=== PATIENT | female | born 1935 | race Hispanic/Latino ===

== ENCOUNTER 2016-12-25 11:32 | Inpatient (IN) | payer MEDICARE, OTHER ==
--- NOTE | 2016-12-25 12:21 | ED PDOC ---
Arrival/HPI - General Chief Complaint: Palpitations Time Seen by Provider: 12/25/16 11:59 Historian: Family EM Caveat: Language Barrier ([place] translating as per patient request) - History of Present Illness Narrative History of Present Illness (Text): 12/25/16 12:00 A 81 year old female, whose past medical history includes hypertension, hyperlipidemia, and previous blood infection, who is sent into the emergency department by PMD for a high heart rate. Patient's daughter states this morning the visiting nurse came to the house and told them to patient heart rate was 157 , so they should go see her PMD. Patient was at the PMD's office for about 2 hours but the heart rate did not decrease so she sent her to the emergency department. Patient's daughter states the patient is asymptomatic and denies any chest pain, palpitations, fever or any other complaints at this time. PMD: Dr. Huitron Past Medical History - Provider Review Nursing Documentation Reviewed: Yes - Past Medical History Past Medical History: No Previous - Cardiac Hx Cardiac Disorders: Yes Hx Hypertension: Yes - Neurological Hx Neurological Disorder: Yes (SYNCOPE) Hx Dizziness: Yes - Renal Hx Renal Disorder: Yes (ATONIC BLADDER,) - Hematological/Oncological Hx Cancer: Yes (uterine 2003 in had radiation) - Musculoskeletal/Rheumatological Hx Musculoskeletal Disorders: Yes (chronic r hip pain) Hx Arthritis: Yes (OSTEOARTHRITIS) Hx Falls: Yes Hx Osteoarthritis: Yes Hx Unsteady Gait: Yes - Gastrointestinal Hx Gastrointestinal Disorders: Yes (chronic diarrhea x 2 months on and off- IRRITABLE BOWEL SYNDROME) Hx Gastroesophageal Reflux: Yes - Genitourinary/Gynecological Hx Genitourinary Disorders: (urgency/frequency/HESITANCY-ATONIC BLADDER) Other/Comment: CERVICAL CA WITH RADIATION - Psychiatric Hx Psychophysiologic Disorder: Yes (INSOMNIA) Hx Anxiety: Yes Hx Depression: Yes (took paxil for the 1st time last night) Hx Substance Use: No - Past Surgical History Past Surgical History: No Previous - Surgical History Hx Cholecystectomy: Yes Hx Hysterectomy: Yes Other/Comment: pt has uterine ca with radiation in 2003 and had bladder lift for urinary problems post radiation - Anesthesia Hx Anesthesia: Yes Hx Anesthesia Reactions: No Hx Malignant Hyperthermia: No - Suicidal Assessment Feels Threatened In Home Enviroment: No Family/Social History - Physician Review Nursing Documentation Reviewed: Yes Family/Social History: No Known Family HX Smoking Status: Never Smoked Hx Alcohol Use: No Hx Substance Use: No Allergies/Home Meds Allergies/Adverse Reactions: Allergies No Known Allergies Allergy (Verified 12/25/16 11:48) Home Medications: Home Meds Medication Instructions Recorded Confirmed Amlodipine Besylate [Norvasc] 10 mg PO DAILY 12/16/14 12/25/16 Paroxetine HCl [Paxil] 20 mg PO DAILY 12/16/14 12/25/16 Enalapril/Hydrochlorothiazide 1 tab PO DAILY 10/06/16 12/25/16 [Enalapril-Hctz 10-25 mg Tablet] Temazepam [Restoril] 15 mg PO HS 10/06/16 12/25/16 Zolpidem [Ambien] 5 mg PO HS PRN 10/08/16 12/25/16 Review of Systems - Physician Review All systems were reviewed & negative as marked: Yes - Review of Systems Constitutional: absent: Fevers Respiratory: absent: SOB Cardiovascular: Other (high heart rate). absent: Chest Pain, Palpitations Physical Exam Vital Signs Reviewed: Yes Vital Signs Temp Pulse Resp BP Pulse Ox 12/25/16 14:44 76 18 138/85 98 12/25/16 13:19 156 H 18 129/73 99 12/25/16 12:52 143 H 118/78 12/25/16 12:20 156 H 125/62 12/25/16 11:52 98 F 157 H 18 136/88 95 Temperature: Afebrile Blood Pressure: Normal Pulse: Tachycardic Respiratory Rate: Normal Appearance: Positive for: Well-Appearing, Non-Toxic, Comfortable Pain Distress: None Mental Status: Positive for: Alert and Oriented X 3 - Systems Exam Head: Present: Atraumatic, Normocephalic Pupils: Present: PERRL Conjunctiva: Present: Normal Mouth: Present: Moist Mucous Membranes Pharnyx: Present: Normal. No: ERYTHEMA, EXUDATE Neck: Present: Normal Range of Motion Respiratory/Chest: Present: Clear to Auscultation, Good Air Exchange. No: Respiratory Distress, Accessory Muscle Use Cardiovascular: Present: Normal S1, S2, Tachycardic. No: Murmurs Abdomen: Present: Normal Bowel Sounds. No: Tenderness, Distention, Peritoneal Signs Back: Present: Normal Inspection Upper Extremity: Present: Normal Inspection. No: Cyanosis, Edema Lower Extremity: Present: Normal Inspection. No: Edema Neurological: Present: GCS=15, CN II-XII Intact, Speech Normal Skin: Present: Warm, Dry, Normal Color. No: Rashes Psychiatric: Present: Alert, Oriented x 3, Normal Insight, Normal Concentration Medical Decision Making ED Course and Treatment: 12/25/16 12:00 Impression: A 81 year old female sent in for a high heart rate with no symptoms. Differential Diagnosis include but are not limited to: supraventricular tachycardia vs rapid afib/flutter. Plan: -- EKG -- Chest X-ray -- Labs -- Urinalysis -- Adenosine -- Reassess and disposition Prior Visits: Notes and results from previous visits were reviewed. The patient last presented to the emergency department on 12/07/16 for evaluation of abdominal pain associated with nausea, vomiting and diarrhea. Progress Notes: EKG: Ordered, reviewed, and independently interpreted the EKG. Rate : 157 BPM Rhythm : Narrow complex tachycardia (appears regular) Interpretation : Nonspecific ST/T changes; No ST elevations; Normal QRS. 12/25/16 12:06 Patient given Adenosine 6mg/2ml Inj. Patient's heart rate dropped briefly from 150's - 120's. 12/25/16 12:11 Second dose of Adenosine 12 mg Patient's heart rate dropped down to the 40's but went back up into the 150's; when low, it appeared irregular. Will give 10mg of Cardizem. 12/25/16 12:37 Cardizem was given to patient. Patient showing slower afib. Will give another dose of Cardizem 10mg and place patient of a Cardizem drip. 12/25/16 13:04 Patient has a elevated D-Dimer, Will order a Angio Chest CT. 12/25/16 13:32 Repeat EKG: Ordered, reviewed, and independently interpreted the EKG. Rate : 103 BPM Rhythm : Atrial fibrillation/Flutter Interpretation : Left axis deviation, No ST/T changes. 12/25/16 14:00 Chest X-Ray: Creator : Rome Bird MD COMPARISON: 10/06/2016 and 12/08/2014. FINDINGS: No active pulmonary disease. No pulmonary nodules, masses or infiltrates. No evidence of acute, significant cardiovascular disease. No significant pleural, osseous or subdiaphragmatic abnormalities. IMPRESSION: No active disease. No acute/significant interval changes. 12/25/16 15:25 Patient on cardizem drip - will need to be admitted for new onset afib with RVR. Case discussed with Dr. Pacheco. - Critical Care Critical Care Minutes: 30 minutes - Lab Interpretations Lab Results: 12/25/16 12:15 12/25/16 12:15 Lab Results 12/25/16 12:15: WBC 8.7 D, RBC 3.65, Hgb 10.0 L, Hct 31.6 L, MCV 86.6, MCH 27.4 , MCHC 31.6, RDW 14.5, Plt Count 464 H, MPV 10.1, Gran % 71.4 H, Lymph % (Auto) 19.9 L, [place] % (Auto) 6.9 H, Eos % (Auto) 1.3 L, Baso % (Auto) 0.5, Gran # 6.23 , Lymph # 1.7, [place] # 0.6, Eos # 0.1, Baso # 0.04, PT 11.5, INR 1.06, APTT 26.4 , D-Dimer, Quantitative 2.51 H, Sodium 140, Potassium 3.8, Chloride 106, Carbon Dioxide 22, Anion Gap 16, BUN 16, Creatinine 1.0, Est GFR ( Amer) > 60, Est GFR (Non-Af Amer) 53, Random Glucose 115 H, Calcium 9.1, Total Bilirubin 0.4 , AST 31, ALT 35, Alkaline Phosphatase 92, Lactate Dehydrogenase 442, Total Creatine Kinase 47, Troponin I 0.01 D, NT-Pro-B Natriuret Pep 5090 H, Total Protein 7.2, Albumin 3.4, Globulin 3.8, Albumin/Globulin Ratio 0.9 L, Lipase 137 I have reviewed the lab results: Yes - RAD Interpretation Radiology Orders: 12/25/16 12:13 CHEST PORTABLE [RAD] Stat 12/25/16 13:04 ANGIO CHEST PE PROTOCOL [CT] Stat - Medication Orders Current Medication Orders: diltiaZEM IVPB 100mg in NS (Cardizem 100mg In Ns) 100 mls @ 5 mls/hr IV .Q20H STA; 5 MG/HR PRN Reason: Protocol Stop: 12/26/16 08:36 Last Admin: 12/25/16 12:52 Dose: 5 MLS/HR Titration Intervention Document 12/25/16 12:52 [facility] (Rec: 12/25/16 12:53 [place] [id number]) Titration Intake Container Volume 100 Titration Dosing Titration Dose 5 IV Rate 5 Intake/Decrease Start eMAR Start Stop Document 12/25/16 12:52 [facility] (Rec: 12/25/16 12:53 [place] [id number]) Intravenous Solution Start Date 12/25/16 Start Time 12:53 Discontinued Medications Adenosine (Adenosine 6 Mg/2 Ml Inj) Confirm Administered Dose 18 mg .ROUTE .STK- MED ONE Stop: 12/25/16 12:01 Last Admin: 12/25/16 12:05 Dose: 6 MG Adenosine (Adenosine 6 Mg/2 Ml Inj) 12 mg IVP STAT STA Stop: 12/25/16 12:15 Last Admin: 12/25/16 12:08 Dose: 12 MG IVP Administration Document 12/25/16 12:08 [facility] (Rec: 12/25/16 12:22 [place] [id number]) Charges for Administration # of IVP Administrations 2 Adenosine (Adenosine 6 Mg/2 Ml Inj) 6 mg IVP STAT STA Stop: 12/25/16 12:15 Last Admin: 12/25/16 12:05 Dose: 6 MG Comments: duplicate IVP Administration Document 12/25/16 12:05 [facility] (Rec: 12/25/16 12:22 [place] [id number]) Charges for Administration # of IVP Administrations 1 Diltiazem HCl (Cardizem) 10 mg IVP STAT STA Stop: 12/25/16 12:16 Last Admin: 12/25/16 12:20 Dose: 10 MG MAR Pulse and Blood Pressure Document 12/25/16 12:20 [facility] (Rec: 12/25/16 12:20 [place] [id number]) Pulse Pulse Rate (60-90) 156 Blood Pressure Blood Pressure (100/60-150/90) 125/62 IVP Administration Document 12/25/16 12:20 [facility] (Rec: 12/25/16 12:20 [place] [id number]) Charges for Administration # of IVP Administrations 1 Diltiazem HCl (Cardizem) 10 mg IVP STAT STA Stop: 12/25/16 12:38 Last Admin: 12/25/16 12:52 Dose: 10 MG MAR Pulse and Blood Pressure Document 12/25/16 12:52 [facility] (Rec: 12/25/16 12:52 [facility] [id number]) Pulse Pulse Rate (60-90) 143 Blood Pressure Blood Pressure (100/60-150/90) 118/78 IVP Administration Document 12/25/16 12:52 [facility] (Rec: 12/25/16 12:52 [facility] [id number]) Charges for Administration # of IVP Administrations 2 Iodixanol (Visipaque 320 Mg/Ml 100 Ml) Confirm Administered Dose 100 ml IV .tvCompass- MED ONE Stop: 12/25/16 13:15 - Scribe Statement The provider has reviewed the documentation as recorded by the Scribe Claudia Mendez Provider Scribe Attestation: All medical record entries made by the Scribe were at my direction and personally dictated by me. I have reviewed the chart and agree that the record accurately reflects my personal performance of the history, physical exam, medical decision making, and the department course for this patient. I have also personally directed, reviewed, and agree with the discharge instructions and disposition. Disposition/Present on Arrival - Present on Arrival Any Indicators Present on Arrival: No History of DVT/PE: No History of Uncontrolled Diabetes: No Urinary Catheter: No History of Decub. Ulcer: No History Surgical Site Infection Following: None - Disposition Have Diagnosis and Disposition been Completed?: Yes Diagnosis: Rapid atrial fibrillation Disposition: HOSPITALIZED Disposition Time: 13:40 Patient Plan: Admission, Telemetry Patient Problems: Current Active Problems Problem Status Diagnosed Acute bronchitis Acute Anemia of chronic disease Acute Sepsis due to Escherichia coli (E. coli) Acute Urinary tract infection Acute Syncope Resolved Condition: FAIR
[2016-12-25 12:27] LABS: ADD MANUAL DIFF? NO
[2016-12-25] MEDS ORDERED: diltiaZEM IVPB 100mg in NS 100 ML IV STA ×2 (12:37→18:00)
[2016-12-25 12:41] LABS: ALB/GLOB RATIO 0.9 (1.1-1.8); ALKALINE PHOSPHATASE 92 U/L (38-133); ALT/SGPT 35 U/L (7-56); AST/SGOT 31 U/L (15-39); BILIRUBIN,TOTAL 0.4 mg/dL (0.2-1.3); BLOOD UREA NITROGEN 16 mg/dL (7-21); CALCIUM 9.1 mg/dL (8.4-10.5); CARBON DIOXIDE 22 mmol/L (21-33); CHLORIDE 106 mmol/L (98-107); GFR AFRICAN-AMERICAN > 60; GLUCOSE,RANDOM 115 mg/dL (70-110); LIPASE 137 U/L (23-300); POTASSIUM 3.8 mmol/L (3.6-5.0); SODIUM 140 mmol/L (132-148); TOTAL PROTEIN 7.2 g/dL (5.8-8.3)
[2016-12-25 12:42] LABS: BASO # 0.04 K/mm3 (0.0-2.0); BASO % 0.5 % (0.0-3.0); EOS # 0.1 (0.0-0.7); EOS % 1.3 % (1.5-5.0); GRAN # 6.23 (1.4-6.5); GRAN % 71.4 % (50.0-68.0); HEMATOCRIT 31.6 % (36.0-48.0); LYMPH # 1.7 (1.2-3.4); LYMPH % 19.9 % (22.0-35.0); MEAN CELL VOLUME 86.6 fL (80.0-105.0); MEAN CORPUSCULAR HEMOGLOBIN 27.4 pg (25.0-35.0); MEAN CORPUSCULAR HGB CONC 31.6 g/dl (31.0-37.0); MEAN PLATELET VOLUME 10.1 fl (7.0-11.0); MONO # 0.6 (0.1-0.6); MONO % 6.9 % (1.0-6.0); PLATELET COUNT 464 10^3/uL (120.0-450.0); RED CELL DISTRIBUTION WIDTH 14.5 % (11.5-14.5); WHITE BLOOD COUNT 8.7 10^3/ul (4.5-11.0)
[2016-12-25 12:53] LABS: TROPONIN I 0.01 ng/mL
[2016-12-25 13:00] LABS: INR 1.06 (0.93-1.08); PARTIAL THROMBOPLASTIN TIME 26.4 Seconds (23.7-30.8)
[2016-12-25 13:02] LABS: D DIMER 2.51 mg/L FEU (0-0.50)
[2016-12-25] MEDS ORDERED: Iodixanol 320 MG/ML 100 ML BOTTLE IV ONE (13:14)
--- NOTE | 2016-12-25 14:00 | RAD ---
PROCEDURE: Chest portable HISTORY: tachycardia COMPARISON: 10/06/2016 and 12/08/2014. TECHNIQUE: Technique: Single view portable semi erect @ 12:23. FINDINGS: No active pulmonary disease. No pulmonary nodules, masses or infiltrates. No evidence of acute, significant cardiovascular disease. No significant pleural, osseous or subdiaphragmatic abnormalities. IMPRESSION: No active disease. No acute/significant interval changes.
--- NOTE | 2016-12-25 15:07 | CT ---
PROCEDURE: CT Chest with contrast (Pulmonary Angiogram) HISTORY: new tachycardia, post-hosp - r/o PE COMPARISON: None available. TECHNIQUE: Axial computed tomography images were obtained of the chest in the pulmonary arterial phase of enhancement. Coronal and sagittal reformatted images were created and reviewed. Intravenous contrast dose: 100 mL of Omnipaque 350 Radiation dose: Total exam DLP = 597.15 mGy-cm. FINDINGS: PULMONARY ARTERIES: Unremarkable. No pulmonary embolism. AORTA: No acute findings. No thoracic aortic aneurysm. LUNGS: Mild pulmonary vascular congestion is noted. No evidence of pneumonia or mass lesion in the lungs. There is a partially calcified 8.5 millimeter nodule at the superior portion of the right lung lower lobe image 40 series 5. There is a pleural-based 7 millimeter nodule at the left lung base. PLEURAL SPACES: Unremarkable. No effusion or pneuomothorax. HEART: Mild cardiomegaly is noted. . No significant pericardial effusion. LYMPH NODES: Slightly prominent mediastinal lymph nodes. BONES, CHEST WALL: Unremarkable. No fracture or destructive lesion OTHER FINDINGS: Unremarkable. IMPRESSION: No evidence of pulmonary embolus. Mild cardiomegaly. Mild pulmonary vascular congestion. Right lung lower lobe partially calcified 8.5 millimeter nodule. 7 millimeter pleural based nodule at the left lung base. No evidence of pneumonia or mass lesion in the lungs. Small hiatus hernia. Mild esophageal mucosal thickening. Mildly enlarged thyroid gland.
[2016-12-25 15:08] LABS: PH,URINE 5.5 (4.7-8.0); URINE BILIRUBIN NEGATIVE (NEGATIVE); URINE BLOOD MODERATE (NEGATIVE); URINE GLUCOSE (UA) NEGATIVE (NEGATIVE); URINE KETONE NEGATIVE (NEGATIVE); URINE LEUKOCYTE ESTERASE TRACE Leu/uL (NEGATIVE); URINE PROTEIN 30 mg/dL (<30 mg/dL); URINE UROBILINOGEN 0.2 E.U./dL (<1 E.U./dL)
[2016-12-25 15:09] LABS: URINE APPEARANCE SL CLOUDY (CLEAR); URINE COLOR YELLOW (YELLOW)
[2016-12-25 15:21] LABS: URINE BACTERIA FEW (NEG)
--- NOTE | 2016-12-25 17:38 | CARD ---
APPROVED REPORT EKG Measurement Heart [id number] PA 112P [id number] <Conclusion> Junctional tachycardia vs A Flutter with 2:[address] and T wave abnormality Abnormal ECG
--- NOTE | 2016-12-25 18:14 | CARD ---
APPROVED REPORT EKG Measurement Heart [id number] <Conclusion> Atrial flutter with variable AV block Abnormal ECG
[2016-12-25] MEDS ORDERED: Enoxaparin 60 mg Syringe SC SCH ×2 (19:15)
[2016-12-25 19:16] VITALS: BMI 28.1
[2016-12-25] MEDS ORDERED: Magnesium Sulfate 2 GM in Sodium Chloride 0.9% 100 ML IVPB ONE (20:12)
--- NOTE | 2016-12-25 20:34 | CP.PCM.PN ---
Subjective - Date & Time of Evaluation Date of Evaluation: 12/25/16 Time of Evaluation: 20:09 - Subjective Subjective: Nurse called and told that Mag level was 1.6 mEq. Patient was seen at bedside. Speaks Ch[place]. Has no acute symptoms now. This 81 year old woman was admitted with atrial fibrillation with RVR. Has PMH of HTN,HLD,depression, chronic insomnia , OA of right hip, UTI, appendectomy. 1:19 Later on, I was called and told that monitor showed atrial fibrillation with RVR ,rate sustaining above 130 per minute. I had increased cardizem from 10 ml per hour to 15 ml per hour. Objective - Vital Signs/Intake and Output Vital Signs (last 24 hours): Temp Pulse Resp BP Pulse Ox 98.5 F 76 18 138/70 98 12/25/16 18:58 12/25/16 18:58 12/25/16 18:58 12/25/16 18:58 12/25/16 16:25 - Medications Medications: Current Medications Atorvastatin Calcium (Lipitor) 10 mg PO HS BONNIE Enoxaparin Sodium (Lovenox) 60 mg SC 2000 BONNIE PRN Reason: Protocol Furosemide (Lasix) 20 mg IVP Q12 BONNIE diltiaZEM IVPB 100mg in NS (Cardizem 100mg In Ns) 100 mls @ 10 mls/hr IV .Q10H STA; 10 MG/HR PRN Reason: Protocol Stop: 12/26/16 03:59 Last Admin: 12/25/16 18:00 Dose: 10 mls/hr Lisinopril (Zestril) 10 mg PO DAILY BONNIE Paroxetine HCl (Paxil) 20 mg PO HS BONNIE Zolpidem Tartrate (Ambien) 5 mg PO HS PRN; Protocol PRN Reason: Insomnia - Labs Labs: PT 11.5 Seconds (9.9-11.8) 12/25/16 12:15 INR 1.06 (0.93-1.08) 12/25/16 12:15 APTT 26.4 Seconds (23.7-30.8) 12/25/16 12:15 - Constitutional Appears: Well, In Acute Distress - Head Exam Head Exam: ATRAUMATIC, NORMAL INSPECTION, NORMOCEPHALIC - Eye Exam Eye Exam: Normal appearance - ENT Exam ENT Exam: Normal External Ear Exam - Neck Exam Neck Exam: Normal Inspection - Respiratory Exam Respiratory Exam: NORMAL BREATHING PATTERN - Cardiovascular Exam Cardiovascular Exam: Tachycardia, Irregular Rhythm. absent: JVD - GI/Abdominal Exam GI & Abdominal Exam: absent: Distended - Rectal Exam Rectal Exam: Deferred - Extremities Exam Extremities Exam: Normal Inspection - Back Exam Back Exam: NORMAL INSPECTION - Neurological Exam Neurological Exam: Alert, Oriented x3 - Psychiatric Exam Psychiatric exam: Normal Affect, Normal Mood - Skin Skin Exam: Normal Color Assessment and Plan - Assessment and Plan (Free Text) Assessment: A/P:Atrial fibrillation with RVR. Hypomagensemia. HTN. HLD. Magnesium sulfate 1 Gram IV stat given. Mag level this AM. Troponin this AM. Cardizem drip rate was increased to 15 ml per hour.
--- NOTE | 2016-12-25 20:53 | HP ---
CHIEF COMPLAINT: Fast heart rate. HISTORY OF PRESENT ILLNESS: This is a 81-year-old female with a history of hypertension treated for dehydration 3 weeks ago in [facility]. She was readmitted a week ago for acute urinary tract infection. The patient was evaluated this morning by a visiting nurse at home when found to have heart rate at 150 per minute. The patient was advised to see a primary care doctor. In the office, her heart rate remained fast. Her EKG in the office showed supraventricular tachycardia with a heart rate of 157. The patient denied any chest pain, shortness of breath, heart palpitations, dizziness or lightheadedness. She, however, was advised to go to Emergency Room for evaluation and treatment. PAST MEDICAL HISTORY: History of hypertension, hyperlipidemia, depression with chronic insomnia, severe osteoarthritis of the hip, recent hospitalization for dehydration and urinary tract infection a week ago, status post appendectomy 3 weeks ago. History of cervical cancer 40 years ago, s/o radiation therapy. History of atonic bladder. ALLERGIES: The patient has no known allergies. CHRONIC MEDICATIONS AT HOME: Includes atorvastatin 10 mg daily, zolpidem 5 mg daily, Paxil 20 mg daily, enalapril 10 mg twice a day and Nexium 40 mg daily. FAMILY HISTORY: Both parents are , history of heart disease and hypertension. SOCIAL HISTORY: The patient denies any smoking, alcohol or drug use. The patient is retired. She lives alone in a senior building. She is independent of activity of daily living and ambulatory. REVIEW OF SYSTEMS: The patient complains of decrease of appetite for the past 3 weeks. The patient complains of weight loss for the past 3 weeks. She denies any fever. The patient denies any ocular symptoms. She denies any nasal congestion, sore throat or dysphagia. The patient denies any cough, wheezing or shortness of breath. The patient denies any chest pain, heart palpitations or shortness of breath. The patient denies any abdominal pain, nausea, vomiting, constipation or diarrhea. She denies any dysuria or hematuria. The patient complains of knee pains and right hip pain. The patient denies any headache, dizziness, numbness, weakness or tremor. The patient complains of chronic insomnia and chronic depression, but denies any suicidal thoughts. PHYSICAL EXAMINATION: VITAL SIGNS: Showed a temperature of 98.0, pulse in the Emergency Room 157 irregular, blood pressure 136/88 and respiratory rate 18. Her oxygen saturation was 95% on room air. GENERAL: The patient was alert, awake, oriented, in no acute form of distress. HEAD: Normocephalic, atraumatic. EYES: Pupils reactive to light. Oral mucosa was moist. NECK: Supple, no neck masses, no JVD. LUNGS: Clear to auscultation. HEART: Irregular rhythm, rate of 150 per minute. ABDOMEN: Soft, nontender, nondistended. No CVA tenderness. Bowel sounds were positive. EXTREMITIES: Showed no edema, but chronic varicose veins in the lower extremities. Her distal pulses were palpable. DIAGNOSTIC TESTS: CBC showed significant for WBC 8.7, hemoglobin 10, hematocrit 31.6. Her chemistry showed normal electrolytes, normal renal function. Her troponin was negative, but BNP high at 5000. The patient had elevated D-dimer at 2.51. Urinalysis showed moderate blood and trace of leukocytes. Her EKG in the Emergency Room showed a fast heart rate of 150 with signs of probably atrial flutter and nonspecific ST-T changes. Her chest x-ray showed no acute changes. Due to elevated D-dimer she had a CT angiogram done, which was negative for pulmonary embolism, but showed cardiomegaly and vascular congestion. In the Emergency Room, she was treated with 2 doses of adenosine and started on Cardizem IV drip. ASSESSMENT: The patient is a 81-year-old female with new onset of atrial fibrillation with rapid ventricular response, acute congestive heart failure related to cardiac arrhythmia, urinary tract infection, hypertension. PLAN OF TREATMENT: The patient was admitted to telemetry and continued with IV Cardizem drip. Will continue monitoring her heart rate and rhythm. The patient was also treated with IV Lasix and Lipitor and maintained on Paxil and zolpidem. Cage Manager was called on consult. The patient will be started also on anticoagulation. Karly Barron MD cc: [id number] TT: 12/25/2016 20:53:23 [email or web address]
[2016-12-25] MEDS ORDERED: diltiaZEM IVPB 100mg in NS 100 ML IV PRN (23:10)
[2016-12-26] MEDS: diltiaZEM IVPB 100mg in NS 100 ML IV PRN ×2 (01:30→07:55)
[2016-12-26 07:26] LABS: MEAN CELL VOLUME 85.1 fL (80.0-105.0); MEAN CORPUSCULAR HEMOGLOBIN 27.1 pg (25.0-35.0); MEAN CORPUSCULAR HGB CONC 31.8 g/dl (31.0-37.0); RED CELL DISTRIBUTION WIDTH 14.5 % (11.5-14.5); WHITE BLOOD COUNT 8.9 10^3/ul (4.5-11.0)
[2016-12-26 07:48] LABS: ALB/GLOB RATIO 0.9 (1.1-1.8); ALKALINE PHOSPHATASE 110 U/L (38-133); ALT/SGPT 33 U/L (7-56); AST/SGOT 32 U/L (15-39); BILIRUBIN,TOTAL 0.4 mg/dL (0.2-1.3); BLOOD UREA NITROGEN 10 mg/dL (7-21); CALCIUM 9.2 mg/dL (8.4-10.5); CARBON DIOXIDE 23 mmol/L (21-33); CHLORIDE 104 mmol/L (98-107); GFR AFRICAN-AMERICAN > 60; GLUCOSE,RANDOM 133 mg/dL (70-110); POTASSIUM 3.6 mmol/L (3.6-5.0); SODIUM 140 mmol/L (132-148); TOTAL PROTEIN 7.6 g/dL (5.8-8.3)
[2016-12-26 08:51] LABS: MAGNESIUM 1.8 mg/dL (1.7-2.2)
[2016-12-26 08:56] LABS: TROPONIN I < 0.01 ng/mL
[2016-12-26] MEDS: Enoxaparin 80 mg Syringe SC SCH ×2 (10:55→22:10)
[2016-12-26 11:15] LABS: CHOLESTEROL 110 mg/dL (130-200)
--- NOTE | 2016-12-26 11:31 | CON ---
DATE: 12/26/2016 REASON FOR CONSULTATION: AFib with rapid ventricular rate. BRIEF CLINICAL HISTORY: This is a 81-year-old female with a past medical history significant for hyp ertension, chronic atrial fibrillation for many years. As per daughter, Debra, that patient goes mojgan k and forth in atrial fibrillation, who came in with a fast heart rate. Denies any chest pain, short ness of breath, any palpitation. The patient says yesterday patient went to Dr. Pacheco's office, f ound to be pulse is high, so admitted here. PAST MEDICAL HISTORY: Significant for hypertension, osteoporosis, irritable bowel syndrome, diarrhea , history of cervical cancer, history of radiation, status post cholecystectomy. PAST SURGICAL HISTORY: Significant patient had recently a month ago, abdominal pain, diarrhea, admit rocky to [facility], found to be acute appendicitis, status post appendectomy, went home. L ater on, patient had a UTI, fever, sepsis, thought to be the abscess in the appendix at the operative site, but found to be the UTI. Significant for cholecystectomy many years ago, hysterectomy, found to be cervical cancer, later on radiation and chemo. History of lifting of the bladder. ALLERGIES: HISTORY OF ALLERGY. SOCIAL HISTORY: Denies smoking. Denies any history of alcohol abuse. Lives with the daughter named Debra. CURRENT MEDICATIONS: The patient is taking at home zolpidem, restoril, Paxil, enalapril, ciprofloxac in, amlodipine. REVIEW OF SYSTEMS: As per HPI. PREVIOUS CARDIAC WORKUP: The patient had echocardiography 12/10/2014 that showed ejection fraction 55 %-60%, trace aortic regurgitation, aortic sclerosis with mild , trace mitral regurg, mild to modera te tricuspid regurgitation, RV systolic pressure of 40 dated 12/10/2014. The patient had a carotid ul trasound 12/09/2014 that showed bilateral carotid 20%-39% stenosis. Previous EKG reviewed. The patie nt had PVCs, but no history of AFib/flutter in the past. REVIEW OF SYSTEMS: As per HPI. PHYSICAL EXAMINATION: VITAL SIGNS: Temperature afebrile, heart rate 79, blood pressure 139/75. HEENT: PERRLA. Extraocular muscles intact. NECK: Supple. No carotid bruits. No thyromegaly. CHEST: Clear to auscultation. HEART: S1, S2 regular. ABDOMEN: Soft. EXTREMITIES: Clubbing, cyanosis negative. BLOOD WORKUP: WBC 8.9, hemoglobin 10.5, hematocrit 33.0, platelet count 478. Chemistry showed sodiu m 140, potassium 3.6, chloride of 104, carbon dioxide , anion gap of 10, BUN 17, creatinine 1.0. Troponin 0.01. EKG shows atrial flutter with 4:1 conduction, rate in the 80s. IMPRESSION: Possible new onset of atrial fibrillation and flutter, though patient's daughter, Debra, said that patient has irregular beat, but on previous EKG since 2014 shows normal sinus with atrial premature contractions. Possibly, patient was admitted recently to the [facility] acute appendicitis and complication at that time might have atrial fibrillation. The patient is n ot currently on anticoagulation. History of echo in the past shows preserved left ventricular functi on, recent surgery and history of urinary tract infection and recent history of infection. Possibly, that triggered the atrial fibrillation on the baseline as patient had some irregular heart beat and arrhythmia. Currently, patient is on IV Cardizem and the rate is well controlled with 4:1 conduction . We will switch over to p.o. Cardizem and we will repeat the echo. Start anticoagulation with Love nox. Further recommendation depending on the hospital course. stress test to assess any ische yamile substrate. Further recommendation as mentioned. We will follow with you and depending upon the hospital course. Thank you, Dr. Pacheco, for providing us the opportunity in taking care of the patient. Jimmy Garcia MD cc: [id number] TT: 12/26/2016 10:55:34 Confirmation # [id number] Dictation # [id number] en 12/26/2016 10:30:51
[2016-12-27 08:09] LABS: HEMATOCRIT 32.9 % (36.0-48.0); MEAN CELL VOLUME 85.2 fL (80.0-105.0); MEAN CORPUSCULAR HEMOGLOBIN 26.7 pg (25.0-35.0); MEAN CORPUSCULAR HGB CONC 31.3 g/dl (31.0-37.0); MEAN PLATELET VOLUME 10.1 fl (7.0-11.0); RED CELL DISTRIBUTION WIDTH 14.6 % (11.5-14.5)
[2016-12-27] MEDS ORDERED: Aminophylline 25 mg/ml Inj ONE (08:15)
--- NOTE | 2016-12-27 08:34 | CON ---
DATE: 12/26/2016 CHIEF COMPLAINT: Abdominal pain. HISTORY OF PRESENT ILLNESS: This is a 81-year-old female who is known to me. The patient had a rece nt appendicitis. She was seen in [facility] and underwent an appendectomy. Postoper atively, patient reports she had a fever and chills. She presented to the hospital and was readmitte d, reportedly was found to have a urinary tract infection. The patient was discharged home. At home , visiting nurse found that the patient had severe tachycardia. She was brought back to the hospital where she was then readmitted. The patient has had a Workman catheter inserted which remains in place as this time. Urologically, the patient has a history of incomplete bladder emptying. She had a ur ethral sling many years ago and since that time has had episodes of difficulty voiding. She reports when she had the urinary infection, she was having some dysuria along with urinary frequency, but fel t she was not emptying fully and the Workman catheter was then placed. A urologic consultation was the n requested. PAST MEDICAL HISTORY: Significant for hypertension, hyperlipidemia, depression, insomnia, arthritis, recent appendectomy, urinary tract infections, supraventricular tachycardia. MEDICATIONS: At home include Crestor, Ambien, Paxil, enalapril and Nexium. Currently does not appea r to be on antibiotics. ALLERGIES: No known drug allergies. FAMILY HISTORY: Noncontributory. SOCIAL HISTORY: No smoking or ETOH use. REVIEW OF SYSTEMS: The patient currently reports feeling well. She denies any current palpitations or shortness of breath. She does report some mild abdominal pain which appears to be improving since surgery. She denies any current fevers or chills. Other systems are negative. PHYSICAL EXAMINATION: GENERAL: The patient is awake, alert, in no acute distress. She is afebrile, temp was 98.9, pulse n ow 72, blood pressure 137/79, respirations 18. NECK: Supple. There is no adenopathy. CHEST: Reveals normal inspiratory effort. CARDIAC: Showed a regular pulse. There is no peripheral edema. ABDOMEN: Soft. There is some mild diffuse tenderness. There is no rebound or guarding. There is n o organomegaly. There is no costovertebral angle tenderness. GENITOURINARY: There is a Workman catheter in place, which is draining clear urine. EXTREMITIES: Showed no cyanosis. There was some trace edema. LABORATORY DATA: WBC count 8.9. GFR 53. BNP of 5090 yesterday. Urinalysis showed 5-10 RBC, 2-5 WB C, negative for nitrites. On radiologic exam: No pertinent urologic x-rays were done. IMPRESSION AND PLAN: This is a 81-year-old female admitted with supraventricular tachycardia a few w eeks after appendectomy and a urinary infection. Currently, patient is afebrile. She does not appea r to be on any antibiotics. I would recommend a repeat urine culture at this time given the patient has a Workman catheter in place. The patient is going for some testing regarding her supraventricular tachycardia. When the patient has recovered fully, is ambulatory and ready for discharge, the Workman catheter should be removed for a voiding trial. The patient should then follow up in my office to re check her postvoid residual and make sure she is emptying adequately as well as rechecking her urine to rule out any further urinary infection. The patient does have a history of incomplete emptying, s o as long as her postvoid residual is acceptable, I would rather her be discharged without the Workman catheter as this will hopefully prevent further urinary infection. Thank you for allowing us to participate in the care of this patient. We will follow her with you. Oscar Cuba MD cc: [id number] TT: 12/27/2016 06:26:13 Confirmation # [id number] Dictation # [id number] rakel
[2016-12-27 08:59] LABS: ALB/GLOB RATIO 0.9 (1.1-1.8); BILIRUBIN,TOTAL 0.5 mg/dL (0.2-1.3); CALCIUM 9.2 mg/dL (8.4-10.5); POTASSIUM 3.8 mmol/L (3.6-5.0); TOTAL PROTEIN 7.4 g/dL (5.8-8.3)
--- NOTE | 2016-12-27 09:11 | PN ---
DATE: 12/26/2016 This is a 81-year-old, Nigerian speaking female who was brought in for what was perceived as atrial fibrillation with rapid ventricular rate, and we are learning that in the daughter's recall, her atrial fibrillation had been ongoing. Uncertain if she understands the term as in our office, this was a new finding and in her prior admissions, she had been in what was perceived as normal sinus rhythm with occasional extrasystoles. Nevertheless, the visiting nurse that had been at the patient on the day of admission, noted a rapid heart rate and when she notified us, we asked that the patient come to the office or go to the Emergency Room and when she came to the office, the EKG tracing was suspicious for atrial fibrillation, so she was sent to the Emergency Room and she was placed on Cardizem drip when she would not convert and the rate remained high. She was totally asymptomatic at home, in the office and in the Emergency Room and has had no further discomfort. Only has an indwelling catheter that was placed on her discharge from [facility] less than 2 weeks ago and that was the reason why the visiting nurse was at the home. Other significant past history is recent bouts of diarrhea requiring admission, a subsequent finding of an abnormal thickening in the appendiceal region on that admission and thereby required an appendectomy OTHER COMORBIDITIES AND PAST SURGERY: Cholecystectomy, hysterectomy, history of cervical cancer with subsequent radiation and chemo and because of the symptoms, she has had prior lifting of the bladder. PAST MEDICAL HISTORY: Also is remarkable for hypertension, osteoporosis, irritable bowel syndrome, history of the cervical cancer as mentioned before and cholecystectomy and appendectomy. ALLERGIES: There is no documentation of a history of allergy. SOCIAL HISTORY: Nonsmoker or alcohol. Home medications were reviewed and continued and we are grateful for the consult by Dr. Garcia and see a plan of care. The daughter, Anna, approached us this morning and asked for a consultation with Dr. Cuba regarding the Workman catheter as she has had this since discharge from [facility]. The patient had had cardiac workup in the past with no overwhelming determinations other than mild aortic stenosis and a right ventricular systolic pressure of 40. Prior evaluations were unremarkable for cardiac arrhythmia and for us, this is the first instance. PHYSICAL EXAMINATION: GENERAL: The patient is asymptomatic, alert and oriented to all spheres, speaking Nigerian and translated through the daughter. We again are explaining the understanding of her irregular heart rhythm and trying to bring the patient up to date. We did not get a confirmation that this had been ongoing in the past. VITAL SIGNS: Temperature in the morning 98.9, her weight is listed as 159 pounds with 4 ounces, the pulse rate is listed at 75, the blood pressure 119/68 and an O2 sat not listed, but a respiratory rate of 18. HEENT: Oral mucosa is moist. Pupils are equally round and reactive to light and accommodation. Extraocular movement is intact. No appreciable jaundice in the sclerae nor is there any injection. NECK: Supple. No bruit appreciated. HEART: Irregularly irregular in rhythm, no S3 appreciated. LUNGS: Have diminished breath sounds, but no adventitious sounds. No wheeze, no rhonchi. ABDOMEN: Soft, bowel sounds are present. Curiously, she notes that she has few , but little, bowel movements and so far in the morning, at the time of rounds at 10:00, she had had 3 small bowel movements. She does not consider this diarrhea, but rather regular. We have some concern, but she says it is not a change and noting that in the past she had irritable bowel syndrome, perhaps this is normal. NEUROLOGIC: She is moving all her extremities: There is no weakness, no focal neurological signs. Once again, we reinforced that the CT angio done on admission was negative for PE. MORNING LABORATORIES: Showed triglycerides of 213 and normal cholesterol of 110 with an LDL of 43. The A1c is listed as 6.2 and we have no other remarkable abnormalities. Since she arrived, her H and H has remained stable with 10.5 and a hematocrit of 33, platelet count 478, normal WBCs 8900 with no specified shift. The glucose was 133 and thereby the request for the hemoglobin A1c, not consistent with uncontrolled diabetes, but perhaps impaired glucose tolerance. CURRENT MEDICATIONS: Cardizem drip, atorvastatin 10, low-dose Lovenox, furosemide 20, magnesium replacement p.r.n., metoprolol tartrate 25 mg twice a day, Paxil 20, zolpidem 5 and diltiazem to be started later on in the day orally. IMPRESSION: 1. Arrhythmia, atrial fibrillation, possibly with rapid ventricular rate, versus atrial flutter. Await for television maintenance man to interpret and advise. 2. History of recent appendectomy. 3. Workman in place. PLAN OF CARE: For now, continue telemetry, observe response to the IV Cardizem and as per cardiology. Tereso Ferro MD cc: [id number] TT: 12/27/2016 09:10:47 Confirmation # [id number] Dictation # [id number] en JULY
[2016-12-27] MEDS: Enoxaparin 80 mg Syringe SC SCH ×2 (12:17→22:33)
--- NOTE | 2016-12-27 13:35 | PN ---
DATE: 12/27/2016 REASON FOR CONSULTATION AND FOLLOWUP: AFib with rapid ventricular rate. BRIEF CLINICAL HISTORY: This is a 81-year-old female with a past medical history significant for hyp ertension, chronic atrial fibrillation possibly for many years, irregular heart rate, admitted with A Fib with rapid ventricular rate. PAST HISTORY: Significant for hypertension, hyperlipidemia, recently history of appendectomy at [facility]. The patient was on IV Cardizem, now changed to p.o. Significantly improved, heart rate improved. Going for a stress test and echo today. Denies any chest pain, shortness of b reath, any palpitation. Daughter is at the bedside named Debra. PHYSICAL EXAMINATION: As follows: VITAL SIGNS: Temperature afebrile, heart rate 99, blood pressure 137/93. HEENT: PERRLA, intact. NECK: Supple. No carotid bruits. No thyromegaly. CHEST: Clear to auscultation. HEART: S1, S2 regular. ABDOMEN: Soft. EXTREMITIES: Clubbing and cyanosis negative. BLOOD WORKUP: As follows: WBC 8, hemoglobin 10.3, hematocrit 32.9, platelet count 468. Chemistry s hows sodium 140, potassium 3.8, chloride 103, carbon dioxide 26, anion gap of 15, BUN 15, creatinine 1.1. IMPRESSION: Atrial fibrillation with rapid ventricular rate, now rate is well controlled. We will c hange to Cardizem-CD from tomorrow. Continue atorvastatin. Continue beta allyson. Now, patient is on Lovenox. We will get echo and stress test today. If the stress test is negative, we will start E liquis also. Possible discharge tomorrow. We will follow with you. Thank you, Dr. Pacheco for providing us the opportunity in taking care of the patient. Further recommendation after the stress test and echo findings. We will follow with you. We change Cardizem-CD after the night to CD from tomorrow 240 mg daily. Jimmy Garcia MD cc: [id number] TT: 12/27/2016 13:34:39 Confirmation # [id number] Dictation # [id number] sn
--- NOTE | 2016-12-27 18:38 | CARD ---
" APPROVED REPORT EXAM: Two-dimensional and M-mode echocardiogram with Doppler and color Doppler. INDICATION Atrial Fibrillation 2D DIMENSIONS Left Atrium (2D)4.2 (1.6-4.0cm)IVSd0.9 (0.7-1.1cm) LVDd5.5 (3.9-5.9cm)PWd1.0 (0.7-1.1cm) LVDs4.5 (2.5-4.0cm)FS (%) 18.4 % LVEF (%)37.4 (>50%) M-Mode DIMENSIONS Aortic Root2.30 (2.2-3.7cm)Aortic Cusp Exc.1.50 (1.5-2.0cm) Aortic Valve AoV Peak Cohzwqbo386.0cm/Foreign Peak GR.20mmHg Mitral Valve E/A ratio0.0 TDI E/Lateral E'0.0E/Medial E'0.0 Tricuspid Valve TR Peak Mcmleeok909da/sRAP [id number] Peak Gr.35mmHg [id number] LEFT VENTRICLE The left ventricle is normal size. There is normal left ventricular wall thickness. The systolic function is mildly impaired.\\| fib) There is normal LV segmental wall motion. A Fib No left ventricle thrombus noted on this study. There is no ventricular septal defect visualized. There is no left ventricular aneurysm. There is no mass noted in the left ventricle. RIGHT VENTRICLE The right ventricle is normal size. There is normal right ventricular wall thickness. The right ventricular systolic function is normal. ATRIA The left atrium is mildly dilated. The right atrium is mildly dilated. The interatrial septum is intact with no evidence for an atrial septal defect. AORTIC VALVE The aortic valve is mildly thickened but opens well. The aortic valve is mildly to moderately sclerotic. There is trace aortic regurgitation. There is no aortic valvular stenosis. There is no aortic valvular vegetation. MITRAL VALVE The mitral valve is thickened but opens well. Mitral regurgitation is mild. There is no mitral valve stenosis. There is no evidence of mitral valve prolapse. TRICUSPID VALVE The tricuspid valve leaflets are thickened , but open well. There is mild to moderate tricuspid regurgitation.RVSP-45 mmof hg There is no tricuspid valve stenosis. There is no tricuspid valve prolapse or vegetation. PULMONIC VALVE The pulmonic valve is mildly thickened. There is mild pulmonic valvular regurgitation. There is no pulmonic valvular stenosis. GREAT VESSELS The aortic root is normal in size. The ascending aorta is normal in size. The pulmonary artery is normal. The IVC is dilated. PERICARDIAL EFFUSION There is no pleural effusion. There is no pericardial effusion. <Conclusion> The left ventricle is normal size. There is normal left ventricular wall thickness. The systolic function is mildly impaired.\\| There is trace aortic regurgitation. Mitral regurgitation is mild. There is mild to moderate tricuspid regurgitation.RVSP-45 mmof hg"
--- NOTE | 2016-12-27 21:54 | CARD ---
APPROVED REPORT Protocol: LEXISCAN Test Type: Lexiscan Sestamibi Stress Test Attending Physician: Dr. Jimmy Kidd Referring Physician: Dr. Pacheco Test Indications: Abnormal ECG Height:5 ft 3 in Weight:159lbs Medications: cardizem lovenox lopressor Paxil Medical History: 81 y/o female hx of atrial fib hypertension Target HR: 141 bpm Resting ECG: Atrfial Fibrillation. PVCs/Abberrantly Conducted Beats. Resting Heart Rate: 71 bpm Resting Blood Pressure: 130/80mmHg Submaximum (85%): 120 bpm PROCEDURE Pharmacologic stress testing was performed using 0.4mg per 5ml of regadenoson given intravenously over 7-10 seconds. POST EXERCISE Reason for Termination: Protocol completed Target HR: No Max HR: 92 bpm 70% of Maximum Predicted HR: 141 bpm Exercise duration: 05:05 min:sec, 0 Stage Exercise capacity: 1.0METs Max Blood Pressure: 132/74mmHg Blood Pressure response to exercise: normal resting BP - appropriate response Heart Rate response to exercise: appropriate Chest Pain: No, none Angina index: 0 Arrhythmia: Yes, Atrial Fibrillation as on Resting EKG. ST Change: No, none Deviation: 0 mm TEST SUMMARY [id number]/80.0. INFUSIONDOSE 101:000.00.01.145292/80.1. INFUSIONDOSE 201:000.00.01.081/.8. INFUSIONDOSE 301:[id number]/74.12. INFUSIONDOSE 401:000.00.01.961201/74.4. INFUSIONDOSE 501:000.00.01.096/.12. INFUSIONDOSE 600:050.00.01.092/.12. INTERPRETATION Stress EKG Conclusion: IV LEXISCAN NUCLEAR STRESS TEST NEGATIVE FOR CHEST PAIN AND NEGATIVE FOR ST-T CHANGES, NUCLEAR SCAN REPORT PENDING. Signed by Jimmy Kidd Electronically Approved: 12/27/2016 10:37:50 EXAM: Myocardial Perfusion REST/STRESS Stress Test Type: Pharmacologic Imaging Protocol Rest Spect myocardial perfusion imaging was performed in supine position 60 minutes following the injection of 10.9 mCi of Tc-99 Myoview. At peak stress, the patient was injected intravenously with 30.6mCi of Tc-99 tetrofosmin after an infusion time of 0 minutes and 10 seconds. Gated Stress Spect was performed 80 minutes after intravenous Tc-99 Myoview injection. The images were gated to evaluate regional wall motion and calculate ventricular ejection fraction.Images were reconstructed using backfilter projection method in short horizontal and verticle long axis. Spect slices were generated. LV Perfusion The quality of the study is good. The left ventricle is mildly enlarged in size. The right ventricle is unremarkable. The lung uptake is normal. The distribution of tracer reveals an area of moderately to severlely decreased perfusion involving mid to distal anterior and apical/ distal inferio wall on the stress study. The remainder of the LV myocardium is unremarkable. The rest myocardial perfusion study shows partial improvement of the anerior defect and no significant change in the apical/ inferior defects. Wall Motion Wall motion study shows anteroapical hypokinesis. LVEF = 40%. Conclusion 1. Abnormal SPECT myocardial perfusion study. 2. Partially reverislble, anterior defect is suggestive of ischemia. 3. Fixed, apical/ distal inferior defect could be due to previous myocardial injury and/ or low lying breast attenuation. 4. Mild to moderate LV dysfunctioin despite anteroapical hypokinesis.
--- NOTE | 2016-12-27 23:46 | PN ---
DATE: 12/27/2016 The patient was seen this morning. The patient is feeling better. The patient denies any heart palpitation or chest pain. She was admitted for new onset of atrial fibrillation with rapid ventricular response, treated with IV Cardizem. Her heart rate slowed down, and the patient is currently off IV Cardizem. PHYSICAL EXAMINATION THIS MORNING: VITAL SIGNS: Stable. Temperature 98.2; pulse 99, irregular; blood pressure 137 /93 and respiratory rate 18. GENERAL: Comfortable, alert, awake, oriented. HEENT: Head is normocephalic, atraumatic. Oral mucosa is moist. NECK: Supple. LUNGS: Clear to auscultation. HEART: With irregular rhythm, rate of 90 per minute. ABDOMEN: Soft, nontender, nondistended. EXTREMITIES: With no edema. DIAGNOSTIC TESTS: Stable CBC with hemoglobin 10.3, hematocrit 32.9. Her chemistry with normal electrolytes. BUN 15, creatinine 1.1. TSH is suppressed at 0.18. Her preliminary urine culture growing gram-negative rods. Final report is pending. The patient had echocardiogram today, which showed normal left ventricle size and normal wall thickness, systolic function moderately impaired. There was trace aortic regurgitation. Her stress test showed anterior apical hypokinesis with left ventricular ejection fraction of 40%, also all suggestive of ischemia. ASSESSMENT: 1. Atrial fibrillation with improved heart rate. 2. Abnormal stress test with inferior ischemia. 3. Hypertension. 4. Anemia. 5. Urinary tract infection. PLAN OF TREATMENT: Case was discussed with supervisor [employer] and a family member. We will continue Cardizem p.o. I will adjust the dose as needed. The patient is currently on Lovenox. Will need anticoagulant before discharging home. Will discuss with supervisor [employer] plans regarding abnormal stress test. The patient will be maintained on current medication. We will wait for final urine culture to start antibiotics. Karly Barron MD cc: [id number] TT: 12/27/2016 23:45:37 Confirmation # [id number] Dictation # [id number] [facility]
[2016-12-28] MEDS ORDERED: Oxycodone/Acetaminophen 5/325 mg Tab PO STA (05:27)
--- NOTE | 2016-12-28 05:29 | CP.PCM.PN ---
Subjective - Date & Time of Evaluation Date of Evaluation: 12/28/16 Time of Evaluation: 05:28 - Subjective Subjective: Patient seen for both shoulder arthritic pain. Has no other complaints now. Wants something stronger than tylenol. Speaks Hebrew. This 81 year old woman was admitted with atrial fibrillation with RVR. Has PMH of HTN,HLD,depression, chronic insomnia , OA of right hip, UTI, appendectomy. Objective - Vital Signs/Intake and Output Vital Signs (last 24 hours): Temp Pulse Resp BP Pulse Ox 99 F 71 19 138/75 94 L 12/28/16 00:01 12/28/16 04:19 12/28/16 00:01 12/28/16 00:01 12/26/16 05:18 Intake and Output: 12/27/16 12/28/16 18:59 06:59 Output Total 1125 Balance -1125 - Medications Medications: Current Medications Atorvastatin Calcium (Lipitor) 10 mg PO HS [facility] Last Admin: 12/27/16 22:33 Dose: 10 mg Diltiazem HCl (Cardizem Cd) 240 mg PO DAILY [facility] Enoxaparin Sodium (Lovenox) 70 mg SC Q12H [facility] PRN Reason: Protocol Last Admin: 12/27/16 22:33 Dose: 70 mg Furosemide (Lasix) 20 mg IVP Q12 [facility] Last Admin: 12/27/16 22:35 Dose: 20 mg Metoprolol Tartrate (Lopressor) 25 mg PO BID [facility] Last Admin: 12/27/16 17:25 Dose: 25 mg Oxycodone/Acetaminophen (Percocet 5/325 Mg Tab) 1 tab PO STAT STA Stop: 12/28/16 05:28 Paroxetine HCl (Paxil) 20 mg PO HS [facility] Last Admin: 12/27/16 22:33 Dose: 20 mg Zolpidem Tartrate (Ambien) 5 mg PO HS PRN; Protocol PRN Reason: Insomnia Last Admin: 12/26/16 22:09 Dose: 5 mg - Labs Labs: 12/27/16 07:45 12/27/16 07:45 PT 11.5 Seconds (9.9-11.8) 12/25/16 12:15 INR 1.06 (0.93-1.08) 12/25/16 12:15 APTT 26.4 Seconds (23.7-30.8) 12/25/16 12:15 - Constitutional Appears: Well, No Acute Distress - Head Exam Head Exam: ATRAUMATIC, NORMAL INSPECTION, NORMOCEPHALIC - Eye Exam Eye Exam: Normal appearance - ENT Exam ENT Exam: Normal External Ear Exam - Neck Exam Neck Exam: Normal Inspection - Respiratory Exam Respiratory Exam: NORMAL BREATHING PATTERN - Cardiovascular Exam Cardiovascular Exam: absent: JVD - GI/Abdominal Exam GI & Abdominal Exam: absent: Distended - Rectal Exam Rectal Exam: Deferred - Extremities Exam Extremities Exam: Normal Inspection Additional comments: Both shoulders no deformity, no swelling, ROM restricted secondary to pain. - Back Exam Back Exam: NORMAL INSPECTION - Neurological Exam Neurological Exam: Alert - Psychiatric Exam Psychiatric exam: Normal Affect, Normal Mood - Skin Skin Exam: Normal Color Assessment and Plan - Assessment and Plan (Free Text) Assessment: A/P:Osteoarthritis B/L shoulder. HTN. HLD. Percocet 5/325 PO STAT. Continue meds.
[2016-12-28] MEDS: diltiaZEM 240 mg/24 Hours CD Cap PO SCH (09:14)
[2016-12-28] MEDS ORDERED: Oxycodone/Acetaminophen 5/325 mg Tab PO PRN (09:15)
[2016-12-28] MEDS ORDERED: Aspirin 325 mg EC Tablets PO SCH (10:00)
[2016-12-28] MEDS: Lidocaine 5% Patch TD SCH (10:01)
--- NOTE | 2016-12-28 10:16 | PN ---
DATE: 12/28/2016 REASON FOR CONSULTATION AND FOLLOWUP: AFib, rapid ventricular rate, is well controlled, abnormal str ess test. BRIEF CLINICAL HISTORY: A 81-year-old female with a past medical history significant for hypertensio n, chronic arrhythmia, possibly APCs. Admitted with new onset of atrial fibrillation possibly. Afte r talking to the family, came to the conclusion that probably AFib is new and talking to Dr. Pacheco , but she has arrhythmia from the past. Admitted with AFib with rapid ventricular rate, underwent a stress test that was abnormal, so patient is scheduled for cardiac catheterization today at 3 p.m. C omplaining of right shoulder pain. She has always arthritis, but she pulled her muscles while trying to shift herself, so is in pain. Daughter is at the bedside, named . I explained the patient' s condition and procedure for cardiac catheterization at 3 p.m. They agreed. We will proceed for ca rdiac catheterization. PHYSICAL EXAMINATION: VITAL SIGNS: Temperature afebrile, heart rate 70, blood pressure 130/80. HEENT: PERRLA. Extraocular muscles intact. NECK: Supple. No carotid bruit, no thyromegaly. CHEST: Clear to auscultation. HEART: S1, S2 irregular. ABDOMEN: Soft. EXTREMITIES: Clubbing, cyanosis negative. BLOOD WORKUP: Pending as computer is very slow today, unable to retrieve whole blood. Now shows WBC 8, hemoglobin 10.3, hematocrit 32.9, platelet count 468. Coagulation profile: INR 1.06. Chemistry shows sodium 140, potassium 3.8, chloride of 103, carbon dioxide 26, anion gap of 15, BUN 1.5 as of yesterday. A stress test read as suspicious for ischemia, but cannot 100% rule out changing position of the j[address]. Again, computer is very slow and is not retrieving the result of the stress test completely, is coming line by line. In the morning I saw, which I recall, that ejection fraction 40% and with fixed defect and partially reversible, suggestive of ischemia. The patient had also echocardiography done that showed ejection fraction in the range of 35%-40%, 45%, trace aortic regurgitation, mild mitral regurgitation, RV systolic pressure 45. RECOMMENDATION: We will hold Lovenox. Keep n.p.o. after the breakfast. Keep cardiac catheterizatio n at 3 p.m. We will load with Plavix. Further recommendation after the cardiac catheterization. We will follow with you. Thank you, Dr. Pacheco, for providing us the opportunity in taking care of the patient. We will try to reach you because patient is complaining of right shoulder pain, so patient can get the benefit f rom orthopedic evaluation, possibly intra-articular injection. Jimmy Garcia MD cc: [phone] TT: 12/28/2016 10:16:10 Confirmation # [id number] Dictation # [id number] en
--- NOTE | 2016-12-28 10:36 | PN ---
DATE: 12/28/2016 SUBJECTIVE: The patient was admitted for new onset atrial fibrillation with rapid ventricular response. She is doing better. She is currently on Cardizem p.o. She continues with atrial fibrillation with controlled rate. She denies any chest pain. The patient, however, developed sudden onset of right anterior shoulder pain after moved quickly in her bed. Pain is radiating down her arm. The patient has difficulty of moving her arm over head. PHYSICAL EXAMINATION: VITAL SIGNS: Stable. Temperature 98.3, pulse is 78, blood pressure 141/74, respiratory rate 18. GENERAL: She is comfortable in bed, alert, awake, oriented. HEENT: Head is normocephalic, atraumatic. Oral mucosa is moist. NECK: Supple. LUNGS: Clear to auscultation. HEART: With irregular rhythm, rate of 80 per minute. ABDOMEN: Soft, nontender, nondistended. EXTREMITIES: Significant for severe tenderness on palpation of the anterior shoulder joint, diminished rotation and abduction. Lower extremities with no edema. LABORATORY DATA: The patient had abnormal stress test yesterday. ASSESSMENT: 1. Atrial fibrillation with controlled heart rate. 2. Abnormal stress test with inferior ischemia. 3. New onset of right shoulder pain due to shoulder sprain. 4. Urinary tract infection. 5. Hypertension. PLAN OF TREATMENT: Case was discussed with environmental solutions engineer. The patient is scheduled for a cardiac catheterization this afternoon. We will continue Lovenox, Plavix, aspirin, Cardizem for rate control. The patient's right shoulder pain will be evaluated by orthopedist, local treatment with ice and pain medication. Follow up urine culture. Will need antibiotic before discharge home. Karly Barron MD cc: [phone] TT: 12/28/2016 10:35:16 Confirmation # [id number] Dictation # [id number] tn MTDD
[2016-12-28] MEDS ORDERED: Meropenem 1g/NS 100mL IVPB 100 ML IVPB SCH ×3 (12:35→14:00)
--- NOTE | 2016-12-28 13:51 | RAD ---
PROCEDURE: Radiographs of the Right Shoulder HISTORY: Right anterior shoulder pain COMPARISON: 06/02/2012 FINDINGS: BONES: Bone alignment is normal. There is no evidence of acute fracture or bone destruction. JOINTS: There is severe degenerative osteoarthrosis in the acromioclavicular joint, progressed since the prior examination and moderate degenerative osteoarthrosis in the glenohumeral joint. SOFT TISSUES: Normal. OTHER FINDINGS: None. IMPRESSION: No acute fracture or bone destruction. Severe degenerative osteoarthrosis in the acromioclavicular joint and moderate degenerative osteoarthrosis in the glenohumeral joint.
[2016-12-28] MEDS ORDERED: Lidocaine 2% Inj (20ml) ONE (14:32)
[2016-12-28] MEDS ORDERED: Nitroglycerin 50mg in D5W 250 ML IV ONE (15:11)
[2016-12-28] MEDS ORDERED: Midazolam 2 MG/2 ML VIAL ONE (15:15)
[2016-12-28] MEDS ORDERED: Digoxin 500 mcg/2ml (0.5 mg/2ml) Inj ONE (15:47)
[2016-12-28] MEDS ORDERED: Metoprolol 1 mg/ml Inj IVP ONE (15:59)
[2016-12-28] MEDS ORDERED: Sodium Chloride 0.9% 1,000 ML IV SCH (16:15)
[2016-12-28 16:16] VITALS: PULSE 115
[2016-12-28] MEDS ORDERED: Bupivacaine 0.5% Inj(30mL) IJ ONE (16:30)
[2016-12-28] MEDS ORDERED: MethylPREDNISolone Depo 40 mg/ml Inj IM ONE (16:30)
--- NOTE | 2016-12-28 17:01 | CARD ---
APPROVED REPORT Procedure(s) performed: Left Heart Catheterization HISTORY The patient is a 81 year-old female with a history of : hypertension , dyslipidemia , Admitted with New onset of A Fib and abnormal stress test, suggestive of Ischemia. INDICATION The indication(s) include : positive stress test, arrhythmia. CASE TECHNIQUE The patient was brought urgently to the Cardiac Catheterization Laboratory in a fasting state and was prepped and draped in a sterile manner. The right femoral groin was infiltrated with 2% Lidocaine subcutaneous anesthesia. A 6 Fr x 11 cm Cori sheath was inserted into the right femoral artery without difficulty. Coronary angiography was performed using coronary diagnostic catheters. The left coronary system was accessed and visualized with a Diagnostic , JL4.0,5FR catheter. The right coronary system was accessed and visualized with a Diagnostic ,JR4.0,5FR catheter. The left ventricle was accessed and visualized with a pig tail catheter. Left ventriculogram was performed in HWANG projection. The patient tolerated the procedure well and there were no complications associated with the procedure. Vessel Analysis The patient's coronary anatomy is right dominant. The left main coronary artery is a large size vessel without significant stenosis. The left main bifurcates to the left anterior descending and circumflex. The left anterior descending artery is a medium size vessel with diffuse calcification noted throughout this vessel and without significant stenosis. very tortous vessel There is a 50-55% stenosis in the mid segment. The first diagonal branch is a small size vessel with diffuse calcification noted throughout this vessel and without significant stenosis. The second diagonal branch is a small size vessel with diffuse calcification noted throughout this vessel and without significant stenosis. The circumflex artery is a medium size vessel without significant stenosis. The first obtuse marginal branch is a medium size vessel without significant stenosis. Very tortous vessel The second obtuse marginal branch is a medium size vessel without significant stenosis. Very tortous vessel. The right coronary artery is a large size vessel with diffuse calcification noted throughout this vessel and without significant stenosis. The right posterior descending artery is a large size vessel without significant stenosis. The right posterolateral branch is a medium size vessel without significant stenosis. Left Ventricle The left ventricle is mildly enlarged in size with mild to moderately decreased contractility. Non-Ischemic cardiomyopathy. The left ventricular ejection fraction is estimated to be 35-40%. The left ventricular end diastolic pressure is 14 mmHg. 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 Mild to Moderately decreased LV Fx. EF-35-40% ( A Fib).EDP-14 mmof Hg. A Fib UTI Recommendations Aggressive Medical TherapyCardiac Risk Reduction Program Weight Loss Reduction Program Start Eliquis Continue Cardiazem, Metoprolol PIEDAD and Cardioversion on Saturday If pt stays otherwiseas out PT. Cc; DR. Pacheco/ Bernabe.
--- NOTE | 2016-12-28 17:48 | CP.PCM.CON ---
History of Present Illness - History of Present Illness History of Present Illness: 81 year old female with PMH of HTN, dyslipidemia, obesity with BMI 31, history of uterine cancer S/P hysterectomy, S/P cholecystectomy, osteoarthritis, GERD, history of depression, history of E. coli bacteremia from UTI was brought in to [facility] because of tachycardia. She was found to have atrial fibrillation and is currently being treated for this. About a week prior to this admission, she was at [facility] and was being treated for UTI with Ciprofloxacin and has finished the course. At that time she had urinary frequency and dysuria. Workman was placed then and has had the Workman since then, and it has been 10 days. Urine cx were taken on admission here which is now showing ESBL Klebsiella and has not been on antibiotics for it. Infectious diseases consult is requested to further evaluate and manage. Currently the patient afebrile and has been afebrile since admission (she had fever when was at [facility] [place] with the [place]TI). She denies suprapubic pain, no flank pain, no nausea or vomiting, no chest pain currently, no SOB, no headache or dizziness, no diarrhea, no cough or colds. Review of Systems - Review of Systems All systems: reviewed and no additional remarkable complaints except (as per HPI ) Past Patient History - Past Medical History & Family History Past Medical History?: Yes Past Family History: Reviewed and not pertinent - Past Social History Smoking Status: Never Smoked Alcohol: None Drugs: Denies - CARDIAC Hx Hypertension: Yes - NEUROLOGICAL Hx Dizziness: No - RENAL Hx Chronic Kidney Disease: Yes (ATONIC BLADDER,) - HEMATOLOGICAL/ONCOLOGICAL Hx Cancer: Yes (uterine 2003 in had radiation) - MUSCULOSKELETAL/RHEUMATOLOGICAL Hx Falls: No - GASTROINTESTINAL Hx Gastrointestinal Disorders: Yes (chronic diarrhea x 2 months on and off- IRRITABLE BOWEL SYNDROME) Hx Gastroesophageal Reflux: Yes - GENITOURINARY/GYNECOLOGICAL Hx Genitourinary Disorders: (urgency/frequency/HESITANCY-ATONIC BLADDER) Other/Comment: CERVICAL CA WITH RADIATION - PSYCHIATRIC Hx Psychophysiologic Disorder: Yes (INSOMNIA) Hx Anxiety: Yes Hx Depression: Yes - SURGICAL HISTORY Hx Appendectomy: Yes (2 weeks ago) Hx Cholecystectomy: Yes Hx Hysterectomy: Yes Other/Comment: pt has uterine ca with radiation in 2003 and had bladder lift for urinary problems post radiation - ANESTHESIA Hx Anesthesia Reactions: No Hx Malignant Hyperthermia: No Meds Allergies/Adverse Reactions: Allergies Allergy/AdvReac Type Severity Reaction Status Date / Time No Known Allergies Allergy Verified 12/25/16 11:48 - Medications Medications: Current Medications Aspirin (Ecotrin) 325 mg PO DAILY [facility] Last Admin: 12/28/16 09:11 Dose: 325 mg Atorvastatin Calcium (Lipitor) 10 mg PO HS [facility] Last Admin: 12/27/16 22:33 Dose: 10 mg Diltiazem HCl (Cardizem Cd) 240 mg PO DAILY [facility] Last Admin: 12/28/16 09:14 Dose: 240 mg Furosemide (Lasix) 20 mg IVP Q12 [facility] Last Admin: 12/28/16 09:14 Dose: 20 mg Meropenem 1g/NS 100mL IVPB (Meropenem 1g/Ns 100ml Ivpb) 100 mls @ 100 mls/hr IVPB Q8 [facility] PRN Reason: Protocol Stop: 01/04/17 12:36 Lidocaine (Lidoderm) 1 ea TD DAILY [facility] Last Admin: 12/28/16 10:01 Dose: 1 ea Metoprolol Tartrate (Lopressor) 25 mg PO BID [facility] Last Admin: 12/28/16 09:14 Dose: 25 mg Oxycodone/Acetaminophen (Percocet 5/325 Mg Tab) 1 tab PO Q6H PRN PRN Reason: Pain, moderate (4-7) Stop: 12/31/16 09:16 Paroxetine HCl (Paxil) 20 mg PO HS [facility] Last Admin: 12/27/16 22:33 Dose: 20 mg Zolpidem Tartrate (Ambien) 5 mg PO HS PRN; Protocol PRN Reason: Insomnia Last Admin: 12/26/16 22:09 Dose: 5 mg Physical Exam - Constitutional Appears: Non-toxic, No Acute Distress - Head Exam Head Exam: NORMAL INSPECTION - ENT Exam ENT Exam: Mucous Membranes Moist - Neck Exam Neck exam: Negative for: Lymphadenopathy, Meningismus - Respiratory Exam Respiratory Exam: Decreased Breath Sounds - Cardiovascular Exam Cardiovascular Exam: +S1, +S2 - GI/Abdominal Exam GI & Abdominal Exam: Soft. absent: Tenderness Results - Vital Signs Recent Vital Signs: Last Vital Signs Temp 98.3 F 12/28/16 05:52 Pulse 68 12/28/16 09:14 Resp 18 12/28/16 05:52 BP 141/74 12/28/16 09:14 Pulse Ox 96 12/28/16 05:52 - Labs Result Diagrams: 12/27/16 07:45 12/27/16 07:45 Assessment & Plan - Assessment and Plan (Free Text) Plan: Assessment ESBL Klebsiella in urine culture in a patient who has a Workman catheter from previous admission - asymptomatic bacteriuria (patient does not and did not have fever, no suprapubic tenderness, no CVA tenderness, no leukocytosis, urinalysis does not show pyuria) Atrial fibrillation, new onset history of E. coli bacteremia, urine as the source HTN dyslipidemia obesity with BMI 31 history of uterine cancer S/P hysterectomy S/P cholecystectomy osteoarthritis GERD history of depression Plan Discussed with Dr. Edge, who is currently covering Dr. [place] - we have agreed that the Workman catheter may be removed Will repeat urine culture and urinalysis after the Workman is removed; will monitor the patient off antibiotics - discussed plan with family members Keep patient on contact isolation because of the ESBL Klebsiella colonization will follow clinically
--- NOTE | 2016-12-28 18:11 | CON ---
DATE: 12/28/2016 A 81-year-old female with complaint of right shoulder pain. It is present for several months prior t o this admission for medical reasons, and then now she was trying to move in the stretcher and felt a pop in her right shoulder. It is suspicious for a rotator cuff tear. She was having pain before, n ow she just exacerbated by putting some stress on the shoulder when trying to move up in bed. The sh ouanika has an effusion, but by coincidence she just today had a cardiac catheterization and has to la y flat in bed with pressure on her groin where the catheter went in. So the nursing staff said it is not prudent to give a cortisone injection today, so I will wait for tomorrow, reevaluate her again a s the x-ray do show subacromial impingement, acromioclavicular joint osteoarthritis and then effusion of the right shoulder. So I will try to aspirate the shoulder tomorrow and give her cortisone for s ome relief of pain knowing that she is not a surgical candidate for rotator cuff repair, but will may be make her feel better with a Depo-Medrol and Marcaine injection tomorrow. FINAL DIAGNOSES: Chronic right shoulder pain with acromioclavicular joint arthritis, subacromial imp ingement and a suggestion of a rotator cuff tear. Grant Bains DO cc: [phone] TT: 12/28/2016 18:10:25 Confirmation # [id number] Dictation # [id number] mn
[2016-12-29 07:06] LABS: HEMATOCRIT 33.8 % (36.0-48.0); MEAN CELL VOLUME 84.9 fL (80.0-105.0); MEAN CORPUSCULAR HEMOGLOBIN 27.1 pg (25.0-35.0); MEAN PLATELET VOLUME 10.3 fl (7.0-11.0); RED CELL DISTRIBUTION WIDTH 14.5 % (11.5-14.5); WHITE BLOOD COUNT 10.6 10^3/ul (4.5-11.0)
[2016-12-29 07:16] LABS: ALB/GLOB RATIO 0.9 (1.1-1.8); BILIRUBIN,TOTAL 0.5 mg/dL (0.2-1.3); CALCIUM 9.1 mg/dL (8.4-10.5); POTASSIUM 3.9 mmol/L (3.6-5.0); TOTAL PROTEIN 7.5 g/dL (5.8-8.3)
--- NOTE | 2016-12-29 09:24 | PROCN ---
DATE: 12/29/2016 A 89-cdih-irx-female with effusion of the right shoulder after she heard a pop in her shoulder while she was trying to lift herself up in bed a day ago, just before cardiac catheterization. I was unabl e to do this yesterday because of the bed rest that she was on. Today, I cleaned up the right shoulder, still had an effusion. X-rays show osteoarthritis AC joint a nd subacromial spurs with a past history of rotator cuff. So we aspirated with an [address] I used antiseptic to clean the skin with alcohol and Betadine and aspirated 10 mL of blood non-cl otting, so it was mixed with synovial fluid. We sent it to the lab for culture and injected her with Depo-Medrol and Marcaine for the inflammation. This hopefully will help the pain and the swelling. It did not look like infection so we did not send it for the other cell count or crystals and she banks s no history of infection. So we will see how she responds to the Depo-Medrol injection of her arthritic shoulder with rotator c uff tear. This could be rupture of some scar tissue that she has had since she has been having shoul harpreet pain for several years. Grant Bains DO cc: [phone] TT: 12/29/2016 09:23:45 Confirmation # [id number] Dictation # [id number] rakel
--- NOTE | 2016-12-29 09:50 | PN ---
DATE: 12/29/2016 The patient is in bed in no acute distress, nontoxic. PHYSICAL EXAMINATION: VITAL SIGNS: Temperature is 98, blood pressure is 140/70, respiratory rate of 18. HEENT: Unremarkable. NECK: Supple. LUNGS: Have decreased breath sounds. HEART: Normal S1, S2. ABDOMEN: Soft. LABORATORY EXAMINATION: Reveals a white count of 10,000, hemoglobin of 10, platelets of 472. Chemis tries reveal the BUN of 19, creatinine of 1.1. Urinalysis is noted. Urine culture has Klebsiella pn eumoniae in the urine. It is ESBL. Dr. Bains's note is reviewed and he is awaiting her respo nse on Depo-Medrol. ASSESSMENT AND PLAN: A 81-year-old female with a history of hypertension, dyslipidemia, obesity, bod y mass index of 31, history of uterine cancer, history of hysterectomy, cholecystectomy, osteoarthrit is, gastroesophageal reflux disease, history of depression, history of Escherichia coli bacteremia fr om an Escherichia coli urinary tract infection, admitted on this admission with extended-spectrum bet a-lactamase Klebsiella in the urine culture in a patient who has a Workman catheter from a previous adm ission. She has had asymptomatic bacteriuria. No fevers. No suprapubic tenderness. No costoverteb ral angle tenderness. No leukocytosis. She is complaining this morning of the right shoulder pain. We will keep the patient on extended spectrum beta-lactamase isolation, off of antibiotics and we wi ll follow the patient's right shoulder pain, response to treatment. X-ray of the right shoulder is n oted. Puneet David MD cc: [phone] TT: 12/29/2016 09:50:15 Confirmation # [id number] Dictation # [id number] tn
[2016-12-29] MEDS: diltiaZEM 240 mg/24 Hours CD Cap PO SCH (10:54)
[2016-12-29] MEDS: Lidocaine 5% Patch TD SCH (10:55)
--- NOTE | 2016-12-29 17:52 | CP.PCM.PN ---
Subjective - Date & Time of Evaluation Date of Evaluation: 12/29/16 Time of Evaluation: 17:48 - Subjective Subjective: responded to [facility] pt with hx of sepsis a-fib flutter ,was in the bathroom helped by family member and she tried to put away the urine and fell on the ground was c/o dizziness no loc ,did not hit the head. Objective - Vital Signs/Intake and Output Vital Signs (last 24 hours): Temp Pulse Resp BP Pulse Ox 97.1 F L 70 20 146/84 95 12/29/16 12:00 12/29/16 12:00 12/29/16 12:00 12/29/16 12:00 12/29/16 06:00 Intake and Output: 12/29/16 12/29/16 06:59 18:59 Intake Total 390 Output Total 1200 Balance -810 - Medications Medications: Current Medications Apixaban (Eliquis) 5 mg PO BID [facility] PRN Reason: Protocol Atorvastatin Calcium (Lipitor) 10 mg PO HS [facility] Last Admin: 12/28/16 21:47 Dose: 10 mg Diltiazem HCl (Cardizem Cd) 240 mg PO DAILY [facility] Last Admin: 12/29/16 10:54 Dose: 240 mg Lidocaine (Lidoderm) 1 ea TD DAILY [facility] Last Admin: 12/29/16 10:55 Dose: 1 ea Metoprolol Tartrate (Lopressor) 25 mg PO BID [facility] Last Admin: 12/29/16 10:54 Dose: 25 mg Oxycodone/Acetaminophen (Percocet 5/325 Mg Tab) 1 tab PO Q6H PRN PRN Reason: Pain, moderate (4-7) Stop: 12/31/16 09:16 Last Admin: 12/28/16 18:57 Dose: 1 tab Paroxetine HCl (Paxil) 20 mg PO HS [facility] Last Admin: 12/28/16 21:47 Dose: 20 mg Verapamil HCl (Verapamil Inj) 2.5 mg IVP Q6H PRN PRN Reason: for Heart rate >130 Zolpidem Tartrate (Ambien) 5 mg PO HS PRN; Protocol PRN Reason: Insomnia Last Admin: 12/28/16 21:47 Dose: 5 mg - Labs Labs: 12/29/16 06:15 12/29/16 06:15 PT 11.5 Seconds (9.9-11.8) 12/25/16 12:15 INR 1.06 (0.93-1.08) 12/25/16 12:15 APTT 26.4 Seconds (23.7-30.8) 12/25/16 12:15 - Constitutional Appears: No Acute Distress - Eye Exam Pupil Exam: PERRL - ENT Exam ENT Exam: Mucous Membranes Moist - Neck Exam Neck Exam: Full ROM - Respiratory Exam Respiratory Exam: Clear to Ausculation Bilateral, NORMAL BREATHING PATTERN - GI/Abdominal Exam GI & Abdominal Exam: Soft, Normal Bowel Sounds - Rectal Exam Rectal Exam: Deferred - Neurological Exam Neurological Exam: Alert, Awake, CN II-XII Intact, Oriented x3 - Psychiatric Exam Psychiatric exam: Normal Affect - Skin Skin Exam: Dry, Warm Assessment and Plan - Assessment and Plan (Free Text) Assessment: s/p fall no injury noted. Plan: fall precautions.
[2016-12-29 21:22] LABS: URINE BILIRUBIN NEGATIVE (NEGATIVE); URINE BLOOD LARGE (NEGATIVE); URINE GLUCOSE (UA) NEGATIVE (NEGATIVE); URINE KETONE NEGATIVE (NEGATIVE); URINE LEUKOCYTE ESTERASE MODERATE Leu/uL (NEGATIVE); URINE PROTEIN 100 mg/dL (<30 mg/dL); URINE UROBILINOGEN 0.2 E.U./dL (<1 E.U./dL)
[2016-12-29 21:24] LABS: URINE COLOR YELLOW (YELLOW)
[2016-12-29 21:25] LABS: URINE APPEARANCE SL CLOUDY (CLEAR)
[2016-12-29 21:35] LABS: URINE RBC 0 - 2 /hpf (0-2); URINE WBC 25 - 30 /hpf (0-6)
[2016-12-29 21:36] LABS: URINE BACTERIA OCC (NEG)
--- NOTE | 2016-12-30 01:00 | PN ---
DATE: 12/30/2016 The patient was evaluated in telemetry. The patient is feeling much better. She was admitted for atrial fibrillation with rapid ventricular response. Her rhythm and rates were improved with IV Cardizem. Currently, patient is on oral Cardizem. She had cardiac catheterization yesterday, which was negative for significant coronary artery occlusions. The patient had a urine culture done during hospitalization, which was positive for Klebsiella pneumoniae, highly resistant, She was evaluated by infectious disease specialist. Antibiotic was on hold and patient's catheter was removed yesterday and today we are for monitoring her voiding. She is feeling better. She is voiding urine sufficiently. She fell this afternoon when in the bathroom with no significant injuries. PHYSICAL EXAMINATION: VITAL SIGNS: Today her vitals are stable. Temperature is 98, pulse ranging between 90 to 130, irregular; blood pressure 146/84 and respiratory rate 20. GENERAL: She is comfortable, alert, awake and oriented. HEENT: Head is normocephalic and atraumatic. Oral mucosa is moist. NECK: Supple. LUNGS: Clear to auscultation. MUSCULOSKELETAL: There is tenderness of the right anterior shoulder and decrease of motion. HEART: With irregular rhythm, rate 100 per minute. ABDOMEN: Soft, nontender and nondistended. EXTREMITIES: With no edema. HER DIAGNOSTIC TESTS THIS MORNING: Showed stable CBC with hemoglobin 10.8 and hematocrit 33.8. Chemistry was normal. Again, cardiac catheterization yesterday revealed mild coronary artery disease with diminished ejection fraction. ASSESSMENT: 1. Atrial fibrillation with improved ventricular rate, but unstable. 2. Mild coronary artery disease. 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 4. Hypertension. 5. Right shoulder tendinitis. PLAN OF TREATMENT: Will monitor the patient today after fall. Will monitor voiding. The patient will be maintained on Cardizem 240 mg and atenolol and will continue pain management for right shoulder pain. Karly Barron MD cc: [phone] TT: 12/30/2016 00:59:24 Confirmation # [id number] Dictation # [id number] [facility]
[2016-12-30 06:17] VITALS: O2SAT 97
[2016-12-30 06:43] LABS: HEMATOCRIT 31.4 % (36.0-48.0); MEAN CELL VOLUME 83.7 fL (80.0-105.0); MEAN CORPUSCULAR HEMOGLOBIN 27.2 pg (25.0-35.0); MEAN CORPUSCULAR HGB CONC 32.5 g/dl (31.0-37.0); MEAN PLATELET VOLUME 9.9 fl (7.0-11.0); RED CELL DISTRIBUTION WIDTH 14.4 % (11.5-14.5); WHITE BLOOD COUNT 13.1 10^3/ul (4.5-11.0)
[2016-12-30 07:02] LABS: ALB/GLOB RATIO 0.9 (1.1-1.8); BILIRUBIN,TOTAL 0.6 mg/dL (0.2-1.3); CALCIUM 9.2 mg/dL (8.4-10.5); POTASSIUM 4.1 mmol/L (3.6-5.0); TOTAL PROTEIN 7.1 g/dL (5.8-8.3)
[2016-12-30 07:13] LABS: T4 8.4 ug/dL (5.5-11.0)
[2016-12-30 07:27] LABS: THYROID STIMULATING HORMONE 0.37 mIU/mL (0.46-4.68)
--- NOTE | 2016-12-30 09:27 | PN ---
DATE: 12/30/2016 UPDATED REPORT Room 267, bed 2. She is a 1-day post-aspiration of hemarthrosis of her right shoulder with a specimen sent for culture . Culture, so far, is no growth, and the patient feels better after the injection of Marcaine and De po-Medrol. I feel as though it is a traumatic hemarthrosis from a tearing of some of the scar tissue of her underlying osteoarthritis of the AC joint and subacromial impingement, and a small rotator cu ff tear. The patient has a good prognosis as far as she does not overdo the lifting or use of the right should er. I will follow her as necessary. Grant Bains DO cc: [id number] TT: 12/30/2016 09:26:50 Confirmation # [id number] Dictation # [id number] rakel
--- NOTE | 2016-12-30 09:35 | PN ---
DATE: 12/30/2016 The patient is in bed, in no acute distress. No fevers and chills. PHYSICAL EXAMINATION: VITAL SIGNS: Temperature is 98, blood pressure is 150/90, respiratory rate of 18, heart rate of 130. HEENT: Unremarkable. NECK: Supple. LUNGS: Have decreased breath sounds. HEART: Normal S1, S2. ABDOMEN: Soft, nontender. No organomegaly, no rebound, no guarding. LABORATORY EXAMINATION: Reveals the patient's white count is up to 13,100. The patient is on Depo-Medrol 80 mg once given by Dr. Bains. The patient is also on Paxil. T he patient's son is at the bedside, who states that patient's shoulder is much improved. Dr. Jennifer stratton's note from this morning is reviewed. Dr. Handley's note is reviewed from yesterday. ASSESSMENT AND PLAN: A 81-year-old female with a history of hypertension, dyslipidemia, obesity with a body mass index of 31, history of uterine cancer, history of hysterectomy, cholecystectomy, osteoa rthritis, gastroesophageal reflux disease, history of depression, history of Escherichia coli bactere reyes and Escherichia coli urinary tract infection. Admitted with an extended-spectrum beta-lactamase Klebsiella in the urine in asymptomatic patient with asymptomatic bacteriuria. No fevers, no chills, no suprapubic tenderness. She is complaining of having right shoulder pain, which seems to be respo nding at this point. Leukocytosis is probably secondary to the steroid use. Currently off of antibi otics, afebrile. The patient is at risk for developing nosocomial infections. Case discussed with Oliver Bains in addition to patient's son. Puneet David MD cc: [phone] TT: 12/30/2016 09:34:50 Confirmation # [id number] Dictation # [id number] en
[2016-12-30] MEDS: diltiaZEM 240 mg/24 Hours CD Cap PO SCH (09:56)
[2016-12-30] MEDS: Lidocaine 5% Patch TD SCH (09:57)
[2016-12-30 12:53] VITALS: BP 151/96; PULSE 46; RESP 19; TEMP 97.1
--- NOTE | 2016-12-30 14:04 | PN ---
DATE: 12/30/2016 The patient was admitted for new onset atrial fibrillation with rapid ventricular response. She was treated with IV Cardizem and her heart rate improved with treatment. The patient was switched to oral Cardizem-CD 240 mg daily. She developed right shoulder pain during hospitalization, treated with steroid injection. She is feeling much better this morning. The patient has history of atonic bladder. She came to hospital with Workman catheter. Her urine culture was repeated, grew resistant Klebsiella pneumoniae. Infectious disease specialist and urologist recommended removal of catheter and repeating a urine culture, which is still pending. The patient is feeling much better this morning. She has good appetite. The patient is ambulatory. PHYSICAL EXAMINATION: On discharge showed: VITAL SIGNS: Temperature 98.5, heart rate 99, irregular, blood pressure 156/96 and respiratory rate 18. GENERAL: The patient is comfortable, sitting in chair, alert, awake, oriented. HEENT: Head is normocephalic, atraumatic. Oral mucosa is moist. NECK: Supple. LUNGS: Clear to auscultation. HEART: With irregular rhythm, rate of 90 per minute. ABDOMEN: Soft, nontender, nondistended. EXTREMITIES: With no edema. There is persistent tenderness of the right anterior shoulder and limitation of the movement. DIAGNOSTIC TESTS: Today, CBC with WBC 13.1, hemoglobin 10.2, hematocrit 31.4, platelet count 416. Chemistry with normal electrolytes. Her BUN is 27, creatinine 1.1. Her repeated TSH improved. It is 0.37. ASSESSMENT: 1. Atrial fibrillation with controlled rate. 2. Mild coronary artery disease. 3. Hypertension. 4. Atonic bladder with Klebsiella pneumoniae colonization. The patient is asymptomatic. 5. Right shoulder osteoarthritis. PLAN OF TREATMENT: The patient will be discharged home today. The patient will be maintained on calcium channel allyson, Cardizem-CD 240 mg once a day and beta allyson, metoprolol tartrate 25 mg twice a day. The patient will be also maintained on Eliquis 5 mg twice a day for anticoagulation. The patient was advised to follow up with exhibitor sales in 2 weeks. We will consider outpatient PIEDAD and cardioversion if suitable as per exhibitor sales. The patient will be maintained on her chronic medications, zolpidem 5 mg, enalapril 10 mg at night and Paxil 40 mg daily. She will continue physical therapy at home to improve her right shoulder motion. The patient also was advised to follow up with urologist for her chronic bladder problems. We will follow up on repeated urine culture. The patient does not need any antibiotic at present time as per infectious disease opinion. Karly Barron MD cc: [phone] TT: 12/30/2016 14:04:28 Confirmation # [id number] Dictation # [id number] en MTDD
== END 2016-12-30 14:27 | disposition home or self-care (01) | DRG 287 ==
LOC: ED 11:32 → ERH 13:36 → 2RNO 16:54
PROVIDERS: ADMIT Family Medicine; ATTEND Family Medicine
PROC: 4A023N7 Measurement of Cardiac Sampling and Pressure, Left Heart, Percutaneous Approach (ICD-10-PCS; principal; 2016-12-28)
PROC: B2011ZZ Plain Radiography of Multiple Coronary Arteries using Low Osmolar Contrast (ICD-10-PCS; 2016-12-28)
PROC: B2051ZZ Plain Radiography of Left Heart using Low Osmolar Contrast (ICD-10-PCS; 2016-12-28)
PROC: 0R9J3ZX Drainage of Right Shoulder Joint, Percutaneous Approach, Diagnostic (ICD-10-PCS; 2016-12-29)
DX: I48.2 Chronic atrial fibrillation (principal); N39.0 Urinary tract infection, site not specified; E83.42 Hypomagnesemia; D64.9 Anemia, unspecified; I48.91 Unspecified atrial fibrillation; I10 Essential (primary) hypertension; E78.5 Hyperlipidemia, unspecified; M16.10 Unilateral primary osteoarthritis, unspecified hip; M81.0 Age-related osteoporosis without current pathological fracture; I25.10 Atherosclerotic heart disease of native coronary artery without angina pectoris; M19.012 Primary osteoarthritis, left shoulder; M19.011 Primary osteoarthritis, right shoulder; I08.3 Combined rheumatic disorders of mitral, aortic and tricuspid valves; E66.8 Other obesity; M75.101 Unspecified rotator cuff tear or rupture of right shoulder, not specified as traumatic; B96.20 Unspecified Escherichia coli [E. coli] as the cause of diseases classified elsewhere; Z68.31 Body mass index [BMI] 31.0-31.9, adult; Z85.41 Personal history of malignant neoplasm of cervix uteri

== ENCOUNTER 2017-01-09 11:05 | Inpatient (IN) | payer MEDICARE, OTHER ==
[2017-01-09] MEDS ORDERED: Sodium Chloride 0.9% 1,000 ML IV STA (11:45)
--- NOTE | 2017-01-09 11:52 | ED PDOC ---
Arrival/HPI - General Chief Complaint: Fever Time Seen by Provider: 01/09/17 11:20 Historian: Family EM Caveat: Language Barrier (family function as disaster or damage control specialist as per patient request) - History of Present Illness Narrative History of Present Illness (Text): 01/09/17 11:41 A 81 year old female, whose past medical history includes hypertension, hyperlipidemia, previous blood infection, atrial fibrillation and multiple UTI's , presents to the emergency department complaining of a fever of 102 since yesterday afternoon. Patient last took a Tylenol at 0300. Family called that patient PMD yesterday who states to bring the patient to the emergency department for further evaluation. Patient does have right shoulder pain due to a recent injection but denies any cough, chest pain, shortness of breath, headache, abdominal pain, nausea, vomiting, or other complaints at this time. HPI obtain via family due to language barrier. PMD: Dr. Pacheco Urologist: Dr. [place] Time/Duration: 24 hours Symptom Onset: Sudden Symptom Course: Unchanged Quality: Other Activities at Onset: Rest Context: Home Past Medical History - Provider Review Nursing Documentation Reviewed: Yes - Infectious Disease Hx of Infectious Diseases: None - Past Medical History Past Medical History: No Previous - Cardiac Hx Cardiac Arrhythmia: Yes Hx Hypertension: Yes - Neurological Hx Dizziness: No - Renal Hx Renal Disorder: Yes (ATONIC BLADDER,) - Hematological/Oncological Hx Cancer: Yes (uterine 2003 in had radiation) - Musculoskeletal/Rheumatological Hx Falls: No - Gastrointestinal Hx Gastrointestinal Disorders: Yes Hx Gastroesophageal Reflux: Yes - Genitourinary/Gynecological Hx Genitourinary Disorders: (urgency/frequency/HESITANCY-ATONIC BLADDER) Other/Comment: CERVICAL CA WITH RADIATION - Psychiatric Hx Psychophysiologic Disorder: Yes (INSOMNIA) Hx Anxiety: Yes Hx Depression: Yes Hx Substance Use: No - Past Surgical History Past Surgical History: No Previous - Surgical History Hx Appendectomy: Yes (2 weeks ago) Hx Cardiac Catheterization: Yes (Last week) Hx Cholecystectomy: Yes Hx Hysterectomy: Yes Other/Comment: pt has uterine ca with radiation in 2003 and had bladder lift for urinary problems post radiation - Anesthesia Hx Anesthesia Reactions: No Hx Malignant Hyperthermia: No - Suicidal Assessment Feels Threatened In Home Enviroment: No Family/Social History - Physician Review Nursing Documentation Reviewed: Yes Family/Social History: Unknown Family HX Smoking Status: Never Smoked Hx Alcohol Use: No Hx Substance Use: No Allergies/Home Meds Allergies/Adverse Reactions: Allergies No Known Allergies Allergy (Verified 01/09/17 11:22) Home Medications: Home Meds Medication Instructions Recorded Confirmed Paroxetine HCl [Paxil] 20 mg PO DAILY 12/16/14 12/25/16 Zolpidem [Ambien] 5 mg PO HS PRN 10/08/16 12/25/16 Review of Systems - Physician Review All systems were reviewed & negative as marked: Yes - Review of Systems Constitutional: Fatigue, Fevers Respiratory: absent: SOB, Cough Cardiovascular: absent: Chest Pain Gastrointestinal: absent: Abdominal Pain, Diarrhea, Nausea, Vomiting Genitourinary Female: absent: Dysuria Musculoskeletal: absent: Back Pain Neurological: absent: Headache Physical Exam Vital Signs Reviewed: Yes Vital Signs Temp Pulse Resp BP Pulse Ox 01/09/17 12:08 95 H 18 158/89 H 98 01/09/17 11:57 101.1 F H 01/09/17 11:28 101.1 F H 01/09/17 11:24 98.9 F 130 H 18 162/90 H 98 01/09/17 11:15 98.9 F 130 H 18 162/90 H 97 Temperature: Afebrile Blood Pressure: Hypertensive Pulse: Tachycardic Respiratory Rate: Normal Appearance: Positive for: Ill-Appearing (with shaking rigors) Pain Distress: None Mental Status: Positive for: Alert and Oriented X 3 - Systems Exam Head: Present: Atraumatic, Normocephalic Pupils: Present: PERRL Conjunctiva: Present: Normal Mouth: Present: Dry Pharnyx: Present: Normal. No: ERYTHEMA Neck: Present: Normal Range of Motion Respiratory/Chest: Present: Clear to Auscultation, Good Air Exchange. No: Respiratory Distress, Accessory Muscle Use Cardiovascular: Present: Normal S1, S2, Irregular Rhythm, Tachycardic. No: Murmurs Abdomen: Present: Normal Bowel Sounds. No: Tenderness, Distention, Peritoneal Signs Back: Present: Normal Inspection Upper Extremity: Present: Normal Inspection. No: Cyanosis, Edema Lower Extremity: Present: Normal Inspection. No: Edema Neurological: Present: GCS=15, CN II-XII Intact, Speech Normal Skin: Present: Warm, Dry, Normal Color. No: Rashes Psychiatric: Present: Alert, Oriented x 3, Normal Insight, Normal Concentration Medical Decision Making ED Course and Treatment: 01/09/17 11:41 Impression: A 81 year old female with a fever. On physical examination the patient appear ill with shaking rigors and a dry mucous membrane. Differential Diagnosis included but are not limited to: UTI vs. Sepsis vs. dehydration Plan: -- EKG -- Chest X-ray -- Labs -- Urinalysis -- Rapid Flu, Legionella and Procalcitonin -- Tylenol and IV Fluids -- Reassess and disposition Prior Visits: Notes and results from previous visits were reviewed. The patient last presented to the emergency department on 12/25/16 for evaluation of a high heart rate. Patient had a Left hear catheterization due to new onset atrial fibrillation, which showed a non obstructive CAD with decrease ejection fraction of 35-40%. Progress Notes: EKG: Ordered, reviewed, and independently interpreted the EKG. Rate : 124 BPM Rhythm : Atrial fibrillation with PVC Interpretation : normal axis, QRS in 100's, no new ST/T changes Comparison : compared to previous EKG on 12/25/2016 for comparison. Chest X-ray: As read by me, No active disease. 01/09/17 13:47 Patient with noted history, in afib with RVR but with fever and hemodynamically stable. Given tylenol and ivf with resolution of tachycardia. Lactic acid is normal, so no code sepsis. Chemistry is nondiagnostic. CXR is negative. Urine shows possible UTI - started on meropenem and vanco - will need tba for sepsis and iv antibiotics. Discussed with Dr. Pacheco. - Lab Interpretations Lab Results: 01/09/17 11:30 01/09/17 11:30 Lab Results 01/09/17 13:00: Urine Color Yellow, Urine Appearance Sl cloudy, Urine pH 6.0, Ur Specific [place] 1.010, Urine Protein Trace H, Urine Glucose (UA) Negative, Urine Ketones Negative, Urine Blood Moderate H, Urine Nitrate Negative, Urine Bilirubin Negative, Urine Urobilinogen 0.2, Ur Leukocyte Esterase Trace H, Urine RBC 5 - 10, Urine WBC 1 - 3, Ur Epithelial Cells 1 - 3, Urine Bacteria Few 01/09/17 12:30: Influenza Typ A,B (EIA) Negative for flu a/b 01/09/17 11:30: WBC 13.1 H, RBC 3.53, Hgb 9.9 L, Hct 30.3 L, MCV 85.8, MCH 28.0 , MCHC 32.7, RDW 15.5 H, Plt Count 307, MPV 10.3, Gran % 73.0 H, Lymph % (Auto) 17.3 L, [place] % (Auto) 8.4 H, Eos % (Auto) 1.1 L, Baso % (Auto) 0.2, Gran # 9.59 H, Lymph # 2.3, [place] # 1.1 H, Eos # 0.1, Baso # 0.03, ESR 70 H, PT 11.8, INR 1.09 H, APTT 28.9, pO2 38, VBG pH 7.26 L, VBG pCO2 43.0, VBG HCO3 19.3 L, VBG Total CO2 20.6 L, VBG O2 Sat (Calc) 63.8, VBG Base Excess -7.5 L, VBG Potassium 4.1, Glucose 127 H, Lactate 1.4, FiO2 21.0, Sodium 140.0, Potassium 3.9, Chloride 112.0 H, Carbon Dioxide 19 L, Anion Gap 17, BUN 21, Creatinine 1.2, Est GFR ( Amer) 52, Est GFR (Non-Af Amer) 43, Random Glucose 127 H, Calcium 9.1, Phosphorus 3.6, Magnesium 1.7, Total Bilirubin 0.7, AST 22, ALT 50 , Alkaline Phosphatase 116, Lactate Dehydrogenase 437, Total Creatine Kinase 26 L, Troponin I 0.02 D, NT-Pro-B Natriuret Pep 5300 H, Total Protein 7.6, Albumin 3.6, Globulin 4.0, Albumin/Globulin Ratio 0.9 L, Lipase 165, Venous Blood Potassium 4.1 I have reviewed the lab results: Yes - RAD Interpretation Radiology Orders: 01/09/17 11:39 CHEST PORTABLE [RAD] Stat - Medication Orders Current Medication Orders: Meropenem 1g/NS 100mL IVPB (Meropenem 1g/Ns 100ml Ivpb) 100 mls @ 100 mls/hr IVPB STAT STA PRN Reason: Protocol Stop: 01/09/17 14:21 Last Admin: 01/09/17 13:37 Dose: 100 MLS/HR eMAR Start Stop Document 01/09/17 13:37 SE (Rec: 01/09/17 13:37 SE [id number]) Intravenous Solution Start Date 01/09/17 Start Time 13:37 Vancomycin HCl 1 gm/ Sodium (Chloride) 250 mls @ 133.333 mls/hr IV STAT STA PRN Reason: Protocol Stop: 01/09/17 15:15 Discontinued Medications Acetaminophen (Tylenol 325mg Tab) 975 mg PO STAT STA Stop: 01/09/17 11:46 Last Admin: 01/09/17 11:57 Dose: 975 MG MAR Pain/Vitals Document 01/09/17 11:57 SE (Rec: 01/09/17 11:57 SE [id number]) Pain Reassessment Is This A Pain ReAssessment? No Sleep Is patient sleeping during reassessment? No Presence of Pain Presence of Pain No Vitals Temperature (97.6 F-99.6 F) 101.1 F Temperature Source Rectal Sodium Chloride (Sodium Chloride 0.9%) 1,000 mls @ 999 mls/hr IV .Q1H1M STA Stop: 01/09/17 12:45 Last Admin: 01/09/17 11:49 Dose: 999 MLS/HR eMAR Start Stop Document 01/09/17 11:49 SE (Rec: 01/09/17 11:57 SE [id number]) Intravenous Solution Start Date 01/09/17 Start Time 11:57 - Scribe Statement The provider has reviewed the documentation as recorded by the Scribe Claudia Mendez Provider Scribe Attestation: All medical record entries made by the Scribe were at my direction and personally dictated by me. I have reviewed the chart and agree that the record accurately reflects my personal performance of the history, physical exam, medical decision making, and the department course for this patient. I have also personally directed, reviewed, and agree with the discharge instructions and disposition. Disposition/Present on Arrival - Present on Arrival Any Indicators Present on Arrival: Yes History of DVT/PE: No History of Uncontrolled Diabetes: No Urinary Catheter: Yes (pt came with leg bag) History of Decub. Ulcer: No History Surgical Site Infection Following: None - Disposition Have Diagnosis and Disposition been Completed?: Yes Diagnosis: Sepsis Disposition: HOSPITALIZED Disposition Time: 13:40 Patient Plan: Admission Patient Problems: Current Active Problems Problem Status Diagnosed Acute bronchitis Acute Anemia of chronic disease Acute Sepsis due to Escherichia coli (E. coli) Acute Urinary tract infection Acute Syncope Resolved Condition: FAIR Discharge Instructions (ExitCare): Sepsis (ED)
[2017-01-09 11:57] LABS: ADD MANUAL DIFF? NO
[2017-01-09 12:03] LABS: BASO # 0.03 K/mm3 (0.0-2.0); BASO % 0.2 % (0.0-3.0); EOS # 0.1 (0.0-0.7); EOS % 1.1 % (1.5-5.0); GRAN # 9.59 (1.4-6.5); HEMATOCRIT 30.3 % (36.0-48.0); LYMPH # 2.3 (1.2-3.4); LYMPH % 17.3 % (22.0-35.0); MEAN CELL VOLUME 85.8 fL (80.0-105.0); MEAN CORPUSCULAR HGB CONC 32.7 g/dl (31.0-37.0); MEAN PLATELET VOLUME 10.3 fl (7.0-11.0); MONO # 1.1 (0.1-0.6); MONO % 8.4 % (1.0-6.0); PLATELET COUNT 307 10^3/uL (120.0-450.0); RED CELL DISTRIBUTION WIDTH 15.5 % (11.5-14.5); WHITE BLOOD COUNT 13.1 10^3/ul (4.5-11.0)
--- NOTE | 2017-01-09 12:05 | RAD ---
HISTORY: Sepsis Patient COMPARISON: 12/25/2016 FINDINGS: LUNGS: No active pulmonary disease. PLEURA: No significant pleural effusion identified, no pneumothorax apparent. CARDIOVASCULAR: Normal. OSSEOUS STRUCTURES: No significant abnormalities. VISUALIZED UPPER ABDOMEN: Normal. OTHER FINDINGS: None. IMPRESSION: No active disease.
[2017-01-09 12:06] LABS: VENOUS BLOOD GAS BASE EXCESS -7.5 mmol/L (0.0-2.0); VENOUS BLOOD PH 7.26 (7.32-7.43)
[2017-01-09 12:15] LABS: ALB/GLOB RATIO 0.9 (1.1-1.8); BILIRUBIN,TOTAL 0.7 mg/dL (0.2-1.3); CALCIUM 9.1 mg/dL (8.4-10.5); MAGNESIUM 1.7 mg/dL (1.7-2.2); PHOSPHOROUS 3.6 mg/dL (2.5-4.5); POTASSIUM 3.9 mmol/L (3.6-5.0); TOTAL PROTEIN 7.6 g/dL (5.8-8.3)
[2017-01-09 12:26] LABS: TROPONIN I 0.02 ng/mL
[2017-01-09 12:34] LABS: INR 1.09 (0.93-1.08); PARTIAL THROMBOPLASTIN TIME 28.9 Seconds (23.7-30.8)
[2017-01-09 13:16] LABS: URINE BILIRUBIN NEGATIVE (NEGATIVE); URINE BLOOD MODERATE (NEGATIVE); URINE GLUCOSE (UA) NEGATIVE (NEGATIVE); URINE KETONE NEGATIVE (NEGATIVE); URINE LEUKOCYTE ESTERASE TRACE Leu/uL (NEGATIVE); URINE PROTEIN TRACE mg/dL (<30 mg/dL); URINE UROBILINOGEN 0.2 E.U./dL (<1 E.U./dL)
[2017-01-09 13:20] LABS: URINE APPEARANCE SL CLOUDY (CLEAR); URINE COLOR YELLOW (YELLOW)
[2017-01-09 13:22] LABS: URINE BACTERIA FEW (NEG)
[2017-01-09] MEDS ORDERED: Meropenem 1g/NS 100mL IVPB 100 ML IVPB STA (13:22)
[2017-01-09 13:27] LABS: ERYTHROCYTE SEDIMENTATION RATE 70 mm/hr (0.0-20.0)
[2017-01-09] MEDS ORDERED: Oxycodone/Acetaminophen 5/325 mg Tab PO PRN (16:58)
[2017-01-09] MEDS: Lidocaine 5% Patch TD SCH (17:38)
[2017-01-09 20:08] VITALS: BMI 27.8
[2017-01-09] MEDS ORDERED: Dextrose 5%/0.45% NS 1,000 ML IV SCH (21:00)
[2017-01-09] MEDS ORDERED: Meropenem 1g/NS 100mL IVPB 100 ML IVPB SCH (23:15)
[2017-01-10 07:33] LABS: HEMATOCRIT 26.3 % (36.0-48.0); MEAN CELL VOLUME 84.6 fL (80.0-105.0); MEAN CORPUSCULAR HEMOGLOBIN 27.3 pg (25.0-35.0); MEAN CORPUSCULAR HGB CONC 32.3 g/dl (31.0-37.0); MEAN PLATELET VOLUME 9.8 fl (7.0-11.0); RED CELL DISTRIBUTION WIDTH 15.4 % (11.5-14.5); WHITE BLOOD COUNT 10.3 10^3/ul (4.5-11.0)
--- NOTE | 2017-01-10 07:43 | HP ---
CHIEF COMPLAINT: Fever for 2 days. HISTORY OF PRESENT ILLNESS: A 81-year-old female with history of atrial fibrillation, hypertension, hyperlipidemia, recently hospitalized for new onset of atrial fibrillation and urinary tract infection 2 weeks ago. The patient was feeling well until she developed fever 102 last night . Her fever persisted this morning and she decided to come to Emergency Room. The patient denies any dysuria, abdominal pain, diarrhea. The patient denies any cough, chest pain, shortness of breath. She complains of right shoulder pain for the past 3 weeks after she sprained it during her last hospitalization. She had depmedrol PAST MEDICAL HISTORY: Recent new onset of atrial fibrillation 2 weeks ago, hypertension, hyperlipidemia, chronic depression and insomnia, recurrent urinary tract infections, history of atonic bladder, recent cardiac catheterization with mild coronary artery disease 2 weeks ago. PAST SURGICAL HISTORY: Status post hysterectomy 40 years ago, secondary to cervical cancer, status post radiation. ALLERGIES: The patient has no known allergies. PRESENT MEDICATIONS: Cardizem CD 240 mg daily, metoprolol 25 mg twice a day, Paxil 20 mg daily, zolpidem 5 mg daily, enalapril 10 mg at night. FAMILY HISTORY: Both parents are . There is family history of hypertension and heart disease. SOCIAL HISTORY: The patient denies any smoking, alcohol or drug use. She is retired. She lives alone and she is independent of activities of daily living. REVIEW OF SYSTEMS: She complains of fever for the past 2 days. Denies any loss of appetite or weight loss. She denies any sore throat, dysphagia, nasal congestion. She denies any cough, shortness of breath. She denies any chest pain, heart palpitation, diaphoresis or weakness. She denies any abdominal pain , nausea, vomiting, diarrhea, rectal bleeding. The patient denies any dysuria or flank pain. Denies any vaginal discharge. The patient has chronic anxiety and depression with insomnia, but denies any suicidal thoughts. Complaining of right shoulder pain with radiation to the right arm. The patient also complaining of right hip pain and difficulty of walking. PHYSICAL EXAMINATION: VITAL SIGNS: Showed temperature 101.1 rectal, blood pressure 162/90, pulse rate at first 130, irregular, respiratory rate 18. GENERAL: The patient was alert, awake, oriented, in no acute form of distress. HEENT: Head was normocephalic, atraumatic. Eyes, her pupils reactive to light. No jaundice. Oral mucosa was moist. NECK: Supple, no neck masses. LUNGS: Clear to auscultation. HEART: With irregular rhythm with rate of 130 per minute. ABDOMEN: Soft, nontender, nondistended. EXTREMITIES: With no edema. No skin rashes or lesions. There is tenderness of right anterior and lateral shoulder with limitation of motion. DIAGNOSTIC TESTS: Significant for CBC with elevated WBC 13.1. She also has hemoglobin low 9.9, hematocrit 30.3 and platelet count 307. Her chemistry showed normal electrolytes, but elevated chloride 108. Her renal function, BUN 21, creatinine 1.2. Her BNP was elevated 5300. Elevated CRP at 15. Her procalcitonin was negative. Urinalysis significant for moderate amount of blood and some trace of leukocyte, but negative nitrites. Her influenza test was negative as well as urine legionella antigen negative. ASSESSMENT: A 81-year-old female with: 1. New onset of fever with uncertain etiology, must rule out urosepsis due to history of past urinary tract infection. 2. Atrial fibrillation, presently with a controlled ventricular rate. 3. Congestive heart failure. 4. Anemia with no signs of active bleeding. 5. Hypertension. 6. Right shoulder pain, rule out rotator cuff injury. PLAN OF TREATMENT: The patient will be admitted to telemetry. We will monitor her heart rate. We will start Lasix and continue Cardizem with beta allyson. Septic workup was started in Emergency Room. Infectious disease specialist will be called on consult to help for evaluation of source of fever. The patient was started on Zosyn and vancomycin in the Emergency Room. We will also order MRI of the shoulder for evaluation of persistent right shoulder pain. The patient will be also maintained on her chronic medications, enalapril and Paxil. Karly Barron MD cc: [phone] TT: 01/10/2017 07:42:14 en MTDD
[2017-01-10 07:50] LABS: ALB/GLOB RATIO 0.9 (1.1-1.8); ALKALINE PHOSPHATASE 102 U/L (38-133); ALT/SGPT 43 U/L (7-56); AST/SGOT 20 U/L (15-39); BILIRUBIN,TOTAL 0.6 mg/dL (0.2-1.3); BLOOD UREA NITROGEN 13 mg/dL (7-21); CALCIUM 8.6 mg/dL (8.4-10.5); CARBON DIOXIDE 19 mmol/L (21-33); CHLORIDE 110 mmol/L (98-107); GFR AFRICAN-AMERICAN > 60; GLUCOSE,RANDOM 130 mg/dL (70-110); POTASSIUM 3.7 mmol/L (3.6-5.0); SODIUM 140 mmol/L (132-148); TOTAL PROTEIN 6.7 g/dL (5.8-8.3)
[2017-01-10] MEDS: Meropenem 1g/NS 100mL IVPB 100 ML IVPB SCH ×2 (09:50→22:50)
[2017-01-10] MEDS: diltiaZEM 240 mg/24 Hours CD Cap PO SCH (09:53)
[2017-01-10] MEDS: Lidocaine 5% Patch TD SCH (09:54)
[2017-01-10 10:59] LABS: IRON 10 ug/dL (45-180)
--- NOTE | 2017-01-10 14:13 | PN ---
DATE: 01/10/2017 SUBJECTIVE: The patient was seen at bedside this morning. The patient is feeling well. She continues with right shoulder pain, but denies any cough, chest pain, abdominal pain or dysuria. The patient is voiding well. PHYSICAL EXAMINATION: VITAL SIGNS: Stable. The patient had fever last night of 102.1, but this morning, temperature is 98.7. Her pulse is 100 irregular, blood pressure 151/ 64 and respiratory rate is 18. GENERAL: She is comfortable in bed, alert, awake, oriented. HEENT: Head is normocephalic, atraumatic. Oral mucosa is moist. NECK: Supple, no JVD. LUNGS: Clear to auscultation. HEART: With irregular rhythm, rate of 100 per minute. ABDOMEN: Soft, nontender, nondistended. Bowel sounds are positive. EXTREMITIES: With no edema. DIAGNOSTIC TESTS: This morning significant for CBC with an improved WBC at 10.3. Her hemoglobin is 8.5. It is down from 9.9 yesterday. Her hematocrit is 26.3. Platelet count is normal. Chemistry with normal renal function. CRP is high at 15. Electrolytes are normal. Her preliminary urine culture showed no growth. Her preliminary blood cultures are negative after 24 hours. ASSESSMENT: 1. Fever with no source, probably urinary tract infection. 2. Anemia with no signs of active bleeding. 3. Hypertension. 4. Atrial fibrillation with controlled ventricular rate. 5. Right shoulder pain. PLAN OF TREATMENT: Case was discussed with infectious disease specialist. Will maintain patient on current IV antibiotic regimen. Continue with Cardizem and beta allyson for atrial fibrillation rate control. We will ask hematology consult for evaluation of anemia and recurrent fever with no source of infection. We need to rule out other etiology including malignancy. Karly Barron MD cc: [id number] TT: 01/10/2017 13:55:59 Confirmation # [id number] Dictation # [id number] maricruz [email or web address]
--- NOTE | 2017-01-10 18:09 | CARD ---
APPROVED REPORT EKG Measurement Heart [id number] <Conclusion> Atrial fibrillation with rapid ventricular response with premature ventricular or aberrantly conducted complexes Abnormal ECG
--- NOTE | 2017-01-10 18:39 | MRI ---
PROCEDURE: MRI of the right shoulder without contrast HISTORY: right shoulder pain COMPARISON: TECHNIQUE: MRI of the right shoulder was performed in multiple planes using multiple pulse sequences. FINDINGS: There is a complete tear with retraction of the rotator cuff. There is a large joint effusion which communicates with the subdeltoid and subacromial space. There is superior subluxation of the humeral head. The glenoid labrum is unremarkable. The biceps tendon is torn and absent from the bicipital groove. IMPRESSION: Complete tear and retraction of the rotator cuff with a large joint effusion
--- NOTE | 2017-01-10 20:15 | CP.PCM.CON ---
History of Present Illness - History of Present Illness History of Present Illness: 81 year old female with PMH of HTN, dyslipidemia, obesity with BMI 31, history of uterine cancer S/P hysterectomy, S/P cholecystectomy, osteoarthritis, GERD, history of depression, history of E. 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 The patient has been complaining of right shoulder pain since last week which has been worsening. She denies nausea or vomiting, no chest pain, no SOB, no no cough or colds, no headache or dizziness, no dysuria, no hematuria, no rhinorrhea, no sore throat, no diarrhea. Infectious Diseases consult is requested to further evaluate and manage. Review of Systems - Review of Systems All systems: reviewed and no additional remarkable complaints except (per HPI) Past Patient History - Infectious Disease Hx of Infectious Diseases: None - Past Medical History & Family History Past Medical History?: Yes Past Family History: Reviewed and not pertinent - Past Social History Smoking Status: Never Smoked Alcohol: None Drugs: Denies Home Situation {Lives}: With Family - CARDIAC Hx Cardiac Disorders: Yes Hx Cardia Arrhythmia: Yes Hx Hypertension: Yes - PULMONARY Hx Respiratory Disorders: No - NEUROLOGICAL Hx Neurological Disorder: No - HEENT Hx HEENT Problems: No - RENAL Hx Chronic Kidney Disease: No - ENDOCRINE/METABOLIC Hx Endocrine Disorders: No - HEMATOLOGICAL/ONCOLOGICAL Hx Blood Disorders: No - INTEGUMENTARY Hx Dermatological Problems: No - MUSCULOSKELETAL/RHEUMATOLOGICAL Hx Arthritis: Yes Hx Degenerative Joint Disease: Yes Hx Falls: No - GASTROINTESTINAL Hx Gall Bladder Disease: Yes (galbladder removal) - GENITOURINARY/GYNECOLOGICAL Hx Urinary Tract Infection: Yes - PSYCHIATRIC Hx Anxiety: Yes - SURGICAL HISTORY Hx Surgeries: Yes Hx Cholecystectomy: Yes - ANESTHESIA Hx Anesthesia Reactions: No Hx Malignant Hyperthermia: No Meds Allergies/Adverse Reactions: Allergies Allergy/AdvReac Type Severity Reaction Status Date / Time No Known Allergies Allergy Verified 01/09/17 11:22 - Medications Medications: Current Medications Acetaminophen (Tylenol 325mg Tab) 650 mg PO Q4H PRN PRN Reason: Fever >100.4 F Last Admin: 01/09/17 20:37 Dose: 650 mg Apixaban (Eliquis) 5 mg PO BID BONNIE PRN Reason: Protocol Last Admin: 01/09/17 18:52 Dose: 5 mg Atorvastatin Calcium (Lipitor) 10 mg PO DIN [facility] Last Admin: 01/09/17 18:53 Dose: 10 mg Diltiazem HCl (Cardizem Cd) 240 mg PO DAILY [facility] Dextrose/Sodium Chloride (Dextrose 5%/0.45% Ns 1000 Ml) 1,000 mls @ 60 mls/hr IV .[id number] [facility] Last Admin: 01/09/17 21:39 Dose: 60 mls/hr Meropenem 1g/NS 100mL IVPB (Meropenem 1g/Ns 100ml Ivpb) 100 mls @ 100 mls/hr IVPB Q12 [facility] PRN Reason: Protocol Stop: 01/16/17 23:16 Lidocaine (Lidoderm) 1 ea TD DAILY [facility] Last Admin: 01/09/17 17:38 Dose: 1 ea Lisinopril (Zestril) 10 mg PO BID [facility] Metoprolol Tartrate (Lopressor) 25 mg PO BID [facility] Last Admin: 01/09/17 18:53 Dose: 25 mg Oxycodone/Acetaminophen (Percocet 5/325 Mg Tab) 1 tab PO Q6H PRN PRN Reason: Pain, moderate (4-7) Stop: 01/12/17 16:59 Paroxetine HCl (Paxil) 20 mg PO DAILY [facility] Last Admin: 01/09/17 18:52 Dose: 20 mg Zolpidem Tartrate (Ambien) 5 mg PO HS PRN; Protocol PRN Reason: Insomnia Physical Exam - Constitutional Appears: Non-toxic, No Acute Distress - Head Exam Head Exam: NORMAL INSPECTION - ENT Exam ENT Exam: Mucous Membranes Moist - Neck Exam Neck exam: Negative for: Lymphadenopathy, Meningismus - Respiratory Exam Respiratory Exam: Decreased Breath Sounds - Cardiovascular Exam Cardiovascular Exam: +S1, +S2 - GI/Abdominal Exam GI & Abdominal Exam: Soft. absent: Tenderness Results - Vital Signs Recent Vital Signs: Last Vital Signs Temp 102 F H 01/09/17 20:37 Pulse 121 H 01/09/17 18:53 Resp 18 01/09/17 18:39 BP 144/81 01/09/17 18:53 Pulse Ox 89 L 01/09/17 18:39 - Labs Result Diagrams: 01/10/17 07:00 01/10/17 07:00 Assessment & Plan - Assessment and Plan (Free Text) Plan: Assessment Systemic Inflammatory Response Syndrome, consider secondary to complete rotator cuff tear of the right shoulder R/O sepsis source to be determined history of asmyptomatic bacteriuria with ESBL Klebsiella and VRE Atrial fibrillation history of E. coli bacteremia, urine as the source HTN dyslipidemia obesity with BMI 31 history of uterine cancer S/P hysterectomy S/P cholecystectomy osteoarthritis GERD history of depression Plan Started patient on Daptomycin and Merrem; urine and blood cx are negative so far ; MRI of the shoulder noted with rotator cuff tear - awaiting Orthopedic evaluation and management Follow up PCT; reviewed CXR Will follow clinically
[2017-01-11] MEDS ORDERED: MethylPREDNISolone Depo 40 mg/ml Inj IM ONE (07:20)
[2017-01-11] MEDS ORDERED: Bupivacaine 0.5% Inj(30mL) IJ ONE (07:20)
[2017-01-11 07:43] LABS: HEMATOCRIT 26.1 % (36.0-48.0); MEAN CELL VOLUME 83.7 fL (80.0-105.0); MEAN CORPUSCULAR HEMOGLOBIN 27.2 pg (25.0-35.0); MEAN CORPUSCULAR HGB CONC 32.6 g/dl (31.0-37.0); MEAN PLATELET VOLUME 9.9 fl (7.0-11.0); RED CELL DISTRIBUTION WIDTH 15.1 % (11.5-14.5)
[2017-01-11 08:09] LABS: ALB/GLOB RATIO 0.8 (1.1-1.8); ALKALINE PHOSPHATASE 101 U/L (38-133); ALT/SGPT 44 U/L (7-56); AST/SGOT 23 U/L (15-39); BILIRUBIN,TOTAL 0.7 mg/dL (0.2-1.3); BLOOD UREA NITROGEN 12 mg/dL (7-21); CALCIUM 8.6 mg/dL (8.4-10.5); CARBON DIOXIDE 22 mmol/L (21-33); CHLORIDE 106 mmol/L (98-107); GFR AFRICAN-AMERICAN > 60; GLUCOSE,RANDOM 134 mg/dL (70-110); POTASSIUM 3.5 mmol/L (3.6-5.0); SODIUM 138 mmol/L (132-148); TOTAL PROTEIN 6.9 g/dL (5.8-8.3)
[2017-01-11 08:23] LABS: FLUID TYPE SYNOVIAL FLUID
[2017-01-11 08:38] LABS: SYNOVIAL FLUID LYMPHOCYTE 2.5 % (0-0); SYNOVIAL FLUID NEUTROPHIL 97.5 % (0-0); SYNOVIAL FLUID TOTAL COUNT 100 (0-0)
--- NOTE | 2017-01-11 09:55 | PN ---
DATE: 01/11/2017 The patient feels better this morning. The patient had right shoulder aspirated by orthopedist. A large amount of thick yellow pus was obtained and sent for cultures. The patient was febrile last night with temperature 100.8. She denies any abdominal pain, diarrhea, cough, or dysuria. PHYSICAL EXAMINATION: VITALS: Temperature this morning 98.4. She was febrile with a temperature of 101.5 last night. Her pulse is 100 irregular, blood pressure 141/67, respiratory rate 18. She is comfortable, sitting in bed, alert, awake, oriented. HEAD: Normocephalic, atraumatic. Oral mucosa is moist. NECK: Supple. LUNGS: Clear to auscultation. There is tenderness and limitation of motion of the right shoulder. HEART: With irregular rhythm, rate of 100 per minute. ABDOMEN: Soft, nontender, nondistended. EXTREMITIES: Lower extremities with no edema. DIAGNOSTIC TESTS: Significant for CBC with leukocytosis of 13,000, hemoglobin 8.5 stable, and hematocrit 26.1. Chemistry: Potassium is borderline low at 3.5 , sodium is 138. BUN and creatinine is normal. Her cultures came positive for Staphylococcus aureus, coagulase negative. FISH preliminary with pending sensitivity. Urine culture was negative. Her aspiration of the right shoulder is still pending. MRI of her shoulder showed full tear of rotator cuff and biceps, with large amount of effusion. ASSESSMENT: 1. Staphylococcus aureus coagulase negative bacteremia with most probable source from right shoulder. 2. Atrial fibrillation with rapid ventricular response. 3. Anemia of chronic disease. 4. Hypertension. 5. Full rotator cuff tear. PLAN OF TREATMENT: Followup of blood culture and wound culture. Will discuss current antibiotic therapy. Continue Cardizem and metoprolol. 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 Will monitor closely. Karly Barron MD cc: [id number] TT: 01/11/2017 09:54:42 Confirmation # [id number] Dictation # [id number] jn JULY
--- NOTE | 2017-01-11 10:37 | CON ---
DATE: 01/11/2017 A 81-year-old female with swollen right shoulder, recurrent, was seen approximately a week ago with r ight shoulder pain when she injured it on her bed and the past history is that she has been having pa in for several years. X-ray and MRI confirmed that she has a rotator cuff tear with chronic arthriti s consistent with rotator cuff arthropathy and AC joint arthritis. She has a new effusion of her davian ulder. Last time, it was serosanguineous with blood and synovial fluid. Today, it was more turbid a nd no blood. We extracted about 40 mL of turbid fluid and sent it for culture, cell count and chris ls and we will wait the results. She is presently being treated by Dr. Castillo for other medical loreto sons. So we will wait for the culture, cell count and crystal analysis. She is already on antibioti cs. She has a bacteremia. Grant Bains DO cc: [id number] TT: 01/11/2017 10:37:15 Confirmation # [id number] Dictation # [id number] iwlber
[2017-01-11] MEDS: diltiaZEM 240 mg/24 Hours CD Cap PO SCH (10:45)
[2017-01-11] MEDS: Lidocaine 5% Patch TD SCH (10:53)
[2017-01-11] MEDS: Potassium Chloride 10 mEq ER Tab PO SCH (10:59)
[2017-01-11] MEDS: Meropenem 1g/NS 100mL IVPB 100 ML IVPB SCH ×3 (11:39→21:53)
[2017-01-11] MEDS ORDERED: diltiaZEM IVPB 100mg in NS 100 ML IV PRN (13:23)
--- NOTE | 2017-01-11 14:13 | CARD ---
APPROVED REPORT EKG Measurement Heart [id number] <Conclusion> Atrial fibrillation with rapid ventricular response Nonspecific ST abnormality Abnormal ECG
--- NOTE | 2017-01-11 14:30 | PN ---
DATE: 01/11/2017 SUBJECTIVE: This is a followup visit after seeing the patient initially on 01/10. The patient is feel ing better after her joint was tapped. A large amount of purulent material was removed and sent for cultures. The patient was febrile with a T-max of 100.8. Denies any history of abdominal pain, diar joelle, cough or dysuria, has been tolerating the antibiotics, daptomycin and Merrem, at this time. OBJECTIVE: VITAL SIGNS: T-max is 98.4. The patient was febrile, temp max was 101, pulse is rapid which is prob ably more than 120, blood pressure is 141/67, respiration rate is 18. The patient is being transferr ed to telemetry for further management including probably IV medicines to control the rate. HEENT: Head is normocephalic, atraumatic. Examination of the oropharynx reveals no oropharyngeal le sions. There is no candidiasis. No ulceration. NECK: Supple. LUNGS: Clear to percussion and auscultation. There is exquisite tenderness and limitation of range of motion of the right shoulder. HEART: Reveals it to be regular with a rapid heart rate. ABDOMEN: Soft, nontender. No rebound, rigidity or guarding is noted. EXTREMITIES: Reveal ____ reduced at this time. DIAGNOSTIC TESTS: White count is 13,000, hemoglobin is 8.5, hematocrit 26, potassium has formalized at 3.5. BUN and creatinine are normal. The patient has on the blood culture Staph aureus, coagulase negative. Preliminary testing for FISH is pending. Wound cultures were negative. Fluid from the j oint has been sent for culture which is pending. The cytology diagnosis shows a lot of pus cells whi ch is consistent that this could be a source for her temperature at this time. The patient could have had a bacteremic phase with infection in the right shoulder and in view of the fact that she also has cardiac issues with a slightly enlarged left atrium, we will check with cardi ology would this have any impact to make sure that she does not have any cardiologic sources or sites for infection as well. Anemia that needs to be monitored may require blood transfusion p.r.n. Now it looks like we have the source for infection. Hypertension. Full rotator cuff tear with tear of t he biceps muscle. RECOMMENDATIONS: Agree with current plans for treatments with the broad spectrum antibiotics and adj ustment based on sensitivity. Monitor the counts. Monitor cardiology input, will depend what they w ant to recommend as far as rate and whether the patient should have any other testing done if the tem perature continues, especially a test like a PIEDAD. We will monitor closely. Please reconsult if work up for ____, including marrow aspiration is necessary. Thank you for allowing me to participate in the management of this patient. Jayshree Castillo MD cc: [id number] TT: 01/11/2017 14:29:43 Confirmation # [id number] Dictation # [id number] tn
--- NOTE | 2017-01-11 15:08 | CON ---
DATE: 01/11/2017 The patient is in room 376. REASON FOR CONSULTATION: The patient has been spiking temperature for the last few days with tempera ture up to 102 degrees Fahrenheit and the question is whether patient has fever of unknown etiology a nd that is why heme/onc input has been requested. HISTORY OF PRESENT ILLNESS: This is a 81-year-old female who has had multiple admissions, at least t o 2 different hospitals this year and [facility] over the last 6 weeks. The patient has a histor y of atrial fibrillation, hypertension, hyperlipidemia, recently hospitalized to [facility] er for new onset of atrial fibrillation and urinary tract infection 2 weeks ago. The patient had dev eloped over the last few days, again malaise and developed a fever prior to the admission of 102 degr ees Fahrenheit. Fever persisted and patient was advised to come to the Emergency Room. The patient denies any history of dysuria, abdominal pain, diarrhea or any pain anywhere else. Denies any cough, chest pain, shortness of breath. The patient is complaining of significant right shoulder pain for the past 3 weeks after she strained it during her last hospitalization. The patient has a history of atrial fibrillation, for which she had workup including a recent cardiac catheterization for mild co ronary artery disease. The patient's daughter, who is with the patient, tells me that her symptoms a ctually started even before that when she was at the [facility] with protracted diarrhea when a l ot of other members in the family had gotten sick and that weakened her because it took several weeks for her to get back to her state of slight normalcy. Then now, she has had these issues. She has h istory of chronic depression. She has a history of insomnia. She has had recurrent urinary tract in fection with history of atonic bladder with a background history of uterine carcinoma in the remote p ast. In view of the fact patient had cervical cancer, for which she had undergone a hysterectomy 40 years ago, status post radiation, and since then, she has had recurrent infections secondary to bladd er issues. ALLERGIES: The patient has no known allergies. MEDICATIONS: Include Cardizem 240 mg daily, metoprolol 50 b.i.d., Paxil 20 daily, zolpidem 5 mg ata y, enalapril 10 mg at bedtime. FAMILY HISTORY: Both parents are . There is a history of hypertension and heart disease in the family. SOCIAL HISTORY: The patient is a nonsmoker, nonalcoholic. She is retired, lives alone and had been able to do all her activities of daily living. The patient, as mentioned, has been having significant temperatures over the last 2 days as per my di scussion and interpretation through her daughter. Denies any history of chest pain, diaphoresis, wea kness or palpitation. Denies any history of nausea, vomiting. The patient has been having significa nt discomfort in the right shoulder with radiation to the right arm that has progressively worsened. It looks like she did have a tap of the right shoulder a few weeks ago done by Dr. Bains. Th e patient had an MRI done of the shoulder today, which we will review in my dictation. PHYSICAL EXAMINATION: GENERAL: The patient is awake, alert. VITAL SIGNS: The patient had a temperature of 101. She is still feeling chilly now and they are rec hecking her temperature as I am examining her. Blood pressure is 160/90, pulse rate is 130, irregula r, respirations about 18 per minute. ____ 130 per minute. HEENT: Head is normocephalic, atraumatic. Conjunctivae are pale. Sclerae are anicteric. Pupils ar e equally reactive to light and accommodation. NECK: Supple. There is no adenopathy. Examination of the oropharynx reveals no oropharyngeal lesio ns. LUNGS: Clear to percussion and auscultation. HEART: Reveals an irregular rhythm with rate around 120 per minute. ABDOMEN: Soft, nontender, nondistended. No rebound, rigidity or guarding is noted. EXTREMITIES: There is no cyanosis, clubbing or edema. The patient has tenderness of the right anter ior and right lateral shoulder with limitation of range of motion. The MRI done today shows a complete tear of the rotator cuff with a joint effusion of more than 60 mL that may have to be tapped to rule out the source of infection. LABORATORY DATA: Shows white count is 13, hemoglobin has dropped from 9 to 8 with a platelet count o f 307,000. Chemistries reveal relatively unremarkable electrolytes, BUN is 21 and creatinine is 1.2. BNP is elevated with an elevated CRP. Procalcitonin is negative. The patient had blood cultures i n periphery, which are showing coagulase negative Staph, which needs to be ascertained as to whether it is real and pathogenic or is it a contaminant. ID is already on the case and patient is on broad- spectrum antibiotics. The patient had a CAT scan of the abdomen and pelvis and CAT scan of the chest done maybe 2-1/2 weeks ago, which did not reveal anything remarkable as far as any evidence of fior s or fever that could be related to an underlying malignancy. Urinalysis is significant for a modera te amount of blood, but negative for nitrites. Urine for legionella antigen was negative. ASSESSMENT NOTES AND PLAN: The patient has a new onset of fever of unknown origin, started recently after having initially treated in the recent past. The questions that are raised are is there a sour ce for recurrent infection, for which the patient is currently on broad spectrum antibiotics, which d aptomycin and Merrem. I discussed the case in detail with the patient's family and also spoke to the PMD, Dr. Pacheco. Plan would be to wait and watch and see where we go. Cultures from the [facility] also will be sent for analysis to determine if that is the source of infection. I would be juan pablo rned about source of infection even in the heart. We will check with cardiology what their thoughts are on that. If patient continues to spike temperature despite being on antibiotics with no obvious source of pathogen, then would consider bone marrow aspiration and biopsy, which could be sent for cu ltures as well as part of the workup for fever of unknown origin. I told the family that in elderly people and anybody above the age of 40, having fevers with chills with unexplained findings, one woul d have to think of cancer as an underlying source as well. We will follow the patient with you and lindsay mare appropriate recommendations as needed. No further workup has been ordered at this time. We will continue to monitor her case over the next 48-72 hours. Jayshree Castillo MD cc: [id number] TT: 01/11/2017 14:46:06 Confirmation # [id number] Dictation # [id number]
[2017-01-11] MEDS: diltiaZEM IVPB 100mg in NS 100 ML IV PRN ×2 (17:52→21:57)
[2017-01-11] MEDS ORDERED: Potassium Chloride 20 mEq ER Tab PO ONE (18:22)
--- NOTE | 2017-01-11 21:54 | CON ---
DATE: 01/11/2017 The patient is in room 376, bed 2. REASON FOR CONSULTATION: Fever, atrial fibrillation with rapid rate, hypertension, coronary artery d isease and left ventricular dysfunction. HISTORY OF PRESENT ILLNESS: The patient is a 81-year-old female admitted with a history that she is having fevers since the last 2 days. She also has swelling and pain on the right shoulder. The augusto ent denies chest pain, shortness of breath, palpitations but she was found to have atrial fibrillatio n with rapid rate. PAST MEDICAL HISTORY: Positive for atrial fibrillation, hypertension, hyperlipidemia, chronic depres chadwick, insomnia, recurrent urinary tract infection, history of bladder and shoulder pain. The pa paula had cardiac catheterization 12/28/2016. PAST SURGICAL HISTORY: Status post hysterectomy 40 years ago for cervical cancer and status post rad iation. The patient also had appendectomy and cholecystectomy. ALLERGIES: The patient denies any allergies. MEDICATIONS: The patient's list of medications at home: Cardizem-CD 240 one daily, metoprolol 25 mg b.i.d., Paxil 20 mg daily, zolpidem 5 mg daily, enalapril 10 mg daily. PERSONAL HISTORY: No history of smoking or drinking. REVIEW OF SYSTEMS: All the systems were reviewed. Positives mentioned in the history, negativ e. CARDIAC WORKUP: The patient had an echocardiogram 12/27/2016. LV size was normal. Systolic functio n of LV was mildly impaired. Trace aortic regurgitation. [id number] tricuspid regurg. RVSP 4 5 mmHg suggestive of mild pulmonary hypertension. The patient had a stress test 12/27/2016, which sh owed partially reversible anterior defect with ejection fraction of 40%. The patient had cardiac cat heterization 12/28/2016. It showed nonobstructive coronary artery disease. LAD was 50% to 55% steno sis and LV ejection fraction was 35% to 40% suggestive of nonischemic cardiomyopathy. EDP was 14 mmH g. PHYSICAL EXAMINATION: VITAL SIGNS: Blood pressure 130/84, respirations 22, pulse 130 per minute, fever of 102. HEENT: Head is normocephalic. Eyes: Pupils normal. Conjunctivae slightly pale. NECK: JVP low. Carotid equal. THORAX: AP diameter normal. LUNGS: Clear. CARDIOVASCULAR: S1, S2, rapid rate due to atrial fibrillation. ABDOMEN: Soft, nontender, no organomegaly. EXTREMITIES: Right shoulder is swollen and tender. Dr. Grant Bains did aspiration of 40 mL of turbid fluid. No clubbing, no edema, no cyanosis. LABORATORY DATA: WBC 13.0, hemoglobin 8.5, hematocrit 26.1, platelet 256. Sodium 138, potassium 3.5 , BUN 14, creatinine 0.9. AST, ALT normal. Albumin 3.1, total protein 6.9. Random glucose 134. Ch est x-ray, no abnormality seen. EKG: Atrial fibrillation with rapid rate, nonspecific ST-T changes. DIAGNOSES: Fever with chills, sepsis, atrial fibrillation rapid rate, anemia, hypertension, hypokale reyes, right shoulder pain and swelling, 40 mL of turbid fluid aspirated by Dr. Grant Bains fro m the right shoulder, nonischemic cardiomyopathy with left ventricular ejection fraction of 35% to 40 %, nonobstructive coronary artery disease with left anterior descending 50% to 55% stenosis. PLAN: As the patient is on 3R we cannot start a Cardizem drip, so will give a stat 10 mg Cardizem IV bolus and we are going to transfer her to telemetry and will start a Cardizem drip. Will hold p.o. Cardizem. Will discontinue Lopressor and replace it with atenolol 25 mg daily to control the heart r ate. Also, culture on the aspirated fluid on the shoulder and blood cultures have been already sent. Will give K therapy. The patient is getting Eliquis 5 mg b.i.d. Potassium 20 mEq p.o. has been gi iwona. Will give extra potassium. The patient is on Lasix 40 IV daily, Lipitor 10 mg daily, meropenem 1 gram IV q.12 hours, Paxil 20 mg p.o. daily, and lisinopril 10 mg daily. Will monitor her closely and will follow with you. Will repeat electrolytes in the morning again. Jimmy Kidd MD cc: [id number] TT: 01/11/2017 21:53:02 Confirmation # [id number] Dictation # [id number] dn
--- NOTE | 2017-01-11 23:38 | CP.PCM.PN ---
Subjective - Date & Time of Evaluation Date of Evaluation: 01/11/17 Time of Evaluation: 09:40 - Subjective Subjective: Comfortable in bed, not in distress. Had drainage of fluid from her right shoulder this morning and is feeling better after the procedure. Still had fever in the morning. Objective - Vital Signs/Intake and Output Vital Signs (last 24 hours): Temp Pulse Resp BP Pulse Ox 98.4 F 95 H 22 130/84 93 L 01/11/17 18:00 01/11/17 22:00 01/11/17 18:00 01/11/17 18:00 01/11/17 06:00 Intake and Output: 01/11/17 01/12/17 18:59 06:59 Intake Total 360 Balance 360 - Medications Medications: Current Medications Acetaminophen (Tylenol 325mg Tab) 650 mg PO Q4H PRN PRN Reason: Fever >100.4 F Last Admin: 01/11/17 05:52 Dose: 650 mg Alprazolam (Xanax) 0.25 mg PO BID PRN; Protocol PRN Reason: Anxiety Stop: 01/18/17 09:15 Apixaban (Eliquis) 5 mg PO BID [facility] PRN Reason: Protocol Last Admin: 01/11/17 17:33 Dose: 5 mg Atenolol (Tenormin) 25 mg PO DAILY [facility] Last Admin: 01/11/17 17:51 Dose: 25 mg Atorvastatin Calcium (Lipitor) 10 mg PO DIN [facility] Last Admin: 01/11/17 17:33 Dose: 10 mg Diltiazem HCl (Cardizem Cd) 240 mg PO DAILY [facility] Last Admin: 01/11/17 10:45 Dose: 240 mg Furosemide (Lasix) 40 mg IVP DAILY [facility] Last Admin: 01/11/17 10:45 Dose: 40 mg Meropenem 1g/NS 100mL IVPB (Meropenem 1g/Ns 100ml Ivpb) 100 mls @ 100 mls/hr IVPB Q12H [facility] PRN Reason: Protocol Stop: 01/17/17 10:01 Last Admin: 01/11/17 21:53 Dose: 100 mls/hr Daptomycin 430 mg/ Sodium (Chloride) 100 mls @ 200 mls/hr IV DAILY [facility] PRN Reason: Protocol Last Admin: 01/11/17 11:39 Dose: 200 mls/hr diltiaZEM IVPB 100mg in NS (Cardizem 100mg In Ns) 100 mls @ 10 mls/hr IV .Q10H PRN; Protocol; 10 MG/HR PRN Reason: TITRATE PER MD ORDER Last Admin: 01/11/17 21:57 Dose: 10 mls/hr Lidocaine (Lidoderm) 1 ea TD DAILY [facility] Last Admin: 01/11/17 10:53 Dose: 1 ea Lisinopril (Zestril) 10 mg PO DAILY [facility] Last Admin: 01/11/17 10:53 Dose: 10 mg Oxycodone/Acetaminophen (Percocet 5/325 Mg Tab) 1 tab PO Q6H PRN PRN Reason: Pain, moderate (4-7) Stop: 01/12/17 16:59 Paroxetine HCl (Paxil) 20 mg PO 1800 [facility] Last Admin: 01/11/17 17:33 Dose: 20 mg Potassium Chloride (Klor-Con 10) 20 meq PO BRK [facility] Last Admin: 01/11/17 10:59 Dose: 20 meq Zolpidem Tartrate (Ambien) 5 mg PO HS PRN; Protocol PRN Reason: Insomnia Last Admin: 01/11/17 01:11 Dose: 5 mg - Labs Labs: 01/11/17 06:35 01/11/17 06:35 PT 11.8 Seconds (9.9-11.8) 01/09/17 11:30 INR 1.09 (0.93-1.08) H 01/09/17 11:30 APTT 28.9 Seconds (23.7-30.8) 01/09/17 11:30 - Constitutional Appears: Non-toxic, No Acute Distress - Head Exam Head Exam: NORMAL INSPECTION - ENT Exam ENT Exam: Mucous Membranes Moist - Neck Exam Neck Exam: absent: Lymphadenopathy, Meningismus - Respiratory Exam Respiratory Exam: Decreased Breath Sounds - Cardiovascular Exam Cardiovascular Exam: +S1, +S2 - GI/Abdominal Exam GI & Abdominal Exam: Soft. absent: Tenderness Assessment and Plan - Assessment and Plan (Free Text) Plan: Assessment Systemic Inflammatory Response Syndrome, consider sepsis secondary to complete rotator cuff tear of the right shoulder with infection of the effusion (ie. possible septic arthritis of the right shoulder) S/P drainage of the fluid today Coagulase negative staph in 1 of 4 bottles R/O contamination history of asmyptomatic bacteriuria with ESBL Klebsiella and VRE Atrial fibrillation history of E. coli bacteremia, urine as the source HTN dyslipidemia obesity with BMI 31 history of uterine cancer S/P hysterectomy S/P cholecystectomy osteoarthritis GERD history of depression Plan continue Daptomycin and Merrem pending culture of the right shoulder fluid; repeat blood cx is negative so far; MRI of the shoulder noted with rotator cuff tear reviewed CXR Will follow clinically
[2017-01-12 07:50] LABS: GRAN # 10.42 (1.4-6.5); GRAN % 90.2 % (50.0-68.0); HEMATOCRIT 26.6 % (36.0-48.0); LYMPH # 0.8 (1.2-3.4); MEAN CELL VOLUME 83.9 fL (80.0-105.0); MEAN CORPUSCULAR HEMOGLOBIN 27.8 pg (25.0-35.0); MEAN CORPUSCULAR HGB CONC 33.1 g/dl (31.0-37.0); MEAN PLATELET VOLUME 10.2 fl (7.0-11.0); MONO # 0.3 (0.1-0.6); MONO % 2.8 % (1.0-6.0); PLATELET COUNT 267 10^3/uL (120.0-450.0); RED CELL DISTRIBUTION WIDTH 15.2 % (11.5-14.5); WHITE BLOOD COUNT 11.6 10^3/ul (4.5-11.0)
[2017-01-12 07:56] LABS: ADD MANUAL DIFF? NO
[2017-01-12 07:58] LABS: CALCIUM 8.9 mg/dL (8.4-10.5); MAGNESIUM 1.5 mg/dL (1.7-2.2); PHOSPHOROUS 3.9 mg/dL (2.5-4.5); POTASSIUM 4.6 mmol/L (3.6-5.0)
[2017-01-12] MEDS: Potassium Chloride 10 mEq ER Tab PO SCH (10:44)
[2017-01-12] MEDS: Lidocaine 5% Patch TD SCH (10:46)
[2017-01-12] MEDS: Meropenem 1g/NS 100mL IVPB 100 ML IVPB SCH ×2 (10:47→21:55)
[2017-01-12] MEDS: diltiaZEM IVPB 100mg in NS 100 ML IV PRN (10:50)
--- NOTE | 2017-01-12 13:38 | CP.PCM.PN ---
Subjective - Date & Time of Evaluation Date of Evaluation: 01/12/17 Time of Evaluation: 13:05 - Subjective Subjective: Less pain in the right shoulder. No fevers overnight, no muscle aches, no diarrhea, no nausea. Objective - Vital Signs/Intake and Output Vital Signs (last 24 hours): Temp Pulse Resp BP Pulse Ox 99.1 F 72 19 134/79 93 L 01/12/17 12:00 01/12/17 12:00 01/12/17 12:00 01/12/17 12:00 01/12/17 05:31 Intake and Output: 01/12/17 01/12/17 06:59 18:59 Intake Total 585 Balance 585 - Medications Medications: Current Medications Acetaminophen (Tylenol 325mg Tab) 650 mg PO Q4H PRN PRN Reason: Fever >100.4 F Last Admin: 01/11/17 05:52 Dose: 650 mg Alprazolam (Xanax) 0.25 mg PO BID PRN; Protocol PRN Reason: Anxiety Stop: 01/18/17 09:15 Apixaban (Eliquis) 5 mg PO BID [facility] PRN Reason: Protocol Last Admin: 01/12/17 10:45 Dose: 5 mg Atenolol (Tenormin) 25 mg PO DAILY [facility] Last Admin: 01/12/17 10:56 Dose: 25 mg Atorvastatin Calcium (Lipitor) 10 mg PO DIN [facility] Last Admin: 01/11/17 17:33 Dose: 10 mg Diltiazem HCl (Cardizem Cd) 240 mg PO DAILY [facility] Last Admin: 01/11/17 10:45 Dose: 240 mg Furosemide (Lasix) 40 mg IVP DAILY [facility] Last Admin: 01/12/17 10:45 Dose: 40 mg Meropenem 1g/NS 100mL IVPB (Meropenem 1g/Ns 100ml Ivpb) 100 mls @ 100 mls/hr IVPB Q12H [facility] PRN Reason: Protocol Stop: 01/17/17 10:01 Last Admin: 01/12/17 10:47 Dose: 100 mls/hr Daptomycin 430 mg/ Sodium (Chloride) 100 mls @ 200 mls/hr IV DAILY [facility] PRN Reason: Protocol Last Admin: 01/12/17 10:48 Dose: 200 mls/hr diltiaZEM IVPB 100mg in NS (Cardizem 100mg In Ns) 100 mls @ 10 mls/hr IV .Q10H PRN; Protocol; 10 MG/HR PRN Reason: TITRATE PER MD ORDER Last Admin: 01/12/17 10:50 Dose: 10 mls/hr Lidocaine (Lidoderm) 1 ea TD DAILY [facility] Last Admin: 01/12/17 10:46 Dose: 1 ea Lisinopril (Zestril) 10 mg PO DAILY [facility] Last Admin: 01/12/17 10:44 Dose: 10 mg Oxycodone/Acetaminophen (Percocet 5/325 Mg Tab) 1 tab PO Q6H PRN PRN Reason: Pain, moderate (4-7) Stop: 01/12/17 16:59 Paroxetine HCl (Paxil) 20 mg PO 1800 [facility] Last Admin: 01/11/17 17:33 Dose: 20 mg Potassium Chloride (Klor-Con 10) 20 meq PO BRK [facility] Last Admin: 01/12/17 10:44 Dose: 20 meq Zolpidem Tartrate (Ambien) 5 mg PO HS PRN; Protocol PRN Reason: Insomnia Last Admin: 01/11/17 23:36 Dose: 5 mg - Labs Labs: 01/12/17 07:41 01/12/17 07:41 PT 11.8 Seconds (9.9-11.8) 01/09/17 11:30 INR 1.09 (0.93-1.08) H 01/09/17 11:30 APTT 28.9 Seconds (23.7-30.8) 01/09/17 11:30 - Constitutional Appears: Non-toxic, No Acute Distress - Head Exam Head Exam: NORMAL INSPECTION - ENT Exam ENT Exam: Mucous Membranes Moist - Neck Exam Neck Exam: absent: Lymphadenopathy, Meningismus - Respiratory Exam Respiratory Exam: Decreased Breath Sounds - Cardiovascular Exam Cardiovascular Exam: +S1, +S2 - GI/Abdominal Exam GI & Abdominal Exam: absent: Tenderness - Extremities Exam Additional comments: right shoulder with dry dressing in place Assessment and Plan - Assessment and Plan (Free Text) Plan: Assessment Systemic Inflammatory Response Syndrome, consider sepsis secondary to complete rotator cuff tear of the right shoulder with infection of the effusion (ie. possible septic arthritis of the right shoulder) S/P drainage of the fluid POD # 1 Coagulase negative staph in 1 of 4 bottles R/O contamination history of asmyptomatic bacteriuria with ESBL Klebsiella and VRE Atrial fibrillation history of E. coli bacteremia, urine as the source HTN dyslipidemia obesity with BMI 31 history of uterine cancer S/P hysterectomy S/P cholecystectomy osteoarthritis GERD history of depression Plan continue Daptomycin and Merrem (day 2) pending culture of the right shoulder fluid - the fluid grossly had some pus with it; repeat blood cx is negative so far; MRI of the shoulder noted with rotator cuff tear - follow up further plans of ORtho reviewed CXR Will continue to follow clinically
--- NOTE | 2017-01-12 17:34 | PN ---
DATE: 01/12/2017 The patient was transferred to telemetry floor after heart rate increased to 130. The patient has chronic atrial fibrillation with presently a rapid ventricular response. She was treated with IV Cardizem drip. The patient is doing better this morning. She is afebrile. She has good appetite. Her right shoulder pain improved. She denies any chest pain, shortness of breath, diarrhea or abdominal pain. PHYSICAL EXAMINATION: VITAL SIGNS: Stable this morning, temperature 97.7, pulse 111 irregular, blood pressure 135/64, respiratory rate 22. GENERAL: She is comfortable, sitting on the bed, alert, awake, oriented. HEENT: Head is normocephalic, atraumatic. Oral mucosa is moist. NECK: Supple. LUNGS: Clear to auscultation. There is tenderness of the right anterior shoulder, there is improvement of her ____activity with right shoulder. HEART: With irregular rhythm, rate of 110 per minute. ABDOMEN: Soft, nontender, nondistended. EXTREMITIES: Lower extremities with no edema and full range of motion. DIAGNOSTIC TESTS: CBC significant for WBC 11.6, hemoglobin 8.8, improved since yesterday. Chemistry with normal electrolytes and normal renal function. Her synovial fluid significant for high WBC at 44,000 with increase of neutrophils and large amount of red cells. Her preliminary repeated cultures are negative. Gram stain synovial fluid culture is negative after 24 hours. ASSESSMENT: 1. Bacteremia with Staphylococcus aureus coagulase negative with possible source of synovial fluid from the right shoulder. 2. Probably septic shoulder. 3. Atrial fibrillation with rapid ventricular response with improved heart rate. 4. Anemia of chronic disease, currently stable. 5. Hypertension. PLAN OF TREATMENT: Follow up synovial cultures and repeated blood cultures. We will continue IV daptomycin and Merrem. The patient's IV Cardizem drip was discontinued. The patient was switched back to oral Cardizem 240 mg daily. Will monitor her electrolytes closely. Karly Barron MD cc: [id number] TT: 01/12/2017 17:33:47 Confirmation # [id number] Dictation # [id number] jn [facility]
--- NOTE | 2017-01-12 17:44 | PN ---
DATE: 01/12/2017 REASON FOR CONSULTATION AND FOLLOWUP: Fever, atrial fib with rapid rate, hypertension, coronary jacy ry disease and ventricular dysfunction. BRIEF CLINICAL HISTORY: This is a 81-year-old female admitted with history that she is having fever the last 2 days, admitted with fever and chills. Denies any chest pain, shortness of breath, any pal pitation. PAST MEDICAL HISTORY: Significant for hypertension, hyperlipidemia, chronic depression, urinary trac t infection. The patient had a cardiac catheterization 12/28/2016 that shows nonobstructive coronary artery disease, LAD 50-50%, ejection fraction 35-40%, suggestive of nonischemic cardiomyopathy. EDP was in the range of 14. PHYSICAL EXAMINATION: VITAL SIGNS: Temperature afebrile, heart rate 72, blood pressure 134/79. HEENT: PERRLA. Extraocular muscles intact. NECK: Supple. No carotid bruits. No thyromegaly. CHEST: Clear to auscultation. HEART: S1, S2 irregular. ABDOMEN: Soft. EXTREMITIES: Clubbing and cyanosis negative. BLOOD WORKUP: WBC 11.9, hemoglobin 8.8, hematocrit 26.6, platelet count 267. Chemistry shows sodium 144, potassium 4.____, chloride 108, hematocrit 23, anion gap of 15, BUN 25, creatinine 1.1. IMPRESSION: Chronic atrial fibrillation, hypertension, hyperlipidemia, nonobstructive coronary arter y disease, fever, sepsis. RECOMMENDATION: Continue broad spectrum antibiotic. Control the rate. Continue Eliquis, continue C ardizem. Once the rate is controlled changed to p.o. We will follow with you. Thank you, Dr. Pacheco, for providing the opportunity in taking care of the patient. Jimmy Garcia MD cc: [id number] TT: 01/12/2017 17:44:39 Confirmation # [id number] Dictation # [id number] mn
[2017-01-13 07:50] LABS: HEMATOCRIT 28.6 % (36.0-48.0); MEAN CELL VOLUME 85.1 fL (80.0-105.0); MEAN CORPUSCULAR HEMOGLOBIN 27.4 pg (25.0-35.0); MEAN CORPUSCULAR HGB CONC 32.2 g/dl (31.0-37.0); MEAN PLATELET VOLUME 10.7 fl (7.0-11.0); RED CELL DISTRIBUTION WIDTH 15.5 % (11.5-14.5); WHITE BLOOD COUNT 16.4 10^3/ul (4.5-11.0)
[2017-01-13 08:10] LABS: ALB/GLOB RATIO 0.9 (1.1-1.8); BILIRUBIN,TOTAL 0.4 mg/dL (0.2-1.3); CALCIUM 9.1 mg/dL (8.4-10.5); POTASSIUM 4.8 mmol/L (3.6-5.0); TOTAL PROTEIN 7.3 g/dL (5.8-8.3)
--- NOTE | 2017-01-13 09:21 | PN ---
DATE: 01/13/2017 UPDATED REPORT The patient is in room 269, bed 2. The patient presents with much less pain of her right shoulder that was first evaluated on 12/01/16 fo r effusion of the shoulder, which was aspirated, then the culture on 12/29/16 was no growth, and she h as reaccumulated effusion, and was aspirated again on 01/11/17 where the specimen came back positive fo r calcium pyrophosphate crystals and a negative culture, again, as the first one on 12/29 was also neg ative, and the white count was high to 44,000, that is consistent with calcium pyrophosphate, which i s inflammatory arthritis, and if it was an infection, it would be well into the 80,000 or 100,000 cou nt. So she did have a good response with the last injection, which will help the pseudogout symptoms . Still the culture is negative. So we have to continue with the observation, as there is no eviden ce of effusion in the shoulder at this time on the left side, and we will follow her closely, but she has been afebrile, but the white count is still high, but clinically she feels better, and it does n ot look like a septic arthritis of that right shoulder at this time. Grant Bains DO cc: [id number] TT: 01/13/2017 09:20:28 Confirmation # [id number] Dictation # [id number] rakel
[2017-01-13] MEDS ORDERED: diltiaZEM 240 mg/24 Hours CD Cap PO SCH (10:00)
[2017-01-13] MEDS: Potassium Chloride 10 mEq ER Tab PO SCH (10:21)
[2017-01-13] MEDS: Meropenem 1g/NS 100mL IVPB 100 ML IVPB SCH ×2 (10:22→21:45)
[2017-01-13] MEDS: Lidocaine 5% Patch TD SCH (10:22)
[2017-01-13] MEDS ORDERED: Pantoprazole 40 mg EC Tab PO STA (11:20)
--- NOTE | 2017-01-13 12:07 | CP.PCM.PN ---
Subjective - Date & Time of Evaluation Date of Evaluation: 01/13/17 Time of Evaluation: 11:10 - Subjective Subjective: Patient feels better, no nausea, no muscle aches, right shoulder feels better, no fevers overnight. Objective - Vital Signs/Intake and Output Vital Signs (last 24 hours): Temp Pulse Resp BP Pulse Ox 97.8 F 120 H 18 114/88 96 01/13/17 05:16 01/13/17 10:21 01/13/17 05:16 01/13/17 10:22 01/13/17 05:16 Intake and Output: 01/13/17 01/13/17 06:59 18:59 Intake Total 680 Output Total 550 Balance 130 - Medications Medications: Current Medications Acetaminophen (Tylenol 325mg Tab) 650 mg PO Q4H PRN PRN Reason: Fever >100.4 F Last Admin: 01/13/17 06:52 Dose: 650 mg Alprazolam (Xanax) 0.25 mg PO BID PRN; Protocol PRN Reason: Anxiety Stop: 01/18/17 09:15 Last Admin: 01/13/17 03:54 Dose: 0.25 mg Apixaban (Eliquis) 5 mg PO BID [facility] PRN Reason: Protocol Last Admin: 01/13/17 10:20 Dose: 5 mg Atenolol (Tenormin) 50 mg PO DAILY [facility] Atorvastatin Calcium (Lipitor) 10 mg PO DIN [facility] Last Admin: 01/12/17 17:10 Dose: 10 mg Diltiazem HCl (Cardizem Cd) 240 mg PO DAILY [facility] Last Admin: 01/11/17 10:45 Dose: 240 mg Diltiazem HCl (Cardizem Cd) 240 mg PO DAILY [facility] Last Admin: 01/13/17 10:22 Dose: 240 mg Ferrous Sulfate (Feosol) 324 mg PO BID [facility] Furosemide (Lasix) 20 mg IVP DAILY [facility] Last Admin: 01/13/17 10:22 Dose: 20 mg Meropenem 1g/NS 100mL IVPB (Meropenem 1g/Ns 100ml Ivpb) 100 mls @ 100 mls/hr IVPB Q12H [facility] PRN Reason: Protocol Stop: 01/17/17 10:01 Last Admin: 01/13/17 10:22 Dose: 100 mls/hr Daptomycin 430 mg/ Sodium (Chloride) 100 mls @ 200 mls/hr IV DAILY [facility] PRN Reason: Protocol Last Admin: 01/12/17 10:48 Dose: 200 mls/hr Lidocaine (Lidoderm) 1 ea TD DAILY [facility] Last Admin: 01/13/17 10:22 Dose: 1 ea Lisinopril (Zestril) 10 mg PO DAILY [facility] Last Admin: 01/13/17 10:21 Dose: 10 mg Pantoprazole Sodium (Protonix Ec Tab) 40 mg PO 0630 [facility] Paroxetine HCl (Paxil) 20 mg PO 1800 [facility] Last Admin: 01/12/17 18:03 Dose: 20 mg Potassium Chloride (Klor-Con 10) 20 meq PO BRK [facility] Last Admin: 01/13/17 10:21 Dose: 20 meq Zolpidem Tartrate (Ambien) 5 mg PO HS PRN; Protocol PRN Reason: Insomnia Last Admin: 01/12/17 21:54 Dose: 5 mg - Labs Labs: 01/13/17 07:42 01/13/17 07:42 PT 11.8 Seconds (9.9-11.8) 01/09/17 11:30 INR 1.09 (0.93-1.08) H 01/09/17 11:30 APTT 28.9 Seconds (23.7-30.8) 01/09/17 11:30 - Constitutional Appears: Non-toxic, No Acute Distress - Head Exam Head Exam: NORMAL INSPECTION - ENT Exam ENT Exam: Mucous Membranes Moist - Neck Exam Neck Exam: absent: Lymphadenopathy, Meningismus - Respiratory Exam Respiratory Exam: Decreased Breath Sounds - Cardiovascular Exam Cardiovascular Exam: +S1, +S2 - GI/Abdominal Exam GI & Abdominal Exam: Soft. absent: Tenderness Assessment and Plan - Assessment and Plan (Free Text) Plan: Assessment Systemic Inflammatory Response Syndrome, consider sepsis secondary to complete rotator cuff tear of the right shoulder R/O infection of the effusion S/P drainage of the fluid POD #2 - patient has calcium pyrophosphate in the fluid which leans towards inflammatory arthritis Coagulase negative staph in 1 of 4 bottles R/O contamination history of asmyptomatic bacteriuria with ESBL Klebsiella and VRE Atrial fibrillation history of E. coli bacteremia, urine as the source HTN dyslipidemia obesity with BMI 31 history of uterine cancer S/P hysterectomy S/P cholecystectomy osteoarthritis GERD history of depression Plan continue Daptomycin and Merrem (day 3) pending final results of the culture of the right shoulder fluid - culture is negative x 24 hours but if it continues to be negative will d/c antibiotics; repeat blood cx is negative so far; MRI of the shoulder noted with rotator cuff tear - reviewed Ortho recommendations Will continue to follow clinically
--- NOTE | 2017-01-13 12:20 | PN ---
DATE: 01/13/2017 SUBJECTIVE: The patient remains in telemetry. The patient is feeling better. She complains of insomnia last night. Denies any chest pain, abdominal pain, rectal bleeding. Her appetite is fair. I reviewed the orthopedist's note and indicated that after review of synovial fluid, this patient has inflammatory process. PHYSICAL EXAMINATION: VITAL SIGNS: Stable. The patient is afebrile for the past 2 days. Her temperature this morning is 97.8. Her pulse runs between 100 and 120 irregular , blood pressure 114/88, respiratory rate 18. GENERAL: The patient is comfortable, sitting on the edge of bed, alert, awake, oriented. HEENT: Head is normocephalic, atraumatic. Oral mucosa is moist. NECK: Supple. LUNGS: Clear to auscultation. HEART: With irregular rhythm, rate of 123 irregular per minute. ABDOMEN: Soft, nontender, nondistended. EXTREMITIES: With no edema. DIAGNOSTIC TESTS: CBC is significant for increase of WBC trending up 16,000 this morning. Her hemoglobin improved 9.2, hematocrit 28.6. Chemistry with normal electrolytes. The patient has elevated liver enzymes since yesterday with AST 141, ALT 187, and alkaline phosphatase 143. The patient had positive stool for guaiac. Her blood cultures are negative, and preliminary synovial fluid culture is negative. ASSESSMENT: 1. History of bacteremia with Staphylococcus aureus coagulase negative, clinically improved and afebrile. The source of fever is still uncertain, possibly due to inflammatory process of the right shoulder. 2. Right shoulder synovitis, rule out septic shoulder. 3. Atrial fibrillation with improved ventricular rate with high dose of Cardizem and IV Cardizem drip. 4. Anemia with iron deficiency and positive guaiac test. 5. Hypertension. PLAN OF TREATMENT: We will follow up synovial and blood cultures. Continue Merrem and daptomycin. The patient will be maintained on Cardizem and metoprolol. We will start iron and pantoprazole for treatment of iron deficiency anemia. I will ask racetrack steward for evaluation. The patient is, however, asymptomatic. Karly Barron MD cc: [id number] TT: 01/13/2017 12:19:59 Confirmation # [id number] Dictation # [id number] jn [id number]
--- NOTE | 2017-01-13 13:55 | PN ---
DATE: 01/13/2017 REASON FOR CONSULTATION: Fever, atrial fibrillation with rapid ventricular rate, hypertension, coron jeffry artery disease, ventricular dysfunction. BRIEF CLINICAL HISTORY: A 81-year-old female with a past medical history of atrial fibrillation, sta tus post cardiac catheterization, nonobstructive coronary artery disease. Admitted with fever, sepsi s, and AFib with rapid ventricular rate. Denies any chest pain. Son is at the bedside. The patient had recently cardiac catheterization 12/28/2016 that shows nonobstructive coronary artery disease isaac ited only to LAD, 50%-55% stenosis, ejection fraction 35%-40%, nonischemic cardiomyopathy, EDP was in the range of 14. PHYSICAL EXAMINATION: VITAL SIGNS: Temperature afebrile, heart rate 120, blood pressure 114/88. HEENT: PERRLA. Extraocular muscles intact. NECK: Supple. No carotid bruits. No thyromegaly. CHEST: Clear to auscultation. HEART: S1, S2 regular. ABDOMEN: Soft. EXTREMITIES: Clubbing, cyanosis negative. BLOOD WORKUP: WBC 16.4, hemoglobin 9.8, hematocrit 28.6, platelet count 367. Chemistry shows sodium 140, potassium 4. , chloride 105, carbon dioxide 28, anion gap of 15, BUN 41, creatinine 1.2. T otal protein 7.3, albumin 3.4, albumin/globulin ratio 0.9. Elevated AST 141, 187, alkaline lanette sphatase 143. IMPRESSION: Fever, sepsis, elevated white blood cell count, admitting fever 101, now fever is going down, atrial fibrillation with rapid ventricular rate, status post cardiac catheterization, nonobstru ctive coronary artery disease, cardiomyopathy. Last catheterization done on 12/28/2016 that shows mid left anterior descending disease, otherwise nonobstructive. Cardiomyopathy, chronic atrial fibrilla tion, hypertension, hyperlipidemia, fever, sepsis. RECOMMENDATION: Continue broad spectrum antibiotic. Continue Eliquis. Continue Cardizem-CD, starte d today. We will give p.r.n. hydralazine, p.r.n. verapamil for control of the heart rate. Continue low dose beta allyson. We will follow with you. Thank you, Dr. Barron, for providing us the opportunity in taking care of the patient. I sp geri to the son, who is at bedside. Will discuss. court monitor shows heart rate goes maximum to 120, relatively stable. We will follow with you. Repeat the blood workup in the morning. So far, blood culture, 1 bottle Staph coagulase has been . Repeat blood cultures are no growth. We brandon l repeat the blood culture tomorrow morning as well as repeat the . Jimmy Garcia MD cc: [id number] TT: 01/13/2017 13:54:33 Confirmation # [id number] Dictation # [id number] en
--- NOTE | 2017-01-13 15:56 | CP.PCM.PN ---
Subjective - Date & Time of Evaluation Date of Evaluation: 01/12/17 Time of Evaluation: 15:00 - Subjective Subjective: No acute complaints ROS: denies fevers; chills; n/v; bowel/urinary changes; headaches; visual changes; SOB: CP: Objective - Vital Signs/Intake and Output Vital Signs (last 24 hours): Temp Pulse Resp BP Pulse Ox 98.7 F 140 H 18 110/75 96 01/13/17 12:00 01/13/17 14:00 01/13/17 12:00 01/13/17 12:00 01/13/17 05:16 Intake and Output: 01/13/17 01/13/17 06:59 18:59 Intake Total 680 Output Total 550 Balance 130 - Medications Medications: Current Medications Acetaminophen (Tylenol 325mg Tab) 650 mg PO Q4H PRN PRN Reason: Fever >100.4 F Last Admin: 01/13/17 06:52 Dose: 650 mg Alprazolam (Xanax) 0.25 mg PO BID PRN; Protocol PRN Reason: Anxiety Stop: 01/18/17 09:15 Last Admin: 01/13/17 03:54 Dose: 0.25 mg Apixaban (Eliquis) 5 mg PO BID BONNIE PRN Reason: Protocol Last Admin: 01/13/17 10:20 Dose: 5 mg Atenolol (Tenormin) 50 mg PO DAILY [facility] Atorvastatin Calcium (Lipitor) 10 mg PO DIN [facility] Last Admin: 01/12/17 17:10 Dose: 10 mg Diltiazem HCl (Cardizem Cd) 240 mg PO DAILY [facility] Last Admin: 01/11/17 10:45 Dose: 240 mg Diltiazem HCl (Cardizem Cd) 240 mg PO DAILY [facility] Last Admin: 01/13/17 10:22 Dose: 240 mg Ferrous Sulfate (Feosol) 324 mg PO BID [facility] Furosemide (Lasix) 20 mg IVP DAILY [facility] Last Admin: 01/13/17 10:22 Dose: 20 mg Meropenem 1g/NS 100mL IVPB (Meropenem 1g/Ns 100ml Ivpb) 100 mls @ 100 mls/hr IVPB Q12H BONNIE PRN Reason: Protocol Stop: 01/17/17 10:01 Last Admin: 01/13/17 10:22 Dose: 100 mls/hr Daptomycin 430 mg/ Sodium (Chloride) 100 mls @ 200 mls/hr IV DAILY BONNIE PRN Reason: Protocol Last Admin: 01/13/17 12:01 Dose: 200 mls/hr Lidocaine (Lidoderm) 1 ea TD DAILY BONNIE Last Admin: 01/13/17 10:22 Dose: 1 ea Lisinopril (Zestril) 10 mg PO DAILY BON[facility]IE Last Admin: 01/13/17 10:21 Dose: 10 mg Pantoprazole Sodium (Protonix Ec Tab) 40 mg PO 0630 BONNIE Paroxetine HCl (Paxil) 20 mg PO 1800 BONNIE Last Admin: 01/12/17 18:03 Dose: 20 mg Potassium Chloride (Klor-Con 10) 20 meq PO BRK BONNIE Last Admin: 01/13/17 10:21 Dose: 20 meq Zolpidem Tartrate (Ambien) 5 mg PO HS PRN; Protocol PRN Reason: Insomnia Last Admin: 01/12/17 21:54 Dose: 5 mg - Labs Labs: 01/13/17 07:42 01/13/17 07:42 PT 11.8 Seconds (9.9-11.8) 01/09/17 11:30 INR 1.09 (0.93-1.08) H 01/09/17 11:30 APTT 28.9 Seconds (23.7-30.8) 01/09/17 11:30 - Constitutional Appears: Well - Respiratory Exam Respiratory Exam: Clear to Ausculation Bilateral, NORMAL BREATHING PATTERN - Cardiovascular Exam Cardiovascular Exam: REGULAR RHYTHM, +S1, +S2. absent: Murmur - Extremities Exam Extremities Exam: Full ROM, Normal Capillary Refill, Normal Inspection. absent : Joint Swelling, Pedal Edema Assessment and Plan - Assessment and Plan (Free Text) Plan: Ms. Young is a a 81 y/o woman with pmhx significant for afib, previous ecoli bactermia; HLD, obestiy; GERD currently admitted with sepsis in setting or RTC tear of right shoulder with effusion s/p drainage. Hematology evaluated regarding anemia and need for bone marrow potentially to r/o other infectious sources. At present patient's mild anemia likely secondary in setting of sepsis physiology and appears stable Additionally, patient has been afebrile since and otherwise stable would defer a bone marrow at present for now. Lucas Castillo MD Oncology Service p: [phone]
--- NOTE | 2017-01-13 23:19 | CP.PCM.PN ---
Subjective - Date & Time of Evaluation Date of Evaluation: 01/13/17 Time of Evaluation: 23:19 - Subjective Subjective: Patient was seen at bedside because nurse called and told that the HR of patient was sustaining in the 130's. Spoke to patient with help of Amharic speaking nurse's aide on floor. She has no complaints now. Denies chest pain, sob, nausea, palpitation.Has little sweating. Medical record was reviewed. Monitor shows Atrial fibrillation with RVR and multiple PVC's. Last magnesium level was 1.5 mEq. One gram mag Walker was given.Magnesium level could still be low. This 81 year old white woman was admitted with fever, atrial fibrillation. Has PMH of atrial fibrillation ,HTN, CAD, HLD, recurrent UTI, depression, insomnia, atonic bladder, cervical cancer, cardiac catheterization, hystrectomy,appendectomy , cholecystectomy. Objective - Vital Signs/Intake and Output Vital Signs (last 24 hours): Temp Pulse Resp BP Pulse Ox 97.7 F 123 H 20 145/76 96 01/13/17 18:00 01/13/17 22:00 01/13/17 18:00 01/13/17 18:00 01/13/17 05:16 - Medications Medications: Current Medications Acetaminophen (Tylenol 325mg Tab) 650 mg PO Q4H PRN PRN Reason: Fever >100.4 F Last Admin: 01/13/17 21:47 Dose: 650 mg Alprazolam (Xanax) 0.25 mg PO BID PRN; Protocol PRN Reason: Anxiety Stop: 01/18/17 09:15 Last Admin: 01/13/17 03:54 Dose: 0.25 mg Apixaban (Eliquis) 5 mg PO BID BONNIE PRN Reason: Protocol Last Admin: 01/13/17 17:52 Dose: 5 mg Atenolol (Tenormin) 50 mg PO DAILY [facility] Atorvastatin Calcium (Lipitor) 10 mg PO DIN [facility] Last Admin: 01/13/17 17:52 Dose: 10 mg Diltiazem HCl (Cardizem Cd) 240 mg PO DAILY [facility] Last Admin: 01/11/17 10:45 Dose: 240 mg Diltiazem HCl (Cardizem Cd) 240 mg PO DAILY [facility] Last Admin: 01/13/17 10:22 Dose: 240 mg Diltiazem HCl (Cardizem) 10 mg IVP STAT STA Stop: 01/13/17 23:19 Ferrous Sulfate (Feosol) 324 mg PO BID BONNIE Last Admin: 01/13/17 17:53 Dose: 324 mg Furosemide (Lasix) 20 mg IVP DAILY BONNIE Last Admin: 01/13/17 10:22 Dose: 20 mg Meropenem 1g/NS 100mL IVPB (Meropenem 1g/Ns 100ml Ivpb) 100 mls @ 100 mls/hr IVPB Q12H BONNIE PRN Reason: Protocol Stop: 01/17/17 10:01 Last Admin: 01/13/17 21:45 Dose: 100 mls/hr Daptomycin 430 mg/ Sodium (Chloride) 100 mls @ 200 mls/hr IV DAILY BON[facility]IE PRN Reason: Protocol Last Admin: 01/13/17 12:01 Dose: 200 mls/hr Lidocaine (Lidoderm) 1 ea TD DAILY [facility] Last Admin: 01/13/17 10:22 Dose: 1 ea Lisinopril (Zestril) 10 mg PO DAILY [facility] Last Admin: 01/13/17 10:21 Dose: 10 mg Pantoprazole Sodium (Protonix Ec Tab) 40 mg PO 0630 B[facility] Paroxetine HCl (Paxil) 20 mg PO 1800 BONNIE Last Admin: 01/13/17 17:53 Dose: 20 mg Potassium Chloride (Klor-Con 10) 20 meq PO BRK BONNIE Last Admin: 01/13/17 10:21 Dose: 20 meq Zolpidem Tartrate (Ambien) 5 mg PO HS PRN; Protocol PRN Reason: Insomnia Last Admin: 01/13/17 23:08 Dose: 5 mg - Labs Labs: 01/13/17 07:42 01/13/17 07:42 PT 11.8 Seconds (9.9-11.8) 01/09/17 11:30 INR 1.09 (0.93-1.08) H 01/09/17 11:30 APTT 28.9 Seconds (23.7-30.8) 01/09/17 11:30 - Constitutional Appears: Well, No Acute Distress - Head Exam Head Exam: ATRAUMATIC, NORMAL INSPECTION, NORMOCEPHALIC - Eye Exam Eye Exam: Normal appearance - ENT Exam ENT Exam: Normal External Ear Exam - Neck Exam Neck Exam: Normal Inspection - Respiratory Exam Respiratory Exam: NORMAL BREATHING PATTERN - Cardiovascular Exam Cardiovascular Exam: Tachycardia, Irregular Rhythm. absent: JVD - GI/Abdominal Exam GI & Abdominal Exam: absent: Distended - Rectal Exam Rectal Exam: Deferred - Extremities Exam Extremities Exam: Normal Inspection - Back Exam Back Exam: NORMAL INSPECTION - Neurological Exam Neurological Exam: Alert, Oriented x3 - Psychiatric Exam Psychiatric exam: Normal Affect, Normal Mood - Skin Skin Exam: Normal Color Assessment and Plan - Assessment and Plan (Free Text) Assessment: A/P:Atrial fibrillation with RVR. HTN. CAD. Hx cardiac catheterization. HLD. UTI. Cardizem 10 mg IV now. Will cancel AM labs and will order CBC , CMP, Magnesium, Phosphorous level now. Monitor. Continue present management.
[2017-01-13 23:57] LABS: ADD MANUAL DIFF? NO
[2017-01-14 00:04] LABS: BASO # 0.03 K/mm3 (0.0-2.0); BASO % 0.2 % (0.0-3.0); EOS # 0.1 (0.0-0.7); EOS % 0.7 % (1.5-5.0); GRAN # 10.83 (1.4-6.5); GRAN % 77.6 % (50.0-68.0); HEMATOCRIT 29.9 % (36.0-48.0); LYMPH # 2.4 (1.2-3.4); LYMPH % 17.1 % (22.0-35.0); MEAN CELL VOLUME 85.9 fL (80.0-105.0); MEAN CORPUSCULAR HGB CONC 31.4 g/dl (31.0-37.0); MEAN PLATELET VOLUME 10.1 fl (7.0-11.0); MONO # 0.6 (0.1-0.6); MONO % 4.4 % (1.0-6.0); PLATELET COUNT 360 10^3/uL (120.0-450.0); RED CELL DISTRIBUTION WIDTH 15.7 % (11.5-14.5)
[2017-01-14 00:12] LABS: ALB/GLOB RATIO 0.9 (1.1-1.8); BILIRUBIN,TOTAL 0.8 mg/dL (0.2-1.3); MAGNESIUM 1.8 mg/dL (1.7-2.2); PHOSPHOROUS 4.6 mg/dL (2.5-4.5); TOTAL PROTEIN 7.2 g/dL (5.8-8.3)
[2017-01-14] MEDS ORDERED: diltiaZEM IVPB 100mg in NS 100 ML IV STA (04:19)
[2017-01-14] MEDS: diltiaZEM IVPB 100mg in NS 100 ML IV PRN ×2 (06:15→14:13)
[2017-01-14] MEDS: Pantoprazole 40 mg EC Tab PO SCH (06:26)
[2017-01-14 07:04] LABS: ALB/GLOB RATIO 0.9 (1.1-1.8); BILIRUBIN,TOTAL 0.5 mg/dL (0.2-1.3); CALCIUM 9.3 mg/dL (8.4-10.5); POTASSIUM 4.6 mmol/L (3.6-5.0); TOTAL PROTEIN 7.4 g/dL (5.8-8.3)
[2017-01-14 07:08] LABS: TROPONIN I 0.02 ng/mL
[2017-01-14 07:21] LABS: MEAN CELL VOLUME 85.7 fL (80.0-105.0); MEAN CORPUSCULAR HEMOGLOBIN 27.1 pg (25.0-35.0); MEAN CORPUSCULAR HGB CONC 31.7 g/dl (31.0-37.0); MEAN PLATELET VOLUME 10.1 fl (7.0-11.0); RED CELL DISTRIBUTION WIDTH 15.5 % (11.5-14.5); WHITE BLOOD COUNT 13.6 10^3/ul (4.5-11.0)
--- NOTE | 2017-01-14 08:21 | CON ---
DATE: 01/13/2017 SUBJECTIVE: This is a 81-year-old patient with a past medical history of recent AFib, hypertension, dyslipidemia. Recently discharged from the hospital following treatment for atrial fibrillation and urinary tract infection. Recently was again admitted with weakness and fever. The patient denies an y abdominal pain, diarrhea. GI consult to evaluate iron deficiency anemia. This patient has a histo ry of iron deficiency anemia. 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 The patient subsequently had of colonoscopy. The patient denies any his tory of bleeding per rectum, melena. No vomiting blood. The patient denies any abdominal pain. HISTORY OF PRESENT ILLNESS: Other as about, history of hypertension, anxiety, depression. FAMILY HISTORY: Both parents were noncontributory. SOCIAL HISTORY: Denied smoking. No alcohol. REVIEW OF SYSTEMS: Positive as above. Other 14 point systems reviewed and negative. The patient al so has right shoulder discomfort. Patient was seen by Dr. Bains, orthopedist, had a tapping d one in the past. PHYSICAL EXAMINATION: GENERAL: The patient is lying on the bed, not in acute distress. VITAL SIGNS: Temperature is 97.7, blood pressure is 127/86, pulse 118. Respirations 20, O2 saturati on 96%. HEENT: Atraumatic, anicteric. NECK: Supple. HEART: S1, S2 heard. Irregular. LUNGS: Bilateral air entry present. ABDOMEN: Soft. There is no mass palpable. No tenderness. EXTREMITIES: No edema. No cyanosis. NEUROLOGIC: Alert, oriented. Moves all the extremities. LABORATORY DATA: Hemoglobin 9.4, hematocrit 29.9. WBC is 14, platelets were 360. Chemistry showed a BUN 41, creatinine 1.3. This 81-year-old patient admitted with fever. Other as above, history of , cardiac cathet erization, mild coronary disease. SURGICAL HISTORY: Positive for hysterectomy, 20 years ago with cervical cancer status post radiation therapy. ALLERGIES: No known drug allergies. FAMILY HISTORY: Otherwise, noncontributory. SOCIAL HISTORY: Denies smoking. No alcohol. REVIEW OF SYSTEMS: Positive as above. A 14-point review of systems was limited. LABORATORY DATA: Hemoglobin is 9.4, hematocrit 29.9. WBC is 14, platelets of 360, BUN 41, creatinin e 1.3. AST 72, ALT 162, alkaline phosphatase 140. They were normal when the patient was admitted IMPRESSION: 1. This 81-year-old patient admitted with fever, history of atrial fibrillation with new onset. The patient has been on . Found to be iron deficiency anemia. Stool for occult blood positive. T his patient having 2002 years ago had a workup done and upper GI endoscopy showed gastric erosions an d colonoscopy was incomplete due to the sigmoid stricture. The patient subsequently had colonoscopy, which showed small sigmoid colon stricture. No mass noted otherwise. The patient did have an upper diskectomy, done at the [facility] and a CT scan done at the time was also told to be nega tive. 2. Patient also has elevated liver enzymes. The patient's initial lab work was essentially unremark able. LFTs initially on admission was unremarkable. Would request. RECOMMENDATIONS: 1. Followup of the hemoglobin and hematocrit. 2. Empiric therapy with PPI. 3. Patient has a history of status post cholecystectomy and the likely cause of the LFTs could be du e to drug induced. Would request for a baseline hepatitis profile and also ultrasound scan of the ab domen. We will follow up the LFTs. The patient would benefit from upper GI endoscopy. I did discus s with Dr. Ramirez regarding this patient. The reasonable thing is to consider endoscopy. If the pat ient shows an active source of blood loss like ulcerations then we need to consider changing the Eliq uis to Coumadin. Will discussed with chief librarian work with blind ava and then schedule further endoscopy. Thank you very much for allowing us to participate in the care of the patient. Pieter Bautista MD cc: [id number] TT: 01/14/2017 05:35:19 Confirmation # [id number] Dictation # [id number] rakel
[2017-01-14] MEDS ORDERED: Ergocalciferol 50,000 Intl Units Cap PO SCH (09:30)
[2017-01-14] MEDS: Lidocaine 5% Patch TD SCH (10:27)
[2017-01-14] MEDS: Potassium Chloride 10 mEq ER Tab PO SCH (10:28)
--- NOTE | 2017-01-14 13:01 | PN ---
DATE: 01/14/2017 The patient is seen in the patient's room in 269, bed 2. She is feeling better. No fevers, no chill s. The patient's daughter is at the bedside. Fevers are down. PHYSICAL EXAMINATION: VITAL SIGNS: Temperature is 97, blood pressure is 140/90, respiratory rate of 16. HEENT: Unremarkable. NECK: Supple. LUNGS: Have decreased breath sounds. HEART: Normal S1, S2. ABDOMEN: Soft, nontender. Review of the orders reveals the patient to be on daptomycin and meropenem. The meropenem requires r calderon, which I will do so. ASSESSMENT AND PLAN: A 81-year-old, sepsis secondary to complete rotator cuff tear in the right shou lder. All cultures have been negative thus far consistent with a pseudogout with a positive calcium pyrophosphate. We will continue the antibiotics for now pending final culture results of daptomycin and meropenem. Case discussed with the patient's daughter at length. We will follow with you. Puneet David MD cc: [id number] TT: 01/14/2017 13:00:23 Confirmation # [id number] Dictation # [id number] en
[2017-01-14] MEDS: Meropenem 1g/NS 100mL IVPB 100 ML IVPB SCH ×2 (14:14→22:07)
--- NOTE | 2017-01-14 14:14 | PN ---
DATE: 01/14/2017 Seen and examined at the bedside earlier today. No reports of any bleeding per rectum or acute overn ight events. Denies any nausea, vomiting, shortness of breath, chest pain or abdominal pain. Waitin g to go for abdominal ultrasound. VITAL SIGNS: Temperature is 97.7, blood pressure 145/90, pulse 144, respirations 20, 96% on room air . LABORATORIES: WBC 13.6, H and H is 9.5 and 30.0, platelets are 377. Sodium 142, K 4.6, BUN is 38, c reatinine is 1.2. LFTs: Total bilirubin is 0.5, AST 73, ALT 164, alkaline phosphatase is 156. This remains about the same, no change. Hepatitis panel is negative. The patient went for abdominal ult rasound, pending final report. PHYSICAL EXAMINATION: HEENT: Sclerae anicteric. NECK: Supple. CARDIAC: S1, S2. LUNG SOUNDS: With decreased breath sounds, but no rales or wheeze. ABDOMEN: With bowel sounds, soft, nontender. No rebound or guarding. EXTREMITIES: No edema. NEUROLOGIC: Awake, alert, and oriented. ASSESSMENT: This is a 81-year-old female with a history of hypertension, dyslipidemia, admitted with fever, history of cardiac catheterization. Also, history of atrial fibrillation. Noted to have ane reyes and is guaiac positive. The patient did have endoscopy a few years ago, found to have gastric er osions. Colonoscopy was incomplete secondary to sigmoid stricture. Went for virtual colonoscopy. N o mass was noted. It did show colon stricture. The patient is noted to have elevated liver enzymes. Rule out if this could be secondary to hepatic congestion, medication. The patient went for an abd ominal ultrasound. The report is pending. PLAN: We will plan for a diagnostic endoscopy to rule out any gastrointestinal bleed or malignancy o r arteriovenous malformations. The patient is off Eliquis, last dose was on the 9th. She is on IV a ntibiotics of meropenem. Continue Protonix. She is getting iron and patient is on Cardizem drip and on IV antibiotics of daptomycin. Discussed with the patient and her daughter at the bedside regardi ng diagnostic endoscopy for the gastrointestinal bleed. Agreed for procedure. Will be n.p.o. after midnight. The patient was seen and case discussed with Dr. Bautista. Discussed with nursing staff. Diana MCFARLAND cc: [phone] TT: 01/14/2017 14:13:31 Confirmation # [id number] Dictation # [id number] en
--- NOTE | 2017-01-14 14:30 | PN ---
DATE: 01/14/2017 The patient was seen and evaluated earlier today. The patient's daughter was at bedside. PHYSICAL EXAMINATION: ABDOMEN: Soft. There is no mass. No tenderness. LABORATORY DATA: Hemoglobin 9.5, hematocrit 30. BUN 38, creatinine 1.2. The patient is tolerating the diet. No abdominal pain. VITAL SIGNS: Temperature is 97.7. Blood pressure is 145/90. ABDOMEN: Soft. There is no tenderness. LABORATORY DATA: Hemoglobin 9.5, hematocrit 30.0, WBC 13.6. IMPRESSION: This is a 81-year-old patient admitted with shortness of breath, AFib. The patient was on Eliquis, found to be anemic, guaiac positive. GI consult was requested to evaluate. Did have a d etailed discussion with Dr. Pacheco. The plan is to do an endoscopy tomorrow. This patient has bee n scheduled for that. Then, depending upon the findings, we can decide about the type of anticoagula tion to continue. The patient did have an ultrasound done which showed status post cholecystectomy. Common bile duct m easured 6.7 mm. Normal. IMPRESSION: This 81-year-old patient with new onset atrial fibrillation was on Eliquis, which has b een on hold now, found to be anemic. This is a 81-year-old patient with anemia, new onset atrial fibrillation, guaiac positive stool. The patient had a GI workup done in 2014 and found to have a sigmoid stricture. CT virtual colonoscopy showed a small stricture. No lesions noticed. The patient does have some epigastric discomfort, and the plan is to continue the PPI, schedule for an EGD tomorrow. Eliquis is now on hold. Based on e endoscopy findings, we can decide about the type of anticoagulation. Thank you very much for allowing us to participate in the care of the patient. Pieter Bautista MD cc: [id number] TT: 01/14/2017 14:29:18 Confirmation # [id number] Dictation # [id number] rakel
[2017-01-14] MEDS ORDERED: Digoxin 500 mcg/2ml (0.5 mg/2ml) Inj IVP ONE ×2 (14:49→18:00)
--- NOTE | 2017-01-14 15:00 | US ---
HISTORY: Abnormal LFT, r/o stone disease COMPARISON: CT abdomen and pelvis from 10/08/2016 TECHNIQUE: Grayscale imaging was performed. FINDINGS: LIVER: Measures 17.1 cm. Normal echogenicity of the liver parenchyma. No mass. No intrahepatic bile duct dilatation. GALLBLADDER: Surgically absent. COMMON BILE DUCT: Measures 7 mm. No stones. No dilatation. PANCREAS: Unremarkable as visualized. No mass. No ductal dilatation. RIGHT KIDNEY: Measures 10.3cm. Normal echogenicity. No stone. There is moderate hydronephrosis. LEFT KIDNEY: Measures 9.6cm. Normal echogenicity. No stone. There is moderate hydronephrosis. There is a 3.2 x 3.0 x 2.7 cm cyst in the interpolar region and 2.2 x 2 mm 1.8 x 2.4 x 2.4 cm cyst in the lower pole. SPLEEN: Normal in size and contour. No mass. AORTA: No aneurysmal dilatation. IVC: Unremarkable. OTHER FINDINGS: None. IMPRESSION: 1. Mild hepatomegaly. 2. Moderate bilateral hydronephrosis and distention of bilateral renal pelvis.
--- NOTE | 2017-01-14 15:53 | PN ---
DATE: 01/14/2017 REASON FOR CONSULTATION: Fever, atrial fibrillation with rapid ventricular rate, hypertension, coron jeffry artery disease, nonischemic cardiomyopathy. BRIEF CLINICAL HISTORY: A 81-year-old female with a past medical history significant for atrial fibr illation, status post cardiac catheterization, nonobstructive coronary artery disease. Admitted with fever, sepsis, AFib with rapid ventricular rate. Denies any chest pain. Daughter is at the bedside . Discussed the patient's finding and progression of the disease as well as discharge planning. The patient had a cardiac catheterization on 12/28/2016 that shows nonobstructive coronary artery disease , only limited to LAD, 50%-55% stenosis, ejection fraction 35%-40%, nonischemic cardiomyopathy, EDP w as in the range of 14. The patient is scheduled for endoscopy today, so left her on Cardizem IV. PHYSICAL EXAMINATION: VITAL SIGNS: Temperature afebrile, heart rate 97, blood pressure 125/56. HEENT: PERRLA. Extraocular muscles intact. NECK: Supple. No carotid bruits. No thyromegaly. CHEST: Clear to auscultation. HEART: S1, S2 regular. ABDOMEN: Soft. EXTREMITIES: Clubbing, cyanosis negative. BLOOD WORKUP: WBC 13. , hemoglobin 9. , hematocrit 30.0, platelet count 377. Chemistry show s sodium 140, potassium 4.3, chloride 104, carbon dioxide 26, anion gap of 7, BUN 38, creatinine 1.2. IMPRESSION: Fever, sepsis, possible urinary tract infection, atrial fibrillation with rapid ventricu lar rate, scheduled for endoscopy, cardiomyopathy, ejection fraction 30%-35%, nonischemic cardiomyopa thy, status post cardiac catheterization, nonobstructive coronary artery disease, persistent atrial f ibrillation. RECOMMENDATION: The patient is scheduled for endoscopy today. We will leave her on IV Cardizem, sta rted last night again. Avoid nephrotoxic medication. We will give 2 doses of digoxin to control the heart rate. Continue beta allyson. We will follow with you. Thank you, Dr. Barron, for providing us the opportunity in taking care of the patient. We w ill continue IV digoxin so patient can have endoscopy tomorrow. Once the patient has endoscopy done, we will switch over to p.o. We will follow with you. Thank you, Dr. Barron, for providing us the opportunity in taking care of the patient. We w ill give the 2 doses of digoxin to slow the heart rate. The patient's heart rate is 140 on Cardizem. Jimmy Garcia MD cc: [id number] TT: 01/14/2017 15:26:00 Confirmation # [id number] Dictation # [id number] en
[2017-01-14 18:42] VITALS: PULSE 104
[2017-01-14] MEDS ORDERED: diltiaZEM IVPB 100mg in NS 100 ML IV PRN (20:51)
--- NOTE | 2017-01-14 22:53 | PN ---
DATE: 01/14/2017 SUBJECTIVE: The patient was seen at bedside this morning. She denies any new symptoms. She complains of some fatigue. Her sleep improved. She denies any abdominal pain or active rectal bleeding. She complains of some discomfort in the right shoulder, but overall pain in her right shoulder improved. PHYSICAL EXAMINATION: VITAL SIGNS: She is afebrile. Temperature 97.7, heart rate is irregular at 145 per minute, blood pressure 134/88, respiratory rate 20, oxygen saturation 96 % on room air. GENERAL: She is comfortable in bed, alert, awake, oriented. HEENT: Head is normocephalic, atraumatic. Oral mucosa is moist. NECK: Supple. LUNGS: Clear to auscultation. HEART: With irregular rhythm, rate of 140 per minute. ABDOMEN: Soft, nontender, nondistended. EXTREMITIES: With no edema. There is tenderness of the right anterior shoulder , but increased and improved range of motion. DIAGNOSTIC TESTS: CBC significant for WBC 13.6, which is slightly trending down. Her hemoglobin is stable at 9.5, hematocrit 30.0. Chemistry showed normal electrolytes. Her renal function showed some improvement with BUN 38 and creatinine 1.2. She has persistently elevated liver enzymes which are trending down. Blood cultures are negative and synovial fluid culture is still no growth after 3 days. ASSESSMENT: 1. History of bacteremia with Staphylococcus aureus with negative followup cultures. 2. Right shoulder synovitis, most probably inflammatory etiology; however, must rule out septic shoulder. 3. Atrial fibrillation with rapid ventricular response. The patient asymptomatic. 4. Anemia with iron deficiency with positive guaiac test. 5. Abnormal, elevated liver enzymes. 6. Hypertension. PLAN OF TREATMENT: Case was discussed with claim taker. The patient on Eliquis for atrial fibrillation, at risk for GI bleeding. Eliquis was on hold for further evaluation. The patient will be scheduled for endoscopy on Saturday , will have abdominal ultrasound for evaluation of liver and common bile duct due to elevated liver enzymes. The patient will be maintained on current IV antibiotics until we have final cultures. The patient also will be maintained on Cardizem IV drip to control better her ventricular rate. Continue beta allyson. We will discuss with orchid transplanter and claim taker further anticoagulation treatment. The patient may need to be switched to Coumadin after endoscopy. Karly Barron MD cc: [id number] TT: 01/14/2017 22:52:27 Confirmation # [id number] Dictation # [id number] ln MTDD
[2017-01-15] MEDS: Pantoprazole 40 mg EC Tab PO SCH (06:07)
[2017-01-15 07:51] LABS: HEMATOCRIT 31.9 % (36.0-48.0); MEAN CELL VOLUME 86.4 fL (80.0-105.0); MEAN CORPUSCULAR HEMOGLOBIN 27.1 pg (25.0-35.0); MEAN CORPUSCULAR HGB CONC 31.3 g/dl (31.0-37.0); MEAN PLATELET VOLUME 10.2 fl (7.0-11.0); RED CELL DISTRIBUTION WIDTH 15.4 % (11.5-14.5); WHITE BLOOD COUNT 11.8 10^3/ul (4.5-11.0)
[2017-01-15 07:59] LABS: ALB/GLOB RATIO 0.9 (1.1-1.8); BILIRUBIN,TOTAL 0.6 mg/dL (0.2-1.3); CALCIUM 9.3 mg/dL (8.4-10.5); MAGNESIUM 1.7 mg/dL (1.7-2.2); PHOSPHOROUS 4.1 mg/dL (2.5-4.5); POTASSIUM 4.4 mmol/L (3.6-5.0); TOTAL PROTEIN 7.5 g/dL (5.8-8.3)
[2017-01-15] MEDS: Potassium Chloride 10 mEq ER Tab PO SCH (08:38)
[2017-01-15] MEDS ORDERED: Dextrose 5%/0.9% NS 1,000 ML IV SCH (09:30)
--- NOTE | 2017-01-15 10:18 | PN ---
DATE: 01/15/2017 The patient is feeling better. The patient denies any abdominal pain, rectal bleeding, nausea, vomiting. Her right shoulder pain has improved also. VITALS: Stable, she is afebrile. Temperature 98.2, pulse 63 irregular, blood pressure 145/54, respiratory rate 18. The patient is alert, awake, oriented, comfortable in bed. HEAD: Normocephalic, atraumatic. Oral mucosa is moist. NECK: Supple. LUNGS: Clear to auscultation. HEART: With irregular rhythm, rate controlled at 80 per minute. ABDOMEN: Soft, nontender, nondistended. EXTREMITIES: Right shoulder with some tenderness on palpation of anterior aspect. Improved range of motion. DIAGNOSTIC TESTS: CBC with WBC 11.8, hemoglobin 10, stable. Chemistry: Normal electrolytes, improving renal function with BUN 35, creatinine 1.2. Liver enzymes are also trending down. Her cultures are all negative. ASSESSMENT: 1. Right shoulder synovitis, probably inflammatory etiology. Blood cultures and synovial fluid cultures negative. 2. New anemia with iron deficiency, with positive guaiac test. Must rule out gastrointestinal bleeding. 3. Atrial fibrillation with improved ventricular rate. 4. Elevated liver enzymes, clinically improving. 5. Hypertension. PLAN OF TREATMENT: The patient will be going for endoscopy today for evaluation of the source of GI bleeding. Eliquis is on hold for today. I discussed case with Dr. Garcia. The patient will need to resume either Eliquis or Coumadin after endoscopy. Will continue current antibiotic regimen therapy with daptomycin and Merrem. Continue Cardizem drip and beta allyson for now. Add IV fluids for hydration. Karly Barron MD cc: 154 TT: 01/15/2017 10:17:45 Confirmation # [id number] Dictation # [id number] jn MTDD
[2017-01-15] MEDS ORDERED: diltiaZEM IVPB 100mg in NS 100 ML IV PRN (10:50)
[2017-01-15] MEDS: Meropenem 1g/NS 100mL IVPB 100 ML IVPB SCH (11:11)
[2017-01-15] MEDS: Lidocaine 5% Patch TD SCH (11:11)
--- NOTE | 2017-01-15 11:16 | PN ---
DATE: 01/15/2017 REASON FOR CONSULTATION AND FOLLOWUP: A-fib with rapid ventricular rate, hypertension, coronary jacy ry disease, nonischemic cardiomyopathy, sepsis, UTI. BRIEF CLINICAL HISTORY: A 81-year-old female with past medical history significant for atrial fibril lation, status post cardiac catheterization, nonobstructive coronary artery disease, admitted fever, sepsis, A-fib with rapid ventricular rate. The patient went back again into rapid rate and is n.p.o. for endoscopy today, so left her on 5 mL of Cardizem so procedure can be completed. After this, we will change to p.o., discussed with Dr. Pacheco and discussed with the patient's daughter. PHYSICAL EXAMINATION: VITAL SIGNS: Temperature afebrile, heart rate 63, blood pressure 145/54. HEENT: PERRLA. Extraocular muscles intact. NECK: Supple. No carotid bruits. No thyromegaly. CHEST: Clear to auscultation. HEART: S1, S2 regular. ABDOMEN: Soft. EXTREMITIES: Clubbing and cyanosis negative. LABORATORY DATA: Blood workup as follows: WBC 11.8, hemoglobin 10, hematocrit 31.9, platelet count 391. Chemistry shows sodium 140, potassium 4.0, chloride 102, carbon dioxide 28, anion gap of 16, BU N 37, creatinine 1.2. IMPRESSION: Cardiomyopathy, nonischemic, status post cardiac catheterization, nonobstructive coronar y artery disease, atrial fibrillation with rapid ventricular rate. Now, rate is well controlled. Ch ronic atrial fibrillation, fever, sepsis, possible urinary tract infection, status post cardiac meghan terization, nonobstructive coronary artery disease. RECOMMENDATIONS: The patient is scheduled for endoscopy, is cleared to go from cardiology point of v iew, leave on Cardizem 5 mL. After endoscopy, the patient will be changed to p.o. verapamil. Avoid nephrotoxic medication. Two doses of digoxin were given. Rate is well controlled. Discussed with Oliver Pacheco. The patient upon discharge probably will be resumed back on Eliquis. We will follow. Thank you, Dr. Pacheco, for providing us the opportunity in taking care of the patient. Jimmy Garcia MD cc: [id number] TT: 01/15/2017 11:16:01 Confirmation # [id number] Dictation # [id number] tn
--- NOTE | 2017-01-15 11:41 | PN ---
DATE: 01/15/2017 The patient is in bed in no acute distress, nontoxic. No fevers and chills. He was seen earlier thi s morning in room 269, bed 2. PHYSICAL EXAMINATION: VITAL SIGNS: Temperature is 98. Blood pressure is 140/50, respiratory rate of 18. HEENT: Unremarkable. NECK: Supple. LUNGS: Have decreased breath sounds. HEART: Normal S1, S2. ABDOMEN: Soft. LABORATORY EXAMINATION: Reveals a white count of 11,800, hemoglobin of 10. Chemistries reveal the B UN of 35, creatinine of 1.5. The patient's procalcitonin is reported to be less than 0.05. Urinalys is is noted. The synovial fluid results are noted, and the cultures at this time reveal the synovial culture is no-growth at [address] Pacheco's note is reviewed. ASSESSMENT AND PLAN: A 81-year-old female with sepsis secondary to complete rotator cuff tear in rig ht shoulder. Culture is negative, also consistent with pseudogout with a positive calcium pyrophosph ate. We will discontinue daptomycin and meropenem, and complete with 7 days of p.o. doxycycline. Ca se discussed with the patient's daughter yesterday at length. Puneet David MD cc: 350 TT: 01/15/2017 11:41:00 Confirmation # [id number] Dictation # [id number] rakel
[2017-01-15] MEDS ORDERED: Lactated Ringer's 1,000 ML IV SCH (15:30)
[2017-01-15] MEDS ORDERED: Propofol 10 mg/ml Inj (20 ML) ONE (16:01)
[2017-01-16] MEDS: Pantoprazole 40 mg EC Tab PO SCH (06:41)
[2017-01-16 07:26] LABS: HEMATOCRIT 27.6 % (36.0-48.0); MEAN CELL VOLUME 87.1 fL (80.0-105.0); MEAN CORPUSCULAR HEMOGLOBIN 27.1 pg (25.0-35.0); MEAN CORPUSCULAR HGB CONC 31.2 g/dl (31.0-37.0); MEAN PLATELET VOLUME 9.8 fl (7.0-11.0); RED CELL DISTRIBUTION WIDTH 15.4 % (11.5-14.5); WHITE BLOOD COUNT 8.5 10^3/ul (4.5-11.0)
[2017-01-16 07:32] LABS: INR 1.07 (0.93-1.08)
[2017-01-16 07:46] LABS: ALB/GLOB RATIO 0.9 (1.1-1.8); ALKALINE PHOSPHATASE 133 U/L (38-133); ALT/SGPT 84 U/L (7-56); AST/SGOT 32 U/L (15-39); BILIRUBIN,TOTAL 0.5 mg/dL (0.2-1.3); BLOOD UREA NITROGEN 29 mg/dL (7-21); CALCIUM 8.7 mg/dL (8.4-10.5); CARBON DIOXIDE 27 mmol/L (21-33); CHLORIDE 102 mmol/L (98-107); GFR AFRICAN-AMERICAN > 60; GLUCOSE,RANDOM 114 mg/dL (70-110); POTASSIUM 4.1 mmol/L (3.6-5.0); SODIUM 138 mmol/L (132-148); TOTAL PROTEIN 6.5 g/dL (5.8-8.3)
[2017-01-16] MEDS: diltiaZEM 240 mg/24 Hours CD Cap PO SCH (09:12)
[2017-01-16] MEDS: Lidocaine 5% Patch TD SCH (09:13)
[2017-01-16] MEDS: Potassium Chloride 10 mEq ER Tab PO SCH (09:13)
--- NOTE | 2017-01-16 09:14 | PN ---
DATE: 01/16/2017 REASON FOR CONSULTATION AND FOLLOWUP: A-fib, rapid ventricular, now converted to normal sinus, mary ann ating Plavix, paroxysmal atrial fibrillation, hypertension, coronary artery disease, nonischemic card iomyopathy, sepsis, UTI. BRIEF CLINICAL HISTORY: This is a 81-year-old female with past medical history significant for atria l fibrillation, paroxysmal, status post cardiac catheterization, nonobstructive coronary artery disea se, admitted with fever, sepsis, A-fib with rapid rate. The patient converted now this morning to no rmal sinus on p.o. Cardizem. Yesterday, had endoscopy done, possible small ulcer noted. I discussed with the daughter. PHYSICAL EXAMINATION: VITAL SIGNS: Temperature afebrile, heart rate 65, blood pressure 135/58. HEENT: PERRLA. Extraocular muscles intact. NECK: Supple. No carotid bruits. No thyromegaly. CHEST: Clear to auscultation. HEART: S1, S2 regular. ABDOMEN: Soft. EXTREMITIES: Clubbing and cyanosis negative. LABORATORY DATA: Blood workup as follows: WBC 8.5, hemoglobin 8.6, hematocrit 27.6, platelet count 333. Chemistry shows sodium 130, potassium 4.0, chloride 102, carbon dioxide 27, anion gap of 13, BU N 29, creatinine 1.0. IMPRESSION: Urinary tract infection, sepsis, anemia, paroxysmal atrial fibrillation, now converted t o normal sinus, status post cardiac catheterization, nonobstructive coronary artery disease, cardiomy opathy, nonischemic; status post endoscopy, possible small ulcer, was on Eliquis, on hold. RECOMMENDATION: The patient is already on Cardizem, continue Cardizem p.o. started at 2:40 this morn ing. The patient was on Coumadin started by Dr. Pacheco. We will discontinue IV fluid and get read y for discharge, followup with Dr. Pacheco. Yesterday, discussed with Dr. Pacheco and depending up on the GI finding, there is a small ulcer and the patient can tolerate Coumadin, we will continue bec ause the patient goes back and forth A-fib. The patient was at home last time discharged on Eliquis, but because of ulcer, Eliquis was discontinued and Coumadin started. We will follow with you. We w ill repeat EKG to assess rhythm. Jimmy Garcia MD cc: [id number] TT: 01/16/2017 09:13:25 Confirmation # [id number] Dictation # [id number] tn
--- NOTE | 2017-01-16 11:09 | PN ---
DATE: 01/16/2017 The patient is seen early this morning, in no acute distress, nontoxic. No fevers. PHYSICAL EXAMINATION: VITAL SIGNS: Temperature is 98. Blood pressure is 120/70, respiratory rate of 16. HEENT: Unremarkable. NECK: Supple. LUNGS: Have decreased breath sounds. HEART: Normal S1, S2. ABDOMEN: Soft. LABORATORY EXAMINATION: Reveals the patient to have a white count of 8.5 and sed rate of 72. Hemogl obin is 8.6, platelets of 333. Chemistries reveal the BUN of 29, creatinine of 1.0. The procalciton in is less than 0.05. Currently, the patient's medications include the patient to be on p.o. doxycycline. ASSESSMENT AND PLAN: A 81-year-old female with sepsis secondary to complete rotator cuff tear in the right shoulder. Culture is negative, also consistent with pseudogout, and now on p.o. doxycycline. The patient also had an esophagogastroduodenoscopy and was found to have gastric erosions and gastri c ulcers. We will follow with you. Puneet David MD cc: 350 TT: 01/16/2017 11:08:13 Confirmation # [id number] Dictation # [id number] jn
--- NOTE | 2017-01-16 12:30 | PN ---
DATE: 01/16/2017 Seen and examined at the bedside earlier today. The patient's daughter is at the bedside. No compla ints of nausea, vomiting or abdominal pain. She did have bowel movement. No bleeding. Went for an endoscopy yesterday, found to have some gastric ulcer and reflux esophagitis. No biopsies obtained a s the patient was on anticoagulant. No acute overnight events reported. VITAL SIGNS: Temperature is 98.2, blood pressure 124/57, pulse rate is 55, respirations 19, 95 on na lisa cannula. LABORATORY DATA: WBC 8.5, the hemoglobin is 8.6, hematocrit is 27.6, platelet is 338. PT is 11.6, I NR is 1.07. Sodium 138, K is 4.1, BUN is 29, creatinine is 1.0. Total bilirubin 0.5, AST 32, ALT 84 , alkaline phosphatase is 133. This is improving. PHYSICAL EXAMINATION: HEENT: Sclerae are anicteric. NECK: Supple. CARDIAC: S1, S2. LUNGS: Sounds are clear. ABDOMEN: With bowel sounds, soft, nontender. No rebound or guarding. EXTREMITIES: No edema. NEUROLOGIC: Awake, alert, and oriented. ASSESSMENT: This is a 81-year-old female with history of atrial fibrillation on anticoagulant. The patient was noted to have anemia with iron deficiency and positive guaiac. She went for an endoscopy yesterday, found to have reflux esophagitis and gastric ulcer and also noted to have elevated liver enzymes. She did go for an abdominal ultrasound which showed hepatomegaly, common bile duct was 7 mm . No stones or dilatation. Found to have bilateral moderate hydronephrosis of the right and left ki dneys. Her liver function tests are improving, may be secondary to hepatic congestion. The patient also has right shoulder synovitis. Other comorbidity is hypertension. PLAN: The patient is going to start up on Coumadin. We will monitor for GI bleed. Her hemoglobin l ooks she dropped about 2 grams compared to yesterday. The patient was on IV fluids, is no longer on this. We will request a repeat H and H around 2:00 p.m. There are no signs of active bleeding. Con tinue Protonix 40 daily. She is also on iron supplements of ferrous sulfate. She is on oral antibio tics of doxycycline and starting on Coumadin tonight. I spoke to the daughter and the patient at the bedside. The patient did receive Coumadin last night as well. The patient was seen and case discus sed with Dr. Bautista. Diana MCFARLAND cc: 451 TT: 01/16/2017 12:29:56 Confirmation # [id number] Dictation # [id number] tn
[2017-01-16 13:50] LABS: HEMATOCRIT 29.3 % (36.0-48.0)
--- NOTE | 2017-01-16 21:36 | PN ---
DATE: 01/16/[address] Castillo. SUBJECTIVE: The patient is a 81-year-old female admitted via the Emergency Room after previous [facility] with persistent diarrhea now modestly improved with atrial fibrillation , with a controlled rate, now on Coumadin with Eliquis now being held as she has had an endoscopy, wh ich showed gastric erosions and ulcerations. She is seen at the bedside with her daughter. She is o therwise in no acute distress at this time. PHYSICAL EXAMINATION: VITAL SIGNS: Temperature 98.3, pulse 54, respirations 20, blood pressure 138/57 with a pulse ox 95%. HEENT: Unremarkable. NECK: Supple. HEART: Regular rate. LUNGS: Clear. ABDOMEN: Soft, nontender. EXTREMITIES: No edema. SKIN: Warm, dry and clear. NEUROLOGIC: Awake, alert, and oriented x 3. LABORATORY DATA: The patient's labs were done with a white blood cell count of 8.5, hemoglobin 8.6, repeated at 9.0, hematocrit 27.6, repeated at 29.3, platelet count 333,000. Chem metabolic panel davian wing a BUN of 29 with a creatinine of 1.0 with an ALT of 84. Otherwise, normal chem metabolic panel. Her hepatitis A, B, C testing was negative. Her INR was 1.07 this morning. The patient did have an EGD done yesterday, which showed hiatal hernia, gastric erosions, gastric ulc ers, esophagitis, Dr. Bautista's report. ASSESSMENT: For this patient is that of gastric erosions, gastric ulcer, esophagitis, atrial fibrill ation restarting anticoagulation, diarrhea, sepsis, rotator cuff tear on the right, anemia, history o f arteriosclerotic cardiovascular disease. PLAN: As per Dr. Pacheco to restart her Coumadin along with monitoring clinically and with labs wit h consideration for transfusion for her anemic indices with PPI continuing as per Dr. Bautista. We w ill monitor clinically and with labs. Felice Cunningham MD cc: 411 TT: 01/16/2017 21:36:29 Confirmation # [id number] Dictation # [id number] cn
--- NOTE | 2017-01-16 23:05 | PN ---
DATE: 01/16/2017 HISTORY OF PRESENT ILLNESS: A 81-year-old unfortunate female who was admitted for shoulder pain, at the time found to have a torn rotator cuff and inflammatory effusion, at the same time also noted to have atrial fibrillation with rapid ventricular rate just controlled over the last day, history of new onset anemia and now suspected pseudogout by Dr. David under the supervision of Dr. Bains for her shoulder tendinopathy under the supervision of Dr. Bautista for recent noted esophageal erosions and gastric ulcer as a possible cause of stool guaiac positive, recent drop of 2 grams in her hemoglobin, currently being advised through Dr. Castillo and just seen today by Dr. Cunningham, hypertension, elevated liver enzymes. The patient is mostly Cam[place]onian speaking, but is always accompanied in her room by her daughter, the social media intern, and we have communicated through with her. She is anxious to go home, but given the recent noted drop in hemoglobin, it is requested she remained 1 more day. Because of the atrial fibrillation, she had been on Eliquis, which was stopped and is on Coumadin that is going to plan to be continued for 2 weeks from our understanding and then reevaluation. The earlier note from Dr. Garcia clears her for the continued Coumadin in preparation for her discharge. Dr. David switched her over to oral doxycycline and Dr. Bautista's recommendations and latest evaluation were appreciated. She has had multiple hospitalizations since the beginning of this year, one of which resulted in an appendectomy. PHYSICAL EXAMINATION: VITAL SIGNS: This morning, her vitals are excellent. Her weight is listed as 152, pulse rate is 55, remarkably improved from the past. Blood pressure 124/57 , temperature of 98.1 with no peaks occurring over the last 24 hours. O2 sat is listed as 95%. GENERAL: She is alert and oriented and able to give us her symptoms reliably. Again, the daughter is serving as the pheresis nurse when we have an issue but most of the time the daughter is able to answer as she has been present throughout. She is alert and oriented to all spheres and offers only the complaint of the limitation of motion on the right shoulder, otherwise not really very concerned. HEENT: Pupils are equally round and reactive to light and accommodation. Extraocular movement is intact. No facial pain. No sinus disease. Oral mucosa is moist. Conjunctivae are pink. NECK: Supple, no cervical bruit. HEART: Regular in rhythm. No S3 appreciated. No murmur appreciated today. LUNGS: Diminished breath sounds, but no adventitious sounds. ABDOMEN: Soft, bowel sounds are present. EXTREMITIES: Have no edema. Full range of motion. MEDICAL DECISION MAKING: She is expecting to go home. We explained to her that probably tomorrow would be more likely as the hemoglobin drop this morning of 8.6 could have been dilutional, but should be followed up with morning labs. She arrived close to the 11. Chemistry is unremarkable except for the ALT remaining at 84. We will wait for discharge recommendations from Dr. Bautista. IMPRESSION: Torn right rotator cuff with inflammatory effusion. Negative cultures. Recent recurrence of rapid ventricular response during atrial fibrillation, now stable, rate controlled. Underlying hypertension, pseudogout, recent note of esophagitis and gastric ulcers on medication with relief. Hydronephrosis as noted by prior sonogram will be followed. Anemia stable. PLAN OF CARE: Closely follow the patient for today and tomorrow decide on disposition and most likely recommendations for discharge. Tereso Ferro MD cc: 73 TT: 01/16/2017 22:53:16 Confirmation # [id number] Dictation # [id number] ln MTDD
--- NOTE | 2017-01-17 00:33 | PN ---
DATE: 01/16/2017 ADDENDUM This is an addendum to the GI progress report dictated by Diana Ruffin NP. The patient's hemoglobin was 9.0. The patient has received today's dose of Coumadin. The patient's last endoscopy showed sma ll ulcer erosions. In view of the anemia and the erosions, the decision was taken to give Coumadin r ather than Eliquis. If the hemoglobin remains stable on Coumadin, she can be ____ Eliquis. The augusto ent did have a history of sigmoid stricture. She had an incomplete colonoscopy. The scope could not advance beyond the stricture. The patient subsequently had a virtual colonoscopy, which was negativ e. The patient was admitted with a fever, atrial fibrillation, coronary artery disease. The patient has mildly elevated LFTs, which are now improving. We will continue to closely follow up her care a nd suggest further management based on the clinical course. Pieter Bautista MD cc: [id number] TT: 01/16/2017 23:56:33 Confirmation # [id number] Dictation # [id number] ln 01/16/2017 23:32:49
[2017-01-17 06:04] VITALS: RESP 20; TEMP 98.2; O2SAT 94
[2017-01-17] MEDS: Pantoprazole 40 mg EC Tab PO SCH (06:25)
[2017-01-17 06:52] LABS: ADD MANUAL DIFF? NO
[2017-01-17 07:14] LABS: INR 1.12 (0.93-1.08)
[2017-01-17 07:16] LABS: ALB/GLOB RATIO 0.9 (1.1-1.8); BILIRUBIN,TOTAL 0.4 mg/dL (0.2-1.3); POTASSIUM 4.2 mmol/L (3.6-5.0); TOTAL PROTEIN 6.6 g/dL (5.8-8.3)
[2017-01-17 07:17] LABS: BASO # 0.04 K/mm3 (0.0-2.0); BASO % 0.5 % (0.0-3.0); EOS # 0.2 (0.0-0.7); EOS % 2.5 % (1.5-5.0); GRAN % 68.7 % (50.0-68.0); HEMATOCRIT 28.2 % (36.0-48.0); LYMPH # 1.5 (1.2-3.4); LYMPH % 19.8 % (22.0-35.0); MEAN CELL VOLUME 86.8 fL (80.0-105.0); MEAN CORPUSCULAR HEMOGLOBIN 27.7 pg (25.0-35.0); MEAN CORPUSCULAR HGB CONC 31.9 g/dl (31.0-37.0); MEAN PLATELET VOLUME 9.8 fl (7.0-11.0); MONO # 0.6 (0.1-0.6); MONO % 8.5 % (1.0-6.0); PLATELET COUNT 317 10^3/uL (120.0-450.0); RED CELL DISTRIBUTION WIDTH 15.7 % (11.5-14.5); WHITE BLOOD COUNT 7.6 10^3/ul (4.5-11.0)
[2017-01-17] MEDS: Potassium Chloride 10 mEq ER Tab PO SCH (08:50)
[2017-01-17] MEDS: diltiaZEM 240 mg/24 Hours CD Cap PO SCH (09:53)
[2017-01-17] MEDS: Lidocaine 5% Patch TD SCH (09:54)
[2017-01-17 09:58] VITALS: BP 141/63
--- NOTE | 2017-01-17 10:53 | CARD ---
APPROVED REPORT EKG Measurement Heart [id number] <Conclusion> Sinus bradycardia T wave abnormality, consider inferior ischemia Abnormal ECG
--- NOTE | 2017-01-17 11:20 | PN ---
DATE: 01/17/2017 Seen and examined at the bedside. The daughters were present. The patient does not complain of any nausea, vomiting or abdominal pain. Having formed stool with no melena or bright red blood. Tolerat ing oral intake. No complaints of shortness of breath or chest pain. VITAL SIGNS: Temperature is 98.2, blood pressure 141/63, pulse 55, respirations 20, 94 O2 saturation . LABORATORY DATA: WBC is 7.6, H and H is 9.0 and 28.2, platelets are 317. PT is 12.1, INR is 1.12. Sodium 140, K 4.2, BUN 28, creatinine 1.2. Total bilirubin 0.4, AST 27, ALT 74, alkaline phosphatase is 133. Liver enzymes continue to improve. PHYSICAL EXAMINATION: HEENT: Sclerae are anicteric. NECK: Supple. CARDIAC: S1, S2. LUNGS: With decreased breath sounds, but no rales or wheeze. ABDOMEN: With bowel sounds, soft, nontender. EXTREMITIES: No edema. NEUROLOGIC: Awake and alert, oriented. ASSESSMENT: This is a 81-year-old female with history of chronic atrial fibrillation initially on El iquis, now on Coumadin, found to have iron deficiency anemia and positive guaiac. The patient had up per endoscopy done, found to have reflux esophagitis and gastric ulcer. The patient was also noted t o have elevated liver enzymes with hepatomegaly. This did not show any gallstones or any ductal dila tation or stones, has history of cholecystectomy, but also noted to have bilateral moderate hydroneph rosis of the right and left kidneys. Her liver function tests continue to improve which may be secon rusty to hepatic congestion. She also has history of colonic stricture, has history of incomplete col onoscopy secondary to this. She did go for a virtual colonoscopy which was negative. PLAN: For the patient to be discharged home on Coumadin and continue to monitor H and H, and if augusto ent remains stable on Coumadin, the patient will be restarted back on Eliquis. Continue PPI and nancy tor for overt signs of GI bleed. Diet as tolerated. The patient was seen and case discussed with Dr Jaison Bautista. Diana MCFARLAND cc: 451 TT: 01/17/2017 11:19:49 Confirmation # [id number] Dictation # [id number] tn
[2017-01-17 11:50] VITALS: PULSE 51
--- NOTE | 2017-01-17 15:36 | PN ---
DATE: 01/17/2017 The patient is in bed, in no acute distress, nontoxic. No fevers, no chills. PHYSICAL EXAMINATION: VITAL SIGNS: Temperature is 98, blood pressure is 140/60, respiratory rate of 16. HEENT: Unremarkable. NECK: Supple. LUNGS: Have decreased breath sounds. HEART: Normal S1, S2. ABDOMEN: Soft. LABORATORY EXAMINATION: Reviewed. The patient has white count of 7.6. ASSESSMENT AND PLAN: A 81-year-old female with sepsis secondary to complete rotator cuff tear in the right shoulder and cultures negative. The patient with pseudogout. We will complete with kayleigh meier. Case discussed with patient's daughter, who was at bedside this morning when the patient wa s seen and patient is going to be followed closely as an outpatient with primary doctor. Puneet David MD cc: 350 TT: 01/17/2017 15:36:15 Confirmation # [id number] Dictation # [id number] en
--- NOTE | 2017-01-17 15:51 | DS ---
PRIMARY DIAGNOSIS: Systemic inflammatory response syndrome due to rotator cuff tear. SECONDARY DIAGNOSES: Right shoulder synovitis due to rotator cuff tear, atrial fibrillation with rapid ventricular response, gastric ulcer, iron deficiency anemia, hypertension. The patient is a 81-year-old female who was admitted for fever and body ache with severe right shoulder pain for 2 weeks prior to admission. The patient was hospitalized 2 weeks earlier for new onset of atrial fibrillation. At that time, developed right shoulder pain and she was injected with steroid. The patient since then continued with pain. During this admission, she continued with fever, had septic workup, showed at first blood culture positive for Staphylococcus aureus coagulase negative, but the rest of her cultures were negative. The patient had aspiration of the right shoulder with obtained bloody and thick yellow synovial fluid. Culture of synovial fluid was negative , but cytology showed high leukocytosis 44,000 and blood cells. Again, cultures were negative. The patient was treated with IV antibiotics, Merrem and vancomycin, which was later on changed to daptomycin. During hospitalization, her fever subsided. She felt better, but developed iron deficiency anemia with no signs of active bleeding. Her heart rate was also very unstable with atrial fibrillation with fast ventricular response, treated with IV Cardizem drip. The patient underwent endoscopy, which showed gastric ulcer and small erosions as well as esophagitis, treated with pantoprazole. The patient's anticoagulation medication was changed to warfarin. The patient is feeling much better today. She is ambulatory. Denies any abdominal pain. Her shoulder pain subsided. PHYSICAL EXAMINATION: VITAL SIGNS: Stable, heart rate shows bradycardia 55 per minute, blood pressure 141/63, respiratory rate 18, temperature 98.2. GENERAL: She is comfortable in bed, alert, awake, oriented. HEENT: Head is normocephalic, atraumatic. Oral mucosa is moist. NECK: Supple. LUNGS: Clear to auscultation. HEART: With irregular rhythm, bradycardia 50-60 per minute. ABDOMEN: Soft, nontender, nondistended. EXTREMITIES: Significant for right shoulder tenderness, but improved motion. No leg edema. DIAGNOSTIC TESTS: CBC this morning stable with WBC 7.6 and hemoglobin 10 and hematocrit 28.2. Chemistry: Normal electrolytes, improved renal function with BUN 28, creatinine 1.2. Her liver enzymes returned to normal. Her blood cultures and synovial fluid cultures are all negative. Her urine culture was negative. ASSESSMENT: 1. Systemic inflammatory response syndrome due to rotator cuff tear right shoulder. 2. Right shoulder synovitis. 3. Atrial fibrillation. 4. Gastric ulcer. 5. Iron deficiency anemia. 6. Hypertension. PLAN OF TREATMENT: The patient will be discharged home today. Will continue heart healthy diet. The patient will be maintained on metoprolol tartrate 25 mg twice a day, Cardizem-CD 240 mg daily, Nexium 40 mg daily, iron sulfate 1 tablet twice a day, Lipitor 10 mg daily, Coumadin 5 mg daily and enalapril 5 mg daily. The patient will have INR repeated on Saturday. She was advised to follow up with primary care physician next week on Saturday. We will recheck her INR and adjust Coumadin as needed. She was also advised to follow up with literary writer in 2 weeks. Karly Barron MD cc: [id number] TT: 01/17/2017 15:50:21 en MTDD
--- NOTE | 2017-01-17 16:47 | PN ---
DATE: 01/17/2017 REASON FOR CONSULTATION AND FOLLOWUP: AFib, rapid rate, now converted to normal sinus; hypertension, coronary artery disease, nonischemic cardiomyopathy, sepsis, UTI. BRIEF CLINICAL HISTORY: This is a 81-year-old female with past medical history significant for atria l fibrillation, paroxysmal; status post cardiac catheterization, nonobstructive coronary artery disea se. Admitted with fever, sepsis, AFib with rapid ventricular rate. The patient now converted to nor mal sinus. Now on p.o. Cardizem. Yesterday's endoscopy, possibly small ulcer. Discussed with the dexter beckford. The patient started on Coumadin, again tolerating. PHYSICAL EXAMINATION: As follows: VITAL SIGNS: Temperature afebrile, heart rate 50, blood pressure 141/63. HEENT: PERRLA. Extraocular muscles intact. NECK: Supple. No carotid bruits. No thyromegaly. CHEST: Clear to auscultation. HEART: S1, S2 regular. ABDOMEN: Soft. EXTREMITIES: Clubbing and cyanosis negative. BLOOD WORKUP: As follows: WBC ____, hemoglobin 9, hematocrit 28.2, platelet count 316. Chemistry s hows sodium 140, potassium 4.2, chloride 103, carbon dioxide 20, anion gap of 12, BUN 28, creatinine 1.2. INR 1.12. IMPRESSION: Paroxysmal atrial fibrillation, diabetes, hypertension, hyperlipidemia, status post endo scopy, a small ulcer; on anticoagulation, urinary tract infection, sepsis. Went back into atrial fib rillation, now patient converted to normal sinus. Status post cardiac catheterization, nonobstructiv e coronary artery disease, nonischemic cardiomyopathy. RECOMMENDATION: Continue anticoagulation because of back and forth. The patient had a second episod e of AFib, we will continue to do Cardizem-CD and continue low dose atenolol. Continue anticoagulati on. Followup INR ____ weeks. I discussed with the daughter, possible discharge home. Thank you, Dr. Pacheco, for providing us the opportunity in taking care of the patient. We will fol low with you. Jimmy Garcia MD cc:Karly Barron MD [phone] TT: 01/17/2017 16:47:04 Confirmation # [id number] Dictation # [id number]
== END 2017-01-17 13:06 | disposition home or self-care (01) | DRG 872 ==
LOC: ED 11:05 → ERH 13:41 → 3RSO 18:28 → 2RNO 01-11 12:37
PROVIDERS: ADMIT Family Medicine; ATTEND Family Medicine
PROC: 0R9J3ZX Drainage of Right Shoulder Joint, Percutaneous Approach, Diagnostic (ICD-10-PCS; principal; 2017-01-11)
PROC: 0DJ08ZZ Inspection of Upper Intestinal Tract, Via Natural or Artificial Opening Endoscopic (ICD-10-PCS; 2017-01-15)
DX: A41.9 Sepsis, unspecified organism (principal); M75.121 Complete rotator cuff tear or rupture of right shoulder, not specified as traumatic; M11.211 Other chondrocalcinosis, right shoulder; I42.0 Dilated cardiomyopathy; I11.0 Hypertensive heart disease with heart failure; I50.9 Heart failure, unspecified; K25.9 Gastric ulcer, unspecified as acute or chronic, without hemorrhage or perforation; D63.8 Anemia in other chronic diseases classified elsewhere; N13.30 Unspecified hydronephrosis; I48.0 Paroxysmal atrial fibrillation; M65.811 Other synovitis and tenosynovitis, right shoulder; D50.9 Iron deficiency anemia, unspecified; E78.5 Hyperlipidemia, unspecified; G47.00 Insomnia, unspecified; I25.10 Atherosclerotic heart disease of native coronary artery without angina pectoris; M19.90 Unspecified osteoarthritis, unspecified site; F32.9 Major depressive disorder, single episode, unspecified; K21.0 Gastro-esophageal reflux disease with esophagitis; K44.9 Diaphragmatic hernia without obstruction or gangrene; I48.2 Chronic atrial fibrillation; M06.4 Inflammatory polyarthropathy; E66.9 Obesity, unspecified; Z68.31 Body mass index [BMI] 31.0-31.9, adult; Z79.01 Long term (current) use of anticoagulants; Z87.440 Personal history of urinary (tract) infections; Z85.41 Personal history of malignant neoplasm of cervix uteri; Z90.49 Acquired absence of other specified parts of digestive tract; Z92.3 Personal history of irradiation; Z90.710 Acquired absence of both cervix and uterus; Z82.49 Family history of ischemic heart disease and other diseases of the circulatory system

== ENCOUNTER 2017-03-29 09:03 | Day surgery (SDC) | payer MEDICARE, OTHER ==
[2017-03-22 12:52] VITALS: BMI 28.0
[2017-03-29] MEDS ORDERED: Propofol 10 mg/ml Inj (20 ML) ONE (10:49)
[2017-03-29] MEDS ORDERED: ePHEDrine 50 mg/ml Inj ONE (11:26)
[2017-03-29] MEDS ORDERED: Sodium Chloride 0.9% 1,000 ML IV SCH (11:30)
[2017-03-29 14:50] VITALS: BP 134/69; PULSE 48; RESP 18; TEMP 98.5; O2SAT 99
== END 2017-03-29 14:00 | disposition home or self-care (01) ==
LOC: ENDO 09:03
PROVIDERS: ATTEND Internal Medicine Gastroenterology
DX: D50.9 Iron deficiency anemia, unspecified (principal); K21.9 Gastro-esophageal reflux disease without esophagitis; K29.50 Unspecified chronic gastritis without bleeding; K56.69 Other intestinal obstruction; K63.5 Polyp of colon; K64.8 Other hemorrhoids; I48.91 Unspecified atrial fibrillation; Z85.42 Personal history of malignant neoplasm of other parts of uterus
CPT/HCPCS: 43239; 45331; 88305; 88312; 88342; J2001; J2704; J7040 ×2

== ENCOUNTER 2017-04-15 12:41 | Inpatient (IN) | payer MEDICARE, OTHER ==
[2017-04-15 12:42] VITALS: PULSE 104
[2017-04-15] MEDS ORDERED: cefTRIAXone 2 GM IN NS 2 GM/100 ML BAG IVPB STA (13:05)
--- NOTE | 2017-04-15 13:37 | ED PDOC ---
Arrival/HPI - General Chief Complaint: Fever Time Seen by Provider: 04/15/17 13:04 Historian: Patient - History of Present Illness Narrative History of Present Illness (Text): 04/15/17 13:41 A 81 year old female, whose past medical history includes hypertension, hypercholesterolemia, and a previous hospitalization for atrial fibrillation and bacteremia, sent to the emergency department by PMD complaining of fever, chills and weakness. Patient's daughter served as flake cutter operator. Patient was in PMD 's office and given Tylenol because she was having fever. Reports chronic hip pain, some nausea this morning and dysuria but denies any cough, shortness of breath, rashes on skin or any other complaints at this time. PMD: Dr. Barron Symptom Onset: Sudden Symptom Course: Unchanged Activities at Onset: Rest Context: Other (PMD office) Past Medical History - Provider Review Nursing Documentation Reviewed: Yes - Infectious Disease Hx of Infectious Diseases: None - Past Medical History Past Medical History: No Previous - Cardiac Hx Hypertension: Yes Hx Pacemaker: No - Pulmonary Hx Respiratory Disorders: No - Neurological Hx Paralysis: No - HEENT Hx HEENT Disorder: No - Renal Hx Renal Disorder: No - Endocrine/Metabolic Hx Endocrine Disorders: No - Hematological/Oncological Hx Blood Transfusions: No Hx Blood Transfusion Reaction: No - Integumentary Hx Dermatological Disorder: No - Musculoskeletal/Rheumatological Hx Musculoskeletal Disorders: Yes (chronic r hip pain) - Gastrointestinal Hx Gall Bladder Disease: Yes (galbladder removal) - Genitourinary/Gynecological Hx Urinary Tract Infection: Yes - Psychiatric Hx Emotional Abuse: No Hx Physical Abuse: No Hx Substance Use: No - Past Surgical History Past Surgical History: No Previous - Surgical History Hx Cholecystectomy: Yes - Anesthesia Hx Anesthesia: Yes Hx Anesthesia Reactions: No Hx Malignant Hyperthermia: No - Suicidal Assessment Feels Threatened In Home Enviroment: No Family/Social History - Physician Review Nursing Documentation Reviewed: Yes Family/Social History: No Known Family HX Smoking Status: Never Smoked Hx Alcohol Use: No Hx Substance Use: No Allergies/Home Meds Allergies/Adverse Reactions: Allergies No Known Allergies Allergy (Verified 01/09/17 11:22) Home Medications: Home Meds Medication Instructions Recorded Confirmed Atorvastatin [Lipitor] 10 mg PO 1700 01/17/17 04/15/17 Aspirin [Ecotrin] 81 mg PO DAILY 03/22/17 04/15/17 Enalapril Maleate [Vasotec] 10 mg PO BID 03/22/17 04/15/17 Metoprolol Tartrate [Lopressor] 1 tab PO BID 04/15/17 04/15/17 Zolpidem [Ambien] 1 tab PO HS PRN 04/15/17 04/15/17 Review of Systems - Physician Review All systems were reviewed & negative as marked: Yes - Review of Systems Constitutional: Fevers, Other (chills and weakness) Respiratory: absent: SOB, Cough Gastrointestinal: Nausea Genitourinary Female: Dysuria Musculoskeletal: Other (chronic hip pain) Skin: absent: Rash Physical Exam - Physical Exam Narrative Physical Exam (Text): Constitutional: No acute distress. Head: Normocephalic. Atraumatic. Eyes: PERRL. ENT: No exudate, no erythema, dry mucous membranes Neck: Supple. Cardiovascular: Tachycardic. Murmur. Chest: No tenderness. Respiratory: Clear to auscultation bilaterally. GI: Soft. Suprapubic tenderness. Nondistended. Back: No CVA tenderness. Musculoskeletal: No tenderness or swelling of extremities. Skin: No rash. Neurologic: Alert, no focal deficit. Vital Signs Reviewed: Yes Vital Signs Temp Pulse Resp BP Pulse Ox 04/15/17 13:02 101.4 F H 104 H 18 153/73 H 98 Temperature: Febrile Blood Pressure: Hypertensive Pulse: Tachycardic Respiratory Rate: Normal Appearance: Positive for: Well-Appearing, Non-Toxic, Comfortable Pain Distress: None Mental Status: Positive for: Alert and Oriented X 3 Medical Decision Making ED Course and Treatment: 04/15/17 13:31 Impression: A 81 year old female with fever, chills and weakness. Plan: -- EKG -- chest xray -- labs -- Urinalysis -- Reassess and disposition Prior Visits: Notes and results from previous visits were reviewed. Patient last reported to the emergency department on 01/09/17 for evaluation of fever. Patient was admitted for sepsis. Progress Notes: 04/15/17 13:30 EKG: Ordered, reviewed, and independently interpreted the EKG. Rate : 60 BPM Rhythm : Sinus bradycardia Interpretation : No ST/T wave changes 04/15/17 14:37 chest xray Creator : Grant Suárez MD IMPRESSION: No active disease. Accepted for admission by Dr. Pacheco for UTI sepsis. Lactate negative, no hypotension, no evidence of severe sepsis. IV antibiotics, IV fluids, ID consult placed an call made at Dr. Pacheco's request. - Lab Interpretations Lab Results: 04/15/17 13:11 04/15/17 13:11 Lab Results 04/15/17 13:50: Urine Color Yellow, Urine Appearance Cloudy, Urine pH 6.0, Ur Specific [place] 1.020, Urine Protein 100 H, Urine Glucose (UA) Negative, Urine Ketones Negative, Urine Blood Small H, Urine Nitrate Positive H, Urine Bilirubin Negative, Urine Urobilinogen 0.2, Ur Leukocyte Esterase Large H, Urine RBC 1 - 3, Urine WBC Tntc, Ur Epithelial Cells 0 - 2, Urine Bacteria Many 04/15/17 13:11: Sodium 131 L, Chloride 102, Potassium 4.4, Carbon Dioxide 22, Anion Gap 11, BUN 27 H, Creatinine 1.2, Est GFR ( Amer) 52, Est GFR (Non- Af Amer) 43, Random Glucose 102, Calcium 9.0, Phosphorus 3.9, Magnesium 1.5 L, Total Bilirubin 0.6, AST 26, ALT 23, Alkaline Phosphatase 150 H, Total Protein 7.7, Albumin 3.9, Globulin 3.8, Albumin/Globulin Ratio 1.0 L 04/15/17 13:11: pO2 81 H, VBG pH 7.42, VBG pCO2 35.0 L, VBG HCO3 22.7, VBG Total CO2 23.8, VBG O2 Sat (Calc) 97.4 H, VBG Base Excess -1.4 L, VBG Potassium 4.4, Sodium 134.0, Chloride 107.0, Glucose 111 H, Lactate 1.1, FiO2 21.0, Venous Blood Potassium 4.4 04/15/17 13:11: PT 11.2, INR 1.04, APTT 29.4 04/15/17 13:11: WBC 12.6 H D, RBC 3.68, Hgb 10.4 L, Hct 32.2 L, MCV 87.5, MCH 28.3, MCHC 32.3, RDW 14.7 H, Plt Count 287, MPV 9.8, Gran % 83.0 H, Lymph % ( Auto) 8.7 L, [place] % (Auto) 8.0 H, Eos % (Auto) 0.1 L, Baso % (Auto) 0.2, Gran # 10.42 H, Lymph # 1.1 L, [place] # 1.0 H, Eos # 0.0, Baso # 0.03 I have reviewed the lab results: Yes - RAD Interpretation Radiology Orders: 04/15/17 13:05 CHEST PORTABLE [RAD] Stat - EKG Interpretation Interpreted by ED Physician: Yes Type: 12 lead EKG - Medication Orders Current Medication Orders: Sodium Chloride (Sodium Chloride 0.9%) 1,000 mls @ 999 mls/hr IV .Q1H1M STA Stop: 04/15/17 14:54 Last Admin: 04/15/17 14:15 Dose: 999 mls/hr Discontinued Medications Ceftriaxone Sodium (Rocephin 2 Gm Ivpb) 2 gm in 100 mls @ 100 mls/hr IVPB STAT STA PRN Reason: Protocol Stop: 04/15/17 14:04 Last Admin: 04/15/17 14:15 Dose: 100 mls/hr - Scribe Statement The provider has reviewed the documentation as recorded by the David Hernández Provider Scribe Attestation: All medical record entries made by the Scribfranco were at my direction and personally dictated by me. I have reviewed the chart and agree that the record accurately reflects my personal performance of the history, physical exam, medical decision making, and the department course for this patient. I have also personally directed, reviewed, and agree with the discharge instructions and disposition. Disposition/Present on Arrival - Present on Arrival Any Indicators Present on Arrival: No History of DVT/PE: No History of Uncontrolled Diabetes: No Urinary Catheter: No History of Decub. Ulcer: No History Surgical Site Infection Following: None - Disposition Have Diagnosis and Disposition been Completed?: Yes Diagnosis: Sepsis, UTI (urinary tract infection) Disposition: HOSPITALIZED Disposition Time: 14:21 Patient Plan: Admission Condition: FAIR Discharge Instructions (ExitCare): Sepsis (ED) Referrals: Karly Barron MD [Primary Care Provider] - Follow up with primary
[2017-04-15 13:50] LABS: BASO # 0.03 K/mm3 (0.0-2.0); BASO % 0.2 % (0.0-3.0); EOS % 0.1 % (1.5-5.0); GRAN # 10.42 (1.4-6.5); HEMOGLOBIN 10.4 gm/dL (12.0-16.0); LYMPH # 1.1 (1.2-3.4); LYMPH % 8.7 % (22.0-35.0); MEAN CELL VOLUME 87.5 fL (80.0-105.0); MEAN CORPUSCULAR HEMOGLOBIN 28.3 pg (25.0-35.0); MEAN CORPUSCULAR HGB CONC 32.3 g/dl (31.0-37.0); MEAN PLATELET VOLUME 9.8 fl (7.0-11.0); PLATELET COUNT 287 10^3/uL (120.0-450.0); RBC 3.68 10^6/uL (3.5-6.1); RED CELL DISTRIBUTION WIDTH 14.7 % (11.5-14.5); VENOUS BLOOD GAS BASE EXCESS -1.4 mmol/L (0.0-2.0); VENOUS BLOOD GAS PO2 81 mm/Hg (30-55); VENOUS BLOOD PH 7.42 (7.32-7.43); WHITE BLOOD COUNT 12.6 10^3/ul (4.5-11.0)
[2017-04-15] MEDS ORDERED: Sodium Chloride 0.9% 1,000 ML IV STA (13:54)
[2017-04-15 13:59] LABS: INR 1.04 (0.93-1.08); PARTIAL THROMBOPLASTIN TIME 29.4 Seconds (23.7-30.8); PROTHROMBIN TIME 11.2 Seconds (9.9-11.8)
[2017-04-15 14:00] LABS: ALBUMIN 3.9 g/dL (3.0-4.8); MAGNESIUM 1.5 mg/dL (1.7-2.2)
[2017-04-15 14:04] LABS: URINE BILIRUBIN NEGATIVE (NEGATIVE); URINE BLOOD SMALL (NEGATIVE); URINE GLUCOSE (UA) NEGATIVE (NEGATIVE); URINE LEUKOCYTE ESTERASE LARGE Leu/uL (NEGATIVE); URINE NITRATE POSITIVE (NEGATIVE); URINE PROTEIN 100 mg/dL (<30 mg/dL); URINE UROBILINOGEN 0.2 E.U./dL (<1 E.U./dL)
[2017-04-15 14:09] LABS: URINE COLOR YELLOW (YELLOW)
[2017-04-15 14:10] LABS: URINE APPEARANCE CLOUDY (CLEAR)
[2017-04-15 14:23] LABS: URINE WBC TNTC /hpf (0-6)
[2017-04-15 14:24] LABS: URINE BACTERIA MANY (NEG); URINE EPITHELIAL CELLS 0 - 2 /hpf (0-5)
--- NOTE | 2017-04-15 14:35 | RAD ---
HISTORY: Sepsis Patient COMPARISON: 01/09/2017 FINDINGS: LUNGS: No active pulmonary disease. PLEURA: No significant pleural effusion identified, no pneumothorax apparent. CARDIOVASCULAR: Normal. OSSEOUS STRUCTURES: No significant abnormalities. VISUALIZED UPPER ABDOMEN: Normal. OTHER FINDINGS: None. IMPRESSION: No active disease.
[2017-04-15 17:18] VITALS: BMI 30.9
--- NOTE | 2017-04-15 17:34 | CARD ---
APPROVED REPORT EKG Measurement Heart [id number] <Conclusion> Sinus bradycardia with sinus arrhythmia Otherwise normal ECG
[2017-04-15] MEDS ORDERED: DAPTOmycin 500 mg Inj (Cubicin) IV ONE (18:45)
[2017-04-15] MEDS ORDERED: Meropenem 1g/NS 100mL IVPB 1 GM/100 ML PIGGYBACK IVPB SCH (18:46)
[2017-04-15] MEDS ORDERED: Magnesium Sulfate 2 GM in Sodium Chloride 0.9% 100 ML IVPB ONE (20:06)
--- NOTE | 2017-04-15 23:17 | CP.PCM.HP ---
History of Present Illness - History of Present Illness History of Present Illness: 81 yo female with history of hypertension, chronic bladder atony , recurrent urinary tract infection presented with fever , chills, generalized fatigue for 2 -3 days . She admits to decrease of appetite but denies abdominal pain, nausea or vomiting. She denies dysuria, flank pain or hematuria. She denies sore throat, cough, nasal congestion. Present on Admission - Present on Admission Any Indicators Present on Admission: No History of DVT/PE: No History of Uncontrolled Diabetes: No Urinary Catheter: No Decubitus Ulcer Present: No History Surgical Site Infection Following: None Review of Systems - Constitutional Constitutional: Fatigue, Fever, Headache Additional comments: decrease of appetite - EENT Eyes: absent: As Per HPI, Blind Spots, Blurred Vision, Change in Vision, Decreased Night Vision, Diplopia, Discharge, Dry Eye, Exophthalmos, Floaters, Irritation, Itchy Eyes, Loss of Peripheral Vision, Pain, Photophobia, Requires Corrective Lenses, Sees Flashes, Spots in Vision, Tunnel Vision, Other Visual Disturbances, Loss of Vision, Other Ears: Decreased Hearing Nose/Mouth/Throat: absent: As Per HPI, Epistaxis, Nasal Congestion, Nasal Discharge, Nasal Obstruction, Nasal Trauma, Nose Pain, Post Nasal Drip, Sinus Pain, Sinus Pressure, Bleeding Gums, Change in Voice, Dental Pain, Dry Mouth, Dysphagia, Halitosis, Hoarsness, Lip Swelling, Mouth Lesions, Mouth Pain, Odynophagia, Sore Throat, Throat Swelling, Tongue Swelling, Facial Pain, Neck Pain, Neck Mass, Other - Cardiovascular Cardiovascular: absent: As Per HPI, Acrocyanosis, Chest Pain, Chest Pain at Rest , Chest Pain with Activity, Claudication, Diaphoresis, Dyspnea, Dyspnea on Exertion, Edema, Irregular Heart Rhythm, Pain Radiating to Arm/Neck/Jaw, Leg Edema, Leg Ulcers, Lightheadedness, Orthopnea, Palpitations, Paroxysmal Nocturnal Dyspnea, Pedal Edema, Radiating Pain, Rapid Heart Rate, Slow Heart Rate, Syncope, Other - Respiratory Respiratory: absent: As Per HPI, Cough, Dyspnea, Hemoptysis, Dyspnea on Exertion , Wheezing, Snoring, Stridor, Pain on Inspiration, Chest Congestion, Excessive Mucous Production, Change in Mucous Color, Pain with Coughing, Other - Gastrointestinal Gastrointestinal: absent: As Per HPI, Abdominal Pain, Belching, Bloating, Change in Bowel Habits, Change in Stool Character, Coffee Ground Emesis, Constipation, Cramping, Diarrhea, Dyspepsia, Dysphagia, Early Satiety, Excessive Flatus, Fecal Incontinence, Heartburn, Hematemesis, Hematochezia, Loose Stools, Melena, Nausea, Odynophagia, Temesmus, Vomiting, Other - Genitourinary Genitourinary: Voiding Freq/Small Amts Additional comments: History of bladder atony, hostory of pelvis radiation therapy - Reproductive: Female Reproductive:Female: S/P Hysterectomy - Menstruation Menstruation: Post Menopausal - Musculoskeletal Musculoskeletal: Arthralgias, Back Pain, Limited Range of Motion, Stiffness Additional comments: right hip pain - Neurological Neurological: Abnormal Hearing, Dizziness - Psychiatric Psychiatric: Abnormal Sleep Pattern, Depression Additional comments: chronic insomnia - Endocrine Endocrine: absent: As Per HPI, Change in Body Appearance, Change in Libido, Cold Intolorance, Deepening of Voice, Excessive Sweating, Fatigue, Flushing, Heat Intolorance, Increase in Ring/Shoe/Hat Size, Palpitations, Polydipsia, Polyphagia, Polyuria, Other - Hematologic/Lymphatic Hematologic: absent: As Per HPI, Easy Bleeding, Easy Bruising, Lymphadenopathy, Other Past Patient History - Infectious Disease Hx of Infectious Diseases: None - Tetanus Immunizations Tetanus Immunization: Unknown - Past Medical History & Family History Past Medical History?: Yes Past Family History: Reviewed and not pertinent - Past Social History Smoking Status: Never Smoked Alcohol: None Drugs: Denies Home Situation {Lives}: Alone - CARDIAC Hx Cardiac Disorders: Yes Hx Angina: Yes Hx Cardia Arrhythmia: Yes Hx Circulatory Problems: No Hx Congestive Heart Failure: No Hx Heart Attack: No Hx Heart Murmur: Yes Hx Heart Transplant: No Hx Hypertension: Yes Hx Internal Defibrillator: No Hx Mitral Valve Prolapse: No Hx Pacemaker: No Hx Peripheral Edema: Yes Hx Peripheral Vascular Disease: No - PULMONARY Hx Respiratory Disorders: No - NEUROLOGICAL Hx Neurological Disorder: No Hx Dizziness: Yes - HEENT Hx HEENT Problems: No - RENAL Hx Chronic Kidney Disease: Yes Hx Neurogenic Bladder: Yes Hx Renal Failure: No - ENDOCRINE/METABOLIC Hx Endocrine Disorders: No - HEMATOLOGICAL/ONCOLOGICAL Hx Blood Disorders: No - INTEGUMENTARY Hx Dermatological Problems: No - MUSCULOSKELETAL/RHEUMATOLOGICAL Hx Musculoskeletal Disorders: Yes Hx Arthritis: Yes Hx Degenerative Joint Disease: Yes (hip ) Hx Falls: Yes Hx Gout: No Hx Herniated Disk: No Hx Osteoarthritis: Yes (hip, knees) Hx Osteoporosis: Yes Hx Rheumatoid Arthritis: No Hx Spinal Stenosis: No Hx Unsteady Gait: Yes - GASTROINTESTINAL Hx Gall Bladder Disease: Yes (galbladder removal) Hx Gastritis: Yes Hx Hemorrhoids: Yes - GENITOURINARY/GYNECOLOGICAL Hx Genitourinary Disorders: Yes Hx Bladder Cancer: No Hx Bladder Stone: No Hx Cervical Cancer: Yes Hx Hematuria: No Hx Postmenopausal Bleeding: Yes Hx Reproductive Disorders: No Hx Uterine Cancer: No Hx Urinary Tract Infection: Yes - PSYCHIATRIC Hx Anxiety: Yes Hx Depression: Yes Hx Emotional Abuse: No Hx Physical Abuse: No - SURGICAL HISTORY Hx Surgeries: Yes Hx Cholecystectomy: Yes Hx Hysterectomy: Yes - ANESTHESIA Hx Anesthesia: Yes Hx Anesthesia Reactions: No Hx Malignant Hyperthermia: No Meds Allergies/Adverse Reactions: Allergies Allergy/AdvReac Type Severity Reaction Status Date / Time No Known Allergies Allergy Verified 01/09/17 11:22 Physical Exam - Constitutional Appears: Well, Non-toxic - Head Exam Head Exam: ATRAUMATIC, NORMAL INSPECTION, NORMOCEPHALIC - Eye Exam Eye Exam: EOMI, Normal appearance Pupil Exam: NORMAL ACCOMODATION, PERRL - ENT Exam ENT Exam: Mucous Membranes Moist, Normal Oropharynx - Neck Exam Neck exam: Positive for: Full Rom, Normal Inspection. Negative for: Lymphadenopathy, Meningismus, Tenderness, Thyromegaly - Respiratory Exam Respiratory Exam: Clear to Auscultation Bilateral, NORMAL BREATHING PATTERN - Cardiovascular Exam Cardiovascular Exam: Bradycardia, JVD, +S1, +S2 - GI/Abdominal Exam GI & Abdominal Exam: Normal Bowel Sounds, Soft. absent: Bruit, Diminished Bowel Sounds, Distended, Firm, Guarding, Hernia, Hyperactive Bowel Sounds, Hypoactive Bowel Sounds, Mass, Organomegaly, Pulsatile Mass, Rebound, Rigid, Tenderness - Extremities Exam Extremities exam: Positive for: normal inspection Additional comments: bilateral varicose veins - Back Exam Back exam: FULL ROM, NORMAL INSPECTION - Neurological Exam Neurological exam: Alert, CN II-XII Intact, Oriented x3, Reflexes Normal - Psychiatric Exam Psychiatric exam: Normal Affect, Normal Mood - Skin Skin Exam: Normal Color, Warm Results - Vital Signs Recent Vital Signs: Last Vital Signs Temp 99.3 F 04/15/17 16:57 Pulse 59 L 04/15/17 16:57 Resp 20 04/15/17 16:57 BP 155/75 H 04/15/17 16:57 Pulse Ox 96 04/15/17 16:05 - Labs Result Diagrams: 04/15/17 13:11 04/15/17 13:11 - EKG Data Rate: Bradycardia - EKG Data When Compared to Previous EKG: No Significant Change - Imaging and Cardiology Chest x-ray Additional comment: no cardiac or lung pathology Assessment & Plan (1) Fever Status: Acute (2) UTI (urinary tract infection) Status: Acute (3) Hypertension Status: Chronic (4) Anemia of chronic disease Status: Chronic (5) Hyponatremia Status: Acute - Assessment and Plan (Free Text) Plan: Septic workup with urine and blood cultures. IV fluids , magnesium replacement. Start Rocephin IV. ID consultation. Resume chronic antihypertensive medications. GI protection with Protonix daily. Decision To Admit - Pt Status Changed To: Hospital Disposition Of: Inpatient Admission - Admit Certification Admit to Inpatient:: After my assessment, the patient will require hospitalization for at least two midnights. This is because of the severity of symptoms shown, intensity of services needed, and/or the medical risk in this patient being treated as an outpatient. - . Bed Request Type: Med/Surg
[2017-04-16] MEDS: Pantoprazole 40 mg EC Tab PO SCH (06:15)
[2017-04-16 08:16] LABS: MEAN CELL VOLUME 88.7 fL (80.0-105.0); MEAN CORPUSCULAR HEMOGLOBIN 28.2 pg (25.0-35.0); MEAN CORPUSCULAR HGB CONC 31.8 g/dl (31.0-37.0); RBC 3.54 10^6/uL (3.5-6.1); WHITE BLOOD COUNT 7.9 10^3/ul (4.5-11.0)
[2017-04-16 08:38] LABS: ALB/GLOB RATIO 1.1 (1.1-1.8); ALBUMIN 3.5 g/dL (3.0-4.8)
--- NOTE | 2017-04-16 09:24 | CP.PCM.PN ---
Subjective - Date & Time of Evaluation Date of Evaluation: 04/16/17 Time of Evaluation: 09:00 - Subjective Subjective: The patient feels better, no chills or fever this morning. She denies abdominal pain, tolerated breakfast. Objective - Vital Signs/Intake and Output Vital Signs (last 24 hours): Temp Pulse Resp BP Pulse Ox 98.5 F 75 19 174/63 H 92 L 04/16/17 09:13 04/16/17 09:13 04/16/17 09:13 04/16/17 09:13 04/16/17 09:13 Intake and Output: 04/16/17 04/16/17 06:59 18:59 Intake Total 300 Balance 300 - Medications Medications: Current Medications Acetaminophen (Tylenol 325mg Tab) 650 mg PO Q4H PRN PRN Reason: Temperature Last Admin: 04/15/17 22:27 Dose: 650 mg Diltiazem HCl (Cardizem Cd) 240 mg PO DAILY [facility] Meropenem 1g/NS 100mL IVPB (Meropenem 1g/Ns 100ml Ivpb) 1 gm in 100 mls @ 100 mls/hr IVPB Q12 [facility] PRN Reason: Protocol Stop: 04/23/17 10:01 Lisinopril (Zestril) 20 mg PO DAILY [facility] Pantoprazole Sodium (Protonix Ec Tab) 40 mg PO 0600 [facility] Last Admin: 04/16/17 06:15 Dose: Not Given Paroxetine HCl (Paxil) 20 mg PO DAILY [facility] Zolpidem Tartrate (Ambien) 5 mg PO HS PRN; Protocol PRN Reason: Insomnia Last Admin: 04/16/17 03:06 Dose: 5 mg - Labs Labs: 04/16/17 07:00 04/16/17 07:00 PT 11.2 Seconds (9.9-11.8) 04/15/17 13:11 INR 1.04 (0.93-1.08) 04/15/17 13:11 APTT 29.4 Seconds (23.7-30.8) 04/15/17 13:11 - Constitutional Appears: Well - Head Exam Head Exam: ATRAUMATIC, NORMOCEPHALIC - Eye Exam Eye Exam: Normal appearance Pupil Exam: NORMAL ACCOMODATION - ENT Exam ENT Exam: Mucous Membranes Moist - Respiratory Exam Respiratory Exam: Clear to Ausculation Bilateral - Cardiovascular Exam Cardiovascular Exam: REGULAR RHYTHM - GI/Abdominal Exam GI & Abdominal Exam: Soft, Normal Bowel Sounds - Extremities Exam Extremities Exam: Full ROM Additional comments: bilateral varicose veins - Neurological Exam Neurological Exam: Alert, Awake, Oriented x3 - Psychiatric Exam Psychiatric exam: Normal Mood - Skin Skin Exam: Normal Color, Warm Assessment and Plan (1) Fever Status: Resolved (2) UTI (urinary tract infection) Status: Acute (3) Hypertension Status: Chronic (4) Anemia of chronic disease Status: Chronic (5) Hyponatremia Status: Resolved - Assessment and Plan (Free Text) Plan: IV Merem as per ID order. Follow up blood and urine culture. We will continue chronic blood pressure medications.
[2017-04-16] MEDS: diltiaZEM 240 mg/24 Hours CD Cap PO SCH (10:13)
[2017-04-16] MEDS: Meropenem 1g/NS 100mL IVPB 1 GM/100 ML PIGGYBACK IVPB SCH ×2 (10:13→21:41)
--- NOTE | 2017-04-16 18:59 | CP.PCM.CON ---
History of Present Illness - History of Present Illness History of Present Illness: 81 year old female with PMH of HTN, dyslipidemia, obesity with BMI 31, history of uterine cancer S/P hysterectomy, S/P cholecystectomy, osteoarthritis, GERD, history of depression, history of E. 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 She was seen in her PMD's office on the day of admission and was having fever. She was also complaining of dysuria. She denies headache or dizziness, denies nausea or vomiting, no chest pain, no SOB, no no cough or colds, no headache or dizziness no hematuria, no rhinorrhea, no sore throat, no diarrhea. Infectious Diseases consult is requested to further evaluate and manage. Review of Systems - Review of Systems All systems: reviewed and no additional remarkable complaints except (as per HPI ) Past Patient History - Infectious Disease Hx of Infectious Diseases: None - Past Medical History & Family History Past Medical History?: Yes - Past Social History Smoking Status: Never Smoked - CARDIAC Hx Hypertension: Yes Hx Pacemaker: No - PULMONARY Hx Respiratory Disorders: No - NEUROLOGICAL Hx Neurological Disorder: No - HEENT Hx HEENT Problems: No - RENAL Hx Chronic Kidney Disease: No - ENDOCRINE/METABOLIC Hx Endocrine Disorders: No - HEMATOLOGICAL/ONCOLOGICAL Hx Blood Disorders: No - INTEGUMENTARY Hx Dermatological Problems: No - MUSCULOSKELETAL/RHEUMATOLOGICAL Hx Falls: No - GASTROINTESTINAL Hx Gall Bladder Disease: Yes (galbladder removal) - GENITOURINARY/GYNECOLOGICAL Hx Urinary Tract Infection: Yes - PSYCHIATRIC Hx Emotional Abuse: No Hx Physical Abuse: No - SURGICAL HISTORY Hx Cholecystectomy: Yes - ANESTHESIA Hx Anesthesia: Yes Hx Anesthesia Reactions: No Hx Malignant Hyperthermia: No Meds Allergies/Adverse Reactions: Allergies Allergy/AdvReac Type Severity Reaction Status Date / Time No Known Allergies Allergy Verified 01/09/17 11:22 - Medications Medications: Current Medications Acetaminophen (Tylenol 325mg Tab) 650 mg PO Q4H PRN PRN Reason: Temperature Last Admin: 04/15/17 17:51 Dose: 650 mg Daptomycin (Cubicin) 480 mg 6 mg/kg (480 mg) IV ONCE ONE PRN Reason: Protocol Stop: 04/15/17 18:46 Meropenem 1g/NS 100mL IVPB (Meropenem 1g/Ns 100ml Ivpb) 1 gm in 100 mls @ 100 mls/hr IVPB Q12 BONNIE PRN Reason: Protocol Stop: 04/15/17 19:45 Physical Exam - Constitutional Appears: Non-toxic, No Acute Distress - Head Exam Head Exam: NORMAL INSPECTION - ENT Exam ENT Exam: Mucous Membranes Moist - Neck Exam Neck exam: Negative for: Lymphadenopathy, Meningismus - Respiratory Exam Respiratory Exam: Decreased Breath Sounds - Cardiovascular Exam Cardiovascular Exam: +S1, +S2 - GI/Abdominal Exam GI & Abdominal Exam: Soft. 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 coli bacteremia, urine as the source HTN dyslipidemia obesity with BMI 31 history of uterine cancer S/P hysterectomy S/P cholecystectomy osteoarthritis GERD history of depression Plan started patient on Merrem pending identification and sensitivities of the gram negative bacilli in the urine will monitor clinically
[2017-04-17] MEDS: Pantoprazole 40 mg EC Tab PO SCH (06:21)
[2017-04-17 06:58] LABS: ALBUMIN 3.4 g/dL (3.0-4.8); ALT/SGPT 26 U/L (7-56); AST/SGOT 22 U/L (15-39); BLOOD UREA NITROGEN 16 mg/dL (7-21); CALCIUM 9.2 mg/dL (8.4-10.5); GFR AFRICAN-AMERICAN > 60; GFR NON-AFRICAN AMERICAN 53
[2017-04-17 07:04] LABS: MEAN CELL VOLUME 87.6 fL (80.0-105.0); MEAN CORPUSCULAR HEMOGLOBIN 27.6 pg (25.0-35.0); MEAN CORPUSCULAR HGB CONC 31.5 g/dl (31.0-37.0); RBC 3.62 10^6/uL (3.5-6.1)
--- NOTE | 2017-04-17 10:27 | PQF SEPSIS ---
This form is a permanent part of the medical record Clarification of your documentation is requested to better reflect the severity of illness and intensity of treatment of your patient. Indicators present 04/16 ID consult, " consider sepsis dt gram neg bacilli UTI. Do you agree that Sepsis was POA [] Temp < 96.8 or > 100.4 [] WBC count > 12,000/mm3 or <000/mm3 or 10% immature neutrophils NO [x] Heart Rate > 90 Yes [] Respiratory Rate > 20 NO [x] Fever or hypothermia 101.4 [x] Chills [] Positive blood cultures NO [] Hypotension NO [] Metabolic acidosis (Elevated lactate level, anion gap or reduced blood pH) NO [] Acute confusion /Altered Mental Status [] Shock [] Other: [] Location in the medical record that reflects the above clinical findings: [x]ID consult 04/16 Treatment Provided: [] IV Merrem PHYSICIAN'S RESPONSE Based on your medical judgment of the clinical indicators outlined above, are you treating this patient for a known or suspected: [X] Sepsis / Septicemia Please specify organism if known [] E.coli [] SIRS (Systemic Inflammatory Response Syndrome) [] Severe Sepsis (Sepsis with Associated Organ Dysfunction) [] Fever of Unknown Origin [] Other, please indicate: [] [] If Unable to Determine, please check the box, sign and date. Present On Admission (POA) Indicator: [X] Present at the time of admission [] Not present at the time of admission [] Clinically Undetermined In responding to this query, please exercise your independent professional judgment. The fact that a question is asked does not imply that any particular answer is desired or expected. Thank you for your clarification on this documentation. If you have any questions please call:[ ] [phone] * Thank you, [ ] Matilda Alaniz RN CDS therapy aide JULY
[2017-04-17] MEDS: Meropenem 1g/NS 100mL IVPB 1 GM/100 ML PIGGYBACK IVPB SCH (10:29)
[2017-04-17] MEDS: diltiaZEM 240 mg/24 Hours CD Cap PO SCH (10:29)
--- NOTE | 2017-04-17 12:26 | CP.PCM.PN ---
Subjective - Date & Time of Evaluation Date of Evaluation: 04/17/17 Time of Evaluation: 12:00 - Subjective Subjective: Comfortable, not in distress, afebrile. Objective - Vital Signs/Intake and Output Vital Signs (last 24 hours): Temp Pulse Resp BP Pulse Ox 99.4 F 67 19 159/74 H 95 04/16/17 17:40 04/16/17 17:40 04/16/17 17:40 04/16/17 17:40 04/16/17 17:40 Intake and Output: 04/17/17 04/17/17 06:59 18:59 Intake Total 680 Balance 680 - Medications Medications: Current Medications Acetaminophen (Tylenol 325mg Tab) 650 mg PO Q4H PRN PRN Reason: Temperature Last Admin: 04/16/17 17:37 Dose: 650 mg Diltiazem HCl (Cardizem Cd) 240 mg PO DAILY [facility] Last Admin: 04/16/17 10:13 Dose: 240 mg Meropenem 1g/NS 100mL IVPB (Meropenem 1g/Ns 100ml Ivpb) 1 gm in 100 mls @ 100 mls/hr IVPB Q12 [facility] PRN Reason: Protocol Stop: 04/23/17 10:01 Last Admin: 04/16/17 21:41 Dose: 100 mls/hr Lisinopril (Zestril) 20 mg PO DAILY [facility] Last Admin: 04/16/17 10:13 Dose: 20 mg Pantoprazole Sodium (Protonix Ec Tab) 40 mg PO 0600 [facility] Last Admin: 04/17/17 06:21 Dose: 40 mg Paroxetine HCl (Paxil) 20 mg PO DAILY [facility] Last Admin: 04/16/17 10:13 Dose: 20 mg Zolpidem Tartrate (Ambien) 5 mg PO HS PRN; Protocol PRN Reason: Insomnia Last Admin: 04/16/17 21:45 Dose: 5 mg - Labs Labs: 04/17/17 06:00 04/17/17 06:00 PT 11.2 Seconds (9.9-11.8) 04/15/17 13:11 INR 1.04 (0.93-1.08) 04/15/17 13:11 APTT 29.4 Seconds (23.7-30.8) 04/15/17 13:11 - Constitutional Appears: Non-toxic, No Acute Distress - Head Exam Head Exam: NORMAL INSPECTION - Neck Exam Neck Exam: absent: Meningismus - Respiratory Exam Respiratory Exam: Decreased Breath Sounds - Cardiovascular Exam Cardiovascular Exam: +S1, +S2 - GI/Abdominal Exam GI & Abdominal Exam: Soft. absent: Tenderness Assessment and Plan - Assessment and Plan (Free Text) Plan: Assessment Consider sepsis due to E. 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 coli bacteremia, urine as the source HTN dyslipidemia obesity with BMI 31 history of uterine cancer S/P hysterectomy S/P cholecystectomy osteoarthritis GERD history of depression Plan change Merrem to Ceftriaxone (day 2) and will continue to monitor clinically
[2017-04-17] MEDS: cefTRIAXone 1 gm 1 GM/100 ML BAG IVPB SCH (12:30)
--- NOTE | 2017-04-17 14:20 | CP.PCM.PN ---
Subjective - Date & Time of Evaluation Date of Evaluation: 04/17/17 Time of Evaluation: 13:00 - Subjective Subjective: The patient feels better. She denies chills abdominal pain, dysuria. Urine c/s with E. coli, sensitive to Rocephin. ID note reviewed. Objective - Vital Signs/Intake and Output Vital Signs (last 24 hours): Temp Pulse Resp BP Pulse Ox 99.4 F 72 20 140/80 94 L 04/17/17 09:03 04/17/17 10:27 04/17/17 09:03 04/17/17 10:27 04/17/17 09:03 Intake and Output: 04/17/17 04/17/17 06:59 18:59 Intake Total 680 Balance 680 - Medications Medications: Current Medications Acetaminophen (Tylenol 325mg Tab) 650 mg PO Q4H PRN PRN Reason: Temperature Last Admin: 04/16/17 17:37 Dose: 650 mg Atorvastatin Calcium (Lipitor) 10 mg PO DIN [facility] Diltiazem HCl (Cardizem Cd) 240 mg PO DAILY [facility] Last Admin: 04/17/17 10:29 Dose: 240 mg Ceftriaxone Sodium (Rocephin 1 Gram Ivpb) 1 gm in 100 mls @ 100 mls/hr IVPB DAILY [facility] PRN Reason: Protocol Lisinopril (Zestril) 20 mg PO DAILY [facility] Last Admin: 04/17/17 10:27 Dose: 20 mg Pantoprazole Sodium (Protonix Ec Tab) 40 mg PO 0600 [facility] Last Admin: 04/17/17 06:21 Dose: 40 mg Paroxetine HCl (Paxil) 20 mg PO DAILY [facility] Last Admin: 04/17/17 10:28 Dose: 20 mg Zolpidem Tartrate (Ambien) 5 mg PO HS PRN; Protocol PRN Reason: Insomnia Last Admin: 04/16/17 21:45 Dose: 5 mg - Labs Labs: 04/17/17 06:00 04/17/17 06:00 PT 11.2 Seconds (9.9-11.8) 04/15/17 13:11 INR 1.04 (0.93-1.08) 04/15/17 13:11 APTT 29.4 Seconds (23.7-30.8) 04/15/17 13:11 - Constitutional Appears: Well, Non-toxic - Head Exam Head Exam: ATRAUMATIC, NORMOCEPHALIC - Eye Exam Eye Exam: EOMI Pupil Exam: NORMAL ACCOMODATION - ENT Exam ENT Exam: Mucous Membranes Moist - Neck Exam Neck Exam: Full ROM - Respiratory Exam Respiratory Exam: Clear to Ausculation Bilateral - Cardiovascular Exam Cardiovascular Exam: REGULAR RHYTHM Additional comments: periodic asystole - GI/Abdominal Exam GI & Abdominal Exam: Soft, Normal Bowel Sounds - Extremities Exam Extremities Exam: Full ROM - Neurological Exam Neurological Exam: Alert, Normal Gait, Oriented x3 - Skin Skin Exam: Normal Color, Warm Assessment and Plan (1) Escherichia coli urinary tract infection Status: Acute (2) Fever Status: Acute (3) Hypertension Status: Chronic (4) Anemia of chronic disease Status: Chronic (5) Hyponatremia Status: Resolved - Assessment and Plan (Free Text) Plan: Patient IV antibiotic was changed, will monitor for fever, chills. Follow up final blood cultures OOB.
[2017-04-18] MEDS: Pantoprazole 40 mg EC Tab PO SCH (05:37)
[2017-04-18 06:45] LABS: HEMOGLOBIN 10.3 gm/dL (12.0-16.0); MEAN CELL VOLUME 87.9 fL (80.0-105.0); MEAN CORPUSCULAR HEMOGLOBIN 27.6 pg (25.0-35.0); MEAN CORPUSCULAR HGB CONC 31.4 g/dl (31.0-37.0); RBC 3.73 10^6/uL (3.5-6.1); RED CELL DISTRIBUTION WIDTH 14.8 % (11.5-14.5); WHITE BLOOD COUNT 6.7 10^3/ul (4.5-11.0)
[2017-04-18 07:24] LABS: ALBUMIN 3.5 g/dL (3.0-4.8); ALT/SGPT 26 U/L (7-56); AST/SGOT 22 U/L (15-39); BLOOD UREA NITROGEN 17 mg/dL (7-21); CALCIUM 9.2 mg/dL (8.4-10.5); GFR AFRICAN-AMERICAN > 60; GFR NON-AFRICAN AMERICAN > 60
[2017-04-18 08:59] VITALS: BP 155/81; PULSE 69; RESP 22; TEMP 98.8; O2SAT 96
--- NOTE | 2017-04-18 10:01 | CP.PCM.PN ---
Subjective - Date & Time of Evaluation Date of Evaluation: 04/18/17 Time of Evaluation: 10:00 - Subjective Subjective: pt needs angiocath insertion . Objective - Vital Signs/Intake and Output Vital Signs (last 24 hours): Temp Pulse Resp BP Pulse Ox 98.8 F 69 22 155/81 H 96 04/18/17 08:58 04/18/17 08:58 04/18/17 08:58 04/18/17 08:58 04/18/17 08:58 Intake and Output: 04/18/17 04/18/17 06:59 18:59 Intake Total 400 Balance 400 - Medications Medications: Current Medications Acetaminophen (Tylenol 325mg Tab) 650 mg PO Q4H PRN PRN Reason: Temperature Last Admin: 04/17/17 21:32 Dose: 650 mg Atorvastatin Calcium (Lipitor) 10 mg PO DIN [facility] Last Admin: 04/17/17 17:43 Dose: 10 mg Diltiazem HCl (Cardizem Cd) 240 mg PO DAILY [facility] Last Admin: 04/17/17 10:29 Dose: 240 mg Ceftriaxone Sodium (Rocephin 1 Gram Ivpb) 1 gm in 100 mls @ 100 mls/hr IVPB DAILY [facility] PRN Reason: Protocol Last Admin: 04/17/17 12:30 Dose: 100 mls/hr Lisinopril (Zestril) 20 mg PO DAILY [facility] Last Admin: 04/17/17 10:27 Dose: 20 mg Pantoprazole Sodium (Protonix Ec Tab) 40 mg PO 0600 [facility] Last Admin: 04/18/17 05:37 Dose: 40 mg Paroxetine HCl (Paxil) 20 mg PO DAILY [facility] Last Admin: 04/17/17 10:28 Dose: 20 mg Zolpidem Tartrate (Ambien) 5 mg PO HS PRN; Protocol PRN Reason: Insomnia Last Admin: 04/17/17 23:28 Dose: 5 mg - Labs Labs: 04/18/17 06:30 04/18/17 06:30 PT 11.2 Seconds (9.9-11.8) 04/15/17 13:11 INR 1.04 (0.93-1.08) 04/15/17 13:11 APTT 29.4 Seconds (23.7-30.8) 04/15/17 13:11 Assessment and Plan - Assessment and Plan (Free Text) Assessment: 24 guage angiocath inserted in left wrist area.
[2017-04-18] MEDS: cefTRIAXone 1 gm 1 GM/100 ML BAG IVPB SCH (10:20)
[2017-04-18] MEDS: diltiaZEM 240 mg/24 Hours CD Cap PO SCH (10:20)
[2017-04-18] MEDS ORDERED: Cefpodoxime (Vantin) 200 mg Tab PO SCH (22:00)
--- NOTE | 2017-04-18 22:53 | CP.PCM.DIS ---
Provider - Provider Date of Admission: 04/15/17 14:40 Attending physician: Karly Pacheco MD Primary care physician: Karly Pacheco MD Time Spent in preparation of Discharge (in minutes): 45 Diagnosis - Discharge Diagnosis (1) Escherichia coli urinary tract infection Status: Acute (2) Fever Status: Resolved (3) Hypertension Status: Chronic (4) Anemia of chronic disease Status: Chronic (5) Hyponatremia Status: Resolved Hospital Course - Lab Results Lab Results: Most Recent Lab Values WBC 6.7 10^3/ul (4.5-11.0) 04/18/17 06:30 RBC 3.73 10^6/uL (3.5-6.1) 04/18/17 06:30 Hgb 10.3 gm/dL (12.0-16.0) L 04/18/17 06:30 Hct 32.8 % (36.0-48.0) L 04/18/17 06:30 MCV 87.9 fL (80.0-105.0) 04/18/17 06:30 MCH 27.6 pg (25.0-35.0) 04/18/17 06:30 MCHC 31.4 g/dl (31.0-37.0) 04/18/17 06:30 RDW 14.8 % (11.5-14.5) H 04/18/17 06:30 Plt Count 251 10^3/uL (120.0-450.0) 04/18/17 06:30 MPV 10.0 fl (7.0-11.0) 04/18/17 06:30 Gran % 83.0 % (50.0-68.0) H 04/15/17 13:11 Lymph % (Auto) 8.7 % (22.0-35.0) L 04/15/17 13:11 [place] % (Auto) 8.0 % (1.0-6.0) H 04/15/17 13:11 Eos % (Auto) 0.1 % (1.5-5.0) L 04/15/17 13:11 Baso % (Auto) 0.2 % (0.0-3.0) 04/15/17 13:11 Gran # 10.42 (1.4-6.5) H 04/15/17 13:11 Lymph # 1.1 (1.2-3.4) L 04/15/17 13:11 [place] # 1.0 (0.1-0.6) H 04/15/17 13:11 Eos # 0.0 (0.0-0.7) 04/15/17 13:11 Baso # 0.03 K/mm3 (0.0-2.0) 04/15/17 13:11 PT 11.2 Seconds (9.9-11.8) 04/15/17 13:11 INR 1.04 (0.93-1.08) 04/15/17 13:11 APTT 29.4 Seconds (23.7-30.8) 04/15/17 13:11 pO2 81 mm/Hg (30-55) H 04/15/17 13:11 VBG pH 7.42 (7.32-7.43) 04/15/17 13:11 VBG pCO2 35.0 (40-60) L 04/15/17 13:11 VBG HCO3 22.7 mmol/l (21-28) 04/15/17 13:11 VBG Total CO2 23.8 mmol.L (22-28) 04/15/17 13:11 VBG O2 Sat (Calc) 97.4 % (40-65) H 04/15/17 13:11 VBG Base Excess -1.4 mmol/L (0.0-2.0) L 04/15/17 13:11 VBG Potassium 4.4 mmol/L (3.6-5.2) 04/15/17 13:11 Sodium 134.0 mmol/L (132-148) 04/15/17 13:11 Chloride 107.0 mmol/L (98-107) 04/15/17 13:11 Glucose 111 mg/dl (65-105) H 04/15/17 13:11 Lactate 1.1 mmol/L (0.7-2.1) 04/15/17 13:11 FiO2 21.0 % 04/15/17 13:11 Sodium 140 mmol/L (132-148) 04/18/17 06:30 Potassium 4.3 mmol/L (3.6-5.0) 04/18/17 06:30 Chloride 105 mmol/L (95-110) 04/18/17 06:30 Carbon Dioxide 22 mmol/L (21-33) 04/18/17 06:30 Anion Gap 17 (10-20) 04/18/17 06:30 BUN 17 mg/dL (7-21) 04/18/17 06:30 Creatinine 0.9 mg/dL (0.5-1.4) 04/18/17 06:30 Est GFR ( Amer) > 60 04/18/17 06:30 Est GFR (Non-Af Amer) > 60 04/18/17 06:30 Random Glucose 119 mg/dL (70-110) H 04/18/17 06:30 Calcium 9.2 mg/dL (8.4-10.5) 04/18/17 06:30 Phosphorus 3.9 mg/dL (2.5-4.5) 04/15/17 13:11 Magnesium 1.5 mg/dL (1.7-2.2) L 04/15/17 13:11 Total Bilirubin 0.4 mg/dL (0.2-1.3) 04/18/17 06:30 AST 22 U/L (15-39) 04/18/17 06:30 ALT 26 U/L (7-56) 04/18/17 06:30 Alkaline Phosphatase 123 U/L (38-133) 04/18/17 06:30 Total Protein 7.0 g/dL (5.8-8.3) 04/18/17 06:30 Albumin 3.5 g/dL (3.0-4.8) 04/18/17 06:30 Globulin 3.4 gm/dL 04/18/17 06:30 Albumin/Globulin Ratio 1.0 (1.1-1.8) L 04/18/17 06:30 Venous Blood Potassium 4.4 mmol/L (3.6-5.2) 04/15/17 13:11 Urine Color Yellow (YELLOW) 04/15/17 13:50 Urine Appearance Cloudy (CLEAR) 04/15/17 13:50 Urine pH 6.0 (4.7-8.0) 04/15/17 13:50 Ur Specific [place] 1.020 (1.005-1.035) 04/15/17 13:50 Urine Protein 100 mg/dL (<30 mg/dL) H 04/15/17 13:50 Urine Glucose (UA) Negative mg/dL (NEGATIVE) 04/15/17 13:50 Urine Ketones Negative mg/dL (NEGATIVE) 04/15/17 13:50 Urine Blood Small (NEGATIVE) H 04/15/17 13:50 Urine Nitrate Positive (NEGATIVE) H 04/15/17 13:50 Urine Bilirubin Negative (NEGATIVE) 04/15/17 13:50 Urine Urobilinogen 0.2 E.U./dL (<1 E.U./dL) 04/15/17 13:50 Ur Leukocyte Esterase Large [place]/uL (NEGATIVE) H 04/15/17 13:50 Urine RBC 1 - 3 /hpf (0-2) 04/15/17 13:50 Urine WBC Tntc /hpf (0-6) 04/15/17 13:50 Ur Epithelial Cells 0 - 2 /hpf (0-5) 04/15/17 13:50 Urine Bacteria Many (NEG) 04/15/17 13:50 - Hospital Course Hospital Course: 81 yo female admitted for fever and chills due to urinary tract infection. Urinalysis showed pyuria and hematuria. WBC was elevated at 11.5 . Urine blood culture was positive for Escherichia coli.Blood cultures were negative The patient condition during hospitalization improved, she was afebrile . She was treated with IV Meropenem and Rocephin. Discharge Exam - Head Exam Head Exam: ATRAUMATIC, NORMAL INSPECTION, NORMOCEPHALIC - Eye Exam Eye Exam: Normal appearance Pupil Exam: NORMAL ACCOMODATION, PERRL - ENT Exam ENT Exam: Mucous Membranes Moist - Neck Exam Neck exam: Full Rom - Respiratory Exam Respiratory Exam: Clear to PA & Lateral, NORMAL BREATHING PATTERN - Cardiovascular Exam Cardiovascular Exam: REGULAR RHYTHM, +S1, +S2 - GI/Abdominal Exam GI & Abdominal Exam: Normal Bowel Sounds, Soft - Extremities Exam Extremities exam: full ROM - Back Exam Back exam: FULL ROM - Neurological Exam Neurological exam: Alert, Normal Gait, Oriented x3, Reflexes Normal - Psychiatric Exam Psychiatric exam: Normal Affect, Normal Mood - Skin Skin Exam: Normal Color, Warm Discharge Plan - Discharge Medications Prescriptions: Cefpodoxime [Vantin] 200 mg PO Q12 7 Days - Follow Up Plan Condition: GOOD Patient education suggested?: Yes Instructions: Urinary Tract Infection in Women (DC), Sepsis (GEN) Additional Instructions: If you experience any Shortness of breath chest pain fever Nausea or vomiting contact your primary care physician and go to the nearest Emergency room. Please call and make an appointment for Saturday with Dr. Pacheco.
--- NOTE | 2017-04-19 09:40 | PN ---
DATE: 04/18/2017 SUBJECTIVE: The patient is seen earlier today in room 372, bed 2. No fevers and no chills. No nausea. No vomiting. PHYSICAL EXAMINATION: VITAL SIGNS: Temperature of 98, blood pressure is 150/80, and respiratory rate of 22. HEENT: Unremarkable. NECK: Supple. CARDIOPULMONARY: Heart sounds, normal S1 and S2. LUNGS: Decreased breath sounds. ABDOMEN: Soft and nontender. LABORATORY DATA: Reveals a white count of 6.7, hemoglobin of 10, and platelets of 251, and coagulation is noting. Chemistry reveals a BUN of 17, creatinine of 0.9. Urinalysis is noted that too numerous to count WBCs in the urine with many bacteria. Microbiology reveals Escherichia coli in the urine and that she is pansensitive and sensitive to Cipro and Bactrim and review of orders the patient is on ceftriaxone. ASSESSMENT AND PLAN: The patient is a 81-year-old female with sepsis with Escherichia coli in the urine and pseudogout of the right shoulder and with history of extended-spectrum beta lactamases and vancomycin-resistant enterococci, history of Escherichia coli bacteremia and currently on ceftriaxone on day #3, may switch to p.o. Vantin 200 mg p.o. b.i.d. x7 days. Puneet David MD
== END 2017-04-18 16:21 | disposition home or self-care (01) | DRG 872 ==
LOC: ED 12:41 → ERH 14:40 → 3RSO 16:53
PROVIDERS: ADMIT Family Medicine; ATTEND Family Medicine
DX: A41.51 Sepsis due to Escherichia coli [E. coli] (principal); N39.0 Urinary tract infection, site not specified; I48.91 Unspecified atrial fibrillation; R00.1 Bradycardia, unspecified; E87.1 Hypo-osmolality and hyponatremia; D63.8 Anemia in other chronic diseases classified elsewhere; B96.20 Unspecified Escherichia coli [E. coli] as the cause of diseases classified elsewhere; E66.9 Obesity, unspecified; Z68.31 Body mass index [BMI] 31.0-31.9, adult; E78.5 Hyperlipidemia, unspecified; I10 Essential (primary) hypertension; K21.9 Gastro-esophageal reflux disease without esophagitis; M19.90 Unspecified osteoarthritis, unspecified site; N31.2 Flaccid neuropathic bladder, not elsewhere classified; Z85.42 Personal history of malignant neoplasm of other parts of uterus; F32.89 Other specified depressive episodes; M81.0 Age-related osteoporosis without current pathological fracture; Z87.440 Personal history of urinary (tract) infections; Z90.49 Acquired absence of other specified parts of digestive tract; Z90.710 Acquired absence of both cervix and uterus; E78.00 Pure hypercholesterolemia, unspecified; G89.29 Other chronic pain; R11.0 Nausea; M25.551 Pain in right hip; R26.81 Unsteadiness on feet; K29.70 Gastritis, unspecified, without bleeding; K64.9 Unspecified hemorrhoids; F41.9 Anxiety disorder, unspecified; I83.93 Asymptomatic varicose veins of bilateral lower extremities; M11.211 Other chondrocalcinosis, right shoulder

== ENCOUNTER 2017-09-14 07:46 | Inpatient (IN) | payer MEDICARE, OTHER ==
[2017-09-14 07:47] VITALS: PULSE 104
[2017-09-14 07:59] VITALS: BMI 29.2
[2017-09-14 08:43] LABS: BASO # 0.02 K/mm3 (0.0-2.0); BASO % 0.2 % (0.0-3.0); EOS # 0.1 (0.0-0.7); EOS % 0.5 % (1.5-5.0); GRAN # 8.57 (1.4-6.5); GRAN % 86.4 % (50.0-68.0); HEMATOCRIT 34.6 % (36.0-48.0); LYMPH # 0.7 (1.2-3.4); LYMPH % 6.8 % (22.0-35.0); MEAN CELL VOLUME 89.9 fl (80.0-105.0); MEAN CORPUSCULAR HEMOGLOBIN 28.8 pg (25.0-35.0); MEAN CORPUSCULAR HGB CONC 32.1 g/dl (31.0-37.0); MEAN PLATELET VOLUME 9.9 fl (7.0-11.0); MONO # 0.6 (0.1-0.6); MONO % 6.1 % (1.0-6.0); RED CELL DISTRIBUTION WIDTH 14.6 % (11.5-14.5); WHITE BLOOD COUNT 9.9 10^3/ul (4.5-11.0)
--- NOTE | 2017-09-14 08:44 | ED PDOC ---
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 Young is a 81 year old female [place] resident with a past medical history significant for HTN, dyslipidemia, obesity, uterine cancer S/P hysterectomy, S/ P cholecystectomy, osteoarthritis, GERD, depression, E. 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 Patient is accompanied by her daughter who provides translation for HPI information. She reports that she found her mother to be in distress this morning complaining of intermittent nausea and epigastric abdominal pain without vomiting or diarrhea. She then took patients axillary temperature and it was found to be 103.4. Patient denies any sick contacts, association with food/eating, headache, changes in her vision, rhinorrhea, sore throat, chest pain, palpitations, SOB, cough, wheezing, vomiting, diarrhea, constipation, burning/pain with urination, rashes/ulcers, or any numbness/tingling/weakness of any extremity. (Ricardo Magaña) Past Medical History - Provider Review Nursing Documentation Reviewed: Yes - Travel History Have you recently traveled outside [place] w/in the past 3 mons?: No - Past History Past History: No Previous - Infectious Disease Hx of Infectious Diseases: None - Reproductive Menopause: Yes - Past Medical History Past Medical History: No Previous - Cardiac Hx Hypertension: Yes Hx Peripheral Edema: Yes (lle +1 at times) - Pulmonary Hx Respiratory Disorders: No - Neurological Hx Dizziness: No - HEENT Hx HEENT Disorder: No - Renal Hx Renal Disorder: No - Endocrine/Metabolic Hx Endocrine Disorders: No - Hematological/Oncological Hx Blood Disorders: No - Integumentary Hx Dermatological Disorder: No - Musculoskeletal/Rheumatological Hx Musculoskeletal Disorders: Yes (chronic r hip pain) Hx Degenerative Joint Disease: Yes Hx Osteoarthritis: Yes - Gastrointestinal Hx Gall Bladder Disease: Yes (galbladder removal) - Genitourinary/Gynecological Hx Genitourinary Disorders: (urgency/frequency/HESITANCY-ATONIC BLADDER) - Psychiatric Hx Emotional Abuse: No Hx Physical Abuse: No Hx Substance Use: No - Past Surgical History Past Surgical History: No Previous - Surgical History Hx Cholecystectomy: Yes Other/Comment: rt eye cataract Sep 1103/2017 - Anesthesia Hx Anesthesia: Yes Hx Anesthesia Reactions: No Hx Malignant Hyperthermia: No - Suicidal Assessment Feels Threatened In Home Enviroment: No <Ricardo Magaña - Last Filed: 09/14/17 09:21> Family/Social History - Physician Review Nursing Documentation Reviewed: Yes Family/Social History: No Known Family HX Smoking Status: Never Smoked Hx Alcohol Use: No Hx Substance Use: No <Ricardo Magaña - Last Filed: 09/14/17 09:21> Allergies/Home Meds <Ricardo Magaña - Last Filed: 09/14/17 09:21> <Ammon Lipscomb - Last Filed: 09/14/17 12:28> Allergies/Adverse Reactions: Allergies No Known Allergies Allergy (Verified 01/09/17 11:22) Home Medications: Home Meds Medication Instructions Recorded Confirmed Atorvastatin [Lipitor] 10 mg PO 1700 01/17/17 09/14/17 Aspirin [Ecotrin] 81 mg PO DAILY 03/22/17 09/14/17 Metoprolol Tartrate [Lopressor] 1 tab PO BID 04/15/17 09/14/17 Zolpidem [Ambien] 1 tab PO HS PRN 04/15/17 09/14/17 Difluprednate [Durezol] 5 ml OD BID 09/14/17 09/14/17 Esomeprazole Magnesium [Nexium] 40 mg PO DAILY 09/14/17 09/14/17 Lisinopril [Zestril] 15 mg PO BID 09/14/17 09/14/17 Meloxicam [Mobic] 7.5 mg PO DAILY 09/14/17 09/14/17 Paroxetine HCl [Paxil] 20 mg PO DAILY 09/14/17 09/14/17 Tobramycin 0.3% [Tobrex] 1 drop OD QID 09/14/17 09/14/17 hydrALAZINE [hydralazine 20 mg PO BID 09/14/17 09/14/17 Hydrochloride] Review of Systems - Physician Review All systems were reviewed & negative as marked: Yes - Review of Systems Constitutional: Fevers (As per HPI). absent: Normal Eyes: Normal. absent: Vision Changes ENT: Normal. absent: Sore Throat, Rhinorrhea Respiratory: Normal. absent: SOB, Cough, Wheezing Cardiovascular: Normal. absent: Chest Pain, Palpitations Gastrointestinal: Abdominal Pain, Nausea. absent: Normal, Constipation, Diarrhea, Vomiting, Hematochezia, Hematemesis Genitourinary Female: Frequency. absent: Normal, Dysuria, Hematuria Musculoskeletal: Normal. absent: Arthralgias, Back Pain, Neck Pain Skin: Normal. absent: Rash, Ulcer Neurological: Normal. absent: Headache Endocrine: Normal Hemo/Lymphatic: Normal Psychiatric: Normal <Ricardo Magaña - Last Filed: 09/14/17 09:21> Physical Exam Vital Signs Reviewed: Yes Temperature: Febrile Blood Pressure: Normal Pulse: Regular Respiratory Rate: Normal Appearance: Positive for: Well-Appearing, Non-Toxic, Comfortable Pain Distress: None Mental Status: Positive for: Alert and Oriented X 3 - Systems Exam Head: Present: Atraumatic, Normocephalic Pupils: Present: PERRL Extroacular Muscles: Present: EOMI Conjunctiva: Present: Normal Mouth: Present: Moist Mucous Membranes Pharnyx: Present: Normal. No: ERYTHEMA, EXUDATE, TONSILS ENLARGED Nose (External): Present: Atraumatic Nose (Internal): Present: Normal Inspection, No Active Bleeding Neck: Present: Normal Range of Motion, Trachea Midline. No: Meningeal Signs, MIDLINE TENDERNESS, Paraspinal Tenderness, JVD, Lymphadenopathy Respiratory/Chest: Present: Clear to Auscultation, Good Air Exchange. No: Respiratory Distress, Accessory Muscle Use, Wheezes, Decreased Breath Sounds, Rales, Retracting, Rhonchi, Tachypneic, Tender to Palpation Cardiovascular: Present: Regular Rate and Rhythm, Normal S1, S2, Peripheal Pulses Present. No: Murmurs, Irregular Rhythm, Tachycardic, Bradycardic Abdomen: Present: Normal Bowel Sounds. No: Tenderness, Distention, Peritoneal Signs, Rebound, Guarding, McBurney's Point Tender, Rovsing's Sign Present, Hernias Back: Present: Normal Inspection. No: CVA Tenderness, Midline Tenderness, Paraspinal Tenderness Upper Extremity: Present: Normal Inspection. No: Cyanosis, Edema Lower Extremity: Present: Normal Inspection. No: Edema Neurological: Present: GCS=15, CN II-XII Intact, Speech Normal Skin: Present: Warm, Dry, Normal Color. No: Rashes Lymphatic: No: Cervical Adenopathy Psychiatric: Present: Alert, Oriented x 3, Normal Insight, Normal Concentration <Ricardo Magaña - Last Filed: 09/14/17 09:21> Vital Signs Temp Pulse Resp BP Pulse Ox 09/14/17 10:51 100.7 F H 57 L 18 127/49 L 95 09/14/17 07:47 102.2 F H 64 18 150/48 L 96 Medical Decision Making - Lab Interpretations I have reviewed the lab results: Yes - RAD Interpretation Awning Craftsman: ED Physician, Radiologist - EKG Interpretation Interpreted by ED Physician: Yes Type: 12 lead EKG <Ricardo Magaña - Last Filed: 09/14/17 09:21> <Ammon Lipscomb - Last Filed: 09/14/17 12:28> ED Course and Treatment: 09/14/17 08:48 Impression: 81 year old female [place] resident with a past medical history significant for HTN, dyslipidemia, obesity, uterine cancer S/P hysterectomy, S/ P cholecystectomy, osteoarthritis, GERD, depression, E. 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, pseudogout and inflammatory arthritis of the right shoulder who presents to the [facility] with a chief complaint of nausea since she awoke this morning and axillary fever to 103.4 Plan: -CBC, CMP, Lipase/Amylase, INR/aPTT, VBG, Blood Culture, and UA -EKG -Chest X-ray (portable) -CT abdomen/pelvis w/ IV contrast -Protonix 40mg IVP and Zofran 4mg IVP STAT -Tylenol 650mg STAT -Reassess and disposition Prior Visits: Patient seen and evaluated on multiple occasions for fever/UTI within the past year (Ricardo Magaña) 09/14/17 09:01 Patient Seen With Resident: In agreement with resident note which contains more details about the patient. Patient was seen and evaluated with resident. Came up with plan and treatment together. Patient presents complaining of nausea associated with a fever that began this morning. Plan: -- Labs -- Chest X-ray -- CT Abdomen/Pelvis -- Protonix -- Tylenol 09/14/17 12:[address] Cuba with Dr. Magaña. Dr. Cuba recommended hidalgo and IV antibiotics. Discussed case with Dr. Ferro who is covering for Dr. Rachel and he knows patient stating that she can decompensate considering her history of UTIs and nonmpliance. Considering her ARF and Urinary retention with hydro on CT we will admit her for IV antibiotics. Rocephin IV ordered. Case discussed with family and patient who know plan for admission. Translation was offered but patient requested daughter. (Ammon Lipscomb) - Lab Interpretations Lab Results: 09/14/17 08:25 09/14/17 08:25 Lab Results 09/14/17 09:00: Urine Color Yellow, Urine Appearance Cloudy, Urine pH 6.0, Ur Specific [place] 1.025, Urine Protein 30 H, Urine Glucose (UA) Negative, Urine Ketones Negative, Urine Blood Small H, Urine Nitrate Negative, Urine Bilirubin Negative, Urine Urobilinogen 0.2, Ur Leukocyte Esterase Large H, Urine RBC 5 - 10, Urine WBC Tntc, Ur Epithelial Cells 0 - 2, Urine Bacteria Mod 09/14/17 08:25: pO2 54, VBG pH 7.33, VBG pCO2 39.0 L, VBG HCO3 20.6 L, VBG Total CO2 21.8 L, VBG O2 Sat (Calc) 89.3 H, VBG Base Excess -4.9 L, VBG Potassium 4.4, Sodium 139.0, Chloride 109.0 H, Glucose 131 H, Lactate 1.8, FiO2 21.0, Venous Blood Potassium 4.4 09/14/17 08:25: Sodium 140, Chloride 109 H, Potassium 4.3, Carbon Dioxide 20 L, Anion Gap 15, BUN 37 H, Creatinine 1.5 H, Est GFR ( Amer) 40, Est GFR ( Non-Af Amer) 33, Random Glucose 127 H, Calcium 9.3, Phosphorus 3.7, Magnesium 1.3 L, Total Bilirubin 0.3, AST 19, ALT 24, Alkaline Phosphatase 101, Lactate Dehydrogenase 433, Total Creatine Kinase 57, Troponin I < 0.01 D, Total Protein 6.9, Albumin 3.7, Globulin 3.2, Albumin/Globulin Ratio 1.2, Amylase 72, Lipase 216 09/14/17 08:25: PT 11.6, INR 1.05, APTT 23.3 L 09/14/17 08:25: WBC 9.9 D, RBC 3.85, Hgb 11.1 L, Hct 34.6 L, MCV 89.9, MCH 28.8 , MCHC 32.1, RDW 14.6 H, Plt Count 216, MPV 9.9, Gran % 86.4 H, Lymph % (Auto) 6.8 L, [place] % (Auto) 6.1 H, Eos % (Auto) 0.5 L, Baso % (Auto) 0.2, Gran # 8.57 H , Lymph # 0.7 L, [place] # 0.6, Eos # 0.1, Baso # 0.02 - RAD Interpretation Radiology Orders: 09/14/17 08:27 CHEST PORTABLE [RAD] Stat 09/14/17 09:18 ABDOMEN & PELVIS [ABD & PELVIS W/O PO OR IV CONT] [CT] Stat - Medication Orders Current Medication Orders: Sodium Chloride (Sodium Chloride 0.9%) 1,000 mls @ 100 mls/hr IV .Q10H BONNIE Last Admin: 09/14/17 09:48 Dose: 100 mls/hr eMAR Start Stop Document 09/14/17 09:48 SRE (Rec: 09/14/17 09:48 SRE [id number]) Intravenous Solution Start Date 09/14/17 Start Time 09:48 Ceftriaxone Sodium (Rocephin 1 Gram Ivpb) 1 gm in 100 mls @ 200 mls/hr IVPB STAT STA PRN Reason: Protocol Stop: 09/14/17 12:38 Discontinued Medications Acetaminophen (Tylenol 325mg Tab) 650 mg PO STAT STA Stop: 09/14/17 08:45 Last Admin: 09/14/17 08:53 Dose: 650 mg MAR Pain/Vitals Document 09/14/17 08:53 SRE (Rec: 09/14/17 08:54 SRE [id number]) Pain Reassessment Is This A Pain ReAssessment? Yes Sleep Is patient sleeping during reassessment? No Re-Assess: HIWOT Pain/Vitals Document 09/14/17 09:53 SRE (Rec: 09/14/17 12:22 SRE [id number]) Pain Reassessment Is This A Pain ReAssessment? Yes Ondansetron HCl (Zofran Inj) 4 mg IVP STAT STA Stop: 09/14/17 08:34 Last Admin: 09/14/17 08:48 Dose: 4 mg IVP Administration Document 09/14/17 08:48 SRE (Rec: 09/14/17 08:48 SRE [id number]) Charges for Administration # of IVP Administrations 1 Pantoprazole Sodium (Protonix Inj) 40 mg IVP STAT STA Stop: 09/14/17 08:34 Last Admin: 09/14/17 08:48 Dose: 40 mg IVP Administration Document 09/14/17 08:48 SRE (Rec: 09/14/17 08:48 SRE [id number]) Charges for Administration # of IVP Administrations 1 <Ricardo Magaña - Last Filed: 09/14/17 09:21> - Scribe Statement The provider has reviewed the documentation as recorded by the Scribe <Ammon Lipscomb - Last Filed: 09/14/17 12:28> - Scribe Statement Jose Herrera Provider Scribe Attestation: All medical record entries made by the Scribe were at my direction and personally dictated by me. I have reviewed the chart and agree that the record accurately reflects my personal performance of the history, physical exam, medical decision making, and the department course for this patient. I have also personally directed, reviewed, and agree with the discharge instructions and disposition. (Ammon Lipscomb) Disposition/Present on Arrival - Present on Arrival History of DVT/PE: No History of Uncontrolled Diabetes: No Urinary Catheter: No History of Decub. Ulcer: No History Surgical Site Infection Following: None <Ricardo Magaña - Last Filed: 09/14/17 09:21> - Present on Arrival Any Indicators Present on Arrival: No - Disposition Have Diagnosis and Disposition been Completed?: Yes Disposition Time: 12:27 Patient Plan: Admission <Ammon Lipscomb - Last Filed: 09/14/17 12:28> - Disposition Diagnosis: UTI (urinary tract infection), Acute renal failure, Dehydration, Urinary retention, Hydronephrosis Disposition: HOSPITALIZED Condition: FAIR Referrals: Karly Barron MD [Primary Care Provider] - Follow up with primary Forms: [employer] (Maori)
[2017-09-14 08:47] LABS: VENOUS BLOOD GAS BASE EXCESS -4.9 mmol/L (0.0-2.0); VENOUS BLOOD PH 7.33 (7.32-7.43)
[2017-09-14 08:55] LABS: INR 1.05 (0.93-1.08)
[2017-09-14 08:56] LABS: PARTIAL THROMBOPLASTIN TIME 23.3 Seconds (25.1-36.5)
[2017-09-14 09:00] LABS: ALB/GLOB RATIO 1.2 (1.1-1.8); ALKALINE PHOSPHATASE 101 U/L (38-126); ALT/SGPT 24 U/L (7-56); AMYLASE 72 U/L (35-125); AST/SGOT 19 U/L (14-36); BILIRUBIN,TOTAL 0.3 mg/dL (0.2-1.3); BLOOD UREA NITROGEN 37 mg/dL (7-21); CALCIUM 9.3 mg/dL (8.4-10.5); CARBON DIOXIDE 20 mmol/L (21-33); CHLORIDE 109 mmol/L (98-107); GFR AFRICAN-AMERICAN 40; GLUCOSE,RANDOM 127 mg/dL (70-110); LIPASE 216 U/L (23-300); MAGNESIUM 1.3 mg/dL (1.7-2.2); PHOSPHOROUS 3.7 mg/dL (2.5-4.5); POTASSIUM 4.3 mmol/L (3.6-5.0); SODIUM 140 mmol/L (132-148); TOTAL PROTEIN 6.9 g/dL (5.8-8.3)
[2017-09-14 09:11] LABS: TROPONIN I < 0.01 ng/mL
[2017-09-14 09:16] LABS: URINE BILIRUBIN NEGATIVE (NEGATIVE); URINE BLOOD SMALL (NEGATIVE); URINE GLUCOSE (UA) NEGATIVE (NEGATIVE); URINE KETONE NEGATIVE (NEGATIVE); URINE LEUKOCYTE ESTERASE LARGE Leu/uL (NEGATIVE); URINE PROTEIN 30 mg/dL (<30 mg/dL); URINE UROBILINOGEN 0.2 E.U./dL (<1 E.U./dL)
[2017-09-14 09:23] LABS: URINE APPEARANCE CLOUDY (CLEAR); URINE COLOR YELLOW (YELLOW)
[2017-09-14 09:24] LABS: URINE WBC TNTC /hpf (0-6)
[2017-09-14 09:25] LABS: URINE EPITHELIAL CELLS 0 - 2 /hpf (0-5)
[2017-09-14 09:26] LABS: URINE BACTERIA MOD (NEG)
--- NOTE | 2017-09-14 09:45 | RAD ---
HISTORY: Sepsis Patient COMPARISON: Comparison chest 07/2017. FINDINGS: LUNGS: Mild bibasilar atelectasis. Vague opacity seen in the right lung apex paratracheal region likely represents ectatic great vessels. PLEURA: No significant pleural effusion identified, no pneumothorax apparent. CARDIOVASCULAR: Heart size upper limits of normal. Prominent pulmonary arteries. OSSEOUS STRUCTURES: No significant abnormalities. VISUALIZED UPPER ABDOMEN: Normal. OTHER FINDINGS: None. IMPRESSION: Mild bibasilar atelectasis.
[2017-09-14] MEDS: Sodium Chloride 0.9% 1,000 ML IV SCH ×2 (09:48→15:27)
--- NOTE | 2017-09-14 11:24 | CT ---
PROCEDURE: CT scan abdomen pelvis dated 10/04/2017 HISTORY: Left flank pain COMPARISON: None. TECHNIQUE: Contiguous axial images of the abdomen and pelvis without oral or IV contrast coronal and Sagittal reformats generated. Radiation dose: Total exam DLP = 606.48 mGy-cm. This CT exam was performed using one or more of the following dose reduction techniques: Automated exposure control, adjustment of the mA and/or kV according to patient size, and/or use of iterative reconstruction technique. FINDINGS: LOWER THORAX: Heart appears mildly enlarged. No significant pericardial effusion. Mild passive/dependent type atelectasis both lower lung barbosa. No focal consolidation or effusion. Small calcified granuloma left lung base ; consistent with prior exposure to granulomatous disease process. There is a small hiatal hernia with wall thickening of the distal esophagus likely due to protrusion of gastric mucosa. Esophagitis or other intrinsic/invasive wall lesion not excluded. Clinical correlation recommended. LIVER: Liver exhibits normal size measuring approximately 14.1 cm in CC dimension. No obvious hepatic mass collection or calcification. GALLBLADDER AND BILE DUCTS: Gallbladder has been surgically resected with clips again seen in the gallbladder fossa. PANCREAS: The pancreas is slightly atrophic and fatty replaced. . SPLEEN: Spleen exhibits normal size and attenuation pattern without mass collection or calcification. ADRENALS: There are no adrenal lesions. KIDNEYS AND URETERS: Kidneys exhibit relatively symmetric size. . There is slight of cortical volume loss. There are at least 2 cortical cysts left kidney ; posterior midpole cyst measures approximately 3.1 cm. Lateral mid to lower pole cyst measures approximately 2.5 x 1.9 cm. There is moderate bilateral hydronephrosis however no evidence of renal calculi. . Mild infiltration changes are seen within the perinephric fat bilaterally. The artifact inferior margin of the urinary bladder is incompletely visualized due to significant streak and beam hardening artifact arising from a right total hip replacement. Urinary bladder is markedly distended; rule out urinary retention. BLADDER: As above. REPRODUCTIVE: Apparent hysterectomy. APPENDIX: Appendix is not seen with any certainty hand there does appear to be radiopaque suture along the medial aspect of the cecum -expected location of the appendix. Clinical correlation with surgical history recommended. BOWEL: Evaluation of the bowel is limited due to the lack of oral contrast material. To the stomach is incompletely distended which presumably accounts for slight thick-walled appearance. Visualized loops of small bowel exhibit normal contour and caliber. No evidence of acute mechanical small bowel obstruction. . Stool and air seen throughout the most of the colon though the sigmoid and rectum relatively collapsed. Scattered colonic diverticula. No radiographic evidence of acute diverticulitis. PERITONEUM: Unremarkable. No fluid collection. No free air. LYMPH NODES: Unremarkable. No enlarged lymph nodes. VASCULATURE: Partially calcified atherosclerotic plaque seen along the abdominal aorta and iliac arteries. No abdominal aortic or iliac artery aneurysm. BONES: Mild multilevel degenerative spondylosis of the lower thoracic and lumbar spine. No acute compression fractures no retropulsed fragments. Right total hip replacement. OTHER FINDINGS: None. IMPRESSION: Bilateral hydronephrosis with marked urinary bladder distention possibly due to urinary retention. Clinical correlation recommended. No evidence of obstructing calculi. . There are least 2 left renal cysts. Status post cholecystectomy. Small hiatal hernia with slight wall thickening of distal esophagus likely due to protrusion of gastric mucosa. Esophagitis or other intrinsic/invasive wall lesion not excluded. Appendix not seen with what appears represent radiopaque suture along the medial aspect of the cecum ; clinical correlation with surgical history. Hysterectomy.
[2017-09-14] MEDS ORDERED: cefTRIAXone 1 gm 1 GM/100 ML BAG IVPB STA (12:09)
--- NOTE | 2017-09-14 13:33 | CP.PCM.HP ---
<Leo Grace - Last Filed: 09/14/17 19:01> History of Present Illness - History of Present Illness History of Present Illness: 82 year old female [place] resident with a past medical history significant for HTN, dyslipidemia, obesity, uterine cancer S/P hysterectomy, osteoarthritis, GERD, depression, E. 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 Son is at bedside who provides translation for information. Son says she self catheterizes at home, however she does this sparingly since she has some capability to void on her own. He states that she woke up this morning and had a fever along with nausea. Patient denies any sick contacts, recent travel,association with food/eating, headache, changes in her vision, rhinorrhea, sore throat, chest pain, palpitations, SOB, cough, wheezing, vomiting, diarrhea, constipation, burning/pain with urination, rashes/ulcers, or any numbness/tingling/weakness of any extremity. Past medical history: See HPI Past surgical history: Cholecystectomy, Hysterectomy Allergies: NKDA Medications: [facility] [place]. [facility]acy was closed. Verify medications in the morning. [phone] Social history: Denies alcohol or tobacco use. Denies illicit drug use. Lives alone. Performs ADL'S and IDL's with assistance from son and walker. Present on Admission - Present on Admission Any Indicators Present on Admission: No Review of Systems - Constitutional Constitutional: As Per HPI - EENT Eyes: As Per HPI Ears: As Per HPI Nose/Mouth/Throat: As Per HPI - Breasts Breasts: As Per HPI - Cardiovascular Cardiovascular: As Per HPI - Respiratory Respiratory: As Per HPI - Gastrointestinal Gastrointestinal: As Per HPI - Genitourinary Genitourinary: Difficulty Urinating, Urinary Hesitance, Voiding Freq/Small Amts - Musculoskeletal Musculoskeletal: As Per HPI - Integumentary Integumentary: As Per HPI - Neurological Neurological: As Per HPI - Psychiatric Psychiatric: As Per HPI - Endocrine Endocrine: As Per HPI - Hematologic/Lymphatic Hematologic: As Per HPI Past Patient History - Infectious Disease Hx of Infectious Diseases: None - Past Medical History & Family History Past Medical History?: Yes - Past Social History Smoking Status: Never Smoked - CARDIAC Hx Hypertension: Yes Hx Peripheral Edema: Yes (lle +1 at times) - PULMONARY Hx Respiratory Disorders: No - NEUROLOGICAL Hx Dizziness: No - HEENT Hx HEENT Problems: No - RENAL Hx Chronic Kidney Disease: No - ENDOCRINE/METABOLIC Hx Endocrine Disorders: No - HEMATOLOGICAL/ONCOLOGICAL Hx Blood Disorders: No - INTEGUMENTARY Hx Dermatological Problems: No - MUSCULOSKELETAL/RHEUMATOLOGICAL Hx Musculoskeletal Disorders: Yes (chronic r hip pain) Hx Degenerative Joint Disease: Yes Hx Osteoarthritis: Yes - GASTROINTESTINAL Hx Gall Bladder Disease: Yes (galbladder removal) - GENITOURINARY/GYNECOLOGICAL Hx Genitourinary Disorders: (urgency/frequency/HESITANCY-ATONIC BLADDER) - PSYCHIATRIC Hx Emotional Abuse: No Hx Physical Abuse: No Hx Substance Use: No - SURGICAL HISTORY Hx Cholecystectomy: Yes Other/Comment: rt eye cataract Sep 1103/2017 - ANESTHESIA Hx Anesthesia: Yes Hx Anesthesia Reactions: No Hx Malignant Hyperthermia: No Meds Allergies/Adverse Reactions: Allergies Allergy/AdvReac Type Severity Reaction Status Date / Time No Known Allergies Allergy Verified 09/14/17 14:32 Physical Exam - Head Exam Head Exam: ATRAUMATIC, NORMAL INSPECTION, NORMOCEPHALIC - Eye Exam Eye Exam: EOMI, Normal appearance, PERRL. absent: Periorbital tenderness Pupil Exam: NORMAL ACCOMODATION, PERRL. absent: Irregular, Unequal - ENT Exam ENT Exam: Mucous Membranes Moist, Normal Exam, Normal Oropharynx - Neck Exam Neck exam: Positive for: Normal Inspection. Negative for: Lymphadenopathy, Thyromegaly - Respiratory Exam Respiratory Exam: Clear to Auscultation Bilateral, NORMAL BREATHING PATTERN. absent: Chest Wall Tenderness, Prolonged Expiratory Phase, Respiratory Distress - Cardiovascular Exam Cardiovascular Exam: REGULAR RHYTHM, +S1, +S2 - GI/Abdominal Exam GI & Abdominal Exam: Normal Bowel Sounds, Soft. absent: Hypoactive Bowel Sounds , Organomegaly, Tenderness - Extremities Exam Extremities exam: Positive for: normal inspection. Negative for: joint swelling , pedal edema, tenderness - Back Exam Back exam: NORMAL INSPECTION. absent: CVA tenderness (R), paraspinal tenderness - Neurological Exam Neurological exam: Alert, CN II-XII Intact, Oriented x3 - Psychiatric Exam Psychiatric exam: Normal Affect, Normal Mood - Skin Skin Exam: Dry, Intact Results - Vital Signs Recent Vital Signs: Last Vital Signs Temp 98.9 F 09/14/17 13:01 Pulse 64 09/14/17 13:01 Resp 18 09/14/17 13:01 BP 108/48 L 09/14/17 13:01 Pulse Ox 96 09/14/17 13:01 - Labs Result Diagrams: 09/14/17 08:25 09/14/17 08:25 Assessment & Plan - Assessment and Plan (Free Text) Assessment: 82 year old Nigerian speaking female with a history of HTN, Dyslipidemia, obesity , uterine cancer(s/p Hysterectomy), oa, gerd, depression, and recurrent uti's who is admitted for uti infection. Plan: 1. UTI -U/A was positive for Leukocyte esterase and urine wbc showed too numerous to count. -Patient was given Rocephin in the Emergency department. -Patient has a history of ESBL Klebsiella and Ecoli bactermia from UTI in the past. -ID consulted. Will f/u with rec's. -Meropenem 1gm Q12 per ID rec's. -Urology consulted. Will f/u with rec's. 2. CAREY -Creatinine upon admission 1.5. -Hold home BP medications -Avoid nephrotoxic agents -IV fluids NS @100mls/hr -Repeat cmp in A.M. 3.h/o of Normocytic anemia -Hemoglobin 11.1 upon admission. MCV 89.9. Trended and it's at her baseline. -Patient asymptomatic at this time. -No intervention indicated at this time. Will monitor with serial CBC's. 4. Urinary voiding complications. -Patient self catheterizes at home. However patient reports only sometimes doing it since she can still void a little amount. -E.D. drained 775 cc's of urine. -Abdomen pelvis ct showed bilateral hydronephrosis with marked urinary bladder distention, 2 left renal cysts, and a small hiatal hernia. -Urology consulted. f/u with rec's. 5.Hypertension -hold home BP meds due to CAREY. Normotensive upon admission. -Will re-evaluate in the A.M. and restart if CAREY has resolved. 6. Dyslipidemia -restart home medications 7. GERD -restart home medications. GI ppx -Protonix DVTppx -Heparin <Marla Clark - Last Filed: 09/15/17 07:28> Results - Vital Signs Recent Vital Signs: Last Vital Signs Temp 98.9 F 09/14/17 16:03 Pulse 64 09/14/17 16:03 Resp 18 09/14/17 16:03 BP 108/48 L 09/14/17 16:03 Pulse Ox 100 09/14/17 16:00 - Labs Result Diagrams: 09/15/17 06:30 09/14/17 08:25 Labs: Laboratory Results - last 24 hr 09/15/17 06:30 WBC 6.0 D RBC 3.51 Hgb 10.0 L Hct 31.8 L MCV 90.6 MCH 28.5 MCHC 31.4 RDW 14.5 Plt Count 200 MPV 9.9 Gran % 77.1 H Lymph % (Auto) 15.1 L [place] % (Auto) 6.1 H Eos % (Auto) 1.5 Baso % (Auto) 0.2 Gran # 4.64 Lymph # 0.9 L [place] # 0.4 Eos # 0.1 Baso # 0.01 Attending/Attestation - Attestation I have personally seen and examined this patient.: Yes I have fully participated in the care of the patient.: Yes I have reviewed all pertinent clinical information: Yes Notes (Text): 09/15/17 07:22 82 year old female with past medical history of hypertension, dyslipidemia uterine cancer s/p hysterectomy and recurrent UTIs who presents with lower abdominal pain and nausea. She was found to have CAREY, UTI and bilateral hydronephrosis with urinary bladder distention. She is started on iv antibiotics and iv fluids. Workman is inserted. ID and urology evaluation are requested. Will continue to monitor creatinine closely. Replete lytes. Resume home medications except HCTZ/lisinopril due to CAREY. Marla Clark MD Hospitalist.
[2017-09-14] MEDS ORDERED: Magnesium Sulfate 2 GM in Sodium Chloride 0.9% 100 ML IVPB ONE (14:05)
[2017-09-14] MEDS ORDERED: Influenza Vaccine 60 mcg/0.5 mL SYR (4YR UP) IM ONE (16:24)
[2017-09-14] MEDS ORDERED: Pneumococcal 23-Valent Vaccine IM ONE (16:24)
[2017-09-14] MEDS: DIFLUPREDNATE OD SCH (17:55)
[2017-09-14] MEDS: Tobramycin 0.3% OPH OINT OD SCH (17:56)
[2017-09-14] MEDS: Meropenem IV 1 gm in NS 50 ML IVPB SCH (22:17)
[2017-09-15] MEDS: Sodium Chloride 0.9% 1,000 ML IV SCH ×3 (06:20→06:25)
[2017-09-15] MEDS: Tobramycin 0.3% OPH OINT OD SCH ×2 (06:21→10:25)
[2017-09-15 07:00] LABS: BASO # 0.01 K/mm3 (0.0-2.0); BASO % 0.2 % (0.0-3.0); EOS # 0.1 (0.0-0.7); EOS % 1.5 % (1.5-5.0); GRAN # 4.64 (1.4-6.5); GRAN % 77.1 % (50.0-68.0); HEMATOCRIT 31.8 % (36.0-48.0); LYMPH # 0.9 (1.2-3.4); LYMPH % 15.1 % (22.0-35.0); MEAN CELL VOLUME 90.6 fl (80.0-105.0); MEAN CORPUSCULAR HEMOGLOBIN 28.5 pg (25.0-35.0); MEAN CORPUSCULAR HGB CONC 31.4 g/dl (31.0-37.0); MEAN PLATELET VOLUME 9.9 fl (7.0-11.0); MONO # 0.4 (0.1-0.6); MONO % 6.1 % (1.0-6.0); RED CELL DISTRIBUTION WIDTH 14.5 % (11.5-14.5)
[2017-09-15 07:25] LABS: ALB/GLOB RATIO 1.1 (1.1-1.8); BILIRUBIN,TOTAL 0.2 mg/dL (0.2-1.3); CALCIUM 8.5 mg/dL (8.4-10.5); POTASSIUM 4.6 mmol/L (3.6-5.0); TOTAL PROTEIN 5.8 g/dL (5.8-8.3)
--- NOTE | 2017-09-15 08:47 | CARD ---
APPROVED REPORT EKG Measurement Heart [id number] <Conclusion> Sinus rhythm with occasional premature ventricular complexes Nonspecific ST and T wave abnormality Abnormal ECG
[2017-09-15] MEDS: Meropenem IV 1 gm in NS 50 ML IVPB SCH ×2 (09:32→22:58)
[2017-09-15] MEDS ORDERED: Sodium Chloride 0.9% 1,000 ML IV SCH ×3 (09:52→16:51)
[2017-09-15] MEDS ORDERED: cefTRIAXone 1 gm 1 GM/100 ML BAG IVPB SCH (10:00)
[2017-09-15] MEDS: DIFLUPREDNATE OD SCH ×2 (10:24→18:30)
[2017-09-15] MEDS: Tobramycin 0.3% OPHT SOLN OU SCH ×3 (14:00→21:48)
--- NOTE | 2017-09-15 16:48 | CP.PCM.PN ---
<Tavares Galindo - Last Filed: 09/15/17 16:34> Subjective - Date & Time of Evaluation Date of Evaluation: 09/15/17 Time of Evaluation: 07:30 - Subjective Subjective: Tavares Galindo DO PGY1 - Internal Medicine Progress Note Patient seen and examined at bedside. No events overnight. Patient was febrile this morning. Fever lasted about 4 hours before it finally broke after receiving merrem, tylenol, motrin, and another tylenol. Patient was complaining of nausea, which resolved when the fever improved. She denies any chest pain, SOB, abdominal pain, diarrhea, constipation, cough, headache. She is complaining of fever and chills. Daughter at bedside acting as assistant softball coach. Objective - Vital Signs/Intake and Output Vital Signs (last 24 hours): Temp Pulse Resp BP Pulse Ox 101.4 F H 91 H 20 130/62 95 09/15/17 13:00 09/15/17 11:08 09/15/17 07:23 09/15/17 13:00 09/15/17 07:23 Intake and Output: 09/15/17 09/15/17 06:59 18:59 Output Total 1000 Balance -1000 - Medications Medications: Current Medications Acetaminophen (Tylenol 325mg Tab) 650 mg PO Q6H PRN PRN Reason: Fever >100.4 F or Headache Last Admin: 09/15/17 08:15 Dose: 650 mg Atorvastatin Calcium (Lipitor) 10 mg PO 1700 [facility] Heparin Sodium (Porcine) (Heparin) 5,000 units SC Q12 [facility] PRN Reason: Protocol Last Admin: 09/15/17 09:47 Dose: 5,000 units Hydralazine HCl (Apresoline) 10 mg IVP Q6 PRN PRN Reason: SBP >180 Last Admin: 09/15/17 11:08 Dose: 10 mg Meropenem (Merrem Iv 1 Gm Premix) 50 mls @ 100 mls/hr IVPB Q12 [facility] PRN Reason: Protocol Last Admin: 09/15/17 09:32 Dose: 100 mls/hr Sodium Chloride (Sodium Chloride 0.9%) 1,000 mls @ 125 mls/hr IV .Q8H [facility] Ibuprofen (Motrin Tab) 600 mg PO Q6H PRN PRN Reason: Fever >100.4 F Last Admin: 09/15/17 10:16 Dose: 600 mg Non-Formulary Medication (Difluprednate [Durezol]) 5 ml OD BID [facility] Last Admin: 09/15/17 10:24 Dose: 5 ml Ondansetron HCl (Zofran Inj) 4 mg IVP Q4H PRN PRN Reason: Nausea/Vomiting Pantoprazole Sodium (Protonix Inj) 40 mg IVP DAILY [facility] Last Admin: 09/15/17 09:47 Dose: 40 mg Paroxetine HCl (Paxil) 20 mg PO DAILY [facility] Last Admin: 09/15/17 09:48 Dose: 20 mg Tobramycin Sulfate (Tobrex 0.3% Ophth Soln) 1 drop OU QID [facility] Zolpidem Tartrate (Ambien) 5 mg PO HS PRN PRN Reason: Insomnia Last Admin: 09/14/17 21:55 Dose: 5 mg - Labs Labs: 09/15/17 06:30 09/15/17 06:30 PT 11.6 SECONDS (9.4-12.5) 09/14/17 08:25 INR 1.05 (0.93-1.08) 09/14/17 08:25 APTT 23.3 Seconds (25.1-36.5) L 09/14/17 08:25 - Constitutional Appears: Toxic, In Acute Distress - Head Exam Head Exam: ATRAUMATIC, NORMOCEPHALIC - Eye Exam Eye Exam: EOMI, Normal appearance - ENT Exam ENT Exam: Mucous Membranes Moist - Neck Exam Neck Exam: Normal Inspection - Respiratory Exam Respiratory Exam: Clear to Ausculation Bilateral, NORMAL BREATHING PATTERN Assessment and Plan - Assessment and Plan (Free Text) Assessment: 82 year old Serbian speaking female with a history of HTN, Dyslipidemia, obesity , uterine cancer (s/p Hysterectomy), OA, GERD, depression, and recurrent uti's who is admitted for symptomatic UTI with hydronephrosis and questionable pyelonephritis Plan: 1. UTI -U/A was positive for Leukocyte esterase and urine wbc showed too numerous to count. -UCx shows gram negative rods; pending sensitivity -CT a/p showed bladder distension, hydronephrosis, 2 renal cysts, and -Continue Merrem, as per ID -Patient febrile this morning, broke after multiple antipyretics and IV abx; no changes in current regimen per ID -Patient has a history of ESBL Klebsiella, VRE UTI, and E coli bacteremia from UTI in the past. -Zofran PRN for nausea -Motrin and Tylenol PRN for fever -Urology consulted, appreciate recs -ID on consult, appreciate recs 2. CAREY -Creatinine upon admission 1.5, improved to 1.1 today -Hold home BP medications -Avoid nephrotoxic agents -IV fluids NS @100mls/hr 3. h/o of Normocytic anemia -H&H dropped slightly today; likely dilutional, continue to monitor. -Patient asymptomatic at this time. 4. Urinary voiding complications. -Patient self catheterizes at home. However patient reports doing it only intermittently. -Abdomen pelvis ct showed bilateral hydronephrosis with marked urinary bladder distention, 2 left renal cysts, and a small hiatal hernia. -Urology on consult, appreciate recs 5. Hypertension -Hold home BP meds due to CAREY and acute illness -Patient slightly hypertensive, no tachycardia -Ordered PRN hydralazine -Consider restarting home medications after stabilization of acute illness 6. Dyslipidemia -Continue home medications 7. GERD -Continue home medications. GI/DVT Ppx - Protonix, Heparin Patient seen, discsussed, and reviewed with attending <Marla Clark - Last Filed: 09/15/17 17:39> Objective - Vital Signs/Intake and Output Vital Signs (last 24 hours): Temp Pulse Resp BP Pulse Ox 101.4 F H 91 H 20 130/62 95 09/15/17 13:00 09/15/17 11:08 09/15/17 07:23 09/15/17 13:00 09/15/17 07:23 Intake and Output: 09/15/17 09/15/17 06:59 18:59 Output Total 1000 Balance -1000 - Medications Medications: Current Medications Acetaminophen (Tylenol 325mg Tab) 650 mg PO Q6H PRN PRN Reason: Fever >100.4 F or Headache Last Admin: 09/15/17 08:15 Dose: 650 mg Atorvastatin Calcium (Lipitor) 10 mg PO 1700 [facility] Heparin Sodium (Porcine) (Heparin) 5,000 units SC Q12 [facility] PRN Reason: Protocol Last Admin: 09/15/17 09:47 Dose: 5,000 units Hydralazine HCl (Apresoline) 10 mg IVP Q6 PRN PRN Reason: SBP >180 Last Admin: 09/15/17 11:08 Dose: 10 mg Meropenem (Merrem Iv 1 Gm Premix) 50 mls @ 100 mls/hr IVPB Q12 [facility] PRN Reason: Protocol Last Admin: 09/15/17 09:32 Dose: 100 mls/hr Sodium Chloride (Sodium Chloride 0.9%) 1,000 mls @ 100 mls/hr IV .Q10H [facility] Vancomycin HCl 2 gm/ Sodium (Chloride) 500 mls @ 170 mls/hr IVPB ONCE ONE PRN Reason: Protocol Stop: 09/15/17 20:09 Daptomycin 450 mg/ Sodium (Chloride) 100 mls @ 200 mls/hr IV ONCE ONE Stop: 09/15/17 19:29 Ibuprofen (Motrin Tab) 600 mg PO Q6H PRN PRN Reason: Fever >100.4 F Last Admin: 09/15/17 10:16 Dose: 600 mg Non-Formulary Medication (Difluprednate [Durezol]) 5 ml OD BID [facility] Last Admin: 09/15/17 10:24 Dose: 5 ml Ondansetron HCl (Zofran Inj) 4 mg IVP Q4H PRN PRN Reason: Nausea/Vomiting Pantoprazole Sodium (Protonix Inj) 40 mg IVP DAILY [facility] Last Admin: 09/15/17 09:47 Dose: 40 mg Paroxetine HCl (Paxil) 20 mg PO DAILY [facility] Last Admin: 09/15/17 09:48 Dose: 20 mg Tobramycin Sulfate (Tobrex 0.3% Ophth Soln) 1 drop OU QID [facility] Zolpidem Tartrate (Ambien) 5 mg PO HS PRN PRN Reason: Insomnia Last Admin: 09/14/17 21:55 Dose: 5 mg - Labs Labs: 09/15/17 06:30 09/15/17 06:30 PT 11.6 SECONDS (9.4-12.5) 09/14/17 08:25 INR 1.05 (0.93-1.08) 09/14/17 08:25 APTT 23.3 Seconds (25.1-36.5) L 09/14/17 08:25 Attending/Attestation - Attestation I have personally seen and examined this patient.: Yes I have fully participated in the care of the patient.: Yes I have reviewed all pertinent clinical information, including history, physical exam and plan: Yes Notes (Text): 09/15/17 17:37 82 year old female with past medical history of hypertension, dyslipidemia uterine cancer s/p hysterectomy and recurrent UTIs who presented with lower abdominal pain and nausea. She was found to have CAREY, UTI and bilateral hydronephrosis with urinary bladder distention. Workman catheter was inserted and she was started on iv antibiotics and iv fluids. Urology evaluation was requested. ID evaluation was appreciated. Ucx is growing gram negative rods. Renal function has improved. Consider resuming HCTZ/lisinopril tomorrow if creatinine remains stable. Marla Clark MD Hospitalist.
[2017-09-15] MEDS ORDERED: Vancomycin 2 GM in Sodium Chloride 0.9% 500 ML IVPB ONE (17:13)
[2017-09-15] MEDS ORDERED: DAPTOmycin 500 mg Inj (Cubicin) IV ONE (17:14)
--- NOTE | 2017-09-15 17:28 | CP.PCM.CON ---
History of Present Illness - History of Present Illness History of Present Illness: 81 year old female with PMH of HTN, dyslipidemia, obesity with BMI 31, history of uterine cancer S/P hysterectomy, S/P cholecystectomy, osteoarthritis, GERD, history of depression, history of E. 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 She was also complaining of some nausea but without vomiting. She has some urinary frequency but no burning sensation on urination. She denies headache or dizziness, no rhinorrhea, no cough, no SOB, no abdominal pain, no diarrhea. She denies known sick contacts, has not traveled outside of [place] in the past 3 months. Infectious Diseases consult is requested to further evaluate and manage. Review of Systems - Review of Systems All systems: reviewed and no additional remarkable complaints except (as per HPI ) Past Patient History - Infectious Disease Hx of Infectious Diseases: None - Past Medical History & Family History Past Medical History?: Yes - Past Social History Smoking Status: Never Smoked - CARDIAC Hx Cardiac Disorders: Yes Hx Cardia Arrhythmia: Yes (AFIB) Hx Hypercholesterolemia: Yes Hx Hypertension: Yes Hx Peripheral Edema: Yes (lle +1 at times) - PULMONARY Hx Respiratory Disorders: Yes Hx Pneumonia: Yes - NEUROLOGICAL Hx Dizziness: No - HEENT Hx HEENT Problems: Yes (EYE INFECTION) Hx Cataracts: Yes (RT EYE CATARACT EXTRACTION) - RENAL Hx Chronic Kidney Disease: No - ENDOCRINE/METABOLIC Hx Endocrine Disorders: No - HEMATOLOGICAL/ONCOLOGICAL Hx Blood Disorders: Yes Hx Anemia: Yes (IRON DEFICIENCY) - INTEGUMENTARY Hx Dermatological Problems: No - MUSCULOSKELETAL/RHEUMATOLOGICAL Hx Musculoskeletal Disorders: Yes (chronic r hip pain) Hx Degenerative Joint Disease: Yes Hx Falls: No Hx Osteoarthritis: Yes - GASTROINTESTINAL Hx Gastrointestinal Disorders: Yes (GASTROENTERITIS) Hx Gall Bladder Disease: Yes (galbladder removal) - GENITOURINARY/GYNECOLOGICAL Hx Genitourinary Disorders: (urgency/frequency/HESITANCY-ATONIC BLADDER) Other/Comment: E COLI BACTEREMIA,HYSTERECTOMY - PSYCHIATRIC Hx Emotional Abuse: No Hx Physical Abuse: No Hx Substance Use: No - SURGICAL HISTORY Hx Surgeries: Yes Hx Cholecystectomy: Yes Other/Comment: rt eye cataract Sep 1103/2017 - ANESTHESIA Hx Anesthesia: Yes Hx Anesthesia Reactions: No Hx Malignant Hyperthermia: No Meds Allergies/Adverse Reactions: Allergies Allergy/AdvReac Type Severity Reaction Status Date / Time No Known Allergies Allergy Verified 09/14/17 14:32 - Medications Medications: Current Medications Atorvastatin Calcium (Lipitor) 10 mg PO 1700 [facility] Heparin Sodium (Porcine) (Heparin) 5,000 units SC Q12 [facility] PRN Reason: Protocol Sodium Chloride (Sodium Chloride 0.9%) 1,000 mls @ 100 mls/hr IV .Q10H [facility] Last Admin: 09/14/17 09:48 Dose: 100 mls/hr Sodium Chloride (Sodium Chloride 0.9%) 1,000 mls @ 100 mls/hr IV .Q10H [facility] Last Admin: 09/14/17 15:27 Dose: Not Given Meropenem (Merrem Iv 1 Gm Premix) 50 mls @ 100 mls/hr IVPB Q12 [facility] PRN Reason: Protocol Non-Formulary Medication (Difluprednate [Durezol]) 5 ml OD BID [facility] Last Admin: 09/14/17 17:55 Dose: 5 ml Pantoprazole Sodium (Protonix Inj) 40 mg IVP DAILY [facility] Paroxetine HCl (Paxil) 20 mg PO DAILY [facility] Last Admin: 09/14/17 17:58 Dose: 20 mg Tobramycin Sulfate (Tobrex 0.3% Ophth Oint) 1 appl OD QID [facility] Last Admin: 09/14/17 17:56 Dose: 1 applic Zolpidem Tartrate (Ambien) 5 mg PO HS PRN PRN Reason: Insomnia Physical Exam - Constitutional Appears: Non-toxic, No Acute Distress - Head Exam Head Exam: NORMAL INSPECTION - ENT Exam ENT Exam: Mucous Membranes Moist - Neck Exam Neck exam: Negative for: Lymphadenopathy, Meningismus - Respiratory Exam Respiratory Exam: Decreased Breath Sounds - Cardiovascular Exam Cardiovascular Exam: +S1, +S2 - GI/Abdominal Exam GI & Abdominal Exam: Soft. absent: Tenderness Results - Vital Signs Recent Vital Signs: Last Vital Signs Temp 98.9 F 09/14/17 16:03 Pulse 64 09/14/17 16:03 Resp 18 09/14/17 16:03 BP 108/48 L 09/14/17 16:03 Pulse Ox 100 09/14/17 16:00 - Labs Result Diagrams: 09/15/17 06:30 09/15/17 06:30 Assessment & Plan - Assessment and Plan (Free Text) Plan: Assessment Consider sepsis due to UTI with gram negative bacilli history of E. 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 coli bacteremia, urine as the source HTN dyslipidemia obesity with BMI 31 history of uterine cancer S/P hysterectomy S/P cholecystectomy osteoarthritis GERD history of depression Plan started patient on Merrem and will give a dose of IV Daptomycin pending identification and sensitivities of the gram negative bacilli in the urine; follow up Urology evaluation and recommendations will also check rapid Influenza test will monitor clinically
[2017-09-15] MEDS: EYE OD SCH (22:58)
[2017-09-15] MEDS: DIFLUPREDNATE 0.05% OD SCH (22:58)
[2017-09-16 06:49] LABS: BASO # 0.02 K/mm3 (0.0-2.0); BASO % 0.2 % (0.0-3.0); EOS # 0.2 (0.0-0.7); EOS % 2.2 % (1.5-5.0); GRAN # 5.9 (1.4-6.5); GRAN % 72.1 % (50.0-68.0); HEMATOCRIT 31.6 % (36.0-48.0); LYMPH # 1.4 (1.2-3.4); LYMPH % 17.6 % (22.0-35.0); MEAN CELL VOLUME 91.6 fl (80.0-105.0); MEAN CORPUSCULAR HEMOGLOBIN 28.7 pg (25.0-35.0); MEAN CORPUSCULAR HGB CONC 31.3 g/dl (31.0-37.0); MEAN PLATELET VOLUME 9.8 fl (7.0-11.0); MONO # 0.7 (0.1-0.6); MONO % 7.9 % (1.0-6.0); RED CELL DISTRIBUTION WIDTH 14.7 % (11.5-14.5); WHITE BLOOD COUNT 8.2 10^3/ul (4.5-11.0)
[2017-09-16 07:31] LABS: ALKALINE PHOSPHATASE 86 U/L (38-126); ALT/SGPT 30 U/L (7-56); AST/SGOT 25 U/L (14-36); BILIRUBIN,TOTAL 0.2 mg/dL (0.2-1.3); BLOOD UREA NITROGEN 13 mg/dL (7-21); CALCIUM 8.6 mg/dL (8.4-10.5); CARBON DIOXIDE 21 mmol/L (21-33); CHLORIDE 115 mmol/L (98-107); GFR AFRICAN-AMERICAN > 60; GLUCOSE,RANDOM 102 mg/dL (70-110); POTASSIUM 3.9 mmol/L (3.6-5.0); SODIUM 143 mmol/L (132-148); TOTAL PROTEIN 5.7 g/dL (5.8-8.3)
[2017-09-16] MEDS ORDERED: Sodium Chloride 0.9% 1,000 ML IV SCH (08:50)
[2017-09-16] MEDS: DIFLUPREDNATE 0.05% OD SCH ×2 (09:33→21:30)
[2017-09-16] MEDS: EYE OD SCH ×2 (09:33→21:30)
[2017-09-16] MEDS: Meropenem IV 1 gm in NS 50 ML IVPB SCH ×2 (09:34→21:30)
[2017-09-16] MEDS: Tobramycin 0.3% OPHT SOLN OU SCH ×4 (09:35→21:30)
--- NOTE | 2017-09-16 11:22 | PQF SEPSIS ---
This form is a permanent part of the medical record Clarification of your documentation is requested to better reflect the severity of illness and intensity of treatment of your patient. Indicators present Pt with hx self catherazations, presents w/ UTI. Are you treating a cathether related issus? Please specify in your documentation as this will reflect in the final DRG.. Also ID notes " consider Sepsis", do you agree? [x] Temp < 96.8 or > 100.4 [] WBC count > 12,000/mm3 or <000/mm3 or 10% immature neutrophils [] Heart Rate > 90 [] Respiratory Rate > 20 [x Fever or hypothermia [] Chills [] Positive blood cultures [] Hypotension [] Metabolic acidosis (Elevated lactate level, anion gap or reduced blood pH) [] Acute confusion /Altered Mental Status [] Shock [] Other: [] + Urine culture- Enterobacter cloacae Location in the medical record that reflects the above clinical findings: [x]ID consult Treatment Provided: [x] hidalgo inserted, IV Antibiotics PHYSICIAN'S RESPONSE Based on your medical judgment of the clinical indicators outlined above, are you treating this patient for a known or suspected: [x] Sepsis / Septicemia Please specify organism if known [] [] SIRS (Systemic Inflammatory Response Syndrome) [] Severe Sepsis (Sepsis with Associated Organ Dysfunction) [] Fever of Unknown Origin [] Other, please indicate: [] [] If Unable to Determine, please check the box, sign and date. Present On Admission (POA) Indicator: [x] Present at the time of admission [] Not present at the time of admission [] Clinically Undetermined In responding to this query, please exercise your independent professional judgment. The fact that a question is asked does not imply that any particular answer is desired or expected. Thank you for your clarification on this documentation. If you have any questions please call:[ ][phone] * Thank you, [ ] Matilda Alaniz RN CDS rate quoting operator JULY
--- NOTE | 2017-09-16 15:41 | CP.PCM.PN ---
Subjective - Date & Time of Evaluation Date of Evaluation: 09/16/17 Time of Evaluation: 11:10 - Subjective Subjective: Now has been afebrile overnight, feeling better, no flank pains, no abdominal pain, no nausea, no diarrhea. Objective - Vital Signs/Intake and Output Vital Signs (last 24 hours): Temp Pulse Resp BP Pulse Ox 97.9 F 66 18 167/75 H 95 09/16/17 08:00 09/16/17 08:00 09/16/17 08:00 09/16/17 08:00 09/16/17 08:00 Intake and Output: 09/16/17 09/16/17 06:59 18:59 Intake Total 2600 Output Total 1400 Balance 1200 - Medications Medications: Current Medications Acetaminophen (Tylenol 325mg Tab) 650 mg PO Q6H PRN PRN Reason: Fever >100.4 F or Headache Last Admin: 09/16/17 01:40 Dose: 650 mg Atorvastatin Calcium (Lipitor) 10 mg PO 1700 [facility] Last Admin: 09/15/17 17:40 Dose: 10 mg Heparin Sodium (Porcine) (Heparin) 5,000 units SC Q12 [facility] PRN Reason: Protocol Last Admin: 09/16/17 09:33 Dose: 5,000 units Home Med (Home Med) 1 unit OD Q12 [facility] Last Admin: 09/16/17 09:33 Dose: 1 unit Hydralazine HCl (Apresoline) 10 mg IVP Q6 PRN PRN Reason: SBP >180 Last Admin: 09/15/17 11:08 Dose: 10 mg Meropenem (Merrem Iv 1 Gm Premix) 50 mls @ 100 mls/hr IVPB Q12 [facility] PRN Reason: Protocol Last Admin: 09/16/17 09:34 Dose: 100 mls/hr Sodium Chloride (Sodium Chloride 0.9%) 1,000 mls @ 60 mls/hr IV .[id number] [facility] Ibuprofen (Motrin Tab) 600 mg PO Q6H PRN PRN Reason: Fever >100.4 F Last Admin: 09/15/17 10:16 Dose: 600 mg Ondansetron HCl (Zofran Inj) 4 mg IVP Q4H PRN PRN Reason: Nausea/Vomiting Pantoprazole Sodium (Protonix Inj) 40 mg IVP DAILY [facility] Last Admin: 09/16/17 09:34 Dose: 40 mg Paroxetine HCl (Paxil) 20 mg PO DAILY [facility] Last Admin: 09/16/17 09:34 Dose: 20 mg Tobramycin Sulfate (Tobrex 0.3% Ophth Soln) 1 drop OU QID [facility] Last Admin: 09/16/17 09:35 Dose: 1 drop Zolpidem Tartrate (Ambien) 5 mg PO HS PRN PRN Reason: Insomnia Last Admin: 09/14/17 21:55 Dose: 5 mg - Labs Labs: 09/16/17 06:15 09/16/17 06:15 PT 11.6 SECONDS (9.4-12.5) 09/14/17 08:25 INR 1.05 (0.93-1.08) 09/14/17 08:25 APTT 23.3 Seconds (25.1-36.5) L 09/14/17 08:25 - Constitutional Appears: Non-toxic - Head Exam Head Exam: NORMAL INSPECTION - ENT Exam ENT Exam: Mucous Membranes Moist - Neck Exam Neck Exam: absent: Meningismus - Respiratory Exam Respiratory Exam: Decreased Breath Sounds - Cardiovascular Exam Cardiovascular Exam: +S1, +S2 - GI/Abdominal Exam GI & Abdominal Exam: Soft. absent: Tenderness Assessment and Plan - Assessment and Plan (Free Text) Plan: Assessment Consider sepsis due to UTI with Enterobacter, resistant to many antibiotics ( not labeled as ESBL-producing but concerned that it may be based on sensitivity profile) history of E. 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 coli bacteremia, urine as the source HTN dyslipidemia obesity with BMI 31 history of uterine cancer S/P hysterectomy S/P cholecystectomy osteoarthritis GERD history of depression Plan continue Merrem day 2 and will recommend 10-14 days of therapy rapid Influenza test is negative will continue to monitor clinically
--- NOTE | 2017-09-16 16:20 | CP.PCM.PN ---
<Tavares Galindo - Last Filed: 09/16/17 16:08> Subjective - Date & Time of Evaluation Date of Evaluation: 09/16/17 Time of Evaluation: 07:30 - Subjective Subjective: Tavares Galindo DO PGY1 - Internal Medicine Progress Note Patient seen and examined at bedside. No events overnight. Patient reports overall improvement in her symptoms. She denies any new fevers, chills, nausea, vomiting, abdominal pain. She does admit to some diarrhea, which she reports is chronic, 2/2 radiation induced colonic stricture. Objective - Vital Signs/Intake and Output Vital Signs (last 24 hours): Temp Pulse Resp BP Pulse Ox 97.9 F 80 18 130/70 95 09/16/17 08:00 09/16/17 12:00 09/16/17 08:00 09/16/17 12:00 09/16/17 08:00 Intake and Output: 09/16/17 09/16/17 06:59 18:59 Intake Total 2600 640 Output Total 1400 Balance 1200 640 - Medications Medications: Current Medications Acetaminophen (Tylenol 325mg Tab) 650 mg PO Q6H PRN PRN Reason: Fever >100.4 F or Headache Last Admin: 09/16/17 01:40 Dose: 650 mg Atorvastatin Calcium (Lipitor) 10 mg PO 1700 [facility] Last Admin: 09/15/17 17:40 Dose: 10 mg Heparin Sodium (Porcine) (Heparin) 5,000 units SC Q12 [facility] PRN Reason: Protocol Last Admin: 09/16/17 09:33 Dose: 5,000 units Home Med (Home Med) 1 unit OD Q12 [facility] Last Admin: 09/16/17 09:33 Dose: 1 unit Hydralazine HCl (Apresoline) 10 mg IVP Q6 PRN PRN Reason: SBP >180 Last Admin: 09/15/17 11:08 Dose: 10 mg Hydralazine HCl (Apresoline) 20 mg PO BID [facility] Last Admin: 09/16/17 12:00 Dose: 20 mg Meropenem (Merrem Iv 1 Gm Premix) 50 mls @ 100 mls/hr IVPB Q12 [facility] PRN Reason: Protocol Last Admin: 09/16/17 09:34 Dose: 100 mls/hr Metoprolol Tartrate (Lopressor) 25 mg PO BID [facility] Ondansetron HCl (Zofran Inj) 4 mg IVP Q4H PRN PRN Reason: Nausea/Vomiting Pantoprazole Sodium (Protonix Ec Tab) 40 mg PO ACB [facility] Paroxetine HCl (Paxil) 20 mg PO DAILY [facility] Last Admin: 09/16/17 09:34 Dose: 20 mg Tobramycin Sulfate (Tobrex 0.3% Ophth Soln) 1 drop OU QID [facility] Last Admin: 09/16/17 14:53 Dose: 1 drop Zolpidem Tartrate (Ambien) 5 mg PO HS PRN PRN Reason: Insomnia Last Admin: 09/14/17 21:55 Dose: 5 mg - Labs Labs: 09/16/17 06:15 09/16/17 06:15 PT 11.6 SECONDS (9.4-12.5) 09/14/17 08:25 INR 1.05 (0.93-1.08) 09/14/17 08:25 APTT 23.3 Seconds (25.1-36.5) L 09/14/17 08:25 - Constitutional Appears: Non-toxic, No Acute Distress - Head Exam Head Exam: ATRAUMATIC, NORMOCEPHALIC - Eye Exam Eye Exam: EOMI, Normal appearance, PERRL - ENT Exam ENT Exam: Mucous Membranes Moist - Neck Exam Neck Exam: Normal Inspection - Respiratory Exam Respiratory Exam: Clear to Ausculation Bilateral, NORMAL BREATHING PATTERN - Cardiovascular Exam Cardiovascular Exam: RRR, +S1, +S2 - GI/Abdominal Exam GI & Abdominal Exam: Soft, Normal Bowel Sounds. absent: Tenderness - Extremities Exam Extremities Exam: absent: Calf Tenderness, Pedal Edema - Neurological Exam Neurological Exam: Alert, Awake, Oriented x3 - Psychiatric Exam Psychiatric exam: Normal Affect, Normal Mood - Skin Skin Exam: Dry, Intact Assessment and Plan - Assessment and Plan (Free Text) Assessment: 82 year old Greek speaking female with a history of HTN, Dyslipidemia, obesity , uterine cancer (s/p Hysterectomy), OA, GERD, depression, and recurrent UTIs who is admitted for symptomatic UTI with hydronephrosis and questionable pyelonephritis Plan: 1. UTI -U/A was positive for Leukocyte esterase and urine wbc showed too numerous to count. -UCx shows Enterobacter cloacae, resistant to multiple antibiotics -Continue Merrem, as per ID -TCU eval requested; patient requires IV abx and physical rehabilitation -Patient has been afebrile 24 hours; blood cultures negative 48hrs -Zofran PRN for nausea -Motrin and Tylenol PRN for fever -Urology consulted, appreciate recs -ID on consult, appreciate recs 2. CAREY - resolved - Resume home antihypertensives 3. h/o of Normocytic anemia -H&H stable today; continue to monitor -Patient asymptomatic at this time. 4. Urinary voiding complications. -Patient has history of chronic urinary retention after pelvic surgeries and radiation -Urology on consult, appreciate recs 5. Hypertension -Resume home antihypertensives -Continue PRN hydralazine 6. Dyslipidemia -Continue home medications 7. GERD -Continue home medications. 8. Diarrhea - Patient has history of chronic diarrhea, but has been on IV abx multiple times in the past - Ordered stool for C diff GI/DVT Ppx - Protonix, Heparin Patient seen, discsussed, and reviewed with attending <Jimmy White - Last Filed: 09/17/17 14:03> Objective - Vital Signs/Intake and Output Vital Signs (last 24 hours): Temp Pulse Resp BP Pulse Ox 97.9 F 70 18 179/89 H 94 L 09/17/17 08:00 09/17/17 09:35 09/17/17 08:00 09/17/17 09:35 09/17/17 08:00 Intake and Output: 09/17/17 09/17/17 06:59 18:59 Intake Total 840 Output Total 2150 Balance -1310 - Medications Medications: Current Medications Acetaminophen (Tylenol 325mg Tab) 650 mg PO Q6H PRN PRN Reason: Fever >100.4 F or Headache Last Admin: 09/17/17 06:34 Dose: 650 mg Atorvastatin Calcium (Lipitor) 10 mg PO 1700 [facility] Last Admin: 09/16/17 17:29 Dose: 10 mg Diltiazem HCl (Cardizem Cd) 240 mg PO DAILY [facility] Heparin Sodium (Porcine) (Heparin) 5,000 units SC Q12 [facility] PRN Reason: Protocol Last Admin: 09/17/17 09:33 Dose: 5,000 units Home Med (Home Med) 1 unit OD Q12 [facility] Last Admin: 09/17/17 09:40 Dose: 1 unit Hydralazine HCl (Apresoline) 10 mg IVP Q6 PRN PRN Reason: SBP >180 Last Admin: 09/15/17 11:08 Dose: 10 mg Hydralazine HCl (Apresoline) 20 mg PO BID [facility] Last Admin: 09/17/17 09:34 Dose: 20 mg Meropenem (Merrem Iv 1 Gm Premix) 50 mls @ 100 mls/hr IVPB Q12 [facility] PRN Reason: Protocol Last Admin: 09/17/17 09:40 Dose: 100 mls/hr Lisinopril (Zestril) 15 mg PO BID [facility] Metoprolol Tartrate (Lopressor) 25 mg PO BID [facility] Last Admin: 09/17/17 09:35 Dose: 25 mg Ondansetron HCl (Zofran Inj) 4 mg IVP Q4H PRN PRN Reason: Nausea/Vomiting Pantoprazole Sodium (Protonix Ec Tab) 40 mg PO ACB [facility] Last Admin: 09/17/17 09:40 Dose: 40 mg Paroxetine HCl (Paxil) 20 mg PO DAILY [facility] Last Admin: 09/17/17 09:34 Dose: 20 mg Tobramycin Sulfate (Tobrex 0.3% [facility]) 1 drop OU QID [facility] Last Admin: 09/17/17 09:35 Dose: 1 drop Zolpidem Tartrate (Ambien) 5 mg PO HS PRN PRN Reason: Insomnia Last Admin: 09/14/17 21:55 Dose: 5 mg - Labs Labs: 09/17/17 07:00 09/17/17 07:00 PT 11.6 SECONDS (9.4-12.5) 09/14/17 08:25 INR 1.05 (0.93-1.08) 09/14/17 08:25 APTT 23.3 Seconds (25.1-36.5) L 09/14/17 08:25 Attending/Attestation - Attestation I have fully participated in the care of the patient.: Yes I have reviewed all pertinent clinical information, including history, physical exam and plan: Yes Notes (Text): 09/17/17 14:02 Patient was seen and examined with certified ophthalmic medical technician. Agreed with resident assessment and plan. Management plan was discussed in detail with patient and family who is at bed side. Education was provided.
--- NOTE | 2017-09-17 03:43 | CON ---
DATE: 09/16/2017 CHIEF COMPLAINT: Fever. HISTORY OF PRESENT ILLNESS: This is an 82-year-old female who is known to me. The patient has a long history of incomplete voiding and an elevated postvoid residual. The patient had a sling procedure done in [place] many years ago after a hysterectomy. Since that time, the patient has had difficulty emptying. Recently, she had a hernia surgery with postoperative urinary retention. Workman catheter had been in place for a few weeks, it was removed and she had been back to her baseline. The patient then had further elevation of her postvoid residual. Previously, she had been on self-catheterization at home. She was seen in my office and reports she had been catheterizing without difficulty. She was doing this once in the morning and once at night. At home, the patient reports she was not doing the catheterization as she had been ordered. She was found to have a fever and chills and was brought to the hospital for admission. Workman catheter was placed and reportedly 1 liter was drained. Urology consultation was then requested. PAST MEDICAL HISTORY: Significant for uterine cancer, hypertension, dyslipidemia, arthritis, depression, reflux, sepsis and arthritis. CURRENT MEDICATIONS: Include Ambien, hydralazine, Apresoline, Lipitor, Lopressor, Merrem, Paxil, Protonix, TobraDex, Tylenol and Zofran. ALLERGIES: NO KNOWN DRUG ALLERGIES. FAMILY HISTORY: Noncontributory. SOCIAL HISTORY: No smoking or EtOH use. REVIEW OF SYSTEMS: The patient is seen with her daughter present as an band tacker. She currently reports feeling well. Denies any fever or chills. Denies any nausea or vomiting. Denies any flank pain, has a Workman catheter in place, does report some mild weakness and joint pain. Other systems are negative. PHYSICAL EXAMINATION VITAL SIGNS: Currently afebrile, pulse of 66, blood pressure 167/75, respirations 18. NECK: Supple. There is no adenopathy. CHEST: Revealed normal inspiratory effort. CARDIAC: Exam showed positive S1, S2. There is trace peripheral edema noted. ABDOMEN. Soft, nontender, nondistended. There is no hepatosplenomegaly. There is no costovertebral angle tenderness. The bladder is not palpably distended. : Workman catheter in place, draining clear urine. EXTREMITIES: No cyanosis with trace edema. LABORATORY DATA: WBC count normal at 8.2. Creatinine is down to 1.0. It was 1.5 on 09/14/2017. Urinalysis showed a large leukocyte esterase, too numerous to count wbc's, 5-10 rbc's, nitrites negative. Urine culture grew Enterobacter cloacae. Blood cultures negative after 48 hours. On radiologic exam, the patient had a CT scan of the abdomen and pelvis done on admission, which showed slight cortical volume loss of the kidneys. There were two cortical cysts on the left kidney. There was moderate bilateral hydronephrosis with no evidence of kidneys or ureteral stones. No evidence of diverticulitis status post hysterectomy, small hiatal hernia, bilateral hydronephrosis with marked urinary bladder distention. IMPRESSION AND PLAN: This is an 82-year-old female with a urinary infection and urinary retention. Workman catheter has been placed and the patient is continuing on IV antibiotics. Her blood cultures were negative. Urologically, the plan will be to leave the Workman catheter in place for now. The patient should follow up in my office in a few weeks after antibiotics are completed. We will review the self-catheterization technique and make sure the patient is able to empty her bladder this way. I reviewed this plan with the patient and her daughter alternatively, she can have an indwelling Workman catheter which can be changed monthly. The patient and her daughter would prefer to resume self-catheterization however, I discussed with the patient the need to do this continuously, for now I would do three times daily. I will plan a repeat renal ultrasound in a few weeks' time to make sure the hydronephrosis has resolved. Thank you for allowing me to participate in the care of this patient. We will follow her with you. Oscar Cuba MD
[2017-09-17 07:33] LABS: BASO # 0.03 K/mm3 (0.0-2.0); BASO % 0.4 % (0.0-3.0); EOS # 0.2 (0.0-0.7); EOS % 2.3 % (1.5-5.0); GRAN # 5.22 (1.4-6.5); GRAN % 71.3 % (50.0-68.0); HEMATOCRIT 33.3 % (36.0-48.0); LYMPH # 1.3 (1.2-3.4); LYMPH % 17.3 % (22.0-35.0); MEAN CELL VOLUME 88.8 fl (80.0-105.0); MEAN CORPUSCULAR HEMOGLOBIN 28.3 pg (25.0-35.0); MEAN CORPUSCULAR HGB CONC 31.8 g/dl (31.0-37.0); MEAN PLATELET VOLUME 10.1 fl (7.0-11.0); MONO # 0.6 (0.1-0.6); MONO % 8.7 % (1.0-6.0); RED CELL DISTRIBUTION WIDTH 14.2 % (11.5-14.5); WHITE BLOOD COUNT 7.3 10^3/ul (4.5-11.0)
[2017-09-17 07:47] LABS: ALB/GLOB RATIO 1.1 (1.1-1.8); ALKALINE PHOSPHATASE 99 U/L (38-126); ALT/SGPT 28 U/L (7-56); AST/SGOT 21 U/L (14-36); BILIRUBIN,TOTAL 0.5 mg/dL (0.2-1.3); BLOOD UREA NITROGEN 12 mg/dL (7-21); CALCIUM 9.5 mg/dL (8.4-10.5); CARBON DIOXIDE 24 mmol/L (21-33); CHLORIDE 109 mmol/L (98-107); GFR AFRICAN-AMERICAN > 60; GLUCOSE,RANDOM 105 mg/dL (70-110); SODIUM 143 mmol/L (132-148); TOTAL PROTEIN 6.4 g/dL (5.8-8.3)
[2017-09-17] MEDS: Tobramycin 0.3% OPHT SOLN OU SCH ×4 (09:35→21:25)
[2017-09-17] MEDS: EYE OD SCH ×2 (09:40→21:24)
[2017-09-17] MEDS: DIFLUPREDNATE 0.05% OD SCH ×2 (09:40→21:24)
[2017-09-17] MEDS: Pantoprazole 40 mg EC Tab PO SCH (09:40)
[2017-09-17] MEDS: Meropenem IV 1 gm in NS 50 ML IVPB SCH ×2 (09:40→22:12)
--- NOTE | 2017-09-17 18:04 | CP.PCM.PN ---
Subjective - Date & Time of Evaluation Date of Evaluation: 09/17/17 Time of Evaluation: 07:30 - Subjective Subjective: Tavares Galindo DO PGY1 - Internal Medicine Progress Note Patient seen and examined at bedside. No events overnight. Patient still complaining of occasional loose stools, which is reportedly her baseline. She denies any new fevers, chills, nausea, vomiting, abdominal pain. Objective - Vital Signs/Intake and Output Vital Signs (last 24 hours): Temp Pulse Resp BP Pulse Ox 97.9 F 70 18 179/89 H 94 L 09/17/17 08:00 09/17/17 09:35 09/17/17 08:00 09/17/17 09:35 09/17/17 08:00 Intake and Output: 09/17/17 09/17/17 06:59 18:59 Intake Total 840 Output Total 2150 Balance -1310 - Medications Medications: Current Medications Acetaminophen (Tylenol 325mg Tab) 650 mg PO Q6H PRN PRN Reason: Fever >100.4 F or Headache Last Admin: 09/17/17 06:34 Dose: 650 mg Atorvastatin Calcium (Lipitor) 10 mg PO 1700 [facility] Last Admin: 09/16/17 17:29 Dose: 10 mg Diltiazem HCl (Cardizem Cd) 240 mg PO DAILY [facility] Heparin Sodium (Porcine) (Heparin) 5,000 units SC Q12 [facility] PRN Reason: Protocol Last Admin: 09/17/17 09:33 Dose: 5,000 units Home Med (Home Med) 1 unit OD Q12 [facility] Last Admin: 09/17/17 09:40 Dose: 1 unit Hydralazine HCl (Apresoline) 10 mg IVP Q6 PRN PRN Reason: SBP >180 Last Admin: 09/15/17 11:08 Dose: 10 mg Hydralazine HCl (Apresoline) 20 mg PO BID [facility] Last Admin: 09/17/17 09:34 Dose: 20 mg Meropenem (Merrem Iv 1 Gm Premix) 50 mls @ 100 mls/hr IVPB Q12 [facility] PRN Reason: Protocol Last Admin: 09/17/17 09:40 Dose: 100 mls/hr Lisinopril (Zestril) 15 mg PO BID [facility] Last Admin: 09/17/17 14:52 Dose: Not Given Metoprolol Tartrate (Lopressor) 25 mg PO BID [facility] Last Admin: 09/17/17 09:35 Dose: 25 mg Ondansetron HCl (Zofran Inj) 4 mg IVP Q4H PRN PRN Reason: Nausea/Vomiting Pantoprazole Sodium (Protonix Ec Tab) 40 mg PO ACB [facility] Last Admin: 09/17/17 09:40 Dose: 40 mg Paroxetine HCl (Paxil) 20 mg PO DAILY [facility] Last Admin: 09/17/17 09:34 Dose: 20 mg Tobramycin Sulfate (Tobrex 0.3% Ophth Soln) 1 drop OU QID [facility] Last Admin: 09/17/17 15:00 Dose: 1 drop Zolpidem Tartrate (Ambien) 5 mg PO HS PRN PRN Reason: Insomnia Last Admin: 09/14/17 21:55 Dose: 5 mg - Labs Labs: 09/17/17 07:00 09/17/17 07:00 PT 11.6 SECONDS (9.4-12.5) 09/14/17 08:25 INR 1.05 (0.93-1.08) 09/14/17 08:25 APTT 23.3 Seconds (25.1-36.5) L 09/14/17 08:25 - Constitutional Appears: Non-toxic, No Acute Distress - Head Exam Head Exam: ATRAUMATIC, NORMOCEPHALIC - Eye Exam Eye Exam: EOMI, Normal appearance, PERRL - ENT Exam ENT Exam: Mucous Membranes Moist - Respiratory Exam Respiratory Exam: Clear to Ausculation Bilateral, NORMAL BREATHING PATTERN - Cardiovascular Exam Cardiovascular Exam: REGULAR RHYTHM, +S1, +S2 - GI/Abdominal Exam GI & Abdominal Exam: Soft, Normal Bowel Sounds. absent: Tenderness - Extremities Exam Extremities Exam: absent: Calf Tenderness, Pedal Edema - Back Exam Back Exam: absent: CVA tenderness (L), CVA tenderness (R) - Neurological Exam Neurological Exam: Alert, Awake, Oriented x3 - Psychiatric Exam Psychiatric exam: Normal Affect, Normal Mood - Skin Skin Exam: Dry, Intact Assessment and Plan - Assessment and Plan (Free Text) Assessment: 82 year old Indonesian speaking female with a history of HTN, Dyslipidemia, obesity , uterine cancer (s/p Hysterectomy), OA, GERD, depression, and recurrent UTIs who is admitted for symptomatic UTI with hydronephrosis and questionable pyelonephritis Plan: 1. UTI -U/A was positive for Leukocyte esterase and urine wbc showed too numerous to count. -UCx shows Enterobacter cloacae, resistant to multiple antibiotics -Continue Merrem, as per ID; patient will require total 10-14 days of IV Abx -Patient accepted to TCU, will transfer when bed is available, for continued IV abx and physical rehabilitation - Patient has history of VRE and ESBL; will require isolation room, must remain on medical floor until that is available -Patient remains afebrile; blood cultures show no growth after 3 days -Zofran PRN for nausea -Motrin and Tylenol PRN for fever -Urology consulted, appreciate recs -ID on consult, appreciate recs 3. h/o of Normocytic anemia -H&H stable today; continue to monitor -Patient asymptomatic at this time. 4. Urinary voiding complications. -Patient has history of chronic urinary retention after pelvic surgeries and radiation -Per urology, patient will require indwelling h[place]go vs self catheterization 3x daily; renal US in 3 weeks to confirm resolution of hydronephrosis -Urology on consult, appreciate recs 5. Hypertension -Continue home antihypertensives -Continue PRN hydralazine 6. Dyslipidemia -Continue home medications 7. GERD -Continue home medications. 8. Diarrhea - Patient has history of chronic diarrhea, but has been on IV abx multiple times in the past - Ordered stool for C diff; pending GI/DVT Ppx - Protonix, Heparin Patient seen, discsussed, and reviewed with attending
--- NOTE | 2017-09-17 18:22 | PN ---
DATE: 09/17/2017 SUBJECTIVE: The patient is in bed in no acute distress, nontoxic. PHYSICAL EXAMINATION: VITAL SIGNS: Temperature is 97, blood pressure is 170/80, respiratory rate of 18. HEENT: Unremarkable. NECK: Supple. LUNGS: Have decreased breath sounds. HEART: Normal S1, S2. ABDOMEN: Soft and nontender. LABORATORY EXAMINATION: Reveals a white count of 7.3, hemoglobin of 10, platelets of 210. Coagulation is noted. Chemistries reveals a BUN of 12, creatinine of 0.9. Urinalysis is noted. Microbiology reveals the urine with Enterobacter cloacae. Blood cultures have no growth at 3 days. The Enterobacter cloacae in the urine is sensitive to ertapenem, Bactrim and is sensitive to meropenem otherwise relatively resistant organism sensitive piperacillin and tazobactam. Recurrent review of medications under orders reveals the patient to have to be on meropenem. ASSESSMENT AND PLAN: An 82-year-old female was seen early this morning in room 561 with sepsis with Enterobacter urine as the source resistant to many antibiotics although not labile is extended-spectrum beta-lactamases producing, but concerned and the patient with a history of Escherichia coli bacteremia, history of Escherichia coli urinary tract infection, history of extended-spectrum beta-lactamases Klebsiella and vancomycin resistant Enterococcus bacteriuria. Currently, on day number 3 of meropenem with complete 10 to 14 days. Follow the patient closely. Puneet David MD
[2017-09-18 01:55] VITALS: RESP 20
[2017-09-18 06:55] LABS: ALB/GLOB RATIO 1.1 (1.1-1.8); ALKALINE PHOSPHATASE 82 U/L (38-126); ALT/SGPT 28 U/L (7-56); AST/SGOT 20 U/L (14-36); BILIRUBIN,TOTAL 0.2 mg/dL (0.2-1.3); BLOOD UREA NITROGEN 13 mg/dL (7-21); CARBON DIOXIDE 26 mmol/L (21-33); CHLORIDE 107 mmol/L (98-107); GFR AFRICAN-AMERICAN > 60; GLUCOSE,RANDOM 102 mg/dL (70-110); SODIUM 142 mmol/L (132-148)
[2017-09-18 06:58] LABS: BASO # 0.02 K/mm3 (0.0-2.0); BASO % 0.3 % (0.0-3.0); EOS # 0.2 (0.0-0.7); EOS % 2.7 % (1.5-5.0); GRAN # 4.45 (1.4-6.5); GRAN % 70.7 % (50.0-68.0); HEMATOCRIT 32.8 % (36.0-48.0); LYMPH # 1.2 (1.2-3.4); LYMPH % 19.5 % (22.0-35.0); MEAN CELL VOLUME 88.9 fl (80.0-105.0); MEAN CORPUSCULAR HEMOGLOBIN 28.2 pg (25.0-35.0); MEAN CORPUSCULAR HGB CONC 31.7 g/dl (31.0-37.0); MONO # 0.4 (0.1-0.6); MONO % 6.8 % (1.0-6.0); RED CELL DISTRIBUTION WIDTH 14.3 % (11.5-14.5); WHITE BLOOD COUNT 6.3 10^3/ul (4.5-11.0)
[2017-09-18] MEDS: Pantoprazole 40 mg EC Tab PO SCH (08:00)
[2017-09-18 09:27] LABS: URINE BILIRUBIN NEGATIVE (NEGATIVE); URINE BLOOD SMALL (NEGATIVE); URINE GLUCOSE (UA) NEGATIVE (NEGATIVE); URINE KETONE NEGATIVE (NEGATIVE); URINE LEUKOCYTE ESTERASE SMALL Leu/uL (NEGATIVE); URINE PROTEIN 100 mg/dL (<30 mg/dL); URINE UROBILINOGEN 0.2 E.U./dL (<1 E.U./dL)
[2017-09-18 09:53] LABS: URINE APPEARANCE SL CLOUDY (CLEAR); URINE COLOR YELLOW (YELLOW)
[2017-09-18 09:55] LABS: URINE EPITHELIAL CELLS 0 - 2 /hpf (0-5); URINE WBC 15 - 20 /hpf (0-6)
[2017-09-18 09:56] LABS: URINE BACTERIA MANY (NEG)
[2017-09-18] MEDS ORDERED: diltiaZEM 240 mg/24 Hours CD Cap PO SCH (10:00)
[2017-09-18] MEDS: Meropenem IV 1 gm in NS 50 ML IVPB SCH ×2 (10:30→21:33)
--- NOTE | 2017-09-18 10:53 | PN ---
DATE: 09/18/2017 SUBJECTIVE: The patient is seen earlier this morning in room 561, bed 1. The patient had an uneventful night. No fevers and chills. Temperature has been down now past 3 days. PHYSICAL EXAMINATION: VITAL SIGNS: Temperature of 97, blood pressure is 140/60, respiratory rate of 18. HEENT: Unremarkable. NECK: Supple. LUNGS: Have decreased breath sounds. HEART: Normal S1, S2. ABDOMEN: Soft, nontender. No organomegaly. No rebound or guarding. LABORATORY EXAMINATION: Reveals a white count of 6.3, hemoglobin of 10, and the chemistries reveal a BUN of 13, creatinine of 1.0. Urinalysis is noted, too numerous to count wbc's. Microbiology reveals there is Enterobacter cloacae as multidrug-resistant Enterobacter cloacae, and review of orders reveals the patient to be on meropenem. ASSESSMENT AND PLAN: An 82-year-old seen earlier this morning in room 561, was admitted with sepsis with Enterobacter with urine as a source, resistant to many antibiotics ESBL producing is not available with multidrug-resistant Enterobacter, currently on meropenem day #4, would complete 10-14 days. We will repeat urinalysis and urine culture, and we will follow closely with you. Puneet David MD
[2017-09-18] MEDS: DIFLUPREDNATE 0.05% OD SCH ×2 (11:09→22:13)
[2017-09-18] MEDS: EYE OD SCH ×2 (11:09→22:13)
[2017-09-18] MEDS: Tobramycin 0.3% OPHT SOLN OU SCH ×3 (11:11→18:54)
[2017-09-18 17:03] VITALS: TEMP 98; O2SAT 95
--- NOTE | 2017-09-18 18:55 | CP.PCM.PN ---
Subjective - Date & Time of Evaluation Date of Evaluation: 09/18/17 Time of Evaluation: 07:30 - Subjective Subjective: Tavares Galindo DO PGY1 - Internal Medicine Progress Note Patient seen and examined at bedside. No events overnight. Patient has no new complaints. Denies any chest pain, SOB, abdominal pain, N/V/D/C, fevers, chills. She is pending TCU transfer when a bed is available. Objective - Vital Signs/Intake and Output Vital Signs (last 24 hours): Temp Pulse Resp BP Pulse Ox 98 F 70 20 132/61 95 09/18/17 17:03 09/18/17 17:03 09/18/17 17:03 09/18/17 17:03 09/18/17 17:03 Intake and Output: 09/18/17 09/18/17 06:59 18:59 Intake Total 1000 Output Total 1650 Balance -650 - Medications Medications: Current Medications Acetaminophen (Tylenol 325mg Tab) 650 mg PO Q6H PRN PRN Reason: Fever >100.4 F or Headache Last Admin: 09/17/17 17:54 Dose: 650 mg Atorvastatin Calcium (Lipitor) 10 mg PO 1700 [facility] Last Admin: 09/17/17 17:54 Dose: 10 mg Diltiazem HCl (Cardizem Cd) 240 mg PO DAILY [facility] Last Admin: 09/18/17 10:00 Dose: 240 mg Heparin Sodium (Porcine) (Heparin) 5,000 units SC Q12 [facility] PRN Reason: Protocol Last Admin: 09/18/17 10:00 Dose: Not Given Home Med (Home Med) 1 unit OD Q12 [facility] Last Admin: 09/18/17 11:09 Dose: 1 unit Hydralazine HCl (Apresoline) 10 mg IVP Q6 PRN PRN Reason: SBP >180 Last Admin: 09/15/17 11:08 Dose: 10 mg Hydralazine HCl (Apresoline) 20 mg PO QID [facility] Last Admin: 09/18/17 14:54 Dose: 20 mg Meropenem (Merrem Iv 1 Gm Premix) 50 mls @ 100 mls/hr IVPB Q12 [facility] PRN Reason: Protocol Last Admin: 09/18/17 10:30 Dose: 100 mls/hr Lisinopril (Zestril) 15 mg PO BID [facility] Last Admin: 09/18/17 11:11 Dose: 15 mg Metoprolol Tartrate (Lopressor) 25 mg PO BID [facility] Last Admin: 09/18/17 10:00 Dose: 25 mg Ondansetron HCl (Zofran Inj) 4 mg IVP Q4H PRN PRN Reason: Nausea/Vomiting Pantoprazole Sodium (Protonix Ec Tab) 40 mg PO ACB [facility] Last Admin: 09/17/17 09:40 Dose: 40 mg Paroxetine HCl (Paxil) 20 mg PO DAILY [facility] Last Admin: 09/18/17 10:30 Dose: 20 mg Tobramycin Sulfate (Tobrex 0.3% Ophth Soln) 1 drop OU QID [facility] Last Admin: 09/18/17 11:11 Dose: 1 drop Zolpidem Tartrate (Ambien) 5 mg PO HS [facility] Last Admin: 09/17/17 21:26 Dose: 5 mg - Labs Labs: 09/18/17 06:20 09/18/17 06:20 PT 11.6 SECONDS (9.4-12.5) 09/14/17 08:25 INR 1.05 (0.93-1.08) 09/14/17 08:25 APTT 23.3 Seconds (25.1-36.5) L 09/14/17 08:25 - Constitutional Appears: Non-toxic, No Acute Distress, Chronically Ill - Head Exam Head Exam: ATRAUMATIC, NORMOCEPHALIC - Eye Exam Eye Exam: EOMI, Normal appearance - ENT Exam ENT Exam: Mucous Membranes Moist - Neck Exam Neck Exam: Normal Inspection - Respiratory Exam Respiratory Exam: Clear to Ausculation Bilateral, NORMAL BREATHING PATTERN - Cardiovascular Exam Cardiovascular Exam: REGULAR RHYTHM, +S1, +S2 - GI/Abdominal Exam GI & Abdominal Exam: Soft, Normal Bowel Sounds. absent: Tenderness - Exam Additional comments: Hidalgo in place - Extremities Exam Extremities Exam: Pedal Edema (1+ to proximal sagastume b/l). absent: Calf Tenderness - Neurological Exam Neurological Exam: Alert, Awake, Oriented x3 - Psychiatric Exam Psychiatric exam: Normal Affect, Normal Mood - Skin Skin Exam: Dry, Intact Assessment and Plan - Assessment and Plan (Free Text) Assessment: 82 year old Macedonian speaking female with a history of HTN, Dyslipidemia, obesity , uterine cancer (s/p Hysterectomy), OA, GERD, depression, and recurrent UTIs who is admitted for symptomatic UTI with hydronephrosis and questionable pyelonephritis Plan: 1. UTI -UCx shows Enterobacter cloacae, resistant to multiple antibiotics; repeat UA and UCx ordered -Continue Merrem (d4), as per ID; patient will require total 10-14 days of IV Abx -Patient accepted to TCU, will transfer when bed is available, for continued IV abx and physical rehabilitation - Patient has history of VRE and ESBL; will require isolation room, must remain on medical floor until that is available -Patient remains afebrile; blood cultures negative -Zofran PRN for nausea -Motrin and Tylenol PRN for fever -Urology consulted, appreciate recs -ID on consult, appreciate recs 3. h/o of Normocytic anemia -H&H stable today; continue to monitor -Patient asymptomatic at this time. 4. Urinary voiding complications. -Patient has history of chronic urinary retention after pelvic surgeries and radiation -Per urology, patient will require indwelling hidalgo vs self catheterization 3x daily; renal US in 3 weeks to confirm resolution of hydronephrosis -Urology on consult, appreciate recs 5. Hypertension -Continue home antihypertensives -Continue PRN hydralazine 6. Dyslipidemia -Continue home medications 7. GERD -Continue home medications. 8. Diarrhea - Patient has history of chronic diarrhea, but has been on IV abx multiple times in the past - Ordered stool for C diff; collected today GI/DVT Ppx - Protonix, Heparin Patient seen, discsussed, and reviewed with attending
[2017-09-18 22:12] VITALS: BP 148/74; PULSE 67
--- NOTE | 2017-09-19 12:36 | CP.PCM.DIS ---
Provider - Provider Date of Admission: 09/14/17 12:23 Attending physician: Jimmy White MD Primary care physician: Karly Pacheco MD Consults: ID Urology Time Spent in preparation of Discharge (in minutes): 55 Diagnosis - Discharge Diagnosis (1) Acute renal failure Status: Acute (2) Hydronephrosis Status: Acute (3) SIRS (systemic inflammatory response syndrome) Status: Acute (4) UTI (urinary tract infection) Status: Acute Hospital Course - Lab Results Lab Results: Micro Results 09/18/17 09:20 Stool C. difficile Antigen & Toxin A,B (M - Final Most Recent Lab Values WBC 6.3 10^3/ul (4.5-11.0) 09/18/17 06:20 RBC 3.69 10^6/uL (3.5-6.1) 09/18/17 06:20 Hgb 10.4 g/dL (12.0-16.0) L 09/18/17 06:20 Hct 32.8 % (36.0-48.0) L 09/18/17 06:20 MCV 88.9 fl (80.0-105.0) 09/18/17 06:20 MCH 28.2 pg (25.0-35.0) 09/18/17 06:20 MCHC 31.7 g/dl (31.0-37.0) 09/18/17 06:20 RDW 14.3 % (11.5-14.5) 09/18/17 06:20 Plt Count 226 10^3/uL (120.0-450.0) 09/18/17 06:20 MPV 10.0 fl (7.0-11.0) 09/18/17 06:20 Gran % 70.7 % (50.0-68.0) H 09/18/17 06:20 Lymph % (Auto) 19.5 % (22.0-35.0) L 09/18/17 06:20 Henry % (Auto) 6.8 % (1.0-6.0) H 09/18/17 06:20 Eos % (Auto) 2.7 % (1.5-5.0) 09/18/17 06:20 Baso % (Auto) 0.3 % (0.0-3.0) 09/18/17 06:20 Gran # 4.45 (1.4-6.5) 09/18/17 06:20 Lymph # 1.2 (1.2-3.4) 09/18/17 06:20 Henry # 0.4 (0.1-0.6) 09/18/17 06:20 Eos # 0.2 (0.0-0.7) 09/18/17 06:20 Baso # 0.02 K/mm3 (0.0-2.0) 09/18/17 06:20 PT 11.6 SECONDS (9.4-12.5) 09/14/17 08:25 INR 1.05 (0.93-1.08) 09/14/17 08:25 APTT 23.3 Seconds (25.1-36.5) L 09/14/17 08:25 pO2 54 mm/Hg (30-55) 09/14/17 08:25 VBG pH 7.33 (7.32-7.43) 09/14/17 08:25 VBG pCO2 39.0 (40-60) L 09/14/17 08:25 VBG HCO3 20.6 mmol/l (21-28) L 09/14/17 08:25 VBG Total CO2 21.8 mmol.L (22-28) L 09/14/17 08:25 VBG O2 Sat (Calc) 89.3 % (40-65) H 09/14/17 08:25 VBG Base Excess -4.9 mmol/L (0.0-2.0) L 09/14/17 08:25 VBG Potassium 4.4 mmol/L (3.6-5.2) 09/14/17 08:25 Sodium 139.0 mmol/L (132-148) 09/14/17 08:25 Chloride 109.0 mmol/L (98-107) H 09/14/17 08:25 Glucose 131 mg/dl (65-105) H 09/14/17 08:25 Lactate 1.8 mmol/L (0.7-2.1) 09/14/17 08:25 FiO2 21.0 % 09/14/17 08:25 Sodium 142 mmol/L (132-148) 09/18/17 06:20 Potassium 4.0 mmol/L (3.6-5.0) 09/18/17 06:20 Chloride 107 mmol/L (98-107) 09/18/17 06:20 Carbon Dioxide 26 mmol/L (21-33) 09/18/17 06:20 Anion Gap 14 (10-20) 09/18/17 06:20 BUN 13 mg/dL (7-21) 09/18/17 06:20 Creatinine 1.0 mg/dl (0.7-1.2) 09/18/17 06:20 Est GFR ( Amer) > 60 09/18/17 06:20 Est GFR (Non-Af Amer) 53 09/18/17 06:20 Random Glucose 102 mg/dL (70-110) 09/18/17 06:20 Calcium 9.0 mg/dL (8.4-10.5) 09/18/17 06:20 Phosphorus 3.7 mg/dL (2.5-4.5) 09/14/17 08:25 Magnesium 1.9 mg/dL (1.7-2.2) 09/15/17 08:10 Total Bilirubin 0.2 mg/dL (0.2-1.3) 09/18/17 06:20 AST 20 U/L (14-36) 09/18/17 06:20 ALT 28 U/L (7-56) 09/18/17 06:20 Alkaline Phosphatase 82 U/L (38-126) 09/18/17 06:20 Lactate Dehydrogenase 433 U/L (333-699) 09/14/17 08:25 Total Creatine Kinase 57 U/L (35-230) 09/14/17 08:25 Troponin I < 0.01 ng/mL D 09/14/17 08:25 Total Protein 6.0 g/dL (5.8-8.3) 09/18/17 06:20 Albumin 3.1 g/dL (3.0-4.8) 09/18/17 06:20 Globulin 2.9 gm/dL 09/18/17 06:20 Albumin/Globulin Ratio 1.1 (1.1-1.8) 09/18/17 06:20 Amylase 72 U/L (35-125) 09/14/17 08:25 Lipase 216 U/L (23-300) 09/14/17 08:25 Venous Blood Potassium 4.4 mmol/L (3.6-5.2) 09/14/17 08:25 Urine Color Yellow (YELLOW) 09/18/17 09:20 Urine Appearance Sl cloudy (CLEAR) 09/18/17 09:20 Urine pH 6.0 (4.7-8.0) 09/18/17 09:20 Ur Specific [place] 1.020 (1.005-1.035) 09/18/17 09:20 Urine Protein 100 mg/dL (<30 mg/dL) H 09/18/17 09:20 Urine Glucose (UA) Negative mg/dL (NEGATIVE) 09/18/17 09:20 Urine Ketones Negative mg/dL (NEGATIVE) 09/18/17 09:20 Urine Blood Small (NEGATIVE) H 09/18/17 09:20 Urine Nitrate Negative (NEGATIVE) 09/18/17 09:20 Urine Bilirubin Negative (NEGATIVE) 09/18/17 09:20 Urine Urobilinogen 0.2 E.U./dL (<1 E.U./dL) 09/18/17 09:20 Ur Leukocyte Esterase Small Joaquin/uL (NEGATIVE) H 09/18/17 09:20 Urine RBC 2 - 5 /hpf (0-2) 09/18/17 09:20 Urine WBC 15 - 20 /hpf (0-6) 09/18/17 09:20 Ur Epithelial Cells 0 - 2 /hpf (0-5) 09/18/17 09:20 Urine Bacteria Many (NEG) 09/18/17 09:20 Influenza Typ A,B (EIA) Negative for flu a/b (NEGATIVE) 09/15/17 18:40 - Hospital Course Hospital Course: Patient was transfered last night from med/surg to TCU. Please see H&P from today for TCU visit for hospital course Discharge Exam - Head Exam Head Exam: ATRAUMATIC, NORMOCEPHALIC - Additional Findings Additional findings: Patient was seen yesterday, progress note written. Please see exam from that progress note for physical exam on the day of discharge. Discharge Plan - Follow Up Plan Condition: FAIR Disposition: REHAB FACILITY/REHAB UNIT Instructions: Pneumococcal Vaccine for Adults (GEN), Acute Kidney Injury (DC), Urinary Tract Infection in Women (DC), Urinary Tract Infection in Men (DC), Influenza (DC), Acute Urinary Retention in Women (GEN), Dysuria (GEN), Fall Prevention (GEN) Additional Instructions: 1. Patient discharged to TCU for rehabilitation and continued IV antibiotics 2. Continue IV antibiotics for total 10 days 3. Continue all other medications as prescribed Referrals: Karly Barron MD [Primary Care Provider] -
== END 2017-09-18 22:24 | DRG 872 ==
LOC: ED 07:46 → ERH 12:23 → 5RNO 13:56
PROVIDERS: ADMIT Internal Medicine; ATTEND Internal Medicine
DX: A41.59 Other Gram-negative sepsis (principal); K56.699 Other intestinal obstruction unspecified as to partial versus complete obstruction; N17.9 Acute kidney failure, unspecified; E87.2 Acidosis; I48.91 Unspecified atrial fibrillation; E86.0 Dehydration; N13.30 Unspecified hydronephrosis; N31.2 Flaccid neuropathic bladder, not elsewhere classified; N28.1 Cyst of kidney, acquired; N39.0 Urinary tract infection, site not specified; D50.9 Iron deficiency anemia, unspecified; E66.9 Obesity, unspecified; E78.00 Pure hypercholesterolemia, unspecified; B96.20 Unspecified Escherichia coli [E. coli] as the cause of diseases classified elsewhere; E78.5 Hyperlipidemia, unspecified; F32.89 Other specified depressive episodes; I10 Essential (primary) hypertension; K21.9 Gastro-esophageal reflux disease without esophagitis; M06.4 Inflammatory polyarthropathy; M19.011 Primary osteoarthritis, right shoulder; N32.89 Other specified disorders of bladder; Y84.2 Radiological procedure and radiotherapy as the cause of abnormal reaction of the patient, or of later complication, without mention of misadventure at the time of the procedure; Z16.24 Resistance to multiple antibiotics; Z68.31 Body mass index [BMI] 31.0-31.9, adult; Z79.82 Long term (current) use of aspirin; Z79.899 Other long term (current) drug therapy; Z85.42 Personal history of malignant neoplasm of other parts of uterus; Z87.01 Personal history of pneumonia (recurrent); Z87.440 Personal history of urinary (tract) infections; Z90.49 Acquired absence of other specified parts of digestive tract; Z90.710 Acquired absence of both cervix and uterus; Z98.41 Cataract extraction status, right eye; M25.551 Pain in right hip; G89.29 Other chronic pain; K52.9 Noninfective gastroenteritis and colitis, unspecified; K44.9 Diaphragmatic hernia without obstruction or gangrene

== ENCOUNTER 2017-09-18 22:43 | Inpatient (IN) | payer OTHER ==
--- NOTE | 2017-09-19 00:36 | CP.PCM.PN ---
Subjective - Date & Time of Evaluation Date of Evaluation: 09/19/17 Time of Evaluation: 22:45 - Subjective Subjective: Code Star was called on patient by RN, Patient seen and examined at bedside. Patient is Ghanaian speaking only. Interpretation machine is currently not working. Multiple calls placed to patients POA without success. As per RN the patient was brought from the floors and left in her TCU room. House staff found the patient on the floor after an unknown amount of time. As per witnesses the patient was lying on her right side. Ghanaian speaking house staff was used to gain more information. As per poultry packer, the patient states that she was attempting to leave her bed and sit in her bedside chair when she lost her balance. She fell onto her right side. Denies loss of consciousness and head trauma. Denies headache, blurry vision, ringing in the ears, fever, chills, chest pain, SOB, abdominal pain, N/V , diarrhea, constipation, and urinary symptoms. Multiple attempts are made to establish the patients cognitive state. Patient refuses to answer her first and last name, stating that "she does not have a first and last name" followed by laughter. It was conveyed to her that she could be experiencing a life threatening intracranial bleed however she refuses to cooperate. The seriousness of this situation was conveyed via the poultry packer multiple times however the patient continued to refuse proper care. States that she has been through too many tests and does not want to undergo further imaging at this time. Extensive conversation was conducted with attending physician whether to take patient to imaging considering patient is AAO x 2. Was instructed by attending to start neurochecks q4, place a 1:1, and continue attempting to contact her POA. 12 point review of systems negative except has indicated in HPI. - Constitutional Appears: Non-toxic, No Acute Distress, Chronically Ill - Head Exam Head Exam: ATRAUMATIC, NORMOCEPHALIC - Eye Exam Eye Exam: Perrl - ENT Exam ENT Exam: Mucous Membranes Moist - Neck Exam Neck Exam: Normal Inspection - Respiratory Exam Respiratory Exam: Clear to Ausculation Bilateral, NORMAL BREATHING PATTERN - Cardiovascular Exam Cardiovascular Exam: REGULAR RHYTHM, +S1, +S2 - GI/Abdominal Exam GI & Abdominal Exam: Soft, Normal Bowel Sounds. absent: Tenderness - Exam Additional comments: Workman in place - Extremities Exam Extremities Exam: Full ROM of left hip, limited range of motion of the right hip , Pedal Edema (1+ to proximal sagastume b/l). absent: Calf Tenderness - Neurological Exam Neurological Exam: patient is awake and alert, speaking in her tolowa dee-ni' language, smiling, AAOx2 to place and time; refusing to provide us with her first and last name despite multiple attempts. Patient laughs and repeatedly states that she does not have a first and last name. She states she does not want further exams. - Skin Skin Exam: Dry, Intact Assessment and Plan: Patient is a 82 year old Ghanaian speaking female with a history of HTN, Dyslipidemia, obesity, uterine cancer (s/p Hysterectomy), OA, GERD, depression, and recurrent UTIs who was admitted for evaluation and treatment of symptomatic UTI with hydronephrosis and questionable pyelonephritis. Transferred to TCU for rehabilitation. Suspected Mechanical Fall - CT of head ordered stat- patient is refusing imaging - X-rays of bilateral hips ordered stat- patient is refusing imaging - will continue to attempt to reach POA in hopes to convince patient of emergent need for having imaging done - RN made aware to start neurochecks q4 hours immediately and have a 1:1 at all times with this patient, RN informed to continue medications from floors but to hold anticoagulants. RN informed to place SCDs on patient. - patient made aware that her refusal for proper evaluation increases her risk for morbidity, mortality, , and paralysis - patient case will be endorsed to day team Patient seen with, case extensively discussed with, and plan approved by attending physician, Dr. Handley. Objective - Medications Medications: Current Medications Acetaminophen (Tylenol 325mg Tab) 650 mg PO Q6H PRN; Protocol PRN Reason: fever Atorvastatin Calcium (Lipitor) 10 mg PO DIN [facility] PRN Reason: Protocol Diltiazem HCl (Cardizem) 240 mg PO DAILY [facility] PRN Reason: Protocol Hydralazine HCl (Apresoline) 10 mg IVP Q6 PRN; Protocol PRN Reason: Systolic Blood Pressure Meropenem 1,000 mg/ Sodium (Chloride) 50 mls @ 100 mls/hr IVPB Q12 [facility] PRN Reason: Protocol Stop: 09/19/17 10:29 Lisinopril (Zestril) 15 mg PO BID [facility] PRN Reason: Protocol Metoprolol Tartrate (Lopressor) 25 mg PO BID [facility] PRN Reason: Protocol Ondansetron HCl (Zofran Inj) 4 mg IVP Q4H PRN; Protocol PRN Reason: Nausea/Vomiting Pantoprazole Sodium (Protonix Ec Tab) 40 mg PO 0600 [facility] PRN Reason: Protocol Paroxetine HCl (Paxil) 20 mg PO DAILY [facility] PRN Reason: Protocol Tobramycin Sulfate (Tobrex 0.3% Oph Soln) 1 drop OU QID [facility] PRN Reason: Protocol Zolpidem Tartrate (Ambien) 5 mg PO HS [facility] PRN Reason: Protocol
[2017-09-19 01:13] LABS: BASO # 0.04 K/mm3 (0.0-2.0); BASO % 0.4 % (0.0-3.0); EOS # 0.2 (0.0-0.7); EOS % 1.9 % (1.5-5.0); GRAN # 6.99 (1.4-6.5); GRAN % 70.1 % (50.0-68.0); LYMPH # 2.1 (1.2-3.4); LYMPH % 20.9 % (22.0-35.0); MEAN CELL VOLUME 88.6 fl (80.0-105.0); MEAN CORPUSCULAR HEMOGLOBIN 28.3 pg (25.0-35.0); MEAN CORPUSCULAR HGB CONC 31.9 g/dl (31.0-37.0); MEAN PLATELET VOLUME 10.2 fl (7.0-11.0); MONO # 0.7 (0.1-0.6); MONO % 6.7 % (1.0-6.0); RED CELL DISTRIBUTION WIDTH 14.1 % (11.5-14.5)
[2017-09-19 01:18] LABS: INR 1.12 (0.93-1.08)
[2017-09-19 01:40] LABS: ALB/GLOB RATIO 1.1 (1.1-1.8); BILIRUBIN,TOTAL 0.3 mg/dL (0.2-1.3); CALCIUM 9.3 mg/dL (8.4-10.5); TOTAL PROTEIN 6.4 g/dL (5.8-8.3)
[2017-09-19] MEDS: Pantoprazole 40 mg EC Tab PO SCH (05:26)
[2017-09-19] MEDS: diltiaZEM 240 mg/24 Hours CD Cap PO SCH (09:20)
[2017-09-19] MEDS: Tobramycin 0.3% OPHT SOLN OU SCH ×4 (09:23→22:04)
[2017-09-19] MEDS ORDERED: diltiaZEM 240 mg/24 Hours CD Cap PO SCH (10:00)
[2017-09-19] MEDS ORDERED: Meropenem IV 1 gm in NS 50 ML IVPB SCH (10:00)
--- NOTE | 2017-09-19 12:49 | CP.PCM.HP ---
<Tavares Galindo - Last Filed: 09/19/17 12:39> History of Present Illness - History of Present Illness History of Present Illness: Kevindarcy Mateo FERNÁNDEZ PGY1 - Internal Medicine H&P CC: UTI and deconditioning 82 year old female with PMH significant for HTN, dyslipidemia, obesity, uterine cancer S/P hysterectomy, osteoarthritis, GERD, depression, E. 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 She was found to have significant urinary retention with grossly distended bladder, hydonephrosis, and hydroureter, in addition to a UTI. Urine cultures eventually grew enterobacter cloacae. She was started on IV antibiotics by the infectious disease specialist, and was recommended to continue with the indwelling catheter vs intermittent self catheterization for chronic urinary retention. She remains on contact precautions for multidrug resistant UTI. Last night, code star was called, and patient was being very noncompliant with exam. Eventually, she went for head CT and hip XR, which were both negative. Today, patient reports that she was behaving the way she was to avoid further testing, possible transfer, or surgery, which she did not want. She now denies any pain or weakness. Patient currently denies any fever, chills, nausea, vomiting, diarrhea, constipation, abdominal pain, back pain, weakness, numbness. 12 point ROS was obtained and was negative except as in HPI Past medical history: See above Past surgical history: Cholecystectomy, Hysterectomy, right hip arthroplasty Allergies: NKDA Medications: See MAR Social history: Denies alcohol or tobacco use. Denies illicit drug use. Lives alone. Performs ADL'S and IDL's with assistance from son and walker. Present on Admission - Present on Admission Any Indicators Present on Admission: Yes History of DVT/PE: No History of Uncontrolled Diabetes: No Urinary Catheter: Yes Decubitus Ulcer Present: No Past Patient History - Infectious Disease Hx of Infectious Diseases: None - Past Medical History & Family History Past Medical History?: Yes - Past Social History Smoking Status: Never Smoked - CARDIAC Hx Hypercholesterolemia: Yes Hx Hypertension: Yes - PULMONARY Hx Respiratory Disorders: Yes Hx Pneumonia: Yes - NEUROLOGICAL Hx Dizziness: No - HEENT Hx HEENT Problems: Yes (EYE INFECTION) Hx Cataracts: Yes (RT EYE CATARACT EXTRACTION) - RENAL Hx Chronic Kidney Disease: No - ENDOCRINE/METABOLIC Hx Endocrine Disorders: No - HEMATOLOGICAL/ONCOLOGICAL Hx Blood Disorders: Yes Hx Anemia: Yes (IRON DEFICIENCY) - INTEGUMENTARY Hx Dermatological Problems: No - MUSCULOSKELETAL/RHEUMATOLOGICAL Hx Falls: Yes - GASTROINTESTINAL Hx Gastrointestinal Disorders: Yes (GERD) - GENITOURINARY/GYNECOLOGICAL Hx Genitourinary Disorders: Yes (urine retention, UTI) Hx Reproductive Disorders: Yes (h/o Uterine CA) - PSYCHIATRIC Hx Emotional Abuse: No Hx Physical Abuse: No Hx Substance Use: No - SURGICAL HISTORY Hx Surgeries: Yes Hx Cholecystectomy: Yes Other/Comment: rt eye cataract Sep 1103/2017 - ANESTHESIA Hx Anesthesia: Yes Hx Anesthesia Reactions: No Hx Malignant Hyperthermia: No Meds Allergies/Adverse Reactions: Allergies Allergy/AdvReac Type Severity Reaction Status Date / Time No Known Allergies Allergy Verified 09/14/17 14:32 Physical Exam - Constitutional Appears: Non-toxic, No Acute Distress - Head Exam Head Exam: ATRAUMATIC, NORMOCEPHALIC - Eye Exam Eye Exam: EOMI, Normal appearance, PERRL - ENT Exam ENT Exam: Mucous Membranes Moist - Neck Exam Neck exam: Positive for: Normal Inspection - Respiratory Exam Respiratory Exam: Clear to Auscultation Bilateral, NORMAL BREATHING PATTERN - Cardiovascular Exam Cardiovascular Exam: REGULAR RHYTHM, +S1, +S2 - GI/Abdominal Exam GI & Abdominal Exam: Normal Bowel Sounds, Soft. absent: Distended, Firm, Guarding, Rebound, Rigid, Tenderness - Extremities Exam Extremities exam: Positive for: normal inspection. Negative for: calf tenderness, joint swelling, pedal edema, tenderness Additional comments: No ecchymosis. Normal ROM - Neurological Exam Neurological exam: Alert, CN II-XII Intact, Oriented x3 - Psychiatric Exam Psychiatric exam: Normal Affect, Normal Mood - Skin Skin Exam: Dry, Intact, Normal Color Results - Vital Signs Recent Vital Signs: Last Vital Signs Temp 98.7 F 09/19/17 11:28 Pulse 56 L 09/19/17 11:28 Resp 18 09/19/17 11:28 BP 145/79 09/19/17 11:28 Pulse Ox 96 09/19/17 11:28 - Labs Result Diagrams: 09/19/17 00:35 09/19/17 00:35 Labs: Laboratory Results - last 24 hr 09/19/17 09/19/17 09/19/17 00:35 00:35 00:35 WBC 10.0 D RBC 3.61 Hgb 10.2 L Hct 32.0 L MCV 88.6 MCH 28.3 MCHC 31.9 RDW 14.1 Plt Count 229 MPV 10.2 Gran % 70.1 H Lymph % (Auto) 20.9 L Gregory % (Auto) 6.7 H Eos % (Auto) 1.9 Baso % (Auto) 0.4 Gran # 6.99 H Lymph # 2.1 Gregory # 0.7 H Eos # 0.2 Baso # 0.04 PT 12.2 INR 1.12 H Sodium 138 Potassium 4.0 Chloride 102 Carbon Dioxide 27 Anion Gap 13 BUN 17 Creatinine 1.1 Est GFR ( Amer) 58 Est GFR (Non-Af Amer) 48 Random Glucose 100 Calcium 9.3 Total Bilirubin 0.3 AST 20 ALT 30 Alkaline Phosphatase 93 Total Protein 6.4 Albumin 3.3 Globulin 3.1 Albumin/Globulin Ratio 1.1 Assessment & Plan - Assessment and Plan (Free Text) Assessment: 82 year old Occitan speaking female with a history of HTN, Dyslipidemia, obesity , uterine cancer (s/p Hysterectomy), OA, GERD, depression, and recurrent UTIs who is admitted for symptomatic UTI with hydronephrosis; now admitted to the TCU for continue IV Abx and rehabilitation of deconditioning Plan: 1. Deconditioning - Continue physical therapy for rehabilitation 2. UTI -UCx shows Enterobacter cloacae, resistant to multiple antibiotics; repeat UA and UCx ordered -Continue Merrem (dd), as per ID; patient will require total 10-14 days of IV Abx -Patient remains afebrile; blood cultures negative -Zofran PRN for nausea -Motrin and Tylenol PRN for fever -Urology consulted, appreciate recs -ID on consult, appreciate recs 4. h/o of Normocytic anemia -H&H stable today; continue to monitor -Patient asymptomatic at this time. 5. Chronic urinary retention -Per urology, patient will require indwelling hidalgo vs self catheterization 3x daily; renal US in 3 weeks to confirm resolution of hydronephrosis -Urology on consult, appreciate recs 6. Hypertension -Continue home antihypertensives -Continue PRN hydralazine 7. Dyslipidemia -Continue home medications 8. GERD -Continue home medications. 9. Diarrhea - Patient has history of chronic diarrhea, but has been on IV abx multiple times in the past - Stool for C diff negative; no treatment indicated GI/DVT Ppx - Protonix, Heparin Patient seen, discsussed, and reviewed with attending <Jimmy White - Last Filed: 09/20/17 12:31> Results - Vital Signs Recent Vital Signs: Last Vital Signs Temp 97.6 F 09/20/17 10:59 Pulse 56 L 09/20/17 11:00 Resp 18 09/20/17 10:59 BP 140/56 L 09/20/17 11:00 Pulse Ox 93 L 09/20/17 10:59 - Labs Result Diagrams: 09/19/17 00:35 09/19/17 00:35 Labs: Laboratory Results - last 24 hr 09/20/17 08:06 Urine Color Yellow Urine Appearance Clear Urine pH 6.0 Ur Specific [place] 1.020 Urine Protein 30 H Urine Glucose (UA) Negative Urine Ketones Negative Urine Blood Trace-intact H Urine Nitrate Negative Urine Bilirubin Negative Urine Urobilinogen 0.2 Ur Leukocyte Esterase Small H Urine RBC 0 - 2 Urine WBC 10 - 15 Ur Epithelial Cells 1 - 3 Attending/Attestation - Attestation I have personally seen and examined this patient.: Yes I have fully participated in the care of the patient.: Yes I have reviewed all pertinent clinical information: Yes Notes (Text): 09/20/17 12:27 Patient was seen and examined with medical doctor. Agreed with resident assessment and plan. 82 year old female with PMH of HTN, Dyslipidemia, obesity, uterine cancer (s/p Hysterectomy), OA, GERD, depression, and recurrent UTI was admitted with sepsis due to UTI with hydronephrosis .Urine cultures are growing Enterobacter cloacae, resistant to multiple antibiotics.She is on IV Merropenem , as per ID ; Blood cultures are negative for any growth. Her anti hypertensive medications are adjusted. Patient had fall last night, CT head is negative.There is no fracture on X ray.Patient is at base line. Patient is admitted to TCU for IV antibiotics and for physical therapy . Management plan was discussed in detail with patient and patient daughter who is at bed side. Education was provided.
[2017-09-19] MEDS: Meropenem IV 1 gm in NS 50 ML IVPB SCH (17:59)
--- NOTE | 2017-09-20 02:52 | CON ---
DATE: 09/19/2017 The patient is seen in room 316. No fever. No chills. No nausea. The patient is seen with weakness. HISTORY OF PRESENT ILLNESS: This is an 82-year-old female with a history of E. coli bacteremia, history of E. coli urinary tract infection, history of ESBL Klebsiella, history of VRE bacteremia, obesity with BMI of 31, uterine cancer, atrial fibrillation, pseudogout, hypertension, osteoarthritis, and depression who was admitted to acute care and was found to have sepsis with Enterobacter urinary tract infection, multidrug resistant and treated with meropenem, and now transferred to transitional care to complete her therapy. REVIEW OF SYSTEMS: Revealed the patient has no fever. No chills. Now, the patient is much improved. No chest pain or shortness of breath. PAST MEDICAL HISTORY: Significant for hypertension, pseudogout, atrial fibrillation, depression, osteoarthritis, uterine cancer, and obesity. In addition to her VRE bacteremia, history of ESBL Klebsiella, history of E. coli urinary tract infection, and history of E. coli bacteriemia. PAST SURGICAL HISTORY: Significant for hysterectomy and cholecystectomy. ALLERGIES: THE PATIENT HAS NO KNOWN ALLERGIES. MEDICATIONS: Reviewed. PHYSICAL EXAMINATION: VITAL SIGNS: The patient's temperature is 98, heart rate is 49, blood pressure is 175/70, and respiratory rate is 20. HEENT: Unremarkable. NECK: Supple. LUNGS: Have decreased breath sounds. HEART: Normal S1 and S2. ABDOMEN: Soft and nontender. LABORATORY DATA: Reveals white count of 10, 000, hemoglobin of 10, and platelets of 229. Chemistries revealed BUN of 17 and creatinine of 1.1. LFTs are noted. Microbiology is reviewed. ASSESSMENT AND PLAN: An 82-year-old with past medical history of atrial fibrillation, pseudogout, hypertension, depression, osteoarthritis, uterine cancer, obesity, vancomycin-resistant Enterococcus bacteremia, history of Klebsiella, Escherichia coli urinary tract infection, Escherichia coli bacteremia, hysterectomy, cholecystectomy, and the patient was admitted to acute care with sepsis with Enterobacter, urinary tract is the source with multidrug resistant. Today is day #5 of meropenem, would complete 10 to 14 days of meropenem, and we will follow closely with you. Case discussed with nursing staff early this morning. Puneet David MD [facility] # [id number]
[2017-09-20] MEDS: Pantoprazole 40 mg EC Tab PO SCH (05:14)
[2017-09-20] MEDS: Meropenem IV 1 gm in NS 50 ML IVPB SCH ×2 (05:14→18:11)
[2017-09-20 08:15] LABS: URINE BILIRUBIN NEGATIVE (NEGATIVE); URINE BLOOD TRACE-INTACT (NEGATIVE); URINE GLUCOSE (UA) NEGATIVE (NEGATIVE); URINE KETONE NEGATIVE (NEGATIVE); URINE LEUKOCYTE ESTERASE SMALL Leu/uL (NEGATIVE); URINE PROTEIN 30 mg/dL (<30 mg/dL); URINE UROBILINOGEN 0.2 E.U./dL (<1 E.U./dL)
[2017-09-20 08:16] LABS: URINE APPEARANCE CLEAR (CLEAR); URINE COLOR YELLOW (YELLOW)
[2017-09-20 08:34] LABS: URINE RBC 0 - 2 /hpf (0-2)
[2017-09-20] MEDS: diltiaZEM 240 mg/24 Hours CD Cap PO SCH (10:48)
[2017-09-20] MEDS: Tobramycin 0.3% OPHT SOLN OU SCH ×4 (10:56→23:12)
--- NOTE | 2017-09-20 11:21 | PN ---
DATE: 09/20/2017 SUBJECTIVE: The patient is in bed, in no acute distress, nontoxic. PHYSICAL EXAMINATION: VITAL SIGNS: Temperature is 98, blood pressure is 120/50, respiratory rate of 20, and heart rate of 93. HEENT: Unremarkable. NECK: Supple. LUNGS: Have decreased breath sounds. HEART: Normal S1 and S2. ABDOMEN: Soft and nontender. LABORATORY DATA: Reveals white count of 10,000, hemoglobin of 10, and platelets of 229. BUN of 17 and creatinine of 1.1. Urinalysis is noted. ASSESSMENT AND PLAN: This is an 82-year-old female seen earlier this morning in room 316. The patient with past medical history of atrial fibrillation, pseudogout, hypertension, depression, osteoarthritis, uterine cancer, obesity with history of vancomycin-resistant Enterococcus bacteremia and history of Klebsiella, history of Escherichia coli urinary tract infection and Escherichia coli bacteremia, hysterectomy, cholecystectomy, and the patient was admitted to the acute care with sepsis with Enterobacter urine as the source and day #6 of meropenem with complete 10-14 days. The patient did have a history of vancomycin-resistant Enterococcus in the urine. The patient did not have vancomycin-resistant Enterococcus bacteremia, vancomycin-resistant Enterococcus was in the urine by history. We will follow with you. Review of orders confirms the meropenem to be active. Puneet David MD
--- NOTE | 2017-09-20 15:47 | PN ---
DATE: 09/20/2017 GENITOURINARY PROGRESS NOTE SUBJECTIVE: The patient is now seen on the Transitional Care Unit at [facility] (Formerly [facility]). The patient is well known to me. He has a history of urinary retention and incomplete bladder emptying after a sling procedure many years ago in [place]. The patient was admitted now with worsened renal insufficiency and urinary infection, as she had not been catheterizing at home. The patient has been recovering well. PHYSICAL EXAMINATION: GENERAL: She is awake, alert, speaks mostly Malian. No acute complaints. VITAL SIGNS: Temperature is 97.6, pulse of 56, blood pressure 140/56, and respirations 18. ABDOMEN: Soft, nontender, and nondistended with no hepatosplenomegaly. There is no CVA tenderness. GENITOURINARY: Bladder is not palpably distended. Workman catheter in place draining clear urine. The patient put out about 2 liters of urine yesterday. LABORATORY DATA: BUN is now 17 with a creatinine of 1.1 and a GFR of 48, which is improved. PLAN: Plan for now is to continue Workman catheter drainage. Continue treatment of the patient's other acute medical issues. Her kidney function appears to have improved. Urine culture had grown Enterobacter cloacae. Her blood cultures on this admission had been negative. Urologically, I will continue Workman catheter drainage for now. The patient should be discharged home with the indwelling Workman. The patient will follow up in my office after discharge and we will further assist in teaching her how to do the intermittent catheterization correctly. We will then give the patient a voiding trial and start her on intermittent catheterization, which she should do at least 3 times a day for now until she is stable. Thank you for allowing us to participate the care of this patient. We will continue to follow her with you. Oscar Cuba MD
[2017-09-21] MEDS: Pantoprazole 40 mg EC Tab PO SCH (05:22)
[2017-09-21] MEDS: Meropenem IV 1 gm in NS 50 ML IVPB SCH ×2 (05:22→18:11)
[2017-09-21 07:38] LABS: HEMATOCRIT 32.8 % (36.0-48.0); MEAN CELL VOLUME 89.4 fl (80.0-105.0); MEAN CORPUSCULAR HEMOGLOBIN 28.3 pg (25.0-35.0); MEAN CORPUSCULAR HGB CONC 31.7 g/dl (31.0-37.0); MEAN PLATELET VOLUME 10.1 fl (7.0-11.0); RED CELL DISTRIBUTION WIDTH 14.3 % (11.5-14.5); WHITE BLOOD COUNT 10.3 10^3/ul (4.5-11.0)
[2017-09-21 08:17] LABS: CALCIUM 9.4 mg/dL (8.4-10.5); POTASSIUM 4.3 mmol/L (3.6-5.0)
[2017-09-21] MEDS: diltiaZEM 240 mg/24 Hours CD Cap PO SCH (09:34)
[2017-09-21] MEDS: Tobramycin 0.3% OPHT SOLN OU SCH ×4 (09:58→21:50)
--- NOTE | 2017-09-21 11:01 | CP.PCM.PN ---
<Miguel Ignacio - Last Filed: 09/21/17 11:20> Subjective - Date & Time of Evaluation Date of Evaluation: 09/21/17 Time of Evaluation: 08:30 - Subjective Subjective: Miguel Ignacio DO, PGY-1: Hospitalist Service Patient seen and examined at bedside with family at bedside. Fmaily reports no complications with Hidalgo catheter. Patient denies any fever, chills, suprapubic fullness, diarrhea, or lower abdominal pain. Objective - Vital Signs/Intake and Output Vital Signs (last 24 hours): Temp Pulse Resp BP Pulse Ox 98.2 F 65 18 137/64 95 09/21/17 06:00 09/21/17 09:35 09/21/17 06:00 09/21/17 09:35 09/21/17 06:00 Intake and Output: 09/21/17 09/21/17 06:59 18:59 Intake Total 240 Output Total 1800 Balance -1560 - Medications Medications: Current Medications Acetaminophen (Tylenol 325mg Tab) 650 mg PO Q6H PRN; Protocol PRN Reason: fever Amlodipine Besylate (Norvasc) 5 mg PO HS [facility] Last Admin: 09/20/17 21:41 Dose: 5 mg Atorvastatin Calcium (Lipitor) 10 mg PO DIN [facility] PRN Reason: Protocol Last Admin: 09/20/17 18:00 Dose: 10 mg Diltiazem HCl (Cardizem Cd) 240 mg PO DAILY [facility] PRN Reason: Protocol Last Admin: 09/21/17 09:34 Dose: 240 mg Hydralazine HCl (Apresoline) 10 mg IVP Q6 PRN; Protocol PRN Reason: Systolic Blood Pressure Meropenem (Merrem Iv 1 Gm Premix) 50 mls @ 100 mls/hr IVPB 0600,1800 [facility] PRN Reason: Protocol Stop: 09/28/17 10:01 Last Admin: 09/21/17 05:22 Dose: 100 mls/hr Lisinopril (Zestril) 15 mg PO BID [facility] PRN Reason: Protocol Last Admin: 09/21/17 09:34 Dose: 15 mg Metoprolol Tartrate (Lopressor) 25 mg PO BID [facility] PRN Reason: Protocol Last Admin: 09/21/17 09:35 Dose: 25 mg Ondansetron HCl (Zofran Inj) 4 mg IVP Q4H PRN; Protocol PRN Reason: Nausea/Vomiting Pantoprazole Sodium (Protonix Ec Tab) 40 mg PO 0600 [facility] PRN Reason: Protocol Last Admin: 09/21/17 05:22 Dose: 40 mg Paroxetine HCl (Paxil) 20 mg PO DAILY [facility] PRN Reason: Protocol Last Admin: 09/21/17 09:35 Dose: 20 mg Tobramycin Sulfate (Tobrex 0.3% Ophth Soln) 1 drop OU QID [facility] PRN Reason: Protocol Last Admin: 09/21/17 09:58 Dose: Not Given Zolpidem Tartrate (Ambien) 5 mg PO HS [facility] PRN Reason: Protocol Last Admin: 09/20/17 23:11 Dose: Not Given - Labs Labs: 09/21/17 06:30 09/21/17 06:30 PT 12.2 SECONDS (9.4-12.5) 09/19/17 00:35 INR 1.12 (0.93-1.08) H 09/19/17 00:35 - Constitutional Appears: Well, Non-toxic - Head Exam Head Exam: ATRAUMATIC, NORMOCEPHALIC - Eye Exam Eye Exam: EOMI, Normal appearance - ENT Exam ENT Exam: Mucous Membranes Moist, Normal Oropharynx - Neck Exam Neck Exam: Normal Inspection - Respiratory Exam Respiratory Exam: Clear to Ausculation Bilateral, NORMAL BREATHING PATTERN - Cardiovascular Exam Cardiovascular Exam: RRR, +S1, +S2 - GI/Abdominal Exam GI & Abdominal Exam: Soft, Normal Bowel Sounds - Extremities Exam Extremities Exam: Normal Inspection. absent: Calf Tenderness - Back Exam Back Exam: NORMAL INSPECTION - Neurological Exam Neurological Exam: Awake, CN II-XII Intact - Psychiatric Exam Psychiatric exam: Normal Affect, Normal Mood - Skin Skin Exam: Dry, Intact, Normal Color, Warm Assessment and Plan - Assessment and Plan (Free Text) Assessment: 82 year old Kenyan speaking female with a history of HTN, Dyslipidemia, obesity , uterine cancer (s/p Hysterectomy), OA, GERD, depression, and recurrent UTIs who is admitted for symptomatic UTI with hydronephrosis; now admitted to the TCU for continue IV Abx and rehabilitation of deconditioning Plan: 1. Deconditioning - Continue physical therapy for rehabilitation 2. UTI -UCx shows Enterobacter cloacae, resistant to multiple antibiotics; repeat UA and UCx ordered -Continue Merrem (dd), as per ID; patient will require total 10-14 days of IV Abx -Patient remains afebrile; blood cultures negative -Zofran PRN for nausea -Motrin and Tylenol PRN for fever -Urology consulted, appreciate recs -ID on consult, appreciate recs 4. h/o of Normocytic anemia -H&H stable today; continue to monitor -Patient asymptomatic at this time. 5. Chronic urinary retention -Per urology, patient will require indwelling hidalgo vs self catheterization 3x daily; renal US in 3 weeks to confirm resolution of hydronephrosis -Urology on consult, appreciate recs 6. Hypertension -Continue home antihypertensives -Continue PRN hydralazine 7. Dyslipidemia -Continue home medications 8. GERD -Continue home medications. 9. Diarrhea - Patient has history of chronic diarrhea, but has been on IV abx multiple times in the past - Stool for C diff negative; no treatment indicated GI/DVT Ppx - Protonix, Heparin <Jimmy White - Last Filed: 09/21/17 13:00> Objective - Vital Signs/Intake and Output Vital Signs (last 24 hours): Temp Pulse Resp BP Pulse Ox 98.2 F 65 18 137/64 95 09/21/17 06:00 09/21/17 09:35 09/21/17 06:00 09/21/17 09:35 09/21/17 06:00 Intake and Output: 09/21/17 09/21/17 06:59 18:59 Intake Total 240 Output Total 1800 Balance -1560 - Medications Medications: Current Medications Acetaminophen (Tylenol 325mg Tab) 650 mg PO Q6H PRN; Protocol PRN Reason: fever Amlodipine Besylate (Norvasc) 5 mg PO HS [facility] Last Admin: 09/20/17 21:41 Dose: 5 mg Atorvastatin Calcium (Lipitor) 10 mg PO DIN [facility] PRN Reason: Protocol Last Admin: 09/20/17 18:00 Dose: 10 mg Diltiazem HCl (Cardizem Cd) 240 mg PO DAILY [facility] PRN Reason: Protocol Last Admin: 09/21/17 09:34 Dose: 240 mg Hydralazine HCl (Apresoline) 10 mg IVP Q6 PRN; Protocol PRN Reason: Systolic Blood Pressure Meropenem (Merrem Iv 1 Gm Premix) 50 mls @ 100 mls/hr IVPB 0600,1800 [facility] PRN Reason: Protocol Stop: 09/28/17 10:01 Last Admin: 09/21/17 05:22 Dose: 100 mls/hr Lisinopril (Zestril) 15 mg PO BID [facility] PRN Reason: Protocol Last Admin: 09/21/17 09:34 Dose: 15 mg Metoprolol Tartrate (Lopressor) 25 mg PO BID [facility] PRN Reason: Protocol Last Admin: 09/21/17 09:35 Dose: 25 mg Ondansetron HCl (Zofran Inj) 4 mg IVP Q4H PRN; Protocol PRN Reason: Nausea/Vomiting Pantoprazole Sodium (Protonix Ec Tab) 40 mg PO 0600 [facility] PRN Reason: Protocol Last Admin: 09/21/17 05:22 Dose: 40 mg Paroxetine HCl (Paxil) 20 mg PO DAILY [facility] PRN Reason: Protocol Last Admin: 09/21/17 09:35 Dose: 20 mg Tobramycin Sulfate (Tobrex 0.3% [facility] Soln) 1 drop OU QID [facility] PRN Reason: Protocol Last Admin: 09/21/17 09:58 Dose: Not Given Zolpidem Tartrate (Ambien) 5 mg PO HS [facility] PRN Reason: Protocol Last Admin: 09/20/17 23:11 Dose: Not Given - Labs Labs: 09/21/17 06:30 09/21/17 06:30 PT 12.2 SECONDS (9.4-12.5) 09/19/17 00:35 INR 1.12 (0.93-1.08) H 09/19/17 00:35 Attending/Attestation - Attestation I have personally seen and examined this patient.: Yes I have fully participated in the care of the patient.: Yes I have reviewed all pertinent clinical information, including history, physical exam and plan: Yes Notes (Text): 09/21/17 12:59 Patient was seen and examined with medical registrar. Agreed with resident assessment and plan. 82 year old female with PMH of HTN, Dyslipidemia, obesity, uterine cancer (s/p Hysterectomy), OA, GERD, depression, and recurrent UTI was admitted with sepsis due to UTI with hydronephrosis .Urine cultures are growing Enterobacter cloacae, resistant to multiple antibiotics.She is on IV Merropenem , as per ID ; Blood cultures are negative for any growth. Patient is admitted to TCU for IV antibiotics and for physical therapy .We will continue current treatment. Management plan was discussed in detail with patient and patient daughter who is at bed side. Education was provided.
--- NOTE | 2017-09-21 23:51 | PN ---
DATE: 09/21/2017 SUBJECTIVE: The patient is in bed, in no acute distress, nontoxic. OBJECTIVE: VITAL SIGNS: Temperature is 98, blood pressure is 130/70, respiratory rate of 16. HEENT: Unremarkable. NECK: Supple. LUNGS: Have decreased breath sounds. HEART: Normal S1, S2. ABDOMEN: Soft, nontender. LABORATORY EXAMINATION: Reveals a white count of 10,000, hemoglobin of 10, platelets of 269. Chemistries reveal a BUN of 27, creatinine of 1.2. Urinalysis is noted from yesterday. The patient had 10 to 15 wbc's. Repeat urine culture has no growth. ASSESSMENT AND PLAN: This is an 82-year-old female, seen early this morning in transitional care with a history of atrial fibrillation, pseudogout, hypertension, depression, osteoarthritis, uterine cancer, obesity, history of vancomycin-resistant enterococcus bacteremia, Klebsiella, history of Escherichia coli, urinary tract infection, Escherichia coli bacteremia, hysterectomy, cholecystectomy, and admitted to acute care with sepsis, and Enterobacter urine as the source. Today is day #7 of meropenem, would complete 10 to 14 days and review of the orders confirms the meropenem to be active. We will follow with you. Puneet David MD
[2017-09-22] MEDS: Pantoprazole 40 mg EC Tab PO SCH (05:21)
[2017-09-22] MEDS: Meropenem IV 1 gm in NS 50 ML IVPB SCH ×2 (05:21→18:13)
[2017-09-22] MEDS: Tobramycin 0.3% OPHT SOLN OU SCH ×4 (10:39→22:22)
[2017-09-22] MEDS: diltiaZEM 240 mg/24 Hours CD Cap PO SCH (10:39)
--- NOTE | 2017-09-22 12:49 | PN ---
DATE: 09/22/2017 SUBJECTIVE: The patient is in bed, in no acute distress, nontoxic. No fevers and no chills. PHYSICAL EXAMINATION: VITAL SIGNS: Temperature is 98, blood pressure is 120/50, respiratory rate of 16. HEENT: Unremarkable. NECK: Supple. LUNGS: Decreased breath sounds. HEART: Normal S1, S2. ABDOMEN: Soft, nontender. No organomegaly. No rebound or guarding. No masses. LABORATORY EXAMINATION: Reveals the patient to have white count of 10.3, hemoglobin of 10, platelets are noted. BUN of 27, creatinine of 1.2. ASSESSMENT AND PLAN: An 82-year-old female seen early this morning with a history of atrial fibrillation, pseudogout, hypertension, depression, osteoarthritis, uterine cancer, obesity, history of vancomycin-resistant enterococci urinary tract infection, Klebsiella, and Escherichia coli urinary tract infection and admitted with the acute care with sepsis, Enterobacter in the urine as the source, today is day #8 of meropenem, would complete 10 to 14 days. Review of the orders reveals the patient's meropenem to be active. We will follow with you. Puneet David MD
[2017-09-23] MEDS: Meropenem IV 1 gm in NS 50 ML IVPB SCH ×2 (05:18→17:51)
[2017-09-23] MEDS: Pantoprazole 40 mg EC Tab PO SCH (05:18)
[2017-09-23 06:34] LABS: HEMATOCRIT 32.7 % (36.0-48.0); MEAN CELL VOLUME 88.9 fl (80.0-105.0); MEAN CORPUSCULAR HEMOGLOBIN 28.3 pg (25.0-35.0); MEAN CORPUSCULAR HGB CONC 31.8 g/dl (31.0-37.0); MEAN PLATELET VOLUME 10.2 fl (7.0-11.0); RED CELL DISTRIBUTION WIDTH 14.2 % (11.5-14.5); WHITE BLOOD COUNT 8.1 10^3/ul (4.5-11.0)
[2017-09-23 06:40] LABS: CALCIUM 9.5 mg/dL (8.4-10.5); POTASSIUM 4.3 mmol/L (3.6-5.0)
[2017-09-23] MEDS: diltiaZEM 240 mg/24 Hours CD Cap PO SCH (10:09)
[2017-09-23] MEDS: Tobramycin 0.3% OPHT SOLN OU SCH ×4 (10:10→21:57)
--- NOTE | 2017-09-23 13:50 | CP.PCM.PN ---
<Juan Forrest - Last Filed: 09/23/17 13:46> Subjective - Date & Time of Evaluation Date of Evaluation: 09/23/17 Time of Evaluation: 13:46 - Subjective Subjective: Medicine Progress Note Pt seen and examined at bedside. No acute overnight events. Pt is OOB and ambulating well. Pt denies any further urinary symptoms. Pt denies CP, SOB, n/v/ d, abdominal pain, fever, chills, MILLIGAN, or fatigue. Objective - Vital Signs/Intake and Output Vital Signs (last 24 hours): Temp Pulse Resp BP Pulse Ox 97.8 F 55 L 16 117/55 L 95 09/22/17 10:00 09/23/17 10:10 09/22/17 10:00 09/23/17 10:10 09/21/17 06:00 - Medications Medications: Current Medications Acetaminophen (Tylenol 325mg Tab) 650 mg PO Q6H PRN; Protocol PRN Reason: Arthritis Amlodipine Besylate (Norvasc) 5 mg PO HS [facility] Last Admin: 09/22/17 22:22 Dose: Not Given Atorvastatin Calcium (Lipitor) 10 mg PO DIN [facility] PRN Reason: Protocol Last Admin: 09/22/17 18:00 Dose: 10 mg Diltiazem HCl (Cardizem Cd) 240 mg PO DAILY [facility] PRN Reason: Protocol Last Admin: 09/23/17 10:09 Dose: Not Given Hydralazine HCl (Apresoline) 10 mg IVP Q6 PRN; Protocol PRN Reason: Systolic Blood Pressure Meropenem (Merrem Iv 1 Gm Premix) 50 mls @ 100 mls/hr IVPB 0600,1800 [facility] PRN Reason: Protocol Stop: 09/28/17 10:01 Last Admin: 09/23/17 05:18 Dose: 100 mls/hr Lisinopril (Zestril) 15 mg PO BID [facility] PRN Reason: Protocol Last Admin: 09/23/17 10:10 Dose: 15 mg Metoprolol Tartrate (Lopressor) 25 mg PO BID [facility] PRN Reason: Protocol Last Admin: 09/23/17 10:09 Dose: 25 mg Ondansetron HCl (Zofran Inj) 4 mg IVP Q4H PRN; Protocol PRN Reason: Nausea/Vomiting Pantoprazole Sodium (Protonix Ec Tab) 40 mg PO 0600 [facility] PRN Reason: Protocol Last Admin: 09/23/17 05:18 Dose: 40 mg Paroxetine HCl (Paxil) 20 mg PO DAILY [facility] PRN Reason: Protocol Last Admin: 09/23/17 10:08 Dose: 20 mg Tobramycin Sulfate (Tobrex 0.3% Ophth Soln) 1 drop OU QID [facility] PRN Reason: Protocol Last Admin: 09/23/17 10:10 Dose: Not Given Zolpidem Tartrate (Ambien) 5 mg PO HS [facility] PRN Reason: Protocol Last Admin: 09/22/17 23:36 Dose: 5 mg - Labs Labs: 09/23/17 06:10 09/23/17 06:10 PT 12.2 SECONDS (9.4-12.5) 09/19/17 00:35 INR 1.12 (0.93-1.08) H 09/19/17 00:35 - Constitutional Appears: No Acute Distress - Head Exam Head Exam: NORMAL INSPECTION - Eye Exam Eye Exam: Normal appearance - ENT Exam ENT Exam: Normal Exam - Respiratory Exam Respiratory Exam: Clear to Ausculation Bilateral. absent: Rales, Rhonchi, Wheezes, Respiratory Distress - Cardiovascular Exam Cardiovascular Exam: RRR, +S1, +S2. absent: Gallop, Rubs, Murmur - GI/Abdominal Exam GI & Abdominal Exam: Soft. absent: Distended, Guarding, Tenderness, Rebound - Extremities Exam Extremities Exam: Normal Inspection - Back Exam Back Exam: NORMAL INSPECTION - Neurological Exam Neurological Exam: Alert, Awake, Oriented x3 - Psychiatric Exam Psychiatric exam: Normal Affect, Normal Mood - Skin Skin Exam: Dry, Intact, Normal Color, Warm Assessment and Plan - Assessment and Plan (Free Text) Assessment: 82 year old [place]orese speaking female with a history of HTN, Dyslipidemia, obesity , uterine cancer (s/p Hysterectomy), OA, GERD, depression, and recurrent UTIs who is admitted for symptomatic UTI with hydronephrosis; now admitted to the TCU for continue IV Abx and rehabilitation of deconditioning Plan: 1. Deconditioning - Continue physical therapy for rehabilitation 2. UTI -UCx shows Enterobacter cloacae, resistant to multiple antibiotics; repeat UA and UCx ordered -Continue Merrem (day #9), as per ID; patient will require total 10-14 days of IV Abx -Patient remains afebrile; blood cultures negative -Zofran PRN for nausea -Motrin and Tylenol PRN for fever -Urology consulted, appreciate recs -ID on consult, appreciate recs 4. h/o of Normocytic anemia - H&H stable today; continue to monitor - Patient asymptomatic at this time. 5. Chronic urinary retention - Per urology, patient will require indwelling hidalgo vs self catheterization 3x daily; renal US in 3 weeks to confirm resolution of hydronephrosis - Urology on consult, appreciate recs 6. Hypertension - Continue home antihypertensives - Continue PRN hydralazine 7. Dyslipidemia - Continue home medications 8. GERD - Continue home medications. 9. Diarrhea - Patient has history of chronic diarrhea, but has been on IV abx multiple times in the past - Stool for C diff negative; no treatment indicated 10. H/o Osteoarthritis - Tylenol for pain GI/DVT PPx - Protonix - Heparin Pt seen and discussed in detail with attending. Toni Forrest, PGY1 <Jimmy White - Last Filed: 09/23/17 17:29> Objective - Vital Signs/Intake and Output Vital Signs (last 24 hours): Temp Pulse Resp BP Pulse Ox 98.1 F 55 L 20 117/55 L 96 09/23/17 10:00 09/23/17 10:10 09/23/17 10:00 09/23/17 10:10 09/23/17 10:00 - Medications Medications: Current Medications Acetaminophen (Tylenol 325mg Tab) 650 mg PO Q6H PRN; Protocol PRN Reason: Arthritis Amlodipine Besylate (Norvasc) 5 mg PO HS [facility] Last Admin: 09/22/17 22:22 Dose: Not Given Atorvastatin Calcium (Lipitor) 10 mg PO DIN [facility] PRN Reason: Protocol Last Admin: 09/22/17 18:00 Dose: 10 mg Diltiazem HCl (Cardizem Cd) 240 mg PO DAILY [facility] PRN Reason: Protocol Last Admin: 09/23/17 10:09 Dose: Not Given Hydralazine HCl (Apresoline) 10 mg IVP Q6 PRN; Protocol PRN Reason: Systolic Blood Pressure Meropenem (Merrem Iv 1 Gm Premix) 50 mls @ 100 mls/hr IVPB 0600,1800 [facility] PRN Reason: Protocol Stop: 09/28/17 10:01 Last Admin: 09/23/17 05:18 Dose: 100 mls/hr Lisinopril (Zestril) 15 mg PO BID [facility] PRN Reason: Protocol Last Admin: 09/23/17 10:10 Dose: 15 mg Metoprolol Tartrate (Lopressor) 25 mg PO BID [facility] PRN Reason: Protocol Last Admin: 09/23/17 10:09 Dose: 25 mg Ondansetron HCl (Zofran Inj) 4 mg IVP Q4H PRN; Protocol PRN Reason: Nausea/Vomiting Pantoprazole Sodium (Protonix Ec Tab) 40 mg PO 0600 [facility] PRN Reason: Protocol Last Admin: 09/23/17 05:18 Dose: 40 mg Paroxetine HCl (Paxil) 20 mg PO DAILY [facility] PRN Reason: Protocol Last Admin: 09/23/17 10:08 Dose: 20 mg Tobramycin Sulfate (Tobrex 0.3% Ophth Soln) 1 drop OU QID [facility] PRN Reason: Protocol Last Admin: 09/23/17 14:30 Dose: Not Given Zolpidem Tartrate (Ambien) 5 mg PO HS [facility] PRN Reason: Protocol Last Admin: 09/22/17 23:36 Dose: 5 mg - Labs Labs: 09/23/17 06:10 09/23/17 06:10 PT 12.2 SECONDS (9.4-12.5) 09/19/17 00:35 INR 1.12 (0.93-1.08) H 09/19/17 00:35 Attending/Attestation - Attestation I have personally seen and examined this patient.: Yes I have fully participated in the care of the patient.: Yes I have reviewed all pertinent clinical information, including history, physical exam and plan: Yes Notes (Text): 09/23/17 17:28 Patient was seen and examined with hospitalist medical director. Agreed with resident assessment and plan. 82 year F with PMH of HTN, Dyslipidemia, obesity, uterine cancer (s/p Hysterectomy), OA, GERD, depression, and recurrent UTI was admitted with sepsis due to UTI with hydronephrosis .Urine cultures are growing Enterobacter cloacae , resistant to multiple antibiotics. She is on IV Merropenem for 10 days, Blood cultures are negative for any growth.She will go home with Hidalgo Catheter , and will follow up with Dr.Rosita, as she is planning for self catherization after holidays. Management plan was discussed in detail with patient and patient daughter who is at bed side. Education was provided.
[2017-09-24] MEDS: Meropenem IV 1 gm in NS 50 ML IVPB SCH ×2 (05:22→17:49)
[2017-09-24] MEDS: Pantoprazole 40 mg EC Tab PO SCH (05:23)
[2017-09-24 06:15] VITALS: RESP 18
[2017-09-24] MEDS: diltiaZEM 240 mg/24 Hours CD Cap PO SCH (10:54)
[2017-09-24] MEDS: Tobramycin 0.3% OPHT SOLN OU SCH ×4 (10:58→21:11)
--- NOTE | 2017-09-24 13:03 | PN ---
DATE: 09/24/2017 SUBJECTIVE: The patient is seen earlier in 316. No fevers and no chills. She is doing well. PHYSICAL EXAMINATION: VITAL SIGNS: On exam, temperature is 98, blood pressure is 117/50, and respiratory rate of 16. HEENT: Examination of HEENT is unremarkable. NECK: Supple. LUNGS: Decreased breath sounds. CARDIOVASCULAR: Heart exam is normal S1 and S2. GASTROINTESTINAL: Abdominal examination is soft and nontender. LABORATORY DATA: Laboratory examination reveals a white count of 8.1, hemoglobin of 10, and platelets of 285. Chemistries are noted. BUN of 26 and creatinine of 1.1. Urine cultures are negative. Urine wbc's of 10 to 15. 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 Multidrug resistant organism day number 9 of meropenem, would complete 10 to 14 days. Puneet David MD
[2017-09-24 16:46] VITALS: TEMP 98.1; O2SAT 98
[2017-09-25] MEDS: Meropenem IV 1 gm in NS 50 ML IVPB SCH (05:21)
[2017-09-25] MEDS: Pantoprazole 40 mg EC Tab PO SCH (05:21)
[2017-09-25 06:02] LABS: HEMATOCRIT 32.3 % (36.0-48.0); MEAN CELL VOLUME 88.3 fl (80.0-105.0); MEAN CORPUSCULAR HEMOGLOBIN 28.7 pg (25.0-35.0); MEAN CORPUSCULAR HGB CONC 32.5 g/dl (31.0-37.0); MEAN PLATELET VOLUME 9.8 fl (7.0-11.0); RED CELL DISTRIBUTION WIDTH 14.1 % (11.5-14.5)
[2017-09-25 06:52] LABS: BLOOD UREA NITROGEN 26 mg/dL (7-21); CALCIUM 9.5 mg/dL (8.4-10.5); CARBON DIOXIDE 27 mmol/L (21-33); CHLORIDE 105 mmol/L (98-107); GFR AFRICAN-AMERICAN > 60; GLUCOSE,RANDOM 95 mg/dL (70-110); POTASSIUM 4.4 mmol/L (3.6-5.0); SODIUM 141 mmol/L (132-148)
[2017-09-25] MEDS: diltiaZEM 240 mg/24 Hours CD Cap PO SCH (10:10)
[2017-09-25 10:14] VITALS: BP 134/56; PULSE 56
[2017-09-25] MEDS: Tobramycin 0.3% OPHT SOLN OU SCH ×3 (10:14→13:36)
--- NOTE | 2017-09-25 17:45 | CP.PCM.DIS ---
<Juan Forrest - Last Filed: 09/25/17 17:30> Provider - Provider Date of Admission: 09/18/17 22:43 Attending physician: Jimmy White MD Primary care physician: Karly Pacheco MD Consults: ID: Joann Uro: Rosa Elena Time Spent in preparation of Discharge (in minutes): 45 Hospital Course - Lab Results Lab Results: Micro Results 09/20/17 08:06 Urine,Hidalgo Urine Culture - Final No Growth (<1,000 CFU/ML) Most Recent Lab Values WBC 8.0 10^3/ul (4.5-11.0) 09/25/17 05:55 RBC 3.66 10^6/uL (3.5-6.1) 09/25/17 05:55 Hgb 10.5 g/dL (12.0-16.0) L 09/25/17 05:55 Hct 32.3 % (36.0-48.0) L 09/25/17 05:55 MCV 88.3 fl (80.0-105.0) 09/25/17 05:55 MCH 28.7 pg (25.0-35.0) 09/25/17 05:55 MCHC 32.5 g/dl (31.0-37.0) 09/25/17 05:55 RDW 14.1 % (11.5-14.5) 09/25/17 05:55 Plt Count 285 10^3/uL (120.0-450.0) 09/25/17 05:55 MPV 9.8 fl (7.0-11.0) 09/25/17 05:55 Gran % 70.1 % (50.0-68.0) H 09/19/17 00:35 Lymph % (Auto) 20.9 % (22.0-35.0) L 09/19/17 00:35 [place] % (Auto) 6.7 % (1.0-6.0) H 09/19/17 00:35 Eos % (Auto) 1.9 % (1.5-5.0) 09/19/17 00:35 Baso % (Auto) 0.4 % (0.0-3.0) 09/19/17 00:35 Gran # 6.99 (1.4-6.5) H 09/19/17 00:35 Lymph # 2.1 (1.2-3.4) 09/19/17 00:35 [place] # 0.7 (0.1-0.6) H 09/19/17 00:35 Eos # 0.2 (0.0-0.7) 09/19/17 00:35 Baso # 0.04 K/mm3 (0.0-2.0) 09/19/17 00:35 PT 12.2 SECONDS (9.4-12.5) 09/19/17 00:35 INR 1.12 (0.93-1.08) H 09/19/17 00:35 Sodium 141 mmol/L (132-148) 09/25/17 05:55 Potassium 4.4 mmol/L (3.6-5.0) 09/25/17 05:55 Chloride 105 mmol/L (98-107) 09/25/17 05:55 Carbon Dioxide 27 mmol/L (21-33) 09/25/17 05:55 Anion Gap 13 (10-20) 09/25/17 05:55 BUN 26 mg/dL (7-21) H 09/25/17 05:55 Creatinine 1.0 mg/dl (0.7-1.2) 09/25/17 05:55 Est GFR ( Amer) > 60 09/25/17 05:55 Est GFR (Non-Af Amer) 53 09/25/17 05:55 Random Glucose 95 mg/dL (70-110) 09/25/17 05:55 Calcium 9.5 mg/dL (8.4-10.5) 09/25/17 05:55 Total Bilirubin 0.3 mg/dL (0.2-1.3) 09/19/17 00:35 AST 20 U/L (14-36) 09/19/17 00:35 ALT 30 U/L (7-56) 09/19/17 00:35 Alkaline Phosphatase 93 U/L (38-126) 09/19/17 00:35 Total Protein 6.4 g/dL (5.8-8.3) 09/19/17 00:35 Albumin 3.3 g/dL (3.0-4.8) 09/19/17 00:35 Globulin 3.1 gm/dL 09/19/17 00:35 Albumin/Globulin Ratio 1.1 (1.1-1.8) 09/19/17 00:35 Urine Color Yellow (YELLOW) 09/20/17 08:06 Urine Appearance Clear (CLEAR) 09/20/17 08:06 Urine pH 6.0 (4.7-8.0) 09/20/17 08:06 Ur Specific Bowen 1.020 (1.005-1.035) 09/20/17 08:06 Urine Protein 30 mg/dL (<30 mg/dL) H 09/20/17 08:06 Urine Glucose (UA) Negative mg/dL (NEGATIVE) 09/20/17 08:06 Urine Ketones Negative mg/dL (NEGATIVE) 09/20/17 08:06 Urine Blood Trace-intact (NEGATIVE) H 09/20/17 08:06 Urine Nitrate Negative (NEGATIVE) 09/20/17 08:06 Urine Bilirubin Negative (NEGATIVE) 09/20/17 08:06 Urine Urobilinogen 0.2 E.U./dL (<1 E.U./dL) 09/20/17 08:06 Ur Leukocyte Esterase Small Joaquin/uL (NEGATIVE) H 09/20/17 08:06 Urine RBC 0 - 2 /hpf (0-2) 09/20/17 08:06 Urine WBC 10 - 15 /hpf (0-6) 09/20/17 08:06 Ur Epithelial Cells 1 - 3 /hpf (0-5) 09/20/17 08:06 - Hospital Course Hospital Course: 82 year old female with PMH significant for HTN, dyslipidemia, obesity, uterine cancer S/P hysterectomy, osteoarthritis, GERD, depression, E. 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 She was found to have significant urinary retention with grossly distended bladder, hydonephrosis, and hydroureter, in addition to a UTI. Urine cultures grew enterobacter cloacae. She was started on IV antibiotics by the ID and continued indwelling catheter vs intermittent self catheterization for chronic urinary retention. Pt admitted to TCU for continued IV abx and continued physical therapy. Significant events during TCU, included code star due to fall, head CT and x- rays were negative. Pt completed a 10 day course of Merrem and was clear to DC from ID standpoint. ID stated that patient did not need PO abx on discharge. Urology followed patient and recommended patient be discharged with indwelling catheter and should follow up outpatient where they will educate her on how to use intermittant hidalgo catheter. Today, patient was seen and examined at bedside. Pt denies any acute overnight events. Patient is OOB and walking with walker. PT cleared patient for DC. As patient is medically stable, she will be discharged. Patient has appointment with Dr. Cuba on Oct 08. Patient was also advised to follow up with her PMD within 1 week and to resume her medications as prescribed. The patient acknowledged and agreed. Discharge Exam - Head Exam Head Exam: NORMAL INSPECTION - Eye Exam Eye Exam: Normal appearance - Neck Exam Neck exam: Normal Inspection - Respiratory Exam Respiratory Exam: Clear to PA & Lateral. absent: Accessory Muscle Use, Rales, Rhonchi, Wheezes, Respiratory Distress - Cardiovascular Exam Cardiovascular Exam: RRR, +S1, +S2. absent: Diastolic murmur, Gallop, Rubs, Systolic Murmur - GI/Abdominal Exam GI & Abdominal Exam: Normal Bowel Sounds, Soft. absent: Distended, Guarding, Rebound, Tenderness - Extremities Exam Extremities exam: normal inspection - Neurological Exam Neurological exam: Alert, Oriented x3 - Psychiatric Exam Psychiatric exam: Normal Affect, Normal Mood - Skin Skin Exam: Dry, Intact, Normal Color, Warm Discharge Plan - Follow Up Plan Condition: GOOD Disposition: HOME/ ROUTINE Instructions: Acute Kidney Injury (DC), Urinary Tract Infection in Women (DC), Hidalgo Catheter Placement and Care (DC), Fall Prevention for Older Adults (GEN), Dysuria (GEN) Additional Instructions: 1. Follow up with PMD within 1 week 2. Follow up with Dr. Cuba as scheduled 3. Discharge with hidalgo catheter 4. Continue medications as prescribed 5. Return to ED if symptoms worsen Referrals: Puneet David MD [Staff Provider] - Oscar Cuba MD [Staff Provider] - Karly Barron MD [Primary Care Provider] - <Eder Reyes - Last Filed: 09/26/17 13:19> Provider - Provider Date of Admission: 09/18/17 22:43 Attending physician: Jimmy White MD Primary care physician: Karly Pacheco MD Hospital Course - Lab Results Lab Results: Micro Results 09/20/17 08:06 Urine,[place] Urine Culture - Final No Growth (<1,000 CFU/ML) Most Recent Lab Values WBC 8.0 10^3/ul (4.5-11.0) 09/25/17 05:55 RBC 3.66 10^6/uL (3.5-6.1) 09/25/17 05:55 Hgb 10.5 g/dL (12.0-16.0) L 09/25/17 05:55 Hct 32.3 % (36.0-48.0) L 09/25/17 05:55 MCV 88.3 fl (80.0-105.0) 09/25/17 05:55 MCH 28.7 pg (25.0-35.0) 09/25/17 05:55 MCHC 32.5 g/dl (31.0-37.0) 09/25/17 05:55 RDW 14.1 % (11.5-14.5) 09/25/17 05:55 Plt Count 285 10^3/uL (120.0-450.0) 09/25/17 05:55 MPV 9.8 fl (7.0-11.0) 09/25/17 05:55 Gran % 70.1 % (50.0-68.0) H 09/19/17 00:35 Lymph % (Auto) 20.9 % (22.0-35.0) L 09/19/17 00:35 [place] % (Auto) 6.7 % (1.0-6.0) H 09/19/17 00:35 Eos % (Auto) 1.9 % (1.5-5.0) 09/19/17 00:35 Baso % (Auto) 0.4 % (0.0-3.0) 09/19/17 00:35 Gran # 6.99 (1.4-6.5) H 09/19/17 00:35 Lymph # 2.1 (1.2-3.4) 09/19/17 00:35 [place] # 0.7 (0.1-0.6) H 09/19/17 00:35 Eos # 0.2 (0.0-0.7) 09/19/17 00:35 Baso # 0.04 K/mm3 (0.0-2.0) 09/19/17 00:35 PT 12.2 SECONDS (9.4-12.5) 09/19/17 00:35 INR 1.12 (0.93-1.08) H 09/19/17 00:35 Sodium 141 mmol/L (132-148) 09/25/17 05:55 Potassium 4.4 mmol/L (3.6-5.0) 09/25/17 05:55 Chloride 105 mmol/L (98-107) 09/25/17 05:55 Carbon Dioxide 27 mmol/L (21-33) 09/25/17 05:55 Anion Gap 13 (10-20) 09/25/17 05:55 BUN 26 mg/dL (7-21) H 09/25/17 05:55 Creatinine 1.0 mg/dl (0.7-1.2) 09/25/17 05:55 Est GFR ( Amer) > 60 09/25/17 05:55 Est GFR (Non-Af Amer) 53 09/25/17 05:55 Random Glucose 95 mg/dL (70-110) 09/25/17 05:55 Calcium 9.5 mg/dL (8.4-10.5) 09/25/17 05:55 Total Bilirubin 0.3 mg/dL (0.2-1.3) 09/19/17 00:35 AST 20 U/L (14-36) 09/19/17 00:35 ALT 30 U/L (7-56) 09/19/17 00:35 Alkaline Phosphatase 93 U/L (38-126) 09/19/17 00:35 Total Protein 6.4 g/dL (5.8-8.3) 09/19/17 00:35 Albumin 3.3 g/dL (3.0-4.8) 09/19/17 00:35 Globulin 3.1 gm/dL 09/19/17 00:35 Albumin/Globulin Ratio 1.1 (1.1-1.8) 09/19/17 00:35 Urine Color Yellow (YELLOW) 09/20/17 08:06 Urine Appearance Clear (CLEAR) 09/20/17 08:06 Urine pH 6.0 (4.7-8.0) 09/20/17 08:06 Ur Specific Bowen 1.020 (1.005-1.035) 09/20/17 08:06 Urine Protein 30 mg/dL (<30 mg/dL) H 09/20/17 08:06 Urine Glucose (UA) Negative mg/dL (NEGATIVE) 09/20/17 08:06 Urine Ketones Negative mg/dL (NEGATIVE) 09/20/17 08:06 Urine Blood Trace-intact (NEGATIVE) H 09/20/17 08:06 Urine Nitrate Negative (NEGATIVE) 09/20/17 08:06 Urine Bilirubin Negative (NEGATIVE) 09/20/17 08:06 Urine Urobilinogen 0.2 E.U./dL (<1 E.U./dL) 09/20/17 08:06 Ur Leukocyte Esterase Small Joaquin/uL (NEGATIVE) H 09/20/17 08:06 Urine RBC 0 - 2 /hpf (0-2) 09/20/17 08:06 Urine WBC 10 - 15 /hpf (0-6) 09/20/17 08:06 Ur Epithelial Cells 1 - 3 /hpf (0-5) 09/20/17 08:06 Attending/Attestation - Attestation I have personally seen and examined this patient.: Yes I have fully participated in the care of the patient.: Yes I have reviewed all pertinent clinical information, including history, physical exam and plan: Yes Notes (Text): 82 year old female with PMH significant for HTN, dyslipidemia, obesity, uterine cancer S/P hysterectomy, osteoarthritis, GERD, depression, E. 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 She was found to have significant urinary retention with grossly distended bladder, hydonephrosis, and hydroureter, in addition to a UTI. Urine cultures grew enterobacter cloacae. She was started on IV antibiotics by the ID and continued indwelling catheter vs intermittent self catheterization for chronic urinary retention. Pt admitted to TCU for continued IV abx and continued physical therapy.
--- NOTE | 2017-09-25 21:20 | PN ---
DATE: 09/25/2017 SUBJECTIVE: Patient is seen early this morning, in room 316. Patient has no fevers and no chills, no nausea or vomiting. PHYSICAL EXAMINATION: VITAL SIGNS: Temperature is 98, blood pressure is 120/70, respiratory rate of 16. HEENT: Unremarkable. NECK: Supple. LUNGS: Decreased breath sounds. HEART: Normal S1, S2. ABDOMEN: Soft and nontender. LABORATORY DATA: Reveals the patient has a white count of 8.0, hemoglobin of 10, platelets of 285. Coagulation is noted. Chemistries reveal a BUN of 26, creatinine of 1.0. Urinalysis is noted. Microbiology is reviewed. Urine culture is negative. Repeat urine culture. 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 Multidrug-resistant organism, day number 10. Patient's repeat urine culture is negative. Patient has responded well, doing much better. Puneet David MD
--- NOTE | 2017-09-26 19:49 | PN ---
DATE: 09/23/2017 SUBJECTIVE: The patient seen early this morning in 316, comfortable. No fevers. No chills. She is awake and had an uneventful night. OBJECTIVE: VITAL SIGNS: On exam, temperature is 98, blood pressure is 117/50, respiratory rate is 20, heart rate of 55. HEENT: Unremarkable. NECK: Supple. LUNGS: Have decreased breath sounds. HEART: Normal S1, S2. ABDOMEN: Soft, nontender. LABORATORY EXAMINATION: Reveals a white count of 8.1, hemoglobin of 10, platelets of 285. Chemistries reveal a BUN of 26, creatinine of 1.1. Microbiology is noted. Urine cultures negative. ASSESSMENT AND PLAN: This is an 82-year-old female with a history of atrial fibrillation, pseudogout, hypertension, depression, osteoarthritis, uterine cancer, obesity, history of vancomycin-resistant Enterococcus urinary tract infection, Klebsiella, E. coli urinary tract infection, admitted in the acute care with sepsis with Enterobacter in the urine as a source, today is day #9 of meropenem, would complete 10 to 14 days, the patient is tolerating antibiotics well. Puneet David MD
== END 2017-09-25 16:10 | disposition home or self-care (01) | DRG 872 ==
LOC: TRCU 22:43
PROVIDERS: ADMIT Internal Medicine; ATTEND Internal Medicine
PROC: F07Z9FZ Gait Training/Functional Ambulation Treatment using Assistive, Adaptive, Supportive or Protective Equipment (ICD-10-PCS; principal; 2017-09-19)
PROC: F08Z4FZ Home Management Treatment using Assistive, Adaptive, Supportive or Protective Equipment (ICD-10-PCS; 2017-09-19)
DX: A41.51 Sepsis due to Escherichia coli [E. coli] (principal); N39.0 Urinary tract infection, site not specified; Z79.2 Long term (current) use of antibiotics; I48.91 Unspecified atrial fibrillation; N13.30 Unspecified hydronephrosis; E78.5 Hyperlipidemia, unspecified; F32.9 Major depressive disorder, single episode, unspecified; I10 Essential (primary) hypertension; K21.9 Gastro-esophageal reflux disease without esophagitis; M19.90 Unspecified osteoarthritis, unspecified site; Z16.24 Resistance to multiple antibiotics; E66.9 Obesity, unspecified; Z68.31 Body mass index [BMI] 31.0-31.9, adult; Z91.19 Patient's noncompliance with other medical treatment and regimen; Z85.42 Personal history of malignant neoplasm of other parts of uterus; Z90.710 Acquired absence of both cervix and uterus

== ENCOUNTER 2018-03-03 09:39 | Emergency (ER) | payer MEDICARE, OTHER ==
[2018-03-03 09:39] VITALS: PULSE 104; BMI 29.2
[2018-03-03 09:59] VITALS: TEMP 98.6
--- NOTE | 2018-03-03 10:26 | ED PDOC ---
Arrival/HPI - General Chief Complaint: Female Genitourinary Time Seen by Provider: 03/03/18 10:11 Historian: Patient, Family (daughter) - History of Present Illness Narrative History of Present Illness (Text): 03/03/18 10:26 Interpreted by patient's daughter. Ms. Young is a 82 year old female with a past medical history significant for HTN, dyslipidemia, uterine cancer, E. 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 Patient denies fever, flank pain, back pain, hematuria, sob, cp, dizziness, recent travel, or sick contact. Time/Duration: Other (see hpi) Context: Home Past Medical History - Provider Review Nursing Documentation Reviewed: Yes - Past History Past History: No Previous - Infectious Disease Hx of Infectious Diseases: None - Past Medical History Past Medical History: No Previous - Cardiac Hx Cardiac Disorders: Yes Hx Hypertension: Yes - Pulmonary Hx Respiratory Disorders: Yes Hx Pneumonia: Yes - Neurological Hx Dizziness: No - HEENT Hx HEENT Disorder: Yes (EYE INFECTION) Hx Cataracts: Yes (RT EYE CATARACT EXTRACTION) - Renal Hx Renal Disorder: No - Endocrine/Metabolic Hx Endocrine Disorders: No - Hematological/Oncological Hx Blood Disorders: Yes Hx Anemia: Yes (IRON DEFICIENCY) - Integumentary Hx Dermatological Disorder: No - Musculoskeletal/Rheumatological Hx Arthritis: Yes - Gastrointestinal Hx Gastrointestinal Disorders: Yes (GASTROENTERITIS) - Genitourinary/Gynecological Hx Genitourinary Disorders: Yes (urgency/frequency/HESITANCY-ATONIC BLADDER) Hx Urinary Tract Infection: Yes - Psychiatric Hx Psychophysiologic Disorder: No Hx Substance Use: No - Past Surgical History Past Surgical History: No Previous - Surgical History Hx Cholecystectomy: Yes Other/Comment: rt eye cataract Sep 1103/2017 - Anesthesia Hx Anesthesia: Yes Hx Anesthesia Reactions: No Hx Malignant Hyperthermia: No - Suicidal Assessment Feels Threatened In Home Enviroment: No Family/Social History - Physician Review Nursing Documentation Reviewed: Yes Family/Social History: Other (noncontributory) Smoking Status: Never Smoked Hx Alcohol Use: No Hx Substance Use: No Allergies/Home Meds Allergies/Adverse Reactions: Allergies No Known Allergies Allergy (Verified 03/03/18 09:49) Home Medications: Home Meds Medication Instructions Recorded Confirmed Atorvastatin [Lipitor] 10 mg PO 1700 01/17/17 03/03/18 Aspirin [Ecotrin] 81 mg PO DAILY 03/22/17 03/03/18 Metoprolol Tartrate [Lopressor] 25 mg PO BID 04/15/17 03/03/18 Esomeprazole Magnesium [Nexium] 40 mg PO DAILY 09/14/17 03/03/18 Lisinopril [Zestril] 15 mg PO BID 09/14/17 03/03/18 Meloxicam [Mobic] 15 mg PO DAILY 09/14/17 03/03/18 Review of Systems - Review of Systems Constitutional: Normal. absent: Fatigue, Weight Change, Fevers Eyes: Normal ENT: Normal Respiratory: Normal. absent: SOB, Cough Cardiovascular: Normal. absent: Chest Pain, Palpitations Gastrointestinal: Normal. absent: Abdominal Pain, Nausea, Vomiting Genitourinary Female: Dysuria, Frequency. absent: Hematuria, Urine Output Changes, Vaginal Bleeding, Vaginal Discharge Musculoskeletal: Normal. absent: Back Pain, Neck Pain, Myalgias Skin: Normal. absent: Rash Neurological: Normal Endocrine: Normal Hemo/Lymphatic: Normal Psychiatric: Normal Physical Exam Vital Signs Temp Pulse Resp BP Pulse Ox 03/03/18 09:53 98.6 F 48 L 16 149/73 96 Temperature: Afebrile Blood Pressure: Normal Pulse: Regular Respiratory Rate: Normal Appearance: Positive for: Well-Appearing, Non-Toxic, Comfortable Pain Distress: None Mental Status: Positive for: Alert and Oriented X 3 - Systems Exam Head: Present: Atraumatic, Normocephalic Pupils: Present: PERRL Extroacular Muscles: Present: EOMI Conjunctiva: Present: Normal Mouth: Present: Moist Mucous Membranes Neck: Present: Normal Range of Motion Respiratory/Chest: Present: Clear to Auscultation, Good Air Exchange. No: Respiratory Distress, Accessory Muscle Use Cardiovascular: Present: Regular Rate and Rhythm, Normal S1, S2. No: Murmurs Abdomen: No: Tenderness, Distention, Peritoneal Signs Back: Present: Normal Inspection Upper Extremity: Present: Normal Inspection. No: Cyanosis, Edema Lower Extremity: Present: Normal Inspection. No: Edema Neurological: Present: GCS=15, CN II-XII Intact, Speech Normal, Motor Func Grossly Intact, Normal Sensory Function, Normal Cerebellar Funct, Gait Normal, Memory Normal Skin: Present: Warm, Dry, Normal Color. No: Rashes Psychiatric: Present: Alert, Oriented x 3, Normal Insight, Normal Concentration Medical Decision Making ED Course and Treatment: 03/03/18 11:54 I reviewed last urine culture report on file from September 2017, which demonstrates multiple resistance. However, sensitivity to Bactrim. I reviewed this information with patient and daughter. Patient has an appointment to See Dr. Cuba in 2 days. She will f/u urine culture with Dr. Cuba. Patient was recommended to return to ED if symptoms worsen, fever, or flank pain. 03/03/18 11:57 Urine specimen was collected from clean catch. Patient did not self catheterize Re-evaluation Time: 11:57 Reassessment Condition: Re-examined, Improved - Lab Interpretations Lab Results: Lab Results 03/03/18 10:34: Urine Color Light yellow, Urine Appearance Cloudy, Urine pH 6.0 , Ur Specific Andrew 1.010, Urine Protein 30 H, Urine Glucose (UA) Negative, Urine Ketones Negative, Urine Blood Moderate H, Urine Nitrate Negative, Urine Bilirubin Negative, Urine Urobilinogen 0.2, Ur Leukocyte Esterase Large H, Urine RBC 2 - 5, Urine WBC Tntc, Ur Epithelial Cells 0 - 2, Urine Bacteria Small I have reviewed the lab results: Yes Interpretation: Abnormal lab values - Medication Orders Current Medication Orders: Discontinued Medications Phenazopyridine HCl (Pyridium) 200 mg PO STAT STA Stop: 03/03/18 11:50 Trimethoprim/Sulfamethoxazole (Bactrim Ds Tab) 1 tab PO STAT STA PRN Reason: Protocol Stop: 03/03/18 11:43 Disposition/Present on Arrival - Present on Arrival Any Indicators Present on Arrival: No History of DVT/PE: No History of Uncontrolled Diabetes: No Urinary Catheter: No History of Decub. Ulcer: No History Surgical Site Infection Following: None - Disposition Have Diagnosis and Disposition been Completed?: Yes Diagnosis: Acute cystitis Disposition: HOME/ ROUTINE Disposition Time: 11:58 Patient Plan: Discharge Condition: GOOD Discharge Instructions (ExitCare): Acute Cystitis (DC) Additional Instructions: Call private doctor for follow up visit in 1-2 days. Take medication as instructed with food. Make sure to review urine culture with Dr. Cuba i 2 days. Return to emergency if you develop fever, flank pain, or worsening of your symptoms. Prescriptions: Phenazopyridine HCl [Pyridium] 200 mg PO TID #6 tablet Sulfamethoxazole/Trimethoprim [Bactrim DS 800 mg-160 mg] 1 tab PO BID #14 tab Referrals: Oscar Cuba MD [Staff Provider] - Follow up with primary Forms: [employer] ([place])
[2018-03-03 11:02] LABS: URINE BILIRUBIN NEGATIVE (NEGATIVE); URINE BLOOD MODERATE (NEGATIVE); URINE GLUCOSE (UA) NEGATIVE (NEGATIVE); URINE LEUKOCYTE ESTERASE LARGE Leu/uL (NEGATIVE); URINE PROTEIN 30 mg/dL (<30 mg/dL); URINE UROBILINOGEN 0.2 E.U./dL (<1 E.U./dL)
[2018-03-03 11:05] LABS: URINE COLOR LIGHT YELLOW (YELLOW)
[2018-03-03 11:06] LABS: URINE APPEARANCE CLOUDY (CLEAR)
[2018-03-03 11:42] LABS: URINE BACTERIA SMALL (NEG); URINE EPITHELIAL CELLS 0 - 2 /hpf (0-5); URINE WBC TNTC /hpf (0-6)
[2018-03-03] MEDS ORDERED: Tmp-Smz 800 mg-160 mg DS Tab PO STA (11:42)
[2018-03-03 12:55] VITALS: BP 147/56; PULSE 52; RESP 18; O2SAT 97
== END 2018-03-03 12:19 | disposition home or self-care (01) ==
LOC: ED 09:39
DX: N30.00 Acute cystitis without hematuria (principal); E78.5 Hyperlipidemia, unspecified; I10 Essential (primary) hypertension

== ENCOUNTER 2018-03-20 07:08 | Emergency (ER) | payer MEDICARE, OTHER ==
[2018-03-20 07:09] VITALS: PULSE 104; BMI 29.2
[2018-03-20 07:24] VITALS: TEMP 98.2; O2SAT 96
--- NOTE | 2018-03-20 07:43 | ED PDOC ---
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 Patient states she usually sees Dr. Bains for drainage of the cyst on her right shoulder, which was last drained 5 weeks ago. However, the cyst independently opened and drained fluid on Saturday leading to swelling and redness of her right arm. Symptoms have been unchanged since then and requests medical attention. Patient additionally informs headache since 2 days. Patient denies any fever, chills, nausea, vomiting, diarrhea, abdominal pain, chest pain , shortness of breath or any other complaints. PMD: Time/Duration: < week Symptom Onset: Gradual Symptom Course: Unchanged Activities at Onset: Light Context: Home Past Medical History - Provider Review Nursing Documentation Reviewed: Yes - Past History Past History: No Previous - Infectious Disease Hx of Infectious Diseases: None - Past Medical History Past Medical History: No Previous - Cardiac Hx Cardiac Disorders: Yes Hx Hypertension: Yes - Pulmonary Hx Respiratory Disorders: Yes Hx Pneumonia: Yes - Neurological Hx Dizziness: No - HEENT Hx HEENT Disorder: Yes (EYE INFECTION) Hx Cataracts: Yes (RT EYE CATARACT EXTRACTION) - Renal Hx Renal Disorder: No - Endocrine/Metabolic Hx Endocrine Disorders: No - Hematological/Oncological Hx Blood Disorders: Yes Hx Anemia: Yes (IRON DEFICIENCY) - Integumentary Hx Dermatological Disorder: No - Musculoskeletal/Rheumatological Hx Arthritis: Yes - Gastrointestinal Hx Gastrointestinal Disorders: Yes (GASTROENTERITIS) - Genitourinary/Gynecological Hx Genitourinary Disorders: Yes (urgency/frequency/HESITANCY-ATONIC BLADDER) Hx Urinary Tract Infection: Yes - Psychiatric Hx Psychophysiologic Disorder: No Hx Substance Use: No - Past Surgical History Past Surgical History: No Previous - Surgical History Hx Cholecystectomy: Yes Other/Comment: rt eye cataract Sep 1103/2017 - Anesthesia Hx Anesthesia: Yes Hx Anesthesia Reactions: No Hx Malignant Hyperthermia: No - Suicidal Assessment Feels Threatened In Home Enviroment: No Family/Social History - Physician Review Nursing Documentation Reviewed: Yes Family/Social History: No Known Family HX Smoking Status: Never Smoked Hx Alcohol Use: No Hx Substance Use: No Allergies/Home Meds Allergies/Adverse Reactions: Allergies No Known Allergies Allergy (Verified 03/20/18 07:20) Home Medications: Home Meds Medication Instructions Recorded Confirmed Atorvastatin [Lipitor] 10 mg PO 1700 01/17/17 03/20/18 Aspirin [Ecotrin] 81 mg PO DAILY 03/22/17 03/20/18 Metoprolol Tartrate [Lopressor] 25 mg PO BID 04/15/17 03/20/18 Lisinopril [Zestril] 15 mg PO BID 09/14/17 03/20/18 Esomeprazole Magnesium [Nexium] 40 mg PO DAILY 03/20/18 03/20/18 Furosemide [Lasix] 20 mg PO DAILY 03/20/18 03/20/18 Lisinopril [Zestril] 5 mg PO BID 03/20/18 03/20/18 hydrALAZINE [hydralazine 10 mg PO BID 03/20/18 03/20/18 Hydrochloride] Review of Systems - Physician Review All systems were reviewed & negative as marked: Yes - Review of Systems Constitutional: Normal. absent: Fevers Eyes: Normal ENT: Normal Respiratory: Normal. absent: SOB Cardiovascular: Normal. absent: Chest Pain Gastrointestinal: Normal. absent: Abdominal Pain, Diarrhea, Nausea, Vomiting Genitourinary Female: Normal Musculoskeletal: Normal Skin: Other (Redness and swelling of right arm) Neurological: Headache Endocrine: Normal Hemo/Lymphatic: Normal Psychiatric: Normal Physical Exam Vital Signs Reviewed: Yes Vital Signs Temp Pulse Resp BP Pulse Ox 03/20/18 07:21 98.2 F 57 L 18 144/58 L 96 Temperature: Afebrile Blood Pressure: Normal Pulse: Regular Respiratory Rate: Normal Appearance: Positive for: Well-Appearing, Non-Toxic, Comfortable Pain Distress: None Mental Status: Positive for: Alert and Oriented X 3 - Systems Exam Head: Present: Atraumatic, Normocephalic Pupils: Present: PERRL Extroacular Muscles: Present: EOMI Conjunctiva: Present: Normal Respiratory/Chest: Present: Clear to Auscultation, Good Air Exchange. No: Respiratory Distress, Accessory Muscle Use Cardiovascular: Present: Regular Rate and Rhythm, Normal S1, S2. No: Murmurs Abdomen: No: Tenderness, Distention, Peritoneal Signs Back: Present: Normal Inspection Upper Extremity: Present: Swelling (Redness and swelling on anterior aspect of right arm.). No: Cyanosis, Edema Lower Extremity: Present: Normal Inspection. No: Edema Neurological: Present: GCS=15, CN II-XII Intact, Speech Normal Skin: Present: Warm, Dry, Normal Color. No: Rashes Psychiatric: Present: Alert, Oriented x 3, Normal Insight, Normal Concentration Medical Decision Making ED Course and Treatment: 03/20/18 07:33 Impression: 82 year old female presents to the Emergency department for right arm swelling and redness. Plan: -- VBG -- CT of Head -- Labs -- Chest X-ray -- Blood Culture -- Urine Culture -- Urinalysis -- US of Right upper extremity -- Reassess and disposition Prior Visits: Notes and results from previous visits were reviewed. Progress Notes: 03/20/18 09:49 CT of head reviewed by radiologist, shows: FINDINGS: HEMORRHAGE: No intracranial hemorrhage. BRAIN: No mass effect or edema. Severe chronic microvascular changes in the periventricular white matter and left basal ganglia VENTRICLES: Unremarkable. No hydrocephalus. CALVARIUM: Unremarkable. NASAL SINUSES: Unremarkable as visualized. No significant inflammatory changes. MASTOID AIR CELLS: Unremarkable as visualized. No inflammatory changes. OTHER FINDINGS: None. IMPRESSION: No acute intracranial findings. 03/20/18 10:30 Chest X-ray reviewed by radiologist, shows: FINDINGS: LUNGS: No active pulmonary disease. PLEURA: No significant pleural effusion identified, no pneumothorax apparent. CARDIOVASCULAR: Normal. OSSEOUS STRUCTURES: No significant abnormalities. VISUALIZED UPPER ABDOMEN: Normal. OTHER FINDINGS: None. IMPRESSION: No active disease. - Lab Interpretations Lab Results: 03/20/18 07:50 03/20/18 07:50 Lab Results 03/20/18 09:45: Urine Color Yellow, Urine Appearance Turbid, Urine pH 6.0, Ur Specific [place] 1.010, Urine Protein 30 H, Urine Glucose (UA) Negative, Urine Ketones Negative, Urine Blood Small H, Urine Nitrate Negative, Urine Bilirubin Negative, Urine Urobilinogen 0.2, Ur Leukocyte Esterase Large H, Urine RBC 1 - 3 , Urine WBC Tntc, Ur Epithelial Cells 6 - 8, Urine Bacteria Many 03/20/18 07:50: Sodium 137, Chloride 104, Potassium 4.6, Carbon Dioxide 22, Anion Gap 16, BUN 32 H, Creatinine 1.2, Est GFR ( Amer) 52, Est GFR (Non- Af Amer) 43, Random Glucose 111 H, Calcium 9.0, Total Bilirubin 0.3, AST 23, ALT 31, Alkaline Phosphatase 90, Lactate Dehydrogenase 439, Total Creatine Kinase 105, Troponin I < 0.01, Total Protein 6.5, Albumin 3.7, Globulin 2.7, Albumin/Globulin Ratio 1.4 03/20/18 07:50: pO2 128 H, VBG pH 7.39, VBG pCO2 37.0 L, VBG HCO3 22.4, VBG Total CO2 23.5, VBG O2 Sat (Calc) 94.6 H, VBG Base Excess -2.2 L, VBG Potassium 4.6, Sodium 133.0, Chloride 106.0, Glucose 113 H, Lactate 1.2, FiO2 21.0, Venous Blood Potassium 4.6 03/20/18 07:50: PT 10.9, INR 0.95 03/20/18 07:50: WBC 8.4, RBC 3.78, Hgb 10.4 L, Hct 32.1 L, MCV 84.9 D, MCH 27.5 , MCHC 32.4, RDW 14.3, Plt Count 224, MPV 9.3, Gran % 77.1 H, Lymph % (Auto) 15.8 L, [place] % (Auto) 5.3, Eos % (Auto) 1.4 L, Baso % (Auto) 0.4, Gran # 6.45, Lymph # (Auto) 1.3, [place] # (Auto) 0.4, Eos # (Auto) 0.1, Baso # (Auto) 0.03 - RAD Interpretation Radiology Orders: 03/20/18 07:33 HEAD W/O CONTRAST [CT] Stat CHEST PORTABLE [RAD] Stat DUPLEX UPPER EXTRM VEIN RIGHT [US] Stat Technology Services Manager: Radiologist - Medication Orders Current Medication Orders: Ceftriaxone Sodium (Rocephin 2 Gm Ivpb) 2 gm in 100 mls @ 100 mls/hr IVPB STAT STA PRN Reason: Protocol Stop: 03/20/18 11:40 - Scribe Statement The provider has reviewed the documentation as recorded by the Scribe Tasfia Gay. All medical record entries made by the Gisellibe were at my direction and personally dictated by me. I have reviewed the chart and agree that the record accurately reflects my personal performance of the history, physical exam, medical decision making, and the department course for this patient. I have also personally directed, reviewed, and agree with the discharge instructions and disposition. Disposition/Present on Arrival - Present on Arrival Any Indicators Present on Arrival: No History of DVT/PE: No History of Uncontrolled Diabetes: No Urinary Catheter: No History of Decub. Ulcer: No History Surgical Site Infection Following: None - Disposition Have Diagnosis and Disposition been Completed?: Yes Diagnosis: UTI (urinary tract infection), Hematoma Disposition: HOME/ ROUTINE Disposition Time: 10:57 Patient Plan: Discharge Patient Problems: Current Active Problems Problem Status Onset UTI (urinary tract infection) Acute Hematoma Acute Condition: GOOD Discharge Instructions (ExitCare): Urinary Tract Infection, Adult (DC) Additional Instructions: Follow up with Dr. Hernández. Take he keflex four times a day and drink plenty of water for the UTI. Best- Dr. Isaac Xavier Prescriptions: Cephalexin [Keflex] 500 mg PO QID #40 capsule Forms: Dr. Z Connect (Ukrainian)
[2018-03-20 08:15] LABS: VENOUS BLOOD GAS BASE EXCESS -2.2 mmol/L (0.0-2.0); VENOUS BLOOD GAS PO2 128 mm/Hg (30-55); VENOUS BLOOD PH 7.39 (7.32-7.43)
[2018-03-20 08:16] LABS: BASO # 0.03 K/mm3 (0.0-2.0); BASO % 0.4 % (0.0-3.0); EOS # 0.1 (0.0-0.7); EOS % 1.4 % (1.5-5.0); GRAN # 6.45 (1.4-6.5); GRAN % 77.1 % (50.0-68.0); HEMOGLOBIN 10.4 g/dL (12.0-16.0); LYMPH # 1.3 (1.2-3.4); LYMPH % 15.8 % (22.0-35.0); MEAN CELL VOLUME 84.9 fl (80.0-105.0); MEAN CORPUSCULAR HEMOGLOBIN 27.5 pg (25.0-35.0); MEAN CORPUSCULAR HGB CONC 32.4 g/dl (31.0-37.0); MEAN PLATELET VOLUME 9.3 fl (7.0-11.0); MONO # 0.4 (0.1-0.6); MONO % 5.3 % (1.0-6.0); RBC 3.78 10^6/uL (3.5-6.1); RED CELL DISTRIBUTION WIDTH 14.3 % (11.5-14.5); WHITE BLOOD COUNT 8.4 10^3/ul (4.5-11.0)
[2018-03-20 08:25] LABS: ALB/GLOB RATIO 1.4 (1.1-1.8); ALBUMIN 3.7 g/dL (3.0-4.8); ALT/SGPT 31 U/L (7-56); AST/SGOT 23 U/L (14-36); BLOOD UREA NITROGEN 32 mg/dL (7-21); GFR AFRICAN-AMERICAN 52; GFR NON-AFRICAN AMERICAN 43
[2018-03-20 08:36] LABS: TROPONIN I < 0.01 ng/mL
[2018-03-20 08:45] LABS: INR 0.95 (0.93-1.08); PROTHROMBIN TIME 10.9 SECONDS (9.4-12.5)
--- NOTE | 2018-03-20 09:41 | CT ---
PROCEDURE: CT HEAD WITHOUT CONTRAST. HISTORY: Bad Headache past three days COMPARISON: None available. TECHNIQUE: Axial computed tomography images were obtained through the head/brain without intravenous contrast. Radiation dose: Total exam DLP = 815 mGy-cm. This CT exam was performed using one or more of the following dose reduction techniques: Automated exposure control, adjustment of the mA and/or kV according to patient size, and/or use of iterative reconstruction technique. FINDINGS: HEMORRHAGE: No intracranial hemorrhage. BRAIN: No mass effect or edema. Severe chronic microvascular changes in the periventricular white matter and left basal ganglia VENTRICLES: Unremarkable. No hydrocephalus. CALVARIUM: Unremarkable. PARANASAL SINUSES: Unremarkable as visualized. No significant inflammatory changes. MASTOID AIR CELLS: Unremarkable as visualized. No inflammatory changes. OTHER FINDINGS: None. IMPRESSION: No acute intracranial findings
[2018-03-20 09:56] LABS: URINE BILIRUBIN NEGATIVE (NEGATIVE); URINE BLOOD SMALL (NEGATIVE); URINE GLUCOSE (UA) NEGATIVE (NEGATIVE); URINE LEUKOCYTE ESTERASE LARGE Leu/uL (NEGATIVE); URINE PROTEIN 30 mg/dL (<30 mg/dL); URINE UROBILINOGEN 0.2 E.U./dL (<1 E.U./dL)
[2018-03-20 09:59] LABS: URINE APPEARANCE TURBID (CLEAR); URINE COLOR YELLOW (YELLOW)
[2018-03-20 10:13] LABS: URINE BACTERIA MANY (NEG); URINE WBC TNTC /hpf (0-6)
--- NOTE | 2018-03-20 10:26 | RAD ---
HISTORY: Headache and Weakness Generalized COMPARISON: 09/14/2017 FINDINGS: LUNGS: No active pulmonary disease. PLEURA: No significant pleural effusion identified, no pneumothorax apparent. CARDIOVASCULAR: Normal. OSSEOUS STRUCTURES: No significant abnormalities. VISUALIZED UPPER ABDOMEN: Normal. OTHER FINDINGS: None. IMPRESSION: No active disease.
[2018-03-20] MEDS ORDERED: cefTRIAXone 2 GM IN NS 2 GM/100 ML BAG IVPB STA (10:41)
[2018-03-20 13:43] VITALS: BP 148/59; PULSE 54; RESP 18
--- NOTE | 2018-03-20 18:15 | US ---
PROCEDURE: Right upper extremity venous US CLINICAL HISTORY: Arm pain and swelling Evaluate for deep venous thrombosis. PHYSICIAN(S): Harris Jones M.D FINDINGS: The visualized rightinternal jugular vein is sonographically normal and compressible. No evidence of obstruction or thrombus is seen. The visualized segments of the right subclavian vein are patent with normal waveforms. No sonographic evidence of obstruction or thrombosis is seen. The visualized deep venous system of the proximal right upper extremity is sonographically normal and compressible. IMPRESSION: 1. No sonographic evidence for deep venous thrombosis in the visualized segments of the right upper extremity.
== END 2018-03-20 13:15 | disposition home or self-care (01) ==
LOC: ED 07:08
DX: M79.81 Nontraumatic hematoma of soft tissue (principal); N39.0 Urinary tract infection, site not specified; I10 Essential (primary) hypertension; E78.5 Hyperlipidemia, unspecified; Z85.42 Personal history of malignant neoplasm of other parts of uterus
CPT/HCPCS: 70450; 71045; 80053; 81001; 82550; 82803; 83615; 84484; 85025; 85610; 87040; 93971; 96365; 99283; J0696

== ENCOUNTER 2018-09-16 15:24 | Inpatient (IN) | payer MEDICARE, OTHER ==
[2018-09-16 15:25] VITALS: PULSE 104
[2018-09-16 15:55] VITALS: BMI 29.0
--- NOTE | 2018-09-16 17:09 | ED PDOC ---
Arrival/HPI - General Chief Complaint: Fever Time Seen by Provider: 09/16/18 16:15 Historian: Patient - History of Present Illness Narrative History of Present Illness (Text): 09/16/18 17:06 83yo female with pmhx of hypertension, Depression and anxiety bib the son with complaint of nonproductive cough and subjective fever x 3days. The son states she received the Flu vaccine a week ago. Also report urinary retention. States patient usually catheterize herself but has not been able to cath herself today. States she have not urinated today. The son states she was placed on Macrobid yesterday for UTI, by her Urologist Dr. [place]. Denies sick contact, hematuria, sick contact, travel, vomiting, diarrhea, constipation, chest pain, any other complaint. Past Medical History - Provider Review Nursing Documentation Reviewed: Yes - Past History Past History: No Previous - Infectious Disease Hx of Infectious Diseases: None - Past Medical History Past Medical History: No Previous - Cardiac Hx Cardiac Disorders: Yes Hx Hypertension: Yes - Pulmonary Hx Respiratory Disorders: Yes Hx Pneumonia: Yes - Neurological Hx Dizziness: No - HEENT Hx HEENT Disorder: Yes (EYE INFECTION) Hx Cataracts: Yes (RT EYE CATARACT EXTRACTION) - Renal Hx Renal Disorder: No - Endocrine/Metabolic Hx Endocrine Disorders: No - Hematological/Oncological Hx Blood Disorders: Yes Hx Anemia: Yes (IRON DEFICIENCY) - Integumentary Hx Dermatological Disorder: No - Musculoskeletal/Rheumatological Hx Arthritis: Yes - Gastrointestinal Hx Gastrointestinal Disorders: Yes (GASTROENTERITIS) - Genitourinary/Gynecological Hx Genitourinary Disorders: Yes (urgency/frequency/HESITANCY-ATONIC BLADDER) Hx Urinary Tract Infection: Yes - Psychiatric Hx Psychophysiologic Disorder: No Hx Substance Use: No - Past Surgical History Past Surgical History: No Previous - Surgical History Hx Cholecystectomy: Yes Other/Comment: rt eye cataract Sep 1103/2017 - Anesthesia Hx Anesthesia: Yes Hx Anesthesia Reactions: No Hx Malignant Hyperthermia: No - Suicidal Assessment Feels Threatened In Home Enviroment: No Family/Social History - Physician Review Nursing Documentation Reviewed: Yes Family/Social History: Unknown Family HX Smoking Status: Never Smoked Hx Alcohol Use: No Hx Substance Use: No Allergies/Home Meds Allergies/Adverse Reactions: Allergies No Known Allergies Allergy (Verified 03/20/18 07:20) Home Medications: Home Meds Medication Instructions Recorded Confirmed RX: Atorvastatin [Lipitor] 10 mg PO 1700 01/17/17 03/20/18 RX: Aspirin [Ecotrin] 81 mg PO DAILY 03/22/17 03/20/18 RX: Metoprolol Tartrate [Lopressor] 25 mg PO BID 04/15/17 03/20/18 RX: Lisinopril [Zestril] 20 mg PO DAILY 09/14/17 03/20/18 Esomeprazole Magnesium [Nexium] 40 mg PO DAILY 03/20/18 03/20/18 Furosemide [Lasix] 20 mg PO DAILY 03/20/18 03/20/18 hydrALAZINE [hydralazine 10 mg PO BID 03/20/18 03/20/18 Hydrochloride] Review of Systems - Physician Review All systems were reviewed & negative as marked: Yes - Review of Systems Constitutional: Fevers Eyes: Normal ENT: Normal Respiratory: Cough Cardiovascular: Normal Gastrointestinal: Normal Genitourinary Female: Other (Urinary retention) Musculoskeletal: Normal Skin: Normal Neurological: Normal Endocrine: Normal Hemo/Lymphatic: Normal Psychiatric: Normal Physical Exam Vital Signs Reviewed: Yes Vital Signs Temp Pulse Resp BP Pulse Ox 09/16/18 15:48 97.9 F 67 18 132/57 L 98 Temperature: Afebrile Blood Pressure: Normal Pulse: Regular Respiratory Rate: Normal Appearance: Positive for: Well-Appearing, Non-Toxic, Comfortable Pain Distress: None Mental Status: Positive for: Alert and Oriented X 3 - Systems Exam Head: Present: Atraumatic, Normocephalic Pupils: Present: PERRL Extroacular Muscles: Present: EOMI Conjunctiva: Present: Normal Mouth: Present: Moist Mucous Membranes Neck: Present: Normal Range of Motion Respiratory/Chest: Present: Clear to Auscultation, Good Air Exchange. No: Respiratory Distress, Accessory Muscle Use, Decreased Breath Sounds, Rales, Retracting, Rhonchi Cardiovascular: Present: Regular Rate and Rhythm, Normal S1, S2. No: Murmurs Abdomen: Present: Tenderness (Suprapubic), Normal Bowel Sounds, Other (soft). No: Distention, Peritoneal Signs, Rebound, Guarding, McBurney's Point Tender, Rovsing's Sign Present Back: Present: Normal Inspection Upper Extremity: Present: Normal Inspection. No: Cyanosis, Edema Lower Extremity: Present: Normal Inspection. No: Edema Neurological: Present: GCS=15, CN II-XII Intact, Speech Normal Skin: Present: Warm, Dry, Normal Color. No: Rashes Psychiatric: Present: Alert, Oriented x 3, Normal Insight, Normal Concentration Medical Decision Making ED Course and Treatment: 09/17/18 01:25 83yo female in ED for cough, fever, urinary retention x 3days. Labs blood culture Urine culture EKG CXR Workman insertion EKG sinus rhythm with PAC with junctional escapes @ 86bpm. Nonspecific Twave abnormality. N-stemi Chest RLL infiltrate Lab was reviewed with leukocytisis and elevated Cr/Bun likley secondary to prerenal azotemia UA - Moderate leuk with WBC Pt was admitted for pneumonia, UTI and CAREY Case was MITCHEL Kathleen patient was admitted Case was also Rosa Elena GRULLON Dr and he was aware - RAD Interpretation Radiology Orders: 09/16/18 16:33 CHEST TWO VIEWS (PA/LAT) [RAD] Stat Disposition/Present on Arrival - Present on Arrival Any Indicators Present on Arrival: No History of DVT/PE: No History of Uncontrolled Diabetes: No Urinary Catheter: No History of Decub. Ulcer: No History Surgical Site Infection Following: None - Disposition Have Diagnosis and Disposition been Completed?: Yes Diagnosis: UTI (urinary tract infection), Dehydration, CAREY (acute kidney injury), Urinary retention, Pneumonia Disposition: HOSPITALIZED Disposition Time: 19:00 Patient Plan: Admission Patient Problems: Current Active Problems Problem Status Onset CAREY (acute kidney injury) Acute Dehydration Acute Pneumonia Acute UTI (urinary tract infection) Acute Urinary retention Acute Condition: FAIR
[2018-09-16 17:38] LABS: BASO # 0.03 K/mm3 (0.0-2.0); BASO % 0.2 % (0.0-3.0); EOS # 0.3 (0.0-0.7); EOS % 2.5 % (1.5-5.0); GRAN # 8.46 (1.4-6.5); GRAN % 69.2 % (50.0-68.0); HEMOGLOBIN 10.3 g/dL (12.0-16.0); LYMPH # 2.4 (1.2-3.4); MEAN CELL VOLUME 89.6 fl (80.0-105.0); MEAN CORPUSCULAR HEMOGLOBIN 28.9 pg (25.0-35.0); MEAN CORPUSCULAR HGB CONC 32.3 g/dl (31.0-37.0); MEAN PLATELET VOLUME 10.9 fl (7.0-11.0); MONO % 8.1 % (1.0-6.0); RBC 3.56 10^6/uL (3.5-6.1); RED CELL DISTRIBUTION WIDTH 16.3 % (11.5-14.5); WHITE BLOOD COUNT 12.2 10^3/uL (4.5-11.0)
[2018-09-16 17:46] LABS: INR 1.03; PARTIAL THROMBOPLASTIN TIME 24.1 Seconds (25.1-36.5); PROTHROMBIN TIME 11.8 SECONDS (9.4-12.5)
[2018-09-16 17:52] LABS: ALBUMIN 3.6 g/dL (3.0-4.8); CALCIUM 8.8 mg/dL (8.4-10.5)
[2018-09-16] MEDS ORDERED: Sodium Chloride 0.9% 1,000 ML IV STA (17:54)
[2018-09-16 18:52] LABS: URINE BILIRUBIN NEGATIVE (NEGATIVE); URINE BLOOD NEGATIVE (NEGATIVE); URINE GLUCOSE (UA) NEGATIVE (NEGATIVE); URINE LEUKOCYTE ESTERASE MODERATE Leu/uL (NEGATIVE); URINE PROTEIN NEGATIVE mg/dL (<30 mg/dL); URINE UROBILINOGEN 0.2 E.U./dL (<1 E.U./dL)
[2018-09-16 18:55] LABS: URINE APPEARANCE SL CLOUDY (CLEAR); URINE COLOR YELLOW (YELLOW)
[2018-09-16 18:59] LABS: URINE BACTERIA TRACE (NEG); URINE RBC NEGATIVE /hpf (0-2); URINE WBC 15 - 20 /hpf (0-6)
[2018-09-16] MEDS ORDERED: Azithromycin 500MG/NS 250ml 500 MG/250 ML BAG IVPB STA (19:17)
[2018-09-16] MEDS ORDERED: cefTRIAXone 1 gm 1 GM/100 ML BAG IVPB STA (19:17)
[2018-09-16] MEDS ORDERED: Albuterol-Ipratrop 3 mg / 0.5 (3 ml) UD IH PRN (20:41)
--- NOTE | 2018-09-16 21:01 | CP.PCM.HP ---
History of Present Illness - History of Present Illness History of Present Illness: Zeina Scott, PGY1 Hospital H&P This is an 83 year old female with PMH of afib not on AC, HLD, HTYN, obesity, uterine cancer s/p radiation and hysterectomy in 1999, GERD, depression, ESBL UTI, CKD stage 3 and pseudogout presenting for one week history of URI symptoms including productive cough with yellow sputum, headache, generalized weakness, muscle aches and subjective fever. She denies having similar symptoms in past. She admits to having the flu shot last Saturday and began to have symptoms two days later. She sent a urine culture to her doctor last Saturday which was subsequently positive for unknown bacteria and PMD started patient on nitrofurantoin with first dose started yesterday. She also admits to having difficulty with urine catheritization over the last few days. She states that she has been using the catheritization for the last one year since complications from her left hip surgery as per patient. She denies CP, SOB, chills, nausea, vomiting, new back pain, abdominal pain, constipation, diarrhea, numbness, tingling, swelling, recent travel, sickness before onset of symptoms, trauma and lifestyle changes including diet and weight loss/gain. 12 point ROS noted here, otherwise unremarkable. PMD: Dr. Pacheco Urologist: Dr. Cuba PMH: afib not on AC, HLD, HTYN, obesity, uterine cancer s/p radiation and h ysterectomy in 1999, GERD, depression, ESBL UTI, CKD stage 3 and pseudogout SH: denies smoking, drinking and drugs Sx: hysterectomy 1999, uterine radiation 1999, bladder lift 2001, hip replacement 2016, appendix removal 2016 and gallbladder removal in 2014 FH: CAD All: NKDA Meds: lisinopril 20mg BID, metoprolol tartrate 25mg BID, hydralazine 50mg BID, praoxetine 20mg, atorvostatin 10mg, furosemide 20mg, nexium 40mg, zolpidem 10mg, ASA 81 Present on Admission - Present on Admission Any Indicators Present on Admission: Yes Urinary Catheter: Yes Past Patient History - Infectious Disease Hx of Infectious Diseases: None - Past Medical History & Family History Past Medical History?: Yes - Past Social History Smoking Status: Never Smoked - CARDIAC Hx Cardiac Disorders: Yes Hx Hypertension: Yes - PULMONARY Hx Respiratory Disorders: Yes Hx Pneumonia: Yes - NEUROLOGICAL Hx Dizziness: No - HEENT Hx HEENT Problems: Yes (EYE INFECTION) Hx Cataracts: Yes (RT EYE CATARACT EXTRACTION) - RENAL Hx Chronic Kidney Disease: No - ENDOCRINE/METABOLIC Hx Endocrine Disorders: No - HEMATOLOGICAL/ONCOLOGICAL Hx Blood Disorders: Yes Hx Anemia: Yes (IRON DEFICIENCY) - INTEGUMENTARY Hx Dermatological Problems: No - MUSCULOSKELETAL/RHEUMATOLOGICAL Hx Arthritis: Yes - GASTROINTESTINAL Hx Gastrointestinal Disorders: Yes (GASTROENTERITIS) - GENITOURINARY/GYNECOLOGICAL Hx Genitourinary Disorders: Yes (urgency/frequency/HESITANCY-ATONIC BLADDER) Hx Urinary Tract Infection: Yes - PSYCHIATRIC Hx Psychophysiologic Disorder: No Hx Substance Use: No - SURGICAL HISTORY Hx Cholecystectomy: Yes Other/Comment: rt eye cataract Sep 1103/2017 - ANESTHESIA Hx Anesthesia: Yes Hx Anesthesia Reactions: No Hx Malignant Hyperthermia: No Meds Allergies/Adverse Reactions: Allergies Allergy/AdvReac Type Severity Reaction Status Date / Time No Known Allergies Allergy Verified 03/20/18 07:20 Physical Exam - Constitutional Appears: No Acute Distress - Head Exam Head Exam: ATRAUMATIC, NORMAL INSPECTION - Eye Exam Eye Exam: EOMI Pupil Exam: PERRL - ENT Exam ENT Exam: Mucous Membranes Moist - Respiratory Exam Respiratory Exam: absent: Accessory Muscle Use, Wheezes, Respiratory Distress Additional comments: minimal rales appreciated in lower lung barbosa - Cardiovascular Exam Cardiovascular Exam: Irregular Rhythm, +S1, +S2 - GI/Abdominal Exam GI & Abdominal Exam: Normal Bowel Sounds, Tenderness. absent: Firm, Guarding, Soft - Extremities Exam Extremities exam: Positive for: normal inspection, pedal pulses present. Negative for: calf tenderness - Neurological Exam Neurological exam: Alert, Oriented x3 - Skin Skin Exam: Normal Color, Warm Results - Vital Signs Recent Vital Signs: Last Vital Signs Temp 97.9 F 09/16/18 15:48 Pulse 67 09/16/18 15:48 Resp 18 09/16/18 15:48 BP 132/57 L 09/16/18 15:48 Pulse Ox 98 09/16/18 15:48 - Labs Result Diagrams: 09/16/18 17:10 09/16/18 17:10 Labs: Laboratory Results - last 24 hr 09/16/18 09/16/18 09/16/18 17:10 17:10 17:10 WBC 12.2 H RBC 3.56 Hgb 10.3 L Hct 31.9 L MCV 89.6 D MCH 28.9 MCHC 32.3 RDW 16.3 H Plt Count 279 MPV 10.9 Gran % 69.2 H Lymph % (Auto) 20.0 L Rains % (Auto) 8.1 H Eos % (Auto) 2.5 Baso % (Auto) 0.2 Gran # 8.46 H Lymph # (Auto) 2.4 Rains # (Auto) 1.0 H Eos # (Auto) 0.3 Baso # (Auto) 0.03 PT 11.8 INR 1.03 APTT 24.1 L Sodium 138 Potassium 4.0 Chloride 108 H Carbon Dioxide 21 Anion Gap 14 BUN 34 H Creatinine 1.4 H Est GFR ( Amer) 44 Est GFR (Non-Af Amer) 36 Random Glucose 111 H Calcium 8.8 Total Bilirubin 0.4 AST 25 ALT 28 Alkaline Phosphatase 101 NT-Pro-B Natriuret Pep Total Protein 7.1 Albumin 3.6 Globulin 3.5 Albumin/Globulin Ratio 1.0 L Urine Color Urine Appearance Urine pH Ur Specific [place] Urine Protein Urine Glucose (UA) Urine Ketones Urine Blood Urine Nitrate Urine Bilirubin Urine Urobilinogen Ur Leukocyte Esterase Urine RBC Urine WBC Urine Bacteria Influenza Typ A,B (EIA) 09/16/18 09/16/18 09/16/18 18:00 18:45 19:10 WBC RBC Hgb Hct MCV MCH MCHC RDW Plt Count MPV Gran % Lymph % (Auto) Rains % (Auto) Eos % (Auto) Baso % (Auto) Gran # Lymph # (Auto) Rains # (Auto) Eos # (Auto) Baso # (Auto) PT INR APTT Sodium Potassium Chloride Carbon Dioxide Anion Gap BUN Creatinine Est GFR ( Amer) Est GFR (Non-Af Amer) Random Glucose Calcium Total Bilirubin AST ALT Alkaline Phosphatase NT-Pro-B Natriuret Pep 990 H Total Protein Albumin Globulin Albumin/Globulin Ratio Urine Color Yellow Urine Appearance Sl cloudy Urine pH 6.0 Ur Specific [place] 1.010 Urine Protein Negative Urine Glucose (UA) Negative Urine Ketones Negative Urine Blood Negative Urine Nitrate Negative Urine Bilirubin Negative Urine Urobilinogen 0.2 Ur Leukocyte Esterase Moderate H Urine RBC Negative Urine WBC 15 - 20 Urine Bacteria Trace Influenza Typ A,B (EIA) Negative for flu a/b Assessment & Plan - Assessment and Plan (Free Text) Assessment: This is an 83 year old female with PMH of afib not on AC, HLD, HTN, obesity, uterine cancer s/p radiation and hysterectomy in 1999, GERD, depression, ESBL UTI, CKD stage 3 and pseudogout presenting for one week history of URI symptoms including productive cough with yellow sputum, headache, generalized weakness, muscle aches and subjective fever. Plan: Cough -PNA vs CHF -CXR shows possible RLL infiltrate, f/u official read -afebrile, WBC of 12.2 -procal pending -blood culture pending -continue azithromycin day 1 -BNP elevated at 990 -trending trops -echo pending -cardiology on consult, Dr. Garcia UTI -U/A positive for leuk esterase -urine culture pending -continue rocephin day 1 CAREY on CKD -2/2 dehydration vs urinary retention -urinary hidalgo catheter placed, bladder scan showed 368cc in ED -received 1L NS -follows Dr. Cuba outpatient urology regularly -f/u AM labs Hx of afib -not on AC -continue metoprolol Hx of anemia -currently at baseline -normocytic -iron studies pending Hx of HTN -continue hydralazine Hx of HLD -continue lipitor Hx of GERD -continue nexium PPX with SCD and pepcid Patient seen and case discussed with attending, Dr. Kathleen
[2018-09-17] MEDS: Albuterol-Ipratrop 3 mg / 0.5 (3 ml) UD IH SCH ×5 (01:26→19:14)
[2018-09-17] MEDS: Pantoprazole 40 mg EC Tab PO SCH (06:21)
[2018-09-17 07:27] LABS: IRON 31 ug/dL (45-180)
[2018-09-17 07:36] LABS: % IRON SATURATION 12 % (20-55); TOTAL IRON BINDING CAPACITY 247 ug/dL (265-497)
[2018-09-17 08:01] LABS: BASO # 0.04 K/mm3 (0.0-2.0); BASO % 0.4 % (0.0-3.0); EOS # 0.3 (0.0-0.7); EOS % 2.9 % (1.5-5.0); GRAN # 7.34 (1.4-6.5); GRAN % 68.9 % (50.0-68.0); HEMOGLOBIN 9.7 g/dL (12.0-16.0); LYMPH # 2.3 (1.2-3.4); LYMPH % 21.4 % (22.0-35.0); MEAN CELL VOLUME 90.3 fl (80.0-105.0); MEAN CORPUSCULAR HEMOGLOBIN 28.6 pg (25.0-35.0); MEAN CORPUSCULAR HGB CONC 31.7 g/dl (31.0-37.0); MEAN PLATELET VOLUME 10.6 fl (7.0-11.0); MONO # 0.7 (0.1-0.6); MONO % 6.4 % (1.0-6.0); RBC 3.39 10^6/uL (3.5-6.1); RED CELL DISTRIBUTION WIDTH 16.6 % (11.5-14.5); WHITE BLOOD COUNT 10.7 10^3/uL (4.5-11.0)
[2018-09-17 08:19] LABS: ALBUMIN 3.3 g/dL (3.0-4.8); CALCIUM 8.6 mg/dL (8.4-10.5)
[2018-09-17 08:21] LABS: TROPONIN I 0.02 ng/mL
--- NOTE | 2018-09-17 08:47 | RAD ---
Date of service: 09/16/2018 HISTORY: cough COMPARISON: 03/20/2018 FINDINGS: LUNGS: The lungs are well inflated and clear. There are fibrotic changes in the right upper lobe. PLEURA: No pleural effusions or pneumothorax. CARDIOVASCULAR: The heart is normal in size. Atherosclerotic aortic arch calcifications are present. OSSEOUS STRUCTURES: Within normal limits for the patient's age. VISUALIZED UPPER ABDOMEN: Normal. OTHER FINDINGS: None. IMPRESSION: No active pulmonary disease.
--- NOTE | 2018-09-17 08:50 | CP.PCM.APN ---
Subjective - Date & Time of Evaluation Date of Evaluation: 09/17/18 Time of Evaluation: 08:00 - Subjective Subjective: Pt seen and examined at bedside. +chest discomfort when coughing. Denies shortness of breath. No acute events overnight. Objective - Vital Signs/Intake and Output Vital Signs (last 24 hours): Temp Pulse Resp BP Pulse Ox 98.2 F 70 15 148/69 96 09/16/18 23:13 09/17/18 01:27 09/17/18 03:37 09/16/18 23:13 09/16/18 23:13 Intake and Output: 09/17/18 09/17/18 06:59 18:59 Intake Total 480 Output Total 1100 Balance -620 - Medications Medications: Current Medications Acetaminophen (Tylenol 325mg Tab) 650 mg PO Q4H PRN PRN Reason: Headache Albuterol/Ipratropium (Duoneb 3 Mg/0.5 Mg (3 Ml) Ud) 3 ml IH Q2H PRN PRN Reason: Shortness of Breath Albuterol/Ipratropium (Duoneb 3 Mg/0.5 Mg (3 Ml) Ud) 3 ml IH [id number] [facility] Last Admin: 09/17/18 07:22 Dose: 3 ml Aspirin (Ecotrin) 81 mg PO DAILY [facility] Atorvastatin Calcium (Lipitor) 10 mg PO 1700 [facility] Famotidine (Pepcid) 20 mg IVP DAILY [facility] Furosemide (Lasix) 20 mg PO DAILY [facility] Guaifenesin/Dextromethorphan (Robitussin Dm) 5 ml PO Q4H PRN PRN Reason: Cough Hydralazine HCl (Apresoline) 50 mg PO BID [facility] Ceftriaxone Sodium (Rocephin 1 Gram Ivpb) 1 gm in 100 mls @ 100 mls/hr IVPB DAILY [facility]; Protocol Azithromycin (Zithromax 500mg In Ns) 500 mg in 250 mls @ 167 mls/hr IVPB DAILY [facility]; Protocol Lisinopril (Zestril) 20 mg PO BID [facility] Metoprolol Tartrate (Lopressor) 25 mg PO BID [facility] Pantoprazole Sodium (Protonix Ec Tab) 40 mg PO 0600 [facility] Last Admin: 09/17/18 06:21 Dose: 40 mg Paroxetine HCl (Paxil) 20 mg PO 1800 [facility] Zolpidem Tartrate (Ambien) 5 mg PO HS PRN; Protocol PRN Reason: Insomnia Last Admin: 09/17/18 00:52 Dose: 5 mg - Labs Labs: 09/17/18 07:30 09/17/18 07:30 PT 11.8 SECONDS (9.4-12.5) 09/16/18 17:10 INR 1.03 09/16/18 17:10 APTT 24.1 Seconds (25.1-36.5) L 09/16/18 17:10 - Constitutional Appears: Well, No Acute Distress - Head Exam Head Exam: ATRAUMATIC - Eye Exam Eye Exam: Normal appearance - ENT Exam ENT Exam: Normal Exam - Neck Exam Neck Exam: Full ROM - Respiratory Exam Additional comments: mild crackles on bilateral bases - Cardiovascular Exam Cardiovascular Exam: +S1, +S2 - GI/Abdominal Exam GI & Abdominal Exam: Soft, Normal Bowel Sounds - Rectal Exam Rectal Exam: Deferred - Exam Additional comments: +hidalgo draining clear brent urine - Neurological Exam Neurological Exam: Alert, Awake, Oriented x3 Assessment and Plan - Assessment and Plan (Free Text) Assessment: Pt is a 83 year old female with PMHx of afib not on AC, HLD, HTN, obesity, uterine cancer s/p radiation and hysterectomy in 1999, GERD, depression, ESBL UTI, CKD stage 3 and pseudogout who presented in ED 2/2 productive cough, subjective [id number], and urinary retention. Per pt's daughter, Pt self- catheterized approximately 4xday. Pt is admitted for cough (pne vs chf) and UTI. Plan: CXR - showed fibrotic changes in Right upper lobe. No active pulmonary disease. On Rocephin and Zithromax Leukocytosis resolved Pending procal/bcx/ucx Cardio and Uro on board Meds per DEC Physical therapy Will continue to follow
[2018-09-17] MEDS ORDERED: Magnesium Sulfate 2 gm/50 ml 2 GM/50 ML BAG IVPB ONE (08:51)
[2018-09-17] MEDS ORDERED: Potassium Chloride 40 mEq/30 ml LIQ UD PO STA (08:54)
[2018-09-17] MEDS ORDERED: Potassium Chloride 20 mEq ER Tab PO STA (09:17)
[2018-09-17] MEDS: cefTRIAXone 1 gm 1 GM/100 ML BAG IVPB SCH (13:42)
[2018-09-17 15:01] LABS: FLUID TYPE SYNOVIAL FLUID
[2018-09-17 17:35] LABS: SF GROSS APPEARANCE CLOUDY (CLEAR)
[2018-09-17 17:36] LABS: SYNOVIAL FLUID COMMENT LIGHT YELLOW
[2018-09-17 17:38] LABS: HEPATITIS B SURFACE AG Negative (NEGATIVE)
[2018-09-17 17:44] LABS: HEPATITIS A IGM NEGATIVE (NEGATIVE); HEPATITIS B CORE AB NEGATIVE (NEGATIVE)
[2018-09-17] MEDS: Azithromycin 500MG/NS 250ml 500 MG/250 ML BAG IVPB SCH (17:55)
[2018-09-17 17:56] LABS: HEPATITIS C ANTIBODY NEGATIVE (NEGATIVE)
--- NOTE | 2018-09-17 19:38 | CON ---
DATE: 09/17/2018 ORTHOPEDIC CONSULT AND PROCEDURE REPORT HISTORY OF PRESENT ILLNESS: An 83-year-old female who was so known to me. I had seen her a couple of years ago with right shoulder effusion came out to be pseudogout. She has an effusion of her right shoulder again with a past history of rotator cuff tearing several years ago and worsening of her rotator cuff arthropathy. So, we aspirated the right shoulder after prepping and draping cleaned the skin bacteria and aspirated 30 mL of clear synovial fluid. 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 So, we will await for the cultures to comeback, and the cell count to comeback and crystal analysis to comeback and hopefully she will feel better and we will get a new x-ray of her right shoulder,the last one was several years ago. FINAL DIAGNOSES: Right shoulder pain with effusion, osteoarthritis and chronic rotator cuff tear. Grant Bains DO JULY
--- NOTE | 2018-09-17 20:43 | CARD ---
APPROVED REPORT Date of service: 09/17/2018 EXAM: Two-dimensional and M-mode echocardiogram with Doppler and color Doppler. INDICATION EVALUATE CHF 2D DIMENSIONS Left Atrium (2D)4.7 (1.6-4.0cm)IVSd1.1 (0.7-1.1cm) LVDd5.1 (3.9-5.9cm)PWd1.3 (0.7-1.1cm) LVDs3.5 (2.5-4.0cm)FS (%) 30.4 % LVEF (%)57.7 (>50%) M-Mode DIMENSIONS Aortic Root2.80 (2.2-3.7cm)Aortic Cusp Exc.1.60 (1.5-2.0cm) Aortic Valve AoV Peak Ztksjweg689.0cm/sAoV VTI47.1cmAO Peak GR.20mmHg LVOT Peak Abaunhrd53.1cm/sLVOT VTI20.30cmAO Mean GR.10mmHg AI P 1/2 [id number] Mitral Valve MV E Zczbonps448.0cm/sMV A Xlccdaeo47.8cm/sE/A ratio1.4 TDI Lateral E' Peak V8.48cm/sMedial E' Peak V7.70cm/sE/Lateral E'14.2 E/Medial E'15.6 Pulmonary Valve PV Peak Fxhugrlv68.2cm/sPV Peak Grad.3mmHg Tricuspid Valve TR Peak Gcsmalfl226yq/sRAP [id number] Peak Gr.40mmHg [id number] LEFT VENTRICLE The left ventricle is normal size. There is borderline concentric left ventricular hypertrophy. The left ventricular function is normal. The left ventricular ejection fraction is within the normal range. There is normal LV segmental wall motion. Transmitral Doppler flow pattern is Grade II-pseudonormal filling dynamics. RIGHT VENTRICLE The right ventricle is normal size. There is normal right ventricular wall thickness. The right ventricular systolic function is normal. ATRIA The left atrium is mildly dilated. The right atrium size is normal. AORTIC VALVE The aortic valve is moderately sclerotic. There is moderate aortic regurgitation. MITRAL VALVE The mitral valve is mildly thickened. Mitral regurgitation is mild. TRICUSPID VALVE There is moderate tricuspid regurgitation. There is moderate pulmonary hypertension. GREAT VESSELS The aortic root is normal in size. PERICARDIAL EFFUSION There is a trace pericardial effusion. <Conclusion> There is borderline concentric left ventricular hypertrophy. The left ventricular function is normal. The left ventricular ejection fraction is within the normal range. There is normal LV segmental wall motion. Transmitral Doppler flow pattern is Grade II-pseudonormal filling dynamics. The aortic valve is moderately sclerotic. There is moderate aortic regurgitation. Mitral regurgitation is mild. There is moderate tricuspid regurgitation. There is moderate pulmonary hypertension.
--- NOTE | 2018-09-17 20:45 | CARD ---
APPROVED REPORT Date of service: 09/16/2018 EKG Measurement Heart [id number] <Conclusion> Sinus rhythm with premature atrial complexes Nonspecific T wave abnormality Abnormal ECG
--- NOTE | 2018-09-17 21:21 | CON ---
DATE: 09/17/2018 GENITOURINARY CONSULTATION CHIEF COMPLAINT: Fever and chills. HISTORY OF PRESENT ILLNESS: This is an 83-year-old female, who is well known to me. The patient has a history of incomplete bladder emptying. She had a sling or pelvic organ prolapse procedure done many years ago in [place], and since that time has had bladder emptying problems. She has been managed with clean intermittent catheterization, which she has been doing at home. The patient reports in the last few months she has been having difficulty with the catheterizations and has only been doing once a day or once every other day. In the past, she had been doing two or three times a day without difficulty. A few days before her admission, the patient felt some pain when she was catheterized, and then a few days after that, she began having a fever, some reported chills, as well as a productive cough with yellowish sputum. She was having some generalized weakness and muscle aches. She was brought to the emergency room by her family, and she was admitted for possible pneumonia as well as urinary infection. The patient did drop a urine off in my office prior to this and the urine was positive for greater than 100,000 colonies per mL. She was started on Bactrim, but only took one dose before coming to the hospital. PAST MEDICAL HISTORY: Significant for atrial fibrillation, hyperlipidemia, hypertension, obesity, uterine cancer with pelvic radiation and hysterectomy, depression, recurrent urinary tract infections, chronic kidney disease. MEDICATIONS: Currently include, Ambien, hydralazine, DuoNeb, Ecotrin, Eliquis, Lasix, Lipitor, Lopressor, Paxil, Pepcid, Protonix, Robitussin, Rocephin, Tylenol, Zestril, and Zithromax. ALLERGIES: NO KNOWN DRUG ALLERGIES. FAMILY HISTORY: Noncontributory for this admission. SOCIAL HISTORY: No smoking or EtOH use. REVIEW OF SYSTEMS: The patient is awake and answering questions with her daughter present. She is complaining of cough, some weakness, some lethargy. She denies any chest pain or palpitations. She does report some difficulty ambulating and some generalized malaise. system, as per the history of present illness. Other systems are negative. PHYSICAL EXAMINATION: GENERAL: The patient is awake and alert. She is lying in bed and answering questions. She is in no acute distress. VITAL SIGNS: She is afebrile. Temperature of 98, pulse 83, BP 145/65, and respirations are 20. NECK: Supple. There is no adenopathy. CHEST: Exam of the chest reveals a normal inspiratory effort. CARDIAC: Exam shows positive S1, S2. There is trace peripheral edema noted. ABDOMEN: On abdominal exam, the abdomen is soft, nontender, nondistended. There is no splenomegaly or costovertebral angle tenderness. GENITOURINARY: On exam, external genitalia within normal limits. There is a Workman catheter in place, which is draining clear-colored urine. LABORATORY DATA: On laboratory exam, the patient had a WBC count of 12.2, which has come down to 10.7. GFR of 43, BNP of 990, procalcitonin 0.070. Urinalysis showed moderate leukocytes, 15-20, on microscopy, negative for RBC, nitrites were negative. On radiologic exam, no pertinent urologic imaging was done. IMPRESSION AND PLAN: This is an 83-year-old female, who is well known to me. The patient has a history of recurrent urinary infections and incomplete bladder emptying. For now, the patient is being treated for urinary infection as well as productive cough with antibiotics. Urologically, the patient can be discharged home with the indwelling Workman catheter when she is feeling better. I can remove the Workman in my office after she has completed her antibiotics, and we will restart the patient on intermittent catheterization. If she continues to have problems with intermittent catheterization, my recommendation would be to maintain the indwelling catheter, which can be changed monthly. The patient's daughter was inquiring about possible urinary diversion; however, given the patient's age and medical issues, I think that would cause more problems for her than an indwelling catheter at this point. Thank you for allowing me to participate in the care of this patient. I will follow her with you. Oscar Cuba MD
[2018-09-17] MEDS: guaiFENesin DM 100 mg-10 mg/5 ml UD PO PRN (21:43)
--- NOTE | 2018-09-17 23:21 | CON ---
DATE: 09/17/2018 LOCATION: The patient is in room 563, bed 1. REASON FOR CONSULTATION: Fever, cough, atrial fibrillation, hypertension, nonischemic cardiomyopathy, nonobstructive coronary artery disease. HISTORY OF PRESENT ILLNESS: The patient is an 83-year-old female admitted with since last several days. She is having fever and also cough with yellow expectoration. Denies chest pain or palpitation. The patient denies any exertional chest pain. Occasionally, she gets shortness of breath. The patient now sitting in bed without any respiratory distress. Denies any chest pain or palpitation. PAST MEDICAL HISTORY: Positive for atrial fibrillation, hypertension, hyperlipidemia, chronic depression, insomnia, recurrent urinary tract infection, history of urinary bladder dysfunction and the patient has to do frequent catheterization on herself because she cannot pass the urine. The patient had cardiac catheterization on 12/28/2016 which showed ejection fraction close to 35% to 40% with LAD 50% to 55% stenosis. Other vessels did not show any obstruction, so this was labeled as nonobstructive coronary artery disease and nonischemic cardiomyopathy, EDP was 14 mmHg. PAST SURGICAL HISTORY: The patient had hysterectomy for cervical cancer, status post radiation. The patient also had appendectomy and cholecystectomy. The patient, since hysterectomy, has problem with urinary bladder and had difficulty passing urine, but recently got worse and she had do catheterization herself. PERSONAL HISTORY: No history of smoking or drinking. ALLERGIES: THE PATIENT DENIES ANY ALLERGIES. REVIEW OF SYSTEMS: All the systems reviewed, positive as mentioned in the history except the patient also complaining right shoulder pain which she had pain before in the past, but now her pain is much worse. HOME MEDICATIONS: The patient's home medications included lisinopril 20 mg daily, hydralazine 10 mg b.i.d., Cardizem CD 240 p.o. daily, Ambien 5 mg p.o. at bedtime p.r.n., Paxil 20 mg p.o. daily, metoprolol tartrate 25 b.i.d., furosemide 20 daily, Nexium 40 daily, Keflex 500 mg p.o. q.i.d., atorvastatin 10 mg daily, Ecotrin 81 mg daily. PREVIOUS CARDIAC WORKUP: The patient had echocardiogram on 12/27/2016, which showed LV size normal, systolic function of LV was mildly impaired, trace aortic regurgitation, [id number] tricuspid regurgitation, RVSP 45 mmHg suggestive of mild pulmonary hypertension. The patient has stress test 12/27/2016 which showed partially reversible anterior defect with ejection fraction of 40%. The patient had cardiac catheterization on 12/28/2016 which showed nonobstructive coronary artery disease, LAD was 50% to 55% stenosis, and LV ejection fraction about 35% to 40% suggestive of nonischemic cardiomyopathy, EDP was 14 mmHg. PHYSICAL EXAMINATION: VITAL SIGNS: Blood pressure 148/71, respiratory rate 18, pulse 90 and temperature 98.6. HEENT: Head is normocephalic. Eyes: Pupils normal. Conjunctivae slightly pale. NECK: JVP low. Carotids equal. THORAX: AP diameter normal. LUNGS: No significant rales. CARDIOVASCULAR: S1 and S2. Systolic murmur grade 2-3/6. No rubs. Irregular rhythm. ABDOMEN: Soft, nontender. No organomegaly. Bowel sounds normal. EXTREMITIES: No clubbing. No cyanosis. LABORATORY DATA: WBC 10.7, hemoglobin 9.7, hematocrit 30.6, platelets 273. Prothrombin time 11.8, INR 1.03, PTT 24.1. EKG showed atrial fibrillation, moderate rate, nonspecific ST-T changes. Chest x-ray; lungs are clear, fibrotic changes in the right upper lobe, heart is normal size aortic arch classifications are present. DIAGNOSES: Atrial fibrillation, moderate rate. According to the daughter of the patient, she had atrial fibrillation before, but later on she was told she has in regular rhythm, so anticoagulation was stopped and it looks like the patient has been back in atrial fibrillation, hypertension, nonischemic cardiomyopathy, respiratory tract infection with expectoration, fever and cough, anemia. Right shoulder has pain and also there is fluid in the right shoulder in the bursa. PLAN: The patient will go back on hydralazine 50 b.i.d., aspirin 81 daily, furosemide 20 daily, atorvastatin 10 daily, metoprolol 25 b.i.d., Paxil 20 mg IV daily, Protonix 40 p.o. daily, ceftriaxone 1 g IV daily, azithromycin 500 mg IV daily. We will add Eliquis 5 mg b.i.d. to therapy because the patient is back in atrial fibrillation. The patient's BUN on admission was 34, today is 26; potassium 3.5, addition potassium therapy has been requested. We will repeat labs in the morning. I will put her on Eliquis 2.5 b.i.d. and will check electrolytes, BUN in the morning. Right now, we will start with 2.5 b.i.d and will follow with you. Jimmy Kidd MD
[2018-09-18] MEDS: Albuterol-Ipratrop 3 mg / 0.5 (3 ml) UD IH SCH ×4 (01:40→19:24)
[2018-09-18] MEDS: Pantoprazole 40 mg EC Tab PO SCH (05:06)
[2018-09-18 06:31] LABS: BASO # 0.01 K/mm3 (0.0-2.0); BASO % 0.1 % (0.0-3.0); GRAN # 7.35 (1.4-6.5); GRAN % 87.7 % (50.0-68.0); HEMOGLOBIN 9.2 g/dL (12.0-16.0); LYMPH # 0.9 (1.2-3.4); LYMPH % 10.6 % (22.0-35.0); MEAN CELL VOLUME 89.5 fl (80.0-105.0); MEAN CORPUSCULAR HEMOGLOBIN 28.3 pg (25.0-35.0); MEAN CORPUSCULAR HGB CONC 31.6 g/dl (31.0-37.0); MEAN PLATELET VOLUME 10.4 fl (7.0-11.0); MONO # 0.1 (0.1-0.6); MONO % 1.6 % (1.0-6.0); RBC 3.25 10^6/uL (3.5-6.1); RED CELL DISTRIBUTION WIDTH 16.3 % (11.5-14.5); WHITE BLOOD COUNT 8.4 10^3/uL (4.5-11.0)
[2018-09-18 07:12] LABS: ALBUMIN 3.2 g/dL (3.0-4.8); CALCIUM 8.7 mg/dL (8.4-10.5)
--- NOTE | 2018-09-18 07:50 | CP.PCM.PN ---
Subjective - Date & Time of Evaluation Date of Evaluation: 09/18/18 Time of Evaluation: 06:33 - Subjective Subjective: Awake, alert, denies shortness of breath Reason for consultation and follow up: Cardiac evaluation of atrial fibrillation, history of hypertension, nonischemic cardiomyopathy Seen and examined by me and Dr. Kidd Objective - Vital Signs/Intake and Output Vital Signs (last 24 hours): Temp Pulse Resp BP Pulse Ox 97.3 F L 77 20 154/63 H 98 09/17/18 22:01 09/17/18 22:01 09/17/18 22:01 09/17/18 22:01 09/17/18 22:01 Intake and Output: 09/18/18 09/18/18 06:59 18:59 Intake Total 480 Output Total 300 Balance 180 - Medications Medications: Current Medications Acetaminophen (Tylenol 325mg Tab) 650 mg PO Q4H PRN PRN Reason: Headache Albuterol/Ipratropium (Duoneb 3 Mg/0.5 Mg (3 Ml) Ud) 3 ml IH Q2H PRN PRN Reason: Shortness of Breath Albuterol/Ipratropium (Duoneb 3 Mg/0.5 Mg (3 Ml) Ud) 3 ml IH [id number] [facility] Last Admin: 09/18/18 01:40 Dose: Not Given Apixaban (Eliquis) 2.5 mg PO BID [facility]; Protocol Last Admin: 09/17/18 18:05 Dose: 2.5 mg Aspirin (Ecotrin) 81 mg PO DAILY [facility] Last Admin: 09/17/18 09:00 Dose: 81 mg Atorvastatin Calcium (Lipitor) 10 mg PO 1700 [facility] Last Admin: 09/17/18 18:06 Dose: 10 mg Famotidine (Pepcid) 20 mg PO HS [facility] Last Admin: 09/17/18 21:43 Dose: 20 mg Furosemide (Lasix) 20 mg PO DAILY [facility] Last Admin: 09/17/18 09:00 Dose: 20 mg Guaifenesin/Dextromethorphan (Robitussin Dm) 5 ml PO Q4H PRN PRN Reason: Cough Last Admin: 09/17/18 21:43 Dose: 5 ml Hydralazine HCl (Apresoline) 50 mg PO BID [facility] Last Admin: 09/17/18 18:06 Dose: 50 mg Ceftriaxone Sodium (Rocephin 1 Gram Ivpb) 1 gm in 100 mls @ 100 mls/hr IVPB DAILY [facility]; Protocol Last Admin: 09/17/18 13:42 Dose: 100 mls/hr Azithromycin (Zithromax 500mg In Ns) 500 mg in 250 mls @ 167 mls/hr IVPB DAILY [facility]; Protocol Last Admin: 09/17/18 17:55 Dose: 167 mls/hr Lisinopril (Zestril) 20 mg PO BID [facility] Last Admin: 09/17/18 18:05 Dose: 20 mg Metoprolol Tartrate (Lopressor) 25 mg PO BID [facility] Last Admin: 09/17/18 18:05 Dose: 25 mg Pantoprazole Sodium (Protonix Ec Tab) 40 mg PO 0600 [facility] Last Admin: 09/18/18 05:06 Dose: Not Given Paroxetine HCl (Paxil) 20 mg PO 1800 [facility] Last Admin: 09/17/18 18:56 Dose: 20 mg Zolpidem Tartrate (Ambien) 10 mg PO HS PRN; Protocol PRN Reason: Insomnia Last Admin: 09/17/18 21:43 Dose: 10 mg - Labs Labs: 09/18/18 05:30 09/18/18 05:30 PT 11.8 SECONDS (9.4-12.5) 09/16/18 17:10 INR 1.03 09/16/18 17:10 APTT 24.1 Seconds (25.1-36.5) L 09/16/18 17:10 - Constitutional Appears: Non-toxic, No Acute Distress - Head Exam Head Exam: NORMAL INSPECTION, NORMOCEPHALIC - Eye Exam Eye Exam: Normal appearance Pupil Exam: NORMAL ACCOMODATION - ENT Exam ENT Exam: Mucous Membranes Moist, Normal Exam - Respiratory Exam Respiratory Exam: Decreased Breath Sounds, NORMAL BREATHING PATTERN - Cardiovascular Exam Cardiovascular Exam: +S1, +S2 - GI/Abdominal Exam GI & Abdominal Exam: Soft, Normal Bowel Sounds - Exam Additional comments: hidalgo catheter - Neurological Exam Neurological Exam: Alert, Awake, Oriented x3 - Psychiatric Exam Psychiatric exam: Normal Affect, Normal Mood - Skin Skin Exam: Dry, Normal Color, Warm Assessment and Plan - Assessment and Plan (Free Text) Assessment: A n 83 year old female who came in to the ER due to fever and cough with yellow sputum. History of atrial fibrillation but converted to normal sinus rhythm, hypertension,hyperlipidemia, chronic depression,insomnia, recurrent urinary tract infection, history of urinary bladder dysfunction and self catheterize herself almost 4x a day.right rotator cuff repair, history of cervical cancer post radiation, appendectomy, cholecystectomy. Last cardiac cath 12/28/16 showed LVEF 35-40%, LAD 50-55% stenosis, Non obstructive coronary artery disease, non ischemic cardiomyopathy. Admitted for urinary tract infection. Atrial fibrillation controlled rate and now normal sinus rhythm with APC's. Echo done to evaluate LV function.Pseudogout on right shoulder, Dr. Way aspirated fluid from right shoulder. Plan: Echo done yesterday-LVEF 58%,Aortic valve moderate aortic sclerosis, moderate aortic regurgitation, Transmitral doppler flow pattern Grade II, pseudonormal filling Denies shortness of breath, no distress Heart rate controlled Blood pressure controlled Cardiac status stable On Eliquis 2.5 mg BID,ASA 81 mg daily,Lipitor 10 mg daily, Lasix 20 mg daily, Hydralazine 50 mg BID,Lisinopril 20 mg BID, Metoprolol 25 mg BID Continue antibiotics as ordered by ID Continue current medications Continue current treatment Will follow up Plan and treatment discussed with Dr. Kidd
[2018-09-18] MEDS: cefTRIAXone 1 gm 1 GM/100 ML BAG IVPB SCH (10:15)
--- NOTE | 2018-09-18 10:52 | CP.PCM.APN ---
Subjective - Date & Time of Evaluation Date of Evaluation: 09/18/18 Time of Evaluation: 08:20 - Subjective Subjective: Pt seen and examined at bedside. States she is feeling better. Denies chest pain or shortness of breath. No acute events overnight. Objective - Vital Signs/Intake and Output Vital Signs (last 24 hours): Temp Pulse Resp BP Pulse Ox 97.8 F 95 H 20 134/69 93 L 09/18/18 06:00 09/18/18 10:16 09/18/18 06:00 09/18/18 10:17 09/18/18 06:00 Intake and Output: 09/18/18 09/18/18 06:59 18:59 Intake Total 480 Output Total 300 Balance 180 - Medications Medications: Current Medications Acetaminophen (Tylenol 325mg Tab) 650 mg PO Q4H PRN PRN Reason: Headache Albuterol/Ipratropium (Duoneb 3 Mg/0.5 Mg (3 Ml) Ud) 3 ml IH Q2H PRN PRN Reason: Shortness of Breath Albuterol/Ipratropium (Duoneb 3 Mg/0.5 Mg (3 Ml) Ud) 3 ml IH [id number] [facility] Last Admin: 09/18/18 08:35 Dose: 3 ml Apixaban (Eliquis) 2.5 mg PO BID [facility]; Protocol Last Admin: 09/18/18 10:17 Dose: 2.5 mg Aspirin (Ecotrin) 81 mg PO DAILY [facility] Last Admin: 09/18/18 10:16 Dose: 81 mg Atorvastatin Calcium (Lipitor) 10 mg PO 1700 [facility] Last Admin: 09/17/18 18:06 Dose: 10 mg Famotidine (Pepcid) 20 mg PO HS [facility] Last Admin: 09/17/18 21:43 Dose: 20 mg Furosemide (Lasix) 20 mg PO DAILY [facility] Last Admin: 09/18/18 10:17 Dose: 20 mg Guaifenesin/Dextromethorphan (Robitussin Dm) 5 ml PO Q4H PRN PRN Reason: Cough Last Admin: 09/17/18 21:43 Dose: 5 ml Hydralazine HCl (Apresoline) 50 mg PO BID [facility] Last Admin: 09/18/18 10:16 Dose: 50 mg Ceftriaxone Sodium (Rocephin 1 Gram Ivpb) 1 gm in 100 mls @ 100 mls/hr IVPB DAILY [facility]; Protocol Last Admin: 09/18/18 10:15 Dose: 100 mls/hr Azithromycin (Zithromax 500mg In Ns) 500 mg in 250 mls @ 167 mls/hr IVPB DAILY [facility]; Protocol Last Admin: 09/17/18 17:55 Dose: 167 mls/hr Lisinopril (Zestril) 20 mg PO BID [facility] Last Admin: 09/18/18 10:16 Dose: 20 mg Metoprolol Tartrate (Lopressor) 25 mg PO BID [facility] Last Admin: 09/18/18 10:16 Dose: 25 mg Pantoprazole Sodium (Protonix Ec Tab) 40 mg PO 0600 [facility] Last Admin: 09/18/18 05:06 Dose: Not Given Paroxetine HCl (Paxil) 20 mg PO 1800 [facility] Last Admin: 09/17/18 18:56 Dose: 20 mg Zolpidem Tartrate (Ambien) 10 mg PO HS PRN; Protocol PRN Reason: Insomnia Last Admin: 09/17/18 21:43 Dose: 10 mg - Labs Labs: 09/18/18 05:30 09/18/18 05:30 PT 11.8 SECONDS (9.4-12.5) 09/16/18 17:10 INR 1.03 09/16/18 17:10 APTT 24.1 Seconds (25.1-36.5) L 09/16/18 17:10 - Constitutional Appears: Well, No Acute Distress - Head Exam Head Exam: ATRAUMATIC, NORMAL INSPECTION - Eye Exam Eye Exam: Normal appearance - ENT Exam ENT Exam: Mucous Membranes Moist, Normal Exam - Neck Exam Neck Exam: Full ROM - Respiratory Exam Respiratory Exam: Decreased Breath Sounds - Cardiovascular Exam Cardiovascular Exam: REGULAR RHYTHM, +S1, +S2 - GI/Abdominal Exam GI & Abdominal Exam: Soft, Normal Bowel Sounds - Rectal Exam Rectal Exam: Deferred - Extremities Exam Extremities Exam: Normal Inspection - Neurological Exam Neurological Exam: Alert, Awake, Oriented x3 Assessment and Plan - Assessment and Plan (Free Text) Assessment: Pt is an 83 y.o. female admitted for cough and UTI. Plan: On Rocephin and Zithromax Leukocytosis resolved Add Amiodarone 400mg BID x3days, then 200mg daily per cardio recs Cardio and Uro on board Meds per MAR Physical therapy recommends HWS or TCU SW/CM for dc planning Will continue to follow
[2018-09-18] MEDS: Azithromycin 500MG/NS 250ml 500 MG/250 ML BAG IVPB SCH (11:03)
--- NOTE | 2018-09-18 14:20 | RAD ---
Date of service: 09/17/2018 PROCEDURE: Radiographs of the Right Shoulder HISTORY: rt shoulder pain swelling COMPARISON: No prior. FINDINGS: BONES: There is diffuse bone demineralization without acute displaced fracture or bone destruction. JOINTS: There is superior displacement of humeral head with loss of subacromial space. Bone alignment is normal the acromioclavicular joint is normal. SOFT TISSUES: There is mild periarticular soft tissue swelling. OTHER FINDINGS: None. IMPRESSION: Superior displacement of the humeral head most compatible with chronic rotator cuff injury. No acute displaced fracture or dislocation
--- NOTE | 2018-09-18 17:06 | CP.PCM.PN ---
<Juan José Potter - Last Filed: 09/18/18 17:01> Subjective - Date & Time of Evaluation Date of Evaluation: 09/18/18 Time of Evaluation: 17:01 - Subjective Subjective: Juan José Potter, PGY-1, Internal Medicine Progress Note for Dr. Alvarado Patient seen and evaluated at bedside. Patient had no acute overnight events. Patient is AAOx3 at bedside with daughter at bedside. Patient reports improved symptoms but still have nonproductive cough. Patient has right sided shoulder pain and edema but no erythema and warmth in the area. Patient denies shortness of breath, wheezing, fever, chills, chest pain, nausea, vomiting, constipation, diarrhea, dysuria, and hematuria. 12-point ROS was unremarkable except for what was mentioned above. Objective - Vital Signs/Intake and Output Vital Signs (last 24 hours): Temp Pulse Resp BP Pulse Ox 98.1 F 83 20 136/61 96 09/18/18 15:39 09/18/18 15:39 09/18/18 15:39 09/18/18 15:39 09/18/18 15:39 Intake and Output: 09/18/18 09/18/18 06:59 18:59 Intake Total 480 Output Total 300 Balance 180 - Medications Medications: Current Medications Acetaminophen (Tylenol 325mg Tab) 650 mg PO Q4H PRN PRN Reason: Headache Albuterol/Ipratropium (Duoneb 3 Mg/0.5 Mg (3 Ml) Ud) 3 ml IH Q2H PRN PRN Reason: Shortness of Breath Albuterol/Ipratropium (Duoneb 3 Mg/0.5 Mg (3 Ml) Ud) 3 ml IH [id number] [facility] Last Admin: 09/18/18 13:13 Dose: 3 ml Amiodarone HCl (Cordarone) 200 mg PO DAILY [facility] Amiodarone HCl (Cordarone) 400 mg PO BID [facility] Stop: 09/21/18 12:00 Apixaban (Eliquis) 2.5 mg PO BID [facility]; Protocol Last Admin: 09/18/18 10:17 Dose: 2.5 mg Aspirin (Ecotrin) 81 mg PO DAILY [facility] Last Admin: 09/18/18 10:16 Dose: 81 mg Atorvastatin Calcium (Lipitor) 10 mg PO 1700 [facility] Last Admin: 09/17/18 18:06 Dose: 10 mg Azithromycin (Zithromax) 500 mg PO DAILY [facility] Stop: 09/20/18 10:01 Famotidine (Pepcid) 20 mg PO HS [facility] Last Admin: 09/17/18 21:43 Dose: 20 mg Furosemide (Lasix) 20 mg PO DAILY [facility] Last Admin: 09/18/18 10:17 Dose: 20 mg Guaifenesin/Dextromethorphan (Robitussin Dm) 5 ml PO Q4H PRN PRN Reason: Cough Last Admin: 09/17/18 21:43 Dose: 5 ml Hydralazine HCl (Apresoline) 50 mg PO BID [facility] Last Admin: 09/18/18 10:16 Dose: 50 mg Ceftriaxone Sodium (Rocephin 1 Gram Ivpb) 1 gm in 100 mls @ 100 mls/hr IVPB DAILY [facility]; Protocol Last Admin: 09/18/18 10:15 Dose: 100 mls/hr Lisinopril (Zestril) 20 mg PO BID [facility] Last Admin: 09/18/18 10:16 Dose: 20 mg Metoprolol Tartrate (Lopressor) 25 mg PO BID [facility] Last Admin: 09/18/18 10:16 Dose: 25 mg Pantoprazole Sodium (Protonix Ec Tab) 40 mg PO 0600 [facility] Last Admin: 09/18/18 05:06 Dose: Not Given Paroxetine HCl (Paxil) 20 mg PO 1800 [facility] Last Admin: 09/17/18 18:56 Dose: 20 mg Zolpidem Tartrate (Ambien) 10 mg PO HS PRN; Protocol PRN Reason: Insomnia Last Admin: 09/17/18 21:43 Dose: 10 mg - Labs Labs: 09/18/18 05:30 09/18/18 05:30 PT 11.8 SECONDS (9.4-12.5) 09/16/18 17:10 INR 1.03 09/16/18 17:10 APTT 24.1 Seconds (25.1-36.5) L 09/16/18 17:10 - Constitutional Appears: Well, Non-toxic, No Acute Distress - Head Exam Head Exam: ATRAUMATIC, NORMAL INSPECTION, NORMOCEPHALIC - Eye Exam Eye Exam: EOMI Pupil Exam: PERRL - Neck Exam Neck Exam: Full ROM - Respiratory Exam Respiratory Exam: Clear to Ausculation Bilateral, NORMAL BREATHING PATTERN - Cardiovascular Exam Cardiovascular Exam: REGULAR RHYTHM - GI/Abdominal Exam GI & Abdominal Exam: Soft, Normal Bowel Sounds. absent: Tenderness - Extremities Exam Extremities Exam: Full ROM, Joint Swelling (right shoulder), Normal Capillary Refill - Neurological Exam Neurological Exam: Alert, Awake, CN II-XII Intact, Oriented x3 - Skin Skin Exam: Dry, Intact Assessment and Plan - Assessment and Plan (Free Text) Assessment: 83 year old female with past medical history of atrial fibrillation on eliquis, , HLD, HTN, obesity, uterine cancer status post radiatio nand hysterectomy in 1999, GERD, depression, ESBL UTI, and CKD stage 3 presents with 1 week of cough and yellow sputum, headache, generalized weakness, muscle aches, and subjective fever. Patient was admitted for suspected pneumonia vs. bronchitis and UTI. Plan: Acute Bronchitis vs. Pneumonia -CXR: no acute pulmonary disease -Patient currently has yellow productive cough -Blood culture negative after 24 hours. -Procalcitonin unremarkable. -Influenza negative. -Patient was started on ceftriaxone and azithromycin day 2 for suspected pneumonia. -Supportive therapy for shortness of breath with duonebs as needed with robitussin. Suspected recurrent UTI due to overload incontinence from failed bladder lift procedure -UA: moderate leukocyte esterase, trace bacteria, 15-20 WBC, negative RBC -Negative urine culture -Ceftriaxone is also covering suspected UTI -As per urology recommendations, patient should be discharged with hidalgo and he will remove hidalgo in the office. Patient will then restart intermittent catheterization. If patient has problems, keep indwelling catheter, permanent hidalgo will be placed. Right shoulder edema with unknown etiology -Dr. Bains, Orthopedic surgery, consulted for recommendations -Right shoulder gram stain and wound culture were negative. Synovial fluid showed no growth Paroxysmal Atrial Fibrillation -EKG: sinus rhythm with premature atrial complexes. Nonspecific T wave abnormality with HR: 86 -CHADS-VASC: 3 -Echocardiogram: EF of 57.7%. Moderate TR, moderate pulmonary HTN -Patient is currently not in atrial fibrillation. -As per cardiology, patient was started on amiodarone and eliquis. -TSH: 0.08. Hyperthyroidism possibly the cause of atrial fibrillation. Follow up T4 and T3 levels. Hyperlipidemia -Aspirin, Lipitor 10 mg daily Hypertension -Systolic blood pressure: ranging from 134-144 today -Continue with hydralazine, zestril, metoprolol tartrate History of Depression -Continue with home paxil. GI prophylaxis: protonix DVT prophylaxis: eliquis Patient seen and evaluated with Dr. Alvarado. <Madhav Alvarado - Last Filed: 09/18/18 18:19> Objective - Vital Signs/Intake and Output Vital Signs (last 24 hours): Temp Pulse Resp BP Pulse Ox 98.1 F 73 20 135/72 96 09/18/18 15:39 09/18/18 17:35 09/18/18 15:39 09/18/18 17:36 09/18/18 15:39 Intake and Output: 09/18/18 09/18/18 06:59 18:59 Intake Total 480 Output Total 300 Balance 180 - Medications Medications: Current Medications Acetaminophen (Tylenol 325mg Tab) 650 mg PO Q4H PRN PRN Reason: Headache Albuterol/Ipratropium (Duoneb 3 Mg/0.5 Mg (3 Ml) Ud) 3 ml IH Q2H PRN PRN Reason: Shortness of Breath Albuterol/Ipratropium (Duoneb 3 Mg/0.5 Mg (3 Ml) Ud) 3 ml IH [id number] [facility] Last Admin: 09/18/18 13:13 Dose: 3 ml Amiodarone HCl (Cordarone) 200 mg PO DAILY [facility] Amiodarone HCl (Cordarone) 400 mg PO BID [facility] Stop: 09/21/18 12:00 Last Admin: 09/18/18 17:35 Dose: 400 mg Apixaban (Eliquis) 2.5 mg PO BID [facility]; Protocol Last Admin: 09/18/18 17:36 Dose: 2.5 mg Aspirin (Ecotrin) 81 mg PO DAILY [facility] Last Admin: 09/18/18 10:16 Dose: 81 mg Atorvastatin Calcium (Lipitor) 10 mg PO 1700 [facility] Last Admin: 09/18/18 17:36 Dose: 10 mg Azithromycin (Zithromax) 500 mg PO DAILY [facility] Stop: 09/20/18 10:01 Famotidine (Pepcid) 20 mg PO HS [facility] Last Admin: 09/17/18 21:43 Dose: 20 mg Furosemide (Lasix) 20 mg PO DAILY [facility] Last Admin: 09/18/18 10:17 Dose: 20 mg Guaifenesin/Dextromethorphan (Robitussin Dm) 5 ml PO Q4H PRN PRN Reason: Cough Last Admin: 09/17/18 21:43 Dose: 5 ml Hydralazine HCl (Apresoline) 50 mg PO BID [facility] Last Admin: 09/18/18 17:36 Dose: 50 mg Ceftriaxone Sodium (Rocephin 1 Gram Ivpb) 1 gm in 100 mls @ 100 mls/hr IVPB DAILY [facility]; Protocol Last Admin: 09/18/18 10:15 Dose: 100 mls/hr Lisinopril (Zestril) 20 mg PO BID [facility] Last Admin: 09/18/18 17:36 Dose: 20 mg Metoprolol Tartrate (Lopressor) 25 mg PO BID [facility] Last Admin: 09/18/18 17:36 Dose: 25 mg Pantoprazole Sodium (Protonix Ec Tab) 40 mg PO 0600 [facility] Last Admin: 09/18/18 05:06 Dose: Not Given Paroxetine HCl (Paxil) 20 mg PO 1800 [facility] Last Admin: 09/18/18 17:36 Dose: 20 mg Zolpidem Tartrate (Ambien) 10 mg PO HS PRN; Protocol PRN Reason: Insomnia Last Admin: 09/17/18 21:43 Dose: 10 mg - Labs Labs: 09/18/18 05:30 09/18/18 05:30 PT 11.8 SECONDS (9.4-12.5) 09/16/18 17:10 INR 1.03 09/16/18 17:10 APTT 24.1 Seconds (25.1-36.5) L 09/16/18 17:10 Attending/Attestation - Attestation I have personally seen and examined this patient.: Yes I have fully participated in the care of the patient.: Yes I have reviewed all pertinent clinical information, including history, physical exam and plan: Yes Notes (Text): Patient seen and examined with the residents, agree with above Clinically improving, cough better. Continue with Abx Serbian translation provided by RN at bedside.
--- NOTE | 2018-09-18 21:40 | CARD ---
APPROVED REPORT Date of service: 09/18/2018 EKG Measurement Heart [id number] <Conclusion> Sinus rhythm with premature atrial complexes with aberrant conduction Otherwise normal ECG
[2018-09-18] MEDS: guaiFENesin DM 100 mg-10 mg/5 ml UD PO PRN (21:45)
[2018-09-19] MEDS: Albuterol-Ipratrop 3 mg / 0.5 (3 ml) UD IH SCH ×3 (01:36→13:18)
[2018-09-19] MEDS: Pantoprazole 40 mg EC Tab PO SCH (06:08)
--- NOTE | 2018-09-19 06:37 | CP.PCM.PN ---
Subjective - Date & Time of Evaluation Date of Evaluation: 09/19/18 Time of Evaluation: 06:10 - Subjective Subjective: Lying in bed, no distress, awake Reason for consultation and follow up: Cardiac evaluation of atrial fibrillation, history of hypertension, nonischemic cardiomyopathy Seen and examined by me and Dr. Kidd Objective - Vital Signs/Intake and Output Vital Signs (last 24 hours): Temp Pulse Resp BP Pulse Ox 97.3 F L 78 20 162/76 H 93 L 09/18/18 21:52 09/18/18 21:52 09/18/18 21:52 09/18/18 21:52 09/18/18 21:52 Intake and Output: 09/18/18 09/19/18 18:59 06:59 Intake Total 240 Output Total 1200 Balance -960 - Medications Medications: Current Medications Acetaminophen (Tylenol 325mg Tab) 650 mg PO Q4H PRN PRN Reason: Headache Albuterol/Ipratropium (Duoneb 3 Mg/0.5 Mg (3 Ml) Ud) 3 ml IH Q2H PRN PRN Reason: Shortness of Breath Albuterol/Ipratropium (Duoneb 3 Mg/0.5 Mg (3 Ml) Ud) 3 ml IH [id number] [facility] Last Admin: 09/19/18 01:36 Dose: 3 ml Amiodarone HCl (Cordarone) 200 mg PO DAILY [facility] Amiodarone HCl (Cordarone) 400 mg PO BID [facility] Stop: 09/21/18 12:00 Last Admin: 09/18/18 17:35 Dose: 400 mg Apixaban (Eliquis) 2.5 mg PO BID [facility]; Protocol Last Admin: 09/18/18 17:36 Dose: 2.5 mg Aspirin (Ecotrin) 81 mg PO DAILY [facility] Last Admin: 09/18/18 10:16 Dose: 81 mg Atorvastatin Calcium (Lipitor) 10 mg PO 1700 [facility] Last Admin: 09/18/18 17:36 Dose: 10 mg Azithromycin (Zithromax) 500 mg PO DAILY [facility] Stop: 09/20/18 10:01 Cefpodoxime Proxetil (Vantin) 200 mg PO Q12 [facility] Famotidine (Pepcid) 20 mg PO HS [facility] Last Admin: 09/19/18 06:18 Dose: 20 mg Furosemide (Lasix) 20 mg PO DAILY [facility] Last Admin: 09/18/18 10:17 Dose: 20 mg Guaifenesin/Dextromethorphan (Robitussin Dm) 5 ml PO Q4H PRN PRN Reason: Cough Last Admin: 09/18/18 21:45 Dose: 5 ml Hydralazine HCl (Apresoline) 50 mg PO BID [facility] Last Admin: 09/18/18 17:36 Dose: 50 mg Lisinopril (Zestril) 20 mg PO BID [facility] Last Admin: 09/18/18 17:36 Dose: 20 mg Metoprolol Tartrate (Lopressor) 25 mg PO BID [facility] Last Admin: 09/18/18 17:36 Dose: 25 mg Pantoprazole Sodium (Protonix Ec Tab) 40 mg PO 0600 [facility] Last Admin: 09/19/18 06:08 Dose: Not Given Paroxetine HCl (Paxil) 20 mg PO 1800 [facility] Last Admin: 09/18/18 17:36 Dose: 20 mg Zolpidem Tartrate (Ambien) 10 mg PO HS PRN; Protocol PRN Reason: Insomnia Last Admin: 09/18/18 21:45 Dose: 10 mg - Labs Labs: 09/18/18 05:30 09/18/18 05:30 PT 11.8 SECONDS (9.4-12.5) 09/16/18 17:10 INR 1.03 09/16/18 17:10 APTT 24.1 Seconds (25.1-36.5) L 09/16/18 17:10 - Constitutional Appears: Non-toxic, No Acute Distress - Head Exam Head Exam: NORMAL INSPECTION, NORMOCEPHALIC - Eye Exam Eye Exam: Normal appearance Pupil Exam: NORMAL ACCOMODATION - ENT Exam ENT Exam: Mucous Membranes Moist, Normal Exam - Respiratory Exam Respiratory Exam: Decreased Breath Sounds, NORMAL BREATHING PATTERN - Cardiovascular Exam Cardiovascular Exam: +S1, +S2 - GI/Abdominal Exam GI & Abdominal Exam: Soft, Normal Bowel Sounds - Exam Additional comments: hidalgo catheter - Extremities Exam Extremities Exam: Full ROM, Normal Capillary Refill - Neurological Exam Neurological Exam: Alert, Awake - Psychiatric Exam Psychiatric exam: Normal Affect, Normal Mood - Skin Skin Exam: Dry, Normal Color, Warm Assessment and Plan - Assessment and Plan (Free Text) Assessment: A n 83 year old female who came in to the ER due to fever and cough with yellow sputum. History of atrial fibrillation but converted to normal sinus rhythm, hypertension,hyperlipidemia, chronic depression,insomnia, recurrent urinary tract infection, history of urinary bladder dysfunction and self catheterize herself almost 4x a day.right rotator cuff repair, history of cervical cancer post radiation, appendectomy, cholecystectomy. Last cardiac cath 12/28/16 showed LVEF 35-40%, LAD 50-55% stenosis, Non obstructive coronary artery disease, non ischemic cardiomyopathy. Admitted for urinary tract infection. Atrial fibrillation controlled rate and now normal sinus rhythm with APC's. done Pseudogout on right shoulder, Dr. Way aspirated fluid from right shoulder.Echo done yesterday-LVEF 58%,Aortic valve moderate aortic sclerosis, moderate aortic regurgitation, Transmitral doppler flow pattern Grade II, pseudonormal filling. Plan: Denies shortness of breath, no distress Heart rate controlled Blood pressure controlled Cardiac status stable On Eliquis 2.5 mg BID,ASA 81 mg daily,Lipitor 10 mg daily, Lasix 20 mg daily, Hydralazine 50 mg BID,Lisinopril 20 mg BID, Metoprolol 25 mg BID, Amiodarone 400 mg BID x 3 days then 200 mg daily Started Amiodarone yesterday for EKG NSR with PAC's Continue antibiotics as ordered by ID Continue current medications Continue current treatment Will follow up Plan and treatment discussed with Dr. Kidd
[2018-09-19 07:02] LABS: BASO # 0.03 K/mm3 (0.0-2.0); BASO % 0.2 % (0.0-3.0); EOS # 0.1 (0.0-0.7); EOS % 0.6 % (1.5-5.0); GRAN # 10.71 (1.4-6.5); HEMOGLOBIN 8.6 g/dL (12.0-16.0); LYMPH # 1.6 (1.2-3.4); LYMPH % 12.2 % (22.0-35.0); MEAN CELL VOLUME 89.5 fl (80.0-105.0); MEAN CORPUSCULAR HEMOGLOBIN 28.2 pg (25.0-35.0); MEAN CORPUSCULAR HGB CONC 31.5 g/dl (31.0-37.0); MEAN PLATELET VOLUME 10.3 fl (7.0-11.0); MONO # 0.8 (0.1-0.6); RBC 3.05 10^6/uL (3.5-6.1); RED CELL DISTRIBUTION WIDTH 16.5 % (11.5-14.5); WHITE BLOOD COUNT 13.2 10^3/uL (4.5-11.0)
[2018-09-19 07:07] LABS: FREE T4 1.26 ng/dL (0.78-2.19)
[2018-09-19 07:22] LABS: ALBUMIN 2.9 g/dL (3.0-4.8); CALCIUM 8.5 mg/dL (8.4-10.5)
[2018-09-19 07:52] VITALS: RESP 18; TEMP 97.5; O2SAT 96
--- NOTE | 2018-09-19 08:20 | PN ---
DATE: 09/18/2018 ADDENDUM TO PROGRESS NOTE LOCATION: Room 563, bed 1. REASON FOR CONSULTATION: Follow up of fever, cough, atrial fibrillation, hypertension, nonischemic cardiomyopathy, nonobstructive coronary artery disease. Cath on 12/28/2016 showed ejection fraction 35-40% with LAD 50-55% stenosis. Other vessels did not show any significant obstruction. SUBJECTIVE: The patient's cough and shortness of breath is better. The patient denies any chest pain or palpitation. The patient has bursitis with fluid collection on the right shoulder, which has been aspirated and the patient's shoulder pain feels better. PHYSICAL EXAMINATION: VITAL SIGNS: Blood pressure 134/69, respirations 20, pulse 95, temperature 97.8. HEENT: Head is normocephalic. Eyes, pupils normal. Conjunctivae slightly pale. NECK: JVP low. Carotid equal. THORAX: AP diameter normal. LUNGS: No rales. CARDIOVASCULAR: S1, S2. ABDOMEN: Soft, nontender. No organomegaly. Bowel sounds normal. EXTREMITIES: No clubbing. No cyanosis. LABORATORY DATA: WBC 8.4, hemoglobin 9.2, hematocrit 29.1, platelets 264. Sodium 141, potassium 4.5, BUN 22, creatinine 1.1, calcium 8.7, phosphorus 3.6, magnesium 2.0. AST and ALT normal. Total protein and albumin normal. TSH is 0.08. DIAGNOSES: Respiratory tract infection, fever, atrial fibrillation. EKG by computer read out say sinus rhythm, but actually, the atrial fibrillation is not sinus rhythm, so I am going to repeat the EKG again today. The patient had history of atrial fibrillation on previous admission, but it is converted to sinus outpatient, on this admission again found to be in atrial fibrillation, hypertension, nonischemic cardiomyopathy as mentioned in the cath report above. The patient has bladder dysfunction and catheterize herself. Right shoulder bursitis with fluid collection, which has been drained. PLAN: Plan is that the patient on Eliquis 2.5 b.i.d. was started. The patient also on Lopressor. I am going to add amiodarone 400 mg b.i.d. for 3 days, then 200 mg daily. Try to convert back to sinus rhythm. TSH is low, so we will repeat T3 and free T4 and TSH in the morning. We will continue to follow. Jimmy Kidd MD (Delete this signature block when dictator is a preceptor.)
--- NOTE | 2018-09-19 09:44 | CP.PCM.APN ---
Subjective - Date & Time of Evaluation Date of Evaluation: 09/19/18 Time of Evaluation: 08:10 - Subjective Subjective: Pt seen and examined at bedside. +sob on exertion and chest discomfort when coughing. States that she feels a little better. Objective - Vital Signs/Intake and Output Vital Signs (last 24 hours): Temp Pulse Resp BP Pulse Ox 97.5 F L 80 18 186/80 H 96 09/19/18 06:00 09/19/18 06:00 09/19/18 06:00 09/19/18 06:00 09/19/18 06:00 Intake and Output: 09/19/18 09/19/18 06:59 18:59 Intake Total 240 Output Total 1200 Balance -960 - Medications Medications: Current Medications Acetaminophen (Tylenol 325mg Tab) 650 mg PO Q4H PRN PRN Reason: Headache Albuterol/Ipratropium (Duoneb 3 Mg/0.5 Mg (3 Ml) Ud) 3 ml IH Q2H PRN PRN Reason: Shortness of Breath Albuterol/Ipratropium (Duoneb 3 Mg/0.5 Mg (3 Ml) Ud) 3 ml IH [id number] [facility] Last Admin: 09/19/18 07:40 Dose: 3 ml Amiodarone HCl (Cordarone) 200 mg PO DAILY [facility] Amiodarone HCl (Cordarone) 400 mg PO BID [facility] Stop: 09/21/18 12:00 Last Admin: 09/18/18 17:35 Dose: 400 mg Apixaban (Eliquis) 2.5 mg PO BID [facility]; Protocol Last Admin: 09/18/18 17:36 Dose: 2.5 mg Aspirin (Ecotrin) 81 mg PO DAILY [facility] Last Admin: 09/18/18 10:16 Dose: 81 mg Atorvastatin Calcium (Lipitor) 10 mg PO 1700 [facility] Last Admin: 09/18/18 17:36 Dose: 10 mg Azithromycin (Zithromax) 500 mg PO DAILY [facility] Stop: 09/20/18 10:01 Cefpodoxime Proxetil (Vantin) 200 mg PO Q12 [facility] Famotidine (Pepcid) 20 mg PO HS [facility] Last Admin: 09/19/18 06:18 Dose: 20 mg Furosemide (Lasix) 20 mg PO DAILY [facility] Last Admin: 09/18/18 10:17 Dose: 20 mg Guaifenesin/Dextromethorphan (Robitussin Dm) 5 ml PO Q4H PRN PRN Reason: Cough Last Admin: 09/18/18 21:45 Dose: 5 ml Hydralazine HCl (Apresoline) 50 mg PO BID [facility] Last Admin: 09/18/18 17:36 Dose: 50 mg Lisinopril (Zestril) 20 mg PO BID [facility] Last Admin: 09/18/18 17:36 Dose: 20 mg Metoprolol Tartrate (Lopressor) 25 mg PO BID [facility] Last Admin: 09/18/18 17:36 Dose: 25 mg Pantoprazole Sodium (Protonix Ec Tab) 40 mg PO 0600 [facility] Last Admin: 09/19/18 06:08 Dose: Not Given Paroxetine HCl (Paxil) 20 mg PO 1800 [facility] Last Admin: 09/18/18 17:36 Dose: 20 mg Zolpidem Tartrate (Ambien) 10 mg PO HS PRN; Protocol PRN Reason: Insomnia Last Admin: 09/18/18 21:45 Dose: 10 mg - Labs Labs: 09/19/18 06:00 09/19/18 06:00 PT 11.8 SECONDS (9.4-12.5) 09/16/18 17:10 INR 1.03 09/16/18 17:10 APTT 24.1 Seconds (25.1-36.5) L 09/16/18 17:10 - Constitutional Appears: Well, No Acute Distress - Head Exam Head Exam: ATRAUMATIC - Eye Exam Eye Exam: Normal appearance - ENT Exam ENT Exam: Mucous Membranes Moist, Normal Exam - Neck Exam Neck Exam: Full ROM - Respiratory Exam Respiratory Exam: Clear to Ausculation Bilateral, NORMAL BREATHING PATTERN - Cardiovascular Exam Cardiovascular Exam: REGULAR RHYTHM, +S1, +S2 - GI/Abdominal Exam GI & Abdominal Exam: Soft, Normal Bowel Sounds - Rectal Exam Rectal Exam: Deferred - Exam Additional comments: + hidalgo draining clear brent urine - Neurological Exam Neurological Exam: Alert, Awake, Oriented x3 Assessment and Plan - Assessment and Plan (Free Text) Assessment: Pt is 83 y.o. female admitted for cough (bronchitis vs pne) and poss UTI. Plan: On PO abx Cardio, Uro, and Ortho on board Meds per MAR Physical therapy recommends hws or tcu Possible discharge today SW/CM for dc planning Will continue to follow
[2018-09-19 09:50] VITALS: BP 146/68; PULSE 83
[2018-09-19] MEDS ORDERED: Cefpodoxime (Vantin) 200 mg Tab PO SCH (10:00)
--- NOTE | 2018-09-19 12:44 | CP.PCM.DIS ---
<Juan José Potter - Last Filed: 09/19/18 12:30> Provider - Provider Date of Admission: 09/16/18 19:40 Attending physician: Albertina Soliman MD Primary care physician: Karly Pacheco MD Consults: 09/16/18 21:56 Cardiology Consult Routine Comment: Consulting Provider: Jimmy Garcia Consulting Physician: Jimmy Garcia Reason for Consult: CHF 09/17/18 01:34 Consult [Physician Consult] Routine Comment: Consulting Provider: Oscar Cuba Consulting Physician: Oscar Cuba Reason for Consult: Urinary retention/UTI 09/17/18 11:07 Consult [Physician Consult] Routine Comment: Consulting Provider: Grant Bains Consulting Physician: Grant Bains Reason for Consult: R should pain, ?bursitis 09/18/18 11:33 Evaluation for TRCU Routine Comment: Physician Instructions: Reason For Exam: tcu eval Time Spent in preparation of Discharge (in minutes): 60 Diagnosis - Discharge Diagnosis (1) UTI (urinary tract infection) Status: Acute (2) Pneumonia Status: Acute Hospital Course - Lab Results Lab Results: Micro Results 09/16/18 18:00 Blood-Venous Blood Culture - Preliminary NO GROWTH AFTER 48 HOURS 09/16/18 17:10 Blood-Venous Blood Culture - Preliminary NO GROWTH AFTER 48 HOURS 09/17/18 14:54 Synovial Fluid Gram Stain - Final 09/17/18 14:54 Synovial Fluid Body Fluid Culture - Preliminary NO GROWTH AFTER 24 HOURS 09/17/18 14:54 Shoulder - Right Gram Stain - Final 09/17/18 14:54 Shoulder - Right Wound Culture - Preliminary NO GROWTH AFTER 24 HOURS 09/16/18 18:45 Urine Urine Culture - Final No Growth (<1,000 CFU/ML) Most Recent Lab Values WBC 13.2 10^3/uL (4.5-11.0) H D 09/19/18 06:00 RBC 3.05 10^6/uL (3.5-6.1) L 09/19/18 06:00 Hgb 8.6 g/dL (12.0-16.0) L 09/19/18 06:00 Hct 27.3 % (36.0-48.0) L 09/19/18 06:00 MCV 89.5 fl (80.0-105.0) 09/19/18 06:00 MCH 28.2 pg (25.0-35.0) 09/19/18 06:00 MCHC 31.5 g/dl (31.0-37.0) 09/19/18 06:00 RDW 16.5 % (11.5-14.5) H 09/19/18 06:00 Plt Count 280 10^3/uL (120.0-450.0) 09/19/18 06:00 MPV 10.3 fl (7.0-11.0) 09/19/18 06:00 Gran % 81.0 % (50.0-68.0) H 09/19/18 06:00 Lymph % (Auto) 12.2 % (22.0-35.0) L 09/19/18 06:00 [place] % (Auto) 6.0 % (1.0-6.0) 09/19/18 06:00 Eos % (Auto) 0.6 % (1.5-5.0) L 09/19/18 06:00 Baso % (Auto) 0.2 % (0.0-3.0) 09/19/18 06:00 Gran # 10.71 (1.4-6.5) H 09/19/18 06:00 Lymph # (Auto) 1.6 (1.2-3.4) 09/19/18 06:00 [place] # (Auto) 0.8 (0.1-0.6) H 09/19/18 06:00 Eos # (Auto) 0.1 (0.0-0.7) 09/19/18 06:00 Baso # (Auto) 0.03 K/mm3 (0.0-2.0) 09/19/18 06:00 PT 11.8 SECONDS (9.4-12.5) 09/16/18 17:10 INR 1.03 09/16/18 17:10 APTT 24.1 Seconds (25.1-36.5) L 09/16/18 17:10 Sodium 135 mmol/L (132-148) 09/19/18 06:00 Potassium 4.3 mmol/L (3.6-5.0) 09/19/18 06:00 Chloride 105 mmol/L (98-107) 09/19/18 06:00 Carbon Dioxide 24 mmol/L (21-33) 09/19/18 06:00 Anion Gap 11 (10-20) 09/19/18 06:00 BUN 31 mg/dL (7-21) H 09/19/18 06:00 Creatinine 1.3 mg/dl (0.7-1.2) H 09/19/18 06:00 Est GFR ( Amer) 48 09/19/18 06:00 Est GFR (Non-Af Amer) 39 09/19/18 06:00 Random Glucose 97 mg/dL (70-110) 09/19/18 06:00 Hemoglobin A1c 6.6 % (4.2-6.5) H 09/18/18 15:00 Calcium 8.5 mg/dL (8.4-10.5) 09/19/18 06:00 Phosphorus 3.6 mg/dL (2.5-4.5) 09/18/18 05:30 Magnesium 2.0 mg/dL (1.7-2.2) 09/18/18 05:30 Iron 31 ug/dL (45-180) L 09/17/18 06:45 TIBC 247 ug/dL (265-497) L 09/17/18 06:45 % Saturation 12 % (20-55) L 09/17/18 06:45 Total Bilirubin 0.2 mg/dL (0.2-1.3) 09/19/18 06:00 AST 33 U/L (14-36) 09/19/18 06:00 ALT 27 U/L (7-56) 09/19/18 06:00 Alkaline Phosphatase 88 U/L (38-126) 09/19/18 06:00 Troponin I 0.02 ng/mL 09/17/18 11:48 NT-Pro-B Natriuret Pep 990 pg/mL (0-450) H 09/16/18 18:00 Total Protein 5.9 g/dL (5.8-8.3) 09/19/18 06:00 Albumin 2.9 g/dL (3.0-4.8) L 09/19/18 06:00 Globulin 3.0 gm/dL 09/19/18 06:00 Albumin/Globulin Ratio 1.0 (1.1-1.8) L 09/19/18 06:00 Procalcitonin 0.07 NG/ML (0.19-0.49) L 09/16/18 18:00 Free T4 1.26 ng/dL (0.78-2.19) 09/19/18 06:00 Thyroxine (T4) 7.1 ug/dL (5.5-11.0) 09/18/18 15:00 Total T3 1.00 ng/mL (0.97-1.69) 09/19/18 06:00 TSH 3rd Generation 0.11 mIU/mL (0.46-4.68) L 09/19/18 06:00 Urine Color Yellow (YELLOW) 09/16/18 18:45 Urine Appearance Sl cloudy (CLEAR) 09/16/18 18:45 Urine pH 6.0 (4.7-8.0) 09/16/18 18:45 Ur Specific Sunflower 1.010 (1.005-1.035) 09/16/18 18:45 Urine Protein Negative mg/dL (<30 mg/dL) 09/16/18 18:45 Urine Glucose (UA) Negative mg/dL (NEGATIVE) 09/16/18 18:45 Urine Ketones Negative mg/dL (NEGATIVE) 09/16/18 18:45 Urine Blood Negative (NEGATIVE) 09/16/18 18:45 Urine Nitrate Negative (NEGATIVE) 09/16/18 18:45 Urine Bilirubin Negative (NEGATIVE) 09/16/18 18:45 Urine Urobilinogen 0.2 E.U./dL (<1 E.U./dL) 09/16/18 18:45 Ur Leukocyte Esterase Moderate Joaquin/uL (NEGATIVE) H 09/16/18 18:45 Urine RBC Negative /hpf (0-2) 09/16/18 18:45 Urine WBC 15 - 20 /hpf (0-6) 09/16/18 18:45 Urine Bacteria Trace (NEG) 09/16/18 18:45 Fluid Type Synovial fluid 09/17/18 14:54 Synovial WBC 282.0 /uL (0.0-150.0) H 09/17/18 14:54 Synovial RBC 2848.0 /uL (0.0-0.0) H 09/17/18 14:54 Synovial Mononuclear 91.1 % (0-0) H 09/17/18 14:54 Synov Polymorphonuclear 8.9 % (0-0) H 09/17/18 14:54 Synovial Fluid Comment Light yellow 09/17/18 14:54 Hepatitis A IgM Ab Negative (NEGATIVE) 09/17/18 11:55 Hep Bs Antigen Negative (NEGATIVE) 09/17/18 11:55 Hep B Core IgM Ab Negative (NEGATIVE) 09/17/18 11:55 Hepatitis C Antibody Negative (NEGATIVE) 09/17/18 11:55 HIV 1&2 Ag/Ab, 4th Gen Nonreactive (Nonreactive) 09/17/18 11:55 Influenza Typ A,B (EIA) Negative for flu a/b (NEGATIVE) 09/16/18 19:10 - Hospital Course Hospital Course: Juan José Potter, PGY-1, Internal Medicine Discharge Summary for Dr. Alvarado 83 year old female with past medical history of atrial fibrillation on eliquis, HLD, HTN, obesity, uterine cancer status post radiation and hysterectomy in 1999, GERD, depression, ESBL UTI, and CKD stage 3 presents with 1 week of cough and yellow sputum, headache, generalized weakness, muscle aches, and subjective fever. Patient was admitted for suspected pneumonia vs. bronchitis and UTI. Chest X ray showed no acute pulmonary disease. Patient complained of yellow productive cough but no fever or leukocytosis. Blood culture was negative. Procalcitonin was negative. Influenza screen was negative. Patient was started on ceftriaxone and azithromycin on 09/17. Patient is on day 3 of antibiotics at this time. Patient was ordered duonebs and robitussin for supportive therapy for shortness of breath. Patient was found to have symptoms of UTI as well as urinanalysis that showed moderate leukocyte esterase, trace bacteria, 15-20 WBC, negative RBC. Negative urine culture was found. Ceftriaxone was also covering possible UTI. 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 Patient currently has hidalgo in place. Patient had right shoulder edema with unknown etiology. Dr. Bains was consulted for recommendations who removed the fluid from her shoulder. Gram stain, wound culture, and synovial fluid showed no growth. Patient has a history of atrial fibrillation. Patient has a CHADS-VASC score of 3. Patient was currently not on anticoagulation on admission. Cardiology, Dr. Kidd, started patient on amiodarone and eliquis. Patient sees Dr. Garcia and was initially on anticoagulation but was stopped because of a GI bleed. Patient does not live with anyone at home, so on discharge, patient was discharged with aspirin 81 mg due to moderate risk of falls and history of bleeding. Upon discharge, patient should follow up with PCP within one week. Patient should take all home medications as prescribed and should complete course of 5 days of antibiotics. As per urology, keep hidalgo inside and hidalgo will be removed upon appointment with urology. Subsequent urinary catheterization should be per formed. Patient should follow up with urology within 2-3 days of discharge. Patient should also follow up with cardiology within 1 week of discharge. Please return to the emergency department if you have any recurring or worsening symptoms. This is a brief summary of the events that occurred during this hospital course. For more information, please refer to hospital documentation. - Date & Time of H&P Date of H&P: 09/13/18 Time of H&P: 20:13 Discharge Exam - Head Exam Head Exam: ATRAUMATIC - Eye Exam Eye Exam: EOMI, PERRL - Respiratory Exam Respiratory Exam: Clear to PA & Lateral, NORMAL BREATHING PATTERN - Cardiovascular Exam Cardiovascular Exam: REGULAR RHYTHM - GI/Abdominal Exam GI & Abdominal Exam: Normal Bowel Sounds, Soft - Extremities Exam Extremities exam: full ROM - Neurological Exam Neurological exam: Alert, CN II-XII Intact, Oriented x3 Discharge Plan - Discharge Medications Prescriptions: RX: Amiodarone HCl 200 mg PO BID 30 Days #60 tablet RX: Amiodarone HCl [Pacerone] 400 mg PO BID 6 Days #12 tablet RX: Aspirin 325 mg PO DAILY #30 tab Cefdinir [Omnicef] 300 mg PO BID 5 Days #10 cap - Follow Up Plan Condition: FAIR Disposition: REHAB FACILITY/REHAB UNIT Instructions: Preventing Falls in the Older Adult, Urinary Tract Infection, Adult (DC), How to Care for Your Hidalgo Catheter, Female, Pneumococcal Conjugate Vaccine (10-Valent), Influenza Virus Vaccine (Inactivated), Dehydration (DC), Dehydration (GEN), Urinary Tract Infection in Women (DC), Urinary Tract Infection in Men (DC), Dysuria (GEN) Additional Instructions: Please follow up with PCP within one week. Please also follow up with cardiology within 1 week. Please follow up with urologist within 2-3 days. Please take all home medications as prescribed. As per urology, keep hidalgo inside and hidalgo will be removed upon appointment with urology. Subsequent urinary catheterization should be performed. Please return to the emergency department if you have any recurring or worsening symptoms. Referrals: Tereso Ferro MD [Staff Provider] - Oscar Cuba MD [Staff Provider] - <Madhav Alvarado - Last Filed: 09/19/18 17:05> Provider - Provider Date of Admission: 09/16/18 19:40 Attending physician: Albertina Soliman MD Primary care physician: Karly Pacheco MD Consults: 09/16/18 21:56 Cardiology Consult Routine Comment: Consulting Provider: Jimmy Garcia Consulting Physician: Jimmy Garcia Reason for Consult: CHF 09/17/18 01:34 Consult [Physician Consult] Routine Comment: Consulting Provider: Oscar Cuba Consulting Physician: Oscar Cuba Reason for Consult: Urinary retention/UTI 09/17/18 11:07 Consult [Physician Consult] Routine Comment: Consulting Provider: Grant Bains Consulting Physician: Grant Bains Reason for Consult: R should pain, ?bursitis 09/18/18 11:33 Evaluation for TRCU Routine Comment: Physician Instructions: Reason For Exam: u eval Hospital Course - Lab Results Lab Results: Micro Results 09/17/18 14:54 Synovial Fluid Gram Stain - Final 09/17/18 14:54 Synovial Fluid Body Fluid Culture - Preliminary NO GROWTH AFTER 2 DAYS 09/17/18 14:54 Shoulder - Right Gram Stain - Final 09/17/18 14:54 Shoulder - Right Wound Culture - Preliminary No growth. 09/16/18 18:00 Blood-Venous Blood Culture - Preliminary NO GROWTH AFTER 48 HOURS 09/16/18 17:10 Blood-Venous Blood Culture - Preliminary NO GROWTH AFTER 48 HOURS 09/16/18 18:45 Urine Urine Culture - Final No Growth (<1,000 CFU/ML) Most Recent Lab Values WBC 13.2 10^3/uL (4.5-11.0) H D 09/19/18 06:00 RBC 3.05 10^6/uL (3.5-6.1) L 09/19/18 06:00 Hgb 8.6 g/dL (12.0-16.0) L 09/19/18 06:00 Hct 27.3 % (36.0-48.0) L 09/19/18 06:00 MCV 89.5 fl (80.0-105.0) 09/19/18 06:00 MCH 28.2 pg (25.0-35.0) 09/19/18 06:00 MCHC 31.5 g/dl (31.0-37.0) 09/19/18 06:00 RDW 16.5 % (11.5-14.5) H 09/19/18 06:00 Plt Count 280 10^3/uL (120.0-450.0) 09/19/18 06:00 MPV 10.3 fl (7.0-11.0) 09/19/18 06:00 Gran % 81.0 % (50.0-68.0) H 09/19/18 06:00 Lymph % (Auto) 12.2 % (22.0-35.0) L 09/19/18 06:00 [place] % (Auto) 6.0 % (1.0-6.0) 09/19/18 06:00 Eos % (Auto) 0.6 % (1.5-5.0) L 09/19/18 06:00 Baso % (Auto) 0.2 % (0.0-3.0) 09/19/18 06:00 Gran # 10.71 (1.4-6.5) H 09/19/18 06:00 Lymph # (Auto) 1.6 (1.2-3.4) 09/19/18 06:00 [place] # (Auto) 0.8 (0.1-0.6) H 09/19/18 06:00 Eos # (Auto) 0.1 (0.0-0.7) 09/19/18 06:00 Baso # (Auto) 0.03 K/mm3 (0.0-2.0) 09/19/18 06:00 PT 11.8 SECONDS (9.4-12.5) 09/16/18 17:10 INR 1.03 09/16/18 17:10 APTT 24.1 Seconds (25.1-36.5) L 09/16/18 17:10 Sodium 135 mmol/L (132-148) 09/19/18 06:00 Potassium 4.3 mmol/L (3.6-5.0) 09/19/18 06:00 Chloride 105 mmol/L (98-107) 09/19/18 06:00 Carbon Dioxide 24 mmol/L (21-33) 09/19/18 06:00 Anion Gap 11 (10-20) 09/19/18 06:00 BUN 31 mg/dL (7-21) H 09/19/18 06:00 Creatinine 1.3 mg/dl (0.7-1.2) H 09/19/18 06:00 Est GFR ( Amer) 48 09/19/18 06:00 Est GFR (Non-Af Amer) 39 09/19/18 06:00 Random Glucose 97 mg/dL (70-110) 09/19/18 06:00 Hemoglobin A1c 6.6 % (4.2-6.5) H 09/18/18 15:00 Calcium 8.5 mg/dL (8.4-10.5) 09/19/18 06:00 Phosphorus 3.6 mg/dL (2.5-4.5) 09/18/18 05:30 Magnesium 2.0 mg/dL (1.7-2.2) 09/18/18 05:30 Iron 31 ug/dL (45-180) L 09/17/18 06:45 TIBC 247 ug/dL (265-497) L 09/17/18 06:45 % Saturation 12 % (20-55) L 09/17/18 06:45 Total Bilirubin 0.2 mg/dL (0.2-1.3) 09/19/18 06:00 AST 33 U/L (14-36) 09/19/18 06:00 ALT 27 U/L (7-56) 09/19/18 06:00 Alkaline Phosphatase 88 U/L (38-126) 09/19/18 06:00 Troponin I 0.02 ng/mL 09/17/18 11:48 NT-Pro-B Natriuret Pep 990 pg/mL (0-450) H 09/16/18 18:00 Total Protein 5.9 g/dL (5.8-8.3) 09/19/18 06:00 Albumin 2.9 g/dL (3.0-4.8) L 09/19/18 06:00 Globulin 3.0 gm/dL 09/19/18 06:00 Albumin/Globulin Ratio 1.0 (1.1-1.8) L 09/19/18 06:00 Procalcitonin 0.07 NG/ML (0.19-0.49) L 09/16/18 18:00 Free T4 1.26 ng/dL (0.78-2.19) 09/19/18 06:00 Thyroxine (T4) 7.1 ug/dL (5.5-11.0) 09/18/18 15:00 Total T3 1.00 ng/mL (0.97-1.69) 09/19/18 06:00 TSH 3rd Generation 0.11 mIU/mL (0.46-4.68) L 09/19/18 06:00 Urine Color Yellow (YELLOW) 09/16/18 18:45 Urine Appearance Sl cloudy (CLEAR) 09/16/18 18:45 Urine pH 6.0 (4.7-8.0) 09/16/18 18:45 Ur Specific [place] 1.010 (1.005-1.035) 09/16/18 18:45 Urine Protein Negative mg/dL (<30 mg/dL) 09/16/18 18:45 Urine Glucose (UA) Negative mg/dL (NEGATIVE) 09/16/18 18:45 Urine Ketones Negative mg/dL (NEGATIVE) 09/16/18 18:45 Urine Blood Negative (NEGATIVE) 09/16/18 18:45 Urine Nitrate Negative (NEGATIVE) 09/16/18 18:45 Urine Bilirubin Negative (NEGATIVE) 09/16/18 18:45 Urine Urobilinogen 0.2 E.U./dL (<1 E.U./dL) 09/16/18 18:45 Ur Leukocyte Esterase Moderate Joaquin/uL (NEGATIVE) H 09/16/18 18:45 Urine RBC Negative /hpf (0-2) 09/16/18 18:45 Urine WBC 15 - 20 /hpf (0-6) 09/16/18 18:45 Urine Bacteria Trace (NEG) 09/16/18 18:45 Fluid Type Synovial fluid 09/17/18 14:54 Synovial WBC 282.0 /uL (0.0-150.0) H 09/17/18 14:54 Synovial RBC 2848.0 /uL (0.0-0.0) H 09/17/18 14:54 Synovial Mononuclear 91.1 % (0-0) H 09/17/18 14:54 Synov Polymorphonuclear 8.9 % (0-0) H 09/17/18 14:54 Synovial Fluid Comment Light yellow 09/17/18 14:54 Hepatitis A IgM Ab Negative (NEGATIVE) 09/17/18 11:55 Hep Bs Antigen Negative (NEGATIVE) 09/17/18 11:55 Hep B Core IgM Ab Negative (NEGATIVE) 09/17/18 11:55 Hepatitis C Antibody Negative (NEGATIVE) 09/17/18 11:55 HIV 1&2 Ag/Ab, 4th Gen Nonreactive (Nonreactive) 09/17/18 11:55 Influenza Typ A,B (EIA) Negative for flu a/b (NEGATIVE) 09/16/18 19:10 Attending/Attestation - Attestation I have personally seen and examined this patient.: Yes I have fully participated in the care of the patient.: Yes I have reviewed all pertinent clinical information, including history, physical exam and plan: Yes Notes (Text): Patient seen and examined with the residents, agree with above Daughter at bedside translating in Monegasque. Had a long discussion with the daughter regarding plan of care and discharge medications Daughter stating patient has a h/o GI bleeding from "ulcers" and was told by cardiology to d/c her OAC in the past for her Afib Will hold off on OAC given her history of bleeding and also as per daughter's request who doesn't feel comfortable with her mother taking OAC as she lives alone and is worried about possible falls and her history of GI bleeding. Will defer to cardiology or her PMD to start any OAC. Continue with ASA
[2018-09-19 23:23] LABS: GLUCOSE,SYNOVIAL FLUID 107 mg/dL
--- NOTE | 2018-09-22 08:13 | PN ---
DATE: 09/19/2018 ADDITIONAL PROGRESS NOTE LOCATION: The patient is in room 560, bed 1. Detailed note has already been written by Connie Poe. This is an additional note. The patient, on admission, although EKG was read as sinus rhythm, but actually EKG is showing atrial fibrillation. On previous admission also, the patient was in atrial fibrillation, then converted to sinus rhythm and now on admission again, patient is in atrial fibrillation, so she is having paroxysmal atrial fibrillation and I repeated EKG yesterday and the patient went back into sinus rhythm. So, we will continue Eliquis 2.5 b.i.d. for 4 weeks, and if the patient stays in sinus rhythm, then can be discontinued. I already put the patient on amiodarone to try to keep her in sinus rhythm and we will continue present therapy. Clinically, the patient still has cough, but is improving. Denies any chest pain. Denies any palpitations. Patient is lying flat in bed at the present moment. I will continue to follow. Jimmy Kidd MD
== END 2018-09-19 18:17 | DRG 699 ==
LOC: ED 15:24 → ERH 19:40 → 5RNO 09-17 00:48
PROVIDERS: ADMIT Internal Medicine; ATTEND Internal Medicine
PROC: 0T9B70Z Drainage of Bladder with Drainage Device, Via Natural or Artificial Opening (ICD-10-PCS; principal; 2018-09-16)
PROC: 0R9J3ZX Drainage of Right Shoulder Joint, Percutaneous Approach, Diagnostic (ICD-10-PCS; 2018-09-17)
PROC: 3E0U33Z Introduction of Anti-inflammatory into Joints, Percutaneous Approach (ICD-10-PCS; 2018-09-17)
PROC: 3E0U3BZ Introduction of Anesthetic Agent into Joints, Percutaneous Approach (ICD-10-PCS; 2018-09-17)
DX: T83.511A Infection and inflammatory reaction due to indwelling urethral catheter, initial encounter (principal); I42.9 Cardiomyopathy, unspecified; N39.0 Urinary tract infection, site not specified; E86.0 Dehydration; I12.9 Hypertensive chronic kidney disease with stage 1 through stage 4 chronic kidney disease, or unspecified chronic kidney disease; N18.3 Chronic kidney disease, stage 3 (moderate); M75.101 Unspecified rotator cuff tear or rupture of right shoulder, not specified as traumatic; M19.011 Primary osteoarthritis, right shoulder; M75.51 Bursitis of right shoulder; M25.411 Effusion, right shoulder; N31.2 Flaccid neuropathic bladder, not elsewhere classified; I48.0 Paroxysmal atrial fibrillation; I25.10 Atherosclerotic heart disease of native coronary artery without angina pectoris; K21.9 Gastro-esophageal reflux disease without esophagitis; F32.9 Major depressive disorder, single episode, unspecified; F41.9 Anxiety disorder, unspecified; E78.5 Hyperlipidemia, unspecified; Z16.12 Extended spectrum beta lactamase (ESBL) resistance; I70.0 Atherosclerosis of aorta; Z85.42 Personal history of malignant neoplasm of other parts of uterus

== ENCOUNTER 2018-09-19 18:19 | Inpatient (IN) | payer OTHER ==
[2018-09-19] MEDS ORDERED: Albuterol-Ipratrop 3 mg / 0.5 (3 ml) UD IH PRN (21:34)
--- NOTE | 2018-09-19 21:38 | CP.PCM.PN ---
<Zeina Scott - Last Filed: 09/19/18 21:36> Subjective - Date & Time of Evaluation Date of Evaluation: 09/19/18 Time of Evaluation: 21:36 - Subjective Subjective: Zeina Scott PGY1 Night Resident Patient's medication list not updated by day medical team upon discharge to TCU. Please verify patient's medications in TCU are correct and up to date. Objective - Vital Signs/Intake and Output Vital Signs (last 24 hours): Temp Pulse Resp BP Pulse Ox 98 F 75 18 122/61 09/19/18 18:34 09/19/18 18:34 09/19/18 18:34 09/19/18 18:34 - Medications Medications: Current Medications Aspirin (Ecotrin) 81 mg PO DAILY [facility] Atorvastatin Calcium (Lipitor) 10 mg PO 1700 [facility] Furosemide (Lasix) 20 mg PO DAILY [facility] Hydralazine HCl (Apresoline) 10 mg PO BID [facility] Lisinopril (Zestril) 20 mg PO DAILY [facility] Metoprolol Tartrate (Lopressor) 25 mg PO BID [facility] Paroxetine HCl (Paxil) 20 mg PO 1800 [facility] Zolpidem Tartrate (Ambien) 5 mg PO HS PRN; Protocol PRN Reason: Insomnia <Dalila Ruiz - Last Filed: 09/20/18 01:48> Objective - Vital Signs/Intake and Output Vital Signs (last 24 hours): Temp Pulse Resp BP Pulse Ox 98 F 75 18 122/61 09/19/18 18:34 09/19/18 18:34 09/19/18 18:34 09/19/18 18:34 - Medications Medications: Current Medications Albuterol/Ipratropium (Duoneb 3 Mg/0.5 Mg (3 Ml) Ud) 3 ml IH Q2H PRN PRN Reason: Shortness of Breath Last Admin: 09/19/18 22:33 Dose: 3 ml Albuterol/Ipratropium (Duoneb 3 Mg/0.5 Mg (3 Ml) Ud) 3 ml IH [id number] [facility] Aspirin (Ecotrin) 81 mg PO DAILY [facility] Atorvastatin Calcium (Lipitor) 10 mg PO 1700 [facility] Azithromycin (Zithromax) 500 mg PO DAILY [facility]; Protocol Cefpodoxime Proxetil (Vantin) 200 mg PO Q12 [facility]; Protocol Last Admin: 09/19/18 22:12 Dose: 200 mg Furosemide (Lasix) 20 mg PO DAILY [facility] Guaifenesin/Dextromethorphan (Robitussin Dm) 5 ml PO Q4H PRN PRN Reason: Cough Last Admin: 09/19/18 22:11 Dose: 5 ml Hydralazine HCl (Apresoline) 10 mg PO BID [facility] Lisinopril (Zestril) 20 mg PO DAILY [facility] Metoprolol Tartrate (Lopressor) 25 mg PO BID [facility] Paroxetine HCl (Paxil) 20 mg PO 1800 [facility] Zolpidem Tartrate (Ambien) 5 mg PO HS PRN; Protocol PRN Reason: Insomnia Last Admin: 09/19/18 22:11 Dose: 5 mg Attending/Attestation - Attestation I have personally seen and examined this patient.: No I have fully participated in the care of the patient.: Yes I have reviewed all pertinent clinical information, including history, physical exam and plan: Yes
[2018-09-19] MEDS: guaiFENesin DM 100 mg-10 mg/5 ml UD PO PRN (22:11)
[2018-09-19] MEDS: Cefpodoxime (Vantin) 200 mg Tab PO SCH (22:12)
[2018-09-20] MEDS: Albuterol-Ipratrop 3 mg / 0.5 (3 ml) UD IH SCH ×4 (01:45→19:44)
[2018-09-20] MEDS: guaiFENesin DM 100 mg-10 mg/5 ml UD PO PRN (05:32)
[2018-09-20] MEDS ORDERED: AMIODARONE HCL 400 MG PO SCH (10:00)
[2018-09-20] MEDS ORDERED: CEFDINIR 300 MG PO SCH (10:00)
[2018-09-20] MEDS: Cefpodoxime (Vantin) 200 mg Tab PO SCH ×2 (10:29→21:19)
--- NOTE | 2018-09-20 12:03 | CP.PCM.HP ---
<Calvin Beatty - Last Filed: 09/20/18 12:58> History of Present Illness - History of Present Illness History of Present Illness: H&P for Hospitalist Service Patient is a 83 year old female with past medical history of atrial fibrillation on eliquis, HLD, HTN, obesity, uterine cancer status post radiation and hysterectomy in 1999, GERD, depression, ESBL UTI, and CKD stage 3 presents with 1 week of cough and yellow sputum, headache, generalized weakness, muscle aches, and subjective fever. Patient was admitted for suspected pneumonia vs. bronchitis and UTI. Patient was started on ceftriaxone and azithromycin on 09/17. Patient is on day 3 of antibiotics at this time. Patient was ordered duonebs and robitussin for supportive therapy for shortness of breath. Patient was found to have symptoms of UTI as well as urinanalysis that showed moderate leukocyte esterase, trace bacteria, 15-20 WBC, negative RBC. Negative urine culture was found. Ceftriaxone was also covering possible UTI. 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 Patient currently has hidalgo in place. Patient had right shoulder edema with unknown etiology. Dr. Bains was consulted for recommendations who removed the fluid from her shoulder. Gram stain, wound culture, and synovial fluid showed no growth. Patient has a history of atrial fibrillation. Patient has a CHADS-VASC score of 3. Patient was currently not on anticoagulation on admission however will be started on eliquis. Patient has been transferred to TCU for further rehabilitation and to regain strength since patient lives at home alone. Case seen and discused with Dr. White Present on Admission - Present on Admission Any Indicators Present on Admission: No Review of Systems - Constitutional Constitutional: absent: Chills, Fever - EENT Ears: absent: Dizziness - Cardiovascular Cardiovascular: absent: Chest Pain, Dyspnea - Respiratory Respiratory: absent: Dyspnea - Gastrointestinal Gastrointestinal: absent: Abdominal Pain, Diarrhea, Nausea, Vomiting - Genitourinary Genitourinary: absent: Dysuria - Neurological Neurological: absent: Confusion, Dizziness - Psychiatric Psychiatric: absent: Anxiety - Endocrine Endocrine: absent: Fatigue Past Patient History - Infectious Disease Hx of Infectious Diseases: None - Past Medical History & Family History Past Medical History?: Yes - Past Social History Smoking Status: Never Smoked - CARDIAC Hx Cardiac Disorders: Yes Hx Hypercholesterolemia: Yes Hx Hypertension: Yes - PULMONARY Hx Respiratory Disorders: No Hx Asthma: No Hx Bronchitis: No Hx Chronic Obstructive Pulmonary Disease (COPD): No Hx Emphysema: No Hx Pneumonia: No Hx Respiratory Aspiration: No Hx Respiratory Tract Infection: No Hx Sleep Apnea: No Hx Tuberculosis: No - NEUROLOGICAL Hx Neurological Disorder: No Hx Alzheimer's Disease: No HX Cerebrovascular Accident: No Hx Dementia: No Hx Dizziness: No Hx Meningitis: No Hx Migraine: No Hx Parkinson's Disease: No Hx Seizures: No Hx Transient Ischemic Attacks (TIA): No - HEENT Hx HEENT Problems: Yes Hx Blind: No Hx Cataracts: Yes Hx Deafness: No Hx Difficulty Chewing: No Hx Epistaxis: No Hx Glaucoma: No Hx Macular Degeneration: No - RENAL Hx Chronic Kidney Disease: No Hx Dialysis: No Hx Kidney Stones: No Hx Neurogenic Bladder: No Hx Pyelonephritis: No Hx Renal (Kidney) Cancer: No Hx Renal Failure: No - ENDOCRINE/METABOLIC Hx Endocrine Disorders: No Hx Adrenal Cancer: No Hx Diabetes Insipidus: No Hx Diabetes Mellitus Type 1: No Hx Diabetes Mellitus Type 2: No Hx Hyperthyroidism: No Hx Hypothyroidism: No Hx Systemic Lupus Erythematosus: No - HEMATOLOGICAL/ONCOLOGICAL Hx Blood Disorders: Yes Hx AIDS: No Hx Anemia: Yes Hx Cancer: No Hx Chemotherapy: No Hx Cirrhosis: No Hx Hemophilia: No Hx Hepatitis A: No Hx Hepatitis B: No Hx Hepatitis C: No Hx Human Immunodeficiency Virus (HIV): No Hx Metastesis: No Hx Shingles: No Hx Sickle Cell Disease: No Hx Unexplained Bleeding: No - INTEGUMENTARY Hx Dermatological Problems: No Hx Basil Cell: No Hx Eczema: No Hx Melanoma: No Hx Psoriasis: No Hx Squamous Cell: No - MUSCULOSKELETAL/RHEUMATOLOGICAL Hx Falls: No - GASTROINTESTINAL Hx Gastrointestinal Disorders: No Hx Colostomy: No Hx Crohn's Disease: No Hx Diverticulitis: No Hx Gall Bladder Disease: No Hx Gastroesophageal Reflux: No Hx Ileostomy: No Hx Liver Failure: No Hx Pancreatitis: No HX Swallowing Problems: No Hx Ulcer: No - GENITOURINARY/GYNECOLOGICAL Hx Reproductive Disorders: No - PSYCHIATRIC Hx Psychophysiologic Disorder: No Hx Anxiety: No Hx Bipolar Disorder: No Hx Depression: No Hx Emotional Abuse: No Hx Hallucinations: No Hx Panic Symptoms: No Hx Paranoia: No Hx Post Traumatic Stress Disorder: No Hx Psychosis: No Hx Physical Abuse: No Hx Schizophrenia: No Hx Sexual Abuse: No - SURGICAL HISTORY Hx Surgeries: Yes Hx Amputation: No Hx Appendectomy: Yes Hx Cardiac Catheterization: No Hx Cholecystectomy: No Hx Coronary Stent: No Hx Gastric Bypass Surgery: No Hx Hysterectomy: No Hx Joint Replacement: Yes Hx Kidney Transplant: No Hx Liver Transplant: No Hx Mastectomy: No Hx Musculoskeletal Surgery: No Hx Open Heart Surgery: No Hx Orthopedic Surgery: No Hx Splenectomy: No Hx Valve Replacement: No - ANESTHESIA Hx Anesthesia: Yes Hx Anesthesia Reactions: No Hx Malignant Hyperthermia: No Meds Allergies/Adverse Reactions: Allergies Allergy/AdvReac Type Severity Reaction Status Date / Time No Known Allergies Allergy Verified 03/20/18 07:20 Physical Exam - Constitutional Appears: Non-toxic - Head Exam Head Exam: ATRAUMATIC, NORMAL INSPECTION, NORMOCEPHALIC - Eye Exam Eye Exam: EOMI, Normal appearance - ENT Exam ENT Exam: Mucous Membranes Moist, Normal Exam - Neck Exam Neck exam: Positive for: Normal Inspection - Respiratory Exam Respiratory Exam: Clear to Auscultation Bilateral, NORMAL BREATHING PATTERN. absent: Rhonchi, Wheezes - Cardiovascular Exam Cardiovascular Exam: +S1, +S2. absent: Tachycardia - GI/Abdominal Exam GI & Abdominal Exam: Normal Bowel Sounds, Soft - Extremities Exam Extremities exam: Positive for: normal inspection - Neurological Exam Neurological exam: Alert, CN II-XII Intact, Oriented x3 - Psychiatric Exam Psychiatric exam: Normal Affect, Normal Mood - Skin Skin Exam: Normal Color, Warm Results - Vital Signs Recent Vital Signs: Last Vital Signs Temp 98 F 09/19/18 18:34 Pulse 64 09/20/18 10:29 Resp 18 09/19/18 18:34 BP 145/60 09/20/18 10:29 Pulse Ox Assessment & Plan - Assessment and Plan (Free Text) Assessment: 83 year old female with past medical history of atrial fibrillation, HLD, HTN, obesity, uterine cancer status post radiatio nand hysterectomy in 1999, GERD, depression, ESBL UTI, and CKD stage 3 presented with 1 week of cough and yellow sputum, headache, generalized weakness, muscle aches, and subjective fever. Patient was admitted for suspected pneumonia vs. bronchitis and UTI. Plan: Acute Bronchitis vs. Pneumonia -Continue with azithromycin and rocephin day 4 Suspected recurrent UTI due to overload incontinence from failed bladder lift procedure -UA: moderate leukocyte esterase, trace bacteria, 15-20 WBC, negative RBC -Negative urine culture -Ceftriaxone is also covering suspected UTI -As per urology recommendations, patient should be discharged with hidalgo and he will remove hidalgo in the office. Patient will then restart intermittent catheterization. If patient has problems, keep indwelling catheter, permanent hidalgo will be placed. Right shoulder edema with unknown etiology -Dr. Bains, Orthopedic surgery, consulted for recommendations -Right shoulder gram stain and wound culture were negative. Synovial fluid showed no growth Paroxysmal Atrial Fibrillation -CHADS-VASC: 3 -Patient currently not in a fib -As per cardiology, patient was started on amiodarone and eliquis. Patient's PMD started Metoprolol 25 BID. Will hold based on HR -TSH: 0.11 follow up thyroid studies reveal no abnormalities Hyperlipidemia -Lipitor 10 mg daily Hypertension -Continue with hydralazine, zestril, metoprolol tartrate History of Depression -Continue with home paxil. GI prophylaxis: protonix DVT prophylaxis: eliquis <Jimmy White - Last Filed: 09/25/18 17:08> Results - Vital Signs Recent Vital Signs: Last Vital Signs Temp 98.5 F 09/24/18 16:00 Pulse 73 09/24/18 16:59 Resp 20 09/24/18 16:00 BP 135/69 09/24/18 17:39 Pulse Ox 94 L 09/24/18 16:59 - Labs Result Diagrams: 09/23/18 07:15 09/23/18 07:15 Attending/Attestation - Attestation I have personally seen and examined this patient.: Yes I have fully participated in the care of the patient.: Yes I have reviewed all pertinent clinical information: Yes Notes (Text): 09/25/18 17:07 Medical record note made by the resident after discussion with my direction and input after the patient was personally seen and examined by me. I have reviewed the chart and agree that the record accurately reflects by personal performance of the history, physical exam, data review, and medical decision-making, in the course for the patient. I have also personally directed the plan of care.
[2018-09-20] MEDS ORDERED: cefTRIAXone 1 gm 1 GM/100 ML BAG IVPB SCH (12:45)
[2018-09-20] MEDS ORDERED: Azithromycin 500MG/NS 250ml 500 MG/250 ML BAG IVPB SCH (13:00)
[2018-09-20] MEDS ORDERED: Pantoprazole 40 mg EC Tab PO STA (16:13)
[2018-09-20 19:10] LABS: URINE BILIRUBIN NEGATIVE (NEGATIVE); URINE BLOOD LARGE (NEGATIVE); URINE GLUCOSE (UA) NEGATIVE (NEGATIVE); URINE LEUKOCYTE ESTERASE SMALL Leu/uL (NEGATIVE); URINE PROTEIN 30 mg/dL (<30 mg/dL); URINE UROBILINOGEN 0.2 E.U./dL (<1 E.U./dL)
[2018-09-20 19:14] LABS: URINE APPEARANCE SL CLOUDY (CLEAR); URINE COLOR YELLOW (YELLOW)
[2018-09-20 19:50] LABS: URINE RBC 20 - 25 /hpf (0-2)
[2018-09-20 19:51] LABS: URINE BACTERIA MOD (NEG)
[2018-09-21] MEDS: Albuterol-Ipratrop 3 mg / 0.5 (3 ml) UD IH SCH ×4 (01:07→19:46)
[2018-09-21] MEDS: guaiFENesin DM 100 mg-10 mg/5 ml UD PO PRN ×2 (05:28→10:01)
[2018-09-21] MEDS ORDERED: Pantoprazole 40 mg EC Tab PO STA (08:58)
[2018-09-21] MEDS: Cefpodoxime (Vantin) 200 mg Tab PO SCH ×2 (10:00→21:04)
[2018-09-21] MEDS: Dextrose 5%/0.45% NS 1,000 ML IV SCH (16:16)
[2018-09-21] MEDS: Lactobacillus Acidophilus 500 MU Cap PO SCH (17:10)
[2018-09-22] MEDS: Albuterol-Ipratrop 3 mg / 0.5 (3 ml) UD IH SCH ×4 (01:02→19:20)
[2018-09-22 06:29] LABS: BASO # 0.06 K/mm3 (0.0-2.0); BASO % 0.4 % (0.0-3.0); EOS # 0.3 (0.0-0.7); EOS % 2.1 % (1.5-5.0); GRAN # 11.07 (1.4-6.5); GRAN % 73.9 % (50.0-68.0); HEMOGLOBIN 10.2 g/dL (12.0-16.0); LYMPH # 2.8 (1.2-3.4); LYMPH % 18.5 % (22.0-35.0); MEAN CELL VOLUME 89.8 fl (80.0-105.0); MEAN CORPUSCULAR HEMOGLOBIN 28.2 pg (25.0-35.0); MEAN CORPUSCULAR HGB CONC 31.4 g/dl (31.0-37.0); MONO # 0.8 (0.1-0.6); MONO % 5.1 % (1.0-6.0); RBC 3.62 10^6/uL (3.5-6.1); RED CELL DISTRIBUTION WIDTH 16.5 % (11.5-14.5)
--- NOTE | 2018-09-22 06:56 | CP.PCM.PN ---
<Regla Dunn L - Last Filed: 09/22/18 16:45> Subjective - Date & Time of Evaluation Date of Evaluation: 09/22/18 Time of Evaluation: 06:55 - Subjective Subjective: Resident Progress Note for Hospitalist Service Patient examined at bedside with daughter present. No acute overnight events. Patient states she has been tolerating physical therapy. Also admits to occasional dry cough. Denies fevers, chills, chest pain, shortness of breath, abdominal pain, diarrhea, dysuria. Objective - Vital Signs/Intake and Output Vital Signs (last 24 hours): Temp Pulse Resp BP Pulse Ox 97.6 F 98 H 16 158/80 H 91 L 09/21/18 17:00 09/21/18 17:00 09/21/18 17:00 09/21/18 18:26 09/21/18 17:00 - Medications Medications: Current Medications Albuterol/Ipratropium (Duoneb 3 Mg/0.5 Mg (3 Ml) Ud) 3 ml IH Q2H PRN PRN Reason: Shortness of Breath Last Admin: 09/19/18 22:33 Dose: 3 ml Albuterol/Ipratropium (Duoneb 3 Mg/0.5 Mg (3 Ml) Ud) 3 ml IH [id number] Last Admin: 09/22/18 01:02 Dose: Not Given Apixaban (Eliquis) 2.5 mg PO BID BONNIE; Protocol Last Admin: 09/21/18 18:26 Dose: 2.5 mg Atorvastatin Calcium (Lipitor) 10 mg PO 1700 BONNIE Last Admin: 09/21/18 17:50 Dose: 10 mg Azithromycin (Zithromax) 500 mg PO DAILY BONNIE; Protocol Last Admin: 09/21/18 10:00 Dose: 500 mg Cefpodoxime Proxetil (Vantin) 200 mg PO Q12 BONNIE; Protocol Last Admin: 09/21/18 21:04 Dose: 200 mg Famotidine (Pepcid) 20 mg PO HS [facility] Last Admin: 09/21/18 21:04 Dose: 20 mg Furosemide (Lasix) 20 mg PO DAILY [facility] Last Admin: 09/21/18 09:59 Dose: 20 mg Guaifenesin/Dextromethorphan (Robitussin Dm) 5 ml PO Q4H PRN PRN Reason: Cough Last Admin: 09/21/18 10:01 Dose: 5 ml Hydralazine HCl (Apresoline) 10 mg PO BID [facility] Last Admin: 09/21/18 18:26 Dose: 10 mg Dextrose/Sodium Chloride (Dextrose 5%/0.45% Ns 1000 Ml) 1,000 mls @ 65 mls/hr IV .[id number] [facility] Last Admin: 09/21/18 16:16 Dose: 65 mls/hr Lactobacillus Acidophilus (Bacid Acidophilus) 1 cap PO BID [facility] Last Admin: 09/21/18 17:10 Dose: 1 cap Lisinopril (Zestril) 20 mg PO DAILY [facility] Last Admin: 09/21/18 10:00 Dose: 20 mg Metoprolol Tartrate (Lopressor) 25 mg PO 0800,1700 [facility] Last Admin: 09/21/18 17:50 Dose: 25 mg Pantoprazole Sodium (Protonix Ec Tab) 40 mg PO 0600 BONNIE Paroxetine HCl (Paxil) 20 mg PO 1800 [facility] Last Admin: 09/21/18 18:26 Dose: 20 mg Zolpidem Tartrate (Ambien) 5 mg PO HS PRN; Protocol PRN Reason: Insomnia Last Admin: 09/21/18 21:04 Dose: 5 mg - Labs Labs: 09/22/18 05:45 - Additional Findings Additional findings: - Constitutional Appears: Non-toxic - Head Exam Head Exam: ATRAUMATIC, NORMAL INSPECTION, NORMOCEPHALIC - Eye Exam Eye Exam: EOMI, Normal appearance - ENT Exam ENT Exam: Mucous Membranes Moist, Normal Exam - Neck Exam Neck exam: Positive for: Normal Inspection - Respiratory Exam Respiratory Exam: Clear to Auscultation Bilateral, NORMAL BREATHING PATTERN. absent: Rhonchi, Wheezes - Cardiovascular Exam Cardiovascular Exam: +S1, +S2. absent: Tachycardia - GI/Abdominal Exam GI & Abdominal Exam: Normal Bowel Sounds, Soft - Extremities Exam Extremities exam: Positive for: normal inspection - Neurological Exam Neurological exam: Alert, CN II-XII Intact, Oriented x3 - Psychiatric Exam Psychiatric exam: Normal Affect, Normal Mood - Skin Skin Exam: Normal Color, Warm Assessment and Plan - Assessment and Plan (Free Text) Assessment: 83 year old female with past medical history of atrial fibrillation, HLD, HTN, obesity, uterine cancer status post radiatio nand hysterectomy in 1999, GERD, depression, ESBL UTI, and CKD stage 3 presented with 1 week of cough and yellow sputum, headache, generalized weakness, muscle aches, and subjective fever. Patient was admitted for suspected pneumonia vs. bronchitis and UTI. Plan: Acute Bronchitis vs. Pneumonia - Azithromycin 500 mg PO daily - Cefpodoxime 200 mg PO Q12 - Duonebs Q6H Suspected recurrent UTI - likely due to overload incontinence from failed bladder lift procedure - UA: moderate leukocyte esterase, trace bacteria, 15-20 WBC, negative RBC - UCx negative - Cefpodoxime 200 mg PO Q12 - As per urology recommendations, patient should be discharged with hidalgo and he will remove hidalgo in the office. Patient will then restart intermittent catheterization. If patient has problems, keep indwelling catheter, permanent hidalgo will be placed. Right shoulder edema - Dr. Bains, Orthopedic surgery, consulted. Appreciate recs. - Right shoulder gram stain and wound culture were negative. Synovial fluid showed no growth Paroxysmal Atrial Fibrillation - CHADS-VASC: 3 - As per cardiology, patient was started on amiodarone and eliquis. Patient's PMD started Metoprolol 25 BID. Will hold based on HR. - TSH: 0.11 follow up thyroid studies reveal no abnormalities - Eliquis 2.5 mg PO BID Hyperlipidemia - Lipitor 10 mg PO daily Hypertension - Continue with hydralazine, zestril, metoprolol tartrate History of Depression - Continue with home paxil GI prophylaxis: pepcid DVT prophylaxis: eliquis Case discussed with Dr. Christopher Dunn PGY-1 <Jimmy White - Last Filed: 09/25/18 17:07> Objective - Vital Signs/Intake and Output Vital Signs (last 24 hours): Temp Pulse Resp BP Pulse Ox 98.5 F 73 20 135/69 94 L 09/24/18 16:00 09/24/18 16:59 09/24/18 16:00 09/24/18 17:39 09/24/18 16:59 - Labs Labs: 09/23/18 07:15 09/23/18 07:15 Attending/Attestation - Attestation I have personally seen and examined this patient.: Yes I have fully participated in the care of the patient.: Yes I have reviewed all pertinent clinical information, including history, physical exam and plan: Yes Notes (Text): 09/25/18 17:07 Medical record note made by the resident after discussion with my direction and input after the patient was personally seen and examined by me. I have reviewed the chart and agree that the record accurately reflects by personal performance of the history, physical exam, data review, and medical decision-making, in the course for the patient. I have also personally directed the plan of care.
[2018-09-22 07:19] LABS: CALCIUM 8.7 mg/dL (8.4-10.5)
[2018-09-22] MEDS: Pantoprazole 40 mg EC Tab PO SCH (07:59)
[2018-09-22] MEDS: Dextrose 5%/0.45% NS 1,000 ML IV SCH (08:03)
[2018-09-22] MEDS: Cefpodoxime (Vantin) 200 mg Tab PO SCH ×2 (10:59→21:20)
[2018-09-22] MEDS: Lactobacillus Acidophilus 500 MU Cap PO SCH ×2 (11:02→17:35)
[2018-09-23] MEDS: Albuterol-Ipratrop 3 mg / 0.5 (3 ml) UD IH SCH ×4 (02:02→21:30)
[2018-09-23] MEDS: Pantoprazole 40 mg EC Tab PO SCH (05:54)
[2018-09-23 07:56] LABS: BASO # 0.04 K/mm3 (0.0-2.0); BASO % 0.4 % (0.0-3.0); EOS # 0.3 (0.0-0.7); EOS % 2.6 % (1.5-5.0); GRAN # 7.77 (1.4-6.5); GRAN % 74.7 % (50.0-68.0); HEMOGLOBIN 9.2 g/dL (12.0-16.0); LYMPH # 1.7 (1.2-3.4); LYMPH % 16.4 % (22.0-35.0); MEAN CELL VOLUME 89.8 fl (80.0-105.0); MEAN CORPUSCULAR HEMOGLOBIN 28.4 pg (25.0-35.0); MEAN CORPUSCULAR HGB CONC 31.6 g/dl (31.0-37.0); MEAN PLATELET VOLUME 10.1 fl (7.0-11.0); MONO # 0.6 (0.1-0.6); MONO % 5.9 % (1.0-6.0); RBC 3.24 10^6/uL (3.5-6.1); RED CELL DISTRIBUTION WIDTH 16.6 % (11.5-14.5); WHITE BLOOD COUNT 10.4 10^3/uL (4.5-11.0)
[2018-09-23 08:21] LABS: ALBUMIN 3.1 g/dL (3.0-4.8); CALCIUM 8.6 mg/dL (8.4-10.5)
[2018-09-23] MEDS: Lactobacillus Acidophilus 500 MU Cap PO SCH ×2 (10:07→17:29)
[2018-09-23] MEDS: Cefpodoxime (Vantin) 200 mg Tab PO SCH ×2 (10:08→22:21)
[2018-09-24] MEDS: Albuterol-Ipratrop 3 mg / 0.5 (3 ml) UD IH SCH ×3 (03:30→14:33)
[2018-09-24] MEDS: Pantoprazole 40 mg EC Tab PO SCH (06:52)
[2018-09-24] MEDS: Lactobacillus Acidophilus 500 MU Cap PO SCH ×2 (10:40→17:38)
[2018-09-24] MEDS: Cefpodoxime (Vantin) 200 mg Tab PO SCH (10:49)
--- NOTE | 2018-09-24 12:31 | CP.PCM.DIS ---
<Tarun Hopkins - Last Filed: 09/24/18 14:12> Provider - Provider Date of Admission: 09/19/18 18:19 Attending physician: Albertina Soliman MD Primary care physician: Karly Pacheco MD Time Spent in preparation of Discharge (in minutes): 45 Hospital Course - Lab Results Lab Results: Micro Results 09/22/18 06:30 Stool C. difficile Antigen & Toxins A,B - Final Most Recent Lab Values WBC 10.4 10^3/uL (4.5-11.0) D 09/23/18 07:15 RBC 3.24 10^6/uL (3.5-6.1) L 09/23/18 07:15 Hgb 9.2 g/dL (12.0-16.0) L 09/23/18 07:15 Hct 29.1 % (36.0-48.0) L 09/23/18 07:15 MCV 89.8 fl (80.0-105.0) 09/23/18 07:15 MCH 28.4 pg (25.0-35.0) 09/23/18 07:15 MCHC 31.6 g/dl (31.0-37.0) 09/23/18 07:15 RDW 16.6 % (11.5-14.5) H 09/23/18 07:15 Plt Count 302 10^3/uL (120.0-450.0) 09/23/18 07:15 MPV 10.1 fl (7.0-11.0) 09/23/18 07:15 Gran % 74.7 % (50.0-68.0) H 09/23/18 07:15 Lymph % (Auto) 16.4 % (22.0-35.0) L 09/23/18 07:15 [place] % (Auto) 5.9 % (1.0-6.0) 09/23/18 07:15 Eos % (Auto) 2.6 % (1.5-5.0) 09/23/18 07:15 Baso % (Auto) 0.4 % (0.0-3.0) 09/23/18 07:15 Gran # 7.77 (1.4-6.5) H 09/23/18 07:15 Lymph # (Auto) 1.7 (1.2-3.4) 09/23/18 07:15 [place] # (Auto) 0.6 (0.1-0.6) 09/23/18 07:15 Eos # (Auto) 0.3 (0.0-0.7) 09/23/18 07:15 Baso # (Auto) 0.04 K/mm3 (0.0-2.0) 09/23/18 07:15 Sodium 138 mmol/L (132-148) 09/23/18 07:15 Potassium 3.8 mmol/L (3.6-5.0) 09/23/18 07:15 Chloride 107 mmol/L (98-107) 09/23/18 07:15 Carbon Dioxide 27 mmol/L (21-33) 09/23/18 07:15 Anion Gap 8 (10-20) L 09/23/18 07:15 BUN 22 mg/dL (7-21) H 09/23/18 07:15 Creatinine 1.1 mg/dl (0.7-1.2) 09/23/18 07:15 Est GFR ( Amer) 58 09/23/18 07:15 Est GFR (Non-Af Amer) 48 09/23/18 07:15 Random Glucose 106 mg/dL (70-110) 09/23/18 07:15 Calcium 8.6 mg/dL (8.4-10.5) 09/23/18 07:15 Total Bilirubin 0.4 mg/dL (0.2-1.3) 09/23/18 07:15 AST 19 U/L (14-36) 09/23/18 07:15 ALT 28 U/L (7-56) 09/23/18 07:15 Alkaline Phosphatase 91 U/L (38-126) 09/23/18 07:15 Total Protein 6.1 g/dL (5.8-8.3) 09/23/18 07:15 Albumin 3.1 g/dL (3.0-4.8) 09/23/18 07:15 Globulin 3.0 gm/dL 09/23/18 07:15 Albumin/Globulin Ratio 1.0 (1.1-1.8) L 09/23/18 07:15 Urine Color Yellow (YELLOW) 09/20/18 18:35 Urine Appearance Sl cloudy (CLEAR) 09/20/18 18:35 Urine pH 6.0 (4.7-8.0) 09/20/18 18:35 Ur Specific [place] 1.020 (1.005-1.035) 09/20/18 18:35 Urine Protein 30 mg/dL (<30 mg/dL) H 09/20/18 18:35 Urine Glucose (UA) Negative mg/dL (NEGATIVE) 09/20/18 18:35 Urine Ketones Negative mg/dL (NEGATIVE) 09/20/18 18:35 Urine Blood Large (NEGATIVE) H 09/20/18 18:35 Urine Nitrate Negative (NEGATIVE) 09/20/18 18:35 Urine Bilirubin Negative (NEGATIVE) 09/20/18 18:35 Urine Urobilinogen 0.2 E.U./dL (<1 E.U./dL) 09/20/18 18:35 Ur Leukocyte Esterase Small Joaquin/uL (NEGATIVE) H 09/20/18 18:35 Urine RBC 20 - 25 /hpf (0-2) 09/20/18 18:35 Urine WBC 10 - 15 /hpf (0-6) 09/20/18 18:35 Ur Epithelial Cells 6 - 8 /hpf (0-5) 09/20/18 18:35 Urine Bacteria Mod (NEG) 09/20/18 18:35 - Hospital Course Hospital Course: Patient is a 83 year old female with past medical history of atrial fibrillation on eliquis, HLD, HTN, obesity, uterine cancer status post radiation and hysterectomy in 1999, GERD, depression, ESBL UTI, and CKD stage 3 presents with 1 week of cough and yellow sputum, headache, generalized weakness, muscle aches, and subjective fever. Patient was admitted for suspected pneumonia vs. bronchitis and UTI. Patient was started on ceftriaxone and azithromycin on 09/17. Patient is on day 3 of antibiotics at this time. Patient was ordered duonebs and robitussin for supportive therapy for shortness of breath. Patient was found to have symptoms of UTI as well as urinanalysis that showed moderate leukocyte esterase, trace bacteria, 15-20 WBC, negative RBC. Negative urine culture was found. Ceftriaxone was also covering possible UTI. 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 Patient currently has hidalgo in place. P atient had right shoulder edema with unknown etiology. Dr. Bains was consulted for recommendations who removed the fluid from her shoulder. Gram stain, wound culture, and synovial fluid showed no growth. Patient has a history of atrial fibrillation. Patient has a CHADS-VASC score of 3. Patient was currently not on anticoagulation on admission however will be started on eliquis. Patient was transferred to TCU for further rehabilitation and to regain strength since patient lives at home alone. Patients rehab went well and she improved clinically further. Was dischared on eliquis no aspirin and was told to follow up with urology for removal of hidalgo catheter. Discharge Exam - Head Exam Head Exam: ATRAUMATIC, NORMAL INSPECTION, NORMOCEPHALIC - Eye Exam Eye Exam: EOMI, Normal appearance - Cardiovascular Exam Cardiovascular Exam: REGULAR RHYTHM - GI/Abdominal Exam GI & Abdominal Exam: Normal Bowel Sounds - Neurological Exam Neurological exam: Alert, Oriented x3 Discharge Plan - Discharge Medications Prescriptions: RX: Amiodarone [Cordarone] 200 mg PO DAILY #14 tab RX: Apixaban [Eliquis] 2.5 mg PO BID #14 tab - Follow Up Plan Condition: GOOD Disposition: HOME/ ROUTINE Instructions: Pneumonia in Adults, Depression, High Blood Pressure in Adults, Rheumatoid Arthritis (DC), How to Care for Your Hidalgo Catheter, Female Additional Instructions: Please follow up with Dr. Cuba in office as soon as possible for removal hidalgo catheter. Please follow up with PMD in office as well. Please take medications as directed. Referrals: Karly Barron MD [Primary Care Provider] - <Jimmy White - Last Filed: 09/25/18 17:06> Provider - Provider Date of Admission: 09/19/18 18:19 Attending physician: Albertina Soliman MD Primary care physician: Karly Pacheco MD Hospital Course - Lab Results Lab Results: Micro Results 09/22/18 06:30 Stool C. difficile Antigen & Toxins A,B - Final Most Recent Lab Values WBC 10.4 10^3/uL (4.5-11.0) D 09/23/18 07:15 RBC 3.24 10^6/uL (3.5-6.1) L 09/23/18 07:15 Hgb 9.2 g/dL (12.0-16.0) L 09/23/18 07:15 Hct 29.1 % (36.0-48.0) L 09/23/18 07:15 MCV 89.8 fl (80.0-105.0) 09/23/18 07:15 MCH 28.4 pg (25.0-35.0) 09/23/18 07:15 MCHC 31.6 g/dl (31.0-37.0) 09/23/18 07:15 RDW 16.6 % (11.5-14.5) H 09/23/18 07:15 Plt Count 302 10^3/uL (120.0-450.0) 09/23/18 07:15 MPV 10.1 fl (7.0-11.0) 09/23/18 07:15 Gran % 74.7 % (50.0-68.0) H 09/23/18 07:15 Lymph % (Auto) 16.4 % (22.0-35.0) L 09/23/18 07:15 [place] % (Auto) 5.9 % (1.0-6.0) 09/23/18 07:15 Eos % (Auto) 2.6 % (1.5-5.0) 09/23/18 07:15 Baso % (Auto) 0.4 % (0.0-3.0) 09/23/18 07:15 Gran # 7.77 (1.4-6.5) H 09/23/18 07:15 Lymph # (Auto) 1.7 (1.2-3.4) 09/23/18 07:15 [place] # (Auto) 0.6 (0.1-0.6) 09/23/18 07:15 Eos # (Auto) 0.3 (0.0-0.7) 09/23/18 07:15 Baso # (Auto) 0.04 K/mm3 (0.0-2.0) 09/23/18 07:15 Sodium 138 mmol/L (132-148) 09/23/18 07:15 Potassium 3.8 mmol/L (3.6-5.0) 09/23/18 07:15 Chloride 107 mmol/L (98-107) 09/23/18 07:15 Carbon Dioxide 27 mmol/L (21-33) 09/23/18 07:15 Anion Gap 8 (10-20) L 09/23/18 07:15 BUN 22 mg/dL (7-21) H 09/23/18 07:15 Creatinine 1.1 mg/dl (0.7-1.2) 09/23/18 07:15 Est GFR ( Amer) 58 09/23/18 07:15 Est GFR (Non-Af Amer) 48 09/23/18 07:15 Random Glucose 106 mg/dL (70-110) 09/23/18 07:15 Calcium 8.6 mg/dL (8.4-10.5) 09/23/18 07:15 Total Bilirubin 0.4 mg/dL (0.2-1.3) 09/23/18 07:15 AST 19 U/L (14-36) 09/23/18 07:15 ALT 28 U/L (7-56) 09/23/18 07:15 Alkaline Phosphatase 91 U/L (38-126) 09/23/18 07:15 Total Protein 6.1 g/dL (5.8-8.3) 09/23/18 07:15 Albumin 3.1 g/dL (3.0-4.8) 09/23/18 07:15 Globulin 3.0 gm/dL 09/23/18 07:15 Albumin/Globulin Ratio 1.0 (1.1-1.8) L 09/23/18 07:15 Urine Color Yellow (YELLOW) 09/20/18 18:35 Urine Appearance Sl cloudy (CLEAR) 09/20/18 18:35 Urine pH 6.0 (4.7-8.0) 09/20/18 18:35 Ur Specific [place] 1.020 (1.005-1.035) 09/20/18 18:35 Urine Protein 30 mg/dL (<30 mg/dL) H 09/20/18 18:35 Urine Glucose (UA) Negative mg/dL (NEGATIVE) 09/20/18 18:35 Urine Ketones Negative mg/dL (NEGATIVE) 09/20/18 18:35 Urine Blood Large (NEGATIVE) H 09/20/18 18:35 Urine Nitrate Negative (NEGATIVE) 09/20/18 18:35 Urine Bilirubin Negative (NEGATIVE) 09/20/18 18:35 Urine Urobilinogen 0.2 E.U./dL (<1 E.U./dL) 09/20/18 18:35 Ur Leukocyte Esterase Small Jo[place]quin/uL (NEGATIVE) H 18 18:35 Urine RBC 20 - 25 /hpf (0-2) 1218 18:35 Urine WBC 10 - 15 /hpf (0-6) 18 18:35 Ur Epithelial Cells 6 - 8 /hpf (0-5) 18 18:35 Urine Bacteria Mod (NEG) 09/20/18 18:35 Attending/Attestation - Attestation I have personally seen and examined this patient.: Yes I have fully participated in the care of the patient.: Yes I have reviewed all pertinent clinical information, including history, physical exam and plan: Yes Notes (Text): 09/25/18 17:01 Medical record note made by the resident after discussion with my direction and input after the patient was personally seen and examined by me. I have reviewed the chart and agree that the record accurately reflects by personal performance of the history, physical exam, data review, and medical decision-making, in the course for the patient. I have also personally directed the plan of care. 83 year old female with past medical history of atrial fibrillation on eliquis, HLD, HTN, obesity, uterine cancer status post radiation and hysterectomy in 1999, GERD, depression, ESBL UTI, and CKD stage 3 presents with 1 week of cough and yellow sputum and subjective fever. Patient was admitted to [facility] inpatient for possible and UTI.Cultures were negative for any growth. Patient had right shoulder edema with unknown etiology. Dr. Bains was consulted for recommendations who removed the fluid from her shoulder. Gram stain, wound culture, and synovial fluid showed no growth Patient antibiotics were changed to oral.She was transferred to TCU for rehabilitation. 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 Patient currently has hidalgo in place. Patient will follow up with Urology in the clinic on her scheduled appointment for removal of catheter. Patient has a history of atrial fibrillation. Patient has a CHADS-VASC score of 3. Patient is on anticoagulation with eliquis. Patient will be discharged home and will follow up with PCP/Cardiology and Urology.
[2018-09-24 16:51] VITALS: RESP 20; TEMP 98.5
[2018-09-24 17:10] VITALS: PULSE 73; O2SAT 94
[2018-09-24 17:42] VITALS: BP 135/69
== END 2018-09-24 18:17 | disposition home or self-care (01) | DRG 194 ==
LOC: TRCU 18:19
PROVIDERS: ADMIT Internal Medicine; ATTEND Internal Medicine
PROC: F07Z9FZ Gait Training/Functional Ambulation Treatment using Assistive, Adaptive, Supportive or Protective Equipment (ICD-10-PCS; principal; 2018-09-21)
PROC: F07L6YZ Therapeutic Exercise Treatment of Musculoskeletal System - Lower Back / Lower Extremity using Other Equipment (ICD-10-PCS; 2018-09-21)
PROC: F08Z1FZ Dressing Techniques Treatment using Assistive, Adaptive, Supportive or Protective Equipment (ICD-10-PCS; 2018-09-22)
PROC: F08Z2FZ Grooming/Personal Hygiene Treatment using Assistive, Adaptive, Supportive or Protective Equipment (ICD-10-PCS; 2018-09-24)
DX: J18.9 Pneumonia, unspecified organism (principal); N39.0 Urinary tract infection, site not specified; J20.9 Acute bronchitis, unspecified; I12.9 Hypertensive chronic kidney disease with stage 1 through stage 4 chronic kidney disease, or unspecified chronic kidney disease; N18.3 Chronic kidney disease, stage 3 (moderate); I48.0 Paroxysmal atrial fibrillation; F32.9 Major depressive disorder, single episode, unspecified; E78.00 Pure hypercholesterolemia, unspecified; E78.5 Hyperlipidemia, unspecified; K21.9 Gastro-esophageal reflux disease without esophagitis; Z16.12 Extended spectrum beta lactamase (ESBL) resistance; Z85.42 Personal history of malignant neoplasm of other parts of uterus; Z92.3 Personal history of irradiation; Z79.01 Long term (current) use of anticoagulants

== ENCOUNTER 2018-12-29 14:08 | Inpatient (IN) | payer MEDICARE, OTHER ==
[2018-12-29 14:09] VITALS: PULSE 104
--- NOTE | 2018-12-29 14:51 | ED PDOC ---
Arrival/HPI - General Chief Complaint: Trauma Historian: Patient, Family (daughter) - History of Present Illness Narrative History of Present Illness (Text): 12/29/18 14:51 Emily Young is an 83 year old female, with a past medical history of atrial fibrillation on eliquis, HLD, HTN, obesity, uterine cancer, hysterectomy, GERD, depression, and kidney disease, who presents to the emergency department complaining of fatigue and weakness since 2 days. Patient also informs falling onto her right hip secondary to fatigue and weakness getting out of bed. Patient informs fatigue and weakness is worsened when trying to stand. Patient also informs of headache this morning which has currently resolved in the emergency department. Daughter informs patient has chronic hidalgo for urinary retention changed today and is concerned for urinary tract infection. Patient denies chest pain, shortness of breath, or palpitation. Patient did not hit their head. Patient denies any loss of consciousness, fever, chills, cough, nausea, vomiting, diarrhea, visual changes, neck pain, dysuria, hematuria, frequency, bowel/bladder incontinence or retention, or abdominal pain. Patient denies bodily pain or injury. Time/Duration: < week (2 days) Symptom Onset: Sudden Symptom Course: Unchanged Activities at Onset: Light Context: Home Past Medical History - Provider Review Nursing Documentation Reviewed: Yes - Past History Past History: No Previous - Infectious Disease Hx of Infectious Diseases: None - Past Medical History Past Medical History: No Previous - Cardiac Hx Cardiac Disorders: Yes (Afib (on eliquis)) Hx Cardiac Arrhythmia: Yes Hx Hypertension: Yes - Pulmonary Hx Respiratory Disorders: No Hx Asthma: No Hx Bronchitis: No Hx Chronic Obstructive Pulmonary Disease (COPD): No Hx Emphysema: No Hx Pneumonia: No Hx Respiratory Aspiration: No Hx Respiratory Tract Infection: No Hx Sleep Apnea: No Hx Tuberculosis: No - Neurological Hx Neurological Disorder: No Hx Alzheimer's Disease: No HX Cerebrovascular Accident: No Hx Dementia: No Hx Dizziness: No Hx Meningitis: No Hx Migraine: No Hx Parkinson's Disease: No Hx Seizures: No Hx Transient Ischemic Attacks (TIA): No - HEENT Hx HEENT Disorder: Yes Hx Blind: No Hx Cataracts: Yes Hx Deafness: No Hx Difficulty Chewing: No Hx Epistaxis: No Hx Glaucoma: No Hx Macular Degeneration: No - Renal Hx Renal Disorder: No Hx Dialysis: No Hx Kidney Stones: No Hx Neurogenic Bladder: No Hx Pyelonephritis: No Hx Renal Cancer: No Hx Renal Failure: No - Endocrine/Metabolic Hx Endocrine Disorders: No Hx Adrenal Cancer: No Hx Diabetes Insipidus: No Hx Diabetes Mellitus Type 1: No Hx Diabetes Mellitus Type 2: No Hx Hyperthyroidism: No Hx Hypothyroidism: No Hx Systemic Lupus Erythematosus: No - Hematological/Oncological Hx Blood Disorders: Yes Hx AIDS: No Hx Anemia: Yes Hx Cancer: No Hx Chemotherapy: No Hx Cirrhosis: No Hx Hemophilia: No Hx Hepatitis A: No Hx Hepatitis B: No Hx Hepatitis C: No Hx Metastasis: No Hx Shingles: No Hx Sickle Cell Disease: No Hx Unexplained Bleeding: No Other/Comment: Hyperuricemia - Integumentary Hx Dermatological Disorder: No Hx Basal Cell Carcinoma: No Hx Eczema: No Hx Melanoma: No Hx Psoriasis: No Hx Squamous Cell Carcinoma: No - Musculoskeletal/Rheumatological Hx Arthritis: Yes - Gastrointestinal Hx Gastrointestinal Disorders: No Hx Colostomy: No Hx Crohn's Disease: No Hx Diverticulitis: No Hx Gall Bladder Disease: No Hx Gastroesophageal Reflux: Yes Hx Ileostomy: No Hx Liver Failure: No Hx Pancreatitis: No HX Swallowing Problems: No - Genitourinary/Gynecological Hx Reproductive Disorders: No Other/Comment: + urinary catheter -- Dr Cuba - Psychiatric Hx Psychophysiologic Disorder: No Hx Anxiety: No Hx Bipolar Disorder: No Hx Depression: Yes Hx Emotional Abuse: No Hx Hallucinations: No Hx Panic Disorder: No Hx Post Traumatic Stress Disorder: No Hx Psychosis: No Hx Physical Abuse: No Hx Schizophrenia: No Hx Sexual Abuse: No Hx Substance Use: No - Past Surgical History Past Surgical History: No Previous - Surgical History Hx Amputation: No Hx Appendectomy: Yes Hx Cardiac Catheterization: No Hx Cholecystectomy: No Hx Coronary Stent: No Hx Gastric Bypass Surgery: No Hx Hysterectomy: No Hx Joint Replacement: Yes Hx Kidney Transplant: No Hx Liver Transplant: No Hx Mastectomy: No Hx Musculoskeletal Surgery: No Hx Open Heart Surgery: No Hx Orthopedic Surgery: No Hx Splenectomy: No Hx Valve Replacement: No - Anesthesia Hx Anesthesia: Yes Hx Anesthesia Reactions: No Hx Malignant Hyperthermia: No - Suicidal Assessment Feels Threatened In Home Enviroment: No Family/Social History - Physician Review Nursing Documentation Reviewed: Yes Family/Social History: Unknown Family HX Smoking Status: Never Smoked Hx Alcohol Use: No Hx Substance Use: No Allergies/Home Meds Allergies/Adverse Reactions: Allergies No Known Allergies Allergy (Verified 03/20/18 07:20) Home Medications: Home Meds Medication Instructions Recorded Confirmed Atorvastatin [Lipitor] 10 mg PO 1700 01/17/17 03/20/18 Metoprolol Tartrate [Lopressor] 25 mg PO BID 04/15/17 03/20/18 Lisinopril [Zestril] 20 mg PO DAILY 09/14/17 03/20/18 Esomeprazole Magnesium [Nexium] 40 mg PO DAILY 03/20/18 03/20/18 Furosemide [Lasix] 20 mg PO DAILY 03/20/18 03/20/18 hydrALAZINE [Apresoline] 10 mg PO BID 03/20/18 03/20/18 Review of Systems - Physician Review All systems were reviewed & negative as marked: Yes - Review of Systems Constitutional: Fatigue (fatigue and weakness). absent: Fevers, Other (chills) Eyes: absent: Vision Changes Respiratory: absent: SOB, Cough Cardiovascular: absent: Chest Pain, Palpitations Gastrointestinal: absent: Diarrhea, Nausea, Vomiting, Other (no bowel incontinence or retention) Genitourinary Female: Other (chronic indwelling hidalgo). absent: Dysuria, Frequency (no frequency changes), Hematuria, Urine Output Changes (no bladder incontinence) Musculoskeletal: absent: Neck Pain Neurological: absent: Other (no loss of consciousness) Physical Exam Vital Signs Reviewed: Yes Vital Signs Temp Pulse Resp BP Pulse Ox 12/29/18 14:21 97.7 F 48 L 18 147/63 95 Temperature: Afebrile Blood Pressure: Normal Pulse: Bradycardic Respiratory Rate: Normal Appearance: Positive for: Well-Appearing, Non-Toxic, Comfortable Pain Distress: None Mental Status: Positive for: Alert and Oriented X 3 - Systems Exam Head: Present: Atraumatic, Normocephalic Pupils: Present: PERRL Extroacular Muscles: Present: EOMI Conjunctiva: Present: Normal Mouth: Present: Dry Neck: Present: Normal Range of Motion Respiratory/Chest: Present: Clear to Auscultation, Good Air Exchange. No: Respiratory Distress, Accessory Muscle Use Cardiovascular: Present: Normal S1, S2, Bradycardic. No: Murmurs Abdomen: No: Tenderness, Distention, Peritoneal Signs Genitourinary/Pelvic Exam: Present: Other (hidalgo in place; no blood in urine) Back: Present: Normal Inspection (chronic hidalgo in place; no blood in urine) Upper Extremity: Present: Normal Inspection. No: Cyanosis, Edema Lower Extremity: Present: Normal Inspection, Normal ROM (full ROM lower extremities bilaterally). No: Edema Neurological: Present: GCS=15, CN II-XII Intact, Speech Normal Skin: Present: Warm, Dry, Normal Color. No: Rashes Psychiatric: Present: Alert, Oriented x 3, Normal Insight, Normal Concentration Medical Decision Making ED Course and Treatment: 12/29/18 14:51 Impression: Patient is an 83 year old female who presents to the emergency department for fatigue and weakness since 2 days. Patient also informs falling out of bed this morning secondary to fatigue and weakness. Patient states fatigue is worsened when standing. Patient denies loss of consciousness or head injury. Plan: -- CT Head w/o contrast -- EKG -- Labs -- Chest X-Ray -- IV Fluids -- Reassess and disposition Prior Visits: Notes and results from previous visits were reviewed. Progress Notes: - RAD Interpretation Radiology Orders: 12/29/18 14:30 CHEST PORTABLE [RAD] Stat 12/29/18 14:46 HEAD W/O CONTRAST [CT] Stat 12/29/18 14:49 HIP MIN 2V W/ PELVIS RT [RAD] Stat - EKG Interpretation EKG Interpretation (Text): 12/29/18 14:51 Reviewed EKG, shows: Sinus bradycardia at 50 BPM. Interpreted by ED Physician: Yes Type: 12 lead EKG - Medication Orders Current Medication Orders: Sodium Chloride (Sodium Chloride 0.9%) 1,000 mls @ 75 mls/hr IV .[id number] BONNIE - Scribe Statement The provider has reviewed the documentation as recorded by the Scribe Alexi Bell All medical record entries made by the Scribe were at my direction and personally dictated by me. I have reviewed the chart and agree that the record accurately reflects my personal performance of the history, physical exam, medical decision making, and the department course for this patient. I have also personally directed, reviewed, and agree with the discharge instructions and disposition. Disposition/Present on Arrival - Present on Arrival Any Indicators Present on Arrival: Yes History of DVT/PE: No History of Uncontrolled Diabetes: No Urinary Catheter: Yes (inserted by Dr Cuba) History of Decub. Ulcer: No History Surgical Site Infection Following: None - Disposition Have Diagnosis and Disposition been Completed?: Yes Diagnosis: Elevated troponin, Symptomatic bradycardia Disposition: HOSPITALIZED Disposition Time: 17:05 Condition: GUARDED
--- NOTE | 2018-12-29 15:25 | RAD ---
Date of service: 12/29/2018 HISTORY: weakness - r/o infiltrate COMPARISON: 09/16/2018 FINDINGS: LUNGS: No active pulmonary disease. PLEURA: No significant pleural effusion identified, no pneumothorax apparent. CARDIOVASCULAR: No radiographic findings to suggest acute or significant cardiovascular disease. Atherosclerotic calcifications identified primarily aortic arch. OSSEOUS STRUCTURES: No significant abnormalities. VISUALIZED UPPER ABDOMEN: Normal. OTHER FINDINGS: None. IMPRESSION: No active disease. No significant interval change compared to the prior examination(s).
[2018-12-29] MEDS: Sodium Chloride 0.9% 1,000 ML IV SCH (15:44)
[2018-12-29 15:51] LABS: BASO # 0.02 K/mm3 (0.0-2.0); BASO % 0.2 % (0.0-3.0); EOS % 0.3 % (1.5-5.0); HEMOGLOBIN 11.8 g/dL (12.0-16.0); LYMPH # 1.1 (1.2-3.4); LYMPH % 9.4 % (22.0-35.0); MEAN CELL VOLUME 86.6 fl (80.0-105.0); MEAN CORPUSCULAR HEMOGLOBIN 27.3 pg (25.0-35.0); MEAN CORPUSCULAR HGB CONC 31.5 g/dl (31.0-37.0); MEAN PLATELET VOLUME 10.7 fl (7.0-11.0); MONO # 0.9 (0.1-0.6); MONO % 7.9 % (1.0-6.0); RBC 4.33 10^6/uL (3.5-6.1); RED CELL DISTRIBUTION WIDTH 15.7 % (11.5-14.5); WHITE BLOOD COUNT 11.3 10^3/uL (4.5-11.0)
[2018-12-29 15:54] LABS: ALB/GLOB RATIO 1.1 (1.1-1.8); ALBUMIN 3.4 g/dL (3.0-4.8); CALCIUM 8.9 mg/dL (8.4-10.5)
[2018-12-29 15:55] LABS: INR 1.12; PARTIAL THROMBOPLASTIN TIME 23.3 Seconds (26.9-38.3); PROTHROMBIN TIME 12.4 SECONDS (9.4-12.5)
[2018-12-29 16:05] LABS: TROPONIN I 0.12 ng/mL
[2018-12-29 16:14] LABS: PH,URINE 7.5 (4.7-8.0); URINE BILIRUBIN NEGATIVE (NEGATIVE); URINE BLOOD NEGATIVE (NEGATIVE); URINE GLUCOSE (UA) NEGATIVE (NEGATIVE); URINE LEUKOCYTE ESTERASE MODERATE Leu/uL (NEGATIVE); URINE PROTEIN 30 mg/dL (<30 mg/dL); URINE UROBILINOGEN 0.2 E.U./dL (<1 E.U./dL)
[2018-12-29 16:17] LABS: URINE APPEARANCE SL CLOUDY (CLEAR); URINE COLOR LIGHT YELLOW (YELLOW)
[2018-12-29 16:37] LABS: URINE BACTERIA MANY /hpf; URINE EPITHELIAL CELLS 0 - 2 /hpf (0-5); URINE RBC 0 - 2 /hpf (0-2)
--- NOTE | 2018-12-29 17:06 | CT ---
Date of service: 12/29/2018 PROCEDURE: CT HEAD WITHOUT CONTRAST. HISTORY: weakness r/o ICH COMPARISON: 03/20/2018 TECHNIQUE: Axial computed tomography images were obtained through the head/brain without intravenous contrast. Supplemental Coronal and Sagittal projections created and reviewed. Radiation dose: Total exam DLP = 757.83 mGy-cm. This CT exam was performed using one or more of the following dose reduction techniques: Automated exposure control, adjustment of the mA and/or kV according to patient size, and/or use of iterative reconstruction technique. FINDINGS: HEMORRHAGE: No intracranial hemorrhage. BRAIN: No mass effect or edema. Cortical and cerebellar atrophy, periventricular small vessel disease. VENTRICLES: Unremarkable. No hydrocephalus. CALVARIUM: Unremarkable. PARANASAL SINUSES: Unremarkable as visualized. No significant inflammatory changes. MASTOID AIR CELLS: Unremarkable as visualized. No inflammatory changes. OTHER FINDINGS: None. IMPRESSION: No acute intracranial abnormalities. No significant findings to account for the clinical presentation. No significant interval change compared to the prior examination(s).
--- NOTE | 2018-12-29 17:08 | RAD ---
Date of service: 12/29/2018 PROCEDURE: Pelvis and right hip. HISTORY: s/p fall r/o fx COMPARISON: None TECHNIQUE: Standard protocol for this study/examination. FINDINGS: There are no osseous abnormalities to suggest fracture. The pelvic ring is intact. Preserved femoral-acetabular relationship. Negative study for protrusio, subluxation or dislocation. Degenerative changes: Mild. 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 IMPRESSION: No acute findings related to/ accounting for the clinical presentation. Yes
--- NOTE | 2018-12-29 17:14 | CARD ---
APPROVED REPORT Date of service: 12/29/2018 EKG Measurement Heart [id number] <Conclusion> Sinus bradycardia Left ventricular hypertrophy with repolarization abnormality Abnormal ECG
--- NOTE | 2018-12-29 20:28 | CP.PCM.HP ---
<Wilfrido Kelsey - Last Filed: 12/29/18 20:20> History of Present Illness - History of Present Illness History of Present Illness: Wilfrido Kelsey, PGY1 Medicine H&P for Dr. Clark cc: "weakness and multiple falls for 3 weeks" Patient is a 83 year old Sw[place] Speaking female, with a past medical history of atrial fibrillation on eliquis, HLD, HTN, obesity, uterine cancer s/p hysterectomy (14 years ago), GERD, depression, and kidney disease, who presents to the emergency department complaining of weakness and multiple falls for the past 3 weeks. As per ED, patient informs falling onto her right hip due to weakness getting out of bed. Medical team evaluated patient in the ED. History was obtained from daughter at bedside because of language barrier. Patient has a chronic hidalgo in place for urinary retention. Patient had an initial fall about 3 weeks ago. However, since then, falls have been worsening and have occurred multiple times throughout the day including day and night. She does not endorse any dizziness or lightheadedness. As per daughter, she did not hit her head or have any loss of consciousness. Denies cp, sob, palpitations, n/v/d, fever, chills, urinary frequency/urgency/dysuria. No changes in mental status. Patient is AAOx3. Patient lives alone at home. A full 12 point ROS was conducted and unremarkable except as stated above. PMD: Dr. Miranda Pharm: [facility] ([address]) in [place] PMHx: atrial fibrillation on eliquis, HLD, HTN, obesity, uterine cancer s/p hysterectomy (14 years ago), GERD, depression, and kidney disease PSHx: hysterectomy (14 years ago), gallbladder removal, appendectomy Meds: see DEC Allergies: NKDA SocialHx: lives alone at home. Denies smoking, drinking, drug use. FamHx: mother had CAD. Father had prostate cancer. Present on Admission - Present on Admission Any Indicators Present on Admission: No Review of Systems - Review of Systems All systems: reviewed and no additional remarkable complaints except (as per HPI.) Past Patient History - Infectious Disease Hx of Infectious Diseases: None - Past Medical History & Family History Past Medical History?: Yes - Past Social History Smoking Status: Never Smoked - CARDIAC Hx Cardiac Disorders: Yes (Afib (on eliquis)) Hx Cardia Arrhythmia: Yes Hx Hypertension: Yes - PULMONARY Hx Respiratory Disorders: No Hx Asthma: No Hx Bronchitis: No Hx Chronic Obstructive Pulmonary Disease (COPD): No Hx Emphysema: No Hx Pneumonia: No Hx Respiratory Aspiration: No Hx Respiratory Tract Infection: No Hx Sleep Apnea: No Hx Tuberculosis: No - NEUROLOGICAL Hx Neurological Disorder: No Hx Alzheimer's Disease: No HX Cerebrovascular Accident: No Hx Dementia: No Hx Dizziness: No Hx Meningitis: No Hx Migraine: No Hx Parkinson's Disease: No Hx Seizures: No Hx Transient Ischemic Attacks (TIA): No - HEENT Hx HEENT Problems: Yes Hx Blind: No Hx Cataracts: Yes Hx Deafness: No Hx Difficulty Chewing: No Hx Epistaxis: No Hx Glaucoma: No Hx Macular Degeneration: No - RENAL Hx Chronic Kidney Disease: No Hx Dialysis: No Hx Kidney Stones: No Hx Neurogenic Bladder: No Hx Pyelonephritis: No Hx Renal (Kidney) Cancer: No Hx Renal Failure: No - ENDOCRINE/METABOLIC Hx Endocrine Disorders: No Hx Adrenal Cancer: No Hx Diabetes Insipidus: No Hx Diabetes Mellitus Type 1: No Hx Diabetes Mellitus Type 2: No Hx Hyperthyroidism: No Hx Hypothyroidism: No Hx Systemic Lupus Erythematosus: No - HEMATOLOGICAL/ONCOLOGICAL Hx Blood Disorders: Yes Hx AIDS: No Hx Anemia: Yes Hx Cancer: No Hx Chemotherapy: No Hx Cirrhosis: No Hx Hemophilia: No Hx Hepatitis A: No Hx Hepatitis B: No Hx Hepatitis C: No Hx Metastesis: No Hx Shingles: No Hx Sickle Cell Disease: No Hx Unexplained Bleeding: No Other/Comment: Hyperuricemia - INTEGUMENTARY Hx Dermatological Problems: No Hx Basil Cell: No Hx Eczema: No Hx Melanoma: No Hx Psoriasis: No Hx Squamous Cell: No - MUSCULOSKELETAL/RHEUMATOLOGICAL Hx Arthritis: Yes - GASTROINTESTINAL Hx Gastrointestinal Disorders: No Hx Colostomy: No Hx Crohn's Disease: No Hx Diverticulitis: No Hx Gall Bladder Disease: No Hx Gastroesophageal Reflux: Yes Hx Ileostomy: No Hx Liver Failure: No Hx Pancreatitis: No HX Swallowing Problems: No - GENITOURINARY/GYNECOLOGICAL Hx Reproductive Disorders: No Other/Comment: + urinary catheter -- Dr Cuba - PSYCHIATRIC Hx Psychophysiologic Disorder: No Hx Anxiety: No Hx Bipolar Disorder: No Hx Depression: Yes Hx Emotional Abuse: No Hx Hallucinations: No Hx Panic Symptoms: No Hx Post Traumatic Stress Disorder: No Hx Psychosis: No Hx Physical Abuse: No Hx Schizophrenia: No Hx Sexual Abuse: No Hx Substance Use: No - SURGICAL HISTORY Hx Amputation: No Hx Appendectomy: Yes Hx Cardiac Catheterization: No Hx Cholecystectomy: No Hx Coronary Stent: No Hx Gastric Bypass Surgery: No Hx Hysterectomy: No Hx Joint Replacement: Yes Hx Kidney Transplant: No Hx Liver Transplant: No Hx Mastectomy: No Hx Musculoskeletal Surgery: No Hx Open Heart Surgery: No Hx Orthopedic Surgery: No Hx Splenectomy: No Hx Valve Replacement: No - ANESTHESIA Hx Anesthesia: Yes Hx Anesthesia Reactions: No Hx Malignant Hyperthermia: No Meds Allergies/Adverse Reactions: Allergies Allergy/AdvReac Type Severity Reaction Status Date / Time No Known Allergies Allergy Verified 03/20/18 07:20 Physical Exam - Constitutional Appears: No Acute Distress - Head Exam Head Exam: ATRAUMATIC, NORMAL INSPECTION, NORMOCEPHALIC - Eye Exam Eye Exam: EOMI, Normal appearance Pupil Exam: NORMAL ACCOMODATION - ENT Exam ENT Exam: Mucous Membranes Moist, Normal Exam - Respiratory Exam Respiratory Exam: Clear to Auscultation Bilateral, NORMAL BREATHING PATTERN. absent: Accessory Muscle Use, Chest Wall Tenderness, Rales, Rhonchi, Wheezes, Respiratory Distress - Cardiovascular Exam Cardiovascular Exam: RRR, +S1, +S2 - GI/Abdominal Exam GI & Abdominal Exam: Normal Bowel Sounds, Soft. absent: Distended, Guarding, Rebound, Rigid, Tenderness - Extremities Exam Extremities exam: Positive for: normal capillary refill, normal inspection, pedal pulses present Additional comments: 5/5 motor strength in all distal upper and lower extremities. Sensation is also intact in all extremities. - Back Exam Back exam: NORMAL INSPECTION - Neurological Exam Neurological exam: Alert, CN II-XII Intact, Oriented x3 Additional comments: Sensation is intact. NO focal neuro deficits. - Psychiatric Exam Psychiatric exam: Normal Affect, Normal Mood - Skin Skin Exam: Dry, Intact, Normal Color, Warm Results - Vital Signs Recent Vital Signs: Last Vital Signs Temp 97.7 F 12/29/18 19:46 Pulse 48 L 12/29/18 19:46 Resp 18 12/29/18 19:46 BP 164/70 H 12/29/18 19:46 Pulse Ox 95 12/29/18 19:46 - Labs Result Diagrams: 12/29/18 15:35 12/29/18 15:35 Labs: Laboratory Results - last 24 hr 12/29/18 12/29/18 12/29/18 15:35 15:35 15:35 WBC 11.3 H RBC 4.33 Hgb 11.8 L D Hct 37.5 MCV 86.6 D MCH 27.3 MCHC 31.5 RDW 15.7 H Plt Count 196 MPV 10.7 Neut % (Auto) 82.2 H Lymph % (Auto) 9.4 L Gem % (Auto) 7.9 H Eos % (Auto) 0.3 L Baso % (Auto) 0.2 Lymph # (Auto) 1.1 L Gem # (Auto) 0.9 H Eos # (Auto) 0.0 Baso # (Auto) 0.02 Absolute Neuts (auto) 9.32 H PT 12.4 INR 1.12 APTT 23.3 L Sodium 136 Potassium 4.8 Chloride 107 Carbon Dioxide 23 Anion Gap 11 BUN 62 H Creatinine 1.2 Est GFR ( Amer) 52 Est GFR (Non-Af Amer) 43 Random Glucose 199 H Calcium 8.9 Magnesium 1.8 Total Bilirubin 0.4 AST 21 ALT 24 Alkaline Phosphatase 66 Lactate Dehydrogenase 919 H Total Creatine Kinase 65 Troponin I 0.12 D NT-Pro-B Natriuret Pep 1980 H Total Protein 6.5 Albumin 3.4 Globulin 3.1 Albumin/Globulin Ratio 1.1 Urine Color Urine Appearance Urine pH Ur Specific [place] Urine Protein Urine Glucose (UA) Urine Ketones Urine Blood Urine Nitrate Urine Bilirubin Urine Urobilinogen Ur Leukocyte Esterase Urine RBC Urine WBC Ur Epithelial Cells Urine Bacteria 12/29/18 16:07 WBC RBC Hgb Hct MCV MCH MCHC RDW Plt Count MPV Neut % (Auto) Lymph % (Auto) Gem % (Auto) Eos % (Auto) Baso % (Auto) Lymph # (Auto) Gem # (Auto) Eos # (Auto) Baso # (Auto) Absolute Neuts (auto) PT INR APTT Sodium Potassium Chloride Carbon Dioxide Anion Gap BUN Creatinine Est GFR ( Amer) Est GFR (Non-Af Amer) Random Glucose Calcium Magnesium Total Bilirubin AST ALT Alkaline Phosphatase Lactate Dehydrogenase Total Creatine Kinase Troponin I NT-Pro-B Natriuret Pep Total Protein Albumin Globulin Albumin/Globulin Ratio Urine Color Light yellow Urine Appearance Sl cloudy Urine pH 7.5 Ur Specific [place] 1.015 Urine Protein 30 H Urine Glucose (UA) Negative Urine Ketones Negative Urine Blood Negative Urine Nitrate Negative Urine Bilirubin Negative Urine Urobilinogen 0.2 Ur Leukocyte Esterase Moderate H Urine RBC 0 - 2 Urine WBC 2 - 5 Ur Epithelial Cells 0 - 2 Urine Bacteria Many Assessment & Plan - Assessment and Plan (Free Text) Assessment: Patient is a 83 year old [place] Speaking female, with a past medical history of atrial fibrillation on eliquis, HLD, HTN, obesity, uterine cancer s/p hysterectomy (14 years ago), GERD, depression, and kidney disease, who presents to the emergency department complaining of weakness and multiple falls for the past 3 weeks. Patient also presented with elevated troponins. Patient will be admitted to telemetry. Plan: Weakness and Multiple Falls in the setting of Sinus Bradycardia - Fall precautions - PT evaluation - Cardio is on consult (Dr. Garcia). Follow up recs. - MUGA scan ordered by cardio to evaluate LV function - hold home Lopressor at this time - TSH, Hgb A1c, lipid panel - EKG: HR 50, sinus sonu. No acute ST or T wave changes. - Head CT: negative for bleed - Hip/Pelvis XR: no fractures NSTEMI - trop .12 on admission; trend serial trops - ASA 81mg PO daily - c/w home med lipitor - No ST or T wave changes on EKG - CXR: no acute disease Mild Leukocytosis - Likely reactive; wbc 11.3 - repeat labs in morning - UA: mod LE - f/u UCx - patient has chronic hidalgo catheter in place for retention Dehydration - BUN 62 on admission - c/w IVF NS @ 75 cc/hr - monitor labs Afib on Eliquis - resume home med eliquis - resume home med amiodarone Depression - resume home med paxil 20mg PO daily GERD - resume home med ptx 40 mg PO daily HLD - c/w lipitor home med DVT ppx: eliquis GI ppx: ptx Diet: HHD Dispo: Will monitor patient on telemetry. Further recs from cardio. Requires PT evaluation. Case was discussed and reviewed with Attending Physician, Dr. Clark <Marla Clark - Last Filed: 12/30/18 07:22> Results - Vital Signs Recent Vital Signs: Last Vital Signs Temp 97.8 F 12/30/18 06:00 Pulse 57 L 12/30/18 06:00 Resp 20 12/30/18 06:00 BP 193/83 H 12/30/18 06:00 Pulse Ox 95 12/30/18 06:00 - Labs Result Diagrams: 12/30/18 06:30 12/29/18 15:35 Labs: Laboratory Results - last 24 hr 12/29/18 12/29/18 12/29/18 14:23 15:35 15:35 WBC 11.3 H RBC 4.33 Hgb 11.8 L D Hct 37.5 MCV 86.6 D MCH 27.3 MCHC 31.5 RDW 15.7 H Plt Count 196 MPV 10.7 Neut % (Auto) 82.2 H Lymph % (Auto) 9.4 L Gem % (Auto) 7.9 H Eos % (Auto) 0.3 L Baso % (Auto) 0.2 Lymph # (Auto) 1.1 L Gem # (Auto) 0.9 H Eos # (Auto) 0.0 Baso # (Auto) 0.02 Absolute Neuts (auto) 9.32 H PT 12.4 INR 1.12 APTT 23.3 L Sodium Potassium Chloride Carbon Dioxide Anion Gap BUN Creatinine Est GFR ( Amer) Est GFR (Non-Af Amer) POC Glucose (mg/dL) 199 H Random Glucose Calcium Magnesium Total Bilirubin AST ALT Alkaline Phosphatase Lactate Dehydrogenase Total Creatine Kinase Troponin I NT-Pro-B Natriuret Pep Total Protein Albumin Globulin Albumin/Globulin Ratio Urine Color Urine Appearance Urine pH Ur Specific [place] Urine Protein Urine Glucose (UA) Urine Ketones Urine Blood Urine Nitrate Urine Bilirubin Urine Urobilinogen Ur Leukocyte Esterase Urine RBC Urine WBC Ur Epithelial Cells Urine Bacteria 12/29/18 12/29/18 12/30/18 15:35 16:07 00:30 WBC RBC Hgb Hct MCV MCH MCHC RDW Plt Count MPV Neut % (Auto) Lymph % (Auto) Gem % (Auto) Eos % (Auto) Baso % (Auto) Lymph # (Auto) Gem # (Auto) Eos # (Auto) Baso # (Auto) Absolute Neuts (auto) PT INR APTT Sodium 136 Potassium 4.8 Chloride 107 Carbon Dioxide 23 Anion Gap 11 BUN 62 H Creatinine 1.2 Est GFR ( Amer) 52 Est GFR (Non-Af Amer) 43 POC Glucose (mg/dL) Random Glucose 199 H Calcium 8.9 Magnesium 1.8 Total Bilirubin 0.4 AST 21 ALT 24 Alkaline Phosphatase 66 Lactate Dehydrogenase 919 H Total Creatine Kinase 65 Troponin I 0.12 D 0.09 D NT-Pro-B Natriuret Pep 1980 H Total Protein 6.5 Albumin 3.4 Globulin 3.1 Albumin/Globulin Ratio 1.1 Urine Color Light yellow Urine Appearance Sl cloudy Urine pH 7.5 Ur Specific [place] 1.015 Urine Protein 30 H Urine Glucose (UA) Negative Urine Ketones Negative Urine Blood Negative Urine Nitrate Negative Urine Bilirubin Negative Urine Urobilinogen 0.2 Ur Leukocyte Esterase Moderate H Urine RBC 0 - 2 Urine WBC 2 - 5 Ur Epithelial Cells 0 - 2 Urine Bacteria Many 12/30/18 06:30 WBC 8.5 D RBC 4.01 Hgb 10.8 L Hct 34.4 L MCV 85.8 MCH 26.9 MCHC 31.4 RDW 15.7 H Plt Count 146 MPV 10.3 Neut % (Auto) 80.8 H Lymph % (Auto) 11.2 L Gem % (Auto) 7.4 H Eos % (Auto) 0.4 L Baso % (Auto) 0.2 Lymph # (Auto) 1.0 L Gem # (Auto) 0.6 Eos # (Auto) 0.0 Baso # (Auto) 0.02 Absolute Neuts (auto) 6.90 H PT INR APTT Sodium Potassium Chloride Carbon Dioxide Anion Gap BUN Creatinine Est GFR ( Amer) Est GFR (Non-Af Amer) POC Glucose (mg/dL) Random Glucose Calcium Magnesium Total Bilirubin AST ALT Alkaline Phosphatase Lactate Dehydrogenase Total Creatine Kinase Troponin I NT-Pro-B Natriuret Pep Total Protein Albumin Globulin Albumin/Globulin Ratio Urine Color Urine Appearance Urine pH Ur Specific [place] Urine Protein Urine Glucose (UA) Urine Ketones Urine Blood Urine Nitrate Urine Bilirubin Urine Urobilinogen Ur Leukocyte Esterase Urine RBC Urine WBC Ur Epithelial Cells Urine Bacteria Attending/Attestation - Attestation I have personally seen and examined this patient.: Yes I have fully participated in the care of the patient.: Yes I have reviewed all pertinent clinical information: Yes Notes (Text): 12/29/18 83 year old female with past medical history of afib on eliquis, hypertension, uterine cancer s/p hysterectomy with chronic hidalgo frequently changed by urology, and depression who presents with complaint of generalized weakness and frequent falls at home. Imaging studies were negative for fracture or bleed. Found to have elevated troponin (0.12) and bradycardia. She denies any chest pain or shortness of breath. Will trend troponins. Cardiology evaluation is requested. Metoprolol is on hold for now. MUGA scan and TSH is ordered. Patient is on eliquis at home; risks and benefits of anticoagulation were discussed with patient and daughter at bedside. Patient lives alone at home; PT evaluation is requested as patient may need rehab vs support at home upon discharge. UA noted; however patient is asymptomatic. Marla Clark MD Hospitalist.
--- NOTE | 2018-12-30 00:46 | CON ---
DATE: 12/29/2018 CONSULT SERVICE: Cardiology. REASON FOR CONSULTATION: Borderline positive troponin, history of frequent fall, and generalized weakness. BRIEF CLINICAL HISTORY: This is an 83-year-old female with past medical history significant for paroxysmal atrial fibrillation, on Eliquis; hypertension; hyperlipidemia; history of uterine cancer; history of hysterectomy; gastroesophageal reflux; depression; multiple urinary tract infection; chronic kidney disease, came to the emergency room after having last 2 days frequent fall at the bedside. The patient feels generalized weakness. Frequent falling on the right hip because of feeling weak. Denies any chest pain. Denies any shortness of breath. Denies any palpitation. Daughter is at the bedside. Workup shows borderline troponin positive, so Cardiology consult was called. PAST MEDICAL HISTORY: Significant for atrial fibrillation paroxysmal, hypertension, hyperlipidemia, chronic depression, insomnia, recurrent urinary tract infection, history of urinary bladder infection and the patient has to do frequent catheterization by herself because she cannot pass the urine, history of uterine cancer, and history of gastroesophageal reflux. PAST SURGICAL HISTORY: Significant for hysterectomy for uterine cervical cancer, status post radiation, history of appendectomy in the past, and history of cholecystectomy in the past. After hysterectomy, the patient had urinary tract infection of the bladder and recurrent urinary tract infection and the patient has to do the catheterization by herself. PREVIOUS CARDIAC WORKUP FOLLOWS: The patient had a cardiac catheterization on 12/28/2014 that showed ejection fraction of 35% to 50%. LAD 50% to 55% stenosis. Other vessels did not show any significant stenosis. Nonobstructive coronary artery disease, nonischemic cardiomyopathy, ejection fraction as mentioned 35% to 40%. EDP was in the range of 14. The patient had recent echocardiography done on 09/17/2018 that showed ventricular function normal, aortic valve is moderately sclerotic, moderately aortic regurgitation, mild mitral regurgitation, moderate tricuspid regurgitation, moderate pulmonary hypertension, and RV systolic pressure 50. The patient had a carotid ultrasound on 12/09/2014 that showed 29% bilateral carotid artery stenosis. CURRENT MEDICATIONS: The patient is taking at home hydralazine 10 mg daily, Ambien 5 mg daily, Paxil 20 mg daily, metoprolol 25 mg daily, lisinopril 20 mg daily, Lasix 20 mg daily, Nexium 40 mg daily, atorvastatin 10 mg daily, Eliquis 2.5 mg p.o. b.i.d., and amiodarone 200 mg daily. REVIEW OF SYSTEMS: As per HPI. PHYSICAL EXAMINATION: VITAL SIGNS: As follows; height of the patient 5 feet 3 inches, weight of the patient 170 pounds, and body mass index 30 kg/m2. Temperature afebrile, heart rate 50, and blood pressure 175/75. HEENT: PERRLA. Extraocular muscles intact. NECK: Supple. No carotid bruits or thyromegaly. CHEST: Clear to auscultation. HEART: S1 and S2 regular. ABDOMEN: Soft. EXTREMITIES: Clubbing and cyanosis negative. LABORATORY DATA: Blood workup as follows; WBC 11.3, hemoglobin 11.8, hematocrit 37.5, and platelet count 196. Chemistry shows sodium 130, potassium 4.8, chloride , carbon dioxide 20, anion gap of 11, BUN 62, and creatinine 1.2. Total troponin is 0.12. BNP 1980. EKG showed normal sinus bradycardia, heart rate of 50, LVH repolarization abnormality. ASSESSMENT: An 83-year-old female with past medical history significant for cervical and uterine cancer, status post hysterectomy, status post radiation, history of appendectomy, cholecystectomy in the past, hypertension, paroxysmal atrial fibrillation, on Eliquis and amiodarone, admitted after generalized weakness and frequent fall. Borderline troponin positive. Renal insufficiency. RECOMMENDATIONS: Since the patient had cardiac cath in 2017, nonobstructive coronary artery disease 40% to 50%stenosis. Follow up serial CPK and troponin to rule out any ischemic event. If the troponin remains negative, then we will start Eliquis. We will get a MUGA scan to assess LV function. At one point, the patient had nonischemic cardiomyopathy, which later on improved by the last echo. Lipid profile, TSH, and hemoglobin A1c. Resume all previous medications and follow up with you. Discussed with the daughter. Thank you Dr. Clark for providing us the opportunity in taking care of the patient, Emily Young. Jimmy Garcia MD
[2018-12-30 04:43] VITALS: BMI 30.1
[2018-12-30 07:01] LABS: BASO # 0.02 K/mm3 (0.0-2.0); BASO % 0.2 % (0.0-3.0); EOS % 0.4 % (1.5-5.0); HEMOGLOBIN 10.8 g/dL (12.0-16.0); LYMPH % 11.2 % (22.0-35.0); MEAN CELL VOLUME 85.8 fl (80.0-105.0); MEAN CORPUSCULAR HEMOGLOBIN 26.9 pg (25.0-35.0); MEAN CORPUSCULAR HGB CONC 31.4 g/dl (31.0-37.0); MEAN PLATELET VOLUME 10.3 fl (7.0-11.0); MONO # 0.6 (0.1-0.6); MONO % 7.4 % (1.0-6.0); RBC 4.01 10^6/uL (3.5-6.1); RED CELL DISTRIBUTION WIDTH 15.7 % (11.5-14.5); WHITE BLOOD COUNT 8.5 10^3/uL (4.5-11.0)
[2018-12-30 07:23] LABS: TROPONIN I 0.09 ng/mL
[2018-12-30 07:35] LABS: ALB/GLOB RATIO 0.9 (1.1-1.8); ALBUMIN 2.8 g/dL (3.0-4.8); CALCIUM 8.5 mg/dL (8.4-10.5)
[2018-12-30 10:12] LABS: T3 UPTAKE 45.7 % (23.0-41.0)
[2018-12-30 10:26] LABS: T3 0.6 ng/mL (0.97-1.69)
[2018-12-30] MEDS: Pantoprazole 40 mg EC Tab PO SCH (10:49)
--- NOTE | 2018-12-30 12:15 | PN ---
DATE: 12/30/2018 REASON FOR CONSULTATION AND FOLLOWUP: Borderline troponin positive, history of frequent fall, and generalized weakness. SUBJECTIVE: The patient denies any chest pain, shortness of breath, any palpitations. OBJECTIVE: GENERAL: Not in apparent distress. Daughter is at the bedside. VITAL SIGNS: Temperature afebrile, heart rate 57, blood pressure 193/83. HEENT: PERRLA. Extraocular muscles are intact. NECK: Supple. No carotid bruits. No thyromegaly. CHEST: Clear to auscultation. HEART: S1 and S2 regular. ABDOMEN: Soft. EXTREMITIES: Clubbing and cyanosis negative. LABORATORY DATA: Blood workup as follows: WBC 8.5, hemoglobin 10.8, hematocrit 34.4, platelet count 146. Chemistry shows sodium 130, potassium 4.6, chloride 110, carbon dioxide 24, anion gap of 7, BUN 49 and creatinine 1.2. TSH 0.02. Total protein 5.8, albumin 2.8, albumin-globulin ratio 3. Triglyceride 308. Cholesterol 183, LDL 84, HDL 45. Troponin 0.12, 0.09, 0.09. Creatinine clearance is 43 mL/hour. IMPRESSION: An 83-year-old female with a past medical history significant for paroxysmal atrial fibrillation on Eliquis, history of hypertension, hyperlipidemia, history of uterine cancer, history of hysterectomy, history of gastroesophageal reflux, depression, multiple urinary tract infection, used to the patient catheterize himself. Last three months, the patient has an indwelling Workman catheter, admitted with frequent fall twice, on admission troponin 0.12. Cardiology consult was called. The patient denies any chest pain, shortness of breath, or any palpitation. History of cardiac catheterization on 12/28/2014, at that time ejection fraction was 35% to 40%, LAD 50% to 55% stenosis; otherwise rest of artery essentially free of significant disease. Medical treatment recommended. Recent echo dated 09/17/2018 shows ejection fraction normal, aortic valve is moderately sclerotic, moderate aortic regurgitation, mild mitral regurgitation, moderate tricuspid regurgitation, RV systolic pressure 50 consistent of moderate pulmonary hypertension. Bilateral carotid Duplex on 12/09/2014, 20% to 39% stenosis. First troponin was borderline positive, repeat troponin indeterminate age. No evidence of acute WA, asymptomatic. RECOMMENDATIONS: Aggressive medical treatment. Continue Eliquis. Aggressive control of her blood pressure. Initial urine also showed moderate leukocyte esterase, positive and cloudy, possible urinary tract infection. The patient has indwelling Workman catheter. Recommendation, no plan for cardiac catheterization, not warranted. We will get the MUGA scan to assess LV function, has improved. Continue amiodarone, baby aspirin. Continue Eliquis 2.5 mg p.o. b.i.d. Continue atorvastatin 10 mg daily. Continue metoprolol 25 mg p.o. b.i.d. Continue lisinopril and p.r.n. hydralazine for blood pressure as needed more, adjusted dose of lisinopril according to our need of hydralazine. We will continue hydralazine p.r.n. and after the dose of lisinopril, we will see how much the requirement and then accordingly, we will adjust the medication. Discussed with the daughter, wait for the MUGA scan. We will discontinue telemetry. The patient has decreased TSH 0.04, we will follow T3, T4 to see whether thyrotoxicosis. We will get both free T3 and T3 uptake to rule out any hyperthyroidism. If the patient is stable, we will check orthostatic and discontinue telemetry and discontinue IV fluid. Discussed with daughter. Continue hydralazine p.r.n. We will decrease Lopressor to 12.5 p.o. b.i.d. because of the bradycardia and continue amiodarone. We will increase lisinopril to 40 mg daily from today. Thank you Dr. Huang for providing us the opportunity in taking care of the patient, Hannah Diaz. Jimmy Garcia MD
--- NOTE | 2018-12-30 14:33 | CP.PCM.PCO ---
Physician Communication Note - Physician Communication Note Physician Communication Note: PT eval pending
--- NOTE | 2018-12-30 15:11 | CP.PCM.PN ---
<Wilfrido Kelsey - Last Filed: 12/30/18 15:11> Subjective - Date & Time of Evaluation Date of Evaluation: 12/30/18 Time of Evaluation: 08:00 - Subjective Subjective: Wilfrido Kelsey PGY1 Medicine Progress Note for Dr. Clark Patient seen and examined at bedside this morning. Daughter present at bedside for translation. Patient denies cp, sob, n/v/d, fatigue, fever, chills. No adverse overnight events. A full 12 point ROS was conducted and unremarkable except as stated above. Objective - Vital Signs/Intake and Output Vital Signs (last 24 hours): Temp Pulse Resp BP Pulse Ox 98 F 65 19 168/84 H 95 12/30/18 12:00 12/30/18 12:00 12/30/18 12:00 12/30/18 12:00 12/30/18 06:00 Intake and Output: 12/30/18 12/30/18 06:59 18:59 Intake Total 100 Output Total 500 Balance -400 - Medications Medications: Current Medications Amiodarone HCl (Cordarone) 200 mg PO DAILY [facility] Last Admin: 12/30/18 11:26 Dose: 200 mg Apixaban (Eliquis) 2.5 mg PO BID [facility]; Protocol Last Admin: 12/30/18 10:51 Dose: 2.5 mg Aspirin (Ecotrin) 81 mg PO DAILY [facility] Last Admin: 12/30/18 10:51 Dose: 81 mg Atorvastatin Calcium (Lipitor) 10 mg PO 1700 [facility] Hydralazine HCl (Apresoline) 10 mg PO QID PRN PRN Reason: for sbp>160 Last Admin: 12/29/18 18:52 Dose: 10 mg Sodium Chloride (Sodium Chloride 0.9%) 1,000 mls @ 75 mls/hr IV .[id number] [facility] Last Admin: 12/29/18 15:44 Dose: 75 mls/hr Lisinopril (Zestril) 40 mg PO DAILY [facility] Last Admin: 12/30/18 10:51 Dose: 40 mg Metoprolol Tartrate (Lopressor) 12.5 mg PO BID [facility] Pantoprazole Sodium (Protonix Ec Tab) 40 mg PO DAILY [facility] Last Admin: 12/30/18 10:49 Dose: 40 mg Paroxetine HCl (Paxil) 20 mg PO 1800 [facility] - Labs Labs: 12/30/18 06:30 12/30/18 06:30 PT 12.4 SECONDS (9.4-12.5) 12/29/18 15:35 INR 1.12 12/29/18 15:35 APTT 23.3 Seconds (26.9-38.3) L 12/29/18 15:35 - Constitutional Appears: No Acute Distress - Head Exam Head Exam: ATRAUMATIC, NORMAL INSPECTION, NORMOCEPHALIC - Eye Exam Eye Exam: EOMI, Normal appearance Pupil Exam: NORMAL ACCOMODATION - ENT Exam ENT Exam: Mucous Membranes Moist, Normal Exam - Respiratory Exam Respiratory Exam: Clear to Auscultation Bilateral, NORMAL BREATHING PATTERN. absent: Accessory Muscle Use, Chest Wall Tenderness, Rales, Rhonchi, Wheezes, Respiratory Distress - Cardiovascular Exam Cardiovascular Exam: RRR, +S1, +S2 - GI/Abdominal Exam GI & Abdominal Exam: Normal Bowel Sounds, Soft. absent: Distended, Guarding, Rebound, Rigid, Tenderness - Extremities Exam Extremities exam: Positive for: normal capillary refill, normal inspection, pedal pulses present Additional comments: 5/5 motor strength in all distal upper and lower extremities. Sensation is also intact in all extremities. - Back Exam Back exam: NORMAL INSPECTION - Neurological Exam Neurological exam: Alert, CN II-XII Intact, Oriented x3 Additional comments: Sensation is intact. No focal neuro deficits. - Psychiatric Exam Psychiatric exam: Normal Affect, Normal Mood - Skin Skin Exam: Dry, Intact, Normal Color, Warm Assessment and Plan - Assessment and Plan (Free Text) Assessment: Patient is a 83 year old Bengali Speaking female, with a past medical history of atrial fibrillation on eliquis, HLD, HTN, obesity, uterine cancer s/p hysterectomy (14 years ago), GERD, depression, and kidney disease, who presents to the emergency department complaining of weakness and multiple falls for the past 3 weeks. Patient admitted for weakness and multiple falls in the setting of sinus bradycardia, Elevated troponins, and dehydration. Plan: Weakness and Multiple Falls in the setting of Sinus Bradycardia - As per cardio recs, c/w amiodarone. Metoprolol was decreased to 12.5 mg PO BID and Lisinopril increased to 40mg PO daily. - Orthostatic vital signs were positive - TSH was low (.02); f/u free T3 and T4 - f/u PT recs for possible [facility] vs home with services vs TCU - c/w fall precautions - Cardio is on consult (Dr. Garcia). Recs appreciated. - EKG on admission: HR 50, sinus sonu. No acute ST or T wave changes. - Head CT on admission: negative for bleed - Hip/Pelvis XR on admission: no fractures Elevated Troponins - As per cardio, likely not GA and no cath needed. Patient is cleared for discharge pending MUGA scan results. 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 Cardio recs appreciated. Pending PT evaluation. Case was discussed and reviewed with Attending Physician, Dr. Clark <Marla Clark - Last Filed: 12/30/18 15:44> Objective - Vital Signs/Intake and Output Vital Signs (last 24 hours): Temp Pulse Resp BP Pulse Ox 98 F 65 19 168/84 H 95 12/30/18 12:00 12/30/18 12:00 12/30/18 12:00 12/30/18 12:00 12/30/18 06:00 Intake and Output: 12/30/18 12/30/18 06:59 18:59 Intake Total 100 Output Total 500 Balance -400 - Medications Medications: Current Medications Amiodarone HCl (Cordarone) 200 mg PO DAILY [facility] Last Admin: 12/30/18 11:26 Dose: 200 mg Apixaban (Eliquis) 2.5 mg PO BID [facility]; Protocol Last Admin: 12/30/18 10:51 Dose: 2.5 mg Aspirin (Ecotrin) 81 mg PO DAILY [facility] Last Admin: 12/30/18 10:51 Dose: 81 mg Atorvastatin Calcium (Lipitor) 10 mg PO 1700 [facility] Hydralazine HCl (Apresoline) 10 mg PO QID PRN PRN Reason: for sbp>160 Last Admin: 12/29/18 18:52 Dose: 10 mg Sodium Chloride (Sodium Chloride 0.9%) 1,000 mls @ 75 mls/hr IV .[id number] [facility] Last Admin: 12/29/18 15:44 Dose: 75 mls/hr Lisinopril (Zestril) 40 mg PO DAILY [facility] Last Admin: 12/30/18 10:51 Dose: 40 mg Metoprolol Tartrate (Lopressor) 12.5 mg PO BID [facility] Pantoprazole Sodium (Protonix Ec Tab) 40 mg PO DAILY [facility] Last Admin: 12/30/18 10:49 Dose: 40 mg Paroxetine HCl (Paxil) 20 mg PO 1800 [facility] - Labs Labs: 12/30/18 06:30 12/30/18 06:30 PT 12.4 SECONDS (9.4-12.5) 12/29/18 15:35 INR 1.12 12/29/18 15:35 APTT 23.3 Seconds (26.9-38.3) L 12/29/18 15:35 Attending/Attestation - Attestation I have personally seen and examined this patient.: Yes I have fully participated in the care of the patient.: Yes I have reviewed all pertinent clinical information, including history, physical exam and plan: Yes Notes (Text): 12/30/18 15:40 83 year old female with past medical history of afib on eliquis, hypertension, uterine cancer s/p hysterectomy with chronic hidalgo frequently changed by urology, and depression who presented with complaint of generalized weakness and frequent falls at home. Imaging studies were negative for fracture or bleed. Found to have elevated troponin which has trended down and bradycardia. She denies any chest pain or shortness of breath. TSH was also low. Cardiology evaluation was appreciated who recommended to reduce metoprolol dose and continue with amiodarone for now. Pending MUGA scan. Patient is on eliquis at home; risks and benefits of anticoagulation were discussed with patient and daughter at bedside. Check orthostatics. Patient lives alone at home; PT evaluation was requested as patient may need rehab vs support at home upon disch arge. Awaiting PT recommendations. UA noted; however patient is asymptomatic. Leukocytosis has resolved. Marla Clark MD Hospitalist.
--- NOTE | 2018-12-30 20:38 | CARD ---
APPROVED REPORT Date of service: 12/30/2018 INDICATION Weakness elevatd troponin,Evaluate EF% PROCEDURE The above named patient recieved 29.7 millicuries of Tc99m tagged red blood cells intravenously. After achieving equilibrium, gated imaging of 16/frame/cycle was performed utillizing Gamma camera interfaced with a digital computer and gated device. Gated imaging was then performed in the left anterior oblique, anterior, and the left lateral projections. Findings Calculated LV Ejection Fraction is 64%. Impressions Calculated Ejection Fraction is 64 %.
[2018-12-31] MEDS: Sodium Chloride 0.9% 1,000 ML IV SCH (01:34)
[2018-12-31 06:31] VITALS: TEMP 98; O2SAT 97
[2018-12-31 07:49] LABS: HEMOGLOBIN 10.7 g/dL (12.0-16.0); MEAN CORPUSCULAR HEMOGLOBIN 26.7 pg (25.0-35.0); MEAN PLATELET VOLUME 10.3 fl (7.0-11.0); RBC 4.01 10^6/uL (3.5-6.1); RED CELL DISTRIBUTION WIDTH 15.7 % (11.5-14.5); WHITE BLOOD COUNT 9.1 10^3/uL (4.5-11.0)
[2018-12-31 08:25] LABS: ALB/GLOB RATIO 0.9 (1.1-1.8); ALBUMIN 2.8 g/dL (3.0-4.8); CALCIUM 8.7 mg/dL (8.4-10.5); FREE T4 1.72 ng/dL (0.78-2.19)
[2018-12-31] MEDS: Pantoprazole 40 mg EC Tab PO SCH (11:20)
--- NOTE | 2018-12-31 12:53 | PN ---
DATE: 12/31/2018 REASON FOR CONSULTATION: Followup borderline positive troponin, possible urinary tract infection, history of frequent fall, generalized weakness, rule out UTI. SUBJECTIVE: The patient denies any chest pain, shortness of breath, any palpitation. OBJECTIVE: GENERAL: Not in apparent distress. VITAL SIGNS: Temperature afebrile, heart rate 58, blood pressure 201/96. HEENT: PERRLA. Extraocular muscles are intact. NECK: Supple. No carotid bruits. No thyromegaly. CHEST: Clear to auscultation. HEART: S1 and S2, regular. ABDOMEN: Soft. EXTREMITIES: Clubbing and cyanosis negative. LABORATORY DATA: Blood workup: WBC 9.1, hemoglobin 10.7, hematocrit 34.4, platelet count 157. Chemistry shows sodium 130, potassium 4.5, chloride 108, carbon dioxide 23, anion gap of 13, BUN 40, and creatinine 1.1. IMPRESSION: An 83-year-old female with a past medical history significant for paroxysmal atrial fibrillation, on Eliquis, history of hypertension, hyperlipidemia, history of uterine cancer, history of hysterectomy, history of gastroesophageal reflux, depression, multiple urinary tract infections secondary to catheterization herself. Last three months, the patient had indwelling Workman catheter, admitted with generalized weakness and falling. On admission, borderline troponin positive, subsequently troponin remains negative. No complaint of chest pain. The patient had a prior cardiac catheterization done dated 12/28/2014, ejection fraction 35% to 40%, only left anterior descending stenosis, medical treatment recommended. At one point, the patient has a decreased left ventricular function, so repeated MUGA done yesterday. MUGA scan shows ejection fraction 64%, which significantly improved and the patient is in normal sinus. Last echo dated 09/17/2018 also shows normal left ventricular function. The patient becomes bradycardic, so metoprolol decreased to 12.5 p.o. b.i.d., amiodarone 200 mg daily, but now the patient has hypertension, so hydralazine we will increased 25/50 b.i.d. For the blood pressure, increase lisinopril to 40 daily and we will increase hydralazine to at least 25 mg p.o. b.i.d. and see the response; if needed more, we will increase to [address] Clark and the transferring resident. Discussed with the daughter as well. Also put hydralazine p.r.n. for systolic more than 160. Yesterday, we increased the lisinopril to 40 mg daily. Continue Eliquis for history of paroxysmal atrial fibrillation. We will follow with you. Jimmy Garcia MD
--- NOTE | 2018-12-31 15:56 | CP.PCM.DIS ---
<LowWilfrido - Last Filed: 12/31/18 16:47> Provider - Provider Date of Admission: 12/29/18 19:20 Attending physician: Marla Clark MD Primary care physician: Karly Pacheco MD Consults: 12/29/18 17:28 Cardiology Consult Routine Comment: Consulting Provider: Jimmy Garcia Consulting Physician: Jimmy Garcia Reason for Consult: elevated troponin 12/30/18 04:34 Social Work Referral Routine Comment: needs assistance Physician Instructions: Reason For Exam: lives alone 12/30/18 04:43 Transition In Care/Readmission Reduction Routine Comment: Physician Instructions: Reason For Exam: readmission 12/30/18 16:53 Diabetic Education Referral Routine Comment: Physician Instructions: Reason For Exam: a1c 7.9 12/31/18 12:50 Discharge Planning [Case Management Referral] Routine Comment: Physician Instructions: Reason For Exam: VNA evaluation Reason for Referral: Discharge Planning Time Spent in preparation of Discharge (in minutes): 35 Hospital Course - Lab Results Lab Results: Micro Results 12/29/18 16:07 Urine Random Urine Culture - Final Proteus Mirabilis Most Recent Lab Values WBC 9.1 10^3/uL (4.5-11.0) 12/31/18 07:30 RBC 4.01 10^6/uL (3.5-6.1) 12/31/18 07:30 Hgb 10.7 g/dL (12.0-16.0) L 12/31/18 07:30 Hct 34.5 % (36.0-48.0) L 12/31/18 07:30 MCV 86.0 fl (80.0-105.0) 12/31/18 07:30 MCH 26.7 pg (25.0-35.0) 12/31/18 07:30 MCHC 31.0 g/dl (31.0-37.0) 12/31/18 07:30 RDW 15.7 % (11.5-14.5) H 12/31/18 07:30 Plt Count 157 10^3/uL (120.0-450.0) 12/31/18 07:30 MPV 10.3 fl (7.0-11.0) 12/31/18 07:30 Neut % (Auto) 80.8 % (50.0-68.0) H 12/30/18 06:30 Lymph % (Auto) 11.2 % (22.0-35.0) L 12/30/18 06:30 Terry % (Auto) 7.4 % (1.0-6.0) H 12/30/18 06:30 Eos % (Auto) 0.4 % (1.5-5.0) L 12/30/18 06:30 Baso % (Auto) 0.2 % (0.0-3.0) 12/30/18 06:30 Lymph # (Auto) 1.0 (1.2-3.4) L 12/30/18 06:30 Terry # (Auto) 0.6 (0.1-0.6) 12/30/18 06:30 Eos # (Auto) 0.0 (0.0-0.7) 12/30/18 06:30 Baso # (Auto) 0.02 K/mm3 (0.0-2.0) 12/30/18 06:30 Absolute Neuts (auto) 6.90 (1.4-6.5) H 12/30/18 06:30 PT 12.4 SECONDS (9.4-12.5) 12/29/18 15:35 INR 1.12 12/29/18 15:35 APTT 23.3 Seconds (26.9-38.3) L 12/29/18 15:35 Sodium 139 mmol/L (132-148) 12/31/18 07:30 Potassium 4.5 mmol/L (3.6-5.0) 12/31/18 07:30 Chloride 108 mmol/L (98-107) H 12/31/18 07:30 Carbon Dioxide 23 mmol/L (21-33) 12/31/18 07:30 Anion Gap 13 (10-20) 12/31/18 07:30 BUN 46 mg/dL (7-21) H 12/31/18 07:30 Creatinine 1.1 mg/dl (0.7-1.2) 12/31/18 07:30 Est GFR ( Amer) 58 12/31/18 07:30 Est GFR (Non-Af Amer) 48 12/31/18 07:30 POC Glucose (mg/dL) 199 mg/dL (65-110) H 12/29/18 14:23 Random Glucose 188 mg/dL (70-110) H 12/31/18 07:30 Hemoglobin A1c 7.9 % (4.2-6.5) H 12/30/18 06:30 Calcium 8.7 mg/dL (8.4-10.5) 12/31/18 07:30 Phosphorus 3.5 mg/dL (2.5-4.5) 12/30/18 06:30 Magnesium 1.9 mg/dL (1.7-2.2) 12/30/18 06:30 Total Bilirubin 0.2 mg/dL (0.2-1.3) 12/31/18 07:30 AST 15 U/L (14-36) 12/31/18 07:30 ALT 19 U/L (7-56) 12/31/18 07:30 Alkaline Phosphatase 71 U/L (38-126) 12/31/18 07:30 Lactate Dehydrogenase 669 U/L (333-699) 12/30/18 06:30 Total Creatine Kinase 34 U/L (35-230) L 12/30/18 06:30 Troponin I 0.09 ng/mL 12/30/18 06:30 NT-Pro-B Natriuret Pep 1980 pg/mL (0-450) H 12/29/18 15:35 Total Protein 5.8 g/dL (5.8-8.3) 12/31/18 07:30 Albumin 2.8 g/dL (3.0-4.8) L 12/31/18 07:30 Globulin 3.0 gm/dL 12/31/18 07:30 Albumin/Globulin Ratio 0.9 (1.1-1.8) L 12/31/18 07:30 Triglycerides 308 mg/dL (35-160) H 12/30/18 06:30 Cholesterol 183 mg/dL (130-200) 12/30/18 06:30 LDL Cholesterol Direct 84 mg/dL (0-129) 12/30/18 06:30 HDL Cholesterol 45 mg/dL (29-60) 12/30/18 06:30 Free T4 1.72 ng/dL (0.78-2.19) 12/31/18 07:30 Thyroxine (T4) 8.9 ug/dL (5.5-11.0) 12/31/18 07:30 Free T3 pg/mL 2.47 pg/mL (2.77-5.27) L 12/30/18 06:30 Total T3 0.60 ng/mL (0.97-1.69) L 12/30/18 09:15 T3 Uptake 45.7 % (23.0-41.0) H 12/30/18 09:15 TSH 3rd Generation < 0.02 mIU/mL (0.46-4.68) L 12/31/18 07:30 Urine Color Light yellow (YELLOW) 12/29/18 16:07 Urine Appearance Sl cloudy (CLEAR) 12/29/18 16:07 Urine pH 7.5 (4.7-8.0) 12/29/18 16:07 Ur Specific [place] 1.015 (1.005-1.035) 12/29/18 16:07 Urine Protein 30 mg/dL (<30 mg/dL) H 12/29/18 16:07 Urine Glucose (UA) Negative mg/dL (NEGATIVE) 12/29/18 16:07 Urine Ketones Negative mg/dL (NEGATIVE) 12/29/18 16:07 Urine Blood Negative (NEGATIVE) 12/29/18 16:07 Urine Nitrate Negative (NEGATIVE) 12/29/18 16:07 Urine Bilirubin Negative (NEGATIVE) 12/29/18 16:07 Urine Urobilinogen 0.2 E.U./dL (<1 E.U./dL) 12/29/18 16:07 Ur Leukocyte Esterase Moderate Joaquin/uL (NEGATIVE) H 12/29/18 16:07 Urine RBC 0 - 2 /hpf (0-2) 12/29/18 16:07 Urine WBC 2 - 5 /hpf (0-6) 12/29/18 16:07 Ur Epithelial Cells 0 - 2 /hpf (0-5) 12/29/18 16:07 Urine Bacteria Many /hpf (NONE) 12/29/18 16:07 - Hospital Course Hospital Course: Wilfrido Kelsey, PGY1 Discharge Summary for Dr. Clark Patient is a 83 year old Citizen Of [place] Speaking female, with a past medical history of atrial fibrillation on eliquis, HLD, HTN, obesity, uterine cancer s/p hysterectomy (14 years ago), GERD, depression, and kidney disease, who presented to the emergency department complaining of weakness and multiple falls for the past 3 weeks. Patient has a chronic hidalgo in place for urinary retention. Patient had an initial fall about 3 weeks ago. However, since then, falls have been worsening and have occurred multiple times throughout the day including day and night. She does not endorse any dizziness or lightheadedness. As per daughter, she did not hit her head or have any loss of consciousness. No changes in mental status. Patient is AAOx3. Patient lives alone at home. Patient was admitted for weakness and multiple falls, sinus bradycardia, elevated troponins, and dehydration. Orthostatic vitals were positive for patient. EKG only showed sinus bradycardia without any acute ST or T wave changes. PT was also placed on board. Cardio was consulted as well. As per cardio, elevated trops were not due to [facility] and MUGA scan was done. It revealed EF 64%. Dehydration improved with IVF. During hospital course, BP was also elevated, however after adjustments of BP meds as per cardio, BP improved. Overall, patient is hemodynamically stable. However, because of her multiple falls PT recommended TCU. Patient is refusing TCU. She was discussed extensively the importance of TCU given her falls and the fact that she is on blood thinners due to her Afib. She is aware of her risks of bleed and . She also has full capacity. After further discussion with patient and family, it was agreed that patient will be going home. She will be supervised by family members and in the meantime, patient will receive home PT with [facility]NA. Discharge Exam - Head Exam Head Exam: ATRAUMATIC, NORMAL INSPECTION, NORMOCEPHALIC - Eye Exam Eye Exam: Normal appearance Pupil Exam: NORMAL ACCOMODATION - Respiratory Exam Respiratory Exam: Clear to PA & Lateral. absent: Accessory Muscle Use, Chest Wall Tenderness, Rales, Rhonchi, Wheezes, Respiratory Distress, Stridor - Cardiovascular Exam Cardiovascular Exam: RRR, +S1, +S2 - GI/Abdominal Exam GI & Abdominal Exam: Normal Bowel Sounds - Extremities Exam Extremities exam: normal capillary refill, normal inspection, pedal pulses present - Neurological Exam Neurological exam: Alert, CN II-XII Intact, Oriented x3 - Psychiatric Exam Psychiatric exam: Normal Affect, Normal Mood - Skin Skin Exam: Dry, Intact, Normal Color, Warm Discharge Plan - Discharge Medications Prescriptions: RX: hydrALAZINE [Apresoline] 50 mg PO BID #60 tab RX: Lisinopril [Zestril] 40 mg PO DAILY #30 tab RX: Metoprolol Tartrate [Lopressor] 12.5 mg PO BID #60 tab - Follow Up Plan Condition: GUARDED Disposition: HOME/ ROUTINE Instructions: Preventing Falls Additional Instructions: Please follow up with your appointment with Dr. Cuba (Urologist) in January. Please see your PMD (Dr. Pacheco) within 3-4 days of discharge. Please see Supervisor Photocomposition (Dr. Garcia) within 1 week of discharge. Your medications are adjusted: -Hydralazine 50 twice a day -Lopressor 12.5 twice a day -Lisinopril 40mg daily Resume your home medications as prescribed. Return to the nearest emergency department if your symptoms reoccur Referrals: Jimmy Garcia MD [Staff Provider] - Oscar Cuba MD [Staff Provider] - Junior-Karly Mccarthy MD [Primary Care Provider] - <Marla Clark - Last Filed: 12/31/18 17:25> Provider - Provider Date of Admission: 12/29/18 19:20 Attending physician: Marla Clark MD Primary care physician: Karly Pacheco MD Consults: 12/29/18 17:28 Cardiology Consult Routine Comment: Consulting Provider: Jimmy Garcia Consulting Physician: Jimmy Garcia Reason for Consult: elevated troponin 12/30/18 04:34 Social Work Referral Routine Comment: needs assistance Physician Instructions: Reason For Exam: lives alone 12/30/18 04:43 Transition In Care/Readmission Reduction Routine Comment: Physician Instructions: Reason For Exam: readmission 12/30/18 16:53 Diabetic Education Referral Routine Comment: Physician Instructions: Reason For Exam: a1c 7.9 12/31/18 12:50 Discharge Planning [Case Management Referral] Routine Comment: Physician Instructions: Reason For Exam: VNA evaluation Reason for Referral: Discharge Planning Hospital Course - Lab Results Lab Results: Micro Results 12/29/18 16:07 Urine Random Urine Culture - Final Proteus Mirabilis Most Recent Lab Values WBC 9.1 10^3/uL (4.5-11.0) 12/31/18 07:30 RBC 4.01 10^6/uL (3.5-6.1) 12/31/18 07:30 Hgb 10.7 g/dL (12.0-16.0) L 12/31/18 07:30 Hct 34.5 % (36.0-48.0) L 12/31/18 07:30 MCV 86.0 fl (80.0-105.0) 12/31/18 07:30 MCH 26.7 pg (25.0-35.0) 12/31/18 07:30 MCHC 31.0 g/dl (31.0-37.0) 12/31/18 07:30 RDW 15.7 % (11.5-14.5) H 12/31/18 07:30 Plt Count 157 10^3/uL (120.0-450.0) 12/31/18 07:30 MPV 10.3 fl (7.0-11.0) 12/31/18 07:30 Neut % (Auto) 80.8 % (50.0-68.0) H 12/30/18 06:30 Lymph % (Auto) 11.2 % (22.0-35.0) L 12/30/18 06:30 Terry % (Auto) 7.4 % (1.0-6.0) H 12/30/18 06:30 Eos % (Auto) 0.4 % (1.5-5.0) L 12/30/18 06:30 Baso % (Auto) 0.2 % (0.0-3.0) 12/30/18 06:30 Lymph # (Auto) 1.0 (1.2-3.4) L 12/30/18 06:30 Terry # (Auto) 0.6 (0.1-0.6) 12/30/18 06:30 Eos # (Auto) 0.0 (0.0-0.7) 12/30/18 06:30 Baso # (Auto) 0.02 K/mm3 (0.0-2.0) 12/30/18 06:30 Absolute Neuts (auto) 6.90 (1.4-6.5) H 12/30/18 06:30 PT 12.4 SECONDS (9.4-12.5) 12/29/18 15:35 INR 1.12 12/29/18 15:35 APTT 23.3 Seconds (26.9-38.3) L 12/29/18 15:35 Sodium 139 mmol/L (132-148) 12/31/18 07:30 Potassium 4.5 mmol/L (3.6-5.0) 12/31/18 07:30 Chloride 108 mmol/L (98-107) H 12/31/18 07:30 Carbon Dioxide 23 mmol/L (21-33) 12/31/18 07:30 Anion Gap 13 (10-20) 12/31/18 07:30 BUN 46 mg/dL (7-21) H 12/31/18 07:30 Creatinine 1.1 mg/dl (0.7-1.2) 12/31/18 07:30 Est GFR ( Amer) 58 12/31/18 07:30 Est GFR (Non-Af Amer) 48 12/31/18 07:30 POC Glucose (mg/dL) 199 mg/dL (65-110) H 12/29/18 14:23 Random Glucose 188 mg/dL (70-110) H 12/31/18 07:30 Hemoglobin A1c 7.9 % (4.2-6.5) H 12/30/18 06:30 Calcium 8.7 mg/dL (8.4-10.5) 12/31/18 07:30 Phosphorus 3.5 mg/dL (2.5-4.5) 12/30/18 06:30 Magnesium 1.9 mg/dL (1.7-2.2) 12/30/18 06:30 Total Bilirubin 0.2 mg/dL (0.2-1.3) 12/31/18 07:30 AST 15 U/L (14-36) 12/31/18 07:30 ALT 19 U/L (7-56) 12/31/18 07:30 Alkaline Phosphatase 71 U/L (38-126) 12/31/18 07:30 Lactate Dehydrogenase 669 U/L (333-699) 12/30/18 06:30 Total Creatine Kinase 34 U/L (35-230) L 12/30/18 06:30 Troponin I 0.09 ng/mL 12/30/18 06:30 NT-Pro-B Natriuret Pep 1980 pg/mL (0-450) H 12/29/18 15:35 Total Protein 5.8 g/dL (5.8-8.3) 12/31/18 07:30 Albumin 2.8 g/dL (3.0-4.8) L 12/31/18 07:30 Globulin 3.0 gm/dL 12/31/18 07:30 Albumin/Globulin Ratio 0.9 (1.1-1.8) L 12/31/18 07:30 Triglycerides 308 mg/dL (35-160) H 12/30/18 06:30 Cholesterol 183 mg/dL (130-200) 12/30/18 06:30 LDL Cholesterol Direct 84 mg/dL (0-129) 12/30/18 06:30 HDL Cholesterol 45 mg/dL (29-60) 12/30/18 06:30 Free T4 1.72 ng/dL (0.78-2.19) 12/31/18 07:30 Thyroxine (T4) 8.9 ug/dL (5.5-11.0) 12/31/18 07:30 Free T3 pg/mL 2.47 pg/mL (2.77-5.27) L 12/30/18 06:30 Total T3 0.60 ng/mL (0.97-1.69) L 12/30/18 09:15 T3 Uptake 45.7 % (23.0-41.0) H 12/30/18 09:15 TSH 3rd Generation < 0.02 mIU/mL (0.46-4.68) L 12/31/18 07:30 Urine Color Light yellow (YELLOW) 12/29/18 16:07 Urine Appearance Sl cloudy (CLEAR) 12/29/18 16:07 Urine pH 7.5 (4.7-8.0) 12/29/18 16:07 Ur Specific [place] 1.015 (1.005-1.035) 12/29/18 16:07 Urine Protein 30 mg/dL (<30 mg/dL) H 12/29/18 16:07 Urine Glucose (UA) Negative mg/dL (NEGATIVE) 12/29/18 16:07 Urine Ketones Negative mg/dL (NEGATIVE) 12/29/18 16:07 Urine Blood Negative (NEGATIVE) 12/29/18 16:07 Urine Nitrate Negative (NEGATIVE) 12/29/18 16:07 Urine Bilirubin Negative (NEGATIVE) 12/29/18 16:07 Urine Urobilinogen 0.2 E.U./dL (<1 E.U./dL) 12/29/18 16:07 Ur Leukocyte Esterase Moderate Joaquin/uL (NEGATIVE) H 12/29/18 16:07 Urine RBC 0 - 2 /hpf (0-2) 12/29/18 16:07 Urine WBC 2 - 5 /hpf (0-6) 12/29/18 16:07 Ur Epithelial Cells 0 - 2 /hpf (0-5) 12/29/18 16:07 Urine Bacteria Many /hpf (NONE) 12/29/18 16:07 Attending/Attestation - Attestation I have personally seen and examined this patient.: Yes I have fully participated in the care of the patient.: Yes I have reviewed all pertinent clinical information, including history, physical exam and plan: Yes Notes (Text): 12/31/18 17:18 83 year old female with past medical history of afib on eliquis, hypertension, uterine cancer s/p hysterectomy with chronic hidalgo frequently changed by urology, and depression who presented with complaint of generalized weakness and frequent falls at home. Imaging studies were negative for fracture or bleed. Found to have elevated troponin which has trended down and bradycardia. She denied any chest pain or shortness of breath. TSH was also low. She was seen by cardiology who recommended to reduce metoprolol dose and continue with amiodarone for now. Hydralazine was also increased for hypertension. Patient is on eliquis at home; risks and benefits of anticoagulation were discussed with patient and daughter at bedside. Patient was seen by PT who recommended TCU, however patient refused. Explained to patient and daughter how she may benefit from rehab given falls however again she refused. UA/UCx noted, however patient is asymptomatic, ?colonization. She follows up with Dr. Cuba for hidalgo care. Patient will be discharged home with family support, home PT and VNA services. Follow up with pmd, cardiology and urology. Monitor LFTs/TFTs while on amiodarone. Marla Clark MD Hospitalist.
[2018-12-31 20:00] VITALS: BP 178/70; PULSE 65; RESP 16
== END 2018-12-31 20:59 | disposition home health service (06) | DRG 310 ==
LOC: ED 14:08 → ERH 17:29 → OBSVTOIN 19:20 → ERH 20:26 → 2RSO 21:11
PROVIDERS: ADMIT Internal Medicine; ATTEND Internal Medicine
DX: R00.1 Bradycardia, unspecified (principal); I48.0 Paroxysmal atrial fibrillation; E86.0 Dehydration; I12.9 Hypertensive chronic kidney disease with stage 1 through stage 4 chronic kidney disease, or unspecified chronic kidney disease; R33.9 Retention of urine, unspecified; I42.9 Cardiomyopathy, unspecified; I25.10 Atherosclerotic heart disease of native coronary artery without angina pectoris; I27.20 Pulmonary hypertension, unspecified; E78.5 Hyperlipidemia, unspecified; N18.9 Chronic kidney disease, unspecified; R53.1 Weakness; R29.6 Repeated falls; F32.9 Major depressive disorder, single episode, unspecified; I08.1 Rheumatic disorders of both mitral and tricuspid valves; K21.9 Gastro-esophageal reflux disease without esophagitis; E66.9 Obesity, unspecified; Z68.30 Body mass index [BMI] 30.0-30.9, adult; R74.8 Abnormal levels of other serum enzymes; Z79.01 Long term (current) use of anticoagulants; Z85.41 Personal history of malignant neoplasm of cervix uteri; Z92.3 Personal history of irradiation; Z90.710 Acquired absence of both cervix and uterus

== ENCOUNTER 2019-01-20 15:36 | Inpatient (IN) | payer MEDICARE, OTHER ==
[2019-01-20 15:36] VITALS: PULSE 104; BMI 30.1
--- NOTE | 2019-01-20 17:01 | ED PDOC ---
Arrival/HPI - General Chief Complaint: Dizziness/Lightheaded Time Seen by Provider: 01/20/19 16:10 - History of Present Illness Narrative History of Present Illness (Text): 01/20/19 16:58 83 f with hx atrial fibrillation and chronic hidalgo catheter presents to the ED with chief complaint of dizziness and elevated blood pressure. Patient reports that her dizziness is exacerbated with movement but improved whole at rest. Patient described the dizziness as if she is going to pass out. Patient fell last night sustained a face injury with a bruise to the forehead and superficial abrasion to the bridge of the nose. Patient states that she tripped which caused the fall, no LOC, no headache. At this time the patient denies headache, no chest pain, no dyspnea, no abdominal pain. Hx obtained by daughter who acted as manager disaster recovery with the patient's permission. Past Medical History - Past History Past History: No Previous - Infectious Disease Hx of Infectious Diseases: None - Past Medical History Past Medical History: No Previous - Cardiac Hx Cardiac Disorders: Yes (A-fib, on eliquis.) Hx Hypertension: Yes - Pulmonary Hx Respiratory Disorders: No Hx Asthma: No Hx Bronchitis: No Hx Chronic Obstructive Pulmonary Disease (COPD): No Hx Emphysema: No Hx Pneumonia: No Hx Respiratory Aspiration: No Hx Respiratory Tract Infection: No Hx Sleep Apnea: No Hx Tuberculosis: No - Neurological Hx Neurological Disorder: No Hx Alzheimer's Disease: No HX Cerebrovascular Accident: No Hx Dementia: No Hx Dizziness: No Hx Meningitis: No Hx Migraine: No Hx Parkinson's Disease: No Hx Seizures: No Hx Transient Ischemic Attacks (TIA): No - HEENT Hx HEENT Disorder: Yes Hx Blind: No Hx Cataracts: Yes Hx Deafness: No Hx Difficulty Chewing: No Hx Epistaxis: No Hx Glaucoma: No Hx Macular Degeneration: No - Renal Hx Renal Disorder: No Hx Dialysis: No Hx Kidney Stones: No Hx Neurogenic Bladder: Yes (retention cath at home) Hx Pyelonephritis: No Hx Renal Cancer: No Hx Renal Failure: No Other/Comment: Hidalgo cath changed in Dr Kessler office on 12/24/2018 DO NOT REMOVE as per Dr Montes - Endocrine/Metabolic Hx Endocrine Disorders: No Hx Adrenal Cancer: No Hx Diabetes Insipidus: No Hx Diabetes Mellitus Type 1: No Hx Diabetes Mellitus Type 2: No Hx Hyperthyroidism: No Hx Hypothyroidism: No Hx Systemic Lupus Erythematosus: No - Hematological/Oncological Hx Blood Disorders: Yes Hx AIDS: No Hx Anemia: Yes Hx Cancer: No Hx Chemotherapy: No Hx Cirrhosis: No Hx Hemophilia: No Hx Hepatitis A: No Hx Hepatitis B: No Hx Hepatitis C: No Hx Metastasis: No Hx Shingles: No Hx Sickle Cell Disease: No Hx Unexplained Bleeding: No Other/Comment: Hyperuricemia - Integumentary Hx Dermatological Disorder: No Hx Basal Cell Carcinoma: No Hx Eczema: No Hx Melanoma: No Hx Psoriasis: No Hx Squamous Cell Carcinoma: No - Musculoskeletal/Rheumatological Hx Arthritis: Yes - Gastrointestinal Hx Gastrointestinal Disorders: No Hx Colostomy: No Hx Crohn's Disease: No Hx Diverticulitis: No Hx Gall Bladder Disease: No Hx Gastroesophageal Reflux: Yes Hx Ileostomy: No Hx Liver Failure: No Hx Pancreatitis: No HX Swallowing Problems: No - Genitourinary/Gynecological Hx Urinary Tract Infection: Yes Other/Comment: + urinary catheter -- Dr Montes - Psychiatric Hx Psychophysiologic Disorder: No Hx Anxiety: No Hx Bipolar Disorder: No Hx Depression: Yes Hx Emotional Abuse: No Hx Hallucinations: No Hx Panic Disorder: No Hx Post Traumatic Stress Disorder: No Hx Psychosis: No Hx Physical Abuse: No Hx Schizophrenia: No Hx Sexual Abuse: No Hx Substance Use: No - Past Surgical History Past Surgical History: No Previous - Surgical History Hx Amputation: No Hx Appendectomy: Yes Hx Cholecystectomy: No Hx Gastric Bypass Surgery: No Hx Hysterectomy: No Hx Joint Replacement: Yes Hx Kidney Transplant: No Hx Liver Transplant: No Hx Mastectomy: No Hx Musculoskeletal Surgery: No Hx Open Heart Surgery: No Hx Orthopedic Surgery: No Hx Splenectomy: No Hx Valve Replacement: No - Anesthesia Hx Anesthesia: Yes Hx Anesthesia Reactions: No Hx Malignant Hyperthermia: No - Suicidal Assessment Feels Threatened In Home Enviroment: No Family/Social History Family/Social History: No Known Family HX Smoking Status: Never Smoked Hx Alcohol Use: No Hx Substance Use: No Allergies/Home Meds Allergies/Adverse Reactions: Allergies No Known Allergies Allergy (Verified 01/20/19 15:51) Home Medications: Home Meds Medication Instructions Recorded Confirmed Atorvastatin [Lipitor] 10 mg PO 1700 01/17/17 01/20/19 Esomeprazole Magnesium [Nexium] 40 mg PO DAILY 03/20/18 01/20/19 Review of Systems - Physician Review All systems were reviewed & negative as marked: Yes Physical Exam - Physical Exam Narrative Physical Exam (Text): 01/20/19 17:01 Gen: VS reviewed, alert, well developed, well nourished, nontoxic, mild distress Head: there is bruise of the forehead, there is a superficial abrasion on the bridge of the nose. Eye: EOMI, PERRL Neck: no JVD, supple, no adenopathy CV: regular rate, regular rhythm, no rubs,no murmur, S1, S2 Pulm: no distress, clear to auscultation, no wheeze, no rhonchi, breath sounds equal, no rales Abd: soft, nontender, no guarding, no rebound, no rigidity : hidalgo catheter in place. Ext: no edema Skin: good color, no rash, no cyanosis Psych: responds appropriately to questions, normal affect Neuro: oriented x3, CN2-12 intact grossly, motor intact, sensation intact Vital Signs Temp Pulse Resp BP Pulse Ox 01/20/19 15:51 97.6 F 61 18 184/81 H 96 Medical Decision Making ED Course and Treatment: 01/20/19 17:02 patient presents with reported mechanical fall, sustained facial abrasion and bruise, takes eliquis for atrial fibrillation. will get head ct to rule out ICH, cjeck labs rule out anemia, get ua to rule out uti. awaiting call back from dr. montes at the request of daughter. 01/20/19 17:38 after the fact, the daughter relays that the patient fell today which she originally did not report to me. 01/20/19 19:42 Chest X-ray reviewed by radiologist, shows: Acute CHF/pulmonary vascular congestion. 01/20/19 20:[address] arias to the hospitalist service, resident aware of admit. patient incidentally found have a cxr consistent with pulm edema with matching probnp. will give dose of iv lasix in the ED. patient was empirically started on iv abx for possible uti. patient sees dr. montes. i have discussed with dr. montes earlier and states that the patient has chronic hidalgo due to urinary emptying issues stemming from a remote bladder suspension surgery. he states it is ok to remove/replace catheter if necessary. - RAD Interpretation Narrative RAD Interpretations (Text): 01/20/19 20:03 CT Head FINDINGS: BRAIN: No acute intraparenchymal hemorrhage. No mass lesion. No CT evidence for acute territorial infarct. No midline shift or extra-axial collections. There is extensive periventricular white matter ischemic changes which appears chronic in nature. VENTRICLES: No hydrocephalus. ORBITS: The orbits are unremarkable. SINUSES AND MASTOIDS: The paranasal sinuses and mastoid air cells are clear. BONES: No fracture. SOFT TISSUES: Unremarkable. IMPRESSION: No acute intracranial abnormality. Extensive periventricular white matter ischemic change. No significant change compared to previous study. Electronically signed on Jan 20, 2019 8:03:09 PM EDT by: Willian Tellez M.D., Certified by [facility], Diagnostic Radiology Radiology Orders: 01/20/19 16:57 HEAD W/O CONTRAST [CT] Stat CHEST PORTABLE [RAD] Stat Hole Digger Operator: Radiologist Disposition/Present on Arrival - Present on Arrival Any Indicators Present on Arrival: No History of DVT/PE: No History of Uncontrolled Diabetes: No Urinary Catheter: Yes (retention from home DO NOT REMOVE as per ) History of Decub. Ulcer: No History Surgical Site Infection Following: None - Disposition Have Diagnosis and Disposition been Completed?: Yes Diagnosis: CHF (congestive heart failure) Disposition: HOSPITALIZED Disposition Time: 12:33 (not actual) Patient Plan: Admission Condition: STABLE
--- NOTE | 2019-01-20 18:07 | RAD ---
Date of service: 01/20/2019 HISTORY: CHF. COMPARISON: 12/29/2018. FINDINGS: LUNGS: No active pulmonary disease. PLEURA: No significant pleural effusion identified, no pneumothorax apparent. CARDIOVASCULAR: Cardiomegaly, mild pulmonary vascular congestion. Atherosclerotic calcifications identified primarily aortic arch. OSSEOUS STRUCTURES: No significant abnormalities. VISUALIZED UPPER ABDOMEN: Normal. OTHER FINDINGS: None. IMPRESSION: Acute CHF/pulmonary vascular congestion.
[2019-01-20 18:50] LABS: BASO # 0.02 K/mm3 (0.0-2.0); BASO % 0.2 % (0.0-3.0); EOS % 0.4 % (1.5-5.0); LYMPH # 1.5 (1.2-3.4); MEAN CELL VOLUME 88.2 fl (80.0-105.0); MEAN CORPUSCULAR HEMOGLOBIN 27.5 pg (25.0-35.0); MEAN CORPUSCULAR HGB CONC 31.3 g/dl (31.0-37.0); MEAN PLATELET VOLUME 9.7 fl (7.0-11.0); MONO # 0.7 (0.1-0.6); MONO % 7.6 % (1.0-6.0); RBC 3.63 10^6/uL (3.5-6.1); RED CELL DISTRIBUTION WIDTH 18.2 % (11.5-14.5); WHITE BLOOD COUNT 9.3 10^3/uL (4.5-11.0)
[2019-01-20 19:20] LABS: ALB/GLOB RATIO 1.2 (1.1-1.8); ALBUMIN 3.3 g/dL (3.0-4.8); CALCIUM 8.4 mg/dL (8.4-10.5)
[2019-01-20 19:33] LABS: URINE BILIRUBIN NEGATIVE (NEGATIVE); URINE BLOOD TRACE-INTACT (NEGATIVE); URINE GLUCOSE (UA) NEGATIVE (NEGATIVE); URINE LEUKOCYTE ESTERASE MODERATE Leu/uL (NEGATIVE); URINE PROTEIN 100 mg/dL (<30 mg/dL); URINE UROBILINOGEN 0.2 E.U./dL (<1 E.U./dL)
[2019-01-20 19:34] LABS: URINE APPEARANCE SLIGHT-CLOUDY (CLEAR); URINE COLOR LIGHT YELLOW (YELLOW)
[2019-01-20 19:36] LABS: URINE EPITHELIAL CELLS 0 - 2 /hpf (0-5)
[2019-01-20] MEDS ORDERED: cefTRIAXone 1 GM/100 ML BAG IVPB STA (20:11)
--- NOTE | 2019-01-20 20:18 | CARD ---
APPROVED REPORT Date of service: 01/20/2019 EKG Measurement Heart [id number] <Conclusion> Sinus bradycardia with premature atrial complexes Nonspecific ST and T wave abnormality Abnormal ECG
--- NOTE | 2019-01-20 21:03 | CP.PCM.HP ---
<Kvng Mcknight - Last Filed: 01/21/19 04:02> History of Present Illness - History of Present Illness History of Present Illness: PGY1 Medicine History and Physical Exam Note for Dr. Cox Patient is an 83-year-old F with PMH of atrial fibrillation and chronic hidalgo catheter who presents to [facility] for dizziness and 2 episodes of mechanical falls. Please note, Patient's daughter is at bedside and providing translation with permission of the Patient. Patient reports that her dizziness is exacerbated with movement but improved while at rest. Patient described the dizziness as feeling "lightheaded" and as though she is going to pass out. Of note, Patient sustained a fall 1 day prior during which she bruised her forehead and minor superficial abrasion to nose. Patient says she was using her 4 wheel walker at the time, and that she somehow tripped which caused the fall. Patient denied LOC, however this fall was unwitnessed, per Patient. Patient also fell w hile in the bathtub the next day (per Patient's family), which prompted them to call EMS. Per Patient's family, the Patient complains of dypsnea on exertion. Patient otherwise denies chest pain, weakness, fatigue, headache, fever, chills, nausea, vomiting, abdominal pain, dysuria, and/or diarrhea. PMD: Dr. Miranda Pharm: [facility] ([address]) in [place] PMH: atrial fibrillation on eliquis, HLD, HTN, obesity, uterine cancer s/p hysterectomy (14 years ago), GERD, depression, and kidney disease PSH: hysterectomy (14 years ago), gallbladder removal, appendectomy Meds: see MAR Allergies: NKDA Social History: lives alone at home. Denies smoking, drinking, drug use. Family History: mother had CAD. Father had prostate cancer. Present on Admission - Present on Admission Any Indicators Present on Admission: No History of DVT/PE: No History of Uncontrolled Diabetes: No Urinary Catheter: No Decubitus Ulcer Present: No Past Patient History - Infectious Disease Hx of Infectious Diseases: None - Past Medical History & Family History Past Medical History?: Yes - Past Social History Smoking Status: Never Smoked - CARDIAC Hx Cardiac Disorders: Yes (A-fib, on eliquis.) Hx Hypertension: Yes - PULMONARY Hx Respiratory Disorders: No Hx Asthma: No Hx Bronchitis: No Hx Chronic Obstructive Pulmonary Disease (COPD): No Hx Emphysema: No Hx Pneumonia: No Hx Respiratory Aspiration: No Hx Respiratory Tract Infection: No Hx Sleep Apnea: No Hx Tuberculosis: No - NEUROLOGICAL Hx Neurological Disorder: No Hx Alzheimer's Disease: No HX Cerebrovascular Accident: No Hx Dementia: No Hx Dizziness: No Hx Meningitis: No Hx Migraine: No Hx Parkinson's Disease: No Hx Seizures: No Hx Transient Ischemic Attacks (TIA): No - HEENT Hx HEENT Problems: Yes Hx Blind: No Hx Cataracts: Yes Hx Deafness: No Hx Difficulty Chewing: No Hx Epistaxis: No Hx Glaucoma: No Hx Macular Degeneration: No - RENAL Hx Chronic Kidney Disease: No Hx Dialysis: No Hx Kidney Stones: No Hx Neurogenic Bladder: Yes (retention cath at home) Hx Pyelonephritis: No Hx Renal (Kidney) Cancer: No Hx Renal Failure: No Other/Comment: Hidalgo cath changed in Dr Kessler office on 12/24/2018 DO NOT REMOVE as per Dr Cuba - ENDOCRINE/METABOLIC Hx Endocrine Disorders: No Hx Adrenal Cancer: No Hx Diabetes Insipidus: No Hx Diabetes Mellitus Type 1: No Hx Diabetes Mellitus Type 2: No Hx Hyperthyroidism: No Hx Hypothyroidism: No Hx Systemic Lupus Erythematosus: No - HEMATOLOGICAL/ONCOLOGICAL Hx Blood Disorders: Yes Hx AIDS: No Hx Anemia: Yes Hx Cancer: No Hx Chemotherapy: No Hx Cirrhosis: No Hx Hemophilia: No Hx Hepatitis A: No Hx Hepatitis B: No Hx Hepatitis C: No Hx Metastesis: No Hx Shingles: No Hx Sickle Cell Disease: No Hx Unexplained Bleeding: No Other/Comment: Hyperuricemia - INTEGUMENTARY Hx Dermatological Problems: No Hx Basil Cell: No Hx Eczema: No Hx Melanoma: No Hx Psoriasis: No Hx Squamous Cell: No - MUSCULOSKELETAL/RHEUMATOLOGICAL Hx Arthritis: Yes - GASTROINTESTINAL Hx Gastrointestinal Disorders: No Hx Colostomy: No Hx Crohn's Disease: No Hx Diverticulitis: No Hx Gall Bladder Disease: No Hx Gastroesophageal Reflux: Yes Hx Ileostomy: No Hx Liver Failure: No Hx Pancreatitis: No HX Swallowing Problems: No - GENITOURINARY/GYNECOLOGICAL Hx Urinary Tract Infection: Yes Other/Comment: + urinary catheter -- Dr Cuba - PSYCHIATRIC Hx Psychophysiologic Disorder: No Hx Anxiety: No Hx Bipolar Disorder: No Hx Depression: Yes Hx Emotional Abuse: No Hx Hallucinations: No Hx Panic Symptoms: No Hx Post Traumatic Stress Disorder: No Hx Psychosis: No Hx Physical Abuse: No Hx Schizophrenia: No Hx Sexual Abuse: No Hx Substance Use: No - SURGICAL HISTORY Hx Amputation: No Hx Appendectomy: Yes Hx Cholecystectomy: No Hx Gastric Bypass Surgery: No Hx Hysterectomy: No Hx Joint Replacement: Yes Hx Kidney Transplant: No Hx Liver Transplant: No Hx Mastectomy: No Hx Musculoskeletal Surgery: No Hx Open Heart Surgery: No Hx Orthopedic Surgery: No Hx Splenectomy: No Hx Valve Replacement: No - ANESTHESIA Hx Anesthesia: Yes Hx Anesthesia Reactions: No Hx Malignant Hyperthermia: No Meds Allergies/Adverse Reactions: Allergies Allergy/AdvReac Type Severity Reaction Status Date / Time No Known Allergies Allergy Verified 01/20/19 15:51 Physical Exam - Constitutional Appears: Non-toxic, No Acute Distress - Head Exam Head Exam: NORMOCEPHALIC. absent: ATRAUMATIC (3inch bruise on forehead. no hematoma. no fluctuation. no induration. ) - Eye Exam Eye Exam: EOMI, Normal appearance, PERRL Pupil Exam: NORMAL ACCOMODATION - ENT Exam ENT Exam: Mucous Membranes Moist, Normal Exam - Neck Exam Neck exam: Positive for: Normal Inspection - Respiratory Exam Respiratory Exam: NORMAL BREATHING PATTERN. absent: Accessory Muscle Use, Chest Wall Tenderness, Clear to Auscultation Bilateral (faint crackles in lower lung barbosa ), Respiratory Distress - Cardiovascular Exam Cardiovascular Exam: REGULAR RHYTHM, +S1, +S2 - GI/Abdominal Exam GI & Abdominal Exam: Normal Bowel Sounds, Soft. absent: Tenderness - Extremities Exam Extremities exam: Positive for: pedal edema (+2 pitting edema bilaterally ) - Back Exam Back exam: absent: CVA tenderness (L), CVA tenderness (R) - Neurological Exam Neurological exam: Alert, CN II-XII Intact, Oriented x3 Additional comments: Muscle strength in upper and lower extremities bilaterally 5/5 Gross sensation in tact No pronator drift No lower extremity drift - Psychiatric Exam Psychiatric exam: Normal Affect, Normal Mood - Skin Skin Exam: Dry, Intact, Normal Color, Warm Results - Vital Signs Recent Vital Signs: Last Vital Signs Temp 97.6 F 01/20/19 15:51 Pulse 63 01/20/19 19:20 Resp 17 01/20/19 19:20 BP 192/102 H 01/20/19 20:32 Pulse Ox 95 01/20/19 19:20 - Labs Result Diagrams: 01/20/19 18:40 01/20/19 18:40 Labs: Laboratory Results - last 24 hr 01/20/19 01/20/19 01/20/19 18:40 18:40 19:29 WBC 9.3 RBC 3.63 Hgb 10.0 L Hct 32.0 L MCV 88.2 MCH 27.5 MCHC 31.3 RDW 18.2 H Plt Count 247 MPV 9.7 Neut % (Auto) 75.8 H Lymph % (Auto) 16.0 L Mills % (Auto) 7.6 H Eos % (Auto) 0.4 L Baso % (Auto) 0.2 Lymph # (Auto) 1.5 Mills # (Auto) 0.7 H Eos # (Auto) 0.0 Baso # (Auto) 0.02 Absolute Neuts (auto) 7.06 H Sodium 139 Potassium 4.1 Chloride 106 Carbon Dioxide 25 Anion Gap 11 BUN 23 H Creatinine 1.1 Est GFR ( Amer) 58 Est GFR (Non-Af Amer) 48 Random Glucose 161 H Calcium 8.4 Total Bilirubin 0.2 AST 29 ALT 27 Alkaline Phosphatase 104 NT-Pro-B Natriuret Pep 3450 H Total Protein 6.1 Albumin 3.3 Globulin 2.8 Albumin/Globulin Ratio 1.2 Urine Color Light yellow Urine Appearance Slight-cloudy Urine pH 6.0 Ur Specific [place] 1.025 Urine Protein 100 H Urine Glucose (UA) Negative Urine Ketones Negative Urine Blood Trace-intact H Urine Nitrate Negative Urine Bilirubin Negative Urine Urobilinogen 0.2 Ur Leukocyte Esterase Moderate H Urine RBC 1 - 3 H Urine WBC 5 - 10 H Ur Epithelial Cells 0 - 2 Assessment & Plan - Assessment and Plan (Free Text) Assessment: Dizziness and Multiple Falls in the setting of known atrial fibrillation vs uncontrolled blood pressure - Cardio is on consult (Dr. Garcia). Follow up recs. - MUGA scan from previous admission - F/U EKG repeat - Neuro checks Q4 x24 hours - Head CT: negative for acute intracranial abnormalities (follow up official report) - Fall precautions - PT/OT eval and treat Dypsnea on Exertion likely due to CHF - BNP elevated 3450 (previously 1980 last month) - CXR: consistent with pulmonary edema bilaterally - Lasix given in ED - Continue Lasix 20mg IVP daily - Elevate head of bed 30 degrees - Strict I&O - Daily weight - Monitor Atrial Fibrillation (on Eliquis) - Resume home med eliquis - Resume home med amiodarone - Monitor in tele HTN - Resume home hydralazine - Resume home Zestril - Monitor Depression - Resume home med paxil 20mg PO daily GERD - Resume home med ptx 40 mg PO daily HLD - Resume home lipitor DVT ppx: on eliquis GI ppx: protonix 40mg po daily Diet: HHD Discussed with Dr. Brooke Mcknight PGY1 <Rickey Cox - Last Filed: 01/21/19 22:15> Results - Vital Signs Recent Vital Signs: Last Vital Signs Temp 97.9 F 01/21/19 18:00 Pulse 68 01/21/19 18:25 Resp 18 01/21/19 18:00 BP 125/66 01/21/19 18:25 Pulse Ox 98 01/21/19 06:00 - Labs Result Diagrams: 01/21/19 04:15 01/21/19 04:15 Labs: Laboratory Results - last 24 hr 01/20/19 01/21/19 01/21/19 18:40 04:15 04:15 WBC 8.5 RBC 3.70 Hgb 10.2 L Hct 32.3 L MCV 87.3 MCH 27.6 MCHC 31.6 RDW 18.0 H Plt Count 241 MPV 9.9 Neut % (Auto) 76.7 H Lymph % (Auto) 14.9 L Mills % (Auto) 7.7 H Eos % (Auto) 0.6 L Baso % (Auto) 0.1 Lymph # (Auto) 1.3 Mills # (Auto) 0.7 H Eos # (Auto) 0.1 Baso # (Auto) 0.01 Absolute Neuts (auto) 6.50 PT INR APTT Sodium 138 Potassium 3.7 Chloride 104 Carbon Dioxide 30 Anion Gap 8 L BUN 20 Creatinine 1.1 Est GFR ( Amer) 58 Est GFR (Non-Af Amer) 48 Random Glucose 138 H Calcium 8.5 Phosphorus 4.6 H Magnesium 1.4 L Total Bilirubin 0.3 AST 37 H D ALT 26 Alkaline Phosphatase 101 Troponin I 0.08 2.21 H* D Total Protein 5.9 Albumin 3.2 Globulin 2.7 Albumin/Globulin Ratio 1.2 Urine Color Urine Appearance Urine pH Ur Specific [place] Urine Protein Urine Glucose (UA) Urine Ketones Urine Blood Urine Nitrate Urine Bilirubin Urine Urobilinogen Ur Leukocyte Esterase Urine RBC Urine WBC Ur Epithelial Cells Urine Bacteria 01/21/19 01/21/19 01/21/19 04:15 11:30 14:00 WBC RBC Hgb Hct MCV MCH MCHC RDW Plt Count MPV Neut % (Auto) Lymph % (Auto) Mills % (Auto) Eos % (Auto) Baso % (Auto) Lymph # (Auto) Mills # (Auto) Eos # (Auto) Baso # (Auto) Absolute Neuts (auto) PT 15.0 H INR 1.35 APTT 30.1 48.9 H Sodium Potassium Chloride Carbon Dioxide Anion Gap BUN Creatinine Est GFR ( Amer) Est GFR (Non-Af Amer) Random Glucose Calcium Phosphorus Magnesium Total Bilirubin AST ALT Alkaline Phosphatase Troponin I 1.81 H* Total Protein Albumin Globulin Albumin/Globulin Ratio Urine Color Urine Appearance Urine pH Ur Specific [place] Urine Protein Urine Glucose (UA) Urine Ketones Urine Blood Urine Nitrate Urine Bilirubin Urine Urobilinogen Ur Leukocyte Esterase Urine RBC Urine WBC Ur Epithelial Cells Urine Bacteria 01/21/19 01/21/19 20:00 21:14 WBC RBC Hgb Hct MCV MCH MCHC RDW Plt Count MPV Neut % (Auto) Lymph % (Auto) Mills % (Auto) Eos % (Auto) Baso % (Auto) Lymph # (Auto) Mills # (Auto) Eos # (Auto) Baso # (Auto) Absolute Neuts (auto) PT INR APTT 103.2 H* Sodium Potassium Chloride Carbon Dioxide Anion Gap BUN Creatinine Est GFR ( Amer) Est GFR (Non-Af Amer) Random Glucose Calcium Phosphorus Magnesium Total Bilirubin AST ALT Alkaline Phosphatase Troponin I Total Protein Albumin Globulin Albumin/Globulin Ratio Urine Color Yellow Urine Appearance Sl cloudy Urine pH 5.5 Ur Specific [place] 1.025 Urine Protein 100 H Urine Glucose (UA) Negative Urine Ketones Negative Urine Blood Negative Urine Nitrate Negative Urine Bilirubin Negative Urine Urobilinogen 0.2 Ur Leukocyte Esterase Small H Urine RBC None Urine WBC 25 - 30 H Ur Epithelial Cells 6 - 8 H Urine Bacteria Mod Attending/Attestation - Attestation I have personally seen and examined this patient.: Yes I have fully participated in the care of the patient.: Yes I have reviewed all pertinent clinical information: Yes Notes (Text): 01/21/19 22:14 Seen and examined. discussed with resident. A&P as above.
[2019-01-20] MEDS ORDERED: Lidocaine 5% Patch TD STA (22:07)
[2019-01-21 04:41] LABS: INR 1.35; PARTIAL THROMBOPLASTIN TIME 30.1 Seconds (26.9-38.3)
[2019-01-21 05:05] LABS: BASO # 0.01 K/mm3 (0.0-2.0); BASO % 0.1 % (0.0-3.0); EOS # 0.1 (0.0-0.7); EOS % 0.6 % (1.5-5.0); HEMOGLOBIN 10.2 g/dL (12.0-16.0); LYMPH # 1.3 (1.2-3.4); LYMPH % 14.9 % (22.0-35.0); MEAN CELL VOLUME 87.3 fl (80.0-105.0); MEAN CORPUSCULAR HEMOGLOBIN 27.6 pg (25.0-35.0); MEAN CORPUSCULAR HGB CONC 31.6 g/dl (31.0-37.0); MEAN PLATELET VOLUME 9.9 fl (7.0-11.0); MONO # 0.7 (0.1-0.6); MONO % 7.7 % (1.0-6.0); RBC 3.7 10^6/uL (3.5-6.1); WHITE BLOOD COUNT 8.5 10^3/uL (4.5-11.0)
[2019-01-21 05:45] LABS: ALB/GLOB RATIO 1.2 (1.1-1.8); ALBUMIN 3.2 g/dL (3.0-4.8); CALCIUM 8.5 mg/dL (8.4-10.5)
[2019-01-21 05:47] LABS: TROPONIN I 2.21 ng/mL
[2019-01-21] MEDS ORDERED: Pantoprazole 40 mg EC Tab PO SCH ×2 (06:00→07:30)
[2019-01-21] MEDS ORDERED: Heparin25000 units/250ml 1/2NS 25,000 UNITS/250 ML BAG IV SCH (07:15)
--- NOTE | 2019-01-21 07:20 | CP.PCM.PN ---
<Kvng Mcknight - Last Filed: 01/21/19 07:17> Subjective - Date & Time of Evaluation Date of Evaluation: 01/21/19 Time of Evaluation: 07:17 - Subjective Subjective: House Doctor Note; I received a page regarding patient with elevated troponin. Initial troponin 0.08 and repeat troponin was 2.21. Patient was subsequently evaluated. EKG was ordered and completed and showed T-waves inversions in leads II, III, and aVF, as well as lateral leads V2-V6. Patient is currently not in chest pain. Ordered stat ASA loading dose, metoprolol, nitro sublingual, heparin drip (no bolus was administered, as the patient is on eliquis). Patient made NPO, awaiting possible cath; pending Cardiology recommendations. Dr. Garcia (Cardiology) was notified and will see the Patient today. Will follow patient closely. Kvng Mcknight PGY1 Objective - Vital Signs/Intake and Output Vital Signs (last 24 hours): Temp Pulse Resp BP Pulse Ox 97.4 F L 62 19 178/91 H 94 L 01/21/19 00:01 01/21/19 06:49 01/21/19 00:01 01/21/19 06:49 01/21/19 00:01 Intake and Output: 01/21/19 01/21/19 06:59 18:59 Intake Total 200 Output Total 2400 Balance -2200 - Medications Medications: Current Medications Acetaminophen (Tylenol 325mg Tab) 650 mg PO Q6H PRN PRN Reason: Pain, Mild (1-3) Last Admin: 01/20/19 23:05 Dose: 650 mg Amiodarone HCl (Cordarone) 200 mg PO DAILY [facility] Apixaban (Eliquis) 2.5 mg PO BID [facility]; Protocol Aspirin (Aspirin) 325 mg PO STAT STA Stop: 01/21/19 07:06 Atorvastatin Calcium (Lipitor) 80 mg PO STAT STA Stop: 01/21/19 07:08 Atorvastatin Calcium (Lipitor) 80 mg PO STAT STA Stop: 01/21/19 07:07 Furosemide (Lasix) 20 mg IVP DAILY [facility] Hydralazine HCl (Apresoline) 50 mg PO BID [facility] Last Admin: 01/21/19 06:49 Dose: 50 mg Heparin Sodium/Sodium Chloride (Heparin 15486 Units/250ml 1/2 Normal Saline) 25,000 units in 250 mls @ 9.253 mls/hr IV .Q24H [facility]; Protocol Lisinopril (Zestril) 40 mg PO DAILY [facility] Metoprolol Tartrate (Lopressor) 12.5 mg PO BID [facility] Last Admin: 01/20/19 23:01 Dose: 12.5 mg Nitroglycerin (Nitrostat Sl Tab) 0.4 mg SL Q5M PRN PRN Reason: chest pain Stop: 01/21/19 07:26 Pantoprazole Sodium (Protonix Ec Tab) 40 mg PO ACB [facility] Paroxetine HCl (Paxil) 20 mg PO 1800 [facility] - Labs Labs: 01/21/19 04:15 01/21/19 04:15 PT 15.0 SECONDS (9.4-12.5) H 01/21/19 04:15 INR 1.35 01/21/19 04:15 APTT 30.1 Seconds (26.9-38.3) 01/21/19 04:15 <Rickey Cox - Last Filed: 01/21/19 22:16> Objective - Vital Signs/Intake and Output Vital Signs (last 24 hours): Temp Pulse Resp BP Pulse Ox 97.9 F 68 18 125/66 98 01/21/19 18:00 01/21/19 18:25 01/21/19 18:00 01/21/19 18:25 01/21/19 06:00 Intake and Output: 01/21/19 01/22/19 18:59 06:59 Intake Total 83 714 Balance 83 714 - Medications Medications: Current Medications Acetaminophen (Tylenol 325mg Tab) 650 mg PO Q6H PRN PRN Reason: Pain, Mild (1-3) Last Admin: 01/21/19 11:29 Dose: 650 mg Amiodarone HCl (Cordarone) 200 mg PO DAILY [facility] Last Admin: 01/21/19 10:22 Dose: 200 mg Apixaban (Eliquis) 2.5 mg PO BID [facility]; Protocol Aspirin (Ecotrin) 325 mg PO DAILY [facility] Atorvastatin Calcium (Lipitor) 40 mg PO DIN [facility] Clopidogrel Bisulfate (Plavix) 75 mg PO DAILY [facility] Furosemide (Lasix) 20 mg IVP DAILY [facility] Last Admin: 01/21/19 10:23 Dose: 20 mg Hydralazine HCl (Apresoline) 50 mg PO TID [facility] Last Admin: 01/21/19 18:25 Dose: 50 mg Heparin Sodium/Sodium Chloride (Heparin 62353 Units/250ml 1/2 Normal Saline) 25,000 units in 250 mls @ 9.253 mls/hr IV .Q24H [facility]; Protocol Stop: 01/22/19 05:00 Last Titration: 01/21/19 21:58 Dose: 0 units/kg/hr, 0 mls/hr Lisinopril (Zestril) 40 mg PO DAILY [facility] Last Admin: 01/21/19 10:24 Dose: 40 mg Magnesium Oxide (Mag-Ox) 400 mg PO BID [facility] Stop: 01/22/19 23:59 Last Admin: 01/21/19 18:25 Dose: 400 mg Meclizine HCl (Antivert) 25 mg PO Q12 [facility] Last Admin: 01/21/19 13:58 Dose: 25 mg Metoprolol Tartrate (Lopressor) 12.5 mg PO BID [facility] Last Admin: 01/21/19 18:24 Dose: 12.5 mg Nitroglycerin (Nitrostat Sl Tab) 0.4 mg SL Q5M PRN PRN Reason: chest pain Pantoprazole Sodium (Protonix Ec Tab) 40 mg PO 0600 [facility] Paroxetine HCl (Paxil) 20 mg PO 1800 [facility] Last Admin: 01/21/19 18:25 Dose: 20 mg - Labs Labs: 01/21/19 04:15 01/21/19 04:15 PT 15.0 SECONDS (9.4-12.5) H 01/21/19 04:15 INR 1.35 01/21/19 04:15 APTT 103.2 Seconds (26.9-38.3) H* 01/21/19 21:14 Attending/Attestation - Attestation I have personally seen and examined this patient.: Yes I have fully participated in the care of the patient.: Yes I have reviewed all pertinent clinical information, including history, physical exam and plan: Yes
[2019-01-21] MEDS ORDERED: Potassium Chloride 20 mEq ER Tab PO ONE (08:33)
[2019-01-21] MEDS ORDERED: Magnesium Sulfate 2 gm/50 ml 2 GM/50 ML BAG IVPB ONE (08:48)
--- NOTE | 2019-01-21 08:50 | CP.PCM.PN ---
<Dylon Larry - Last Filed: 01/21/19 14:11> Subjective - Date & Time of Evaluation Date of Evaluation: 01/21/19 Time of Evaluation: 08:47 - Subjective Subjective: PGY-1 Medicine Progress note for Dr. White Patient seen and examined at bedside. Patient's daughter is at bedside. Patient is in no acute distress, she states that she had left-sided chest pain last night but the pain has resolved. She denies fevers, chills, headaches, shortness of breath, chest pain, abdominal pain, nausea, vomiting, diaphoresis, diarrhea, or any other complaints. Objective - Vital Signs/Intake and Output Vital Signs (last 24 hours): Temp Pulse Resp BP Pulse Ox 98.0 F 62 18 178/91 H 98 01/21/19 06:00 01/21/19 06:49 01/21/19 06:00 01/21/19 06:49 01/21/19 06:00 Intake and Output: 01/21/19 01/21/19 06:59 18:59 Intake Total 200 Output Total 2400 Balance -2200 - Medications Medications: Current Medications Acetaminophen (Tylenol 325mg Tab) 650 mg PO Q6H PRN PRN Reason: Pain, Mild (1-3) Last Admin: 01/20/19 23:05 Dose: 650 mg Amiodarone HCl (Cordarone) 200 mg PO DAILY [facility] Apixaban (Eliquis) 2.5 mg PO BID [facility]; Protocol Aspirin (Ecotrin) 325 mg PO DAILY [facility] Clopidogrel Bisulfate (Plavix) 75 mg PO DAILY [facility] Furosemide (Lasix) 20 mg IVP DAILY [facility] Hydralazine HCl (Apresoline) 50 mg PO BID [facility] Last Admin: 01/21/19 06:49 Dose: 50 mg Heparin Sodium/Sodium Chloride (Heparin 57352 Units/250ml 1/2 Normal Saline) 25,000 units in 250 mls @ 9.253 mls/hr IV .Q24H [facility]; Protocol Stop: 01/22/19 05:00 Last Admin: 01/21/19 07:25 Dose: 12 units/kg/hr, 9.253 mls/hr Lisinopril (Zestril) 40 mg PO DAILY [facility] Meclizine HCl (Antivert) 12.5 mg PO TID [facility] Metoprolol Tartrate (Lopressor) 12.5 mg PO BID [facility] Last Admin: 01/20/19 23:01 Dose: 12.5 mg Nitroglycerin (Nitrostat Sl Tab) 0.4 mg SL Q5M PRN PRN Reason: chest pain Pantoprazole Sodium (Protonix Ec Tab) 40 mg PO 0600 [facility] Paroxetine HCl (Paxil) 20 mg PO 1800 [facility] - Labs Labs: 01/21/19 04:15 01/21/19 04:15 PT 15.0 SECONDS (9.4-12.5) H 01/21/19 04:15 INR 1.35 01/21/19 04:15 APTT 30.1 Seconds (26.9-38.3) 01/21/19 04:15 - Constitutional Appears: Well, Non-toxic, No Acute Distress - Head Exam Head Exam: ATRAUMATIC, NORMAL INSPECTION Additional comments: There is a bruise on her left forehead. No other bruises or abrasions noted in the scalp. - Eye Exam Eye Exam: EOMI, Normal appearance, PERRL Pupil Exam: NORMAL ACCOMODATION - ENT Exam ENT Exam: Mucous Membranes Dry - Neck Exam Neck Exam: Normal Inspection - Respiratory Exam Respiratory Exam: Clear to Ausculation Bilateral, NORMAL BREATHING PATTERN. absent: Prolonged Expiratory Phase, Rales, Rhonchi, Wheezes, Respiratory Distress - Cardiovascular Exam Cardiovascular Exam: REGULAR RHYTHM, +S1, +S2. absent: Gallop, Rubs, Murmur - GI/Abdominal Exam GI & Abdominal Exam: Soft, Normal Bowel Sounds. absent: Guarding, Rigid, Tende rness - Exam Additional comments: Hidalgo catheter in place - Extremities Exam Extremities Exam: absent: Calf Tenderness, Joint Swelling, Pedal Edema Additional comments: Abrasion on left knee - Neurological Exam Neurological Exam: Alert, Awake, CN II-XII Intact, Oriented x3 - Psychiatric Exam Psychiatric exam: Normal Affect, Normal Mood - Skin Skin Exam: Abrasion (Noted on left knee), Dry, Normal Color, Warm Assessment and Plan - Assessment and Plan (Free Text) Assessment: Patient is an 83-year-old F with PMH of atrial fibrillation and chronic hidalgo catheter who presenting with dizziness and 2 episodes of mechanical falls. Plan: NSTEMI - Troponin: 0.08-->2.21-->1.81 - EKG showed T-waves inversions in leads II, III, and aVF, as well as lateral leads V2-V6 - Cardiology consulted, Dr. Garcia - Ordered stat ASA loading dose, metoprolol, nitro sublingual, heparin drip (no bolus was administered, as the patient is on eliquis) - Plan for cardiac cath on 01/22 - Hold Heparin drip at 5am on 01/22 for cardiac cath - Lipitor 40mg PO HS - Keep patient NPO after midnight - Continue to monitor HTN - Increase dose of home Hydralazine 50mg PO TID - Resume home Zestril 40mg PO QD - Resume home Lopressor 12.5mg PO BID - Continue to monitor CHF exacerbation - BNP elevated 3450 (previously 1980 last month) - CXR: consistent with pulmonary edema bilaterally - Lasix given in ED - Continue Lasix 20mg IVP daily - Elevate head of bed 30 degrees - Strict I&O - Daily weight - Continue to monitor Dizziness and Multiple Falls - Likely 2/2 atrial fibrillation vs uncontrolled blood pressure - Head CT: negative for acute intracranial abnormalities - MUGA scan from previous admission showed LVEF of 64% - Start Meclizine 25mg PO Q12 - Cardiology consulted, Dr. Garcia - Neurology consulted, Dr. Villanueva - Neuro checks Q4 x24 hours - Fall precautions - PT/OT eval and treat - Follow up orthostatics blood pressure Atrial Fibrillation - Resume home med Amiodarone 200mg PO QD - Resume home Lopressor 12.5mg PO BID - On Heparin drip - Hold home med Eliquis - Monitor in tele Depression - Resume home med paxil 20mg PO daily GERD - Resume home med ptx 40 mg PO daily HLD - Lipitor 40mg PO HS DVT ppx: on Heparin drip GI ppx: protonix 40mg po daily Patient seen and case discussed with attending, Dr. White. Dylon Larry, PGY-1 <Jimmy White - Last Filed: 01/24/19 10:09> Objective - Vital Signs/Intake and Output Vital Signs (last 24 hours): Temp Pulse Resp BP Pulse Ox 98.4 F 77 19 153/80 H 94 L 01/23/19 17:27 01/23/19 18:17 01/23/19 17:27 01/23/19 18:17 01/23/19 17:27 - Labs Labs: 01/23/19 08:30 01/23/19 08:30 PT 15.0 SECONDS (9.4-12.5) H 01/21/19 04:15 INR 1.35 01/21/19 04:15 APTT 49.3 Seconds (26.9-38.3) H 01/22/19 06:00 Attending/Attestation - Attestation I have personally seen and examined this patient.: Yes I have fully participated in the care of the patient.: Yes I have reviewed all pertinent clinical information, including history, physical exam and plan: Yes Notes (Text): 01/24/19 10:09 Medical record note made by the resident after discussion with my direction and input after the patient was personally seen and examined by me. I have reviewed the chart and agree that the record accurately reflects by personal performance of the history, physical exam, data review, and medical decision-making, in the course for the patient. I have also personally directed the plan of care.
[2019-01-21] MEDS: Magnesium Oxide 400 mg Tab UD PO SCH ×2 (10:23→18:25)
--- NOTE | 2019-01-21 10:58 | CT ---
Date of service: 01/20/2019 PROCEDURE: CT HEAD WITHOUT CONTRAST. HISTORY: trauma COMPARISON: 12/29/2018 TECHNIQUE: Axial computed tomography images were obtained through the head/brain without intravenous contrast. Radiation dose: Total exam DLP = 802.99 mGy-cm. This CT exam was performed using one or more of the following dose reduction techniques: Automated exposure control, adjustment of the mA and/or kV according to patient size, and/or use of iterative reconstruction technique. FINDINGS: HEMORRHAGE: No intracranial hemorrhage. BRAIN: No mass effect or edema. Severe chronic microvascular changes are seen in the deep white matter. There are no acute findings. Moderate atrophy VENTRICLES: Unremarkable. No hydrocephalus. CALVARIUM: Unremarkable. PARANASAL SINUSES: Unremarkable as visualized. No significant inflammatory changes. MASTOID AIR CELLS: Unremarkable as visualized. No inflammatory changes. OTHER FINDINGS: The report concurs with the preliminary [facility] report IMPRESSION: Severe chronic microvascular changes are seen in the deep white matter. There are no acute findings. Moderate atrophy
--- NOTE | 2019-01-21 16:33 | CON ---
DATE: 01/21/2019 CONSULT SERVICE CARDIOLOGY REASON FOR CONSULTATION AND FOLLOWUP: Chest pain, [id number] myocardial infarction, and history of chronic atrial fibrillation. BRIEF CLINICAL HISTORY: This is an 83-year-old female, with past medical history significant for paroxysmal atrial fibrillation, on Eliquis and history of chronic indwelling Workman catheter, presented to emergency room because of the two episodes of mechanical fall after having a dizziness. The patient says that whenever she changes position or moves her head, she feels very dizzy. Yesterday she fell in the bathroom and again twice who came to the emergency room. 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 Repeat EKG shows significant T inversion V3-V6, it is medical T inversion suggestive of ischemia and first troponin was negative, later on the repeat troponin which came up to 2.21. Currently the patient denies any chest pain. Daughter is at the bedside. PAST MEDICAL HISTORY: Significant for paroxysmal atrial fibrillation, hypertension, hyperlipidemia, history of uterine cancer, hysterectomy 14 years ago, history of chronic renal insufficiency, history of indwelling Workman catheter, and history of multiple UTIs in the past. The patient came in with elevated blood pressure also; admitting blood pressure 192/102. Past history also significant for cardiac catheterization in 2012 that shows ejection fraction 35% to 40%, LAD 40% to 50% stenosis, and nonobstructive coronary artery disease. PREVIOUS CARDIAC WORKUP: As follows; the patient had a cardiac catheterization done, dated 12/28/2016 that revealed ejection fraction 35% to 40%; LAD 50% to 55% stenosis in the other vessels did not show any significant stenosis and it was suggested nonischemic cardiomyopathy, nonobstructive coronary artery disease, and EDP was in the range of 14. Previous EKG also shows nonspecific ST-T changes. Again catheterization did was 12/28/2016. At that time, cardiac catheterization done because of abnormal stress test. The patient had attempted PIEDAD cardioversion, but the patient failed to remain in sinus and reverted back to AFib, and since then the patient is on maintained dose of Eliquis and on amiodarone. The patient remains in sinus most of the time, but sometime off and on goes back into AFib especially when the patient develops UTI because the patient has indwelling Workman catheter. The patient's last echocardiography done on 09/17/2018 that revealed, read by Dr. Roberts, normal LV function, ejection fraction within the normal limit, moderate aortic sclerosis, moderate aortic regurgitation, mild mitral regurgitation, moderate tricuspid regurgitation, moderate pulmonary hypertension read by Dr. Roberts, RV systolic pressure reported at 50 mmHg, and ejection fraction calculated 58%. PAST SURGICAL HISTORY: Significant for as mentioned cardiac catheterization on 12/28/2016. Also past history significant for hysterectomy for cervical cancer, status post radiation; history of appendectomy and cholecystectomy. After the hysterectomy, the patient had recurrent UTI and Workman catheter; recently catheter was removed. The patient sometime used to self catheterize herself and that causes a lot of UTIs in the past and admitted with UTIs and AFib with rapid ventricular rate. Since the patient's UTI symptoms improved, the patient is in sinus, but still on Eliquis because the patient goes back and forth in AFib. ALLERGIES: DENIES ANY ALLERGY. CURRENT MEDICATIONS: The patient is taking medications; metoprolol tartrate 12.5 twice a day, lisinopril 40 mg daily, Nexium 40 mg daily, Eliquis 2.5 mg b.i.d., atorvastatin 10 mg daily, amiodarone 200 mg daily, hydralazine 50 p.o. b.i.d., and Paxil and Ambien. REVIEW OF SYSTEMS: As per HPI. PHYSICAL EXAMINATION: As follows; VITAL SIGNS: Height of the patient 5 feet 3 inches, weight of the patient 170 pounds, and body mass index 30 kg/m2. Rest of the vitals; temperature afebrile, heart rate 62, and blood pressure 178/91. HEENT: PERRLA. Extraocular muscles intact. NECK: Supple. No carotid bruits or thyromegaly. CHEST: Clear to auscultation. HEART: S1 and S2 regular. ABDOMEN: Soft. EXTREMITY: Clubbing and cyanosis negative. LABORATORY DATA: EKG #1 on admission shows normal sinus with nonspecific ST-T changes noted, heart rate of 58 and bradycardia. Repeat EKG in the morning shows a symmetrical T-inversion V3-V6. Blood workup as follows; WBC 8.5, hemoglobin 10.8, hematocrit 32.3, and platelet count 241. Chemistry shows sodium 130, potassium 3.7, chloride 104, carbon dioxide 30, anion gap of , BUN 20, and creatinine 1.1. Troponin 0.21 and magnesium 1.4. IMPRESSION: An 83-year-old female, with a past medical history significant for nonobstructive coronary artery disease, status post cardiac catheterization in 12/2016, left anterior descending 50% to 55%, and history of paroxysmal atrial fibrillation secondary to recurrent urinary tract infection, admitted with the dizziness, possible benign positional vertigo, has a fall twice but troponin positive, progressively increasing. The patient's last had chest pain with significant ST-T changes and symmetrical T wave inversion. The patient's last dose of Eliquis last night and possible non-ST segment elevation myocardial infarction, hypertension, hyperlipidemia, benign positional vertigo, and preserved left ventricular function, last echoed in September. RECOMMENDATIONS: Start heparin, continue heparin. Hold Eliquis, load with the Plavix. Continue aspirin, beta-allyson, and amiodarone. Cardiac catheterization tomorrow 36-48 hours after the last dose of Eliquis. Discussed also with the patient's daughter, Debra, telephone number [phone]. Also we will call Dr. Villanueva to assess the patient for dizziness and possible benign positional vertigo. We will follow with you. We will get lipid profile, TSH, and hemoglobin A1c. Thank you Dr. Soliman for providing us the opportunity in taking care of the patient, Emily Young. Jimmy Garcia MD
--- NOTE | 2019-01-21 20:06 | CARD ---
APPROVED REPORT Date of service: 01/21/2019 EKG Measurement Heart [id number] [id number] <Conclusion> Normal sinus rhythm Marked T wave abnormality, consider inferolateral ischemia Prolonged QT Abnormal ECG
--- NOTE | 2019-01-21 20:50 | CON ---
DATE: 01/21/2019 HISTORY OF PRESENT ILLNESS: This is an 83-year-old female with past medical history of atrial fibrillation and came to emergency room with dizziness and the patient had fall at home. Daughter at bedside and described that the patient when lying feeling dizzy with spinning sensation. No nausea. No vomiting. The patient also fell while in the tub and brought her here for further management. PAST MEDICAL HISTORY: Atrial fibrillation, on Eliquis; hypertension; obesity; uterine cancer, status post hysterectomy; GERD; and depression. ALLERGIES: NO KNOWN DRUG ALLERGIES. REVIEW OF SYSTEMS: A 10-point review of systems was negative. PHYSICAL EXAMINATION: VITAL SIGNS: Blood pressure 192/102. NEUROLOGIC: Cranial nerves II through XII were tested. Pupils reactive. EOM intact. Visual barbosa full. No facial asymmetry. Tongue midline. Motor examination; spontaneous movements of the extremities noted. Deep tendon reflexes 1+. Both plantars are downgoing. Sensory appears intact. Cerebellar gait deferred. DIAGNOSTIC DATA: CAT scan of head negative. No intracranial abnormality. LABORATORY DATA: WBC 9.3, hemoglobin 10, hematocrit 32, and platelet 247. Sodium 139, potassium 4.1, chloride 106, CO2 of 25, glucose 161, BUN 23, and creatinine 1.1. IMPRESSION: Dizziness and fall and with atrial fibrillation, on Eliquis. PLAN: Continue present management and we will follow up the patient physical therapy for gait training and we will add meclizine 25 mg p.o. every 8 hours p.r.n. daily for dizziness. Maury Villanueva MD
[2019-01-21 21:15] LABS: PH,URINE 5.5 (4.7-8.0); URINE BILIRUBIN NEGATIVE (NEGATIVE); URINE BLOOD NEGATIVE (NEGATIVE); URINE GLUCOSE (UA) NEGATIVE (NEGATIVE); URINE LEUKOCYTE ESTERASE SMALL Leu/uL (NEGATIVE); URINE PROTEIN 100 mg/dL (<30 mg/dL); URINE UROBILINOGEN 0.2 E.U./dL (<1 E.U./dL)
[2019-01-21 21:18] LABS: URINE APPEARANCE SL CLOUDY (CLEAR); URINE COLOR YELLOW (YELLOW)
[2019-01-21 21:52] LABS: URINE BACTERIA MOD /hpf; URINE WBC 25 - 30 /hpf (0-6)
[2019-01-22] MEDS: Pantoprazole 40 mg EC Tab PO SCH (05:41)
[2019-01-22 06:51] LABS: BASO # 0.03 K/mm3 (0.0-2.0); BASO % 0.4 % (0.0-3.0); EOS # 0.1 (0.0-0.7); EOS % 0.8 % (1.5-5.0); HEMOGLOBIN 10.4 g/dL (12.0-16.0); LYMPH # 1.2 (1.2-3.4); LYMPH % 15.9 % (22.0-35.0); MEAN CELL VOLUME 88.1 fl (80.0-105.0); MEAN CORPUSCULAR HEMOGLOBIN 27.4 pg (25.0-35.0); MEAN CORPUSCULAR HGB CONC 31.1 g/dl (31.0-37.0); MONO # 0.5 (0.1-0.6); MONO % 6.9 % (1.0-6.0); RBC 3.79 10^6/uL (3.5-6.1); RED CELL DISTRIBUTION WIDTH 18.8 % (11.5-14.5); WHITE BLOOD COUNT 7.6 10^3/uL (4.5-11.0)
[2019-01-22 07:12] LABS: ALB/GLOB RATIO 1.2 (1.1-1.8); ALBUMIN 3.2 g/dL (3.0-4.8); CALCIUM 8.5 mg/dL (8.4-10.5)
[2019-01-22] MEDS ORDERED: Verapamil 2 ML ONE (09:09)
[2019-01-22] MEDS ORDERED: Lidocaine PF 2% (5 ml) Inj (For Cardiac Arrhy) ONE (09:09)
[2019-01-22] MEDS ORDERED: Iohexol 350mgl/ml 50 ML ONE (09:10)
[2019-01-22] MEDS ORDERED: Iodixanol 320 MG/ML 100 ML BOTTLE IV ONE (09:10)
[2019-01-22] MEDS ORDERED: Nitroglycerin 50mg in D5W 50 MG/250 ML BOTTLE IV ONE (09:10)
[2019-01-22] MEDS ORDERED: Iodixanol 320 MG/ML 200 ML BOTTLE IV ONE (09:10)
[2019-01-22] MEDS ORDERED: Midazolam 2 MG/2 ML VIAL ONE (09:25)
--- NOTE | 2019-01-22 09:26 | CARD ---
APPROVED REPORT Date of service: 01/22/2019 EKG Measurement Heart [id number] <Conclusion> Normal sinus rhythm Marked T wave abnormality, consider anterolateral ischemia Prolonged QT Abnormal ECG
[2019-01-22 09:47] LABS: FREE T4 2.89 ng/dL (0.78-2.19)
[2019-01-22 10:00] LABS: T3 0.79 ng/mL (0.97-1.69)
[2019-01-22] MEDS ORDERED: Adenosine 90 mg/30mL IV ONE (10:05)
[2019-01-22] MEDS ORDERED: Eptifibatide 20 mg/10mL Inj IVP ONE (10:21)
[2019-01-22] MEDS ORDERED: Sodium Chloride 0.9% 1,000 ML IV SCH (11:00)
--- NOTE | 2019-01-22 11:39 | CPOSTOP ---
DATE: 01/22/2019 CARDIOVASCULAR POST PROCEDURE NOTE PHYSICIAN: Dr. Jimmy Garcia. 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 TYPE OF SEDATION: Moderate conscious sedation. Total 2 mg of Versed, 100 mg of fentanyl given periodically, started 1 mg of Versed and 50 of fentanyl. PRE-PROCEDURE DIAGNOSES: Unstable angina, acute coronary syndrome, [id number] myocardial infarction. PROCEDURE PERFORMED: Left heart catheterization, stenting of mid left anterior descending, stenting of distal left anterior descending with drug eluting stent, and FFR before PTCA of LAD. FINDINGS: 70% stenosis mid and distal LAD. FFR 0.79, troponin 2.21, Non ST myocardial infarction. FINAL DIAGNOSIS: One vessel critical disease. VASCULAR ACCESS SITE: 1. Left radial attempted but because of very torturous left radial unable to take the catheter. 2. Right femoral artery. CLOSURE DEVICE: TR Band left radial Mynx for right femoral artery. TOTAL RADIATION DOSE: 22926 milligray unit. CUMULATIVE DOSE: 2142 milligray unit. TOTAL FLUORO TIME: 11.3 minutes. Jimmy Garcia MD MTDD
--- NOTE | 2019-01-22 13:24 | CP.PCM.PN ---
<Juan Forrest - Last Filed: 01/22/19 13:12> Subjective - Date & Time of Evaluation Date of Evaluation: 01/22/19 Time of Evaluation: 13:12 - Subjective Subjective: Medicine Progress Note for Dr. White Patient seen and examined at bedside. No acute overnight events. Patient went for cardiac catherization today. Patient denied any CP, SOB, n/v/d, abdominal pain, fever, chills, MILLIGAN, or dizziness. Objective - Vital Signs/Intake and Output Vital Signs (last 24 hours): Temp Pulse Resp BP Pulse Ox 98.2 F 64 18 153/82 H 98 01/22/19 06:00 01/22/19 06:00 01/22/19 06:00 01/22/19 06:00 01/22/19 06:00 Intake and Output: 01/22/19 01/22/19 06:59 18:59 Intake Total 1027 Output Total 400 Balance 627 - Medications Medications: Current Medications Acetaminophen (Tylenol 325mg Tab) 650 mg PO Q6H PRN PRN Reason: Pain, Mild (1-3) Last Admin: 01/21/19 11:29 Dose: 650 mg Amiodarone HCl (Cordarone) 200 mg PO DAILY [facility] Last Admin: 01/21/19 10:22 Dose: 200 mg Apixaban (Eliquis) 2.5 mg PO BID [facility]; Protocol Aspirin (Ecotrin) 325 mg PO DAILY [facility] Atorvastatin Calcium (Lipitor) 40 mg PO DIN [facility] Clopidogrel Bisulfate (Plavix) 75 mg PO DAILY [facility] Furosemide (Lasix) 20 mg IVP DAILY [facility] Last Admin: 01/21/19 10:23 Dose: 20 mg Hydralazine HCl (Apresoline) 50 mg PO TID [facility] Last Admin: 01/21/19 18:25 Dose: 50 mg Hydralazine HCl (Apresoline) 10 mg PO QID PRN PRN Reason: FOR SBP >170 Sodium Chloride (Sodium Chloride 0.9%) 1,000 mls @ 100 mls/hr IV .Q10H [facility] Stop: 01/22/19 18:00 Lisinopril (Zestril) 40 mg PO DAILY [facility] Last Admin: 01/21/19 10:24 Dose: 40 mg Magnesium Oxide (Mag-Ox) 400 mg PO BID [facility] Stop: 01/22/19 23:59 Last Admin: 04/17/19 18:25 Dose: 400 mg Meclizine HCl (Antivert) 25 mg PO Q12 [facility] Last Admin: 01/21/19 23:30 Dose: 25 mg Metoprolol Tartrate (Lopressor) 12.5 mg PO BID [facility] Last Admin: 01/21/19 18:24 Dose: 12.5 mg Nitroglycerin (Nitrostat Sl Tab) 0.4 mg SL Q5M PRN PRN Reason: chest pain Pantoprazole Sodium (Protonix Ec Tab) 40 mg PO 0600 [facility] Last Admin: 01/22/19 05:41 Dose: 40 mg Paroxetine HCl (Paxil) 20 mg PO 1800 [facility] Last Admin: 01/21/19 18:25 Dose: 20 mg - Labs Labs: 01/22/19 06:00 01/22/19 06:00 PT 15.0 SECONDS (9.4-12.5) H 01/21/19 04:15 INR 1.35 01/21/19 04:15 APTT 49.3 Seconds (26.9-38.3) H 01/22/19 06:00 - Constitutional Appears: No Acute Distress - Head Exam Head Exam: NORMAL INSPECTION - Eye Exam Eye Exam: Normal appearance Pupil Exam: NORMAL ACCOMODATION - ENT Exam ENT Exam: Mucous Membranes Moist, Normal Exam - Respiratory Exam Respiratory Exam: Clear to Ausculation Bilateral. absent: Rales, Rhonchi, Wheezes - Cardiovascular Exam Cardiovascular Exam: RRR, +S1, +S2. absent: Gallop, Rubs, Murmur - GI/Abdominal Exam GI & Abdominal Exam: Soft. absent: Distended, Guarding, Tenderness, Rebound - Extremities Exam Extremities Exam: Normal Inspection - Back Exam Back Exam: NORMAL INSPECTION - Neurological Exam Neurological Exam: Alert, Awake, Oriented x3 - Psychiatric Exam Psychiatric exam: Normal Affect, Normal Mood - Skin Skin Exam: Normal Color, Warm Assessment and Plan - Assessment and Plan (Free Text) Assessment: Patient is an 83-year-old F with PMH of atrial fibrillation and chronic hidalgo catheter who presented with dizziness and 2 episodes of mechanical falls and subsequently was found to have NSTEMI. Patient went for cardiac catherization today with BIPIN placement. Plan: NSTEMI - s/p cardiac catherization: 70% LAD stenosis, 2 BIPIN in the mid and distal LAD - Cont DAPT, Lisinopril, Metoprolol, Lipitor - Cardiology consulted, Dr. Garcia HTN - Cont Hydralazine 50mg PO TID - Cont Zestril 40mg PO daily - Cont Lopressor 12.5mg PO BID CHFpEF - Clinically improved/stable, exacerbation resolved - BNP elevated 3450 (previously 1979 last month) - CXR: consistent with pulmonary edema bilaterally - Continue Lasix 20mg IVP daily - Elevate head of bed 30 degrees - Strict I&O - Daily weight Dizziness and Multiple Falls - Likely 2/2 uncontrolled blood pressure - Head CT: negative for acute intracranial abnormalities - MUGA scan from previous admission showed LVEF of 64% - Cont Meclizine 25mg PO Q12 - Neurology consulted, Dr. Villanueva - Neuro checks Q4 x24 hours - Fall precautions - PT/OT eval and treat Paroxysmal Atrial Fibrillation - Cont Amiodarone 200mg PO QD - Cont Lopressor 12.5mg PO BID - Eliquis 2.5 mg PO BID Depression - Cont paxil 20mg PO daily GERD - Cont Protonix 40 mg PO daily HLD - Lipitor 40mg PO HS DVT ppx: Eliquis GI ppx: protonix 40mg po daily Patient seen and case discussed with attending, Dr. White. Toni Forrest DO PGY2 <Jimmy White - Last Filed: 01/24/19 10:08> Objective - Vital Signs/Intake and Output Vital Signs (last 24 hours): Temp Pulse Resp BP Pulse Ox 98.4 F 77 19 153/80 H 94 L 01/23/19 17:27 01/23/19 18:17 01/23/19 17:27 01/23/19 18:17 01/23/19 17:27 - Labs Labs: 01/23/19 08:30 01/23/19 08:30 PT 15.0 SECONDS (9.4-12.5) H 01/21/19 04:15 INR 1.35 01/21/19 04:15 APTT 49.3 Seconds (26.9-38.3) H 01/22/19 06:00 Attending/Attestation - Attestation I have personally seen and examined this patient.: Yes I have fully participated in the care of the patient.: Yes I have reviewed all pertinent clinical information, including history, physical exam and plan: Yes Notes (Text): 01/24/19 10:08 Medical record note made by the resident after discussion with my direction and input after the patient was personally seen and examined by me. I have reviewed the chart and agree that the record accurately reflects by personal performance of the history, physical exam, data review, and medical decision-making, in the course for the patient. I have also personally directed the plan of care.
[2019-01-22] MEDS: Aspirin 325 mg EC Tablets PO SCH (13:50)
--- NOTE | 2019-01-22 13:56 | PN ---
DATE: 01/22/2019 REASON FOR CONSULTATION AND FOLLOWUP: Chest pain, [id number] myocardial infarction, and history of paroxysmal atrial fibrillation. BRIEF HISTORY: This is an 83-year-old female with past medical history significant for paroxysmal atrial fibrillation on Eliquis, history of indwelling Workman catheter after hysterectomy, recurrent multiple UTIs, admitted with after having a two episodes of dizziness and fell down. Initial troponin is negative, repeat troponin was positive 2.31 after having chest pain. Pt. was treated for NSTEMI on Heparin and Beta-allyson, The patient was taken to the cardiac catheterization found to be mid LAD 70% stenosis initially with 50% to 55% six years ago the cardiac catheterization in 2012, but it look a little bit worse, but not sufficient, I have to put the stent, so FFR was done and the both lesions found to be in 0.79 FFR, so in view of positive FFR , positive troponin and chest pain so stenting of mid and distal LAD was done with reduction of the stenosis from 70% to 80% to 0. The patient tolerated the procedure well. RECOMMENDATION: We will continue Eliquis as before start from tomorrow after evening and addition to that, we will add Plavix 75 mg daily, also the patient was seen by Dr. Villanueva, because the patient having dizziness and suggested to the meclizine. We will continue meclizine and aggressive control of blood pressure. Further recommendation with hospital course. We will follow aggressive control and blood pressure. We will follow with you. We will simplify the medication. Thank you Dr. Soliman for providing us the opportunity in taking care of the patient, Emily Young. Jimmy Garcia MD JULY
[2019-01-22] MEDS ORDERED: Bacitracin 500 Units/gm Oint Foilpak UD ONE (15:53)
[2019-01-22] MEDS: Magnesium Oxide 400 mg Tab UD PO SCH ×2 (17:20→17:29)
[2019-01-22 17:26] LABS: CALCIUM 8.2 mg/dL (8.4-10.5)
[2019-01-22 17:28] LABS: BASO # 0.02 K/mm3 (0.0-2.0); BASO % 0.2 % (0.0-3.0); EOS % 0.5 % (1.5-5.0); HEMOGLOBIN 9.4 g/dL (12.0-16.0); LYMPH # 1.3 (1.2-3.4); LYMPH % 15.7 % (22.0-35.0); MEAN CELL VOLUME 89.2 fl (80.0-105.0); MEAN CORPUSCULAR HEMOGLOBIN 27.4 pg (25.0-35.0); MEAN CORPUSCULAR HGB CONC 30.7 g/dl (31.0-37.0); MONO # 0.5 (0.1-0.6); RBC 3.43 10^6/uL (3.5-6.1); RED CELL DISTRIBUTION WIDTH 19.3 % (11.5-14.5); WHITE BLOOD COUNT 8.2 10^3/uL (4.5-11.0)
--- NOTE | 2019-01-22 18:21 | CARD ---
APPROVED REPORT Date of service: 01/22/2019 Procedure(s) performed: Left Heart Catheterization PTCA with Stenting of Mid LAD with BIPIN PTCA with Stenting of Distal LAD with BIPIN FFR of LAD 0.79 HISTORY The patient is a 83 year-old female with a history of : previous MN (> 7 days), most recent EF: 64%. (EF Method: RADIONUCLIDE), previous CHF, renal failure without dialysis, chronic lung disease, previous diagnostic cath, hypertension , dyslipidemia , Admitted after a fall and NSTEMI, Hx of previous cath 5-6 years ago Non Obst CAD MidLAD 50-55% stenosis, PAF, Multilple admission with urosepsis.. INDICATION The indication(s) include : non-STEMI . CASE TECHNIQUE The patient was brought urgently to the Cardiac Catheterization Laboratory in a fasting state and was prepped and draped in a sterile manner. The left wrist / right femoral Artery was infiltrated with 2% Lidocaine subcutaneous anesthesia. A 6FR GLIDESHEATH ACCESS KIT sheath was inserted into the right femoral artery without difficulty. Coronary angiography was performed using coronary diagnostic catheters. The left coronary system was accessed and visualized with a Diagnostic,5F JL 4 CATH DXT 100 CM catheter. The right coronary system was accessed and visualized with a Diagnostic ,5F JL 4 CATH DXT 100 CM catheter. The left ventricle was accessed and visualized with a 5F PIGTAIL 145 CATH DXT 110 CM catheter. Left ventricular/Aortic Valve gradient assessed on pullback. Left ventriculogram was performed in HWANG projection. Closure device was deployed with a 6 Fr / 7 Fr MynxGrip without any complications. The patient tolerated the procedure well and there were no complications associated with the procedure. cath started from Left radial acccess but b/c severe tortousity of radial artery diagnostic cather could not be advanced so RFA access obtained and cath completed. Vessel Analysis The patient's coronary anatomy is right dominant. The left main coronary artery is a medium size vessel with intimal irregularities. The left main bifurcates to the left anterior descending and circumflex. The left anterior descending artery is a medium size vessel with diffuse calcification noted throughout this vessel and with significant stenosis. There is a 70% stenosis in the mid segment. two stenoses mid and distal LAD noted The first diagonal branch is a small size vessel with diffuse calcification noted throughout this vessel and without significant stenosis. The second diagonal branch is a small size vessel with diffuse calcification noted throughout this vessel and without significant stenosis. The third diagonal branch is a small size vessel with diffuse calcification noted throughout this vessel and without significant stenosis. The circumflex artery is a medium size vessel with diffuse calcification noted throughout this vessel and without significant stenosis. The first obtuse marginal branch is a size vessel with diffuse calcification noted throughout this vessel and without significant stenosis. The right coronary artery is a large size vessel with diffuse calcification noted throughout this vessel and without significant stenosis. There is a 30-40% stenosis in the proximal, Mid and distal segment. The right posterior descending artery is a large size vessel with diffuse calcification noted throughout this vessel and without significant stenosis. The right posterolateral branch is a medium size vessel with diffuse calcification noted throughout this vessel and without significant stenosis. Left Ventricle The left ventricle is normal in size with Normal contractility. The left ventricular ejection fraction is estimated to be 55-60%. The left ventricular end diastolic pressure is 12-14 mmHg. Though aortic Valve appears Sclerotic and some what difficult to Cross with pig tail catheter, so AL1 used and easily crossed and no significant gradient across aortic valve noted. PCI Technique Lesion Anticoagulation was achieved with Heparin and Integrellin boluses. Percutaneous coronary intervention was performed on the mid left anterior descending artery segment. The lesion stenosis prior to intervention was 70% with ULICES 2 flow. A 6 Fr XB 3.5 Guide Catheter was used to engage the ostium. A 0.035 x 260 cm J Tip Interventional Guidewire was used to cross the lesion. BALLOON DILATION A Balloon catheter 2.0 x 12 mm Sprinter RX was inserted and inflated up to 8.00atm for 10seconds. STENT DEPLOYMENT A drug-eluting stent 2.5 x 15 mm Alpine BIPIN was inserted and inflated up to 12.00atm for 21seconds. POST STENT DEPLOYMENT BALLOON DILATION A Balloon catheter 3.0 x 9 mm Sprinter RX was inserted and inflated up to 14.00atm for 18seconds. Final angiography reveals 0 % stenosis with ULICES 3 flow. PCI Technique Lesion 2 Percutaneous Coronary Intervention was performed on the distal left anterior descending artery segment. The lesion stenosis prior to intervention was 70% with ULICES 2 flow. A 6 Fr XB 3.5 Guide Catheter was used to engage the ostium. A 0.035 x 260 cm J Tip Interventional Guidewire was used to cross the lesion. BALLOON DILATION A Balloon catheter 2.0 x 12 mm Sprinter RX was inserted and inflated up to 8.0atm for 15seconds. STENT DEPLOYMENT A drug-eluting stent 2.25 x 12 mm Alpine BIPIN was inserted and inflated up to 12atm for 20seconds. Final angiography reveals 0 % stenosis with UILCES 3 flow. Conclusion Critical One Vessel Mid and distal LAD 70% stenosis. FFR 0.79 with 2.21 troponin. Preserved LV Fx. EF-55-60%, [id number] No Significant Gradient across aortic Valve. Successful PTCA with BIPIN of Mid And Distal LAD. Recommendations Cardiac Rehabilitation Referral Aggressive Medical TherapyCardiac Risk Reduction Program Weight Loss Reduction Program Plavix and Eliquis for one yaer ( PAF) then Baby asa and eliquis. CC; dr. johnston.
--- NOTE | 2019-01-22 19:05 | CARD ---
APPROVED REPORT Date of service: 01/22/2019 EKG Measurement Heart [id number] <Conclusion> Normal sinus rhythm Marked T wave abnormality, consider global ischemia Prolonged QT CCR Abnormal ECG
[2019-01-23 00:47] VITALS: RESP 19
[2019-01-23] MEDS: Pantoprazole 40 mg EC Tab PO SCH (05:22)
--- NOTE | 2019-01-23 08:07 | CP.PCM.PN ---
Subjective - Date & Time of Evaluation Date of Evaluation: 01/23/19 Time of Evaluation: 06:45 - Subjective Subjective: No distress, lying in bed, awake Reason for consultation and follow up: Cardiac evaluation of chest pain, Non STEMI,history of atrial fibrillation, post cardiac cath and stent Seen and examined by me and Dr. Garcia Objective - Vital Signs/Intake and Output Vital Signs (last 24 hours): Temp Pulse Resp BP Pulse Ox 97.9 F 81 19 156/68 H 95 01/23/19 06:00 01/23/19 06:00 01/23/19 06:00 01/23/19 06:00 01/23/19 06:00 Intake and Output: 01/23/19 01/23/19 06:59 18:59 Intake Total 0 Output Total 950 Balance -950 - Medications Medications: Current Medications Acetaminophen (Tylenol 325mg Tab) 650 mg PO Q6H PRN PRN Reason: Pain, Mild (1-3) Last Admin: 01/21/19 11:29 Dose: 650 mg Amiodarone HCl (Cordarone) 200 mg PO DAILY [facility] Last Admin: 01/22/19 17:29 Dose: 200 mg Apixaban (Eliquis) 2.5 mg PO BID [facility]; Protocol Aspirin (Ecotrin) 325 mg PO DAILY [facility] Last Admin: 01/22/19 13:50 Dose: Not Given Atorvastatin Calcium (Lipitor) 40 mg PO DIN [facility] Last Admin: 01/22/19 17:33 Dose: 40 mg Clopidogrel Bisulfate (Plavix) 75 mg PO DAILY [facility] Furosemide (Lasix) 20 mg IVP DAILY [facility] Last Admin: 01/22/19 17:29 Dose: 20 mg Hydralazine HCl (Apresoline) 10 mg PO QID PRN PRN Reason: FOR SBP >170 Hydralazine HCl (Apresoline) 50 mg PO TID [facility] Last Admin: 01/22/19 18:12 Dose: Not Given Lisinopril (Zestril) 40 mg PO DAILY [facility] Meclizine HCl (Antivert) 25 mg PO Q12 [facility] Last Admin: 01/22/19 22:09 Dose: 25 mg Metoprolol Tartrate (Lopressor) 12.5 mg PO BID [facility] Last Admin: 01/22/19 18:13 Dose: Not Given Nitroglycerin (Nitrostat Sl Tab) 0.4 mg SL Q5M PRN PRN Reason: chest pain Pantoprazole Sodium (Protonix Ec Tab) 40 mg PO 0600 [facility] Last Admin: 01/23/19 05:22 Dose: 40 mg Paroxetine HCl (Paxil) 20 mg PO 1800 [facility] Last Admin: 01/22/19 17:33 Dose: 20 mg - Labs Labs: 01/22/19 17:12 01/22/19 17:12 PT 15.0 SECONDS (9.4-12.5) H 01/21/19 04:15 INR 1.35 01/21/19 04:15 APTT 49.3 Seconds (26.9-38.3) H 01/22/19 06:00 - Constitutional Appears: Non-toxic, No Acute Distress - Head Exam Head Exam: NORMAL INSPECTION, NORMOCEPHALIC - Eye Exam Eye Exam: Normal appearance Pupil Exam: NORMAL ACCOMODATION - ENT Exam ENT Exam: Mucous Membranes Moist, Normal Exam - Neck Exam Neck Exam: Full ROM, Normal Inspection - Respiratory Exam Respiratory Exam: Decreased Breath Sounds, Clear to Ausculation Bilateral, NORMAL BREATHING PATTERN - Cardiovascular Exam Cardiovascular Exam: REGULAR RHYTHM, +S1, +S2 - GI/Abdominal Exam GI & Abdominal Exam: Soft, Normal Bowel Sounds - Extremities Exam Extremities Exam: Full ROM, Normal Capillary Refill - Neurological Exam Neurological Exam: Alert, Awake, Oriented x3 - Psychiatric Exam Psychiatric exam: Normal Affect, Normal Mood - Skin Skin Exam: Dry, Normal Color, Warm Assessment and Plan - Assessment and Plan (Free Text) Assessment: An 83 year old female obese who came in to the ER with episode of dizziness and fell down. Complaints of chest pain. Elevated troponin. History of chronic atrial fibrillation on Eliquis, recurrent UTI's, status post hysterectomy for uterine cancer, chronic hidalgo catheter after surgery, hypertension, hyperlipidemia, GERD, kidney disease, appendectomy, cholecystectomy. She had cardiac cath yesterday and showed Critical one vessel mid and distal LAD 70% stenosis, from 0.79 to 2.21 troponin. LVEF 55-60%, Successful BIPIN PTCA of Mid and distal LAD. Denies chest pain. Discontinue telemetry. Plan: Denies chest pain Successful PTCA with BIPIN of LAD Aggressive medical therapy Plavix and Eliquis for at least a year Cardiac status stable On Amiodarone 200 mg daily, Eliquis 2.5 mg BID, ASA 81 mg daily,Lipitor 40 mg daily, Plavix 75 mg daily, Lasix 20 mg daily, Hydralazine 50 mg TID , Lisinopril 40 mg daily Lopressor 12.5 mg BID Will discontinue telemetry May discharge from cardiac standpoint Follow up in office 1-2 weeks Plan and treatment discussed with Dr. Garcia
[2019-01-23 08:56] LABS: BASO # 0.02 K/mm3 (0.0-2.0); BASO % 0.2 % (0.0-3.0); EOS % 0.4 % (1.5-5.0); HEMOGLOBIN 9.9 g/dL (12.0-16.0); LYMPH # 1.3 (1.2-3.4); LYMPH % 15.2 % (22.0-35.0); MEAN CORPUSCULAR HEMOGLOBIN 27.2 pg (25.0-35.0); MEAN CORPUSCULAR HGB CONC 30.6 g/dl (31.0-37.0); MEAN PLATELET VOLUME 9.6 fl (7.0-11.0); MONO # 0.5 (0.1-0.6); MONO % 6.4 % (1.0-6.0); RBC 3.64 10^6/uL (3.5-6.1); RED CELL DISTRIBUTION WIDTH 19.5 % (11.5-14.5); WHITE BLOOD COUNT 8.2 10^3/uL (4.5-11.0)
[2019-01-23 09:12] LABS: ALB/GLOB RATIO 1.2 (1.1-1.8); ALBUMIN 3.3 g/dL (3.0-4.8); CALCIUM 8.7 mg/dL (8.4-10.5)
[2019-01-23] MEDS: Aspirin 325 mg EC Tablets PO SCH (10:15)
--- NOTE | 2019-01-23 13:28 | CP.PCM.DIS ---
<JeannineDylon arango - Last Filed: 01/23/19 20:46> Provider - Provider Date of Admission: 01/20/19 20:24 Attending physician: Jimmy White MD Primary care physician: Karly Pacheco MD Consults: 01/20/19 22:03 Physician Consult Routine Comment: Consulting Provider: Jimmy Garcia Consulting Physician: Jimmy Garcia Reason for Consult: Possible new CHF, uncontrolled BP 01/21/19 08:37 Consult [Physician Consult] Routine Comment: Dizzyness Consulting Provider: Harvinder Villanueva Consulting Physician: Harvinder Villanueva Reason for Consult: Dizzjoseph 01/23/19 10:23 TCU [Evaluation for TRCU] Routine Comment: Physician Instructions: Reason For Exam: PT Time Spent in preparation of Discharge (in minutes): 45 Diagnosis - Discharge Diagnosis (1) NSTEMI (non-ST elevated myocardial infarction) Status: Resolved (2) CHF (congestive heart failure) Status: Resolved (3) CAREY (acute kidney injury) Status: Acute (4) Dehydration Status: Resolved (5) UTI (urinary tract infection) Status: Chronic (6) Urinary retention Status: Chronic (7) Anemia of chronic disease Status: Chronic (8) Hypertension Status: Chronic Hospital Course - Lab Results Lab Results: Micro Results 01/20/19 19:50 Urine,Clean Catch Urine Culture - Final Proteus Mirabilis Most Recent Lab Values WBC 8.2 10^3/uL (4.5-11.0) 01/23/19 08:30 RBC 3.64 10^6/uL (3.5-6.1) 01/23/19 08:30 Hgb 9.9 g/dL (12.0-16.0) L 01/23/19 08:30 Hct 32.4 % (36.0-48.0) L 01/23/19 08:30 MCV 89.0 fl (80.0-105.0) 01/23/19 08:30 MCH 27.2 pg (25.0-35.0) 01/23/19 08:30 MCHC 30.6 g/dl (31.0-37.0) L 01/23/19 08:30 RDW 19.5 % (11.5-14.5) H 01/23/19 08:30 Plt Count 279 10^3/uL (120.0-450.0) 01/23/19 08:30 MPV 9.6 fl (7.0-11.0) 01/23/19 08:30 Neut % (Auto) 77.8 % (50.0-68.0) H 01/23/19 08:30 Lymph % (Auto) 15.2 % (22.0-35.0) L 01/23/19 08:30 [place] % (Auto) 6.4 % (1.0-6.0) H 01/23/19 08:30 Eos % (Auto) 0.4 % (1.5-5.0) L 01/23/19 08:30 Baso % (Auto) 0.2 % (0.0-3.0) 01/23/19 08:30 Lymph # (Auto) 1.3 (1.2-3.4) 01/23/19 08:30 [place] # (Auto) 0.5 (0.1-0.6) 01/23/19 08:30 Eos # (Auto) 0.0 (0.0-0.7) 01/23/19 08:30 Baso # (Auto) 0.02 K/mm3 (0.0-2.0) 01/23/19 08:30 Absolute Neuts (auto) 6.39 (1.4-6.5) 01/23/19 08:30 PT 15.0 SECONDS (9.4-12.5) H 01/21/19 04:15 INR 1.35 01/21/19 04:15 APTT 49.3 Seconds (26.9-38.3) H 01/22/19 06:00 Sodium 138 mmol/L (132-148) 01/23/19 08:30 Potassium 4.6 mmol/L (3.6-5.0) 01/23/19 08:30 Chloride 106 mmol/L (98-107) 01/23/19 08:30 Carbon Dioxide 25 mmol/L (21-33) 01/23/19 08:30 Anion Gap 11 (10-20) 01/23/19 08:30 BUN 24 mg/dL (7-21) H 01/23/19 08:30 Creatinine 1.3 mg/dl (0.7-1.2) H 01/23/19 08:30 Est GFR ( Amer) 48 01/23/19 08:30 Est GFR (Non-Af Amer) 39 01/23/19 08:30 Random Glucose 201 mg/dL (70-110) H 01/23/19 08:30 Hemoglobin A1c 8.2 % (4.2-6.5) H 01/22/19 06:00 Calcium 8.7 mg/dL (8.4-10.5) 01/23/19 08:30 Phosphorus 3.7 mg/dL (2.5-4.5) 01/23/19 08:30 Magnesium 1.8 mg/dL (1.7-2.2) 01/23/19 08:30 Total Bilirubin 0.5 mg/dL (0.2-1.3) 01/23/19 08:30 AST 23 U/L (14-36) 01/23/19 08:30 ALT 17 U/L (7-56) 01/23/19 08:30 Alkaline Phosphatase 103 U/L (38-126) 01/23/19 08:30 Troponin I 1.81 ng/mL H* 01/21/19 11:30 NT-Pro-B Natriuret Pep 3450 pg/mL (0-450) H 01/20/19 18:40 Total Protein 5.9 g/dL (5.8-8.3) 01/23/19 08:30 Albumin 3.3 g/dL (3.0-4.8) 01/23/19 08:30 Globulin 2.6 gm/dL 01/23/19 08:30 Albumin/Globulin Ratio 1.2 (1.1-1.8) 01/23/19 08:30 Triglycerides 207 mg/dL (35-160) H 01/22/19 06:00 Cholesterol 141 mg/dL (130-200) 01/22/19 06:00 LDL Cholesterol Direct 68 mg/dL (0-129) 01/22/19 06:00 HDL Cholesterol 45 mg/dL (29-60) 01/22/19 06:00 Free T4 2.89 ng/dL (0.78-2.19) H 01/22/19 08:02 Total T3 0.79 ng/mL (0.97-1.69) L 01/22/19 08:02 TSH 3rd Generation 0.35 mIU/mL (0.46-4.68) L 01/22/19 06:00 Urine Color Yellow (YELLOW) 01/21/19 20:00 Urine Appearance Sl cloudy (CLEAR) 01/21/19 20:00 Urine pH 5.5 (4.7-8.0) 01/21/19 20:00 Ur Specific Humble 1.025 (1.005-1.035) 01/21/19 20:00 Urine Protein 100 mg/dL (<30 mg/dL) H 01/21/19 20:00 Urine Glucose (UA) Negative mg/dL (NEGATIVE) 01/21/19 20:00 Urine Ketones Negative mg/dL (NEGATIVE) 01/21/19 20:00 Urine Blood Negative (NEGATIVE) 01/21/19 20:00 Urine Nitrate Negative (NEGATIVE) 01/21/19 20:00 Urine Bilirubin Negative (NEGATIVE) 01/21/19 20:00 Urine Urobilinogen 0.2 E.U./dL (<1 E.U./dL) 01/21/19 20:00 Ur Leukocyte Esterase Small Joaquin/uL (NEGATIVE) H 01/21/19 20:00 Urine RBC None /hpf (0-2) 01/21/19 20:00 Urine WBC 25 - 30 /hpf (0-6) H 01/21/19 20:00 Ur Epithelial Cells 6 - 8 /hpf (0-5) H 01/21/19 20:00 Urine Bacteria Mod /hpf (NONE) 01/21/19 20:00 - Hospital Course Hospital Course: Patient is an 83-year-old F with PMH of atrial fibrillation and chronic hidalgo catheter who presents to [facility] ED for dizziness and 2 episodes of mechanical falls. Patient described the dizziness as feeling "lightheaded" and as though she is going to pass out. Patient sustained a fall 1 day prior during which she bruised her forehead and minor superficial abrasion to nose. Patient says she was using her 4 wheel walker at the time, and that she somehow tripped which caused the fall. Over the course of her hospital stay patient complained of left sided chest pain also. Troponins were found to be 0.08-->2.21-->1.81. EKG showed T-waves inversions in leads II, III, and aVF, as well as lateral leads V2-V6. Cardiology consulted, Dr. Garcia. ASA loading dose, metoprolol, nitro sublingual, heparin drip (no bolus was administered, as the patient is on eliquis) were ordered for patient's NSTEMI. Patient had cardiac cath on 01/22 that showed 70% LAD stenosis and 2 BIPIN were placed in the mid and distal LAD. Patient's hypertension was managed by Hydralazine 50mg PO TID, Zestril 40mg PO daily, Lopressor 12.5mg PO BID. Patient also had CHF exacerbation with BNP of 3450. Patient was treated with Lasix 20mg IVP, Elevate head of bed 30 degrees, Strict I&O, and Daily weight. Patient's paroxysmal atrial fibrillation was treated with Amiodarone 200mg PO QD, Lopressor 12.5mg PO BID, and Eliquis 2.5 mg PO BID. Physical therapy evaluated the patient and recommended TCU. Patient agreed and patient was medically stable to be trasnferred to TCU. Discharge Exam - Additional Findings Additional findings: - Constitutional Appears: No Acute Distress - Head Exam Head Exam: NORMAL INSPECTION - Eye Exam Eye Exam: Normal appearance Pupil Exam: NORMAL ACCOMODATION - ENT Exam ENT Exam: Mucous Membranes Moist, Normal Exam - Respiratory Exam Respiratory Exam: Clear to Ausculation Bilateral. absent: Rales, Rhonchi, Wheezes - Cardiovascular Exam Cardiovascular Exam: RRR, +S1, +S2. absent: Gallop, Rubs, Murmur - GI/Abdominal Exam GI & Abdominal Exam: Soft. absent: Distended, Guarding, Tenderness, Rebound - Extremities Exam Extremities Exam: Normal Inspection - Back Exam Back Exam: NORMAL INSPECTION - Neurological Exam Neurological Exam: Alert, Awake, Oriented x3 - Psychiatric Exam Psychiatric exam: Normal Affect, Normal Mood - Skin Skin Exam: Normal Color, Warm Discharge Plan - Follow Up Plan Condition: STABLE Disposition: REHAB FACILITY/REHAB UNIT Instructions: Coronary Angioplasty, Heart Healthy Diet, How to Care for Your Hidalgo Catheter, Female, Hidalgo Catheter, Female, Coronary Heart Disease in Women, Heart Failure (DC) Additional Instructions: Patient stable to be discharged to TCU - discharge instructions: please call for assistance to reduce the chance/risk of falls. Hidalgo catheter to remain in place; draining urine. Please follow the attached discharge s/p cardiac catheterization & Interventional Procedure Discharge Instruction. If condition occurs again, call the nurse/doctor while on TCU. Heart Healthy Diet Patient's daughters state patient is up to date with regards to the flu and the pneumococcal vaccines. Referrals: Karly Barron MD [Primary Care Provider] - <Jimmy White - Last Filed: 01/24/19 10:08> Provider - Provider Date of Admission: 01/20/19 20:24 Attending physician: Jimmy White MD Primary care physician: Karly Pacheco MD Consults: 01/20/19 22:03 Physician Consult Routine Comment: Consulting Provider: Jimmy Garcia Consulting Physician: Jimmy Garcia Reason for Consult: Possible new CHF, uncontrolled BP 01/21/19 08:37 Consult [Physician Consult] Routine Comment: Dizzyness Consulting Provider: Harvinder Villanueva Consulting Physician: Harvinder Villanueva Reason for Consult: Dizzyness 01/23/19 10:23 TCU [Evaluation for TRCU] Routine Comment: Physician Instructions: Reason For Exam: PT Hospital Course - Lab Results Lab Results: Micro Results 01/20/19 19:50 Urine,Clean Catch Urine Culture - Final Proteus Mirabilis Most Recent Lab Values WBC 8.2 10^3/uL (4.5-11.0) 01/23/19 08:30 RBC 3.64 10^6/uL (3.5-6.1) 01/23/19 08:30 Hgb 9.9 g/dL (12.0-16.0) L 01/23/19 08:30 Hct 32.4 % (36.0-48.0) L 01/23/19 08:30 MCV 89.0 fl (80.0-105.0) 01/23/19 08:30 MCH 27.2 pg (25.0-35.0) 01/23/19 08:30 MCHC 30.6 g/dl (31.0-37.0) L 01/23/19 08:30 RDW 19.5 % (11.5-14.5) H 01/23/19 08:30 Plt Count 279 10^3/uL (120.0-450.0) 01/23/19 08:30 MPV 9.6 fl (7.0-11.0) 01/23/19 08:30 Neut % (Auto) 77.8 % (50.0-68.0) H 01/23/19 08:30 Lymph % (Auto) 15.2 % (22.0-35.0) L 01/23/19 08:30 [place] % (Auto) 6.4 % (1.0-6.0) H 01/23/19 08:30 Eos % (Auto) 0.4 % (1.5-5.0) L 01/23/19 08:30 Baso % (Auto) 0.2 % (0.0-3.0) 01/23/19 08:30 Lymph # (Auto) 1.3 (1.2-3.4) 01/23/19 08:30 [place] # (Auto) 0.5 (0.1-0.6) 01/23/19 08:30 Eos # (Auto) 0.0 (0.0-0.7) 01/23/19 08:30 Baso # (Auto) 0.02 K/mm3 (0.0-2.0) 01/23/19 08:30 Absolute Neuts (auto) 6.39 (1.4-6.5) 01/23/19 08:30 PT 15.0 SECONDS (9.4-12.5) H 01/21/19 04:15 INR 1.35 01/21/19 04:15 APTT 49.3 Seconds (26.9-38.3) H 01/22/19 06:00 Sodium 138 mmol/L (132-148) 01/23/19 08:30 Potassium 4.6 mmol/L (3.6-5.0) 01/23/19 08:30 Chloride 106 mmol/L (98-107) 01/23/19 08:30 Carbon Dioxide 25 mmol/L (21-33) 01/23/19 08:30 Anion Gap 11 (10-20) 01/23/19 08:30 BUN 24 mg/dL (7-21) H 01/23/19 08:30 Creatinine 1.3 mg/dl (0.7-1.2) H 01/23/19 08:30 Est GFR ( Amer) 48 01/23/19 08:30 Est GFR (Non-Af Amer) 39 01/23/19 08:30 POC Glucose (mg/dL) 152 mg/dL (65-110) H 01/24/19 05:57 Random Glucose 201 mg/dL (70-110) H 01/23/19 08:30 Hemoglobin A1c 8.2 % (4.2-6.5) H 01/22/19 06:00 Calcium 8.7 mg/dL (8.4-10.5) 01/23/19 08:30 Phosphorus 3.7 mg/dL (2.5-4.5) 01/23/19 08:30 Magnesium 1.8 mg/dL (1.7-2.2) 01/23/19 08:30 Total Bilirubin 0.5 mg/dL (0.2-1.3) 01/23/19 08:30 AST 23 U/L (14-36) 01/23/19 08:30 ALT 17 U/L (7-56) 01/23/19 08:30 Alkaline Phosphatase 103 U/L (38-126) 01/23/19 08:30 Troponin I 1.81 ng/mL H* 01/21/19 11:30 NT-Pro-B Natriuret Pep 3450 pg/mL (0-450) H 01/20/19 18:40 Total Protein 5.9 g/dL (5.8-8.3) 01/23/19 08:30 Albumin 3.3 g/dL (3.0-4.8) 01/23/19 08:30 Globulin 2.6 gm/dL 01/23/19 08:30 Albumin/Globulin Ratio 1.2 (1.1-1.8) 01/23/19 08:30 Triglycerides 207 mg/dL (35-160) H 01/22/19 06:00 Cholesterol 141 mg/dL (130-200) 01/22/19 06:00 LDL Cholesterol Direct 68 mg/dL (0-129) 01/22/19 06:00 HDL Cholesterol 45 mg/dL (29-60) 01/22/19 06:00 Free T4 2.89 ng/dL (0.78-2.19) H 01/22/19 08:02 Total T3 0.79 ng/mL (0.97-1.69) L 01/22/19 08:02 TSH 3rd Generation 0.35 mIU/mL (0.46-4.68) L 01/22/19 06:00 Urine Color Yellow (YELLOW) 01/21/19 20:00 Urine Appearance Sl cloudy (CLEAR) 01/21/19 20:00 Urine pH 5.5 (4.7-8.0) 01/21/19 20:00 Ur Specific Humble 1.025 (1.005-1.035) 01/21/19 20:00 Urine Protein 100 mg/dL (<30 mg/dL) H 01/21/19 20:00 Urine Glucose (UA) Negative mg/dL (NEGATIVE) 01/21/19 20:00 Urine Ketones Negative mg/dL (NEGATIVE) 01/21/19 20:00 Urine Blood Negative (NEGATIVE) 01/21/19 20:00 Urine Nitrate Negative (NEGATIVE) 01/21/19 20:00 Urine Bilirubin Negative (NEGATIVE) 01/21/19 20:00 Urine Urobilinogen 0.2 E.U./dL (<1 E.U./dL) 01/21/19 20:00 Ur Leukocyte Esterase Small Joaquin/uL (NEGATIVE) H 01/21/19 20:00 Urine RBC None /hpf (0-2) 01/21/19 20:00 Urine WBC 25 - 30 /hpf (0-6) H 01/21/19 20:00 Ur Epithelial Cells 6 - 8 /hpf (0-5) H 01/21/19 20:00 Urine Bacteria Mod /hpf (NONE) 01/21/19 20:00 Attending/Attestation - Attestation I have personally seen and examined this patient.: Yes I have fully participated in the care of the patient.: Yes I have reviewed all pertinent clinical information, including history, physical exam and plan: Yes Notes (Text): 01/24/19 10:00 Medical record note made by the resident after discussion with my direction and input after the patient was personally seen and examined by me. I have reviewed the chart and agree that the record accurately reflects by personal performance of the history, physical exam, data review, and medical decision-making, in the course for the patient. I have also personally directed the plan of care. 83 year old female with PMH of HTN,Proxysmal AF on oral anticagulation with Apixiban, Urinary incontinence on chronic indwelling Hidalgo catheter was admitted with H/O of dizziness and fell at home. Patient had episode of chest pain in ER and had elevated troponin suggestive of NSEMI.Patient was also found be in CHF at the time of admission and was treated with IV lasix. Patient had cardiac cath 01/22/19 and showed Critical one vessel mid and distal LAD 70% stenosis, from 0.79 to 2.21 troponin. LVEF 55-60%, Successful BIPIN PTCA of Mid and distal LAD.Currently on ASA/Plavix/Metoprolol/statin /lisinopril. AF currently in NSR , on anticoagulation with Apixiban. Patient CHF has improved.She is on room . Complicated UTI, Urine cultures grew Proteus Mirabililis on oral antibiotics. Patient was evaluated by PT and TCU has been recommended.She will be discharged to TCU for rehabilitation. Management plan was discussed in detail with patient and family. Education was provided. 01/24/19 10:05 s
[2019-01-23 17:28] VITALS: BP 153/80; PULSE 77; TEMP 98.4; O2SAT 94
--- NOTE | 2019-01-24 03:09 | CARD ---
APPROVED REPORT Date of service: 01/23/2019 EKG Measurement Heart [id number] FL 170P [id number] <Conclusion> Low atrial or junctional rhythm NDSTT abnormalities CCR Prolonged QT Abnormal ECG
--- NOTE | 2019-01-27 09:36 | PQF ---
PROVIDER RESPONSE TEXT: Patient has Chronic diastolic CHF, EF is 58% on cardiac cath, Was admitted with acute on chronic diastolic CHF improved with IV lasix. REVIEWER QUERY TEXT: CHF Acuity and Type Physician?s Documentation Request This Form is Not a Permanent Document in the Medical Record Pt Name: TRAN DE SOUZA MR #: [id number] Payor: MEDICARE PART A Unit/Bed: [id number] Adm Date: 01/20/2019 8:24:00 PM Reviewer: Matilda Vera Ext. Query Date: 01/26/2019 11:51:34 AM CHF Acuity and Type [id number] By submitting this query, we are merely seeking further clarification of documentation to accurately reflect all conditions that you are monitoring, evaluating, treating or that extend the hospitalizati on or utilize additional resources of care. Please utilize your independent clinical judgment when ad dressing the question(s) below. Dear Doctor Jimmy White, The patient?s Clinical Indicators include: 01/22PN=CHFpEF documentation ---please specify acuity Congestive Heart Failure is documented in the Medical Record. Please document the type and acuity (in cludes probable or suspected) Such as: Type: -- Systolic -- Diastolic -- Combined -- Other, please specify Acuity: -- Acute -- Chronic -- Acute on chronic -- Other, please specify Also please document the underlying cause of the CHF (includes probable or suspected) PLEASE DOCUMENT ANY ADDITIONAL DIAGNOSES AND/OR SPECIFICITY IN THE PROGRESS NOTES AND/OR DISCHARGE HERBERT MMARY. Clinically unable to determine/unknown Disagree with the above request Need to discuss Query created by: Matilda Vera on 01/26/2019 11:51 AM Electronically signed by: Jimmy White MD 01/27/2019 9:33 AM
== END 2019-01-23 18:57 | DRG 246 ==
LOC: ED 15:36 → ERH 20:24 → 2RNO 21:41 → 2RSO 01-22 11:41
PROVIDERS: ADMIT Internal Medicine; ATTEND Internal Medicine
PROC: 027034Z Dilation of Coronary Artery, One Artery with Drug-eluting Intraluminal Device, Percutaneous Approach (ICD-10-PCS; principal; 2019-01-22)
PROC: 4A033BC Measurement of Arterial Pressure, Coronary, Percutaneous Approach (ICD-10-PCS; 2019-01-22)
PROC: 4A023N7 Measurement of Cardiac Sampling and Pressure, Left Heart, Percutaneous Approach (ICD-10-PCS; 2019-01-22)
PROC: B2151ZZ Fluoroscopy of Left Heart using Low Osmolar Contrast (ICD-10-PCS; 2019-01-22)
PROC: B2111ZZ Fluoroscopy of Multiple Coronary Arteries using Low Osmolar Contrast (ICD-10-PCS; 2019-01-22)
PROC: 3E033PZ Introduction of Platelet Inhibitor into Peripheral Vein, Percutaneous Approach (ICD-10-PCS; 2019-01-22)
DX: I21.4 Non-ST elevation (NSTEMI) myocardial infarction (principal); I50.33 Acute on chronic diastolic (congestive) heart failure; I13.0 Hypertensive heart and chronic kidney disease with heart failure and stage 1 through stage 4 chronic kidney disease, or unspecified chronic kidney disease; N17.9 Acute kidney failure, unspecified; N39.0 Urinary tract infection, site not specified; I25.110 Atherosclerotic heart disease of native coronary artery with unstable angina pectoris; I48.0 Paroxysmal atrial fibrillation; I48.2 Chronic atrial fibrillation; F32.9 Major depressive disorder, single episode, unspecified; K21.9 Gastro-esophageal reflux disease without esophagitis; E78.5 Hyperlipidemia, unspecified; E86.0 Dehydration; S00.83XA Contusion of other part of head, initial encounter; S00.31XA Abrasion of nose, initial encounter; R42 Dizziness and giddiness; B96.4 Proteus (mirabilis) (morganii) as the cause of diseases classified elsewhere; D63.8 Anemia in other chronic diseases classified elsewhere; N18.9 Chronic kidney disease, unspecified; E66.9 Obesity, unspecified; I08.3 Combined rheumatic disorders of mitral, aortic and tricuspid valves; N31.9 Neuromuscular dysfunction of bladder, unspecified; I27.20 Pulmonary hypertension, unspecified; W18.2XXA Fall in (into) shower or empty bathtub, initial encounter; Y92.091 Bathroom in other non-institutional residence as the place of occurrence of the external cause; Z79.82 Long term (current) use of aspirin; Z79.01 Long term (current) use of anticoagulants; Y93.E1 Activity, personal bathing and showering; Z85.41 Personal history of malignant neoplasm of cervix uteri; Z68.30 Body mass index [BMI] 30.0-30.9, adult

== ENCOUNTER 2019-01-23 19:01 | Inpatient (IN) | payer OTHER ==
[2019-01-23 23:57] VITALS: BMI 31.6
[2019-01-24] MEDS: Pantoprazole 40 mg EC Tab PO SCH (05:34)
--- NOTE | 2019-01-24 07:00 | CP.PCM.HP ---
<JeannineKisha arangoi - Last Filed: 01/24/19 09:49> History of Present Illness - History of Present Illness History of Present Illness: PGY-1 Medicine H&P for Dr. White Patient is an 83-year-old F with PMH of atrial fibrillation and chronic hidalgo catheter who presents to [facility] for dizziness and 2 episodes of mechanical falls. Patient described the dizziness as feeling "lightheaded" and as though she is going to pass out. Patient sustained a fall 1 day prior during which she bruised her forehead and minor superficial abrasion to nose. Patient says she was using her 4 wheel walker at the time, and that she somehow tripped which caused the fall. Over the course of her hospital stay patient complained of left sided chest pain also. Troponins were found to be 0.08-->2.21-->1.81. EKG showed T-waves inversions in leads II, III, and aVF, as well as lateral leads V2-V6. Cardiology consulted, Dr. Garcia. ASA loading dose, metoprolol, nitro sublingual, heparin drip (no bolus was administered, as the patient is on eliquis) were ordered for patient's NSTEMI. Patient had cardiac cath on 01/22 that showed 70% LAD stenosis and 2 BIPIN were placed in the mid and distal LAD. Patient's hypertension was managed by Hydralazine 50mg PO TID, Zestril 40mg PO daily, Lopressor 12.5mg PO BID. Patient also had CHF exacerbation with BNP of 3450. Patient was treated with Lasix 20mg IVP, Elevate head of bed 30 degrees, Strict I&O, and Daily weight. Patient's paroxysmal atrial fibrillation was treated with Amiodarone 200mg PO QD, Lopressor 12.5mg PO BID, and Eliquis 2.5 mg PO BID. Physical therapy evaluated the patient and recommended TCU. Patient agreed and patient was medically stable to be transferred to TCU. A full 12 point ROS was conducted and unremarkable except as stated above. PMD: Dr. Miranda Pharm: [facility] ([address] in [place] PMHx: atrial fibrillation on eliquis, HLD, HTN, obesity, uterine cancer s/p hysterectomy (14 years ago), GERD, depression, and kidney disease PSHx: hysterectomy (14 years ago), gallbladder removal, appendectomy Meds: see MAR Allergies: NKDA SocialHx: lives alone at home. Denies smoking, drinking, drug use. FamHx: mother had CAD. Father had prostate cancer. Present on Admission - Present on Admission Any Indicators Present on Admission: No History of DVT/PE: No History of Uncontrolled Diabetes: No Urinary Catheter: Yes Decubitus Ulcer Present: No Past Patient History - Infectious Disease Hx of Infectious Diseases: None - Past Medical History & Family History Past Medical History?: Yes - Past Social History Smoking Status: Never Smoked - CARDIAC Hx Cardiac Disorders: Yes (A-fib, on eliquis.) Hx Hypertension: Yes - PULMONARY Hx Respiratory Disorders: No Hx Asthma: No Hx Bronchitis: No Hx Chronic Obstructive Pulmonary Disease (COPD): No Hx Emphysema: No Hx Pneumonia: No Hx Respiratory Aspiration: No Hx Respiratory Tract Infection: No Hx Sleep Apnea: No Hx Tuberculosis: No - NEUROLOGICAL Hx Neurological Disorder: No Hx Alzheimer's Disease: No HX Cerebrovascular Accident: No Hx Dementia: No Hx Dizziness: No Hx Meningitis: No Hx Migraine: No Hx Parkinson's Disease: No Hx Seizures: No Hx Transient Ischemic Attacks (TIA): No - HEENT Hx HEENT Problems: Yes Hx Blind: No Hx Cataracts: Yes Hx Deafness: No Hx Difficulty Chewing: No Hx Epistaxis: No Hx Glaucoma: No Hx Macular Degeneration: No - RENAL Hx Chronic Kidney Disease: No Hx Dialysis: No Hx Kidney Stones: No Hx Neurogenic Bladder: Yes (retention cath at home) Hx Pyelonephritis: No Hx Renal (Kidney) Cancer: No Hx Renal Failure: No Other/Comment: Hidalgo cath changed in Dr Kessler office on 12/24/2018 DO NOT REMOVE as per Dr Cuba - ENDOCRINE/METABOLIC Hx Endocrine Disorders: No Hx Adrenal Cancer: No Hx Diabetes Insipidus: No Hx Diabetes Mellitus Type 1: No Hx Diabetes Mellitus Type 2: No Hx Hyperthyroidism: No Hx Hypothyroidism: No Hx Systemic Lupus Erythematosus: No - HEMATOLOGICAL/ONCOLOGICAL Hx Blood Disorders: Yes Hx AIDS: No Hx Anemia: Yes Hx Cancer: No Hx Chemotherapy: No Hx Cirrhosis: No Hx Hemophilia: No Hx Hepatitis A: No Hx Hepatitis B: No Hx Hepatitis C: No Hx Metastesis: No Hx Shingles: No Hx Sickle Cell Disease: No Hx Unexplained Bleeding: No Other/Comment: Hyperuricemia - INTEGUMENTARY Hx Dermatological Problems: No Hx Basil Cell: No Hx Eczema: No Hx Melanoma: No Hx Psoriasis: No Hx Squamous Cell: No - MUSCULOSKELETAL/RHEUMATOLOGICAL Hx Falls: Yes - GASTROINTESTINAL Hx Gastrointestinal Disorders: Yes (APPENDECTOMY) - GENITOURINARY/GYNECOLOGICAL Hx Genitourinary Disorders: Yes (NEUROGENIC BLADDER, UTI) Hx Reproductive Disorders: No - PSYCHIATRIC Hx Psychophysiologic Disorder: No Hx Anxiety: No Hx Bipolar Disorder: No Hx Depression: Yes Hx Emotional Abuse: No Hx Hallucinations: No Hx Panic Symptoms: No Hx Post Traumatic Stress Disorder: No Hx Psychosis: No Hx Physical Abuse: No Hx Schizophrenia: No Hx Sexual Abuse: No Hx Substance Use: No - SURGICAL HISTORY Hx Amputation: No Hx Appendectomy: Yes Hx Cholecystectomy: No Hx Gastric Bypass Surgery: No Hx Hysterectomy: No Hx Joint Replacement: Yes Hx Kidney Transplant: No Hx Liver Transplant: No Hx Mastectomy: No Hx Musculoskeletal Surgery: No Hx Open Heart Surgery: No Hx Orthopedic Surgery: No Hx Splenectomy: No Hx Valve Replacement: No - ANESTHESIA Hx Anesthesia: Yes Hx Anesthesia Reactions: No Hx Malignant Hyperthermia: No Meds Allergies/Adverse Reactions: Allergies Allergy/AdvReac Type Severity Reaction Status Date / Time No Known Allergies Allergy Verified 01/20/19 15:51 Physical Exam - Additional Findings Additional findings: - Constitutional Appears: No Acute Distress - Head Exam Head Exam: NORMAL INSPECTION - Eye Exam Eye Exam: Normal appearance Pupil Exam: NORMAL ACCOMODATION - ENT Exam ENT Exam: Mucous Membranes Moist, Normal Exam - Respiratory Exam Respiratory Exam: Clear to Ausculation Bilateral. absent: Rales, Rhonchi, Wheezes - Cardiovascular Exam Cardiovascular Exam: RRR, +S1, +S2. absent: Gallop, Rubs, Murmur - GI/Abdominal Exam GI & Abdominal Exam: Soft. absent: Distended, Guarding, Tenderness, Rebound - Extremities Exam Extremities Exam: Normal Inspection - Back Exam Back Exam: NORMAL INSPECTION - Neurological Exam Neurological Exam: Alert, Awake, Oriented x3 - Psychiatric Exam Psychiatric exam: Normal Affect, Normal Mood - Skin Skin Exam: Normal Color, Warm Assessment & Plan - Assessment and Plan (Free Text) Assessment: Patient is an 83-year-old F with PMH of atrial fibrillation and chronic hidalgo catheter who presented with dizziness and 2 episodes of mechanical falls and subsequently was found to have NSTEMI. Patient went for cardiac catherization today with BIPIN placement. Plan: Dizziness and Multiple Falls - Head CT: negative for acute intracranial abnormalities - MUGA scan from previous admission showed LVEF of 64% - Meclizine 25mg PO Q12 - Neurology consulted, Dr. Villanueva - Fall precautions - PT/OT eval and treat UTI - Continue Ciprofloxacin for 5 days - Patient has long-term hidalgo catheter for chronic urinary retention - Follows up with her urologist monthly to replace catheter NSTEMI, resolved - s/p cardiac catherization: 70% LAD stenosis, 2 BIPIN in the mid and distal LAD - Continue ASA, Plavix, Eliquis, Lisinopril, Metoprolol, Lipitor - Cardiology consulted, Dr. Garcia HTN - Cont Hydralazine 50mg PO TID - Cont Zestril 40mg PO daily - Cont Lopressor 12.5mg PO BID CHFpEF - Clinically improved/stable, exacerbation resolved - BNP elevated 3450 (previously 1979 last month) - CXR: consistent with pulmonary edema bilaterally - Elevate head of bed 30 degrees - Strict I&O - Daily weight Paroxysmal Atrial Fibrillation - Cont Amiodarone 200mg PO QD - Cont Lopressor 12.5mg PO BID - Eliquis 2.5 mg PO BID Depression - Cont paxil 20mg PO daily GERD - Cont Protonix 40 mg PO daily HLD - Lipitor 40mg PO HS DVT ppx: Eliquis GI ppx: protonix 40mg po daily Patient seen and case discussed with attending, Dr. White. Dylon Larry, PGY-1 <Jimmy White - Last Filed: 01/24/19 10:14> Attending/Attestation - Attestation I have personally seen and examined this patient.: Yes I have fully participated in the care of the patient.: Yes I have reviewed all pertinent clinical information: Yes Notes (Text): 01/24/19 10:11 Medical record note made by the resident after discussion with my direction and input after the patient was personally seen and examined by me. I have reviewed the chart and agree that the record accurately reflects by personal performance of the history, physical exam, data review, and medical decision-making, in the course for the patient. I have also personally directed the plan of care. 83 year old female with PMH of HTN,Proxysmal AF on oral anticagulation with Apixiban, Urinary incontinence on chronic indwelling Hidalgo catheter ,hyperlipidemia was initially admitted to inpatient [facility] admitted with H/O of dizziness and fell at home. Patient had episode of chest pain during hospitlization and was found to have elevated troponin suggestive of NSEMI.Patient was also found be in CHF at the time of admission and was treated with IV lasix. Patient had cardiac cath 01/22/19 and showed Critical one vessel mid and distal LAD 70% stenosis, from 0.79 to 2.21 troponin. LVEF 55-60%, Successful BIPIN PTCA of Mid and distal LAD.Currently on ASA/Plavix/Metoprolol/statin /lisinopril. AF currently in NSR , on anticoagulation with Apixiban. Patient CHF has improved.She is on room .Leg swelling has improved. Complicated UTI, Urine cultures grew Proteus Mirabililis on oral antibiotics.Patient is afebrile. Patient is currently in TCU for rehabilitation. Management plan was discussed in detail with patient and family. Education was provided. 01/24/19 10:13
--- NOTE | 2019-01-24 19:11 | CON ---
DATE: 01/24/2019 CONSULT SERVICE: Cardiology. REASON FOR CONSULTATION AND FOLLOWUP: Continuity of care in Transitional Care Unit, status post PTCA of LAD with two drug-eluting stents, benign positional vertigo, and paroxysmal atrial fibrillation. BRIEF CLINICAL HISTORY: This is an 83-year-old female with a past medical history significant for paroxysmal atrial fibrillation on Eliquis and history of chronic indwelling Workman catheter, presented to the emergency room with two episodes of mechanical falls and dizziness secondary to benign positional vertigo. Troponin keeps on increasing. The patient had an episode of chest pain. Also in the hospital, troponin came to 2.21. The patient subsequently underwent cardiac catheterization and FFR. The lesion was found to be 70%, borderline FFR was then found to be 0.79. In view of borderline FFR, but with the chest pain and troponin positive 2.21, the patient underwent two drug-eluting stents in the LAD. Now the patient is transferred to TCU for continuity of care. Denies any chest pain, shortness of breath, or any palpitation. Both daughters are at the bedside. The patient feels okay. PAST MEDICAL HISTORY: Significant for recent history of [id number] myocardial infarction, history of coronary artery disease, status post PTCA of LAD on 01/22/2019 with two drug-eluting stents as well as FFR was done, dated 01/22/2019. PREVIOUS CARDIAC WORKUP: Status post cardiac catheterization on 01/22/2019, LAD found to be with 70% stenosis, FFR of 0.79, and troponin positive, and unstable angina. The patient underwent two drug-eluting stents. History of PIEDAD, failed cardioversion. Last echo on 09/17/2018, that revealed normal LV function, ejection fraction normal limit, moderate aortic sclerosis, moderate aortic regurgitation, mild mitral regurgitation, moderate tricuspid regurgitation, moderate pulmonary hypertension, read by Dr. Roberts, RV systolic pressure reported 50 mmHg, and calculated ejection fraction 58%. PAST SURGICAL HISTORY: Significant for cardiac catheterization, most recently on 01/22/2019. Prior to that the patient had a cardiac catheterization on 12/28/2016. Also past history significant for cervical cancer, history of hysterectomy status post radiation, history of appendectomy and history of cholecystectomy. After hysterectomy, the patient had an indwelling Workman catheter and multiple admissions with recurrent UTI's. CURRENT MEDICATIONS: The patient is taking Ambien 5 mg daily, meclizine 25 mg b.i.d., hydralazine 50 b.i.d., aspirin 81 mg daily, ciprofloxacin 500 mg, amiodarone 200 mg, Eliquis 2.5 mg daily, atorvastatin 40 mg, metoprolol tartrate 12.5 mg p.o. b.i.d., clopidogrel 75 mg daily, acetaminophen, and lisinopril. ALLERGY: NO KNOWN DRUG ALLERGY. REVIEW OF SYSTEMS: As per HPI. PHYSICAL EXAMINATION: As follows; VITAL SIGNS: Temperature afebrile, heart rate 77, and blood pressure 153/80. HEENT: PERRLA intact. NECK: Supple. No carotid bruits or thyromegaly. CHEST: Clear to auscultation. HEART: S1 and S2 regular. ABDOMEN: Soft. EXTREMITIES: Clubbing and cyanosis negative. LABORATORY DATA: Blood workup as follows; WBC 8.8, hemoglobin 9.2, hematocrit 32.4, and platelet count 279. Chemistry shows sodium 138, potassium 4.6, chloride 105, carbon dioxide 27, anion gap of 11, BUN 25, and creatinine 1.3. IMPRESSION: An 83-year-old female, with past medical history significant for nonobstructive coronary artery disease, admitted with acute coronary syndrome, benign positional vertigo status post syncope, fall. Cardiac catheterization revealed left anterior descending disease. The patient underwent two drug-eluting stents after having fractional flow reserve and positive troponin, [id number] myocardial infarction, and history of paroxysmal atrial fibrillation, on Eliquis, on amiodarone as well now the patient is in normal sinus. RECOMMENDATIONS: Continue Plavix 75 mg daily and Eliquis 2.5 mg p.o. b.i.d. Discontinue aspirin because of age and fall, high risk of bleeding. Continue atorvastatin. Continue amiodarone. Continue metoprolol 12.5 mg daily. Continue lisinopril. Monitor renal function. Repeat the blood workup in the morning. WE WILL DISCONTINUE ASPIRIN BECAUSE THE PATIENT IS ON TRIPLE THERAPY; ELIQUIS, PLAVIX, AND HIGH RISK OF FALL. Recent stent was done, so we will continue Plavix 75 mg daily, continue Eliquis for one year and then discontinue Plavix and in the future with a baby aspirin. Repeat blood workup in the morning. Jimmy Garcia MD
--- NOTE | 2019-01-24 21:41 | CON ---
DATE: 01/24/2019 HISTORY OF PRESENT ILLNESS: This is an 83-year-old female with past medical history of atrial fibrillation, on Eliquis; hypertension; obesity; uterine cancer, status post hysterectomy; GERD; and depression, came with complaint of dizziness, seen on the medical floor, and now transferred to TCU. CAT scan of the head was done, which was negative. PAST MEDICAL HISTORY: Atrial fibrillation, hypertension, obesity, GERD, depression, and status post hysterectomy for uterine cancer. PHYSICAL EXAMINATION: HEENT: Normocephalic and atraumatic. NECK: Supple. NEUROLOGIC: Awake and oriented to self. Cranial nerves II through XII were tested. Pupils reactive. EOMs intact. Visual field full. No facial asymmetry. Tongue midline. Motor examination, moves all extremities equally. Tone normal. Deep tendon reflexes 1+. Both plantars downgoing. Sensory appears intact. Cerebellar gait deferred. IMPRESSION AND PLAN: Dizziness and atrial fibrillation and multiple medical problems. Workup in progress. CAT scan of the head was negative. Continue physical therapy. We will follow up. Maury Villanueva MD
[2019-01-25] MEDS: Pantoprazole 40 mg EC Tab PO SCH (05:33)
[2019-01-25 07:10] LABS: BASO # 0.02 K/mm3 (0.0-2.0); BASO % 0.3 % (0.0-3.0); EOS # 0.1 (0.0-0.7); EOS % 0.9 % (1.5-5.0); HEMOGLOBIN 8.5 g/dL (12.0-16.0); LYMPH % 14.5 % (22.0-35.0); MEAN CELL VOLUME 87.9 fl (80.0-105.0); MEAN CORPUSCULAR HEMOGLOBIN 27.8 pg (25.0-35.0); MEAN CORPUSCULAR HGB CONC 31.6 g/dl (31.0-37.0); MEAN PLATELET VOLUME 9.8 fl (7.0-11.0); MONO # 0.7 (0.1-0.6); MONO % 10.2 % (1.0-6.0); RBC 3.06 10^6/uL (3.5-6.1); RED CELL DISTRIBUTION WIDTH 19.4 % (11.5-14.5); WHITE BLOOD COUNT 6.8 10^3/uL (4.5-11.0)
[2019-01-25 07:41] LABS: ALB/GLOB RATIO 1.1 (1.1-1.8); ALBUMIN 2.9 g/dL (3.0-4.8); CALCIUM 8.1 mg/dL (8.4-10.5)
--- NOTE | 2019-01-25 21:19 | CON ---
DATE: 01/25/2019 REASON FOR CONSULTATION AND FOLLOWUP: Continuity of care in transitional care unit, status post PTCA of LAD with 2 drug-eluting stents, benign positional vertigo, history of paroxysmal atrial fibrillation. BRIEF CLINICAL HISTORY: The patient denies any chest pain or shortness of breath. Daughter is at bedside. The patient sitting on chair. PHYSICAL EXAMINATION: As follows; VITAL SIGNS: Temperature afebrile, heart rate 65, and blood pressure 114/71. HEENT: PERRLA. Extraocular muscles intact. NECK: Supple. No carotid bruits or thyromegaly. CHEST: Clear to auscultation. HEART: S1 and S2 regular. ABDOMEN: Soft. EXTREMITIES: Clubbing and cyanosis negative. LABORATORY DATA: Her blood workup is as follows; WBC 6.8, hemoglobin 8.5, hematocrit 26.9, and platelet count 219. Chemistry shows sodium 137, potassium 4.6, chloride 104, carbon dioxide 27, anion gap of 11, BUN 30 and creatinine 1.3. IMPRESSION AND PLAN: An 83-year-old female with past medical history significant for paroxysmal atrial fibrillation, history of cervical cancer, status post hysterectomy after. The patient has indwelling Workman catheter, recurrent urinary tract infection multiple admissions, admitted at this time after having a fall and dizziness. Troponin positive, [id number] myocardial infarction. Subsequently, the patient had cardiac catheterization with 2 drug-eluting stents in mid and distal left anterior descending. History of transesophageal echocardiography, failed cardioversion, paroxysmal atrial fibrillation. Last echo dated 09/17/2018 revealed normal left ventricular function, moderate aortic stenosis, moderate aortic regurgitation, [id number] mitral regurgitation, moderate tricuspid regurgitation, moderate pulmonary hypertension, read by Dr. Roberts. Right ventricular systolic pressure 50, calculated ejection fraction 58%. Cardiac catheterization repeat, disease of left anterior descending dated 12/28/2012, history of significant mentioned cervical cancer. Though in echo it appears that the patient has moderate aortic stenosis, but in cath no significant aortic stenosis noted. No gradient across the aortic valve noted, though it was difficult to cross because of aortic sclerosis Amplatz AL1 catheter used, but again no significant gradient across the aortic valve noted, which means no significant aortic stenosis. The patient also complained of dizziness, possible benign positional vertigo, on meclizine, being followed by neurologist. Continue Plavix and continue Eliquis because of recurrent paroxysmal atrial fibrillation off aspirin. We will continue Plavix and Eliquis for 1 year and then followed by baby aspirin and Eliquis. Discussed with the daughter, the patient's blood pressure is relatively stable and controlled. Continue rehab therapy. Once therapy is completed, the patient will be able to go home. We will also put holding parameters for hydralazine p.o. t.i.d., hold for systolic less than 140 to prevent the patient going into hypotension and syncope. Continue amiodarone 200 mg, continue metoprolol 12.5 mg p.o. b.i.d. Thank you Dr. White, for providing us the opportunity in taking care of the patient, Emily Young. Jimmy Garcia MD
[2019-01-26] MEDS: Pantoprazole 40 mg EC Tab PO SCH (05:27)
[2019-01-26] MEDS: Multivitamin Therapeutic Tab PO SCH (08:36)
--- NOTE | 2019-01-26 11:42 | CP.PCM.PN ---
<Juan Forrest - Last Filed: 01/26/19 11:38> Subjective - Date & Time of Evaluation Date of Evaluation: 01/26/19 Time of Evaluation: 11:38 - Subjective Subjective: Medicine Progress Note for Dr. Clark Patient seen and examined at bedside. No acute overnight events. PT going well. Patient denies CP, SOB, n/v/d, abdominal pain, fever, chills, MILLIGAN, or dizziness. Objective - Vital Signs/Intake and Output Vital Signs (last 24 hours): Temp Pulse Resp BP Pulse Ox 97.4 F L 74 19 147/68 98 01/25/19 10:00 01/26/19 10:55 01/25/19 10:00 01/26/19 10:55 01/25/19 10:00 Intake and Output: 01/26/19 01/26/19 06:59 18:59 Output Total 2049 Balance -2049 - Medications Medications: Current Medications Acetaminophen (Tylenol 325mg Tab) 650 mg PO Q6H PRN PRN Reason: Pain, Mild (1-3) Amiodarone HCl (Cordarone) 200 mg PO DAILY [facility] Last Admin: 01/26/19 10:54 Dose: 200 mg Apixaban (Eliquis) 2.5 mg PO BID [facility]; Protocol Last Admin: 01/26/19 10:55 Dose: 2.5 mg Atorvastatin Calcium (Lipitor) 40 mg PO DIN [facility] Last Admin: 01/25/19 18:00 Dose: 40 mg Ciprofloxacin (Cipro) 500 mg PO DAILY [facility]; Protocol Stop: 01/28/19 11:17 Clopidogrel Bisulfate (Plavix) 75 mg PO DAILY [facility] Last Admin: 01/26/19 10:56 Dose: 75 mg Ferrous Sulfate (Feosol) 324 mg PO 0800,1400,1800 [facility] Hydralazine HCl (Apresoline) 50 mg PO Q8 [facility] Last Admin: 01/26/19 05:27 Dose: 50 mg Lisinopril (Zestril) 40 mg PO DAILY [facility] Last Admin: 01/26/19 10:56 Dose: 40 mg Meclizine HCl (Antivert) 25 mg PO Q12 [facility] Last Admin: 01/26/19 10:53 Dose: 25 mg Metoprolol Tartrate (Lopressor) 12.5 mg PO BID [facility] Last Admin: 01/26/19 10:55 Dose: 12.5 mg Multivitamins (Thera Tab) 1 tab PO 0800 [facility] Last Admin: 01/26/19 08:36 Dose: 1 tab Pantoprazole Sodium (Protonix Ec Tab) 40 mg PO 0600 [facility] Last Admin: 01/26/19 05:27 Dose: 40 mg Paroxetine HCl (Paxil) 20 mg PO 1800 [facility] Last Admin: 01/25/19 18:26 Dose: 20 mg Zolpidem Tartrate (Ambien) 5 mg PO HS PRN; Protocol PRN Reason: Insomnia Last Admin: 01/25/19 21:12 Dose: 5 mg - Labs Labs: 01/25/19 06:30 01/25/19 06:30 - Constitutional Appears: No Acute Distress - Head Exam Additional comments: ecchymoses - Eye Exam Eye Exam: Normal appearance - ENT Exam ENT Exam: Mucous Membranes Moist - Respiratory Exam Respiratory Exam: Clear to Ausculation Bilateral. absent: Rales, Rhonchi, Wheezes - Cardiovascular Exam Cardiovascular Exam: RRR, +S1, +S2. absent: Gallop, Rubs, Murmur - GI/Abdominal Exam GI & Abdominal Exam: Soft. absent: Distended, Guarding, Tenderness, Rebound - Extremities Exam Extremities Exam: Normal Inspection - Back Exam Back Exam: NORMAL INSPECTION - Neurological Exam Neurological Exam: Alert, Awake, Oriented x3 - Psychiatric Exam Psychiatric exam: Normal Affect, Normal Mood - Skin Skin Exam: Normal Color, Warm Assessment and Plan - Assessment and Plan (Free Text) Assessment: Patient is an 83-year-old F with PMH of atrial fibrillation and chronic hidalgo catheter who presented with dizziness and 2 episodes of mechanical falls and subsequently was found to have NSTEMI. Patient went for cardiac catherization today with BIPIN placement. Plan: Dizziness and Multiple Falls - Head CT: negative for acute intracranial abnormalities - MUGA scan from previous admission showed LVEF of 64% - Meclizine 25mg PO Q12 - Neurology consulted, Dr. Villanueva - Fall precautions - PT/OT eval and treat UTI - Urine culture grew proteus - Continue Ciprofloxacin day 2 of 5 - Patient has long-term hidalgo catheter for chronic urinary retention - Follows up with her urologist monthly to replace catheter NSTEMI, resolved - s/p cardiac catherization: 70% LAD stenosis, 2 BIPIN in the mid and distal LAD - Continue Plavix, Eliquis for 1 year; then ASA and Eliquis due to high fall risk - Cont Lisinopril, Metoprolol, Lipitor - Cardiology consulted, Dr. Garcia HTN - Cont Hydralazine 50mg PO TID - Cont Zestril 40mg PO daily - Cont Lopressor 12.5mg PO BID CHFpEF - Clinically improved/stable, exacerbation resolved - CXR: consistent with pulmonary edema bilaterally - Elevate head of bed 30 degrees - Strict I&O - Daily weight Paroxysmal Atrial Fibrillation - Cont Amiodarone 200mg PO QD - Cont Lopressor 12.5mg PO BID - Eliquis 2.5 mg PO BID Depression - Cont paxil 20mg PO daily GERD - Cont Protonix 40 mg PO daily HLD - Lipitor 40mg PO HS DVT ppx: Eliquis GI ppx: protonix 40mg po daily Patient seen and case discussed with attending, Dr. Clark. Toni Forrest DO PGY2 <Marla Clark - Last Filed: 01/26/19 12:35> Objective - Vital Signs/Intake and Output Vital Signs (last 24 hours): Temp Pulse Resp BP Pulse Ox 97.4 F L 74 19 147/68 98 01/25/19 10:00 01/26/19 10:55 01/25/19 10:00 01/26/19 10:55 01/25/19 10:00 Intake and Output: 01/26/19 01/26/19 06:59 18:59 Output Total 2049 Balance -2049 - Medications Medications: Current Medications Acetaminophen (Tylenol 325mg Tab) 650 mg PO Q6H PRN PRN Reason: Pain, Mild (1-3) Amiodarone HCl (Cordarone) 200 mg PO DAILY [facility] Last Admin: 01/26/19 10:54 Dose: 200 mg Apixaban (Eliquis) 2.5 mg PO BID [facility]; Protocol Last Admin: 01/26/19 10:55 Dose: 2.5 mg Atorvastatin Calcium (Lipitor) 40 mg PO DIN [facility] Last Admin: 01/25/19 18:00 Dose: 40 mg Ciprofloxacin (Cipro) 500 mg PO DAILY [facility]; Protocol Stop: 01/28/19 11:17 Clopidogrel Bisulfate (Plavix) 75 mg PO DAILY [facility] Last Admin: 01/26/19 10:56 Dose: 75 mg Ferrous Sulfate (Feosol) 324 mg PO 0800,1400,1800 [facility] Hydralazine HCl (Apresoline) 50 mg PO Q8 [facility] Last Admin: 01/26/19 05:27 Dose: 50 mg Lisinopril (Zestril) 40 mg PO DAILY [facility] Last Admin: 01/26/19 10:56 Dose: 40 mg Meclizine HCl (Antivert) 25 mg PO Q12 [facility] Last Admin: 01/26/19 10:53 Dose: 25 mg Metoprolol Tartrate (Lopressor) 12.5 mg PO BID [facility] Last Admin: 01/26/19 10:55 Dose: 12.5 mg Multivitamins (Thera Tab) 1 tab PO 0800 [facility] Last Admin: 01/26/19 08:36 Dose: 1 tab Pantoprazole Sodium (Protonix Ec Tab) 40 mg PO 0600 [facility] Last Admin: 01/26/19 05:27 Dose: 40 mg Paroxetine HCl (Paxil) 20 mg PO 1800 [facility] Last Admin: 01/25/19 18:26 Dose: 20 mg Zolpidem Tartrate (Ambien) 5 mg PO HS PRN; Protocol PRN Reason: Insomnia Last Admin: 01/25/19 21:12 Dose: 5 mg - Labs Labs: 01/25/19 06:30 01/25/19 06:30 Attending/Attestation - Attestation I have personally seen and examined this patient.: Yes I have fully participated in the care of the patient.: Yes I have reviewed all pertinent clinical information, including history, physical exam and plan: Yes Notes (Text): 01/26/19 12:27 83 year old female with past medical history of hypertension, paroxysmal afib, urinary incontinence with chronic indwelling hidalgo, and dyslipidemia who presented with complaint of dizziness and fall at home. Hospital course was com plicated with CHF and episode of chest pain with elevated troponin suggestive of NSTEMI. Patient has cardiac cath which showed critical one vessel mid and distal LAD 70% stenosis and patient had BIPIN PTCA of mid and distal LAD. Continue with plavix, metoprolol, lisinopril and statin. Patient is also on eliquis for history of paroxysmal afib. Patient is on antibiotics for UTI. Continue with physical therapy as tolerated while in TCU. Family is at bedside and questions were answered. Marla Clark MD Hospitalist
--- NOTE | 2019-01-26 20:50 | PN ---
DATE: 01/26/2019 REASON FOR CONSULTATION: Continuity of care in transitional care unit status post PTCA of LAD with two drug eluting stent, benign positional vertigo, and history of paroxysmal atrial fibrillation. SUBJECTIVE: The patient denies any chest pain, shortness of breath, any palpitation. PHYSICAL EXAMINATION: GENERAL: Not in apparent distress. VITAL SIGNS: As follows, temperature afebrile, heart rate 60, blood pressure 130/70. HEENT: PERRLA. Extraocular muscles are intact. NECK: Supple. No carotid bruits. No thyromegaly. CHEST: Clear to auscultation. HEART: S1 and S2, regular. ABDOMEN: Soft. EXTREMITIES: Clubbing and cyanosis negative. LABORATORY DATA: Blood workup: WBC as of yesterday 6.8, hemoglobin 8.1, hematocrit 26.9, platelet count 219. Chemistry shows sodium 130, potassium 4.6, chloride 107, carbon dioxide 27, anion gap of 11, BUN 30, and creatinine 1.3. IMPRESSION: An 83-year-old female with a past medical history significant for paroxysmal atrial fibrillation, on anticoagulation, history of coronary artery disease, history of non-ST segment myocardial infarction, admission, status post percutaneous transluminal coronary angioplasty with drug eluting stent to a left anterior descending after fractional flow reserve was done, deconditioning of the body, benign positional vertigo, history of chronic kidney disease, now in transitional care unit for the continuity of care. RECOMMENDATION: Continue Eliquis, continue Plavix 75 mg daily, aspirin discontinued, continue meclizine, continue hydralazine for better control of the blood pressure. Start hematinics as well as start multivitamin. Monitor renal function. Blood workup in a day or two. We will follow with you. Continue rehab, discussed with the daughter. Thank you Dr. White for providing us the opportunity in taking care of the patient, Emily Young. Jimmy Garcia MD
[2019-01-27] MEDS: Pantoprazole 40 mg EC Tab PO SCH (05:41)
[2019-01-27] MEDS: Multivitamin Therapeutic Tab PO SCH (07:55)
--- NOTE | 2019-01-27 13:54 | PN ---
DATE: 01/27/2019 REASON FOR CONSULTATION AND FOLLOWUP: Continuity of getting Transitional Care Unit. He has status post PTCA of LAD with a two drug eluting stent, benign positional vertigo, history of paroxysmal atrial fibrillation. SUBJECTIVE: The patient denies any chest pain, shortness of breath and any palpitation. OBJECTIVE: GENERAL: Not in apparent distress. VITAL SIGNS: Temperature afebrile. Heart rate 50 and blood pressure 125/73. HEENT: PERRLA. Extraocular muscles intact. NECK: Supple. No carotid bruits or thyromegaly. CHEST: Clear to auscultation. HEART: S1 and S2, regular. ABDOMEN: Soft. EXTREMITIES: Clubbing and cyanosis negative. LABORATORY DATA: Blood workup, WBC 6.8, hemoglobin 8.5, hematocrit 26.9 and platelet count 219. Chemistry shows sodium 137, potassium 4.6, chloride 104, carbon dioxide 27, anion gap of 11, BUN 30 and creatinine 1.3. IMPRESSION: A 83-year-old female with past medical history significant for recent unstable angina, non-ST segment myocardial infarction, status post percutaneous transluminal coronary angioplasty with two drug eluting stent in left anterior descending recent on this admission, history of paroxysmal atrial fibrillation, history of hysterectomy, history of cervical cancer, history of one point the patient was catheterizing herself and with multiple urinary tract infections, Workman Catheter, deconditioning of body. Now, the patient is in transitional care unit for this continuity of care. RECOMMENDATION: Continue Eliquis for paroxysmal atrial fibrillation. Continue Plavix 75 mg daily. Continue aspirin. Continue meclizine. Continue hydralazine for better control of the blood pressure. Continue atorvastatin. Continue iron supplementation. We will follow with you. status stable. Thank you Dr. White for providing us the opportunity in taking care of the patient, Emily Young. We will repeat the blood work in the day or two. Jimmy Garcia MD
[2019-01-28] MEDS: Pantoprazole 40 mg EC Tab PO SCH (05:18)
[2019-01-28] MEDS: Multivitamin Therapeutic Tab PO SCH (08:12)
--- NOTE | 2019-01-28 10:12 | PN ---
DATE: 01/28/2019 LOCATION: The patient is in room 303, bed 1. REASON FOR CONSULTATION AND FOLLOWUP: Coronary artery disease, status post PTCA of LAD with two drug eluting stents, benign positional vertigo and history of paroxysmal atrial fibrillation. SUBJECTIVE: The patient is sitting in bed without any chest pain, shortness of breath or palpitation. OBJECTIVE: VITAL SIGNS: Blood pressure 144/64, yesterday blood pressure was 134/63, respirations 18, pulse 76, and the patient is afebrile. HEENT: Head is normocephalic. Eyes; pupils normal. Conjunctivae slightly pale. NECK: JVP low. Carotids equal. THORAX: AP diameter normal. LUNGS: Clear. CARDIOVASCULAR: S1 and S2. ABDOMEN: Soft and nontender. No organomegaly. Bowel sounds normal. EXTREMITIES: No clubbing. No cyanosis. LABORATORY DATA: WBC 6.8, hemoglobin 8.5, hematocrit 26.9, and platelets 219. Sodium 136, potassium 4.6, BUN 30, creatinine 1.3, random glucose 134 and calcium 8.1. Phosphorus, magnesium and bilirubin are normal. Total protein 5.4 and albumin 2.9. DIAGNOSES: Non-ST elevation myocardial infarction, status post left anterior descending angioplasty with two drug eluting stents, history of paroxysmal atrial fibrillation, history of cervical cancer, at one point the patient use to do catheterization herself with multiple urinary tract infections and deconditioning. PLAN: The patient is getting physical therapy, we will continue that. Denies any cardiac symptoms while getting physical therapy. The patient on meclizine 25 mg every 12 hours, hydralazine 50 mg every 8 hours, Cipro 500 mg p.o. daily, amiodarone 200 mg p.o. daily, Eliquis 2.5 mg b.i.d., p.o. b.id., atorvastatin 40 mg daily, metoprolol tartrate 12.5 mg p.o. t.i.d., Plavix 75 mg daily, Protonix 40 daily and Zestril 40 daily. We will continue present therapy. We will follow with you. Jimmy Kidd MD
--- NOTE | 2019-01-28 12:52 | CP.PCM.PN ---
<Juan Forrest - Last Filed: 01/28/19 12:49> Subjective - Date & Time of Evaluation Date of Evaluation: 01/28/19 Time of Evaluation: 12:49 - Subjective Subjective: Medicine Progress Note for Dr. Clark Patient seen and examined at bedside. No acute overnight events. Patient states PT is going well. Patient denies CP, SOB, n/v/d, abdominal pain, fever, chills, MILLIGAN, or dizziness. Objective - Vital Signs/Intake and Output Vital Signs (last 24 hours): Temp Pulse Resp BP Pulse Ox 98.1 F 63 18 132/69 95 01/27/19 16:00 01/28/19 10:16 01/27/19 16:00 01/28/19 10:16 01/27/19 16:31 Intake and Output: 01/28/19 01/28/19 06:59 18:59 Intake Total 320 Output Total 2600 Balance -2280 - Medications Medications: Current Medications Acetaminophen (Tylenol 325mg Tab) 650 mg PO Q6H PRN PRN Reason: Pain, Mild (1-3) Last Admin: 01/28/19 11:37 Dose: 650 mg Amiodarone HCl (Cordarone) 200 mg PO DAILY [facility] Last Admin: 01/28/19 10:16 Dose: 200 mg Apixaban (Eliquis) 2.5 mg PO BID [facility]; Protocol Last Admin: 01/28/19 10:17 Dose: 2.5 mg Atorvastatin Calcium (Lipitor) 40 mg PO DIN [facility] Last Admin: 01/27/19 17:27 Dose: 40 mg Clopidogrel Bisulfate (Plavix) 75 mg PO DAILY [facility] Last Admin: 01/28/19 10:17 Dose: 75 mg Ferrous Sulfate (Feosol) 324 mg PO 0800,1400,1800 [facility] Last Admin: 01/28/19 08:12 Dose: 324 mg Hydralazine HCl (Apresoline) 50 mg PO Q8 [facility] Last Admin: 01/28/19 05:18 Dose: 50 mg Lisinopril (Zestril) 40 mg PO DAILY [facility] Last Admin: 01/28/19 10:18 Dose: 40 mg Meclizine HCl (Antivert) 25 mg PO Q12 [facility] Last Admin: 01/28/19 10:16 Dose: 25 mg Metoprolol Tartrate (Lopressor) 12.5 mg PO 0800,1800 [facility]; Protocol Last Admin: 01/28/19 08:12 Dose: 12.5 mg Multivitamins (Thera Tab) 1 tab PO 0800 [facility] Last Admin: 01/28/19 08:12 Dose: 1 tab Pantoprazole Sodium (Protonix Ec Tab) 40 mg PO 0600 [facility] Last Admin: 01/28/19 05:18 Dose: 40 mg Paroxetine HCl (Paxil) 20 mg PO 1800 [facility]; Protocol Last Admin: 01/27/19 17:28 Dose: 20 mg Zolpidem Tartrate (Ambien) 5 mg PO HS PRN; Protocol PRN Reason: Insomnia Last Admin: 01/27/19 21:16 Dose: 5 mg - Labs Labs: 01/25/19 06:30 01/25/19 06:30 - Constitutional Appears: No Acute Distress - Head Exam Additional comments: ecchymoses, improving - Eye Exam Eye Exam: Normal appearance - ENT Exam ENT Exam: Mucous Membranes Moist, Normal Exam - Respiratory Exam Respiratory Exam: Clear to Ausculation Bilateral. absent: Rales, Rhonchi, Wheezes - Cardiovascular Exam Cardiovascular Exam: RRR, +S1, +S2. absent: Gallop, Rubs, Murmur - GI/Abdominal Exam GI & Abdominal Exam: Soft. absent: Distended, Guarding, Tenderness, Rebound - Extremities Exam Extremities Exam: Normal Inspection - Back Exam Back Exam: NORMAL INSPECTION - Neurological Exam Neurological Exam: Alert, Awake, Oriented x3 - Psychiatric Exam Psychiatric exam: Normal Affect, Normal Mood - Skin Skin Exam: Dry, Intact, Normal Color, Warm Assessment and Plan - Assessment and Plan (Free Text) Assessment: Patient is an 83-year-old F with PMH of atrial fibrillation and chronic hidalgo catheter who presented with dizziness and 2 episodes of mechanical falls and subsequently was found to have NSTEMI. Patient had cardiac catherization during hospital course with placement of 2 BIPIN in mid and distal LAD. Patient transferred to TCU for further therapy. Plan: Dizziness and Multiple Falls - Head CT: negative for acute intracranial abnormalities - MUGA scan from previous admission showed LVEF of 64% - Meclizine 25mg PO Q12 - Neurology consulted, Dr. Villanueva - Fall precautions - PT/OT eval and treat UTI - Urine culture grew proteus - Continue Ciprofloxacin day 5 of 5 - Patient has long-term hidalgo catheter for chronic urinary retention - Follows up with her urologist monthly to replace catheter NSTEMI, resolved - s/p cardiac catherization: 70% LAD stenosis, 2 BIPIN in the mid and distal LAD - Continue Plavix, Eliquis for 1 year; then ASA and Eliquis due to high fall risk - Cont Lisinopril, Metoprolol, Lipitor - Cardiology consulted, Dr. Garcia HTN - Hypertensive in AM, normotensive during day; will consider adding low dose CCB, continue to monitor trend - Cont Hydralazine 50mg PO TID - Cont Zestril 40mg PO daily - Cont Lopressor 12.5mg PO BID CHFpEF - Clinically improved/stable, exacerbation resolved - CXR: consistent with pulmonary edema bilaterally - Elevate head of bed 30 degrees - Strict I&O - Daily weight Paroxysmal Atrial Fibrillation - Cont Amiodarone 200mg PO QD - Cont Lopressor 12.5mg PO BID - Eliquis 2.5 mg PO BID Depression - Cont paxil 20mg PO daily GERD - Cont Protonix 40 mg PO daily HLD - Lipitor 40mg PO HS DVT ppx: Eliquis GI ppx: protonix 40mg po daily Patient seen and case discussed with attending, Dr. Clark. Toni Forrest DO PGY2 <Marla Clark - Last Filed: 01/28/19 13:27> Objective - Vital Signs/Intake and Output Vital Signs (last 24 hours): Temp Pulse Resp BP Pulse Ox 98.1 F 63 18 132/69 95 01/27/19 16:00 01/28/19 10:16 01/27/19 16:00 01/28/19 10:16 01/27/19 16:31 Intake and Output: 01/28/19 01/28/19 06:59 18:59 Intake Total 320 Output Total 2600 Balance -2280 - Medications Medications: Current Medications Acetaminophen (Tylenol 325mg Tab) 650 mg PO Q6H PRN PRN Reason: Pain, Mild (1-3) Last Admin: 01/28/19 11:37 Dose: 650 mg Amiodarone HCl (Cordarone) 200 mg PO DAILY [facility] Last Admin: 01/28/19 10:16 Dose: 200 mg Apixaban (Eliquis) 2.5 mg PO BID [facility]; Protocol Last Admin: 01/28/19 10:17 Dose: 2.5 mg Atorvastatin Calcium (Lipitor) 40 mg PO DIN [facility] Last Admin: 01/27/19 17:27 Dose: 40 mg Clopidogrel Bisulfate (Plavix) 75 mg PO DAILY [facility] Last Admin: 01/28/19 10:17 Dose: 75 mg Ferrous Sulfate (Feosol) 324 mg PO 0800,1400,1800 [facility] Last Admin: 01/28/19 08:12 Dose: 324 mg Hydralazine HCl (Apresoline) 50 mg PO Q8 [facility] Last Admin: 01/28/19 05:18 Dose: 50 mg Lisinopril (Zestril) 40 mg PO DAILY [facility] Last Admin: 01/28/19 10:18 Dose: 40 mg Meclizine HCl (Antivert) 25 mg PO Q12 [facility] Last Admin: 01/28/19 10:16 Dose: 25 mg Metoprolol Tartrate (Lopressor) 12.5 mg PO 0800,1800 [facility]; Protocol Last Admin: 01/28/19 08:12 Dose: 12.5 mg Multivitamins (Thera Tab) 1 tab PO 0800 [facility] Last Admin: 01/28/19 08:12 Dose: 1 tab Pantoprazole Sodium (Protonix Ec Tab) 40 mg PO 0600 [facility] Last Admin: 01/28/19 05:18 Dose: 40 mg Paroxetine HCl (Paxil) 20 mg PO 1800 [facility]; Protocol Last Admin: 01/27/19 17:28 Dose: 20 mg Zolpidem Tartrate (Ambien) 5 mg PO HS PRN; Protocol PRN Reason: Insomnia Last Admin: 01/27/19 21:16 Dose: 5 mg - Labs Labs: 01/25/19 06:30 01/25/19 06:30 Attending/Attestation - Attestation I have personally seen and examined this patient.: Yes I have fully participated in the care of the patient.: Yes I have reviewed all pertinent clinical information, including history, physical exam and plan: Yes Notes (Text): 01/28/19 13:26 83 year old female with past medical history of hypertension, paroxysmal afib, urinary incontinence with chronic indwelling hidalgo, and dyslipidemia who presented with complaint of dizziness and fall at home. Hospital course was complicated with CHF and episode of chest pain with elevated troponin suggestive of NSTEMI. Patient has cardiac cath which showed critical one vessel mid and distal LAD 70% stenosis and patient had BIPIN PTCA of mid and distal LAD. Continue with plavix, metoprolol, lisinopril and statin. BP is intermittently running high; will consider low dose norvasc if persistent. Patient is also on eliquis for history of paroxysmal afib. Patient is on antibiotics for UTI. Continue with physical therapy as tolerated while in TCU. Family is at bedside and questions were answered. Marla Clark MD Hospitalist
[2019-01-29] MEDS: Pantoprazole 40 mg EC Tab PO SCH (05:25)
[2019-01-29] MEDS: Multivitamin Therapeutic Tab PO SCH (08:22)
[2019-01-29 10:58] VITALS: RESP 20
--- NOTE | 2019-01-29 14:28 | PN ---
DATE: 01/29/2019 LOCATION: The patient is in room 303, bed 1. REASON FOR CONSULTATION AND FOLLOWUP: Coronary artery disease, status post PTCA of LAD with 2 drug-eluting stents, benign positional vertigo, and paroxysmal atrial fibrillation from history. SUBJECTIVE: The patient is sitting in bed without any chest pain, shortness of breath or palpitation. The patient is continuing to get physical therapy for deconditioning. PHYSICAL EXAMINATION: VITAL SIGNS: Blood pressure is 153/69, respirations 20, pulse 63, and temperature 97.1. HEENT: Head is normocephalic. Eyes; pupils normal. Conjunctivae slightly pale. NECK: JVP low. Carotids equal. THORAX: AP diameter normal. LUNGS: Clear. CARDIOVASCULAR: S1 and S2. ABDOMEN: Soft. No tenderness. No organomegaly. Bowel sounds normal. EXTREMITIES: No clubbing. No cyanosis. LABORATORY DATA: WBC 6.8, hemoglobin 8.5, hematocrit 26.9, and platelets 219. Sodium 137, potassium 4.6, BUN 30, creatinine 1.3, random glucose 134, calcium 8.1, and phosphorus 3.8. DIAGNOSES: Non-ST elevation myocardial infarction, status post left anterior descending angioplasty with 2 drug-eluting stents, history of paroxysmal atrial fibrillation, history of cervical cancer. At one point, the patient used to do catheterization herself with multiple urinary tract infections and deconditioning. PLAN: Clinically, the patient's cardiac status is stable. She has no cardiac symptom at present and will continue present therapy along with physical therapy. MEDICATIONS: The patient is on hydralazine 50 mg every 8 hours, amiodarone 200 mg p.o. daily, Eliquis 2.5 b.i.d., atorvastatin 40 daily, metoprolol tartrate 12.5 p.o. t.i.d., Plavix 75 mg daily, Protonix 40 daily, and Zestril 40 daily. Jimmy Kidd MD
[2019-01-30] MEDS: Pantoprazole 40 mg EC Tab PO SCH (05:48)
[2019-01-30] MEDS: Multivitamin Therapeutic Tab PO SCH (07:49)
--- NOTE | 2019-01-30 10:32 | RAD ---
Date of service: 01/30/2019 PROCEDURE: Radiographs of the Right Shoulder HISTORY: pain COMPARISON: No prior. TECHNIQUE: 3 views obtained. FINDINGS: BONES: No evidence of fracture JOINTS: Superior displacement of the humeral head consistent with a chronic rotator cuff tear. Degenerative changes seen in the acromion SOFT TISSUES: Normal. OTHER FINDINGS: None. IMPRESSION: Superior displacement of the humeral head consistent with a chronic rotator cuff tear. Degenerative changes seen in the acromion
--- NOTE | 2019-01-30 13:01 | CP.PCM.PN ---
<Jaun Forrest - Last Filed: 01/30/19 12:50> Subjective - Date & Time of Evaluation Date of Evaluation: 01/30/19 Time of Evaluation: 12:51 - Subjective Subjective: Medicine Progress Note for Dr. Clark Patient seen and examined at bedside. No acute overnight events. Mild right shoulder discomfort. Patient denied CP, SOB, n/v/d, abdominal pain, fever, chills, MILLIGAN, or dizziness. Objective - Vital Signs/Intake and Output Vital Signs (last 24 hours): Temp Pulse Resp BP Pulse Ox 98 F 60 20 178/80 H 96 01/30/19 10:00 01/30/19 10:00 01/30/19 10:00 01/30/19 10:40 01/30/19 10:00 Intake and Output: 01/30/19 01/30/19 06:59 18:59 Intake Total 360 Output Total 900 Balance -540 - Medications Medications: Current Medications Acetaminophen (Tylenol 325mg Tab) 650 mg PO Q6H PRN PRN Reason: Pain, Mild (1-3) Last Admin: 01/30/19 00:15 Dose: 650 mg Amiodarone HCl (Cordarone) 200 mg PO DAILY [facility] Last Admin: 01/30/19 09:59 Dose: 200 mg Amlodipine Besylate (Norvasc) 10 mg PO DAILY [facility] Last Admin: 01/30/19 10:40 Dose: 10 mg Apixaban (Eliquis) 2.5 mg PO BID [facility]; Protocol Last Admin: 01/30/19 10:00 Dose: 2.5 mg Atorvastatin Calcium (Lipitor) 40 mg PO DIN [facility] Last Admin: 01/29/19 17:46 Dose: 40 mg Clopidogrel Bisulfate (Plavix) 75 mg PO DAILY [facility] Last Admin: 01/30/19 10:01 Dose: 75 mg Ferrous Sulfate (Feosol) 324 mg PO 0800,1400,1800 [facility] Last Admin: 01/30/19 07:49 Dose: 324 mg Hydralazine HCl (Apresoline) 50 mg PO Q8 [facility] Last Admin: 01/30/19 05:48 Dose: 50 mg Lisinopril (Zestril) 40 mg PO DAILY [facility] Last Admin: 01/30/19 10:01 Dose: 40 mg Meclizine HCl (Antivert) 25 mg PO Q12 [facility] Last Admin: 01/30/19 10:39 Dose: 25 mg Metoprolol Tartrate (Lopressor) 12.5 mg PO 0800,1800 [facility]; Protocol Last Admin: 01/30/19 07:49 Dose: 12.5 mg Multivitamins (Thera Tab) 1 tab PO 0800 [facility] Last Admin: 01/30/19 07:49 Dose: 1 tab Pantoprazole Sodium (Protonix Ec Tab) 40 mg PO 0600 [facility] Last Admin: 01/30/19 05:48 Dose: 40 mg Paroxetine HCl (Paxil) 20 mg PO 1800 [facility]; Protocol Last Admin: 01/29/19 17:46 Dose: 20 mg Zolpidem Tartrate (Ambien) 5 mg PO HS PRN; Protocol PRN Reason: Insomnia Last Admin: 01/29/19 21:11 Dose: 5 mg - Labs Labs: 01/25/19 06:30 01/25/19 06:30 - Constitutional Appears: No Acute Distress - Head Exam Head Exam: NORMAL INSPECTION - Eye Exam Eye Exam: EOMI, Normal appearance Pupil Exam: NORMAL ACCOMODATION - ENT Exam ENT Exam: Mucous Membranes Moist, Normal Exam - Neck Exam Neck Exam: Normal Inspection - Respiratory Exam Respiratory Exam: Clear to Ausculation Bilateral. absent: Rales, Rhonchi, Wheezes - Cardiovascular Exam Cardiovascular Exam: RRR, +S1, +S2. absent: Gallop, Rubs, Murmur - GI/Abdominal Exam GI & Abdominal Exam: Soft. absent: Guarding, Hernia, Mass, Rebound - Extremities Exam Additional comments: right shoulder fluid collection, superior displacment of humerus - Back Exam Back Exam: NORMAL INSPECTION - Neurological Exam Neurological Exam: Alert, Awake, Oriented x3 - Psychiatric Exam Psychiatric exam: Normal Mood - Skin Skin Exam: Dry, Warm Assessment and Plan - Assessment and Plan (Free Text) Assessment: Patient is an 83-year-old F with PMH of atrial fibrillation and chronic hidalgo catheter who presented with dizziness and 2 episodes of mechanical falls and subsequently was found to have NSTEMI. Patient had cardiac catherization during hospital course with placement of 2 BIPIN in mid and distal LAD. Patient transferred to TCU for further therapy. DC tomorrow. Plan: Chronic Right Rotator Cuff Tear - Shdr Xray showed superior displacement of the humeral head consistent, chronic rotator cuff tear - Ortho consulted Dizziness and Multiple Falls - Head CT: negative for acute intracranial abnormalities - MUGA scan from previous admission showed LVEF of 64% - Meclizine 25mg PO Q12 - Neurology consulted, Dr. Villanueva - Fall precautions - PT/OT eval and treat UTI, resolved - Urine culture grew proteus - Cipro completed - Patient has long-term hidalgo catheter for chronic urinary retention - Follows up with her urologist monthly to replace catheter NSTEMI, resolved - s/p cardiac catherization: 70% LAD stenosis, 2 BIPIN in the mid and distal LAD - Continue Plavix, Eliquis for 1 year; then ASA and Eliquis due to high fall risk - Cont Lisinopril, Metoprolol, Lipitor - Cardiology consulted, Dr. Garcia HTN - Started on Norvasc 5 daily - Cont Hydralazine 50mg PO TID - Cont Zestril 40mg PO daily - Cont Lopressor 12.5mg PO BID CHFpEF - Clinically improved/stable, exacerbation resolved - CXR: consistent with pulmonary edema bilaterally - Elevate head of bed 30 degrees - Strict I&O - Daily weight Paroxysmal Atrial Fibrillation - Cont Amiodarone 200mg PO QD - Cont Lopressor 12.5mg PO BID - Eliquis 2.5 mg PO BID Depression - Cont paxil 20mg PO daily GERD - Cont Protonix 40 mg PO daily HLD - Lipitor 40mg PO HS DVT ppx: Eliquis GI ppx: protonix 40mg po daily Patient seen and case discussed with attending, Dr. Clark. Toni Forrest DO PGY2 <Marla Clark - Last Filed: 01/30/19 13:24> Objective - Vital Signs/Intake and Output Vital Signs (last 24 hours): Temp Pulse Resp BP Pulse Ox 98 F 60 20 178/80 H 96 01/30/19 10:00 01/30/19 10:00 01/30/19 10:00 01/30/19 10:40 01/30/19 10:00 Intake and Output: 01/30/19 01/30/19 06:59 18:59 Intake Total 360 Output Total 900 Balance -540 - Medications Medications: Current Medications Acetaminophen (Tylenol 325mg Tab) 650 mg PO Q6H PRN PRN Reason: Pain, Mild (1-3) Last Admin: 01/30/19 00:15 Dose: 650 mg Amiodarone HCl (Cordarone) 200 mg PO DAILY [facility] Last Admin: 01/30/19 09:59 Dose: 200 mg Amlodipine Besylate (Norvasc) 10 mg PO DAILY [facility] Last Admin: 01/30/19 10:40 Dose: 10 mg Apixaban (Eliquis) 2.5 mg PO BID [facility]; Protocol Last Admin: 01/30/19 10:00 Dose: 2.5 mg Atorvastatin Calcium (Lipitor) 40 mg PO DIN [facility] Last Admin: 01/29/19 17:46 Dose: 40 mg Clopidogrel Bisulfate (Plavix) 75 mg PO DAILY [facility] Last Admin: 01/30/19 10:01 Dose: 75 mg Ferrous Sulfate (Feosol) 324 mg PO 0800,1400,1800 [facility] Last Admin: 01/30/19 07:49 Dose: 324 mg Hydralazine HCl (Apresoline) 50 mg PO Q8 [facility] Last Admin: 01/30/19 05:48 Dose: 50 mg Lisinopril (Zestril) 40 mg PO DAILY [facility] Last Admin: 01/30/19 10:01 Dose: 40 mg Meclizine HCl (Antivert) 25 mg PO Q12 [facility] Last Admin: 01/30/19 10:39 Dose: 25 mg Metoprolol Tartrate (Lopressor) 12.5 mg PO 0800,1800 [facility]; Protocol Last Admin: 01/30/19 07:49 Dose: 12.5 mg Multivitamins (Thera Tab) 1 tab PO 0800 [facility] Last Admin: 01/30/19 07:49 Dose: 1 tab Pantoprazole Sodium (Protonix Ec Tab) 40 mg PO 0600 [facility] Last Admin: 01/30/19 05:48 Dose: 40 mg Paroxetine HCl (Paxil) 20 mg PO 1800 [facility]; Protocol Last Admin: 01/29/19 17:46 Dose: 20 mg Zolpidem Tartrate (Ambien) 5 mg PO HS PRN; Protocol PRN Reason: Insomnia Last Admin: 01/29/19 21:11 Dose: 5 mg - Labs Labs: 01/25/19 06:30 01/25/19 06:30 Attending/Attestation - Attestation I have personally seen and examined this patient.: Yes I have fully participated in the care of the patient.: Yes I have reviewed all pertinent clinical information, including history, physical exam and plan: Yes Notes (Text): 01/30/19 13:22 83 year old female with past medical history of hypertension, paroxysmal afib, urinary incontinence with chronic indwelling hidalgo, and dyslipidemia who presented with complaint of dizziness and fall at home. Hospital course was complicated with CHF and episode of chest pain with elevated troponin suggestive of NSTEMI. Patient has cardiac cath which showed critical one vessel mid and distal LAD 70% stenosis and patient had BIPIN PTCA of mid and distal LAD. Continue with plavix, metoprolol, lisinopril and statin. Also started on norvasc for elevated blood pressure. She is on eliquis for history of paroxysmal afib. Patient is s/p antibiotics for UTI. Complained of right should pain / swelling. Xray reviewed as above. Orthopedics evaluatin is requested. Continue with physical therapy as tolerated while in TCU. Family is at bedside and questions were answered. Marla Clark MD Hospitalist
--- NOTE | 2019-01-30 13:34 | PN ---
DATE: 01/30/2019 LOCATION: The patient is in room 303, bed 1. REASON FOR CONSULTATION AND FOLLOWUP: Coronary artery disease, status post PTCA of LAD with 2 drug-eluting stents, benign positional vertigo, history of paroxysmal atrial fibrillation and hypertension. SUBJECTIVE: The patient denies any chest pain, shortness of breath or palpitation present. The patient is in transitional care unit for deconditioning and physical therapy. PHYSICAL EXAMINATION: VITAL SIGNS: Blood pressure is 157/72, respirations 18, pulse 67. The patient is afebrile. HEENT: Head is normocephalic. Eyes; pupils normal. Conjunctivae slightly pale. NECK: JVP low. Carotid equal. THORAX: AP diameter normal. LUNGS: Clear. CARDIOVASCULAR: S1 and S2. ABDOMEN: Soft and nontender. No organomegaly. EXTREMITIES: No clubbing. No cyanosis. LABORATORY DATA: WBC 6.8, hemoglobin 8.5, hematocrit 26.9, and platelets 219. Sodium 137, potassium 4.6, BUN 30, creatinine 1.3, glucose 134, calcium 8.1, phosphorus and magnesium normal. AST and ALT normal. Total protein 5.4, albumin 2.9. DIAGNOSES: Status post non-ST elevation myocardial infarction, status post 2 drug-eluting stents in mid and distal left anterior descending, paroxysmal atrial fibrillation, hypertension, anemia, history of cervical cancer, chronic urinary retention with the patient having catheter, multiple urinary tract infections and deconditioning. PLAN: I started the patient on amlodipine 5 mg yesterday for blood pressure elevations, blood pressure still elevated so we will changed from today amlodipine to 10 mg daily. I will monitor blood pressure, the patient is already getting metoprolol 12.5 mg twice a day, Plavix 75 mg daily, ferrous sulfate 324 mg p.o. twice a day, amiodarone 200 mg daily, hydralazine 50 mg p.o. every 8 hour, lisinopril 40 mg daily, atorvastatin 40 mg daily, Eliquis 2.5 mg twice a day. We will monitor the blood pressure and repeat CBC and SMA-7 in the morning. We will follow with you. Jimmy Kidd MD [facility] # [id number]
[2019-01-31] MEDS: Pantoprazole 40 mg EC Tab PO SCH (05:43)
--- NOTE | 2019-01-31 07:09 | CP.PCM.DIS ---
<Annabella Jay - Last Filed: 01/31/19 10:41> Provider - Provider Date of Admission: 01/23/19 19:01 Attending physician: Marla Clark MD Primary care physician: Karly Pacheco MD Consults: 01/23/19 20:06 Social Work Referral Routine Comment: EVALUATION Physician Instructions: Reason For Exam: EVALUATION 01/23/19 20:07 Physician Consult Routine Comment: Consulting Provider: Jimmy Garcia Consulting Physician: Jimmy Garcia Reason for Consult: POSSIBLE NEW CHF, UNCONTROLLED BP 01/23/19 20:08 Physician Consult Routine Comment: Consulting Provider: Harvinder Villanueva Consulting Physician: Harvinder Villanueva Reason for Consult: DIZZINESS 01/29/19 15:49 Consult [Physician Consult] Routine Comment: Consulting Provider: Grant Bains Consulting Physician: Grant Bains Reason for Consult: right shoulder swelling Time Spent in preparation of Discharge (in minutes): 45 Hospital Course - Lab Results Lab Results: Most Recent Lab Values WBC 6.8 10^3/uL (4.5-11.0) 01/25/19 06:30 RBC 3.06 10^6/uL (3.5-6.1) L 01/25/19 06:30 Hgb 8.5 g/dL (12.0-16.0) L 01/25/19 06:30 Hct 26.9 % (36.0-48.0) L 01/25/19 06:30 MCV 87.9 fl (80.0-105.0) 01/25/19 06:30 MCH 27.8 pg (25.0-35.0) 01/25/19 06:30 MCHC 31.6 g/dl (31.0-37.0) 01/25/19 06:30 RDW 19.4 % (11.5-14.5) H 01/25/19 06:30 Plt Count 219 10^3/uL (120.0-450.0) 01/25/19 06:30 MPV 9.8 fl (7.0-11.0) 01/25/19 06:30 Neut % (Auto) 74.1 % (50.0-68.0) H 01/25/19 06:30 Lymph % (Auto) 14.5 % (22.0-35.0) L 01/25/19 06:30 [place] % (Auto) 10.2 % (1.0-6.0) H 01/25/19 06:30 Eos % (Auto) 0.9 % (1.5-5.0) L 01/25/19 06:30 Baso % (Auto) 0.3 % (0.0-3.0) 01/25/19 06:30 Lymph # (Auto) 1.0 (1.2-3.4) L 01/25/19 06:30 Screven # (Auto) 0.7 (0.1-0.6) H 01/25/19 06:30 Eos # (Auto) 0.1 (0.0-0.7) 01/25/19 06:30 Baso # (Auto) 0.02 K/mm3 (0.0-2.0) 01/25/19 06:30 Absolute Neuts (auto) 5.02 (1.4-6.5) 01/25/19 06:30 Sodium 137 mmol/L (132-148) 01/25/19 06:30 Potassium 4.6 mmol/L (3.6-5.0) 01/25/19 06:30 Chloride 104 mmol/L (98-107) 01/25/19 06:30 Carbon Dioxide 27 mmol/L (21-33) 01/25/19 06:30 Anion Gap 11 (10-20) 01/25/19 06:30 BUN 30 mg/dL (7-21) H 01/25/19 06:30 Creatinine 1.3 mg/dl (0.7-1.2) H 01/25/19 06:30 Est GFR ( Amer) 48 01/25/19 06:30 Est GFR (Non-Af Amer) 39 01/25/19 06:30 Random Glucose 134 mg/dL (70-110) H 01/25/19 06:30 Calcium 8.1 mg/dL (8.4-10.5) L 01/25/19 06:30 Phosphorus 3.8 mg/dL (2.5-4.5) 01/25/19 06:30 Magnesium 1.7 mg/dL (1.7-2.2) 01/25/19 06:30 Total Bilirubin 0.3 mg/dL (0.2-1.3) 01/25/19 06:30 AST 21 U/L (14-36) 01/25/19 06:30 ALT 21 U/L (7-56) 01/25/19 06:30 Alkaline Phosphatase 81 U/L (38-126) 01/25/19 06:30 Total Protein 5.4 g/dL (5.8-8.3) L 01/25/19 06:30 Albumin 2.9 g/dL (3.0-4.8) L 01/25/19 06:30 Globulin 2.5 gm/dL 01/25/19 06:30 Albumin/Globulin Ratio 1.1 (1.1-1.8) 01/25/19 06:30 - Hospital Course Hospital Course: 83-year-old F with PMH of atrial fibrillation and chronic hidalgo catheter who presents to [facility] ED for dizziness and 2 episodes of mechanical falls. Patient described the dizziness as feeling "lightheaded" and as though she is going to pass out. Patient sustained a fall 1 day prior during which she bruised her forehead and minor superficial abrasion to nose. Patient says she was using her 4 wheel walker at the time, and that she somehow tripped which caused the fall. Over the course of her hospital stay patient complained of left sided chest pain also. Troponins were found to be 0.08-->2.21-->1.81. EKG showed T-waves inversions in leads II, III, and aVF, as well as lateral leads V2-V6. Cardiology consulted, Dr. Garcia. ASA loading dose, metoprolol, nitro sublingual, heparin drip (no bolus was administered, as the patient is on eliquis) were ordered for patient's NSTEMI. Patient had cardiac cath on 01/22 that showed 70% LAD stenosis and 2 BIPIN were placed in the mid and distal LAD. Patient's hypertension was managed by Hydralazine 50mg PO TID, Zestril 40mg PO daily, Lopressor 12.5mg PO BID. Patient also had CHF exacerbation with BNP of 3450. Patient was treated with Lasix 20mg IVP, Elevate head of bed 30 degrees, Strict I&O, and Daily weight. Patient's paroxysmal atrial fibrillation was treated with Amiodarone 200mg PO QD, Lopressor 12.5mg PO BID, and Eliquis 2.5 mg PO BID. Physical therapy evaluated the patient and recommended TCU. Patient agreed and patient was medically stable to be transferred to TCU. In TCU patient's BP was elevated and Norvasc was added. Patient also completed a course of abx for UTI [Urine culture grew proteus]. Patient has long-term hidalgo catheter for chronic urinary retention and f/u with urologist monthly to replace catheter. As patient complained of right shoulder pain/swelling, a shoulder x- ray was done that revealed superior displacement of the humeral head consistent with chronic rotator cuff tear. Ortho was consulted and patient had fluid drained from right shoulder. Patient worked with PT who recommended home with services. Patient clinically improved throughout hospital course and was medically optimized for discharge home with outpatient follow up. - Follow up with Dr. Pacheco in 3-5 days - Follow up with Dr. Garcia in 3-5 days - Follow up with Dr. Bains in 3-5 days - Take medications as prescribed and resume home medications as indicated on discharge instructions - Take Plavix and Eliquis for 1 year, then will transition to Aspirin and Eliquis indefinitely. Please follow up with primary doctor and choral director for further details - Take Meclizine only as needed for dizziness - Return to ED if symptoms return Discharge instructions discussed in detail with patient and family at bedside who voiced understanding and agreement with plan. Discharge Exam - Additional Findings Additional findings: - Constitutional Appears: No Acute Distress - Head Exam Head Exam: NORMAL INSPECTION - Eye Exam Eye Exam: EOMI, Normal appearance Pupil Exam: NORMAL ACCOMODATION - ENT Exam ENT Exam: Mucous Membranes Moist, Normal Exam - Neck Exam Neck Exam: Normal Inspection - Respiratory Exam Respiratory Exam: Clear to Ausculation Bilateral. absent: Rales, Rhonchi, Wheezes - Cardiovascular Exam Cardiovascular Exam: RRR, +S1, +S2. absent: Gallop, Rubs, Murmur - GI/Abdominal Exam GI & Abdominal Exam: Soft. absent: Guarding, Hernia, Mass, Rebound - Extremities Exam Additional comments: right shoulder fluid collection, superior displacment of humerus - Back Exam Back Exam: NORMAL INSPECTION - Neurological Exam Neurological Exam: Alert, Awake, Oriented x3 - Psychiatric Exam Psychiatric exam: Normal Mood - Skin Skin Exam: Dry, Warm Discharge Plan - Discharge Medications Prescriptions: amLODIPine [Norvasc] 10 mg PO DAILY #30 tab Ferrous Sulfate [Feosol] 324 mg PO 0800,1400,1800 #30 ect Meclizine [Meclizine*] 25 mg PO Q12 PRN #15 tab PRN Reason: Dizziness - Follow Up Plan Condition: FAIR Disposition: HOME/ ROUTINE Instructions: Heart Failure, Adult (DC), Urinary Tract Infection, Adult (DC), Rotator Cuff Injury (DC) Additional Instructions: - Follow up with Dr. Pacheco in 3-5 days - Follow up with Dr. Garcia in 3-5 days - Follow up with Dr. Bains in 3-5 days - Take medications as prescribed and resume home medications as indicated on discharge instructions - Take Plavix and Eliquis for 1 year, then will transition to Aspirin and Eliquis indefinitely. Please follow up with primary doctor and choral director for further details - Take Meclizine only as needed for dizziness - Return to ED if symptoms return Referrals: Jimmy Garcia MD [Staff Provider] - Karly Barron MD [Primary Care Provider] - <Marla Clark - Last Filed: 01/31/19 11:16> Provider - Provider Date of Admission: 01/23/19 19:01 Attending physician: Marla Clark MD Primary care physician: Karly Pacheco MD Consults: 01/23/19 20:06 Social Work Referral Routine Comment: EVALUATION Physician Instructions: Reason For Exam: EVALUATION 01/23/19 20:07 Physician Consult Routine Comment: Consulting Provider: Jimmy Garcia Consulting Physician: Jimmy Garcia Reason for Consult: POSSIBLE NEW CHF, UNCONTROLLED BP 01/23/19 20:08 Physician Consult Routine Comment: Consulting Provider: Harvinder Villanueva Consulting Physician: Harvinder Villanueva Reason for Consult: DIZZINESS 01/29/19 15:49 Consult [Physician Consult] Routine Comment: Consulting Provider: Grant Bains Consulting Physician: Grant Bains Reason for Consult: right shoulder swelling Hospital Course - Lab Results Lab Results: Most Recent Lab Values WBC 8.3 10^3/uL (4.5-11.0) D 01/31/19 08:30 RBC 3.19 10^6/uL (3.5-6.1) L 01/31/19 08:30 Hgb 8.7 g/dL (12.0-16.0) L 01/31/19 08:30 Hct 28.0 % (36.0-48.0) L 01/31/19 08:30 MCV 87.8 fl (80.0-105.0) 01/31/19 08:30 MCH 27.3 pg (25.0-35.0) 01/31/19 08:30 MCHC 31.1 g/dl (31.0-37.0) 01/31/19 08:30 RDW 19.6 % (11.5-14.5) H 01/31/19 08:30 Plt Count 340 10^3/uL (120.0-450.0) 01/31/19 08:30 MPV 9.8 fl (7.0-11.0) 01/31/19 08:30 Neut % (Auto) 80.7 % (50.0-68.0) H 01/31/19 08:30 Lymph % (Auto) 12.5 % (22.0-35.0) L 01/31/19 08:30 [place] % (Auto) 6.4 % (1.0-6.0) H 01/31/19 08:30 Eos % (Auto) 0.2 % (1.5-5.0) L 01/31/19 08:30 Baso % (Auto) 0.2 % (0.0-3.0) 01/31/19 08:30 Lymph # (Auto) 1.0 (1.2-3.4) L 01/31/19 08:30 [place] # (Auto) 0.5 (0.1-0.6) 01/31/19 08:30 Eos # (Auto) 0.0 (0.0-0.7) 01/31/19 08:30 Baso # (Auto) 0.02 K/mm3 (0.0-2.0) 01/31/19 08:30 Absolute Neuts (auto) 6.68 (1.4-6.5) H 01/31/19 08:30 Sodium 134 mmol/L (132-148) 01/31/19 08:30 Potassium 4.5 mmol/L (3.6-5.0) 01/31/19 08:30 Chloride 100 mmol/L (98-107) 01/31/19 08:30 Carbon Dioxide 27 mmol/L (21-33) 01/31/19 08:30 Anion Gap 12 (10-20) 01/31/19 08:30 BUN 20 mg/dL (7-21) 01/31/19 08:30 Creatinine 1.0 mg/dl (0.7-1.2) 01/31/19 08:30 Est GFR ( Amer) > 60 01/31/19 08:30 Est GFR (Non-Af Amer) 53 01/31/19 08:30 Random Glucose 153 mg/dL (70-110) H 01/31/19 08:30 Calcium 8.9 mg/dL (8.4-10.5) 01/31/19 08:30 Phosphorus 3.9 mg/dL (2.5-4.5) 01/31/19 08:30 Magnesium 1.7 mg/dL (1.7-2.2) 01/31/19 08:30 Total Bilirubin 0.3 mg/dL (0.2-1.3) 01/25/19 06:30 AST 21 U/L (14-36) 01/25/19 06:30 ALT 21 U/L (7-56) 01/25/19 06:30 Alkaline Phosphatase 81 U/L (38-126) 01/25/19 06:30 Total Protein 5.4 g/dL (5.8-8.3) L 01/25/19 06:30 Albumin 2.9 g/dL (3.0-4.8) L 01/25/19 06:30 Globulin 2.5 gm/dL 01/25/19 06:30 Albumin/Globulin Ratio 1.1 (1.1-1.8) 01/25/19 06:30 Attending/Attestation - Attestation I have personally seen and examined this patient.: Yes I have fully participated in the care of the patient.: Yes I have reviewed all pertinent clinical information, including history, physical exam and plan: Yes Notes (Text): 01/31/19 11:11 83 year old female with past medical history of hypertension, paroxysmal afib, urinary incontinence with chronic indwelling hidalgo, and dyslipidemia who presented with complaint of dizziness and fall at home. Hospital course was complicated with CHF and episode of chest pain with elevated troponin suggestive of NSTEMI. Patient has cardiac cath which showed critical one vessel mid and distal LAD 70% stenosis and patient had BIPIN PTCA of mid and distal LAD. Patient is on plavix, metoprolol, lisinopril and statin. Norvasc was added for hypertension. She is on eliquis for history of paroxysmal afib. She completed course of antibiotics for UTI. She complained of right shoulder pain and swelling. Xray was reviewed and orthopedics drained fluid yesterday. Patient was tolerating PT well. Patient is discharged home today with family support. She lives alone but daughter states family frequently checks in and gives medications. I reviewed her medications with patient and daughter today. Follow up with pmd. Follow up with cardiology. Follow up with orthopedics. Marla Clark MD Hospitalist
[2019-01-31] MEDS: Multivitamin Therapeutic Tab PO SCH (08:26)
[2019-01-31 09:01] LABS: BASO # 0.02 K/mm3 (0.0-2.0); BASO % 0.2 % (0.0-3.0); EOS % 0.2 % (1.5-5.0); HEMOGLOBIN 8.7 g/dL (12.0-16.0); LYMPH % 12.5 % (22.0-35.0); MEAN CELL VOLUME 87.8 fl (80.0-105.0); MEAN CORPUSCULAR HEMOGLOBIN 27.3 pg (25.0-35.0); MEAN CORPUSCULAR HGB CONC 31.1 g/dl (31.0-37.0); MEAN PLATELET VOLUME 9.8 fl (7.0-11.0); MONO # 0.5 (0.1-0.6); MONO % 6.4 % (1.0-6.0); RBC 3.19 10^6/uL (3.5-6.1); RED CELL DISTRIBUTION WIDTH 19.6 % (11.5-14.5); WHITE BLOOD COUNT 8.3 10^3/uL (4.5-11.0)
[2019-01-31 09:36] LABS: BLOOD UREA NITROGEN 20 mg/dL (7-21); CALCIUM 8.9 mg/dL (8.4-10.5); GFR NON-AFRICAN AMERICAN 53
[2019-01-31 10:34] VITALS: BP 136/66
[2019-01-31 10:51] VITALS: PULSE 69; TEMP 97.1; O2SAT 93
--- NOTE | 2019-02-02 07:32 | PROCN ---
DATE: 01/30/2019 The patient is being seen for synovial cyst of the right shoulder communicating with the AC joint and ostearthritis of her right glenohumeral joint from chronic ruptured rotator cuff. I saw her the day before, ordered the medications which were Depo-Medrol and Marcaine, we aspirated 40 mL of synovial fluid from right shoulder that was at this time subcutaneous connecting to the AC joint, and we expressed as much as we can. It was clear. No signs of infection, and then we injected Depo-Medrol and Marcaine for pain relief and to get temperary relief of pain. I put her in a sling, and she should start feeling better with Depo-Medrol and Marcaine. 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 Grant Bains DO MTDOliver
== END 2019-01-31 13:41 | disposition home or self-care (01) | DRG 281 ==
LOC: TRCU 19:01
PROVIDERS: ADMIT Internal Medicine; ATTEND Internal Medicine
PROC: F07Z9FZ Gait Training/Functional Ambulation Treatment using Assistive, Adaptive, Supportive or Protective Equipment (ICD-10-PCS; principal; 2019-01-24)
PROC: F07M6ZZ Therapeutic Exercise Treatment of Musculoskeletal System - Whole Body (ICD-10-PCS; 2019-01-24)
PROC: F08Z2ZZ Grooming/Personal Hygiene Treatment (ICD-10-PCS; 2019-01-24)
PROC: 0R9J3ZZ Drainage of Right Shoulder Joint, Percutaneous Approach (ICD-10-PCS; 2019-01-30)
PROC: 3E0U33Z Introduction of Anti-inflammatory into Joints, Percutaneous Approach (ICD-10-PCS; 2019-01-30)
PROC: 3E0U3BZ Introduction of Anesthetic Agent into Joints, Percutaneous Approach (ICD-10-PCS; 2019-01-30)
DX: I21.4 Non-ST elevation (NSTEMI) myocardial infarction (principal); I13.0 Hypertensive heart and chronic kidney disease with heart failure and stage 1 through stage 4 chronic kidney disease, or unspecified chronic kidney disease; N39.0 Urinary tract infection, site not specified; E78.5 Hyperlipidemia, unspecified; H81.10 Benign paroxysmal vertigo, unspecified ear; I08.3 Combined rheumatic disorders of mitral, aortic and tricuspid valves; I25.10 Atherosclerotic heart disease of native coronary artery without angina pectoris; I27.20 Pulmonary hypertension, unspecified; I48.0 Paroxysmal atrial fibrillation; I50.9 Heart failure, unspecified; I70.0 Atherosclerosis of aorta; K21.9 Gastro-esophageal reflux disease without esophagitis; M75.100 Unspecified rotator cuff tear or rupture of unspecified shoulder, not specified as traumatic; N18.9 Chronic kidney disease, unspecified; N31.9 Neuromuscular dysfunction of bladder, unspecified; W01.0XXA Fall on same level from slipping, tripping and stumbling without subsequent striking against object, initial encounter; Y92.009 Unspecified place in unspecified non-institutional (private) residence as the place of occurrence of the external cause; Z79.01 Long term (current) use of anticoagulants; Z79.02 Long term (current) use of antithrombotics/antiplatelets; Z79.899 Other long term (current) drug therapy; B96.4 Proteus (mirabilis) (morganii) as the cause of diseases classified elsewhere; Z85.41 Personal history of malignant neoplasm of cervix uteri; Z85.42 Personal history of malignant neoplasm of other parts of uterus; Z87.440 Personal history of urinary (tract) infections; Z90.49 Acquired absence of other specified parts of digestive tract; Z90.710 Acquired absence of both cervix and uterus; Z92.3 Personal history of irradiation; Z95.5 Presence of coronary angioplasty implant and graft; Z96.60 Presence of unspecified orthopedic joint implant; Z82.49 Family history of ischemic heart disease and other diseases of the circulatory system; Z80.42 Family history of malignant neoplasm of prostate; M71.311 Other bursal cyst, right shoulder; M19.011 Primary osteoarthritis, right shoulder